=== PATIENT | female | born 1955 | race Caucasian/White ===

== ENCOUNTER → 2021-08-03 09:05 | Outpatient (BNVA) | payer MEDICARE, SELFPAY | PROVIDERS: PCP Internal Medicine; Visit Provider Internal Medicine | DX: M50.30 Other cervical disc degeneration, unspecified cervical region (principal); G89.4 Chronic pain syndrome | CPT/HCPCS: 99202 ==

== ENCOUNTER 2021-08-03 10:19 | Emergency (ER) | payer MEDICARE, SELFPAY ==
--- NOTE | 2021-08-03 | ECG_ITS ---
Test Reason : CP Blood Pressure : / mmHG Vent. Rate : 137 BPM Atrial Rate : 137 BPM P-R Int : 148 ms QRS Dur : 074 ms QT Int : 276 ms P-R-T Axes : 073 034 035 degrees QTc Int : 416 ms Sinus tachycardia Possible Left atrial enlargement Borderline ECG No previous ECGs available Referred By: Generic ED Physician Electronically Signed By:Shailesh Thrasher
--- NOTE | ~2021-08-03 | US_ITS ---
EXAMINATION: US ABDOMEN LIMITED CLINICAL INFORMATION: Upper abdominal pain. Assess for cholelithiasis. COMPARISON: CT abdomen and pelvis 08/03/2021. TECHNIQUE: Real-time imaging of the right upper quadrant abdominal viscera. FINDINGS: GALLBLADDER: There are 3 small polyps projecting into the gallbladder lumen, largest only 3 mm. There is no gallstone or sludge. No gallbladder wall thickening or subserosal edema or pericholecystic fluid. COMMON BILE DUCT: Normal in caliber measuring 0.5 cm in diameter. No ductal calculus. FREE FLUID: None. US/US abdomen limited IMPRESSION: 1. No cholelithiasis, gallbladder wall thickening, or biliary ductal dilatation. 2. 3 small gallbladder polyps, largest only 3 mm.
--- NOTE | ~2021-08-03 | CT_ITS ---
EXAMINATION: CT ABDOMEN AND PELVIS WITH CONTRAST CLINICAL INFORMATION: Upper abdominal pain COMPARISON: None TECHNIQUE: Multidetector volumetric images were obtained from the superior aspect of the liver through the pubic symphysis following administration 85 mL of Omnipaque 350 intravenous contrast. Sagittal and coronal reformatted images were obtained on the technologist's workstation. Oral contrast: Yes This CT examination was performed using dose optimization techniques as appropriate, variously including the following: *Automated exposure control *Adjustment of mA and/or kV according to patient size (this includes techniques or standardized protocols for targeted exams where dose is matched to indication/reason for exam; i.e. extremities or head) *Use of iterative reconstruction technique DLP: 511 mGy-cm FINDINGS: LUNG BASES: The visualized lung bases are unremarkable. LIVER, GALLBLADDER, AND BILIARY TREE: The liver is normal in size, shape, and attenuation. No focal hepatic lesion or biliary ductal dilatation is present. The gallbladder is unremarkable with no evidence of radiopaque gallstones, gallbladder wall thickening, or obvious pericholecystic inflammatory changes. PANCREAS: Unremarkable. SPLEEN: Unremarkable. ADRENAL GLANDS: Unremarkable. KIDNEYS AND URETERS: The kidneys are normal in size, shape, and attenuation. No hydronephrosis, hydroureter, or calculi seen. No perinephric stranding. BLADDER: Unremarkable. GASTROINTESTINAL TRACT: There is mild diverticulosis of the colon. There is no evidence of diverticulitis. There is a small duodenal diverticulum adjacent to the head of the pancreas. The small and large bowel are otherwise unremarkable. The appendix is unremarkable. Stomach is unremarkable. ABDOMINAL WALL: There is a small umbilical hernia containing fat. LYMPH NODES: Normal. VASCULAR: Unremarkable. PELVIC VISCERA: Unremarkable. OSSEOUS STRUCTURES: There are degenerative changes and scoliosis of the spine. There is a 1 cm sclerotic density in the left iliac bone. This is nonspecific but may represent a bone island. CT/CT abdomen pelvis w con IMPRESSION: Mild diverticulosis of the colon. No evidence of diverticulitis. Fleischner guidelines were followed.
[2021-08-03 11:12] VITALS: BP 114/73; PULSE 130; RESP 18; TEMP 36.6; O2SAT 99; BMI 26.4
--- NOTE | 2021-08-03 11:49 | ED.ABDPAIN ---
HPI - Abdominal Pain General Chief Complaint: Abdominal Pain Stated Complaint: Abd pain Time Seen by Provider: 08/03/21 11:39 Source: patient Mode of arrival: ambulatory Limitations: no limitations History of Present Illness HPI narrative: This is 65 years old female presented to the emergency department ambulatory with a chief complaint of abdominal pain, the pain is localized in the upper abdomen, no radiation no vomiting. She states she has been evaluated in our emergency department she was told that she has a UTI MD elicited complaint: abdominal pain Pertinent past history: none Onset (ago): week(s) (4) Pain Consistency: constant Location: diffuse Severity: moderate Quality: cramping Radiation: epigastric Migration to: no migration Exacerbating factors: nothing Relieving factors: nothing Related Data Home Medications Medication Instructions Recorded Confirmed oxycodone-acetaminophen 10 mg-325 1 tab PO QID PRN tab 08/03/21 mg tablet (Percocet) valacyclovir 500 mg tablet 500 mg PO DAILY 08/03/21 Previous Rx's Medication Instructions Recorded omeprazole 10 mg capsule,delayed 10 mg PO DAILY #20 cap 08/03/21 release oxycodone 5 mg capsule 5 mg PO Q8H PRN #12 cap 08/03/21 Allergies Allergy/AdvReac Type Severity Reaction Status Date / Time Sulfa (Sulfonamide Allergy Intermediate Vomiting Verified 08/03/21 11:12 Antibiotics) amoxicillin Allergy Unknown unknown Verified 08/03/21 11:12 Phenylpiperazine Allergy Unknown Unknown Verified 08/03/21 11:12 Antidepressant Tetracyclic Antidepressants Allergy Unknown Unknown Verified 08/03/21 11:12 Review of Systems Review of Systems Yes all other systems are reviewed and are negative Constitutional: Reports no additional constitutional complaints Reports system reviewed and no additional complaints, except as documented Cardiovascular: Reports no additional cardiovascular complaints Gastrointestinal: Denies diarrhea, Denies loose stools, Denies nausea and Denies vomiting Physical Exam Vital Signs: Vital Signs: Last Vital Signs Temp 97.8 F 08/03/21 11:12 Pulse 130 H 08/03/21 11:12 Resp 16 08/03/21 12:18 BP 114/73 08/03/21 11:12 Pulse Ox 99 08/03/21 11:12 BMI result Body Mass Index 26.4 Const: General: cooperative, comfortable and no acute distress HENMT: Head: Yes normal to inspection Face and sinus: Yes normal facial exam Mouth: Normal oral and palatal mucosa present Neck: Neck: Yes normal visual inspection, Yes full ROM and Yes no lymphadenopathy Chest: Chest palpation & inspection: normal inspection of the chest Resp: Effort & Inspection: normal respiratory effort Auscultation: clear to auscultation bilaterally Cardio: Jugular venous distension: no JVD Rate: regular rate Rhythm: regular rhythm GI: Inspection: Yes normal to inspection Palpation (GI): Soft to palpation, not firm, nontender and no guarding Skin: General skin exam: no rashes or lesions noted and elasticity normal Course Reevaluation(s) Reevaluation #1: Re-examination of the patient of 15 30 she is feeling better, CT scan of the abdomen and pelvis was normal, ultrasound showed a gallbladder polyp a no cholecystitis. I think the patient can be discharged home. I do know if the gallbladder polyp is giving the patient pain or not, I will refer her to surgery as outpatient MDM - Abdominal Pain Lab Data Result diagrams: 08/03/21 11:56 08/03/21 11:56 Labs: Lab Results 08/03/21 08/03/21 Range/Units 11:56 11:56 WBC 13.7 H (4.8-10.8) X10*3/uL RBC 3.67 L (4.20-5.50) X10*6/uL Hgb 12.3 (12.0-16.0) g/dl Hct 36.5 L (37.0-47.0) % MCV 99.5 H (80.0-98.0) fL MCH 33.5 H (27.0-33.0) pg MCHC 33.7 (31.0-35.0) g/dl RDW 12.4 (11.0-16.0) % Plt Count 445 H (160-400) X10*3/uL MPV 8.8 L (9.4-12.3) fL Immature Gran % (Auto) 1.0 H (0.0-0.4) % Neut % (Auto) 78.1 H (45-73) % Lymph % (Auto) 15.2 L (20-40) % Steele % (Auto) 5.2 (2-11) % Eos % (Auto) 0.1 (0-4) % Baso % (Auto) 0.4 (0-2) % Lymph # (Auto) 2.1 (1.2-4.9) X10*3/uL Steele # (Auto) 0.7 (0.1-1.2) X10*3/uL Eos # (Auto) 0.0 (0.0-0.4) X10*3/uL Baso # (Auto) 0.1 (0.0-0.2) X10*3/uL Abs Immat Gran (auto) 0.14 H (0.00-0.03) X10*3/uL Absolute Neuts (auto) 10.7 H (2.0-8.3) x10*3/uL Absolute Nucleated RBC 0.000 (0.0-0.012) X10*3/uL Nucleated RBC % (auto) 0.0 (0.0-0.2) /100WBC Sodium 138 (135-145) mmol/L Potassium 4.3 (3.3-5.1) mmol/L Chloride 108 (96-108) mmol/L Carbon Dioxide 20 L (22-29) mmol/L Anion Gap 14 (12-20) BUN 41 H (9-16) mg/dL Creatinine 0.83 (0.5-1.4) mg/dL Estim Creat Clear Calc 66.3 Estimated GFR > 60 Random Glucose 126 H (60-115) mg/dL Calcium 10.1 (8.4-10.2) mg/dL Total Bilirubin 0.4 (0.0-1.0) mg/dL AST 19 (5-31) U/L ALT 22 (0-31) U/L Alkaline Phosphatase 55 (39-117) U/L Total Protein 6.8 (6.5-8.0) g/dL Albumin 4.4 (3.5-5.0) g/dL Lipase 33 (8-78) U/L Imaging Data CT scan - abdomen: Radiologist's impression: is mild diverticulosis of the colon. There is no evidence of diverticulitis. There is a small duodenal diverticulum adjacent to the head of the pancreas. The small and large bowel are otherwise unremarkable. The appendix is unremarkable. Stomach is unremarkable. ABDOMINAL WALL: There is a small umbilical hernia containing fat. LYMPH NODES: Normal. VASCULAR: Unremarkable. PELVIC VISCERA: Unremarkable.? OSSEOUS STRUCTURES: There are degenerative changes and scoliosis of the spine. There is a 1 cm sclerotic density in the left iliac bone. This is nonspecific but may represent a bone island. CT/CT abdomen pelvis w con IMPRESSION: Mild diverticulosis of the colon. No evidence of diverticulitis. ? Fleischner guidelines were followed. Dictated By: Rimma Segal MD Signed By: <Electronically signed by Rimma Segal MD in [place]> 08/03/21 1330 DD/ 1318 US - abdomen: Radiologist's impression: CT abdomen and pelvis 08/03/2021. TECHNIQUE: Real-time imaging of the right upper quadrant abdominal viscera. FINDINGS: GALLBLADDER: There are 3 small polyps projecting into the gallbladder lumen, largest only 3 mm. There is no gallstone or sludge. No gallbladder wall thickening or subserosal edema or pericholecystic fluid. COMMON BILE DUCT: Normal in caliber measuring 0.5 cm in diameter. No ductal calculus. FREE FLUID: None. US/US abdomen limited IMPRESSION: ? 1. No cholelithiasis, gallbladder wall thickening, or biliary ductal dilatation. 2. 3 small gallbladder polyps, largest only 3 mm. ? Dictated By: Nando Reyes MD Signed By: <Electronically signed by Nando Reyes MD in [place]> Discharge Plan Discharge Clinical Impression: Abdominal pain in female, Gall bladder polyp Patient Disposition: Home, Self-Care Instructions: Abdominal Pain (ED) Additional Instructions: clear liquid diet,prilosec as directed return if worse Prescriptions: New oxycodone 5 mg capsule 5 mg PO Q8H PRN (Reason: pain) Qty: 12 RF: 0 omeprazole 10 mg capsule,delayed release(DR/EC) 10 mg PO DAILY Qty: 20 RF: 0 Referrals: Maykel Joseph MD [Physician] - 2 days PMF Past Medical History Medical History Chronic pain syndrome Colon, diverticulosis De Quervain's tenosynovitis Degeneration of cervical intervertebral disc Depression with anxiety Enchondroma of bone Herpes simplex type 2 infection Hyperlipidemia Lumbago Plantar fasciitis Rosacea Tobacco abuse Surgical History History of carpal tunnel release History of nasal surgery Hx of colonoscopy Social History Social History Alcohol intake: never Patient Tobacco Use Status: Former Tobacco user Use of substances other than those prescribed or required for medical reasons: No Advance Directives: No Advance Directives Information Provided: Yes
[2021-08-03 12:07] LABS: MANUAL DIFF FLAG NO
[2021-08-03 12:08] LABS: Basophils Absolute Auto 0.1 X10*3/uL (0.0-0.2); Basophils Percent Auto 0.4 % (0-2); Eosinophils Percent Auto 0.1 % (0-4); Hematocrit 36.5 % (37.0-47.0); Hemoglobin 12.3 g/dl (12.0-16.0); Imm Gran Abs Auto 0.14 X10*3/uL (0.00-0.03); Lymphocytes Absolute Auto 2.1 X10*3/uL (1.2-4.9); Lymphocytes Percent Auto 15.2 % (20-40); Mean Corpuscular HGB Conc 33.7 g/dl (31.0-35.0); Mean Corpuscular Hemoglobin 33.5 pg (27.0-33.0); Mean Corpuscular Volume 99.5 fL (80.0-98.0); Mean Platelet Volume 8.8 fL (9.4-12.3); Monocytes Absolute Auto 0.7 X10*3/uL (0.1-1.2); Monocytes Percent Auto 5.2 % (2-11); Neutrophils Absolute Auto 10.7 x10*3/uL (2.0-8.3); Neutrophils Percent Auto 78.1 % (45-73); Platelet Count 445 X10*3/uL (160-400); Red Blood Count 3.67 X10*6/uL (4.20-5.50); Red Cell Distribution Width 12.4 % (11.0-16.0); White Blood Count 13.7 X10*3/uL (4.8-10.8)
[2021-08-03 12:18] VITALS: RESP 16
[2021-08-03] MEDS: ondansetron HCL 4 MG/2 ML VIAL IVPUSH (12:18)
[2021-08-03] MEDS: 0.9 % Sodium Chloride 1,000 ML 999 ML IVCONT (12:18)
[2021-08-03] MEDS: Morphine Sulfate 4 MG/ML CARTRIDGE IVPUSH (12:18)
[2021-08-03 12:37] LABS: Alanine Aminotransferase 22 U/L (0-31); Albumin Level 4.4 g/dL (3.5-5.0); Alkaline Phosphatase 55 U/L (39-117); Anion Gap 14 (12-20); Aspartate Amino Transferase 19 U/L (5-31); Bilirubin Total 0.4 mg/dL (0.0-1.0); Blood Urea Nitrogen 41 mg/dL (9-16); Calcium 10.1 mg/dL (8.4-10.2); Carbon Dioxide 20 mmol/L (22-29); Chloride 108 mmol/L (96-108); Creatinine Clr Calc Pharmacy 66.3; Estimated Glomerular Filt Rate > 60; Glucose Random 126 mg/dL (60-115); Lipase 33 U/L (8-78); Potassium 4.3 mmol/L (3.3-5.1); Sodium 138 mmol/L (135-145); Total Protein 6.8 g/dL (6.5-8.0)
[2021-08-03] MEDS: iohexoL 350 MG/ML 100 ML INFUS..BTL IV (13:20)
[2021-08-03 13:40] VITALS: BP 110/70; RESP 18
[2021-08-03 15:52] LABS: Appearance Urine CLEAR; Color Urine YELLOW; Glucose Urine UA NEG (NEG); Leukocyte Esterase Urine NEG (NEG); Nitrite Urine NEG (NEG); PH 5.5 (5.0-8.0); Urine Blood NEG (NEG); Urine Ketones 5 MG/DL (NEG); Urine Protein NEG (NEG-TRACE)
[2021-08-03 16:00] VITALS: BP 108/67; PULSE 102; RESP 18; O2SAT 94
[2021-08-03 16:05] VITALS: PULSE 98
--- NOTE | 2021-08-03 16:05 | PC.NURSE ---
VITALS REPORTED TO DR PATEL. DARIN FOR OR HOME. PT AGREEABLE TO THIS PLAN. STATES NO QUESTIONS.
== END 2021-08-03 16:07 | disposition home or self-care (01) ==
PROVIDERS: Emergency Provider Emergency Medicine
DX: K82.4 Cholesterolosis of gallbladder (principal); R10.9 Unspecified abdominal pain; F17.200 Nicotine dependence, unspecified, uncomplicated
CPT/HCPCS: 36415; 74177; 76705; 80053; 81003; 83690; 85025; 93005; 96361; 96374; 96375; 99284; 99285; J2270; J2405; Q9967

== ENCOUNTER → 2021-08-17 10:31 | Outpatient (BNVA) | payer MEDICARE, SELFPAY | PROVIDERS: Visit Provider Internal Medicine | DX: G89.4 Chronic pain syndrome (principal) | CPT/HCPCS: 99212 ==

== ENCOUNTER → 2021-09-11 10:27 | Outpatient (BNVA) | payer MEDICARE, SELFPAY | PROVIDERS: Visit Provider Internal Medicine | DX: Z51.81 Encounter for therapeutic drug level monitoring (principal); F11.20 Opioid dependence, uncomplicated; G89.4 Chronic pain syndrome | CPT/HCPCS: 99212 ==

== ENCOUNTER → 2021-10-12 10:33 | Outpatient (BNVA) | payer MEDICARE, SELFPAY | PROVIDERS: Visit Provider Internal Medicine | DX: Z51.81 Encounter for therapeutic drug level monitoring (principal); F11.20 Opioid dependence, uncomplicated; G89.4 Chronic pain syndrome | CPT/HCPCS: 99212 ==

== ENCOUNTER → 2021-11-09 10:40 | Outpatient (BNVA) | payer MEDICARE, SELFPAY | PROVIDERS: Visit Provider Internal Medicine | DX: G89.4 Chronic pain syndrome (principal); Z79.891 Long term (current) use of opiate analgesic | CPT/HCPCS: 99212 ==

== ENCOUNTER → 2021-12-07 10:46 | Outpatient (BNVA) | payer MEDICARE, SELFPAY | PROVIDERS: Visit Provider Internal Medicine | DX: Z51.81 Encounter for therapeutic drug level monitoring (principal); F11.20 Opioid dependence, uncomplicated | CPT/HCPCS: 99212 ==

== ENCOUNTER → 2022-01-04 10:23 | Outpatient (BNVA) | payer MEDICARE, SELFPAY | PROVIDERS: Visit Provider Internal Medicine | DX: Z51.81 Encounter for therapeutic drug level monitoring (principal); F11.20 Opioid dependence, uncomplicated | CPT/HCPCS: 99211 ==

== ENCOUNTER → 2022-02-08 09:55 | Outpatient (BNVA) | payer MEDICARE, SELFPAY | PROVIDERS: Visit Provider Internal Medicine | DX: Z51.81 Encounter for therapeutic drug level monitoring (principal); F11.20 Opioid dependence, uncomplicated; M50.30 Other cervical disc degeneration, unspecified cervical region; G89.4 Chronic pain syndrome | CPT/HCPCS: 99212 ==

== ENCOUNTER → 2022-03-15 09:47 | Outpatient (BNVA) | payer MEDICARE, SELFPAY | PROVIDERS: PCP Obstetrics & Gynecology; Visit Provider Internal Medicine | DX: Z51.81 Encounter for therapeutic drug level monitoring (principal); F11.20 Opioid dependence, uncomplicated | CPT/HCPCS: 99211 ==

== ENCOUNTER 2022-04-12 09:42 | Outpatient (REF) | payer MEDICARE, SELFPAY ==
[2022-04-12 11:20] LABS: MANUAL DIFF FLAG NO
[2022-04-12 12:05] LABS: Basophils Absolute Auto 0.1 X10*3/uL (0.0-0.2); Basophils Percent Auto 0.7 % (0-2); Eosinophils Absolute Auto 0.2 X10*3/uL (0.0-0.4); Eosinophils Percent Auto 2.2 % (0-4); Hematocrit 44.1 % (37.0-47.0); Hemoglobin 14.9 g/dl (12.0-16.0); Imm Gran Abs Auto 0.03 X10*3/uL (0.00-0.03); Imm Gran Pct Auto 0.4 % (0.0-0.4); Lymphocytes Percent Auto 29.6 % (20-40); Mean Corpuscular HGB Conc 33.8 g/dl (31.0-35.0); Mean Corpuscular Hemoglobin 32.7 pg (27.0-33.0); Mean Corpuscular Volume 96.7 fL (80.0-98.0); Monocytes Absolute Auto 0.6 X10*3/uL (0.1-1.2); Monocytes Percent Auto 9.3 % (2-11); Neutrophils Absolute Auto 3.9 x10*3/uL (2.0-8.3); Neutrophils Percent Auto 57.8 % (45-73); Platelet Count 379 X10*3/uL (160-400); Red Blood Count 4.56 X10*6/uL (4.20-5.50); Red Cell Distribution Width 12.3 % (11.0-16.0); White Blood Count 6.7 X10*3/uL (4.8-10.8)
[2022-04-12 12:18] LABS: Estimated Average Glucose 108 mg/dL; Hemoglobin A1c % 5.4 %
[2022-04-12 12:53] LABS: Alanine Aminotransferase 25 U/L (0-31); Albumin Level 4.6 g/dL (3.5-5.0); Alkaline Phosphatase 72 U/L (39-117); Anion Gap 16 (12-20); Aspartate Amino Transferase 23 U/L (5-31); Bilirubin Direct 0.2 mg/dL (0.0-0.5); Bilirubin Total 0.4 mg/dL (0.0-1.0); Blood Urea Nitrogen 17 mg/dL (9-16); Calcium 9.3 mg/dL (8.4-10.2); Carbon Dioxide 24 mmol/L (22-29); Chloride 103 mmol/L (96-108); Estimated Glomerular Filt Rate > 60; Glucose Random 102 mg/dL (60-115); Potassium 5.1 mmol/L (3.3-5.1); Sodium 138 mmol/L (135-145); Total Protein 7.1 g/dL (6.5-8.0)
== END 2022-04-12 09:43 | disposition home or self-care (01) ==
LOC: HO.LAB 09:42
PROVIDERS: Absent Provider Surgery; PCP Obstetrics & Gynecology; Visit Provider Internal Medicine
DX: R10.13 Epigastric pain (principal); R10.11 Right upper quadrant pain; K82.4 Cholesterolosis of gallbladder; E78.5 Hyperlipidemia, unspecified; Z72.0 Tobacco use; Z79.899 Other long term (current) drug therapy; Z79.891 Long term (current) use of opiate analgesic
CPT/HCPCS: 36415; 80048; 80076; 83036; 85025; 99202; 99211

== ENCOUNTER → 2022-05-14 10:50 | Outpatient (BNVA) | payer MEDICARE, SELFPAY | PROVIDERS: PCP Obstetrics & Gynecology; Visit Provider Internal Medicine | DX: G89.4 Chronic pain syndrome (principal); Z79.891 Long term (current) use of opiate analgesic | CPT/HCPCS: 99212 ==

== ENCOUNTER → 2022-06-11 09:58 | Outpatient (BNVA) | payer MEDICARE, SELFPAY | PROVIDERS: PCP Obstetrics & Gynecology; Visit Provider Internal Medicine | DX: Z51.81 Encounter for therapeutic drug level monitoring (principal); Z79.899 Other long term (current) drug therapy | CPT/HCPCS: 99211 ==

== ENCOUNTER → 2022-07-12 09:43 | Outpatient (BNVA) | payer MEDICARE, SELFPAY | PROVIDERS: PCP Obstetrics & Gynecology; Visit Provider Anesthesiology | DX: Z51.81 Encounter for therapeutic drug level monitoring (principal); F11.20 Opioid dependence, uncomplicated | CPT/HCPCS: 99211 ==

== ENCOUNTER 2022-07-27 08:53 | Outpatient (REF) | payer MEDICARE, SELFPAY ==
--- NOTE | ~2022-07-27 | US_ITS ---
EXAMINATION: US ABDOMEN LIMITED CLINICAL INFORMATION: Right upper quadrant pain. COMPARISON: Ultrasound abdomen limited and CT abdomen and pelvis 08/03/2021. TECHNIQUE: Real-time imaging of the right upper quadrant abdominal viscera. FINDINGS: PANCREAS: Normal. LIVER: Normal. The liver is normal in size. The liver contour is normal. Parenchymal echogenicity is normal. No focal hepatic lesion. There is no intrahepatic biliary duct dilatation seen. GALLBLADDER: Gallbladder is normal in size. There are 3 echogenic densities adjacent to the gallbladder wall that do not move or shadow suggestive of gallbladder wall polyps. These measure 3 x 6 x 4 mm, 4 x 5 x 3 mm and 3 x 2 x 4 mm. No definite gallstones. COMMON BILE DUCT: Normal in caliber measuring 0.5 cm in diameter. RIGHT KIDNEY: Normal. No hydronephrosis. No renal calculi or focal parenchymal lesions. The kidney measures 10.7 cm in maximum dimension. FREE FLUID: None. US/US abdomen limited IMPRESSION: Small gallbladder wall polyps similar to July 2021 exam. Otherwise unremarkable exam.
== END 2022-07-27 08:54 | disposition home or self-care (01) ==
LOC: HO.US 08:53
PROVIDERS: Visit Provider Surgery
DX: R10.11 Right upper quadrant pain (principal); R10.13 Epigastric pain
CPT/HCPCS: 76705

== ENCOUNTER → 2022-08-09 08:16 | Outpatient (BNVA) | payer MEDICARE, SELFPAY | PROVIDERS: PCP Obstetrics & Gynecology; Visit Provider Internal Medicine | DX: G89.4 Chronic pain syndrome (principal); M70.62 Trochanteric bursitis, left hip; Z79.891 Long term (current) use of opiate analgesic | CPT/HCPCS: 99212 ==

== ENCOUNTER → 2022-08-11 11:08 | Outpatient (BNVA) | payer MEDICARE, SELFPAY | PROVIDERS: PCP Obstetrics & Gynecology; Visit Provider Surgery | DX: G89.4 Chronic pain syndrome (principal); K82.4 Cholesterolosis of gallbladder; F41.8 Other specified anxiety disorders; Z79.891 Long term (current) use of opiate analgesic | CPT/HCPCS: 99212 ==

== ENCOUNTER → 2022-09-10 10:42 | Outpatient (BNVA) | payer MEDICARE, SELFPAY | PROVIDERS: PCP Obstetrics & Gynecology; Visit Provider Internal Medicine | DX: G89.4 Chronic pain syndrome (principal); M70.62 Trochanteric bursitis, left hip; M47.816 Spondylosis without myelopathy or radiculopathy, lumbar region; Z79.891 Long term (current) use of opiate analgesic | CPT/HCPCS: 99212 ==

== ENCOUNTER → 2022-10-08 08:55 | Outpatient (BNVA) | payer MEDICARE, SELFPAY | PROVIDERS: PCP Obstetrics & Gynecology; Visit Provider Internal Medicine | DX: Z13.89 Encounter for screening for other disorder (principal) ==

== ENCOUNTER 2022-10-20 12:42 | Day surgery (SDC) | payer MEDICARE, SELFPAY ==
[2022-10-13 15:27] VITALS: BMI 24.2
--- NOTE | ~2022-10-20 | FL_ITS ---
EXAMINATION: XR FLUOROSCOPY WITH IMAGES CLINICAL INFORMATION: Lumbar and hip pain. Pain management procedures. COMPARISON: CT pelvis 08/03/2021 TECHNIQUE: Fluoroscopy Supervised By: Dr. Gumaro Newberry. Fluoroscopy Time: 0.3 minutes. Cumulative Dose: 2.45 mGy. DAP: 0.572 Gycm2. Images: 4. FINDINGS: There are spinal needles overlying the bilateral outer L3, L4, and L5 neural foramen. There is contrast seen in the respective nerve sheaths. Some early transforaminal epidural extension is suggested. No visible vascular communication. There are multilevel degenerative changes lumbar spine with variable disc narrowing and lumbar vertebral body spurring. There is also a spinal needle seen with tip at the left hip greater trochanter. There is contrast overlying the trochanter/bursal. No visible vascular communication. FL/FL guidance in OR IMPRESSION: Fluoroscopy for pain management procedures.
[2022-10-20 13:12] VITALS: BP 130/83; PULSE 88; RESP 16; TEMP 36.5; O2SAT 97
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
--- NOTE | 2022-10-20 16:07 | P.BOP_ITS ---
Brief Operative Note Date of Service: 10/20/22 Pre-op diagnosis: Lumbar spondylosis, Left greater trochanteric syndrome/bursitis Post-op diagnosis: same Procedure: Therapeutic bilateral L3, L4 medial branch blocks, L5 dorsal ramus block; Left greater trochanteric bursa steroid injection Implants: None Surgeon: Gumaro Newberry MD Anesthesia: MAC Was an Safety Representative used for this Procedure?: No Estimated blood loss (mL): 1 Pathology: none sent Condition: stable Disposition: PACU
--- NOTE | 2022-10-20 16:07 | MHC.SHP ---
Pre-Procedural Eval Section A Date of Service: 10/20/22 The patient is an INPATIENT: No Changes since office visit: Yes Patient answered all questions The History & Physical has been completed within 30 days and I have reviewed it.: No Section B Chief Complaint: Trochanteric bursitis, L hip,lumbar spondylosis Relevant Family History (Specify if Yes): No Relevant Social History: None Present Medications: see Short Stay Collaborative assessment Medical History: No relevant PMH History of Previous Operations: No relevant previous surgery Allergies: Allergies Allergy/AdvReac Type Severity Reaction Status Date / Time Phenylpiperazine Allergy Severe skin Verified 10/20/22 13:06 Antidepressant sores Tetracyclic Antidepressants Allergy Severe skin Verified 10/20/22 13:06 sores amoxicillin Allergy Intermediate Nausea and Verified 10/20/22 13:06 Vomiting Sulfa (Sulfonamide Allergy Intermediate Nausea and Verified 10/20/22 13:06 Antibiotics) Vomiting Review of Systems Sugical H&P ROS: Negative: Constitution, Cardiovascular and Respiratory Exam Surgical H&P Exam: Normal: HEENT, Normal: Heart and Normal: Lungs Plan Diagnosis/Plan: Unchanged I have reviewed the history and physical and performed a pertinent physical examination on my patient. No changes have occurred unless specified. Time Spent With Patient Time: Total time managing care of this patient today ____ minutes.
--- NOTE | 2022-10-20 16:08 | W.PM.OPN ---
Operative Note Operative Note Date of Service: 10/20/22 Narrative: Lumbar Medial Branch Block, Bilateral L3, L4 medial branches and L5 Dorsal Ramus (2 levels, 3 nerves) After obtaining written consent, pre-procedure blood pressure and pulse were recorded and are in the nursing record for review. The patient was placed in a prone position and sedated by the anesthesiologist. The respective lumbosacral area was prepped with chloraprep and draped in sterile fashion. The skin over the target medial branch nerves was anesthetized with 0.5% lidocaine. A 22 gauge 3.5 inch needle was inserted into the target medial branch nerve under fluoroscopic guidance. No paresthesias were elicited with needle placement and aspiration was negative for blood and CSF. Next, 0.2cc of omnipaque 180 was injected to verify positioning. Next 6.6mg DepoMedrol mixed with 0.5 ml 0.5% ropivicaine was injected (0.5cc total per level). The identical procedure was performed at the remaining levels. The skin was cleansed and a sterile bandage was applied. Greater Trochanteric Bursa Injection, Left The skin was prepped with Chloroprep, and draped in a sterile fashion. With the use of fluroscopy the greater trochanter was identified. With a 25-gauge 1.5 hypodermic needle 1% lidocaine was injected subcutaneously over the entry site. A 22-gauge 3.5 spinal needle was then advanced toward the trochanteric bursa. Once in position, and after negative aspiration, 0.5mL of Omnipaque was injected outlining the bursa followed by injection of 40mg Depo Medrol mixed with 0.5% ropivcaine (3mL total). There was no evidence of paresthesias throughout needle placement. The stylet was replaced and then the needle was withdrawn. The patient tolerated the procedures well and no complications were encountered. Following the procedures the patient's vital signs were stable. The patient was discharged home in good condition with post-procedural instructions. Time Out: Immediately prior to the procedure, the following was verbally confirmed that there is a signed consent form and that the correct patient, planned procedure, site and side are consistent with documentation and that necessary equipment and/or blood products are available prior to the start of the case. Complications: none EBL: <2 cc
[2022-10-20 16:12] VITALS: BP 115/83; PULSE 73; RESP 16; TEMP 36.4; O2SAT 97
[2022-10-20 16:28] VITALS: BP 137/71; PULSE 77; RESP 18; TEMP 36.5; O2SAT 97
== END 2022-10-20 16:50 | disposition home or self-care (01) ==
PROVIDERS: PCP Student in an Organized Health Care Education/Training Program; Visit Provider Internal Medicine
PROC: (CPT 64493; principal; 2022-10-20 14:40)
DX: M47.816 Spondylosis without myelopathy or radiculopathy, lumbar region (principal); G89.4 Chronic pain syndrome; M70.62 Trochanteric bursitis, left hip; M25.552 Pain in left hip; E78.5 Hyperlipidemia, unspecified; F41.8 Other specified anxiety disorders; Z79.899 Other long term (current) drug therapy; Z79.891 Long term (current) use of opiate analgesic; Z88.2 Allergy status to sulfonamides; Z88.1 Allergy status to other antibiotic agents; Z88.8 Allergy status to other drugs, medicaments and biological substances; Z87.891 Personal history of nicotine dependence
CPT/HCPCS: 64493; 64494; 20610; J1040; J2250; J2405; J2795; J3010

== ENCOUNTER → 2022-11-05 08:56 | Outpatient (BNVA) | payer MEDICARE, SELFPAY | PROVIDERS: PCP Student in an Organized Health Care Education/Training Program; Visit Provider Internal Medicine | DX: Z51.81 Encounter for therapeutic drug level monitoring (principal); M70.62 Trochanteric bursitis, left hip; M47.816 Spondylosis without myelopathy or radiculopathy, lumbar region; Z79.891 Long term (current) use of opiate analgesic | CPT/HCPCS: 99212 ==

== ENCOUNTER → 2022-12-10 09:15 | Outpatient (BNVA) | payer MEDICARE, SELFPAY | PROVIDERS: PCP Student in an Organized Health Care Education/Training Program; Visit Provider Nurse Practitioner Family | DX: M70.62 Trochanteric bursitis, left hip (principal); G89.4 Chronic pain syndrome; M50.30 Other cervical disc degeneration, unspecified cervical region; M47.816 Spondylosis without myelopathy or radiculopathy, lumbar region; Z79.891 Long term (current) use of opiate analgesic | CPT/HCPCS: 99212 ==

== ENCOUNTER → 2023-01-07 08:54 | Outpatient (BNVA) | payer MEDICARE, SELFPAY | PROVIDERS: PCP Student in an Organized Health Care Education/Training Program; Visit Provider Nurse Practitioner Family | DX: Z51.81 Encounter for therapeutic drug level monitoring (principal); F11.20 Opioid dependence, uncomplicated; M70.62 Trochanteric bursitis, left hip; M50.30 Other cervical disc degeneration, unspecified cervical region; M47.816 Spondylosis without myelopathy or radiculopathy, lumbar region; Z79.891 Long term (current) use of opiate analgesic; G89.4 Chronic pain syndrome | CPT/HCPCS: 99212 ==

== ENCOUNTER → 2023-02-04 08:52 | Outpatient (BNVA) | payer MEDICARE, SELFPAY | PROVIDERS: PCP Student in an Organized Health Care Education/Training Program; Visit Provider Internal Medicine | DX: Z51.81 Encounter for therapeutic drug level monitoring (principal); M70.62 Trochanteric bursitis, left hip; M47.816 Spondylosis without myelopathy or radiculopathy, lumbar region; Z79.891 Long term (current) use of opiate analgesic | CPT/HCPCS: 99212 ==

== ENCOUNTER 2023-03-04 09:17 | Outpatient (AMB) | payer MEDICARE, SELFPAY ==
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
[2023-03-04 09:41] VITALS: BP 128/76; PULSE 86; RESP 14; O2SAT 96; BMI 24.9
== END 2023-03-04 09:49 | disposition home or self-care (01) ==
PROVIDERS: PCP Student in an Organized Health Care Education/Training Program; Visit Provider Internal Medicine
DX: M50.30 Other cervical disc degeneration, unspecified cervical region (principal); M47.816 Spondylosis without myelopathy or radiculopathy, lumbar region; Z79.891 Long term (current) use of opiate analgesic
CPT/HCPCS: 99213; 99214

== ENCOUNTER → 2023-03-04 09:17 | Outpatient (BNVA) | payer MEDICARE, SELFPAY | PROVIDERS: PCP Student in an Organized Health Care Education/Training Program; Visit Provider Internal Medicine | DX: Z51.81 Encounter for therapeutic drug level monitoring (principal); M47.816 Spondylosis without myelopathy or radiculopathy, lumbar region; M50.30 Other cervical disc degeneration, unspecified cervical region; Z79.891 Long term (current) use of opiate analgesic | CPT/HCPCS: 99212 ==

== ENCOUNTER → 2023-04-01 08:21 | Outpatient (BNVA) | payer MEDICARE, SELFPAY | PROVIDERS: PCP Student in an Organized Health Care Education/Training Program; Visit Provider Internal Medicine ==

== ENCOUNTER 2023-05-06 07:56 | Outpatient (AMB) | payer MEDICARE, SELFPAY ==
[2023-05-06 08:00] VITALS: BP 142/94; PULSE 101; RESP 14; O2SAT 96; BMI 25.0
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
== END 2023-05-06 08:31 | disposition home or self-care (01) ==
PROVIDERS: PCP Student in an Organized Health Care Education/Training Program; Visit Provider Internal Medicine
DX: M47.816 Spondylosis without myelopathy or radiculopathy, lumbar region (principal); M50.30 Other cervical disc degeneration, unspecified cervical region; Z79.891 Long term (current) use of opiate analgesic
CPT/HCPCS: 99213

== ENCOUNTER → 2023-05-06 07:56 | Outpatient (BNVA) | payer MEDICARE, SELFPAY | PROVIDERS: PCP Student in an Organized Health Care Education/Training Program; Visit Provider Internal Medicine | DX: M47.816 Spondylosis without myelopathy or radiculopathy, lumbar region (principal); M50.30 Other cervical disc degeneration, unspecified cervical region; Z79.891 Long term (current) use of opiate analgesic | CPT/HCPCS: 99212 ==

== ENCOUNTER 2023-06-13 08:02 | Outpatient (AMB) | payer MEDICARE, SELFPAY ==
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
[2023-06-13 08:06] VITALS: PULSE 97; RESP 14; O2SAT 96; BMI 24.9
== END 2023-06-13 08:36 | disposition home or self-care (01) ==
PROVIDERS: PCP Student in an Organized Health Care Education/Training Program; Visit Provider Internal Medicine
DX: Z79.891 Long term (current) use of opiate analgesic (principal); G89.4 Chronic pain syndrome
CPT/HCPCS: 99213

== ENCOUNTER → 2023-06-13 08:02 | Outpatient (BNVA) | payer MEDICARE, SELFPAY | PROVIDERS: PCP Student in an Organized Health Care Education/Training Program; Visit Provider Internal Medicine | DX: Z51.81 Encounter for therapeutic drug level monitoring (principal); G89.4 Chronic pain syndrome; Z79.891 Long term (current) use of opiate analgesic | CPT/HCPCS: 99212 ==

== ENCOUNTER 2023-07-11 08:15 | Outpatient (AMB) | payer MEDICARE, SELFPAY ==
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
[2023-07-11 08:19] VITALS: BP 137/82; PULSE 103; RESP 12; O2SAT 92; BMI 24.7
== END 2023-07-11 08:53 | disposition home or self-care (01) ==
PROVIDERS: PCP Student in an Organized Health Care Education/Training Program; Visit Provider Internal Medicine
DX: M50.30 Other cervical disc degeneration, unspecified cervical region (principal); M47.816 Spondylosis without myelopathy or radiculopathy, lumbar region; Z79.891 Long term (current) use of opiate analgesic
CPT/HCPCS: 99214

== ENCOUNTER → 2023-07-11 08:15 | Outpatient (BNVA) | payer MEDICARE, SELFPAY | PROVIDERS: PCP Student in an Organized Health Care Education/Training Program; Visit Provider Internal Medicine | DX: Z51.81 Encounter for therapeutic drug level monitoring (principal); M50.30 Other cervical disc degeneration, unspecified cervical region; M47.816 Spondylosis without myelopathy or radiculopathy, lumbar region; Z79.891 Long term (current) use of opiate analgesic | CPT/HCPCS: 99212 ==

== ENCOUNTER 2023-08-08 08:02 | Outpatient (AMB) | payer MEDICARE, SELFPAY ==
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
[2023-08-08 08:16] VITALS: BP 133/75; PULSE 90; RESP 12; O2SAT 93; BMI 25.0
== END 2023-08-08 08:50 | disposition home or self-care (01) ==
PROVIDERS: PCP Student in an Organized Health Care Education/Training Program; Visit Provider Internal Medicine
DX: G89.4 Chronic pain syndrome (principal); Z79.891 Long term (current) use of opiate analgesic
CPT/HCPCS: 99213

== ENCOUNTER → 2023-08-08 08:02 | Outpatient (BNVA) | payer MEDICARE, SELFPAY | PROVIDERS: PCP Student in an Organized Health Care Education/Training Program; Visit Provider Internal Medicine | DX: Z51.81 Encounter for therapeutic drug level monitoring (principal); G89.4 Chronic pain syndrome; Z79.891 Long term (current) use of opiate analgesic | CPT/HCPCS: 99212 ==

== ENCOUNTER 2023-09-05 07:55 | Outpatient (AMB) | payer MEDICARE, SELFPAY ==
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
[2023-09-05 08:03] VITALS: BP 133/79; PULSE 87; RESP 12; O2SAT 96; BMI 25.3
== END 2023-09-05 09:18 | disposition home or self-care (01) ==
PROVIDERS: PCP Student in an Organized Health Care Education/Training Program; Visit Provider Nurse Practitioner Family
DX: Z79.891 Long term (current) use of opiate analgesic (principal); G89.4 Chronic pain syndrome; M50.30 Other cervical disc degeneration, unspecified cervical region; M47.816 Spondylosis without myelopathy or radiculopathy, lumbar region
CPT/HCPCS: 99214

== ENCOUNTER → 2023-09-05 07:55 | Outpatient (BNVA) | payer MEDICARE, SELFPAY | PROVIDERS: PCP Student in an Organized Health Care Education/Training Program; Visit Provider Internal Medicine | DX: Z51.81 Encounter for therapeutic drug level monitoring (principal); M50.30 Other cervical disc degeneration, unspecified cervical region; M47.816 Spondylosis without myelopathy or radiculopathy, lumbar region; G89.4 Chronic pain syndrome; Z79.891 Long term (current) use of opiate analgesic | CPT/HCPCS: 99212 ==

== ENCOUNTER 2023-10-07 08:19 | Outpatient (AMB) | payer MEDICARE, SELFPAY ==
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
[2023-10-07 08:23] VITALS: BP 140/82; PULSE 95; RESP 12; O2SAT 94; BMI 25.5
== END 2023-10-07 08:47 | disposition home or self-care (01) ==
PROVIDERS: PCP Student in an Organized Health Care Education/Training Program; Visit Provider Internal Medicine
DX: G89.4 Chronic pain syndrome (principal); Z79.891 Long term (current) use of opiate analgesic
CPT/HCPCS: 99213

== ENCOUNTER → 2023-10-07 08:19 | Outpatient (BNVA) | payer MEDICARE, SELFPAY | PROVIDERS: PCP Student in an Organized Health Care Education/Training Program; Visit Provider Internal Medicine | DX: Z51.81 Encounter for therapeutic drug level monitoring (principal) | CPT/HCPCS: 99212 ==

== ENCOUNTER 2023-11-04 08:50 | Outpatient (AMB) | payer MEDICARE, SELFPAY ==
[2023-11-04 08:57] VITALS: BP 149/66; PULSE 86; RESP 12; O2SAT 95; BMI 25.5
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
== END 2023-11-04 09:24 | disposition home or self-care (01) ==
PROVIDERS: PCP Student in an Organized Health Care Education/Training Program; Visit Provider Internal Medicine
DX: G89.4 Chronic pain syndrome (principal); Z79.891 Long term (current) use of opiate analgesic
CPT/HCPCS: 99213

== ENCOUNTER → 2023-11-04 08:50 | Outpatient (BNVA) | payer MEDICARE, SELFPAY | PROVIDERS: PCP Student in an Organized Health Care Education/Training Program; Visit Provider Internal Medicine | DX: Z51.81 Encounter for therapeutic drug level monitoring (principal); G89.4 Chronic pain syndrome; Z79.891 Long term (current) use of opiate analgesic | CPT/HCPCS: 99212 ==

== ENCOUNTER 2023-12-02 08:20 | Outpatient (AMB) | payer MEDICARE, SELFPAY ==
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
[2023-12-02 08:28] VITALS: BP 139/65; PULSE 106; RESP 12; O2SAT 95; BMI 25.5
== END 2023-12-02 08:57 | disposition home or self-care (01) ==
PROVIDERS: PCP Student in an Organized Health Care Education/Training Program; Visit Provider Internal Medicine
DX: G89.4 Chronic pain syndrome (principal); Z79.891 Long term (current) use of opiate analgesic
CPT/HCPCS: 99213

== ENCOUNTER → 2023-12-02 08:20 | Outpatient (BNVA) | payer MEDICARE, SELFPAY | PROVIDERS: PCP Student in an Organized Health Care Education/Training Program; Visit Provider Internal Medicine | DX: G89.4 Chronic pain syndrome (principal); M79.7 Fibromyalgia; Z79.891 Long term (current) use of opiate analgesic | CPT/HCPCS: 99212 ==

== ENCOUNTER 2023-12-30 08:13 | Outpatient (AMB) | payer MEDICARE, SELFPAY ==
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
[2023-12-30 08:19] VITALS: BP 130/66; PULSE 98; RESP 14; O2SAT 97; BMI 26.8
== END 2023-12-30 08:59 | disposition home or self-care (01) ==
PROVIDERS: PCP Student in an Organized Health Care Education/Training Program; Visit Provider Internal Medicine
DX: G89.4 Chronic pain syndrome (principal); R10.13 Epigastric pain; M47.816 Spondylosis without myelopathy or radiculopathy, lumbar region; Z79.891 Long term (current) use of opiate analgesic
CPT/HCPCS: 99213

== ENCOUNTER → 2023-12-30 08:13 | Outpatient (BNVA) | payer MEDICARE, SELFPAY | PROVIDERS: PCP Student in an Organized Health Care Education/Training Program; Visit Provider Internal Medicine | DX: G89.4 Chronic pain syndrome (principal); M47.816 Spondylosis without myelopathy or radiculopathy, lumbar region; R10.13 Epigastric pain; Z79.891 Long term (current) use of opiate analgesic | CPT/HCPCS: 99212 ==

== ENCOUNTER 2024-02-03 08:08 | Outpatient (AMB) | payer MEDICARE, SELFPAY ==
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
[2024-02-03 08:14] VITALS: BP 152/80; PULSE 83; RESP 14; O2SAT 95; BMI 26.1
== END 2024-02-03 08:36 | disposition home or self-care (01) ==
PROVIDERS: PCP Student in an Organized Health Care Education/Training Program; Visit Provider Internal Medicine
DX: G89.4 Chronic pain syndrome (principal); Z79.891 Long term (current) use of opiate analgesic
CPT/HCPCS: 99213

== ENCOUNTER → 2024-02-03 08:08 | Outpatient (BNVA) | payer MEDICARE, SELFPAY | PROVIDERS: PCP Student in an Organized Health Care Education/Training Program; Visit Provider Internal Medicine | DX: Z51.81 Encounter for therapeutic drug level monitoring (principal); G89.4 Chronic pain syndrome; Z79.891 Long term (current) use of opiate analgesic | CPT/HCPCS: 99212 ==

== ENCOUNTER 2024-03-02 08:23 | Outpatient (AMB) | payer MEDICARE, SELFPAY ==
[2024-03-02 08:25] VITALS: BP 143/69; PULSE 99; RESP 14; O2SAT 97; BMI 26.1
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
== END 2024-03-02 08:53 | disposition home or self-care (01) ==
PROVIDERS: PCP Student in an Organized Health Care Education/Training Program; Visit Provider Internal Medicine
DX: G89.4 Chronic pain syndrome (principal); Z79.891 Long term (current) use of opiate analgesic
CPT/HCPCS: 99213

== ENCOUNTER → 2024-03-02 08:23 | Outpatient (BNVA) | payer MEDICARE, SELFPAY | PROVIDERS: PCP Student in an Organized Health Care Education/Training Program; Visit Provider Internal Medicine | DX: G89.4 Chronic pain syndrome (principal); Z79.891 Long term (current) use of opiate analgesic | CPT/HCPCS: 99212 ==

== ENCOUNTER 2024-03-30 08:30 | Outpatient (AMB) | payer MEDICARE, SELFPAY ==
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
[2024-03-30 08:37] VITALS: BP 139/79; PULSE 96; RESP 14; O2SAT 96
== END 2024-03-30 08:54 | disposition home or self-care (01) ==
PROVIDERS: PCP Student in an Organized Health Care Education/Training Program; Visit Provider Internal Medicine
DX: G89.4 Chronic pain syndrome (principal); M47.816 Spondylosis without myelopathy or radiculopathy, lumbar region; Z79.891 Long term (current) use of opiate analgesic
CPT/HCPCS: 99213

== ENCOUNTER → 2024-03-30 08:30 | Outpatient (BNVA) | payer MEDICARE, SELFPAY | PROVIDERS: PCP Student in an Organized Health Care Education/Training Program; Visit Provider Internal Medicine | DX: M47.816 Spondylosis without myelopathy or radiculopathy, lumbar region (principal); G89.4 Chronic pain syndrome; Z79.891 Long term (current) use of opiate analgesic | CPT/HCPCS: 99212 ==

== ENCOUNTER 2024-04-27 08:39 | Outpatient (AMB) | payer MEDICARE, SELFPAY ==
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
[2024-04-27 08:49] VITALS: BP 145/89; PULSE 97; O2SAT 98; BMI 26.0
== END 2024-04-27 08:55 | disposition home or self-care (01) ==
PROVIDERS: PCP Student in an Organized Health Care Education/Training Program; Visit Provider Nurse Practitioner Family
DX: Z79.891 Long term (current) use of opiate analgesic (principal); M47.816 Spondylosis without myelopathy or radiculopathy, lumbar region; G89.4 Chronic pain syndrome; M25.511 Pain in right shoulder; M50.30 Other cervical disc degeneration, unspecified cervical region
CPT/HCPCS: 99214; G2211

== ENCOUNTER → 2024-04-27 08:39 | Outpatient (BNVA) | payer MEDICARE, SELFPAY | PROVIDERS: PCP Student in an Organized Health Care Education/Training Program; Visit Provider Nurse Practitioner Family | DX: M47.816 Spondylosis without myelopathy or radiculopathy, lumbar region (principal); M25.511 Pain in right shoulder; G89.4 Chronic pain syndrome; M50.30 Other cervical disc degeneration, unspecified cervical region; Z79.891 Long term (current) use of opiate analgesic | CPT/HCPCS: 99212 ==

== ENCOUNTER 2024-05-25 08:21 | Outpatient (AMB) | payer MEDICARE, SELFPAY ==
[2024-05-25 08:32] VITALS: BP 130/74; PULSE 82; O2SAT 98; BMI 25.8
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
== END 2024-05-25 08:44 | disposition home or self-care (01) ==
PROVIDERS: PCP Student in an Organized Health Care Education/Training Program; Visit Provider Registered Nurse Emergency
DX: Z79.891 Long term (current) use of opiate analgesic (principal); M47.816 Spondylosis without myelopathy or radiculopathy, lumbar region; G89.4 Chronic pain syndrome; M25.511 Pain in right shoulder; M50.30 Other cervical disc degeneration, unspecified cervical region
CPT/HCPCS: 99214; G2211

== ENCOUNTER → 2024-05-25 08:21 | Outpatient (BNVA) | payer MEDICARE, SELFPAY | PROVIDERS: PCP Student in an Organized Health Care Education/Training Program; Visit Provider Registered Nurse Emergency | DX: Z51.81 Encounter for therapeutic drug level monitoring (principal); M47.816 Spondylosis without myelopathy or radiculopathy, lumbar region; M25.511 Pain in right shoulder; M50.30 Other cervical disc degeneration, unspecified cervical region; G89.4 Chronic pain syndrome; Z79.891 Long term (current) use of opiate analgesic | CPT/HCPCS: 99212 ==

== ENCOUNTER 2024-06-20 09:13 | Outpatient (AMB) | payer MEDICARE, SELFPAY ==
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
[2024-06-20 09:36] VITALS: BP 127/74; PULSE 101; RESP 15; O2SAT 94; BMI 25.8
== END 2024-06-20 10:00 | disposition home or self-care (01) ==
PROVIDERS: Visit Provider Internal Medicine
DX: Z79.891 Long term (current) use of opiate analgesic (principal); G89.4 Chronic pain syndrome
CPT/HCPCS: 99213

== ENCOUNTER → 2024-06-20 09:13 | Outpatient (BNVA) | payer MEDICARE, SELFPAY | PROVIDERS: Visit Provider Internal Medicine | DX: Z51.81 Encounter for therapeutic drug level monitoring (principal); Z79.891 Long term (current) use of opiate analgesic; G89.4 Chronic pain syndrome | CPT/HCPCS: 99212 ==

== ENCOUNTER 2024-07-20 09:01 | Outpatient (AMB) | payer MEDICARE, SELFPAY ==
[2024-07-20 09:12] VITALS: BP 132/78; PULSE 81; RESP 16; O2SAT 95; BMI 25.8
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
== END 2024-07-20 09:23 | disposition home or self-care (01) ==
PROVIDERS: Visit Provider Internal Medicine
DX: Z79.891 Long term (current) use of opiate analgesic (principal)
CPT/HCPCS: 99213

== ENCOUNTER → 2024-07-20 09:01 | Outpatient (BNVA) | payer MEDICARE, SELFPAY | PROVIDERS: Visit Provider Internal Medicine | DX: Z79.891 Long term (current) use of opiate analgesic (principal) | CPT/HCPCS: 99212 ==

== ENCOUNTER 2024-08-20 08:07 | Outpatient (AMB) | payer MEDICARE, SELFPAY ==
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
[2024-08-20 08:30] VITALS: BP 152/78; PULSE 83; O2SAT 97; BMI 26.1
== END 2024-08-20 08:43 | disposition home or self-care (01) ==
PROVIDERS: Visit Provider Nurse Practitioner Family
DX: Z79.891 Long term (current) use of opiate analgesic (principal); M47.816 Spondylosis without myelopathy or radiculopathy, lumbar region; G89.4 Chronic pain syndrome; M50.30 Other cervical disc degeneration, unspecified cervical region
CPT/HCPCS: 99214; G2211

== ENCOUNTER → 2024-08-20 08:07 | Outpatient (BNVA) | payer MEDICARE, SELFPAY | PROVIDERS: Visit Provider Nurse Practitioner Family | DX: Z51.81 Encounter for therapeutic drug level monitoring (principal); M47.816 Spondylosis without myelopathy or radiculopathy, lumbar region; M50.30 Other cervical disc degeneration, unspecified cervical region; G89.4 Chronic pain syndrome; Z79.891 Long term (current) use of opiate analgesic | CPT/HCPCS: 99212 ==

== ENCOUNTER → 2024-09-21 09:36 | Outpatient (BNVA) | payer MEDICARE, SELFPAY | PROVIDERS: Visit Provider Nurse Practitioner Family | DX: Z51.81 Encounter for therapeutic drug level monitoring (principal); M47.816 Spondylosis without myelopathy or radiculopathy, lumbar region; M50.30 Other cervical disc degeneration, unspecified cervical region; G89.4 Chronic pain syndrome; Z79.891 Long term (current) use of opiate analgesic | CPT/HCPCS: 99212 ==

== ENCOUNTER 2024-10-26 08:07 | Outpatient (AMB) | payer MEDICARE, SELFPAY ==
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
--- OUTSIDE RECORDS SUMMARY | 2024-10-26 08:15 | XMS_ITS | Encounter Summary ---
Author Organization [facility] Address [address] [place] [address] Care Team Providers Care Field Services Analyst Name Role Phone Pcp, No Primary Care Provider Unavailabl e Encounter Details Date Type Department Care Team (Latest Contact Info) Description 10/19/2024 Travel Social History Tobacco Use Types Packs/Day Years Used Date Smoking Tobacco: Never Passive Smoke Exposure: Never Smokeless Tobacco: Never Sex and Gender Information Value Date Recorded Sex Assigned at Female 05/01/2023 3:18 PM EDT Gender Identity Female 05/01/2023 3:18 PM EDT Sexual Orientation Choose not to disclose 2022 3:18 PM EDT documented as of this encounter Plan of Treatment Not on file documented as of this encounter Visit Diagnoses Not on filedocumented in this encounter Care Teams Field Services Analyst Relationship Specialty Start Date End Date Pcp, No PCP - General General Medicine 09/27/24 documented as of this encounter
--- OUTSIDE RECORDS SUMMARY | 2024-10-26 08:15 | XMS_ITS | Clinical Summary ---
Author Organization [facility] Address [address] [place] [address] Care Team Providers Care Fashion Design Professor Name Role Phone Jan Palomino DO Primary Care Provider [phone] Allergies Active Allergy Reactions Criticality Noted Date Comments Amoxicillin Nausea Only Low 05/24/2023 Other 05/18/2023 Per pt, all antidepressants cause pt to develop sores Penicillins Shortness Of Breath High 05/24/2023 Tolerated cephalosporin 05/24/23 Sulfa Antibiotics Anaphylaxis High 05/18/2023 Medications Medication Sig Dispensed Refills Start Date End Date Status valACYclovir (VALTREX) 500 MG tablet Take 1 tablet (500 mg total) by mouth as needed. 0 Active oxyCODONE-acetaminop hen (PERCOCET) 5-325 MG per tablet Take 1 tablet by mouth 4 (four) times a day. 0 Active dilTIAZem (CARDIZEM CD) 180 MG 24 hr capsule Take 1 capsule (180 mg total) by mouth daily. 0 Active acetaminophen (TYLENOL) 325 MG tablet Take 3 tablets (975 mg total) by mouth every 6 (six) hours as needed for pain. 30 tablet 0 05/24/2023 Active oxyCODONE (ROXICODONE) 5 MG immediate release tablet Take 1 tablet (5 mg total) by mouth every 4 (four) hours as needed. 5 tablet 0 05/24/2023 Active polyethylene glycol (MIRALAX) 17 g packet Take 17 g by mouth daily. 14 each 0 05/24/2023 Active lidocaine (XYLOCAINE) 2 % jelly Apply topically as needed. 30 mL 2 05/24/2023 Active ciprofloxacin (CIPRO) 250 MG tablet Take 1 tablet (250 mg total) by mouth 2 (two) times a day. 10 tablet 0 06/02/2023 Active phenazopyridine (PYRIDIUM) 200 MG tablet Take 1 tablet (200 mg total) by mouth 3 (three) times a day as needed for pain. 10 tablet 0 06/02/2023 Active Active Problems Problem Noted Date Diagnosed Date Uterovaginal prolapse, unspecified 03/30/2023 Overview: Added automatically from request for surgery [id number] Vaginal atrophy 03/30/2023 Overview: Added automatically from request for surgery [id number] Social History Tobacco Use Types Packs/Day Years Used Date Smoking Tobacco: Former Cigarettes Smokeless Tobacco: Never Tobacco Cessation:Counseling Given: Not Answered Alcohol Use Standard Drinks/Week Comments Not Currently 0 (1 standard drink = 0.6 oz pur e alcohol) Sex and Gender Information Value Date Recorded Sex Assigned at Female 05/24/2023 5:09 AM EDT Gender Identity Not on file Sexual Orientation Not on file Job Start Date Occupation Industry Not on file Not on file Not on file Last Filed Vital Signs Vital Sign Reading Time Taken Comments Blood Pressure 160/84 09/29/2023 8:51 AM EST Pulse 87 09/29/2023 8:51 AM EST Temperature 36.8 ??C (98.2 ??F) 06/30/2023 11:14 AM E DT Respiratory Rate 12 05/24/2023 2:15 PM EDT Oxygen Saturation 95% 05/24/2023 2:58 PM EDT Inhaled Oxygen Concentration - - Weight 73.5 kg (162 lb) 09/29/2023 8:51 AM EST Height 167.6 cm (5' 6 ) 05/18/2023 1:59 PM EDT Body Mass Index 26.15 05/18/2023 1:59 PM EDT Plan of Treatment Health Maintenance Due Date Last Done Comments Hepatitis C Screening 1954 Depression Screening 1966 Preventative Health Evaluation 1972 Colon Cancer Screening (Colonoscopy) 11/12/1999 Breast Cancer Screening (Mammogram) 2004 Fall Risk Assessment 11/12/2019 Osteoporosis Screening (DEXA Scan) 11/12/2019 DTap / Tdap / Td (2 - Td or Tdap) 10/25/2022 10/25/2012 COVID-19 Vaccine ( season) 2024 01/06/2022, 11/25/2020, 11/04/2020 Influenza Vaccine (#1) 2024 , 05/13/2020, 05/02/2019, Additional history exists RSV Adult > 60+ Yrs or (1 - 1-dose 75+ series) 2029 Shingrix-Zoster Vaccine Completed 12/23/2020, 05/01 Pneumococcal Vaccine Completed 07/12/2023, 05/13/20 20 Hepatitis B Vaccines Aged Out No long er eligible based on patient's age to complete this topic RSV Ped < 20 months Aged Out No longe r eligible based on patient's age to complete this topic Medical Devices Implanted Type Area Head Of English Device Identifier Shelf Expiration Date Model / Serial / Lot System Gynecare Tvt Exact 3mm Troc Retro Pubic Urnry [facility] [id number] - [id number] Implanted:Qty: 1 on 05/24/2023 by Beti Greenwood MD at [facility] and [facility] N/A: Vagina [facility] [employer] 12/27/2023 TVTRL / / [id number] Care Teams Fashion Design Professor Relationship Specialty Start Date End Date Jan Palomino DO [address] [facility] [place] [address] PCP - General Family Medicine 05/18/23
--- OUTSIDE RECORDS SUMMARY | 2024-10-26 08:15 | XMS_ITS | Encounter Summary ---
Author Organization [facility] Address [address] [place] [address] Care Team Providers Care Kindergarten Prep Teacher Name Role Phone Pcp, No Primary Care Provider Unavailabl e Encounter Details Date Type Department Care Team (Latest Contact Info) Description 09/27/2024 Travel Social History Tobacco Use Types Packs/Day [...] on filedocumented in this encounter Care Teams Kindergarten Prep Teacher Relationship Specialty Start Date End Date Pcp, No PCP - General General Medicine 09/27/24 documented as of this encounter
--- OUTSIDE RECORDS SUMMARY | 2024-10-26 08:15 | XMS_ITS | Clinical Summary ---
Author Organization [facility] Address [address] [place] [address] Care Team Providers Care Engraving Supervisor Name Role Phone Pcp, No Primary Care Provider Unavailabl e Allergies Active Allergy Reactions Criticality Noted Date Comments Ciprofloxacin Unknown/Patient and Family Unable to Define Medium 06/07/2023 Egg Solids, Whole Rash/Dermatitis Low 11/23/2005 Rash/Dermatitis Gabapentin Hives Medium 04/14/2018 Hives/Urticaria Methocarbamol Other (See Comments) Low 11/23/2005 Runny Nose/Rhinitis Penicillins Nausea And Vomiting,Nausea Only,Swelling,Shortne ss Of Breath High 11/23/2005 Tolerated cephalosporin 05/24/23 Numbness, tingling or swelling of the lips, tongue or mouth Sertraline Rash/Dermatitis Low 03/17/2017 Rash/Dermatitis Sulfa Antibiotics Anaphylaxis High 05/01/2023 Sulindac Unknown/Patient and Family Unable to Define Medium 06/09/2011 Medications Medication Sig Dispensed Refills Start Date End Date Status valACYclovir (VALTREX) 500 MG tablet Take 500 mg by mouth daily. 04/19/2023 Active oxyCODONE-acetamin ophen (PERCOCET) 5-325 mg per tablet TAKE 1 TABLET BY MOUTH UP TO 5 TIMES DAILY NEEDED FOR SEVERE PAIN 04/18/2023 Active diltiazem (CARDIZEM CD) 180 MG 24 hr capsule Take 1 tablet by mouth daily. 06/11/2024 Active phenazopyridine (PYRIDIUM) 200 MG tabletIndications: Acute cystitis without hematuria Take 1 tablet (200 mg total) by mouth 3 (three) times a day as needed for bladder spasms. 6 tablet 09/27/2024 Active saccharomyces boulardii (FLORASTOR) 250 MG capsuleIndications :Bacterial urinary tract infection Take 1 capsule (250 mg total) by mouth 2 (two) times a day. 60 capsule 10/11/2024 Active cephalexin (KEFLEX) 500 MG capsuleIndications :Urinary tract infection symptoms Take 1 capsule (500 mg total) by mouth 3 (three) times a day. 21 capsule 10/19/2024 10/26/2024 Active nitrofurantoin monohydrate (MACROBID) 100 MG capsuleIndications :Acute cystitis without hematuria Take 1 capsule (100 mg total) by mouth 2 (two) times a day with meals. Dispense generic equivalent of MACROBID 10 capsule 09/27/2024 10/02/2024 amoxicillin-clavul anate (AUGMENTIN) 875-125 MG per tabletIndications: Bacterial urinary tract infection Take 1 tablet by mouth 2 (two) times a day. 14 tablet 10/11/2024 10/18/2024 amoxicillin-clavul anate (AUGMENTIN) 875-125 MG per tabletIndications: Bacterial urinary tract infection Take 1 tablet by mouth 2 (two) times a day. 14 tablet 10/11/2024 10/18/2024 Active Problems Problem Noted Date Diagnosed Date Lumbar radiculitis 10/19/2024 Dysuria-frequency syndrome 02/12/2024 Anxiety 11/17/2023 Uterovaginal prolapse, unspecified 03/30/2023 Overview (10/19/2024): Added automatically from request for surgery [id number] Vaginal atrophy 03/30/2023 Overview (10/19/2024): Added automatically from request for surgery [id number] Mitral valve prolapse 02/25/2022 Overview (10/19/2024): Last Assessment & Plan: Patient reports that she has history of mitral valve prolapse however her most recent echocardiogram did not show any structural abnormalities. Cardiac function is normal. SVT (supraventricular tachycardia) 02/23/2022 Overview (10/19/2024): Last Assessment & Plan: Patient has history of SVT with occasional ongoing palpitations requiring vagal maneuvers to cease the palpitations. She was unable to tolerate verapamil or metoprolol in the past. The frequency of her palpitations have not changed. The intensity of her palpitations have not changed. Nonetheless we will trial diltiazem 180 mg daily in efforts to better manage her palpitations as well as improve her blood pressure control. Patient will let me know if she has any adverse symptoms. Hyperlipidemia 09/18/2020 Overview (10/19/2024): Last Assessment & Plan: Patient's ASCVD risk is 8.7%. Her last LDL cholesterol was 134. She would have an increased benefit from being on statin therapy. She will continue to follow with her primary care provider. She will continue to work on diet and exercise. Depression 03/11/2017 Plantar fasciitis 07/14/2011 Overview (10/19/2024): Dr. Jimenez- steroid injection, stretching Diverticulitis of colon without hemorrhage 04/07 DDD (degenerative disc disease), cervical 2005 Overview (10/19/2024): excision/fusion c5/6- Dr. Contreras Herpes simplex type II infection 11/17/1995 Overview (10/19/2024): Confirmed by culture 05/22/0711/09 - valacyclovir 500mg qd for suppression Encounters Date Type Department Care Team Description 10/19/2024 8:15 AM EST Office Visit [facility] [address] [phone] Yonatan Jasmine MD Anderson, Kelsey E, SAMI-C Urinary tract infection symptoms 10/19/2024 Travel 10/11/2024 2:35 PM EST Office Visit [facility] [address] [phone] Uriah Holland MD Wiggins, Miriam K, PA-C Bacterial urinary tract infection (Primary Dx); Increased urinary frequency 10/11/2024 Refill [facility] [address] [phone] Yaa Carbajal PA-C Bacterial urinary tract infection 10/11/2024 Travel 09/27/2024 9:15 AM EST Office Visit [facility] [address] [phone] Uriah Holland MD Lapierre, Kathryn, APRN Frequency of urination (Primary Dx); Acute cystitis without hematuria 09/27/2024 Travel from Last 3 Months Social History Tobacco Use Types Packs/Day Years Used Date Smoking Tobacco: Never Passive Smoke Exposure: Never Smokeless Tobacco: Never Tobacco Cessation:Counseling Given: Not Answered Sex and Gender Information Value Date Recorded Sex Assigned at Female 05/01/2023 3:18 PM EDT Gender Identity Female 05/01/2023 3:18 PM EDT Sexual Orientation Choose not to disclose 2022 3:18 PM EDT Last Filed Vital Signs Vital Sign Reading Time Taken Comments Blood Pressure 126/81 10/19/2024 8:43 AM EST Pulse 73 10/19/2024 8:43 AM EST Temperature 36.6 ??C (97.9 ??F) 10/19/2024 8:43 AM ES T Respiratory Rate 14 10/19/2024 8:43 AM EST Oxygen Saturation 96% 10/19/2024 8:43 AM EST Inhaled Oxygen Concentration - - Weight 68 kg (150 lb) 10/19/2024 8:43 AM EST Height 167.6 cm (5' 6 ) 10/19/2024 8:43 AM EST Body Mass Index 24.21 10/19/2024 8:43 AM EST Plan of Treatment Health Maintenance Due Date Last Done Comments Hepatitis C Virus Screening 1955 DTaP/Tdap/Td Vaccines (1 - Tdap) 1973 Pneumococcal Vaccines 50+ (1 of 2 - PCV) 1973 Mammogram 1994 Colonoscopy 11/12/1999 Zoster (Shingles) Vaccine (1 of 2) 2004 DXA Bone Density (Females,Ages 65 and older) 11/12/2019 Influenza Vaccine 03/29/2024 04/14/2023, , 04/29/2021, Additional history exists COVID-19 Vaccine ( season) 2024 04/14/2023, 01/06/2022, 11/25/2020, Additional history exists RSV Vaccine 60 years and older and Patients (1 - 1-dose 75+ series) 2029 Hepatitis B Vaccines Aged Out No long er eligible based on patient's age to complete this topic Procedures Procedure Name Priority Date/Time Associated Diagnosis Comments URINE CULTURE Routine 10/19/2024 8:55 AM EST Urinary tract infection symptoms POCT URINALYSIS DIPSTICK, AUTOMATED Routine 10/19/2024 8:53 AM EST Urinary tract infection symptoms POCT URINALYSIS DIPSTICK, AUTOMATED Routine 10/11/2024 3:03 PM EST Increased urinary frequency URINE CULTURE Routine 10/11/2024 3:01 PM EST Bacterial urinary tract infection URINE CULTURE Routine 09/27/2024 9:46 AM EST Frequency of urination POCT URINALYSIS DIPSTICK, AUTOMATED Routine 09/27/2024 9:45 AM EST Frequency of urination from Last 3 Months Results * Urine Culture (10/19/2024 8:55 AM EST) Only the most recent of3 resultswithin the time period is included. Culture SEE NOTE [employer] Comment: ??CULTURE, URINE, ROUTINE ?Micro Number: ?[id number] ??Test Status: ? Final ??Specimen Source: ?? Urine ??Specimen Quality: ??Adequate ??Result: ?No Growth Microbiology 10/19/2024 8:55 AM EST 10/20/2024 11:52 PM EST Sandy Lorenzana PA-C LAB AMB MICRO ORD ERABLES Performing Organization Address City/State/[facility] Co de Phone Number [employer] [address] [place] [phone] * (ABNORMAL) POCT Urinalysis Dipstick, Automated (10/19/2024 8:53 AM EST) Only the most recent of3 resultswithin the time period is included. Source, UA Clean Catch Color, UA Yellow Yellow & Clear, Yellow Clarity, UA Clear Clear Glucose, UA Negative Negative Bilirubin, UA Negative Negative Ketones, UA Negative Negative Spec Grav, UA 1.015 1.005, 1.010, 1.015, 1.020, 1.025 Blood, UA Negative Negative pH, UA 6.0 5.0, 5.5, 6.0, 6.5, 7.0, 7.5, 8.0 Protein, UA Negative Negative Urobilinogen, UA 0.2 0.2, 1.0 Nitrite, UA Negative Negative Leukocyte Esterase, UA Small (+)(A) Negative Lot Number [id number] Inspector Automatic Typewriter Pass Pass Urine 10/19/2024 8:53 AM EST Sandy Lorenzana PA-C POINT OF CARE ATTILA T ORDERABLES from Last 3 Months Care Teams Engraving Supervisor Relationship Specialty Start Date End Date Pcp, No PCP - General General Medicine 09/27/24
--- OUTSIDE RECORDS SUMMARY | 2024-10-26 08:15 | XMS_ITS | Clinical Summary ---
Author Organization [facility] Address [address] [place] [address] Phone Care Team Providers Care Rare/Endangered Species Specialist Name Role Phone Unavailable Primary Care Provider Unavailabl e Allergies Active Allergy Reactions Criticality Noted Date Comments Amoxicillin Nausea Only 05/08/2024 Numbness, tingling or swelling of the lips, tongue or mouth Ciprofloxacin 06/07/2023 Egg Rash 11/23/2005 Rash/Dermatitis Gabapentin Hives 04/14/2018 Hives/Urticaria Methocarbamol Runny nose 11/23/2005 Runny Nose/Rhinitis Other 05/08/2024 Per pt, all antidepressants cause pt to develop sores Penicillins Nausea And Vomiting,Nausea Only,Shortness of breath High 11/23/2005 Tolerated cephalosporin 05/24/23 Sertraline Rash 03/17/2017 Rash/Dermatitis Sulfa (Sulfonamide Antibiotics) Anaphylaxis High 05/08/2024 Sulfacetamide Sodium Numbness 11/23/2005 Numbness, tingling or swelling of the lips, tongue or mouth Sulindac 06/09/2011 Medications acetaminophen (TYLENOL) 325 mg tablet Take 3 tablets (975 mg total) by mouth every 6 hours as needed. 3 Active ciprofloxacin (CIPRO) 250 mg tablet Take 1 tablet (250 mg total) by mouth 2 (two) times a day. 3 Active ibuprofen (ADVIL,MOTRIN) 600 mg tablet 3 Active lidocaine-hyalur hn-awmy-fphd (Regenecare LOZANO) 2 % gel Apply topically as needed. 3 Active oxyCODONE (ROXICODONE) 5 mg immediate release tablet Take 1 tablet (5 mg total) by mouth every 4 (four) hours as needed. 3 Active oxyCODONE-acetam inophen (PERCOCET) 5-325 mg per tablet Take 1 tablet by mouth 4 (four) times a day. Max Daily Amount: 4 tablets Active phenazopyridine (PYRIDIUM) 200 mg tablet Take 1 tablet (200 mg total) by mouth 3 times daily as needed. 3 Active polyethylene glycol (MIRALAX) 17 gram packet Take 17 g by mouth daily. 3 Active valACYclovir (VALTREX) 500 mg tablet Take 1 tablet (500 mg total) by mouth 1 (one) time each day. 3 Active estradioL (ESTRACE) 0.01 % (0.1 mg/gram) vaginal cream Apply a pea-sized amount of cream with your finger into the vagina daily at bedtime for 2 weeks, then two times a week at night. 3 Active LACTOBACILLUS ACIDOPHILUS ORAL Take by mouth daily. Active mirtazapine (REMERON) 7.5 mg tablet Take 2 Tablets by mouth at bedtime as needed for Other (sleep). 4 Active oxyCODONE-acetam inophen (PERCOCET) 10-325 mg per tablet Take 1 tablet by mouth 4 times daily as needed for Pain for up to 28 days. 1 Active dilTIAZem CD (CARDIZEM CD) 180 mg 24 hr capsule TAKE 1 CAPSULE BY MOUTH EVERY DAY 90 capsule 1 5 Active Active Problems Problem Noted Date Diagnosed Date Anxiety 11/17/2023 Uterovaginal prolapse, unspecified 03/30/2023 Overview (05/08/2024): Added automatically from request for surgery [id number] Vaginal atrophy 03/30/2023 Overview (05/08/2024): Added automatically from request for surgery [id number] Mitral valve prolapse 02/25/2022 Overview (05/29/2024): Last Assessment & Plan: Patient reports that she has history of mitral valve prolapse however her most recent echocardiogram did not show any structural abnormalities. Cardiac function is normal. SVT (supraventricular tachycardia) 02/23/2022 Overview (05/29/2024): Last Assessment & Plan: Patient has history [...] has any adverse symptoms. Hyperlipidemia 09/18/2020 Overview (05/29/2024): Last Assessment & Plan: Patient's ASCVD risk is 8.7%. Her last LDL cholesterol was 134. She would have an increased benefit from being on statin therapy. She will continue to follow with her primary care provider. She will continue to work on diet and exercise. Colon, diverticulosis 04/18/2017 Depression 03/11/2017 Plantar fasciitis 07/14/2011 Overview (05/29/2024): Dr. Jimenez- steroid injection, stretching De Quervain's tenosynovitis 12/13/2008 Chronic pain syndrome 02/22/2007 Overview (05/29/2024): 02/06- Mother feels that she abuses Percocet, takes them with alcohol - she's in trouble For procedures, requires high dose of sedation, and cannot use propofol because of egg allergy Diverticulitis of colon without hemorrhage 04/07 Degeneration of cervical intervertebral disc 02/2006 Overview (05/29/2024): excision/fusion c5/6- Dr. Contreras Depression with anxiety 02/02/2006 Overview (05/29/2024): Dr. Batista - q3mt - stopped in 2011 - Samuel Cornelius MD took over prescriptions Lumbago 02/02/2006 Overview (05/29/2024): Dr. Contreras, Dr. Saunders, Dr. Jackson Neurontin, Percocet - on controlled substances contract 12/10 - pending bilateral transforaminal epidural steroid injections, left L4 and right L3 04/11 - Percocet increased to QID 10/13 - Gabapentin to TID Rosacea 02/02/2006 Enchondroma of femur 08/19/2003 Overview (05/29/2024): Dr. Maykel Ramírez - [facility] 2003 MRI and bone scan Herpes simplex type II infection 11/17/1995 Overview (05/29/2024): Confirmed by culture 05/22/0711/09 - valacyclovir 500mg qd for suppression Immunizations Name Administration Dates Next Due COVID-19 (Moderna/Spikevax) 12yo and older 04/14/2023 Influenza Quadravalent, MDCK , 0.5ml, preservative free (Flucelvax) 6mo and older 05/02/2019 Influenza trivalent, 0.5mL ( Fluzone High-dose) 65yo and older 04/29/2021,05/13/2020 Influenza trivalent, with pr eservative (Fluzone; Afluria) 6mo and older 06/19/2018,04/19/2014,06/26/2013,05/24,06/09/2011 Influenza, Unspecified 04/14/2023,05/10/2022 Moderna Covid-19 Bivalent, O riginal + Ba.1 (Non-US Tradename Spikevax Bivalent) 05/07/2022 Pneumococcal conjugate 20 va lent (Prevnar 20, PCV 20) 2mo and older 07/12/2023 Pneumococcal polysaccharide 23 valent (Pneumovax 23) 2yo and older 05/13/2020 Td Tetanus diptheria (Tdvax) 7yo and older 07/12/2023,12/27/2002 Tdap Tetanus diptheria acell ular pertussis (Boostrix; Adacel) 7yo and older 10/25/2012 Zoster Live 05/02/2015 Zoster recombinant (Shingrix ) 19yo and older 12/23/2020,05/01/2015 Surgical History Surgery Date Site/Laterality Comments TUBAL LIGATION PROCEDURE:TUBAL LIGATION SHOULDER SURGERY Bilateral PROCEDURE:SHOULDER SURGERY;COMMENT:Rotator cuff repair HAND SURGERY Left PROCEDURE:HAND SURGERY;COMMENT:Carpal tunnel release COLONOSCOPY PROCEDURE:COLONOSCOPY UPPER GASTROINTESTINAL ENDOSCOPY PROCEDURE:UPPER GASTROINTESTINAL ENDOSCOPY RHINOPLASTY PROCEDURE:RHINOPLASTY;COMME NT:x2 LAPAROSCOPIC HYSTERECTOMY 05/24/2023 N/A PROCEDURE:LAPAROSCOPIC HYSTERECTOMY;COMMENT:Proced ure: LAPAROSCOPIC ASSISTED VAGINAL HYSTERECTOMY, BILATERAL SALPINGECTOMY; Surgeon: Beti Greenwood MD; Location: [facility]PERATING [facility]; Service: Gynecology; Laterality: N/A; VAGINAL PROLAPSE REPAIR 05/24/2023 N/A PROCEDURE:VAGINAL PROLAPSE REPAIR;COMMENT:Procedure: VAGINAL COLPOPEXY (INTRAPERITONEAL APPROACH); Surgeon: Beti Greenwood MD; Location: [facility]IN OPERATING ROOM; Service: Gynecology; Laterality: N/A; COLPORRHAPHY 05/24/2023 N/A PROCEDURE:COLPORRHAPHY;COMM ENT:Procedure: POSTERIOR REPAIR; Surgeon: Beti Greenwood MD; Location: [facility]PERATING [facility]; Service: Gynecology; Laterality: N/A; CYSTOSCOPY 05/24/2023 N/A PROCEDURE:CYSTOSCOPY;COMMEN T:Procedure: CYSTOSCOPY; Surgeon: Beti Greenwood MD; Location: [facility]IN [facility]PERATING RO[facility]; Service: Gynecology; Laterality: N/A; OTHER SURGICAL HISTORY 05/24/2023 N/A PROCEDURE:TVT / TOT UTERINE SUSPENSION;COMMENT:Procedur e: PLACEMENT OF MESH MID-URETHRAL SLING; Surgeon: Beti Greenwood MD; Location: [facility]IN [facility]PERATING RO[facility]; Service: Gynecology; Laterality: N/A; OTHER SURGICAL HISTORY 04/22/05 PROCEDURE: ND LAMOPLASTY CERVICAL DCMPRN CORD 2/> SEG RCNSTJ; COMMENT: Dr. Contreras OTHER SURGICAL HISTORY PROCEDURE: ND LIG/TRNSXJ FLP TUBE ABDL/VAG APPR UNI/BI TONSILLECTOMY ADENOIDECTOMY, BILATERAL MYRINGOTOMY AND TUBES PROCEDURE: ND TONSILLECTOMY & ADENOIDECTOMY <AGE 11 COLONOSCOPY 07/16/11 Meeta PROCEDURE: HISTORICAL COLONOSCOPY; COMMENT: tics; repeat in five yrs CARPAL TUNNEL RELEASE 2/10/16 Left PROCEDURE: HISTORICAL CARPAL TUNNEL REL; COMMENT: Dr. Negrete NOSE SURGERY PROCEDURE: ND UNLISTED PROCEDURE NOSE; COMMENT: rhinoplasty Medical History Medical History Date Comments Diverticulosis DX:Diverticulosi s Hypertension DX:Hypertension Urinary tract infection DX:Urina ry tract infection Anxiety DX:Anxiety Arthritis DX:Arthritis;COM MENT:Reported by pt Fibromyalgia DX:Fibromyalgia; COMMENT:Reported by pt Heart disease, unspecified DX:He art disease, unspecified; COMMENT: mitrial valve prolapse Generalized osteoarthrosis, unspecified site DX:Generalized osteoarthrosi s, unspecified site; COMMENT: arthritis and fibromyalgia Depression with anxiety 02/02/2006 DX:Depre ssion with anxiety Tobacco abuse 12/13/2008 DX:Tobacco abuse ; COMMENT: Quit Aug, 2011. Left wrist pain 06/18/2015 DX:Left wrist pa in History of other specified c onditions presenting hazards to health DX:History of other speci fied conditions presenting hazards to health; COMMENT: basal cell on face Family History Medical History Relation Name Comments Coronary artery disease Brother 1 No Known Problems Brother 2 No Known Problems Brother 3 No Known Problems Daughter Arthritis Father Hypertension Father Other: macular degeneration Father Parkinson's Disease Father No Known Problems Maternal Grandfather Asthma Maternal Grandmother Asthma Mother Depression Mother depression Diabetes Mother Glaucoma Mother Hypertension Mother No Known Problems Other No Known Problems Paternal Grandfather No Known Problems Paternal Grandmother No Known Problems Sister 1 No Known Problems Sister 2 No Known Problems Sister 3 No Known Problems Son Breast cancer Neg Hx Relation Name Status Comments Brother 1 Brother 2 Alive Brother 3 Alive Daughter Alive Father Alive Maternal Grandfather Maternal Grandmother Mother Other Paternal Grandfather Paternal Grandmother Sister 1 Alive Sister 2 Alive Sister 3 Son Alive Social History Tobacco Use Types Packs/Day Years Used Date Smoking Tobacco: Former Cigarettes 0 10/27/2005 - 09/29/2019 Smokeless Tobacco: Never Alcohol Use Standard Drinks/Week Comments No 0 (1 standard drink = 0.6 oz pur e alcohol) Comments Unknown Sex and Gender Information Value Date Recorded Sex Assigned at Not on file Legal Sex Female 2:44 PM EST Gender Identity Not on file Sexual Orientation Not on file Obstetrics History Last Filed Vital Signs Vital Sign Reading Time Taken Comments Blood Pressure 140/90 02/28/2024 9:47 AM EDT Pulse 94 02/28/2024 9:47 AM EDT Temperature - - Respiratory Rate - - Oxygen Saturation - - Inhaled Oxygen Concentration - - Weight 72.6 kg (160 lb) 06/01/2024 9:41 AM EDT Height 167.6 cm (5' 6 ) 06/01/2024 9:41 AM EDT Body Mass Index 25.82 06/01/2024 9:41 AM EDT Plan of Treatment Upcoming Encounters Date Type Department Care Team (Late st Contact Info) Description 10/26/2024 2:30 PM EST Office Visit Internal Medicine - [place] [address] [place] [address] Chyna Reina MD [address] [place] [address] 10/30/2024 10:20 AM EST Office Visit [facility] - [address] [place] [address] Chapito Castle MD [address] [place] [address] [address] [place] [address] 11/09/2024 9:45 AM EDT Office Visit Urogynecology - [place] [address] [place] [id number] Beti Greenwood MD [address] [place] [address] Health Maintenance Due Date Last Done Comments Breast Cancer Screening 02/27/2021 02/27/2019, 03/30 Medicare Annual Wellness Visit 08/07/2022 Osteoporosis Screening (Bone Density Screening) 08/07/2022 Social Influencers of Health Screening 08/07/2022 COVID-19 Vaccine ( season) 2024 04/14/2023, 05/07/2022, 01/06/2022, Additional history exists Depression Screening 07/12/2024 07/12/2023 Falls Risk Assessment 07/12/2024 07/12/2023 Cholesterol Screening (Lipid Panel) 09/09/2026 09/09/2021 Colorectal Cancer Screening: Colonoscopy 05/26/2027 05/26/2022 RSV Immunization Patients 60+ Years Old (1 - 1-dose 75+ series) 2029 DTaP,Tdap,and Td Vaccines (4 - Td or Tdap) 07/12/2033 07/12/2023, 10/25/2012, 12/27/2002 Hepatitis C Screening Completed 08/02/2016 Zoster Vaccines Completed 12/23/2020, 11/2014, 05/01/2015 Pneumococcal Vaccine: 50+ Years Completed 07/12/2023, 05/13/2020 Influenza Vaccine Completed 04/16/2024, , 05/10/2022, Additional history exists HIB Vaccines Aged Out No longer eligi ble based on patient's age to complete this topic HPV Vaccines Aged Out No longer eligi ble based on patient's age to complete this topic Hepatitis A Vaccines Aged Out No long er eligible based on patient's age to complete this topic Hepatitis B Vaccines Aged Out No long er eligible based on patient's age to complete this topic IPV Vaccines Aged Out No longer eligi ble based on patient's age to complete this topic MMR Vaccines Aged Out No longer eligi ble based on patient's age to complete this topic Meningococcal ACWY Vaccine Aged Out N o longer eligible based on patient's age to complete this topic Meningococcal B Vacine Aged Out No lo nger eligible based on patient's age to complete this topic RSV Immunization Patients Under 20 months Aged Out No longer eligible based on patient's age to complete this topic Varicella Vaccines Aged Out No longer eligible based on patient's age to complete this topic Medical Devices Implanted Type Area Clinical Engineering Manager Device Identifier Shelf Expiration Date Model / Serial / Lot System Gynecare Tvt Exact 3mm Troc Retro Pubic Urnry Incont [facility] [id number] Implanted:Qty: 1 on 05/24/2023 by Beti Greenwood MD N/A: Vagina [facility] [employer] 12/27/2023 TVTRL / / [id number] Procedures Procedure Name Priority Date/Time Associated Diagnosis Comments DEPRESSION SCREENING Routine 07/12/2023 FALLS RISK ASSESSMENT Routine 07/12/2023 COLONOSCOPY Routine 05/26/2022 LIPID PANEL Routine 09/09/2021 SCR MAMMO BI INCL CAD Routine 02/27/2019 8:15 AM EDT Encounter for screening mammogram for malignant neoplasm of breast HEPATITIS C SCREENING Routine 08/02/2016 from Last 3 Months or Most Recently Relevant to Health Maintenance Results * Falls Risk Assessment (07/12/2023) Pathologist [facility] Falls Risk Assessment abstracted [facility] Provider HEALTH MAINTENANCE Final Result * Depression Screening (07/12/2023) Depression Screening abstracted [facility] Provider HEALTH MAINTENANCE Final Result * Colonoscopy (05/26/2022) Pathologist [facility] Colonoscopy no interpretation , abstracted Anatomical Region Laterality Modality Other [facility] Provider HEALTH [facility] Final Result * (ABNORMAL) Lipid panel (09/09/2021) Pathologist [facility] LDL/HDL Ratio 3 0 - 4 Triglycerides 131 0 - 150 mg/dL Cholesterol 231(A) 0 - 200 mg/dL HDL 71 >=40 mg/dL LDL Cholesterol 134(A) 0 - 100 mg/dL Blood Venous blood specimen / Unknown [facility] Provider LAB BLOOD ORDERABLES Rae l Result * SCR MAMMO BI INCL CAD (02/27/2019 8:15 AM EDT) Anatomical Region Laterality Modality Radiographic Gema ging 01/01/2019 8:23 AM EDT Narrative 02/27/2019 10:32 AM EDT This is a summary report. The complete report is available in the patient's medical record. If you cannot access the medical record, please contact the sending organization for a detailed fax or copy. Full field digital screening mammography, reviewed with CAD and compared to previous. The breast tissue is heterogeneously dense, limiting sensitivity. No suspicious mass, architectural distortion or suspicious calcifications are identified. IMPRESSION: : Dense breast tissue, limiting the sensitivity of mammography. No mammographic evidence of malignancy. BIRADS 1-Negative; N. 5 year breast cancer risk assessment 1.2 % Lifetime breast cancer risk assessment 4.7 % Breast cancer risk category Low (<15%) Procedure Note Sarai Arias - 08/17/2022 This is a summary report. The complete report is available in thepatient's medical record. If you cannot access the medical record, pleasecontact the sending organization for a detailed fax or copy. Full field digital screening mammography, reviewed with CAD and comparedto previous. The breast tissue is heterogeneously dense, limitingsensitivity. No suspicious mass, architectural distortion or suspiciouscalcifications are identified. IMPRESSION: : Dense breast tissue, limiting the sensitivity of mammography. Nomammographic evidence of malignancy. BIRADS 1-Negative; N. 5 year breast cancer risk assessment 1.2 % Lifetime breast cancer risk assessment 4.7 % Breast cancer risk category Low (<15%) Scot Owen MD IMG XR PROCEDURES Final Result * Hepatitis C Screening (08/02/2016) Hepatitis C Screening abstracted Historical Provider HEALTH MAINTENANCE Final Result from Last 3 Months or Most Recently Relevant to Health Maintenance Insurance MEDICARE [facility]
--- OUTSIDE RECORDS SUMMARY | 2024-10-26 08:15 | XMS_ITS | Encounter Summary ---
Author Organization [facility] Address [address] [place] [address] Care Team Providers Care Spoon Maker Name Role Phone Pcp, No Primary Care Provider Unavailabl e Reason for Visit * Reason Comments Dysuria Lingering burning wi th urination, was treated with a course of Augmentin 8 days ago when her symptoms first started but notes incomplete resolution of symptoms. Has an appointment with urology next month Encounter Details Date Type Department Care Team (Late st Contact Info) Description 10/19/2024 8:15 AM EST Office Visit [facility] [address] [address] Yonatan Jasmine MD [address] [place] [address] Sandy Lorenzana PA-C [address] [place] [address] Urinary tract infection symptoms Social History Tobacco Use Types Packs/Day Years Used Date Smoking Tobacco: Never Passive Smoke Exposure: Never Smokeless Tobacco: Never Tobacco Cessation:Counseling Given: Not Answered Sex and Gender Information Value Date Recorded Sex Assigned at Female 05/01/2023 3:18 PM EDT Gender Identity Female 05/01/2023 3:18 PM EDT Sexual Orientation Choose not to disclose 2022 3:18 PM EDT documented as of this encounter Last Filed Vital Signs Vital Sign Reading [...] Mass Index 24.21 10/19/2024 8:43 AM EST documented in this encounter Progress Notes * Sandy Lorenzana PA-C - 10/19/2024 8:46 AM EST Assessment and Plan Neha was seen today for dysuria. Diagnoses and all orders for this visit: Urinary tract infection symptoms - POCT Urinalysis Dipstick, Automated - Urine Culture - cephalexin (KEFLEX) 500 MG capsule; Take 1 capsule (500 mg total) by mouth 3 (three) times a day. Medical Decision Making Patient presenting with lingering burning with urination after completing course of Augmentin for aUTI 2 days ago. POC urine and culture from 10/11/2024 was reviewed, and E. coli growth was susceptible to Augmentin. Possible that UTI never completely resolved or that this is a new infection. POC urine showed + leukocytes but no nitrites or blood. Urine culture will be sent out for further evaluation. Will start patient on Keflex since she has said this has worked for her in the past when UTIs have been persistent. Patient with allergies to sulfa antibiotics as well as Cipro. Also considered that this could be general residual bladder or urethral inflammation due to the infection. Patient iswell appearing with normal VS, normal abdominal exam, and no CVA tenderness. exam deferred. Patient instructed to increase fluids, and use Tylenol or Motrin along with phenazopyridine as needed for discomfort, as well as to avoid sexual intercourse until symptoms improve. Patient has urology appointment next month. I also considered interstitial cystitis, acute abdomen, kidney stones, acute pyelonephritis, but these are unlikely based on pt's history, physical exam, and data. Educated patient on signs that may indicate further medical attention like fever, chills, worsening abdominal pain, back pain, or bloodin the urine. Communication barriers and lifestyle preferences were addressed with the patient. The care plan including medications and self-management goals were reviewed to the best of the patient's ability. Allquestions and concerns were answered. Patient verbalized understanding of the plan of care. Subjective History of present illness Neha Montilla is a 68 y.o. female who presents with lingering burning with urination. Patient wasseen in urgent care on 10/11/2024 for UTI symptoms, and was started on Augmentin and Florastor. Patient finished Augmentin 2 days ago. Got better but never completely went away. POC urine showed + leukocytes and nitrites. Urine culture showed greater than 100,000 E. Coli, susceptible to Augmentin. Does note that she does have some bladder pressure at baseline. Patient does have a urology appointment next month. Denies fever, chills, flank pain, nausea, vomiting, diarrhea, abdominal pain, blood in urine. Denies abnormal vaginal discharge or risk for STI's. No LMP recorded. - hysterectomy Review of Systems All negative unless otherwise documented Past Medical History: Diagnosis Date Diverticulitis of colon History reviewed. No pertinent surgical history. Social History Tobacco Use Smoking status: Never Passive exposure: Never Smokeless tobacco: Never Vaping Use Vaping status: Unknown History reviewed. No pertinent family history. Objective Vitals: 10/19/24 0843 BP: 126/81 Pulse: 73 Resp: 14 Temp: 97.9 ??F (36.6 ??C) SpO2: 96% Weight: 68 kg (150 lb) Height: 1.676 m (5' 6 ) Contitutional: General: well developed, well nourished, no acute distress. Skin: Warm and dry, No rash on visible skin Heart: Regular rate and rhythm Lungs: Normal work of breathing. Clear to auscultation. Abdomen: Soft, nontender, nondistended. No guarding or rebound tenderness. No suprapubic tendernessto palpation. Back: No CVA tenderness. : Deferred Sandy Lorenzana PA-C 10/19/24 9:04 AM documented in this encounter Plan of Treatment Not on file documented as of this encounter Procedures Procedure Name Priority Date/Time Associated Diagnosis Comments URINE CULTURE Routine 10/19/2024 8:55 AM EST Urinary tract infection symptoms POCT URINALYSIS DIPSTICK, AUTOMATED Routine 10/19/2024 8:53 AM EST Urinary tract infection symptoms documented in this encounter Results * Urine Culture (10/19/2024 8:55 AM EST) Culture SEE NOTE [employer] Comment: ??CULTURE, URINE, ROUTINE ?Micro Number: ?[id number] ??Test Status: ? Final ??Specimen Source: ?? Urine ??Specimen Quality: ??Adequate ??Result: ?No Growth Microbiology 10/19/2024 8:55 AM EST 10/20/2024 11:52 PM EST Sandy Lorenzana PA-C LAB AMB MICRO ORD ERABLES Performing Organization Address City/State/[facility] Co de Phone Number [employer] [address] [place] [phone] * (ABNORMAL) POCT Urinalysis Dipstick, Automated (10/19/2024 8:53 AM EST) Source, UA Clean Catch Color, UA Yellow [...] Esterase, UA Small (+)(A) Negative Lot Number [id number] [employer] Pass Pass Urine 10/19/2024 8:53 AM EST Sandy Lorenzana PA-C POINT OF CARE ATTILA T ORDERABLES documented in this encounter Visit Diagnoses Diagnosis Urinary tract infection symptoms documented in this encounter Care Teams Spoon Maker Relationship Specialty Start Date End Date Pcp, No PCP - General General Medicine 09/27/24 documented as of this encounter
--- OUTSIDE RECORDS SUMMARY | 2024-10-26 08:15 | XMS_ITS | Data Portability ---
Author Organization [facility], [address] Address [address] [place] [address] Assessment No assessment recorded. Plan of Treatment Reminders Order Date Submit Date Provider Last Modified By Organization Details Last Modified Time Details Appointments None recorded. Lab urinalysis, dipstick 2023 024 [facility], [address] [place], [address], 4 11:46:37 culture, urine 2023 024 PLATO [facility], [address] [place] [address], [place], [address], 4 18:06:08 Referral None recorded. Procedures None recorded. Surgeries None recorded. Imaging None recorded. Medication Orders Pyridium 100 mg tablet 2023 024 [facility]/Pharmacy #[id number], [address] [place], [address], 4 11:46:37 nitrofurant oin monohydrate /macrocryst als 100 mg capsule 2023 024 [id number], [address] [place], [address], 4 18:35:37 Patient TargetsNo targets recorded. Patient InstructionsNo instructions recorded. Reason for Referral None Reported. Results Created Date Observation Date Name Description Value Unit Range Abnormal Flag Note LastModifiedBy Organization Detail LastModifiedTime 02/12/20 24 02/12/2024 urina lysis , dipst ick Unknown Analyte Normal = light yellow Not Available [facility] [address] [place] [address], [address], 02/12/2024 10:50:52 02/12/20 24 02/12/2024 urina lysis , dipst ick Unknown Analyte Dark Yellow Not Available [facility] [address] [place] [address], [phone], 02/12/2024 10:50:52 02/12/20 24 02/12/2024 urina lysis , dipst ick Unknown Analyte Normal = clear Not Available [facility] [address] [place] [address], [phone], 02/12/2024 10:50:52 02/12/20 24 02/12/2024 urina lysis , dipst ick Unknown Analyte Cloudy Not Available [facility] [address] [place] [address], [address], 02/12/2024 10:50:52 02/12/20 24 02/12/2024 urina lysis , dipst ick Unknown Analyte Normal = negati ve Not Available [facility] [address] [place] [address], [phone], 02/12/2024 10:50:52 02/12/20 24 02/12/2024 urina lysis , dipst ick Unknown Analyte 100 mg/dL Not Available [facility] [address] [place] [address], [address], 02/12/2024 10:50:52 02/12/20 24 02/12/2024 urina lysis , dipst ick Unknown Analyte Normal = Negati ve Not Available [facility] [address] [place] [address], [phone], 02/12/2024 10:50:52 02/12/20 24 02/12/2024 urina lysis , dipst ick Unknown Analyte Negati ve Not Available [facility] [address] [place] [address], [address], 02/12/2024 10:50:52 02/12/20 24 02/12/2024 urina lysis , dipst ick Unknown Analyte Normal = Negati ve Not Available [facility] [address] [place] [address], [address], 02/12/2024 10:50:52 02/12/20 24 02/12/2024 urina lysis , dipst ick Unknown Analyte 15 mg/dL Not Available [facility] [address] [place] [address], [address], 02/12/2024 10:50:52 02/12/20 24 02/12/2024 urina lysis , dipst ick Unknown Analyte Normal = 1.010, 1.015, 1.020 Not Available [facility] [address] [place] [address], [address], 02/12/2024 10:50:52 02/12/20 24 02/12/2024 urina lysis , dipst ick Unknown Analyte 1.010 Not Available [facility] [address] [place] [address], [address], 02/12/2024 10:50:52 02/12/20 24 02/12/2024 urina lysis , dipst ick Unknown Analyte Normal = Negati ve Not Available [facility] [address] [place] [address], [address], 02/12/2024 10:50:52 02/12/20 24 02/12/2024 urina lysis , dipst ick Unknown Analyte Trace- intact Not Available [facility] [address] [place] [address], [phone], 02/12/2024 10:50:52 02/12/20 24 02/12/2024 urina lysis , dipst ick Unknown Analyte Normal = 6.5, 7.0, 7.5, 8.0 Not Available [facility] [address] [place] [address], [address], 02/12/2024 10:50:52 02/12/20 24 02/12/2024 urina lysis , dipst ick Unknown Analyte 5.0 Not Available [address], [address], 02/12/2024 10:50:52 02/12/20 24 02/12/2024 urina lysis , dipst ick Unknown Analyte Normal = Negati ve Not Available [address], [address], 02/12/2024 10:50:52 02/12/20 24 02/12/2024 urina lysis , dipst ick Unknown Analyte Trace Not Available [address], [address], 02/12/2024 10:50:52 02/12/20 24 02/12/2024 urina lysis , dipst ick Unknown Analyte Normal = 0.2, 1.0 Not Available [facility] [address] [place] [address], [phone], 02/12/2024 10:50:52 02/12/20 24 02/12/2024 urina lysis , dipst ick Unknown Analyte 1.0 E.U./d L Not Available [address], [address], 02/12/2024 10:50:52 02/12/20 24 02/12/2024 urina lysis , dipst ick Unknown Analyte Normal = Negati ve Not Available [facility] [address] [place], [address], 02/12/2024 10:50:52 02/12/20 24 02/12/2024 urina lysis , dipst ick Unknown Analyte Positi ve Not Available [facility] [address] [place] [address], [address], 02/12/2024 10:50:52 02/12/20 24 02/12/2024 urina lysis , dipst ick Unknown Analyte Normal = Negati ve Not Available [facility] [address] [place] [address], [phone], 02/12/2024 10:50:52 02/12/20 24 02/12/2024 urina lysis , dipst ick Unknown Analyte Large Not Available [facility] [address] [place] [address], [phone], 02/12/2024 10:50:52 02/13/20 24 02/15/2024 URINE CULTU RE, ANDREINA NE urine culture, routine FINAL REPORT abnormal Not Available [facility] ([facility]) [address] [facility] [place], [place], [address], 02/15/2024 14:08:26 02/13/20 24 02/15/2024 URINE CULTU RE, FRANCYI NE result 1 COMMEN T abnormal Beta hemol ytic Strep tococ cus, group B Great er than 100,0 00 colon y formi ng units per mL Penic illin and ampic illin are drugs of choic e for treat ment of beta- hemol ytic strep tococ emilia infec tions . Susce ptibi lity testi ng of penic illin s and other beta- lacta m agent s appro edwin by the FDA for treat ment of beta- hemol ytic strep tococ emilia infec tions need not be perfo rmed routi mary becau se nonsu scept ible isola tirso are extre lauren rare in any beta- hemol ytic strep tococ cus and have not been repor rodrigue for Strep tococ cus pyoge jae (grou p A). (CLSI ) Not Available [facility] ([facility]) [address] [facility] [place], [place], [address], 02/15/2024 14:08:26 Result Notes None recorded. Problems Name Problem SNOMED Code Status Onset Date Resolution Date Notes Provider Name and Address Organization Details Recorded Time Dysuria-fr equency syndrome 4905682 Active 024 Joan Hopper, ISAC [address] [place], [address] , [place] - [facility] 02/12/2024 11:44:23 Problem Notes None recorded. Medical Equipment None Reported. Allergies Allergen ID Allergen Name Allergen Category Reaction Reaction Severity Criticality Documentation Date Start Date Code Code System Note Provider Name and Address Organization Details Recorded Time 904803 Substance with sulfonami de structure and antibacte rial mechanism of action (substanc e) medicatio n Not available Not available Not available 02/12/2024 51437 8003 SNOMED Sheeba bills [place] - [facility] 4 10:48:43 327147 Bactrim medicatio n Not available Not available Not available 02/12/2024 17659 9 RxNorm Sheeba bills [place] - [facility] 4 10:48:50 Medications Name Sig Start Date Stop Date Status Note LastModified by Organization Details LastModified Time prednisone 10 mg tablet PLEASE SEE ATTACHED FOR DETAILED DIRECTION S active Not Available Not Available No t Available Pain Relief (acetaminop hen) 325 mg tablet TAKE 3 TABLETS (975 MG TOTAL) BY MOUTH EVERY 6 (SIX) HOURS NEEDED FOR PAIN. active Not Available Not Available No t Available diltiazem CD 180 mg capsule,ext ended release 24 hr TAKE 1 CAPSULE BY MOUTH EVERY DAY active Not Available Not Available No t Available citalopram 10 mg tablet TAKE 1 TABLET BY MOUTH EVERY DAY IN THE MORNING active Not Available Not Available No t Available phenazopyri dine 200 mg tablet TAKE 1 TABLET BY MOUTH 3 TIMES DAILY NEEDED FOR PAIN FOR UP TO 3 DAYS. 02/11 completed Not Available Not Available Not Available ciprofloxac in 250 mg tablet TAKE 1 TABLET BY MOUTH 2 TIMES DAILY FOR 2 DAYS. 02/11 completed Not Available Not Available Not Available valacyclovi r 500 mg tablet TAKE 1 TABLET BY MOUTH EVERY DAY active Not Available Not Available No t Available ketorolac 10 mg tablet TAKE 1 TABLET BY MOUTH EVERY 6 HOURS NEEDED FOR PAIN FOR UP TO 5 DAYS. 02/11 completed Not Available Not Available Not Available oxycodone-a cetaminophe n 5 mg-325 mg tablet TAKE 1 TABLET BY MOUTH UP TO 5 TIMES PER DAY NEEDED FOR SEVERE PAIN FOR 30 DAYS active Not Available Not Available No t Available phenazopyri dine 100 mg tablet TAKE 1 TABLET 3 TIMES A DAY BY ORAL ROUTE NEEDED FOR 3 DAYS, FOR DYSURIA. active Not Available Not Available No t Available docusate sodium 100 mg capsule TAKE 1 CAPSULE BY MOUTH DAILY NEEDED FOR CONSTIPAT ION. active Not Available Not Available No t Available ibuprofen 600 mg tablet TAKE 1 TABLET BY MOUTH EVERY 6 HOURS NEEDED FOR PAIN active Not Available Not Available No t Available estradiol 0.01% (0.1 mg/gram) vaginal cream PLEASE SEE ATTACHED FOR DETAILED DIRECTION S active Not Available Not Available No t Available oxybutynin chloride 5 mg tablet TAKE 1 TABLET BY MOUTH AT BEDTIME NEEDED URINARY URGENCY 02/11 completed Not Available Not Available Not Available oxycodone 5 mg tablet TAKE 1 TABLET BY MOUTH EVERY 6 HOURS NEEDED FOR PAIN active Not Available Not Available No t Available mirtazapine 7.5 mg tablet TAKE 2 TABLETS BY MOUTH AT BEDTIME NEEDED FOR OTHER (SLEEP). 02/11 completed Not Available Not Available Not Available nitrofurant oin monohydrate /macrocryst als 100 mg capsule Take 1 capsule every 12 hours by oral route for 5 days, for uti. 2023 active Not Available Not Available Not Avai lable Purelax 17 gram oral powder packet DISSOLVE 1 PACKET (17 GRAMS) INTO WATER AND DRINK BY MOUTH EVERY DAY active Not Available Not Available No t Available Vitals Date Recorded Respiratory rate Body height Body mass index (BMI) Body weight Body temperature Heart rate Oxygen saturation Oxygen saturation in Arterial blood by Pulse oximetry Systolic blood pressure Diastolic blood pressure Provider Name and Address Organization Details Last Updated DateTime 4 18 /min 167.64 cm 25.8 kg/m2 93248.7 8 g 97.9 [degF] 93 /min 97 % 97 % 147 mm[Hg] 84 mm[Hg] Sheeba GALLARDO - [facility] 10:51:36 Social History Question Answer Notes LastModified by Organizat ion Details LastModified Time Tobacco Smoking Status Former Smoker [facility] 02/12/2024 10:50:09 What Is Your Level Of Alcohol Consumption? None Information not available 02/12/2024 When Did You Quit Smoking? 1-5yearssin celastcigar ette Information not available 02/12/2024 Have You Had A Flu Shot This Season? No Information not available 02/12/2024 If No, Would You Like A Flu Shot Today? No Information not available 02/12/2024 Have You Had Direct Contact, Or Contact During Intimacy, With Monkeypox Rash, Scabs, Or Body Fluids From A Person With Monkeypox? No Information not available 02/12/2024 What Was The Date Of Your Most Recent Tobacco Screening? 02/12/2024 Information not available 02/12/2024 Do You Use Any Illicit Or Recreational Drugs? No Information not available 02/12/2024 Have You Recently Traveled Abroad? No Information not available 02/12/2024 Do You Or Have You Ever Used Any Other Forms Of Tobacco Or Nicotine? No Information not available 02/12/2024 Sex: Unknown Functional Status None recorded. Mental Status None recorded. Family History Relationship Description Onset Age of this Age Resolved Age Notes LastModified by Organization Details LastModified Time Father No current problems or disability Not available 02/11 10:49:42 Mother No current problems or disability Not available 02/11 10:49:42 Medical History No medical history recorded. Gynecological HistoryNo gynecological history recorded. Obstetrics History GPAL:G 0 P 0 0 0 0 Past Encounters Encounter ID Performer Location Encounter Start Date Encounter Closed Date Diagnosis/Indication Diagnosis SNOMED-CT Code Diagnosis ICD10 Code Diagnosis Note [id number] [address] [address] 02/23/2020 08:37:39 02/23/2020 09:36:03 [id number] [place] Hopper [place] [id number] [address] 02/12/2024 10:37:17 02/12/2024 11:52:13 Dysuria-frequency syndrome 2498876 R30.0 The following are recommenda tions to help with your symptoms and recovery:1 . Drink Plenty of fluids - Stay hydrated2. Finish full antibiotic course3. I recommend starting a Probiotic - I recommend Florastor4 . If you take Azo - this will help the burning and urgency feeling - just be aware it will turn your urine bright yellow. I would not hesitate to be seen again if you develop:1. Severe Back Pain2. Abdominal Pain3. Nausea and Vomiting4. Vaginal Discharge or Bleeding5. Fever > 101.0 You symptoms should improve within 72 hours for a typically UTI. If a urine culture was sent out to the lab for you we should get the results back within 4 days. This will be able to prove that your symptoms are caused by a UTI and it will also verify that the correct antibiotic was prescribed . Thank you for using [facility] - please don't hesistate to call our office if you have any questions or concerns. Health Concerns Section Related Observation LastModified by Organization Detai ls LastModified Time None Recorded Concern Status LastModified by Organization Details LastModified Time None Recorded Advance Directives Directive None Recorded Payers Encounter Date Sequence Insurance Name Policy Number Policy Salazar Covered Member ID Salazar Member ID Guarantor Name 02/23/2020 1 [place] [employer] Neha Montilla [id number] 1 Neha Montilla 02/12/2024 1 [place] [employer] Neah Montilla [id number] 1 Neha Montilla Notes Date Note Type Note Provider Name and Address Organization Details Recorded Time 4 text/html UTI female UCReported bypatient.source of patient informationInformation obtained from patient; Patient arrived at Urgent Care ambulatory UTI Symptoms:no blood in the urine; no vaginal discharge; no pain in the flank; no fever/chills; no incontinence; no recurrent UTI;urgency;pain during urination;burning sensation during urination;abdominal pain Severity:moderate Duration:started ; 2 days Modifying Factors:nothing gives relief patient comes in for possible bladder infectionhas hx of UTI, pain when urinating and a little abdominal pain Joan Hopper NP [address] [place], [address], [place] - [facility] 02/14/2024 18:37:58 OBGyn Episode No OBEpisode recorded.
--- OUTSIDE RECORDS SUMMARY | 2024-10-26 08:15 | XMS_ITS | Encounter Summary ---
Author Organization [facility] Address [address] [place] [id number] Care Team Providers Care Manager Entry Name Role Phone Pcp, No Primary Care Provider Unavailabl e Reason for Visit * Reason Comments Urinary Tract Infection Onset yesterday. C/o pain, odor Encounter Details Date Type Department Care Team ([facility] st Contact Info) Description 10/11/2024 2:35 PM EST Office Visit [facility] [address] [phone] Uriah Holland MD [address] [place] [address] Danielito Carbajal PA-C [address] [place] [address] Bacterial urinary tract infection (Primary Dx); Increased urinary frequency Social History Tobacco Use Types Packs/Day Years [...] Sign Reading Time Taken Comments Blood Pressure 158/95 10/11/2024 2:49 PM EST Pulse 89 10/11/2024 2:49 PM EST Temperature 36.8 ??C (98.2 ??F) 10/11/2024 2:49 PM ES T Respiratory Rate 18 10/11/2024 2:49 PM EST Oxygen Saturation 96% 10/11/2024 2:49 PM EST Inhaled Oxygen Concentration - - Weight 68 kg (150 lb) 10/11/2024 2:49 PM EST Height 167.6 cm (5' 6 ) 10/11/2024 2:49 PM EST Body Mass Index 24.21 10/11/2024 2:49 PM EST documented in this encounter Progress Notes * Danielito Carbajal PA-C - 10/11/2024 3:09 PM EST Images from the original note were not included. [facility] [address] [facility] [place] [address] [facility] [address] [facility] [phone] Encounter Date: 10/11/24 Assessment and Plan Neha was seen today for urinary tract infection. Diagnoses and all orders for this visit: Bacterial urinary tract infection - Urine Culture - amoxicillin-clavulanate (AUGMENTIN) 875-125 MG per tablet; Take 1 tablet by mouth 2 (two) times aday. - saccharomyces boulardii (FLORASTOR) 250 MG capsule; Take 1 capsule (250 mg total) by mouth 2 (two) times a day. Increased urinary frequency - POCT Urinalysis Dipstick, Automated 1. Bacterial urinary tract infection - Urine Culture - amoxicillin-clavulanate (AUGMENTIN) 875-125 MG per tablet; Take 1 tablet by mouth 2 (two) times aday. Dispense: 14 tablet; Refill: 0 - saccharomyces boulardii (FLORASTOR) 250 MG capsule; Take 1 capsule (250 mg total) by mouth 2 (two) times a day. Dispense: 60 capsule; Refill: 0 2. Increased urinary frequency - POCT Urinalysis Dipstick, Automated Increase fluids, rest as needed, no intercourse until symptoms improve. Patient is low risk for complications, vital signs and exam are reassuring. The following diagnoses are unlikely based on today's evaluation: sepsis, acute abdomen, kidney stone, acute pyelonephritis Advised hydration, Tylenol or Motrin as needed for discomfort. Results for orders placed or performed in visit on 10/11/24 POCT Urinalysis Dipstick, Automated Collection Time: 10/11/24 3:03 PM Result Value Ref Range Source, UA Clean Catch Color, UA Yellow Yellow & Clear, Yellow Clarity, UA Cloudy (A) Clear Glucose, UA Negative Negative Bilirubin, UA Negative Negative Ketones, UA Negative Negative Spec Grav, UA 1.010 1.005, 1.010, 1.015, 1.020, 1.025 Blood, UA Negative Negative pH, UA 6.0 5.0, 5.5, 6.0, 6.5, 7.0, 7.5, 8.0 Protein, UA Negative Negative Urobilinogen, UA 0.2 0.2, 1.0 Nitrite, UA Positive (A) Negative Leukocyte Esterase, UA Moderate (++) (A) Negative Urine Output, UA 5 cc Lot Number 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 female who presents with dysuria. Patient states that she was seen in center on 09/27/2024 and diagnosed with a UTI. She was prescribed Macrobid and it did seem that her symptoms were improving initially, but over the past several days her symptoms have returned. She notes foul odor and painful urination as well as increased frequency. Review of urine culture results notes findings of group B strep. Onset: a few days ago Progression: gradually worsening Severity: moderate Fever: no Flank pain: Denies Hematuria: Denies Vaginal discharge: denies Risk of STD: denies No LMP recorded. Review of Systems Const: No fever or chills GI: No nausea/vomiting, No abdominal pain : Positive for dysuria and foul odor. Denies any known history of kidney stones. History reviewed. No pertinent past medical history. History reviewed. No pertinent surgical history. Social History Tobacco Use Smoking status: Never Passive exposure: Never Smokeless tobacco: Never History reviewed. No pertinent family history. diltiazem (CARDIZEM CD) 180 MG 24 hr capsule Take 1 tablet by mouth daily. valACYclovir (VALTREX) 500 MG tablet Take 500 mg by mouth daily. oxyCODONE-acetaminophen (PERCOCET) 5-325 mg per tablet TAKE 1 TABLET BY MOUTH UP TO 5 TIMES DAILY NEEDED FOR SEVERE PAIN phenazopyridine (PYRIDIUM) 200 MG tablet Take 1 tablet (200 mg total) by mouth 3 (three) times a day as needed for bladder spasms. Allergies Allergen Reactions Sulfa Antibiotics Anaphylaxis Objective Vitals: 10/11/24 1449 BP: (!) 158/95 Pulse: 89 Resp: 18 Temp: 98.2 ??F (36.8 ??C) SpO2: 96% Weight: 68 kg (150 lb) Height: 1.676 m (5' 6 ) Contitutional: General: well developed, well nourished, no acute distress. Heart: regular rate and rhythm Lungs: clear, normal work of breathing Abdomen: Soft, nontender, nondistended. No HSM, no masses no guarding no rebound, no epigastric tenderness, no suprapubic tenderness, NEG McBurney's, NEG Chaudhary's Sign. Back: does not have CVA tenderness : deferred Skin: warm dry, no rash on visible skin Danielito Carbajal PA-C 10/11/24 3:09 PM documented in this encounter Miscellaneous Notes * Addendum Note - Danielito Carbajal PA-C - 10/11/2024 4:18 PM ESTAddended by: DANIELITO CARBAJAL on: 10/11/2024 04:18 PM Modules accepted: Orders documented in this encounter Plan of Treatment Not on file documented as of this encounter Procedures Procedure Name Priority Date/Time Associated Diagnosis Comments POCT URINALYSIS DIPSTICK, AUTOMATED Routine 10/11/2024 3:03 PM EST Increased urinary frequency URINE CULTURE Routine 10/11/2024 3:01 PM EST Bacterial urinary tract infection documented in this encounter Results * (ABNORMAL) POCT Urinalysis Dipstick, Automated (10/11/2024 3:03 PM EST) Source, UA Clean Catch Color, UA Yellow Yellow & Clear, Yellow Clarity, UA Cloudy(A) Clear Glucose, UA Negative Negative Bilirubin, UA Negative Negative Ketones, UA Negative Negative Spec Grav, UA 1.010 1.005, 1.010, 1.015, 1.020, 1.025 Blood, UA Negative Negative pH, UA 6.0 5.0, 5.5, 6.0, 6.5, 7.0, 7.5, 8.0 Protein, UA Negative Negative Urobilinogen, UA 0.2 0.2, 1.0 Nitrite, UA Positive(A) Negative Leukocyte Esterase, UA Moderate (++)(A) Negative Urine Output, UA 5 cc Lot Number 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 Final ??Specimen Source: ?? Urine ??Specimen Quality: ??Adequate ??Result: ?Greater than 100,000 CFU/mL of Escherichia coli ??COMMENT: ? Additional non-predominating organism(s) isolated. ? These organisms, commonly found on external and ? internal genitalia, are considered colonizers. No ? further testing performed. ?E.coli ?INT ?? CONNER ?? AMOX/CLAVULANATE ? S ? <=2 ?? AMP/SULBACTAM ?S ? <=2 ?? CEFAZOLIN ?NR ?<=4 2 ?? CEFEPIME ? S ? <=0.12 ?? CEFTAZIDIME ?S ? <=1 ?? CEFTRIAXONE ?S ? <=0.25 ?? CIPROFLOXACIN ?S ? <=0.06 ?? GENTAMICIN ? S ? <=1 ?? IMIPENEM ? S ? <=0.25 ?? LEVOFLOXACIN ? S ? <=0.12 ?? MEROPENEM ?S ? <=0.25 ?? NITROFURANTOIN ? S ? <=16 ?? PIP/TAZOBACTAM ? S ? <=4 ?? TRIMETHOPRIM/SULFA ? S ? <=20 S = Susceptible ??I = Intermediate ??R = Resistant ??NS = Not susceptible SDD = Susceptible Dose Dependent ??* = Not Tested ??NR = Not Reported NN = See Therapy Comments THERAPY COMMENTS ?Note 1: ?For infections other than uncomplicated UTI ?caused by E. coli, K. pneumoniae or P. mirabilis: ?Cefazolin is resistant if CONNER > or = 8 mcg/mL. ?(Distinguishing susceptible versus intermediate ?for isolates with CONNER < or = 4 mcg/mL requires ?additional testing.) ?Note 2: ?For uncomplicated UTI caused by E. coli, ?K. pneumoniae or P. mirabilis: Cefazolin is ?susceptible if CONNER <32 mcg/mL and predicts ?susceptible to the oral agents cefaclor, cefdinir, ?cefpodoxime, cefprozil, cefuroxime, cephalexin ?and loracarbef. Microbiology 10/11/2024 3:01 PM EST 10/12/2024 1:32 PM EST Danielito Carbajal PA-C [facility] [employer] [address] [place] [phone] documented in this encounter Visit Diagnoses Diagnosis Bacterial urinary tract infection- Primary Increased urinary frequency Urinary frequency documented in this encounter Care Teams Manager Entry Relationship Specialty Start Date End Date Pcp, No PCP - General General Medicine 09/27/24 documented as of this encounter
--- OUTSIDE RECORDS SUMMARY | 2024-10-26 08:15 | XMS_ITS | Encounter Summary ---
Author Organization [facility] Address [address] [place] [address] Care Team Providers Care Chemical Radiation Technician Name Role Phone Pcp, No Primary Care Provider Unavailabl e Reason for Visit * Reason Comments Urinary Tract Infection Since tuesday Encounter Details Date Type Department Care Team ([facility] st Contact Info) Description 09/27/2024 9:15 AM EST Office Visit [facility] [address] [phone] Uriah Holland MD [address] [place] [address] Kathryn Quiñones, HIGH CLIMBER [address] [place] [phone] Frequency of urination (Primary Dx); Acute cystitis without hematuria Social History Tobacco Use Types Packs/Day Years [...] Sign Reading Time Taken Comments Blood Pressure 169/98 09/27/2024 9:41 AM EST Pulse 100 09/27/2024 9:41 AM EST Temperature 36.7 ??C (98.1 ??F) 09/27/2024 9:41 AM ES T Respiratory Rate 18 09/27/2024 9:41 AM EST Oxygen Saturation 95% 09/27/2024 9:41 AM EST Inhaled Oxygen Concentration - - Weight 68 kg (150 lb) 09/27/2024 9:41 AM EST Height 167.6 cm (5' 6 ) 09/27/2024 9:41 AM EST Body Mass Index 24.21 09/27/2024 9:41 AM EST documented in this encounter Progress Notes * Kathryn Acevesierre, HIGH CLIMBER - 09/27/2024 9:51 AM EST Assessment & Plan Neha was seen today for urinary tract infection. Diagnoses and all orders for this visit: Frequency of urination - POCT Urinalysis Dipstick, Automated - URINE CULTURE Acute cystitis without hematuria - nitrofurantoin monohydrate (MACROBID) 100 MG capsule; Take 1 capsule (100 mg total) by mouth 2 (two) times a day with meals. Dispense generic equivalent of MACROBID - phenazopyridine (PYRIDIUM) 200 MG tablet; Take 1 tablet (200 mg total) by mouth 3 (three) times aday as needed for bladder spasms. Medical Decision Making: The diagnosis is acute cystitis with out hematuria based on history, physical exam, and lab/diagnostic testing. The following higher risk features were NOT present on today's evaluation: Fever Abdominal pain Flank pain Gross hematuria Dehydration Severe nausea and vomiting Recent urological procedure Evidence of kidney stone I considered pyelonephritis, kidney stone, appendicitis, torsion, and other bacterial infections, but the pt's presentations does not support these diagnoses. UA dipstick positive for infection. The pt/family was advised that some diseases present atypically and the pt was given explicit discharge i nstructions. Prescribed Macrobid at this time. Will send urine for culture and adjust antibiotic therapy if needed. Encouraged patient to increase fluids. Encouraged patient to avoid caffeine and alcohol, as these can irritate the bladder. Follow up with PCP. Reviewed with the patient/family any signs and symptoms that would warrant immediate medical attention. Patient/family was advised to go directly to the emergency department for reevaluation if any new or worsening symptoms develop, including fevers, chills, flank pain, pelvic pain, vaginal pain, vaginal discharge, bleeding, abdominal pain, nausea, or vomiting. Patient/family understand and agree with the plan. Communication barriers and lifestyle preferences were addressed with the Patient and/or family. Thecare plan including medications and self-management goals were reviewed to the best of the Patient and/or family's ability. All questions and concerns were answered. Patient and/or family verbalized understanding of the plan of care. Subjective Neha Montilla is a 68 y.o. female. HPI Chief Complaint: Dysuria, urgency and frequency Duration: 6 days Context: Acute Severity: Moderate Other Pertinent History: Therapy attempted: hydration, Pyridium History of UTIs? Yes No recent urological procedure. No history of kidney stones. Review of Systems Constitutional: Negative for chills and fever. Respiratory: Negative for shortness of breath. Cardiovascular: Negative for chest pain. Gastrointestinal: Negative for abdominal pain, nausea and vomiting. Genitourinary: Positive for dysuria, frequency and urgency. Negative for flank pain, hematuria and vaginal discharge. Musculoskeletal: Negative for back pain. History reviewed. No pertinent past medical history. History reviewed. No pertinent surgical history. Social History Tobacco Use Smoking status: Never Passive exposure: Never Smokeless tobacco: Never History reviewed. No pertinent family history. Objective Vitals: 09/27/24 0941 BP: (!) 169/98 Pulse: 100 Resp: 18 Temp: 98.1 ??F (36.7 ??C) SpO2: 95% Weight: 68 kg (150 lb) Height: 1.676 m (5' 6 ) Physical Exam Vitals reviewed. Constitutional: Appearance: She is not toxic-appearing. HENT: Right Ear: Hearing and external ear normal. Left Ear: Hearing and external ear normal. Mouth/Throat: Comments: Grossly normal inspection. Normal voice, handling secretions normally. Eyes: General: No scleral icterus. Conjunctiva/sclera: Conjunctivae normal. Pulmonary: Effort: Pulmonary effort is normal. No respiratory distress. Abdominal: Palpations: Abdomen is soft. Tenderness: There is no abdominal tenderness. There is no right CVA tenderness, left CVA tenderness. Musculoskeletal: Cervical back: Neck supple. Comments: No extremity tenderness. Lymphadenopathy: Comments: No significant lymphadenopathy. Skin: Findings: No ecchymosis, petechiae or rash. Rash is not purpuric. Comments: Normal for age and race. Grossly normal temperature and turgor. Neurological: Mental Status: She is alert. Gait: Gait normal. Psychiatric: Speech: Speech normal. Behavior: Behavior normal. Results for orders placed or performed in visit on 09/27/24 POCT Urinalysis Dipstick, Automated Collection Time: 09/27/24 9:45 AM Result Value Ref Range Source, UA Clean Catch Color, UA [place] (A) Yellow & Clear, Yellow Clarity, UA Slightly Cloudy (A) Clear Glucose, UA Negative Negative Bilirubin, UA Negative Negative Ketones, UA Negative Negative Spec Grav, UA 1.015 1.005, 1.010, 1.015, 1.020, 1.025 Blood, UA Negative Negative pH, UA 6.0 5.0, 5.5, 6.0, 6.5, 7.0, 7.5, 8.0 Protein, UA Negative Negative Urobilinogen, UA 0.2 0.2, 1.0 Nitrite, UA Positive (A) Negative Leukocyte Esterase, UA Large (+++) (A) Negative Urine Output, UA 2 cc Lot Number [id number] Drop Man Pass Pass Kathryn Quiñones APRN 09/27/24 9:52 AM documented in this encounter Plan of Treatment Not on file documented as of this encounter Procedures Procedure Name Priority Date/Time Associated Diagnosis Comments URINE CULTURE Routine 09/27/2024 9:46 AM EST Frequency of urination POCT URINALYSIS DIPSTICK, AUTOMATED Routine 09/27/2024 9:45 AM EST Frequency of urination documented in this encounter Results * (ABNORMAL) URINE CULTURE (09/27/2024 9:46 AM EST) Culture SEE NOTE(A) [employer] Comment: ??CULTURE, URINE, ROUTINE ?Micro Number: ?[id number] ??Test Status: ? Final ??Specimen Source: ?? Urine, clean catch ??Specimen Quality: ??Adequate ??Result: ?Greater than 100,000 CFU/mL of ? Group B Streptococcus isolated ? Beta-hemolytic streptococci are predictably ? susceptible to Penicillin and other beta-lactams. ? Susceptibility testing not routinely performed. ? Please contact the laboratory within 3 days if ? susceptibility testing is desired. ??Comment: ? Erythromycin and clindamycin are not recommended ? for treatment of urinary tract infections, ? but clindamycin may be useful for treatment of ? rectovaginal colonization or infection. Microbiology Urine specimen obtained by clean catch procedure / Unknown 09/27/2024 9:46 AM EST 09/28/2024 11:03 PM EST Kathryn Quiñones APRN [facility] Performing Organization Address City/State/[facility] Co de Phone Number [employer] [facility] [address] [place] [phone] * (ABNORMAL) POCT Urinalysis Dipstick, Automated (09/27/2024 9:45 AM EST) Source, UA Clean Catch Color, UA [place](A) Yellow & Clear, Yellow Clarity, UA Slightly Cloudy(A) Clear Glucose, UA Negative Negative Bilirubin, UA Negative Negative Ketones, UA Negative Negative Spec Grav, UA 1.015 1.005, 1.010, 1.015, 1.020, 1.025 Blood, UA Negative Negative pH, UA 6.0 5.0, 5.5, 6.0, 6.5, 7.0, 7.5, 8.0 Protein, UA Negative Negative Urobilinogen, UA 0.2 0.2, 1.0 Nitrite, UA Positive(A) Negative Leukocyte Esterase, UA Large (+++)(A) Negative Urine Output, UA 2 cc Lot Number [id number] Drop Man Pass Pass Urine 09/27/2024 9:45 AM EST Kathryn Quiñones APRN POINT OF CARE TEST ORDERABLES documented in this encounter Visit Diagnoses Diagnosis Frequency of urination- Primary Urinary frequency Acute cystitis without hematuria documented in this encounter Care Teams Chemical Radiation Technician Relationship Specialty Start Date End Date Pcp, No PCP - General General Medicine 09/27/24 documented as of this encounter
--- OUTSIDE RECORDS SUMMARY | 2024-10-26 08:15 | XMS_ITS | Encounter Summary ---
Author Organization [facility] Address [address] [place] [id number] Care Team Providers Care Naval Aircrewman Operator Name Role Phone Pcp, No Primary Care Provider Unavailabl e Encounter Details Date Type Department Care Team (Latest Contact Info) Description 10/11/2024 Travel Social History Tobacco Use Types Packs/Day [...] on filedocumented in this encounter Care Teams Naval Aircrewman Operator Relationship Specialty Start Date End Date Pcp, No PCP - General General Medicine 09/27/24 documented as of this encounter
--- OUTSIDE RECORDS SUMMARY | 2024-10-26 08:15 | XMS_ITS ---
Author Name [facility] Organization Unknown History of Medication Use Medication Directions Dispensed Refills Start Date End Date Stat cephalexin (KEFLEX) 500 MG capsule Take 1 capsule (500 mg total) by mouth 3 (three) times a day. 10/19/2024 active amoxicillin-clavulanat e (AUGMENTIN) 875-125 MG per tablet Take 1 tablet by mouth 2 (two) times a day. 10/11/2024 active saccharomyces boulardii (FLORASTOR) 250 MG capsule Take 1 capsule (250 mg total) by mouth 2 (two) times a day. 10/11/2024 active diltiazem (CARDIZEM CD) 180 MG 24 hr capsule Take 1 tablet by mouth daily. 06/11/2024 active phenazopyridine (PYRIDIUM) 200 MG tablet Take 1 tablet (200 mg total) by mouth 3 (three) times a day as needed for bladder spasms. 09/27/2024 active valACYclovir (VALTREX) 500 MG tablet Take 500 mg by mouth daily. 04/19/2023 active oxyCODONE-acetaminophe n (PERCOCET) 5-325 MG per tablet Take 1 tablet by mouth 4 (four) times a day. active acetaminophen (TYLENOL) 325 MG tablet Take 3 tablets (975 mg total) by mouth every 6 (six) hours as needed for pain. 05/24/2023 active nitrofurantoin monohydrate (MACROBID) 100 MG capsule Take 1 capsule (100 mg total) by mouth 2 (two) times a day with meals. 05/01/2023 05/16/2023 active dilTIAZem (CARDIZEM CD) 180 MG 24 hr capsule Take 1 capsule (180 mg total) by mouth daily. active oxyCODONE (ROXICODONE) 5 MG immediate release tablet Take 1 tablet (5 mg total) by mouth every 4 (four) hours as needed. 05/24/2023 active oxyCODONE-acetaminophe n (PERCOCET) 5-325 mg per tablet TAKE 1 TABLET BY MOUTH UP TO 5 TIMES DAILY NEEDED FOR SEVERE PAIN 04/18/2023 active Problems Problem Status Onset Date Problem Type Date of Resolution Source Diverticulitis of colon without hemorrhage active 2006-04-07 ProblemAct [facility] Uterovaginal prolapse, unspecified active 2023-03-30 ProblemAct [facility] DDD (degenerative disc disease), cervical active 2006-02-02 ProblemAct [facility] Urinary tract infection symptoms active EncounterDiagnosisAct [facility] Herpes simplex type II infection active 1995-11-17 ProblemAct [facility] Vaginal atrophy active 2023-03-30 ProblemAct [facility] Mitral valve prolapse active 2022-02-25 ProblemAct [facility] Dysuria-frequency syndrome active 2024-02-12 ProblemAct [facility] Anxiety active 2023-11-17 ProblemAct [facility] Hyperlipidemia active 2020-09-18 ProblemAct [facility] Depression active 2017-03-11 ProblemAct [facility] Lumbar radiculitis active 2024-10-19 ProblemAct [facility] Plantar fasciitis active 2011-07-14 ProblemAct [facility] SVT (supraventricular tachycardia) active 2022-02-23 ProblemAct [facility] Urinary urgency active EncounterDiagnosisAct CTTHNEMG Granulation tissue of vaginal cuff active EncounterDiagnosisAct CTT HNEMG
--- OUTSIDE RECORDS SUMMARY | 2024-10-26 08:15 | XMS_ITS | Encounter Summary ---
Author Organization [facility] Address [address] [place] [id number] Care Team Providers Care Imaging Tech Name Role Phone Pcp, No Primary Care Provider Unavailabl e Reason for Visit * Reason Comments Med Change Request Encounter Details Date Type Department Care Team (Late st Contact Info) Description 10/11/2024 Refill [facility] [address] [phone] Yaa Carbajal PA-C [address] [place] [address] Bacterial urinary tract infection Social History Tobacco Use Types Packs/Day Years [...] documented as of this encounter Visit Diagnoses Diagnosis Bacterial urinary tract infection documented in this encounter Care Teams Imaging Tech Relationship Specialty Start Date End Date Pcp, No PCP - General General Medicine 09/27/24 documented as of this encounter
[2024-10-26 08:22] VITALS: BP 165/76; PULSE 90; O2SAT 97; BMI 25.9
== END 2024-10-26 08:48 | disposition home or self-care (01) ==
PROVIDERS: Visit Provider Nurse Practitioner Family
DX: G89.4 Chronic pain syndrome (principal); M47.816 Spondylosis without myelopathy or radiculopathy, lumbar region; M50.30 Other cervical disc degeneration, unspecified cervical region; Z79.891 Long term (current) use of opiate analgesic
CPT/HCPCS: 99214; G2211

== ENCOUNTER → 2024-10-26 08:07 | Outpatient (BNVA) | payer MEDICARE, SELFPAY | PROVIDERS: Visit Provider Nurse Practitioner Family | DX: M47.816 Spondylosis without myelopathy or radiculopathy, lumbar region (principal); M50.30 Other cervical disc degeneration, unspecified cervical region; G89.4 Chronic pain syndrome; Z79.891 Long term (current) use of opiate analgesic | CPT/HCPCS: 99212 ==

== ENCOUNTER 2024-11-30 08:15 | Outpatient (AMB) | payer MEDICARE, SELFPAY ==
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
[2024-11-30 08:23] VITALS: BP 135/82; PULSE 85; RESP 16; O2SAT 95; BMI 25.8
--- OUTSIDE RECORDS SUMMARY | 2024-11-30 08:26 | XMS_ITS | Encounter Summary ---
[facility] Organization [facility] Address [address] [place] [address] Care Team Providers Care Small Products I Assembler Name Role Phone Scot Owen MD Primary Care Provider Unavailable Lukas Bradford MD Primary Care Provider Jan Juárez DO Primary Care Provider UnavailLane Banerjee MD Unavailable Unavailable Beti Greenwood MD Unavailable Juani Rhodes NP Unavailable [phone] Letitia Khalil MD Primary Care Provider Un available [facility], Pcp Primary Care Provider Unavailabl e Encounter Details Date Type Department Care Team Description 12/04/2018 [facility] Medical Records [address] [place] [address] Abstract, Provider Social History Tobacco Use Types Packs/Day Years Used Date Smoking Tobacco: Some Days Cigarettes Started: 10/27/2005; Last attempted to quit: 03/05/2012 Smokeless Tobacco: Never Comments:started at age 49, 2-3 packs/week Alcohol Use Standard Drinks/Week Comments No 0 (1 standard drink = 0.6 oz pur e alcohol) Alcohol Habits Answer Date Recorded How often do you have a drin k containing alcohol? Never 07/12/2023 How many drinks containing a lcohol do you have on a typical day when you are drinking? Patient does not drink 07/12/2023 How often do you have six or more drinks on one occasion? Never 07/12/2023 Social Isolation Answer Date Recorded In a typical week, how many times do you talk on the phone with family, friends, or neighbors? More than three times a week 07/12/2023 How often do you get togethe r with friends or relatives? More than three times a week 07/12/2023 How often do you attend chur or adventist services? Never 07/12/2023 Do you belong to any clubs o r organizations such as buddhist groups, unions, fraternal or athletic groups, or school groups? Yes 07/12/2023 How often do you attend meet ings of the clubs or organizations you belong to? Never 07/12/2023 Are you now , , , , never or living with a partner? 07/12/2023 Physical Activity Answer Date Recorded On average, how many days pe r week do you engage in moderate to strenuous exercise (like walking fast, running, jogging, dancing, swimming, biking, or other activities that cause a light or heavy sweat)? 4 days 07/12/2023 On average, how many minutes do you engage in exercise at this level? 20 min 07/12/2023 Stress Answer Date Recorded Do you feel stress - tense, restless, nervous, or anxious, or unable to sleep at night because your mind is troubled all the time - these days? To some extent 07/12/2023 Financial Resource Strain Answer Date R ecorded How hard is it for you to pa y for the very basics like food, housing, medical care, and heating? Not hard at all 07/12/2023 Intimate Partner Violence Answer Date R ecorded Within the last year, have y ou been afraid of your partner or ex-partner? No 07/12/2023 Within the last year, have y ou been humiliated or emotionally abused in other ways by your partner or ex-partner? No Within the last year, have y ou been kicked, hit, slapped, or otherwise physically hurt by your partner or ex-partner? No 07/12/2023 Within the last year, have y ou been raped or forced to have any kind of sexual activity by your partner or ex-partner? No 07/12/2023 Food Insecurity Answer Date Recorded Within the past 12 months, y ou worried that your food would run out before you got money to buy more. Never true 07/12/2023 Within the past 12 months, t he food you bought just didn't last and you didn't have money to get more. Never true 07/12/2023 Transportation Needs Answer Date Record ed In the past 12 months, has l ack of transportation kept you from medical appointments or from getting medications? No 06/29 In the past 12 months, has l ack of transportation kept you from meetings, work, or getting things needed for daily living? No 07/12/2023 Housing Stability Answer Date Recorded In the last 12 months, was t here a time when you were not able to pay the mortgage or rent on time? No 07/12/2023 In the last 12 months, how many places have you lived? 1 07/12/2023 In the last 12 months, was t here a time when you did not have a steady place to sleep or slept in a snf (including now)? No 07/12/2023 Sex Assigned at Date Recorded Not on file Job Start Date Occupation Industry Not on file Not on file Not on file documented as of this encounter Plan of Treatment Not on file documented as of this encounter Visit Diagnoses Not on filedocumented in this encounter Care Teams Small Products I Assembler Relationship Specialty Start Date End Date Scot Owen MD PCP - General Internal Medicine 01/23/1606/30/21 Lukas Bradford MD PCP - General Internal Medicine 07/01/21 08/10/21 Jan Palomino DO PCP - General Internal Medicine 08/11/21 11/16/23 Letitia Khalil MD [address] [place] [address] [place] [address] PCP - General Internal Medicine 11/17/23 06/21/24 [facility], Pcp [address] [place] [address] [place] [address] PCP - General Internal Medicine 06/22/24 Lane Valdes MD Specialist Cardiovascular Disease 01/14/22 Beti Greenwood MD [address] [place] [address] [place] [address] UROGYNECOLOGY 07/07/23 Juani Rhodes, ISAC [address] [facility] [place] [address] Cardiology 07/07/23 documented as of this encounter
--- OUTSIDE RECORDS SUMMARY | 2024-11-30 08:26 | XMS_ITS | Encounter Summary ---
[facility] Organization [facility] Address [address] [place] [address] Care Team Providers Care Merchandise Pickup/Receiving Associate Name Role Phone Jan Palomino DO Primary Care Provider UnavailLane Banerjee MD Unavailable Unavailable Beti Greenwood MD Unavailable Juani Rhodes NP Unavailable [phone] Letitia Khalil MD Primary Care Provider Un available [facility], Pcp Primary Care Provider Unavailabl e Encounter Details Date Type Department Care Team Description 05/27/2023 Telephone [address] [phone] Beti Greenwood MD [address] [place] [address] [place] [address] Social History Tobacco Use Types Packs/Day Years Used Date Smoking Tobacco: Former Cigarettes 0 10/27/2005 - 09/29/2019 Smokeless Tobacco: Never Comments:started at age 49, [...] How often do you attend chur or orthodox services? Never 07/12/2023 Do you belong to any clubs o r organizations such as roman catholic groups, unions, fraternal or athletic groups, or [...] place to sleep or slept in a half-way (including now)? No 07/12/2023 Sex Assigned at Date Recorded Not on file Job Start Date Occupation Industry Not on file Not on file Not on file COVID-19 Exposure Response Date Recorded In the last 10 days, have yo u been in contact with someone who was confirmed or suspected to have Coronavirus/COVID-19? No / Unsure 05/17/2023 12:51 PM EDT documented as of this encounter Plan of Treatment Not on file documented as of this encounter Visit Diagnoses Not on filedocumented in this encounter Care Teams Merchandise Pickup/Receiving Associate Relationship Specialty Start Date End Date Jna Palomino DO PCP - General Internal Medicine 08/11/21 11/16/23 Letitia Khalil MD [address] [place], [place] [address] [place] [address] PCP - General Internal Medicine 11/17/23 06/21/24 [facility], Pcp [address] [place] [address] [place] [address] PCP - General Internal Medicine 06/22/24 Lane Valdes MD Specialist Cardiovascular Disease 01/14/22 Beti Greenwood MD [address] [place], [place] [address], [place] [address] UROGYNECOLOGY 07/07/23 Juani Rhodes, ISAC [address] [facility] [place] [address] Cardiology 07/07/23 documented as of this encounter
--- OUTSIDE RECORDS SUMMARY | 2024-11-30 08:26 | XMS_ITS | Encounter Summary ---
Author Organization [facility] Address [address] [place] [address] Care Team Providers Care Receiving Tank Operator Name Role Phone Jan Palomino DO Primary Care Provider UnavailLane Banerjee MD Unavailable Unavailable Beti Greenwood MD Unavailable Juani Rhodes NP Unavailable [phone] Letitia Khalil MD Primary Care Provider Un available [facility], Pcp Primary Care Provider Unavailabl e Encounter Details Date Type Department Care Team Description 05/06/2023 Valve Maker Report Medical Records [address] [place] [address] Gumaro Vazquez MD Social History Tobacco Use Types Packs/Day Years [...] 07/12/2023 How often do you attend chur ch or advent services? Never 07/12/2023 Do you belong to any clubs o r organizations such as yarsanism groups, unions, fraternal or athletic groups, or [...] place to sleep or slept in a nursing home (including now)? No 07/12/2023 Sex Assigned at Date Recorded Not on file Job Start Date Occupation Industry Not on file Not on file Not on file COVID-19 Exposure Response Date Recorded In the last 10 days, have yo u been in contact with someone who was confirmed or suspected to have Coronavirus/COVID-19? No / Unsure 05/04/2023 10:40 AM EDT documented as of this encounter Plan of Treatment Not on file documented as of this encounter Visit Diagnoses Not on filedocumented in this encounter Care Teams Receiving Tank Operator Relationship Specialty Start Date End Date Jan Palomino DO PCP - General Internal Medicine 08/11/21 11/16/23 Letitia Khalil MD [address] [facility] [address] PCP - General Internal Medicine 11/17/23 06/21/24 [facility], Pcp [address] [place] [address] [place] [address] PCP - General Internal Medicine 06/22/24 Lane Valdes MD Specialist Cardiovascular Disease 01/14/22 Beti Greenwood MD [address] [facility] [place] [address] UROGYNECOLOGY 07/07/23 Juani Rhodes NP [address] [facility] [place] [address] Cardiology 07/07/23 documented as of this encounter
--- OUTSIDE RECORDS SUMMARY | 2024-11-30 08:26 | XMS_ITS | Encounter Summary ---
[facility] Organization [facility] Address [address] [place] [address] Care Team Providers Care Epic Willow Analyst Name Role Phone Samuel Cornelius Primary Care Provider Kristina Gilbert MD Primary Care Provider UnavailScot Hansen MD Primary Care Provider Unavailable Lukas Bradford MD Primary Care Provider Jan Juárez DO Primary Care Provider Unavaila Lane Villalobos MD Unavailable Unavailable Beti Greenwood MD Unavailable Juani Rhodes NP Unavailable [phone] Letitia Khalil MD Primary Care Provider Un available Replaced By [facility], Pcp Primary Care Provider Unavailabl e Encounter Details Date Type Department Care Team Description 06/17/2015 Hemodialysis Technician Report Medical Records [address] [place] [address] Leanne Engel MD Social History Tobacco Use Types Packs/Day Years Used Date Smoking Tobacco: Some Days Cigarettes Last attempted to quit: 03/05/2012 Smokeless Tobacco: Never Alcohol Use Standard Drinks/Week [...] often do you attend chur ch or shinto services? Never 07/12/2023 Do you belong to any clubs o r organizations such as congregational groups, unions, fraternal or athletic groups, or [...] place to sleep or slept in a usp (including now)? No 07/12/2023 Sex Assigned at Date Recorded Not on file Job Start Date Occupation Industry Not on file Not on file Not on file documented as of this encounter Plan of Treatment Not on file documented as of this encounter Visit Diagnoses Not on filedocumented in this encounter Care Teams Epic Willow Analyst Relationship Specialty Start Date End Date Samuel Cornelius PCP - General 08/29/05 12/24/15 Kristina Chatman MD PCP - General Internal Medicine 12/25/15 01/22/16 Scot Owen MD PCP - General Internal Medicine 01/23/1606/30/21 Lukas Bradfodr MD PCP - General Internal Medicine 07/01/21 08/10/21 Jan Palomino DO PCP - General Internal Medicine 08/11/21 11/16/23 Letitia Khalil MD [address] [place], [place] [address] [address] PCP - General Internal Medicine 11/17/23 06/21/24 Replaced By [facility], Pcp [address] [place], [place] [address] [address] PCP - General Internal Medicine 06/22/24 Lane Valdes MD Specialist Cardiovascular Disease 01/14/22 Beti Greenwood MD [address] [facility] [place] [address] UROGYNECOLOGY 07/07/23 Juani Rhodes NP [address] [facility] [place]rogyne[place] [address] Cardiology 07/07/23 documented as of this encounter
--- OUTSIDE RECORDS SUMMARY | 2024-11-30 08:26 | XMS_ITS | Encounter Summary ---
Author Organization [facility] Address [address] [place] [address] Care Team Providers Care Java User Interface Developer Name Role Phone Jan Palomino DO Primary Care Provider UnavailLane Banerjee MD Unavailable Unavailable Beti Greenwood MD Unavailable Juani Rhodes NP Unavailable [phone] Letitia Khalil MD Primary Care Provider Un available [facility], Pcp Primary Care Provider Unavailabl e Reason for Visit * Reason Onset Date Comments Pre-op Needed 03/29/2023 Encounter Details Date Type Department Care Team Description 03/29/2023 Pt. Non Urgent Medic al Question Adult Medicine - [address] [address] Jan Palomino DO Social History Tobacco Use Types Packs/Day Years [...] How often do you attend chur or alevism services? Never 07/12/2023 Do you belong to any clubs o r organizations such as temple groups, unions, fraternal or athletic groups, or [...] place to sleep or slept in a long-term (including now)? No 07/12/2023 Sex Assigned at Date Recorded Not on file Job Start Date Occupation Industry Not on file Not on file Not on file COVID-19 Exposure Response Date Recorded In the last 10 days, have yo u been in contact with someone who was confirmed or suspected to have Coronavirus/COVID-19? No / Unsure 03/21/2023 9:49 AM EDT documented as of this encounter Miscellaneous Notes * Telephone Encounter - Anna Kemp M.A. - 03/30/2023 9:33 AM EDTFrom: Neha Aguilarours To: Jyoti Palomino Sent: 03/29/2023 6:25 PM EDT Subject: Check up Dr Greenwood wants me to get a check up. I'm scheduled for surgery on and she wants me to see Dr Palomino for a check up within 30 days of the surgery. documented in this encounter Plan of Treatment Not on file documented as of this encounter Visit Diagnoses Not on filedocumented in this encounter Care Teams Java User Interface Developer Relationship Specialty Start Date End Date Jan Palomino DO PCP - General Internal Medicine 08/11/21 11/16/23 Letitia Khalil MD [address] [facility] [place] [address] PCP - General Internal Medicine 11/17/23 06/21/24 [facility], Pcp [address] [facility] [place] [address] PCP - General Internal Medicine 06/22/24 Lane Valdes MD Specialist Cardiovascular Disease 01/14/22 Beti Greenwood MD [address] [facility] [place] [address] UROGYNECOLOGY 07/07/23 Juani Rhodes, ISAC [address] [facility] [place] [address] Cardiology 07/07/23 documented as of this encounter
--- OUTSIDE RECORDS SUMMARY | 2024-11-30 08:26 | XMS_ITS | Encounter Summary ---
Author Organization [facility] Address [address] [place] [address] Care Team Providers Care Fire Protection Specialist Name Role Phone Jan Palomino DO Primary Care Provider UnavailLane Banerjee MD Unavailable Unavailable Beti Greenwood MD Unavailable Juani Rhodes NP Unavailable [phone] Letitia Khalil MD Primary Care Provider Un available [facility], Pcp Primary Care Provider Unavailabl e Encounter Details Date Type Department Care Team Description 06/13/2023 Fluid Designer Report Medical Records [address] [place] [address] Gumaro Vazquez MD Social History Tobacco Use [...] often do you attend chur ch or lutheran services? Never 07/12/2023 Do you belong to any clubs o r organizations such as moravian groups, unions, fraternal or athletic groups, or [...] place to sleep or slept in a group home (including now)? No 07/12/2023 Sex Assigned at Date Recorded Not on file Job Start Date Occupation Industry Not on file Not on file Not on file COVID-19 Exposure Response Date Recorded In the last 10 days, have yo u been in contact with someone who was confirmed or suspected to have Coronavirus/COVID-19? No / Unsure 06/07/2023 8:54 AM EDT documented as of this encounter Plan of Treatment Not on file documented as of this encounter Visit Diagnoses Not on filedocumented in this encounter Care Teams Fire Protection Specialist Relationship Specialty Start Date End Date Jan Palomino DO PCP - General Internal Medicine 08/11/21 11/16/23 Letitia Khalil MD [address] [place] [address] [place] [address] PCP - General Internal Medicine 11/17/23 06/21/24 [facility], Pcp [address] [place] [address] [place] [address] PCP - General Internal Medicine 06/22/24 Lane Valdes MD Specialist Cardiovascular Disease 01/14/22 Beti Greenwood MD [address] [facility] [place] [address] UROGYNECOLOGY 07/07/23 Juani Rhodes NP [address] [facility] [place] [address] Cardiology 07/07/23 documented as of this encounter
--- OUTSIDE RECORDS SUMMARY | 2024-11-30 08:26 | XMS_ITS | Encounter Summary ---
Author Organization [facility] Address [address] [place] [address] Care Team Providers Care Life Skills Teacher Name Role Phone Jan Palomino DO Primary Care Provider UnavailLane Banerjee MD Unavailable Unavailable Beti Greenwood MD Unavailable Juani Rhodes NP Unavailable [phone] Letitia Khalil MD Primary Care Provider Un available [facility], Pcp Primary Care Provider Unavailabl e Encounter Details Date Type Department Care Team Description 11/05/2022 Flash Developer Report Medical Records [address] [place] [address] Gumaro Vazquez MD Social History Tobacco Use [...] often do you attend chur ch or jehovah's witness services? Never 07/12/2023 Do you belong to any clubs o r organizations such as rastafarian groups, unions, fraternal or athletic groups, or [...] on filedocumented in this encounter Care Teams Life Skills Teacher Relationship Specialty Start Date End Date Jan Palomino, PCP - General Internal Medicine 08/11/21 11/16/23 Letitia Khalil MD [address] [place] [address] [place] [address] PCP - General Internal Medicine 11/17/23 06/21/24 [facility], Pcp [address] [place] [address] PCP - General Internal Medicine 06/22/24 Lane Valdes MD Specialist Cardiovascular Disease 01/14/22 Beti Greenwood MD [address] [facility] [place] [address] UROGYNECOLOGY 07/07/23 Juani Rhodes NP [address] [facility] [place] [address] Cardiology 07/07/23 documented as of this encounter
--- OUTSIDE RECORDS SUMMARY | 2024-11-30 08:26 | XMS_ITS | Encounter Summary ---
Author Organization [facility] Address [address] [place] [address] Care Team Providers Care Urban Design Consultant Name Role Phone Scot Owen MD Primary Care Provider Unavailable Lukas Bradford MD Primary Care Provider Jan Juárez DO Primary Care Provider UnavailLane Banerjee MD Unavailable Unavailable Beti Greenwood MD Unavailable Juani Rhodes NP Unavailable [phone] Letitia Khalil MD Primary Care Provider Un available [facility], Pcp Primary Care Provider Unavailabl e Encounter Details Date Type Department Care Team Description 09/10/2020 [facility] Medical Records [address] [place] [address] Abstract, Provider Social History Tobacco Use Types Packs/Day Years Used Date Smoking Tobacco: Light Smoker Cigarettes Started: 006; Last attempted to quit: 03/05/2012 Smokeless Tobacco: [...] How often do you attend chur or uatsdin services? Never 07/12/2023 Do you belong to any clubs o r organizations such as mormonism groups, unions, fraternal or athletic groups, or [...] place to sleep or slept in a fdc (including now)? No 07/12/2023 Sex Assigned at Date Recorded Not on file Job Start Date Occupation Industry Not on file Not on file Not on file documented as of this encounter Plan of Treatment Not on file documented as of this encounter Visit Diagnoses Not on filedocumented in this encounter Care Teams Urban Design Consultant Relationship Specialty Start Date End Date Scot Owen MD PCP - General Internal Medicine 01/23/1606/30/21 Lukas Bradford MD PCP - General Internal Medicine 07/01/21 08/10/21 Jan Palomino DO PCP - General Internal Medicine 08/11/21 11/16/23 Letitia Khalil MD [address] [place] [address] [facility] [address] PCP - General Internal Medicine 11/17/23 06/21/24 [facility], Pcp [address] [place] [address] [place] [address] PCP - General Internal Medicine 06/22/24 Lane Valdes MD Specialist Cardiovascular Disease 01/14/22 Beti Greenwood MD [address] [place] [address] [place] [address] UROGYNECOLOGY 07/07/23 Juani Rhodes, ISAC 444 [facility] [place] [address] Cardiology 07/07/23 documented as of this encounter
--- OUTSIDE RECORDS SUMMARY | 2024-11-30 08:26 | XMS_ITS | Encounter Summary ---
Author Organization [facility] Address [address] [place] [address] Care Team Providers Care Acid Splicer Name Role Phone Pcp, No Primary Care Provider Unavailabl e Reason for Visit * Reason Comments Med Change Request Encounter Details Date Type Department Care Team (Late st Contact Info) Description 10/11/2024 Refill [facility] [address] [phone] Yaa Carbajal PA-C [address] [place] [address] Bacterial urinary tract infection Social History Tobacco [...] infection documented in this encounter Care Teams Acid Splicer Relationship Specialty Start Date End Date Pcp, No PCP - General General Medicine 09/27/24 documented as of this encounter
--- OUTSIDE RECORDS SUMMARY | 2024-11-30 08:26 | XMS_ITS | Encounter Summary ---
Author Organization [facility] Address [address] [place] [address] Care Team Providers Care Track Vehicle Repairer Name Role Phone Jna Palomino DO Primary Care Provider UnavailLane Banerjee MD Unavailable Unavailable Beti Greenwood MD Unavailable Juani Rhodes NP Unavailable [phone] Letitia Khalil MD Primary Care Provider Un available [facility], Pcp Primary Care Provider Unavailabl e Reason for Visit * Reason Onset Date Comments urination problems 06/20/2023 Encounter Details Date Type Department Care Team Description 06/20/2023 [address] [phone] Beti Greenwood MD [address] [place] [address] [place] [address] urination problems Social History Tobacco Use Types Packs/Day Years [...] week 07/12/2023 How often do you attend [facility] or episcopalian services? Never 07/12/2023 Do you belong to any clubs o r organizations such as evangelical groups, unions, fraGloNav or athletic groups, or school groups? Yes [...] place to sleep or slept in a mcfp (including now)? No 07/12/2023 Sex Assigned at [...] encounter Miscellaneous Notes * Telephone Encounter - Beti Greenwood MD - 06/20/2023 12:20 PM EDT Spoke with Neha. She reports that she developed sudden onset of pain with urination and blood inher urine, with pelvic pressure. She started taking leftover ciprofloxacin 500 mg (1/2 tablet twicea day) yesterday. She has none left. She called my CT office and was advised to leave a urine sample for culture which she submitted this morning. She notes improvement in her symptoms since startingthe antibiotics. I advised that her urine culture may return negative as a result of being on the antibiotics already at the time of sample, but given her symptoms and improvement on antibiotics, I will have her complete 2 more days of Cipro. Advised if she has persistence of symptoms she should come in so I can evaluate her in my office. She will provide us with an update by . She reports resolution of her diarrhea that occurred previously. All questions answered. She was appreciative of the call. Beti Greenwood MD 06/20/2023 * Telephone Encounter - Sophie Kendall - 06/20/2023 11:46 AM EDT Patient is calling states she is in a lot of pain. Urinating blood. Has been like this all weekend,fears she may have some sort of infection. Would like a nurse or provider call back as soon as possible. documented in this encounter Plan of Treatment Not on file documented as of this encounter Visit Diagnoses Diagnosis Acute cystitis with hematuria- Primary Acute cystitis documented in this encounter Care Teams Track Vehicle Repairer Relationship Specialty Start Date End Date Jan Palomino DO PCP - General Internal Medicine 08/11/21 11/16/23 Letitia Khalil MD 4 [facility] [place] [address] PCP - General Internal Medicine 11/17/23 06/21/24 [facility], Pcp [address] [place], [place] [address] [address] PCP - General Internal Medicine 06/22/24 Lane Valdes MD Specialist Cardiovascular Disease 01/14/22 Beti Greenwood MD 444 [facility] [place] [address] UROGYNECOLOGY 07/07/23 Juani Rhodes NP [address] [facility] [place] [address] Cardiology 07/07/23 documented as of this encounter
--- OUTSIDE RECORDS SUMMARY | 2024-11-30 08:26 | XMS_ITS | Encounter Summary ---
Author Organization [facility] Address [address] [place] [address] Care Team Providers Care Nursery Supervisor Name Role Phone Scot Owen MD Primary Care Provider Unavailable Lukas Bradford MD Primary Care Provider Jan Juárez DO Primary Care Provider UnavailLane Banerjee MD Unavailable Unavailable Beti Greenwood MD Unavailable Juani Rhodes NP Unavailable [phone] Letitia Khalil MD Primary Care Provider Un available [facility], Pcp Primary Care Provider Unavailabl e Encounter Details Date Type Department Care Team Description 05/02/2019 [facility] Medical Records [address] [place] [address] Abstract, Provider Social History Tobacco Use Types [...] How often do you attend chur or hindu services? Never 07/12/2023 Do you belong to any clubs o r organizations such as tenriism groups, unions, fraternal or athletic groups, or [...] on filedocumented in this encounter Care Teams Nursery Supervisor Relationship Specialty Start Date End Date Scot Owen MD PCP - General Internal Medicine 01/23/1606/30/21 Lukas Brafdord MD PCP - General Internal Medicine 07/01/21 08/10/21 Jan Palomino DO PCP - General Internal Medicine 08/11/21 11/16/23 Letitia Khalil MD [address] [place] [address] [place] [address] PCP - General Internal Medicine 11/17/23 06/21/24 [facility], Pcp [address] [place] [address] [facility] [place] [address] PCP - General Internal Medicine 06/22/24 Lane Valdes MD Specialist Cardiovascular Disease 01/14/22 Beti Greenwood MD [address] [place] [address] U[facility]olog[facility]izons [place] [address] UROGYNECOLOGY 07/07/23 Juani Rhodes, ISAC 444 [facility] [place] [address] Cardiology 07/07/23 documented as of this encounter
--- OUTSIDE RECORDS SUMMARY | 2024-11-30 08:26 | XMS_ITS | Encounter Summary ---
Author Organization [facility] Address [address] [place] [address] Care Team Providers Care Non Food Receiving Clerk Name Role Phone Jan Palomino DO Primary Care Provider Lane Macario MD Unavailable Unavailable Beti Greenwood MD Unavailable Juani Rhodes NP Unavailable [phone] Letitia Khalil MD Primary Care Provider Un available [facility], Pcp Primary Care Provider Unavailabl e Encounter Details Date Type Department Care Team Description 05/24/2023 Hospital Medical Records [address] [place] [address] Beti Greenwood MD 4 [facility] [place] [address] Social History Tobacco Use Types Packs/Day Years [...] often do you attend chur ch or jew services? Never 07/12/2023 Do you belong to any clubs o r organizations such as scientology groups, unions, fraternal or athletic groups, or [...] place to sleep or slept in a penitentiary (including now)? No 07/12/2023 Sex Assigned at [...] on filedocumented in this encounter Care Teams Non Food Receiving Clerk Relationship Specialty Start Date End Date Jan Palomino DO PCP - General Internal Medicine 08/11/21 11/16/23 Letitia Khalil MD [address] [place] [address] [facility] [place] [address] PCP - General Internal Medicine 11/17/23 06/21/24 [facility], Pcp [address] [place], [place] [address] [place] [address] PCP - General Internal Medicine 06/22/24 Lane Valdes MD Specialist Cardiovascular Disease 01/14/22 Beti Greenwood MD [address] [place] [address] [place] [address] UROGYNECOLOGY 07/07/23 Juani Rhodes, ISAC 444 [facility] [place] [address] Cardiology 07/07/23 documented as of this encounter
--- OUTSIDE RECORDS SUMMARY | 2024-11-30 08:26 | XMS_ITS | Encounter Summary ---
Author Organization [facility] Address [address] [place] [address] Care Team Providers Care Barrel Turner Name Role Phone Jan Palomino DO Primary Care Provider UnavailLane Banerjee MD Unavailable Unavailable Beti Greenwood MD Unavailable Juani Rhodes NP Unavailable [phone] Letitia Khalil MD Primary Care Provider Un available [facility], Pcp Primary Care Provider Unavailabl e Encounter Details Date Type Department Care Team Description 11/29/2022 Pt. Non Urgent Medic al Question Adult Medicine - [address] [address] Jan Palomino DO Social History Tobacco Use [...] How often do you attend chur or orthodoxy services? Never 07/12/2023 Do you belong to [...] place to sleep or slept in a chcf (including now)? No 07/12/2023 Sex Assigned at Date Recorded Not on file Job Start Date Occupation Industry Not on file Not on file Not on file documented as of this encounter Plan of Treatment Not on file documented as of this encounter Visit Diagnoses Not on filedocumented in this encounter Care Teams Barrel Turner Relationship Specialty Start Date End Date Jan Palomino, PCP - General Internal Medicine 08/11/21 11/16/23 Letitia Khalil MD [address] [place] [address] [place] [address] PCP - General Internal Medicine 11/17/23 06/21/24 [facility], [address] [place] [address] PCP - General Internal Medicine 06/22/24 Lane Valdes MD Specialist Cardiovascular Disease 01/14/22 Beti Greenwood MD [address] [place] [address] [place] [address] UROGYNECOLOGY 07/07/23 Juani Rhodes NP 444 [facility] [place] [address] Cardiology 07/07/23 documented as of this encounter
--- OUTSIDE RECORDS SUMMARY | 2024-11-30 08:26 | XMS_ITS | Encounter Summary ---
Author Organization 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 Never 07/12/2023 Do you belong to any clubs o r organizations such as gnosticism groups, unions, fraternal or athletic groups, or [...] place to sleep or slept in a jail (including now)? No 07/12/2023 Sex Assigned at Date Recorded Not on file Job Start Date Occupation Industry Not on file Not on file Not on file documented as of this encounter Plan of Treatment Not on file documented as of this encounter Visit Diagnoses Not on filedocumented in this encounter Care Teams Miller Head Wet Process Relationship Specialty Start Date End Date Jan Palomino, PCP - General Internal Medicine 08/11/21 11/16/23 Letitia Khalil MD 4 [facility] [place] [address] PCP - General Internal Medicine 11/17/23 06/21/24 [facility], Pcp [address] [place] [address] PCP - General Internal Medicine 06/22/24 Lane Valdes MD Specialist Cardiovascular Disease 01/14/22 Beti Greenwood MD [address] [facility] [place] [address] UROGYNECOLOGY 07/07/23 Juani Rhodes NP [address] [facility] [place] [address] Cardiology 07/07/23 documented as of this encounter
--- OUTSIDE RECORDS SUMMARY | 2024-11-30 08:26 | XMS_ITS | Encounter Summary ---
Author Organization [facility] Address [address] [place] [address] Care Team Providers Care Cath Lab Technologist Name Role Phone Jan Palomino DO Primary Care Provider UnavailLane Banerjee MD Unavailable Unavailable Beti Greenwood MD Unavailable Juani Rhodes NP Unavailable [phone] Letitia Khalil MD Primary Care Provider Un available [facility], [facility], Pcp Primary Care Provider Unavailabl e Encounter Details Date Type Department Care Team Description 07/11/2023 Compensation Agent Report Medical Records [address] [place] [address] Gumaro Vazquez MD Social History Tobacco Use [...] often do you attend chur ch or taoist services? Never 07/12/2023 Do you belong to any clubs o r organizations such as taoism groups, unions, fraternal or athletic groups, or [...] suspected to have Coronavirus/COVID-19? No / Unsure 07/12/2023 9:10 AM EST documented as of this encounter Plan of Treatment Not on file documented as of this encounter Visit Diagnoses Not on filedocumented in this encounter Care Teams Cath Lab Technologist Relationship Specialty Start Date End Date Jan Palomino DO PCP - General Internal Medicine 08/11/21 11/16/23 Letitia Khalil MD 4 [facility] [place] [address] PCP - General Internal Medicine 11/17/23 06/21/24 [facility], [facility], Pcp [address] [place] [address] [place] [address] PCP - General Internal Medicine 06/22/24 Lane Valdes MD Specialist Cardiovascular Disease 01/14/22 Beti Greenwood MD 4 [facility] [place] [address] UROGYNECOLOGY 07/07/23 Juani Rhodes NP 444 [facility] [place] [address] Cardiology 07/07/23 documented as of this encounter
--- OUTSIDE RECORDS SUMMARY | 2024-11-30 08:27 | XMS_ITS | Encounter Summary ---
[facility] Address [address] [place] [address] Care Team Providers Care Manager Park Name Role Phone Scot Owen MD Primary Care Provider Unavailable Lukas Bradford MD Primary Care Provider Jan Juárez DO Primary Care Provider UnavailLane Banerjee MD Unavailable Unavailable Beti Greenwood MD Unavailable Juani Rhodes NP Unavailable [phone] Letitia Khalil MD Primary Care Provider Un available [facility], Pcp Primary Care Provider Unavailabl e Encounter Details Date Type Department Care Team Description 11/09/2019 [facility] Medical Records [address] [place] [address] Abstract, Provider Social History Tobacco Use Types [...] How often do you attend chur or sikhism services? Never 07/12/2023 Do you belong to any clubs o r organizations such as restorationism groups, unions, fraternal or athletic groups, or [...] on filedocumented in this encounter Care Teams Manager Park Relationship Specialty Start Date End Date Scot Owen MD PCP - General Internal Medicine 01/23/1606/30/21 Lukas Bradford MD PCP - General Internal Medicine 07/01/21 08/10/21 Jan Palomino DO PCP - General Internal Medicine 08/11/21 11/16/23 Letitia Khalil MD [address] [place] [address] [place] [address] PCP - General Internal Medicine 11/17/23 06/21/24 [facility], Pcp [address] [place] [address] [facility] [place] [address] PCP - General Internal Medicine 06/22/24 Lane Valdes MD Specialist Cardiovascular Disease 01/14/22 Beti Greenwood MD [address] [place] [address] [facility] [place] [address] UROGYNECOLOGY 07/07/23 Juani Rhodes, ISAC 444 [facility] [place] [address] Cardiology 07/07/23 documented as of this encounter
--- OUTSIDE RECORDS SUMMARY | 2024-11-30 08:27 | XMS_ITS | Encounter Summary ---
Author Organization [facility] Address [address] [place] [address] Care Team Providers Care Bowling Ball Weigher And Packer Name Role Phone Scot Owen MD Primary Care Provider Unavailable Lukas Bradford MD Primary Care Provider Jan Juárez DO Primary Care Provider UnavailLane Banerjee MD Unavailable Unavailable Beti Greenwood MD Unavailable Juani Rhodes NP Unavailable Letitia Khalil MD Primary Care Provider Un available [facility], Pcp Primary Care Provider Unavailabl e Encounter Details Date Type Department Care Team Description 09/19/2020 Telephone Adult Medicine - [address] [address] Scot Owen MD Social History Tobacco Use Types Packs/Day [...] often do you attend chur ch or synagogue services? Never 07/12/2023 Do you belong to any clubs o r organizations such as latter-day groups, unions, fraternal or athletic groups, or [...] Exposure Response Date Recorded In the last month, have you been in contact with someone who was confirmed or suspected to have Coronavirus / COVID-19? No / Unsure 09/18/2020 9:21 AM EST documented as of this encounter Miscellaneous Notes * Telephone Encounter - Becki Marroquin M.A. - 09/24/2020 3:29 PM EST Left voicemail asking to return call regarding message below. * Telephone Encounter - Kimberley John M.A. - 09/19/2020 4:11 PM EST Called and left message for pt to return call * Telephone Encounter - Kimberley John M.A. - 09/19/2020 4:11 PM EST ----- Message from Scot Owen MD sent at 09/18/2020 4:38 PM EST ----- Please call patient to inform the results Her cholesterol is elevated. Needs appointment to discuss medication options. documented in this encounter Plan of Treatment Not on file documented as of this encounter Visit Diagnoses Not on filedocumented in this encounter Care Teams Bowling Ball Weigher And Packer Relationship Specialty Start Date End Date Scot Owen MD PCP - General Internal Medicine 01/23/1606/30/21 Lukas Bradford MD PCP - General Internal Medicine 07/01/21 08/10/21 Jan Palomino DO PCP - General Internal Medicine 08/11/21 11/16/23 Letitia Khalil MD [address] [place] [address] [place] [address] PCP - General Internal Medicine 11/17/23 06/21/[address] [place] [address] PCP - General Internal Medicine 06/22/24 Lane Valdes MD Specialist Cardiovascular Disease 01/14/22 Beti Greenwood MD [address] [place] [address] [place] [address] UROGYNECOLOGY 07/07/23 Juani Rhodes NP [address] [place] [address] [place] [address] Cardiology 07/07/23 documented as of this encounter
--- OUTSIDE RECORDS SUMMARY | 2024-11-30 08:27 | XMS_ITS | Encounter Summary ---
Author Organization [facility] Address [address] [place] [address] Care Team Providers Care Dental Practitioner Name Role Phone Scot Owen MD Primary Care Provider Unavailable Lukas Bradford MD Primary Care Provider Jan Juárez DO Primary Care Provider UnavailLane Banerjee MD Unavailable Unavailable Beti Greenwood MD Unavailable Juani Rhodes NP Unavailable [phone] Letitia Khalil MD Primary Care Provider Un available [facility], Pcp Primary Care Provider Unavailabl e Encounter Details Date Type Department Care Team Description 06/16/2020 Pt. Non Urgent Medic al Question Adult Medicine - [address] [address] Scot Owen MD Social History Tobacco Use [...] How often do you attend chur or druze services? Never 07/12/2023 Do you belong to any clubs o r organizations such as islam groups, unions, fraternal or athletic groups, or [...] place to sleep or slept in a longterm (including now)? No 07/12/2023 Sex Assigned at Date Recorded Not on file Job Start Date Occupation Industry Not on file Not on file Not on file documented as of this encounter Progress Notes * Anna Kemp M.A. - 06/16/2020 10:59 AM EDTFrom: Neha Aguilarours To: Scot Owen MD Sent: 06/16/2020 10:32 AM EDT Subject: prescription I sent my refill request and it went to a dr i don't know. It didn't go to dr Ellison. documented in this encounter Plan of Treatment Not on file documented as of this encounter Visit Diagnoses Not on filedocumented in this encounter Care Teams Dental Practitioner Relationship Specialty Start Date End Date Scot Owen MD PCP - General Internal Medicine 01/23/1606/30/21 Lukas Bradford MD PCP - General Internal Medicine 07/01/21 08/10/21 Jan Palomino DO PCP - General Internal Medicine 08/11/21 11/16/23 Letitia Khalil MD [address] [place], [place] [address] [place] [address] PCP - General Internal Medicine 11/17/23 06/21/24 [facility], Pcp [address] [place] [address] [place] [address] PCP - General Internal Medicine 06/22/24 Lane Valdes MD Specialist Cardiovascular Disease 01/14/22 Beti Greenwood MD [address] [place] [address] [place] [address] UROGYNECOLOGY 07/07/23 Juani Rhodes NP [address] [place] [address] [facility] [place] [address] Cardiology 07/07/23 documented as of this encounter
--- OUTSIDE RECORDS SUMMARY | 2024-11-30 08:27 | XMS_ITS | Encounter Summary ---
Author Organization [facility] Address [address] [place] [address] Care Team Providers Care Photographic Machine Operator Name Role Phone Samuel Cornelius Primary Care Provider Kristina Gilbert MD Primary Care Provider UnavailScot Hansen MD Primary Care Provider Unavailable Lukas Bradford MD Primary Care Provider Jan Juárez DO Primary Care Provider Unavaila Lane Villalobos MD Unavailable Unavailable Beti Greenwood MD Unavailable Juani Rhodes NP Unavailable [phone] Letitia Khalil MD Primary Care Provider Un available [facility], Pcp Primary Care Provider Unavailabl e Encounter Details Date Type Department Care Team Description 08/18/2015 [facility] Medical Records [address] [place] [id number] Abstract, Provider Social History Tobacco Use Types [...] often do you attend chur ch or scientology services? Never 07/12/2023 Do you belong to any clubs o r organizations such as restoration groups, unions, fraternal or athletic groups, or [...] place to sleep or slept in a skilled nursing (including now)? No 07/12/2023 Sex Assigned at Date Recorded Not on file Job Start Date Occupation Industry Not on file Not on file Not on file documented as of this encounter Plan of Treatment Not on file documented as of this encounter Procedures Procedure Name Priority Date/Time Associated Diagnosis Comments OUTSIDE EMG Routine 08/18/2015 documented in this encounter Results * OUTSIDE EMG (08/18/2015) Provider Abstract PERFORMABLES documented in this encounter Visit Diagnoses Not on filedocumented in this encounter Care Teams Photographic Machine Operator Relationship Specialty Start Date End Date Samuel Cornelius PCP - General 08/29/05 12/24/15 Kristina Chatman MD PCP - General Internal Medicine 12/25/15 01/22/16 Scot Owen MD PCP - General Internal Medicine 01/23/1606/30/21 Lukas Bradford MD PCP - General Internal Medicine 07/01/21 08/10/21 Jan Palomino DO PCP - General Internal Medicine 08/11/21 11/16/23 Letitia Khalil MD [address] [facility] [place] [address] PCP - General Internal Medicine 11/17/23 06/21/24 [facility], Pcp [address] [facility] [place] [address] PCP - General Internal Medicine 06/22/24 Lane Valdes MD Specialist Cardiovascular Disease 01/14/22 Beti Greenwood MD [address] [facility] [place] [address] UROGYNECOLOGY 07/07/23 Juani Rhodes, ISAC [address] [facility] [place] [address] Cardiology 07/07/23 documented as of this encounter
--- OUTSIDE RECORDS SUMMARY | 2024-11-30 08:27 | XMS_ITS | Encounter Summary ---
Author Organization [facility] Address [address] [place] [address] Care Team Providers Care Lorry Weigher Name Role Phone Samuel Cornelius Primary Care Provider Kristina Gilbert MD Primary Care Provider UnavailScot Hansen MD Primary Care Provider Unavailable Lukas Bradford MD Primary Care Provider Jan Juárez DO Primary Care Provider Unavaila Lane Villalobos MD Unavailable Unavailable Beti Greenwood MD Unavailable Juani Rhodes NP Unavailable [phone] Letitia Khalil MD Primary Care Provider Un available [facility], Pcp Primary Care Provider Unavailabl e Encounter Details Date Type Department Care Team Description 04/03/2010 Controlled Substance Contract with [facility] Medical Records [address] [place] [id number] Abstract, Provider Social History Tobacco Use Types Packs/Day Years Used Date Smoking Tobacco: Every Day Cigarettes 0.5 3 Comments:pt started up smoki ng 2 mos ago Alcohol Use Standard Drinks/Week Comments No 0 [...] often do you attend chur ch or scientologist services? Never 07/12/2023 Do you belong to any clubs o r organizations such as evangelical groups, unions, fraternal or athletic groups, or [...] place to sleep or slept in a long term (including now)? No 07/12/2023 Sex Assigned at Date Recorded Not on file Job Start Date Occupation Industry Not on file Not on file Not on file documented as of this encounter Plan of Treatment Not on file documented as of this encounter Visit Diagnoses Not on filedocumented in this encounter Care Teams Lorry Weigher Relationship Specialty Start Date End Date Samuel Cornelius PCP - General 08/29/05 12/24/15 Kristina Chatman MD PCP - General Internal Medicine 12/25/15 01/22/16 Scot Owen MD PCP - General Internal Medicine 01/23/1606/30/21 Lukas Bradford MD PCP - General Internal Medicine 07/01/21 08/10/21 Jan Palomino DO PCP - General Internal Medicine 08/11/21 11/16/23 Letitia Khalil MD [address] [place] [address] [place] [address] PCP - General Internal Medicine 11/17/23 06/21/24 [facility], Pcp [address] [place] [address] [place] [address] PCP - General Internal Medicine 06/22/24 Lane Valdes MD Specialist Cardiovascular Disease 01/14/22 Beti Greenwood MD [address] [facility] [place] [address] UROGYNECOLOGY 07/07/23 Juani Rhodes NP [address] [facility] [place] [address] Cardiology 07/07/23 documented as of this encounter
--- OUTSIDE RECORDS SUMMARY | 2024-11-30 08:27 | XMS_ITS | Encounter Summary ---
Author Organization [facility] Address [address] [place] [address] Care Team Providers Care Explosives Operator Name Role Phone Samuel Cornelius Primary Care Provider UnaKristina Herrera MD Primary Care Provider UnavailScot Hansen MD Primary Care Provider Unavailable Lukas Bradford MD Primary Care Provider Jan Juárez DO Primary Care Provider Unavaila Lane Villalobos MD Unavailable Unavailable Beti Greenwood MD Unavailable Juani Rhodes NP Unavailable [phone] Letitia Khalil MD Primary Care Provider Un available [facility], Pcp Primary Care Provider Unavailabl e Encounter Details Date Type Department Care Team Description 03/13/2014 Pt. Non Urgent Medical Question Adult Medicine - [address] [address] Samuel Cornelius Social History Tobacco Use Types Packs/Day Years [...] often do you attend chur ch or sikh services? Never 07/12/2023 Do you belong to [...] place to sleep or slept in a prison (including now)? No 07/12/2023 Sex Assigned at Date Recorded Not on file Job Start Date Occupation Industry Not on file Not on file Not on file documented as of this encounter Progress Notes * Selene Boyle L.P.N. - 03/14/2014 8:39 AM EDTFrom: Neha Wright To: Samuel Cornelius MD Sent: 03/13/2014 10:50 PM EDT Subject: percoset I spoke with dr Jackson and told me he would send you a letter to increase my dose of percoset to 4 a day. He told me to speak to you since you are the one i have the contract with. I have tried everything to control the pain and nothing is working. I have increased my nerotin, heat, ice and nothinghelps. I use the 4th pill to help me sleep. I haven't been able to sleep well since stopping my regular dose. Sincerely,. Neha Worthy documented in this encounter Plan of Treatment Not on file documented as of this encounter Visit Diagnoses Not on filedocumented in this encounter Care Teams Explosives Operator Relationship Specialty Start Date End Date Samuel Cornelius PCP - General 08/29/05 12/24/15 Kristina Chatman MD PCP - General Internal Medicine 12/25/15 01/22/16 Scot Owen MD PCP - General Internal Medicine 01/23/1606/30/21 Lukas Bradford MD PCP - General Internal Medicine 07/01/21 08/10/21 Jan Palomino DO PCP - General Internal Medicine 08/11/21 11/16/23 Letitia Khalil MD [address] [facility] [place] [address] PCP - General Internal Medicine 11/17/23 06/21/24 [facility], Pcp [address] [place] [address] [place] [address] PCP - General Internal Medicine 06/22/24 Lane Valdes MD Specialist Cardiovascular Disease 01/14/22 Beti Greenwood MD [address] [place] [address] [place] [address] UROGYNECOLOGY 07/07/23 Juani Rhodes NP [address] [facility] [place] [address] Cardiology 07/07/23 documented as of this encounter
--- OUTSIDE RECORDS SUMMARY | 2024-11-30 08:27 | XMS_ITS | Encounter Summary ---
Author Organization [facility] Address [address] [place] [address] Care Team Providers Care Berry Planter Name Role Phone Scot Owen MD Primary Care Provider Unavailable Lukas Bradford MD Primary Care Provider Jan Juárez DO Primary Care Provider UnavailLane Banerjee MD Unavailable Unavailable Beti Greenwood MD Unavailable Juani Rhodes NP Unavailable [phone] Letitia Khalil MD Primary Care Provider Un available [facility], Pcp Primary Care Provider Unavailabl e Encounter Details Date Type Department Care Team Description 03/27/2020 [facility] Medical Records [address] [place] [address] Abstract, Provider Social History Tobacco Use Types [...] How often do you attend chur or yazidism services? Never 07/12/2023 Do you belong to any clubs o r organizations such as synagogue groups, unions, fraternal or athletic groups, or [...] place to sleep or slept in a assisted (including now)? No 07/12/2023 Sex Assigned at Date Recorded Not on file Job Start Date Occupation Industry Not on file Not on file Not on file documented as of this encounter Plan of Treatment Not on file documented as of this encounter Visit Diagnoses Not on filedocumented in this encounter Care Teams Berry Planter Relationship Specialty Start Date End Date Scot Owen MD PCP - General Internal Medicine 01/23/1606/30/21 Lukas Bradford MD PCP - General Internal Medicine 07/01/21 08/10/21 Jan Palomino DO PCP - General Internal Medicine 08/11/21 11/16/23 Letitia Khalil MD [address] [place] [address] [facility]rogynecologTri[place] [address] PCP - General Internal Medicine 11/17/23 06/21/24 [facility], Pcp [address] [place] [address] UrogynecologLex[facility] [place] [address] PCP - General Internal Medicine 06/22/24 Lane Valdes MD Specialist Cardiovascular Disease 01/14/22 Beti Greenwood MD [address] [place] [address] UrogynecologLex[facility] [place] [address] UROGYNECOLOGY 07/07/23 Juani Rhodes, ISAC [address] [facility] [place] [address] Cardiology 07/07/23 documented as of this encounter
--- OUTSIDE RECORDS SUMMARY | 2024-11-30 08:27 | XMS_ITS | Encounter Summary ---
Author Organization [facility] Address [address] [place] [address] Care Team Providers Care Manufacturing Team Leader Name Role Phone Beti Greenwood MD Unavailable Juani Rhodes NP Unavailable [phone] Letitia Khalil MD Primary Care Provider Un available [facility], Pcp Primary Care Provider Unavailabl e Encounter Details Date Type Department Care Team Description 12/02/2023 Fishing Rod Assembler Report Medical Records [address] [place] [address] Gumaro Vazquez MD Social History Tobacco Use [...] often do you attend chur ch or denominational services? Never 07/12/2023 Do you belong to any clubs o r organizations such as religious groups, unions, fraternal or athletic groups, or [...] on filedocumented in this encounter Care Teams Manufacturing Team Leader Relationship Specialty Start Date End Date Letitia Khalil MD [address] [facility] [place] [address] PCP - General Internal Medicine 11/17/23 06/21/24 [facility], Pcp [address] [facility] [place] [address] PCP - General Internal Medicine 06/22/24 Beti Greenwood MD [address] [place] [address] UROGYNECOLOGY 07/07/23 Juani Rhodes NP [address] [facility] [place] [address] Cardiology 07/07/23 documented as of this encounter
--- OUTSIDE RECORDS SUMMARY | 2024-11-30 08:27 | XMS_ITS | Encounter Summary ---
Author Organization [facility] Address [address] [place] [address] Care Team Providers Care Assistant Federal Public Defender Name Role Phone Scot Owen MD Primary Care Provider Unavailable Lukas Bradford MD Primary Care Provider Jan Juárez DO Primary Care Provider UnavailLane Banerjee MD Unavailable Unavailable Beti Greenwood MD Unavailable Juani Rhodes NP Unavailable Letitia Khalil MD Primary Care Provider Un available [facility], Pcp Primary Care Provider Unavailabl e Encounter Details Date Type Department Care Team Description 02/25/2020 Pt. Non Urgent Medic al Question Adult Medicine - [address] [address] Scot Owen MD Social History Tobacco Use [...] How often do you attend chur or cheondoism services? Never 07/12/2023 Do you belong to any clubs o r organizations such as scientologist groups, unions, fraternal or athletic groups, or [...] place to sleep or slept in a [place] health care facility (including now)? No 07/12/2023 Sex Assigned at Date Recorded Not on file Job Start Date Occupation Industry Not on file Not on file Not on file documented as of this encounter Progress Notes * Ruby Kaur M.A. - 02/25/2020 12:11 PM EDTFrom: Neha Wright To: Scot Owen MD Sent: 02/25/2020 12:05 PM EDT Subject: prescription Is my prescription ready for pick - up ? documented in this encounter Plan of Treatment Not on file documented as of this encounter Visit Diagnoses Not on filedocumented in this encounter Care Teams Assistant Federal [employer] Relationship Specialty Start Date End Date Scot Owen MD PCP - General Internal Medicine 01/23/1606/30/21 Lukas Bradford MD PCP - General Internal Medicine 07/01/21 08/10/21 Jan Palomino DO PCP - General Internal Medicine 08/11/21 11/16/23 Letitia Khalil MD [address] [facility] [place] [address] PCP - General Internal Medicine 11/17/23 06/21/24 [facility], Pcp [address] [facility] UrogynecologLexington [place] [address] PCP - General Internal Medicine 06/22/24 Lane Valdes MD Specialist Cardiovascular Disease 01/14/22 Beti Greenwood MD [address] [facility]Washington [facility] [place] [address] UROGYNECOLOGY 07/07/23 Juani Rhodes, ISAC [address] [facility] UrogynecologLexington [place] [address] Cardiology 07/07/23 documented as of this encounter
--- OUTSIDE RECORDS SUMMARY | 2024-11-30 08:27 | XMS_ITS | Encounter Summary ---
Author Organization [facility] Address [address] [place] [address] Care Team Providers Care Designer Name Role Phone Scot Owen MD Primary Care Provider Unavailable Lukas Bradford MD Primary Care Provider Jan Juárez DO Primary Care Provider UnavailLane Banerjee MD Unavailable Unavailable Beti Greenwood MD Unavailable Juani Rhodes NP Unavailable [phone] Letitia Khalil MD Primary Care Provider Un available [facility], Pcp Primary Care Provider Unavailabl e Encounter Details Date Type Department Care Team Description 04/24/2020 [facility] Medical Records [address] [place] [address] Abstract, Provider Social History Tobacco Use Types [...] How often do you attend chur or shinto services? Never 07/12/2023 Do you belong to any clubs o r organizations such as pentecostal groups, unions, fraternal or athletic groups, or [...] place to sleep or slept in a senior care (including now)? No 07/12/2023 Sex Assigned at Date Recorded Not on file Job Start Date Occupation Industry Not on file Not on file Not on file documented as of this encounter Plan of Treatment Not on file documented as of this encounter Visit Diagnoses Not on filedocumented in this encounter Care Teams Designer Relationship Specialty Start Date End Date Scot Owen MD PCP - General Internal Medicine 01/23/1606/30/21 Lukas Bradford MD PCP - General Internal Medicine 07/01/21 08/10/21 Jan Palomino DO PCP - General Internal Medicine 08/11/21 11/16/23 Letitia Khalil MD [address] [place] [address] [facility]olog[facility] [place] [address] PCP - General Internal Medicine 11/17/23 06/21/24 [facility], Pcp [address] [place] [address] UrogynecologMuhlenberg [facility] [place] [address] PCP - General Internal Medicine 06/22/24 Lane Valdes MD Specialist Cardiovascular Disease 01/14/22 Beti Greenwood MD [address] [place] [address] UrogynecologMuhlenberg [facility] [place] [address] UROGYNECOLOGY 07/07/23 Juani Rhodes, ISAC [address] [facility] [place] [address] Cardiology 07/07/23 documented as of this encounter
--- OUTSIDE RECORDS SUMMARY | 2024-11-30 08:27 | XMS_ITS | Encounter Summary ---
Author Organization [facility] Address [address] [place] [address] Care Team Providers Care Subeditor Name Role Phone Scot Owen MD Primary Care Provider Unavailable Lukas Bradford MD Primary Care Provider Jan Juárez DO Primary Care Provider UnavailLane Banerjee MD Unavailable Unavailable Beti Greenwood MD Unavailable Juani Rhodes NP Unavailable [phone] Letitia Khalil MD Primary Care Provider Un available [facility], Pcp Primary Care Provider Unavailabl e Encounter Details Date Type Department Care Team Description 04/21/2020 Pt. Non Urgent Medic al Question Adult Medicine - [address] [address] Scot Owen MD Social History Tobacco Use [...] How often do you attend chur or voodoo services? Never 07/12/2023 Do you belong to any clubs o r organizations such as gnosticist groups, unions, fraternal or athletic groups, or [...] Progress Notes * Anna Kemp M.A. - 04/21/2020 9:40 AM EDTFrom: Neha Wright To: Scot Owen MD Sent: 04/21/2020 7:35 AM EDT Subject: prescription Do I go to [place] to parts picker my prescription? documented in this encounter Plan of Treatment Not on file documented as of this encounter Visit Diagnoses Not on filedocumented in this encounter Care Teams Subeditor Relationship Specialty Start Date End Date Scot Owen MD PCP - General Internal Medicine 01/23/1606/30/21 Lukas Bradford MD PCP - General Internal Medicine 07/01/21 08/10/21 Jan Palomino DO PCP - General Internal Medicine 08/11/21 11/16/23 Letitia Khalil MD [address] [facility] [place] [address] PCP - General Internal Medicine 11/17/23 06/21/24 [facility], Pcp [address] [facility] [place] [address] PCP - General Internal Medicine 06/22/24 Lane Valdes MD Specialist Cardiovascular Disease 01/14/22 Beti Greenwood MD [address] [facility]ro[facility] [place] [address] UROGYNECOLOGY 07/07/23 Juani Rhodes, ISAC [address] [facility]ologB[facility] [place] [address] Cardiology 07/07/23 documented as of this encounter
--- OUTSIDE RECORDS SUMMARY | 2024-11-30 08:27 | XMS_ITS | Encounter Summary ---
Author Organization [facility] Address [address] [place] [address] Care Team Providers Care Research Instructor Name Role Phone Scot Owen MD Primary Care Provider Unavailable Lukas Bradford MD Primary Care Provider Jan Juárez DO Primary Care Provider UnavailLane Banerjee MD Unavailable Unavailable Beti Greenwood MD Unavailable Juani Rhodes NP Unavailable [phone] Letitia Khalil MD Primary Care Provider Un available [facility], Pcp Primary Care Provider Unavailabl e Encounter Details Date Type Department Care Team Description 07/12/2019 Orders Only Medical Records [address] [place] [address] Scot Owen MD Social History Tobacco Use [...] often do you attend chur ch or baptist services? Never 07/12/2023 Do you belong to any clubs o r organizations such as buddhism groups, unions, fraternal or athletic groups, or [...] place to sleep or slept in a halfway (including now)? No 07/12/2023 Sex Assigned at Date Recorded Not on file Job Start Date Occupation Industry Not on file Not on file Not on file documented as of this encounter Plan of Treatment Not on file documented as of this encounter Procedures Procedure Name Priority Date/Time Associated Diagnosis Comments OUTSIDE ECHO Routine 07/10/2019 documented in this encounter Results * OUTSIDE ECHO (07/10/2019) Scot Owen MD CARDIOLOGY documented in this encounter Visit Diagnoses Not on filedocumented in this encounter Care Teams Research Instructor Relationship Specialty Start Date End Date Scot Owen MD PCP - General Internal Medicine 01/23/1606/30/21 Lukas Bradford MD PCP - General Internal Medicine 07/01/21 08/10/21 Jan Palomino DO PCP - General Internal Medicine 08/11/21 11/16/23 Letitia Khalil MD [address] [place] [address] [place] [address] PCP - General Internal Medicine 11/17/23 06/21/24 [facility], [address] [place] [address] PCP - General Internal Medicine 06/22/24 Lane Valdes MD Specialist Cardiovascular Disease 01/14/22 Beti Greenwood MD [address] [facility] [place] [address] UROGYNECOLOGY 07/07/23 Juani Rhodes NP [address] [facility] [place] [address] Cardiology 07/07/23 documented as of this encounter
--- OUTSIDE RECORDS SUMMARY | 2024-11-30 08:27 | XMS_ITS | Encounter Summary ---
Author Organization [facility] Address [address] [place] [address] Care Team Providers Care Health Care Sanitary Technician Name Role Phone Jan Palomino DO Primary Care Provider UnavailBeti Garcia MD Unavailable Juani Rhodes NP Unavailable [phone] Letitia Khalil MD Primary Care Provider Un available [facility], Pcp Primary Care Provider Unavailabl e Encounter Details Date Type Department Care Team Description 07/13/2023 Telephone Adult Medicine - [address] [address] Jan Palomino DO Social History Tobacco Use [...] often do you attend chur ch or samaritan services? Never 07/12/2023 Do you belong to any clubs o r organizations such as sikh groups, unions, fraternal or athletic groups, or [...] encounter Miscellaneous Notes * Telephone Encounter - Kimberley John M.A. - 07/13/2023 2:45 PM EST Pt was informed of this message * Telephone Encounter - Kimberley John M.A. - 07/13/2023 2:45 PM EST ----- Message from Jan Palomino DO sent at 07/13/2023 1:40 PM EST ----- Please review documented in this encounter Plan of Treatment Not on file documented as of this encounter Visit Diagnoses Not on filedocumented in this encounter Care Teams Health Care Sanitary Technician Relationship Specialty Start Date End Date Jan Palomino DO PCP - General Internal Medicine 08/11/21 11/16/23 Letitia Khalil MD [facility] [place] [address] PCP - General Internal Medicine 11/17/23 06/21/24 [facility], Pcp 444 [facility] [place] [address] PCP - General Internal Medicine 06/22/24 Beti Greenwood MD 444 [facility] [place] [address] UROGYNECOLOGY 07/07/23 Juani Rhodes, ISAC 444 [facility]gynecologA[facility] [place] [address] Cardiology 07/07/23 documented as of this encounter
--- OUTSIDE RECORDS SUMMARY | 2024-11-30 08:27 | XMS_ITS | Encounter Summary ---
Author Organization [facility] [employer] [facility] Address [address] [place] [address] Care Team Providers Care Grapple Crew Leader Name Role Phone Scot Owen MD Primary Care Provider Unavailable Lukas Bradford MD Primary Care Provider Jan Juárez DO Primary Care Provider UnavailLane Banerjee MD Unavailable Unavailable Beti Greenwood MD Unavailable Juani Rhodes NP Unavailable [phone] Letitia Khalil MD Primary Care Provider Un available [facility], Pcp Primary Care Provider Unavailabl e Encounter Details Date Type Department Care Team Description 08/11/2020 Refill Adult Medicine - [place] [address] [place] [address] Magno Willoughby MD [address] [place] [address] Social History Tobacco Use Types Packs/Day Years [...] How often do you attend chur or scientologist services? Never 07/12/2023 Do you belong to any clubs o r organizations such as orthodoxy groups, unions, fraternal or athletic groups, or [...] on filedocumented in this encounter Care Teams Grapple Crew Leader Relationship Specialty Start Date End Date Scot Owen MD PCP - General Internal Medicine 01/23/1606/30/21 Lukas Bradford MD PCP - General Internal Medicine 07/01/21 08/10/21 Jan Palomino DO PCP - General Internal Medicine 08/11/21 11/16/23 Letitia Khalil MD [address] [place], [place] [address] [address] PCP - General Internal Medicine 11/17/23 06/21/24 [facility], Pcp [address] [place] [address] [place] [address] PCP - General Internal Medicine 06/22/24 Lane Valdes MD Specialist Cardiovascular Disease 01/14/22 Beti Greenwood MD [address] [place], [place] [address] [address] UROGYNECOLOGY 07/07/23 Juani Rhodes, PHARMACY TECHNICIAN PER DIEM 444 [facility] [place] [address] Cardiology 07/07/23 documented as of this encounter
--- OUTSIDE RECORDS SUMMARY | 2024-11-30 08:27 | XMS_ITS | Encounter Summary ---
Author Organization [facility] Address [address] [place] [address] Care Team Providers Care Feed Crusher Name Role Phone Samuel Cornelius Primary Care Provider UnaKristina Herrera MD Primary Care Provider UnavailScot Hansen MD Primary Care Provider Unavailable Lukas Bradford MD Primary Care Provider Jan Juárez DO Primary Care Provider Unavaila Lane Villalobos MD Unavailable Unavailable Beti Greenwood MD Unavailable Juani Rhodes NP Unavailable [phone] Letitia Khalil MD Primary Care Provider Un available [facility], Pcp Primary Care Provider Unavailabl e Encounter Details Date Type Department Care Team Description 04/05/2014 Pt. Non Urgent Medical Question Adult Medicine - [address] [address] Samuel Cornelius Social History Tobacco Use Types [...] often do you attend chur ch or christianity services? Never 07/12/2023 Do you belong to [...] Progress Notes * Selene Boyle L.P.N. - 04/05/2014 3:33 PM EDTFrom: Neha Wright To: Samuel Cornelius MD Sent: 04/05/2014 3:31 PM EDT Subject: Back pain Dr Cornelius, Dr Jackson is prescribing me 4 percosets a day. He has a prescription ready for me [place]. Does my contract go through him. He said I should be taking 4 pills a day. I was taking 4and i had my pain under control. I used the 4 th pill at bedtime to sleep. I haven't been able to sleep with the current prescription. I know i'm under contract and have to notify you of any changes.He said he told you i should be taking 4 pills a day, As the injections aren't helping me. Thank you Neha Wright documented in this encounter Plan of Treatment Not on file documented as of this encounter Visit Diagnoses Not on filedocumented in this encounter Care Teams Feed Crusher Relationship Specialty Start Date End Date Samuel Cornelius PCP - General 08/29/05 12/24/15 Kristina Chatman MD PCP - General Internal Medicine 12/25/15 01/22/16 Scot Owen MD PCP - General Internal Medicine 01/23/1606/30/21 Lukas Bradford MD PCP - General Internal Medicine 07/01/21 08/10/21 Jan Palomino DO PCP - General Internal Medicine 08/11/21 11/16/23 Letitia Khalil MD [address] [place] [address] [place] [address] PCP - General Internal Medicine 11/17/23 06/21/24 [facility], [address] [place] [address] PCP - General Internal Medicine 06/22/24 Lane Valdes MD Specialist Cardiovascular Disease 01/14/22 Beti Greenwood MD 4 [facility] [place] [address] UROGYNECOLOGY 07/07/23 Juani Rhodes NP 4 [facility] [place] [address] Cardiology 07/07/23 documented as of this encounter
--- OUTSIDE RECORDS SUMMARY | 2024-11-30 08:27 | XMS_ITS | Encounter Summary ---
Author Organization [facility] Address [address] [place] [address] Care Team Providers Care Spring Crater Name Role Phone Jan Palomino DO Primary Care Provider UnavailBeti Garcia MD Unavailable Juani Rhodes NP Unavailable [phone] Letitia Khalil MD Primary Care Provider Un available [facility], Pcp Primary Care Provider Unavailabl e Encounter Details Date Type Department Care Team Description 10/07/2023 Cement Contractor Report Medical Records [address] [place] [id number] [place] [address] Social History Tobacco Use Types Packs/Day Years [...] often do you attend chur ch or orthodoxy services? Never 07/12/2023 Do you [...] on filedocumented in this encounter Care Teams Spring Crater Relationship Specialty Start Date End Date Jan Palomino, PCP - General Internal Medicine 08/11/21 11/16/23 Letitia Khalil MD [address] [place] [address] [place] [address] PCP - General Internal Medicine 11/17/23 06/21/24 [facility], Pcp [address] [place] [address] PCP - General Internal Medicine 06/22/24 Beti Greenwood MD [address] [place], [place] [address] [address] UROGYNECOLOGY 07/07/23 Juani Rhodes NP 444 [facility] [place] [address] Cardiology 07/07/23 documented as of this encounter
--- OUTSIDE RECORDS SUMMARY | 2024-11-30 08:27 | XMS_ITS | Encounter Summary ---
Author Organization [facility] [employer] [facility] Address [address] [place] [address] Care Team Providers Care Milanese Knitting Machine Operator Name Role Phone Scot Owen MD Primary Care Provider Unavailable Lukas Bradford MD Primary Care Provider Jan Juárez DO Primary Care Provider UnavailLane Banerjee MD Unavailable Unavailable Beti Greenwood MD Unavailable Juani Rhodes NP Unavailable [phone] Letitia Khalil MD Primary Care Provider Un available [facility], Pcp Primary Care Provider Unavailabl e Encounter Details Date Type Department Care Team Description 11/04/2019 Refill Adult Medicine - [address] [address] Scot Owen MD Social History Tobacco Use [...] often do you attend chur ch or church services? Never 07/12/2023 Do you belong to any clubs o r organizations such as bahai groups, unions, fraternal or athletic groups, or [...] place to sleep or slept in a mcc (including now)? No 07/12/2023 Sex Assigned at Date Recorded Not on file Job Start Date Occupation Industry Not on file Not on file Not on file documented as of this encounter Miscellaneous Notes * Telephone Encounter - Anna Kemp M.A. - 11/05/2019 11:09 AM EDT ppu * Telephone Encounter - Anna Kemp M.A. - 11/05/2019 9:21 AM EDT Last appt-07/30/19 Next appt-11/05/19 [facility] to covering Controlled substance contract and last issue date of medication reviewed. Patient is due for medication. Lab Results Component Value Date URBENZO NONE DETECTED 10/26/2018 UROPIATES POSITIVE 10/26/2018 URBARBITUATE NONE DETECTED 10/26/2018 PAINAMPHETAM NONE DETECTED 10/26/2018 PAINCOCAINE NONE DETECTED 10/26/2018 PAINCANNABIN NONE DETECTED 10/26/2018 documented in this encounter Plan of Treatment Not on file documented as of this encounter Visit Diagnoses Not on filedocumented in this encounter Care Teams Milanese Knitting Machine Operator Relationship Specialty Start Date End Date Scot Owen MD PCP - General Internal Medicine 01/23/1606/30/21 Lukas Bradford MD PCP - General Internal Medicine 07/01/21 08/10/21 Jan Palomino DO PCP - General Internal Medicine 08/11/21 11/16/23 Letitia Khalil MD [address] [place] [address] [place] [address] PCP - General Internal Medicine 11/17/23 06/21/24 [facility] [address] [place] [address] PCP - General Internal Medicine 06/22/24 Lane Valdes MD Specialist Cardiovascular Disease 01/14/22 Beti Greenwood MD 4 [facility] [place] [address] UROGYNECOLOGY 07/07/23 Juani Rhodes NP 4 [facility] [place] [address] Cardiology 07/07/23 documented as of this encounter
--- OUTSIDE RECORDS SUMMARY | 2024-11-30 08:27 | XMS_ITS | Encounter Summary ---
Author Organization [facility] Address [address] [place] [address] Care Team Providers Care Rate Clerk Passenger Name Role Phone Samuel Cornelius Primary Care Provider Kristina Gilbert MD Primary Care Provider UnavailScot Hansen MD Primary Care Provider Unavailable Lukas Bradford MD Primary Care Provider Jan Juárez DO Primary Care Provider Unavaila Lane Villalobos MD Unavailable Unavailable Beti Greenwood MD Unavailable Juani Rhodes NP Unavailable [phone] Letitia Khalil MD Primary Care Provider Un available [facility], Pcp Primary Care Provider Unavailabl e Encounter Details Date Type Department Care Team Description 05/07/2015 Transfer Records Medical Records [address] [place] [address] Abstract, Provider Social History Tobacco Use Types [...] often do you attend chur ch or episcopal services? Never 07/12/2023 Do you belong to any clubs o r organizations such as hinduism groups, unions, fraternal or athletic groups, or [...] on filedocumented in this encounter Care Teams Rate Clerk Passenger Relationship Specialty Start Date End Date Samuel Cornelius PCP - General 08/29/05 12/24/15 Kristina Chatman MD PCP - General Internal Medicine 12/25/15 01/22/16 Scot Owen MD PCP - General Internal Medicine 01/23/1606/30/21 Lukas Bradford MD PCP - General Internal Medicine 07/01/21 08/10/21 Jan Palomino DO PCP - General Internal Medicine 08/11/21 11/16/23 Letitia Khalil MD [address] [place] [address] [place] [address] PCP - General Internal Medicine 11/17/23 06/21/24 [facility], Pcp [address] [place] [address] T[place] [address] PCP - General Internal Medicine 06/22/24 Lane Valdes MD Specialist Cardiovascular Disease 01/14/22 Beti Greenwood MD 444 [facility] [place] [address] UROGYNECOLOGY 07/07/23 Juani Rhodes NP 444 [facility] [place] [address] Cardiology 07/07/23 documented as of this encounter
--- OUTSIDE RECORDS SUMMARY | 2024-11-30 08:27 | XMS_ITS | Encounter Summary ---
Author [facility] Address [address] [place] [address] Care Team Providers Care Instructor Weaving Name Role Phone Scot Owen MD Primary Care Provider Unavailable Lukas Bradford MD Primary Care Provider Jan Juárez DO Primary Care Provider UnavailLane Banerjee MD Unavailable Unavailable Beti Greenwood MD Unavailable Juani Rhodes NP Unavailable [phone] Letitia Khalil MD Primary Care Provider Un available [facility], Pcp Primary Care Provider Unavailabl e Encounter Details Date Type Department Care Team Description 10/11/2019 [facility] Medical Records [address] [place] [address] Abstract, Provider Social History Tobacco Use Types [...] How often do you attend chur or protestant services? Never 07/12/2023 Do you belong to any clubs o r organizations such as spiritism groups, unions, fraternal or athletic groups, or [...] on filedocumented in this encounter Care Teams Instructor Weaving Relationship Specialty Start Date End Date Scot Owen MD PCP - General Internal Medicine 01/23/1606/30/21 Lukas Bradford MD PCP - General Internal Medicine 07/01/21 08/10/21 Jan Palomino DO PCP - General Internal Medicine 08/11/21 11/16/23 Letitia Khalil MD [address] [place] [address] [place] [address] PCP - General Internal Medicine 11/17/23 06/21/24 [facility], Pcp [address] [place] [address] UrogynecologRobley Rex [place] [address] PCP - General Internal Medicine 06/22/24 Lane Valdes MD Specialist Cardiovascular Disease 01/14/22 Beti Greenwood MD [address] [place] [address] UrogynecologRobley Rex [place] [address] UROGYNECOLOGY 07/07/23 Juani Rhodes, ISAC 444 [facility] [place] [address] Cardiology 07/07/23 documented as of this encounter
--- OUTSIDE RECORDS SUMMARY | 2024-11-30 08:27 | XMS_ITS | Encounter Summary ---
Author Organization [facility] Address [address] [place] [address] Care Team Providers Care Testing Coordinator Name Role Phone Jan Palomino DO Primary Care Provider Unavaila Beti Soto MD Unavailable Juani Rhodes NP Unavailable [phone] Letitia Khalil MD Primary Care Provider Un available [facility], Pcp Primary Care Provider Unavailabl e Reason for Visit * Reason Comments E-prescribe Rx Request Encounter Details Date Type Department Care Team Description 10/11/2023 Refill Adult Medicine [address] [address] Jan Palomino DO E-prescribe Rx Request Social History Tobacco Use Types Packs/Day Years [...] How often do you attend chur or restorationism services? Never 07/12/2023 Do you belong to any clubs o r organizations such as jain groups, unions, fraternal or athletic groups, or [...] place to sleep or slept in a alf (including now)? No 07/12/2023 Sex Assigned at Date Recorded Not on file Job Start Date Occupation Industry Not on file Not on file Not on file documented as of this encounter Plan of Treatment Not on file documented as of this encounter Visit Diagnoses Diagnosis Anxiety Anxiety state, unspecified documented in this encounter Care Teams Testing Coordinator Relationship Specialty Start Date End Date Jan Palomino, PCP - General Internal Medicine 08/11/21 11/16/23 Letitia Khalil MD [address] [place] [address] PCP - General Internal Medicine 11/17/23 06/21/24 [facility], Pcp [address] [place] [address] PCP - General Internal Medicine 06/22/24 Beti Greenwood MD [address] [place] [place] [address] UROGYNECOLOGY 07/07/23 Juani Rhodes NP 444 [place] [address] Cardiology 07/07/23 documented as of this encounter
--- OUTSIDE RECORDS SUMMARY | 2024-11-30 08:27 | XMS_ITS | Encounter Summary ---
Author Organization [facility] Address [address] [place] [address] Care Team Providers Care Rotor Plate Washer Name Role Phone Scot Owen MD Primary Care Provider Unavailable Lukas Bradford MD Primary Care Provider aJn Juárez DO Primary Care Provider UnavailLane Banerjee MD Unavailable Unavailable Beti Greenwood MD Unavailable Juani Rhodes NP Unavailable [phone] Letitia Khalil MD Primary Care Provider Un available [facility], Pcp Primary Care Provider Unavailabl e Encounter Details Date Type Department Care Team Description 01/31/2020 [facility] Records [address] [place] [address] Abstract, Provider Social History Tobacco Use Types [...] How often do you attend chur or latter-day services? Never 07/12/2023 Do you belong to any clubs o r organizations such as baptist groups, unions, fraternal or athletic groups, or [...] on filedocumented in this encounter Care Teams Rotor Plate Washer Relationship Specialty Start Date End Date Scot Owen MD PCP - General Internal Medicine 01/23/1606/30/21 Lukas Bradford MD PCP - General Internal Medicine 07/01/21 08/10/21 Jan Palomino DO PCP - General Internal Medicine 08/11/21 11/16/23 Letitia Khalil MD [address] [place] [address] [place] [address] PCP - General Internal Medicine 11/17/23 06/21/24 [facility], Pcp [address] [place] [address] Urogynecolog[place] [address] PCP - General Internal Medicine 06/22/24 Lane Valdes MD Specialist Cardiovascular Disease 01/14/22 Beti Greenwood MD [address] [place] [address] Urogynecolog[place] [address] UROGYNECOLOGY 07/07/23 Juani Rhodes, ISAC 444 [facility] [place] [address] Cardiology 07/07/23 documented as of this encounter
--- OUTSIDE RECORDS SUMMARY | 2024-11-30 08:27 | XMS_ITS | Encounter Summary ---
Author Organization [facility] Address [address] [place] [address] Care Team Providers Care Nursing Program Manager Name Role Phone Jan Palomino DO Primary Care Provider Unavaila Beti Soto MD Unavailable Juani Rhodes NP Unavailable [phone] Letitia Khalil MD Primary Care Provider Un available [facility], Pcp Primary Care Provider Unavailabl e Encounter Details Date Type Department Care Team Description 09/05/2023 Bingo Floater Report Medical Records [address] [place] [address] Dilcia Meadows NP Social History Tobacco Use [...] often do you attend chur ch or yarsani services? Never 07/12/2023 Do you belong to [...] place to sleep or slept in a care home (including now)? No 07/12/2023 Sex Assigned at Date Recorded Not on file Job Start Date Occupation Industry Not on file Not on file Not on file documented as of this encounter Plan of Treatment Not on file documented as of this encounter Visit Diagnoses Not on filedocumented in this encounter Care Teams Nursing Program Manager Relationship Specialty Start Date End Date Jan Palomino, PCP - General Internal Medicine 08/11/21 11/16/23 Letitia Khalil MD [address] [place] [address] [place] [address] PCP - General Internal Medicine 11/17/23 06/21/24 [facility], Pcp [address] [place] [address] PCP - General Internal Medicine 06/22/24 Beti Greenwood MD [address] [place], [place] [address], [place] [address] UROGYNECOLOGY 07/07/23 Juani Rhodes NP 444 [facility] [place] [address] Cardiology 07/07/23 documented as of this encounter
--- OUTSIDE RECORDS SUMMARY | 2024-11-30 08:27 | XMS_ITS | Encounter Summary ---
Author Organization [facility] [employer] [facility] Address [address] [place] [address] Care Team Providers Care Machine Wiper Name Role Phone Scot Owen MD Primary Care Provider Unavailable Lukas Bradford MD Primary Care Provider Jan Juárez DO Primary Care Provider UnavailLane Banerjee MD Unavailable Unavailable Beti Greenwood MD Unavailable Juani Rhodes NP Unavailable Letitia Khalil MD Primary Care Provider Un available [facility], Pcp Primary Care Provider Unavailabl e Encounter Details Date Type Department Care Team Description 10/06/2019 Refill Adult Medicine - [address] [address] Scot Owen MD Social History Tobacco Use [...] any clubs o r organizations such as christian groups, unions, fraternal or athletic groups, or [...] Telephone Encounter - Anna Kemp M.A. - 10/08/2019 1:45 PM EST ppu * Telephone Encounter - Anna Kemp M.A. - 10/08/2019 10:06 AM EST Last appt- 07/30/19 Next appt-11/05/19 [employer] to covering Controlled substance contract and last issue date of medication reviewed. Patient is due for medication. Lab Results Component Value Date URBENZO NONE DETECTED 10/26/2018 UROPIATES POSITIVE 10/26/2018 URBARBITUATE NONE DETECTED 10/26/2018 PAINAMPHETAM NONE DETECTED 10/26/2018 URAMPHETAMIN NEGATIVE 10/20/2017 PAINCOCAINE NONE DETECTED 10/26/2018 URCOCAINE NEGATIVE 10/20/2017 PAINCANNABIN NONE DETECTED 10/26/2018 URMARIJUANA NEGATIVE 10/20/2017 documented in this encounter Plan of Treatment Not on file documented as of this encounter Visit Diagnoses Not on filedocumented in this encounter Care Teams Machine Wiper Relationship Specialty Start Date End Date Scot Owen MD PCP - General Internal Medicine 01/23/1606/30/21 Lukas Bradford MD PCP - General Internal Medicine 07/01/21 08/10/21 Jan Palomino DO PCP - General Internal Medicine 08/11/21 11/16/23 Letitia Khalil MD [address] [place] [address] [place] [address] PCP - General Internal Medicine 11/17/23 06/21/24 [facility] Pcp [address] [place] [address] [place] [address] PCP - General Internal Medicine 06/22/24 Lane Valdes MD Specialist Cardiovascular Disease 01/14/22 Beti Greenwood MD [address] [place] [address] [place] [address] UROGYNECOLOGY 07/07/23 Juani Rhodes NP 4 [facility] [place] [address] Cardiology 07/07/23 documented as of this encounter
--- OUTSIDE RECORDS SUMMARY | 2024-11-30 08:27 | XMS_ITS | Encounter Summary ---
Author Organization [facility] Address [address] [place] [address] Care Team Providers Care Hand Bunch Maker Name Role Phone Scot Owen MD Primary Care Provider Unavailable Lukas Bradford MD Primary Care Provider Jan Juárez DO Primary Care Provider UnavailLane Banerjee MD Unavailable Unavailable Beti Greenwood MD Unavailable Juani Rhoeds NP Unavailable [phone] Letitia Khalil MD Primary Care Provider Un available [facility], Pcp Primary Care Provider Unavailabl e Encounter Details Date Type Department Care Team Description 09/09/2019 Refill Adult Medicine - [address] [address] Scot Owen MD Social History Tobacco Use [...] Telephone Encounter - Anna Kemp M.A. - 09/10/2019 12:02 PM EST PPU * Telephone Encounter - Anna Kemp M.A. - 09/10/2019 10:49 AM EST Last appt- 07/30/19 Next appt- 11/05/19 [facility] to covering Controlled substance contract and [...] on filedocumented in this encounter Care Teams Hand Bunch Maker Relationship Specialty Start Date End Date Scot Owen MD PCP - General Internal Medicine 01/23/1606/30/21 Lukas Bradford MD PCP - General Internal Medicine 07/01/21 08/10/21 Jan Paloimno DO PCP - General Internal Medicine 08/11/21 11/16/23 Letitia Khalil MD [address] [facility] [place] [address] PCP - General Internal Medicine 11/17/23 06/21/24 [facility], Pcp [address] [place] [address] [place] [address] PCP - General Internal Medicine 06/22/24 Lane Valdes MD Specialist Cardiovascular Disease 01/14/22 Beti Greenwood MD [address] [facility] [place] [address] UROGYNECOLOGY 07/07/23 Juani Rhodes NP [address] [facility] [place] [address] Cardiology 07/07/23 documented as of this encounter
--- OUTSIDE RECORDS SUMMARY | 2024-11-30 08:27 | XMS_ITS | Encounter Summary ---
Author Organization [facility] Address [address] [place] [address] Care Team Providers Care Station Attendant Name Role Phone Samuel Cornelius Primary Care Provider Kristina Gilbert MD Primary Care Provider UnavailScot Hansen MD Primary Care Provider Unavailable Lukas Bradford MD Primary Care Provider Jan Juárez DO Primary Care Provider Unavaila Lane Villalobos MD Unavailable Unavailable Beti Greenwood MD Unavailable Juani Rhodes NP Unavailable [phone] Letitia Khalil MD Primary Care Provider Un available [facility], Pcp Primary Care Provider Unavailabl e Encounter Details Date Type Department Care Team Description 10/10/2014 SLIP COVER SEWER/[facility] Report Medical Records [address] [place] [address] Abstract, Provider Social History Tobacco Use Types [...] often do you attend chur ch or spiritism services? Never 07/12/2023 Do you belong to any clubs o r organizations such as restorationist groups, unions, fraternal or athletic groups, or [...] on filedocumented in this encounter Care Teams Station Attendant Relationship Specialty Start Date End Date Samuel Cornelius PCP - General 08/29/05 12/24/15 Kristina Chatman MD PCP - General Internal Medicine 12/25/15 01/22/16 Scot Owen MD PCP - General Internal Medicine 01/23/1606/30/21 Lukas Bradford MD PCP - General Internal Medicine 07/01/21 08/10/21 Jan Palomino DO PCP - General Internal Medicine 08/11/21 11/16/23 Letitia Khalil MD [address] [place], [place] [address] [address] PCP - General Internal Medicine 11/17/23 06/21/24 [facility], Pcp [address] [place] [address] [place] [address] PCP - General Internal Medicine 06/22/24 Lane Valdes MD Specialist Cardiovascular Disease 01/14/22 Beti Greenwood MD [address] [facility] Uro[place] [address] UROGYNECOLOGY 07/07/23 Juani Rhodes NP [address] [facility] [place] [address] Cardiology 07/07/23 documented as of this encounter
--- OUTSIDE RECORDS SUMMARY | 2024-11-30 08:27 | XMS_ITS | Encounter Summary ---
Author Organization [facility] Address [address] [place] [address] Care Team Providers Care Booth Manager Name Role Phone LeobardokennethSamuel Primary Care Provider UnaKristina Herrera MD Primary Care Provider UnavailScot Hansen MD Primary Care Provider Unavailable Lukas Bradford MD Primary Care Provider Jan Juárez DO Primary Care Provider Unavaila Lane Villalobos MD Unavailable Unavailable Beti Greenwood MD Unavailable Juani Rhodes NP Unavailable [phone] Letitia Khalil MD Primary Care Provider Un available [facility], [facility], Pcp Primary Care Provider Unavailabl e Encounter Details Date Type Department Care Team Description 07/10/2015 Tablet Making Machine Operator Helper Report Medical Records [address] [place] [address] Sridhar Negrete Social History Tobacco Use Types Packs/Day Years [...] any clubs o r organizations such as jainism groups, unions, fraternal or athletic groups, or [...] on filedocumented in this encounter Care Teams Booth Manager Relationship Specialty Start Date End Date Samuel Cornelius PCP - General 08/29/05 12/24/15 Kristina Chatman MD PCP - General Internal Medicine 12/25/15 01/22/16 Scot Owen MD PCP - General Internal Medicine 01/23/1606/30/21 Lukas Bradford MD PCP - General Internal Medicine 07/01/21 08/10/21 Jan Palomino DO PCP - General Internal Medicine 08/11/21 11/16/23 Letitia Khalil MD [address] [place] [address] [place] [address] PCP - General Internal Medicine 11/17/23 06/21/24 [facility], [facility], Pcp [address] [place] [address] [place] [address] PCP - General Internal Medicine 06/22/24 Lane Valdes MD Specialist Cardiovascular Disease 01/14/22 Beti Greenwood MD [address] [facility] [place] [address] UROGYNECOLOGY 07/07/23 Juani Rhodes NP [address] [facility] [place] [address] Cardiology 07/07/23 documented as of this encounter
--- OUTSIDE RECORDS SUMMARY | 2024-11-30 08:27 | XMS_ITS | Encounter Summary ---
Author Organization [facility] Address [address] [place] [address] Care Team Providers Care Sap Pi Developer Name Role Phone Scot Owen MD Primary Care Provider Unavailable Lukas Bradford MD Primary Care Provider Jan Juárez DO Primary Care Provider UnavailLane Banerjee MD Unavailable Unavailable Beti Greenwood MD Unavailable Juani Rhodes NP Unavailable [phone] Letitia Khalil MD Primary Care Provider Un available [facility], Pcp Primary Care Provider Unavailabl e Encounter Details Date Type Department Care Team Description 05/11/2019 [facility] Medical Records [address] [place] [address] Abstract, Provider Social History Tobacco Use Types [...] How often do you attend chur or mandaeism services? Never 07/12/2023 Do you belong to [...] on filedocumented in this encounter Care Teams Sap Pi Developer Relationship Specialty Start Date End Date Scot Owen MD PCP - General Internal Medicine 01/23/1606/30/21 Lukas Bradford MD PCP - General Internal Medicine 07/01/21 08/10/21 Jan Palomino DO PCP - General Internal Medicine 08/11/21 11/16/23 Letitia Khalil MD [address] [place] [address] [place] [address] PCP - General Internal Medicine 11/17/23 06/21/24 [facility], Pcp [address] [place] [address] [facility]Car[facility] [place] [address] PCP - General Internal Medicine 06/22/24 Lane Valdes MD Specialist Cardiovascular Disease 01/14/22 Beti Greenwood MD [address] [place] [address] [facility] [place] [address] UROGYNECOLOGY 07/07/23 Juani Rhodes, ISAC [address] [facility] [place] [address] Cardiology 07/07/23 documented as of this encounter
--- OUTSIDE RECORDS SUMMARY | 2024-11-30 08:27 | XMS_ITS | Encounter Summary ---
Author Organization [email or web address] Address [address] [place] [address] Care Team Providers Care Nickel Operator Name Role Phone Scot Owen MD Primary Care Provider Unavailable Lukas Bradford MD Primary Care Provider Jan Juárez DO Primary Care Provider UnavailLane Banerjee MD Unavailable Unavailable Beti Greenwood MD Unavailable Juani Rhodes NP Unavailable [phone] Letitia Khalil MD Primary Care Provider Un available [facility], Pcp Primary Care Provider Unavailabl e Encounter Details Date Type Department Care Team Description 07/10/2019 Old Medical Records Medical Records [address] [place] [address] Abstract, Provider Social History Tobacco Use Types [...] How often do you attend chur or episcopal services? Never 07/12/2023 Do you belong to any clubs o r organizations such as mormon groups, unions, fraternal or athletic groups, or [...] on filedocumented in this encounter Care Teams Nickel Operator Relationship Specialty Start Date End Date Scot Owen MD PCP - General Internal Medicine 01/23/1606/30/21 Lukas Bradford MD PCP - General Internal Medicine 07/01/21 08/10/21 Jan Palomino DO PCP - General Internal Medicine 08/11/21 11/16/23 Letitia Khalil MD [address] [place] [address] [place] [address] PCP - General Internal Medicine 11/17/23 06/21/24 [facility], Pcp [address] [place] [address] [facility]ologLex[facility] [place] [address] PCP - General Internal Medicine 06/22/24 Lane Valdes MD Specialist Cardiovascular Disease 01/14/22 Beti Greenwood MD [address] [place] [address] U[facility]gynecologLex[facility] [place] [address] UROGYNECOLOGY 07/07/23 Juani Rhodes, ISAC [address] [facility] [place] [address] Cardiology 07/07/23 documented as of this encounter
--- OUTSIDE RECORDS SUMMARY | 2024-11-30 08:27 | XMS_ITS | Encounter Summary ---
Author Organization [facility] Address [address] [place] [address] Care Team Providers Care Cloth Finishing Range Operator Name Role Phone Samuel Cornelius Primary Care Provider Kristina Gilbert MD Primary Care Provider UnavailScot Hansen MD Primary Care Provider Unavailable Lukas Bradford MD Primary Care Provider Jan Juárez DO Primary Care Provider Unavaila Lane Villalobos MD Unavailable Unavailable Beti Greenwood MD Unavailable Juani Rhodes NP Unavailable [phone] Letitia Khalil MD Primary Care Provider Un available [facility], Pcp Primary Care Provider Unavailabl e Reason for Visit * Reason Onset Date Comments Medication 04/05/2014 Encounter Details Date Type Department Care Team Description 04/05/2014 Telephone Adult Medicine - [address] [address] Samuel Cornelius Medication Social History Tobacco Use Types Packs/Day Years [...] any clubs o r organizations such as anabaptist groups, unions, fraternal or athletic groups, or [...] place to sleep or slept in a custodial (including now)? No 07/12/2023 Sex Assigned at Date Recorded Not on file Job Start Date Occupation Industry Not on file Not on file Not on file documented as of this encounter Miscellaneous Notes * Telephone Encounter - Karen Yost - 04/05/2014 3:37 PM EDT Pt calling stating Dr.azimov [place] [facility]. Prescribed oxycodone 10-325 mg to pt. Pt is concerned because she is on a contract with Dr. Cornelius. Please advise. documented in this encounter Plan of Treatment Not on file documented as of this encounter Visit Diagnoses Not on filedocumented in this encounter Care Teams Cloth Finishing Range Operator Relationship Specialty Start Date End Date Samuel Cornelius PCP - General 08/29/05 12/24/15 Kristina Chatman MD PCP - General Internal Medicine 12/25/15 01/22/16 Scot Owen MD PCP - General Internal Medicine 01/23/1606/30/21 Lukas Bradford MD PCP - General Internal Medicine 07/01/21 08/10/21 Jan Palomino DO PCP - General Internal Medicine 08/11/21 11/16/23 Letitia Khalil MD [address] [facility] [place] [address] PCP - General Internal Medicine 11/17/23 06/21/24 [facility], [address] [place] [address] PCP - General Internal Medicine 06/22/24 Lane Valdes MD Specialist Cardiovascular Disease 01/14/22 Beti Greenwood MD [address] [facility] [place] [address] UROGYNECOLOGY 07/07/23 Juani Rhodes NP [address] [facility] [place] [address] Cardiology 07/07/23 documented as of this encounter
--- OUTSIDE RECORDS SUMMARY | 2024-11-30 08:27 | XMS_ITS | Encounter Summary ---
Author Organization [facility] Address [address] [place] [address] Care Team Providers Care Plastic Extruding Machine Operator Name Role Phone AshliAlexel Abebe Primary Care Provider UnaKristina Herrera MD Primary Care Provider UnavailScot Hansen MD Primary Care Provider Unavailable Lukas Bradford MD Primary Care Provider Jan Juárez DO Primary Care Provider Unavaila Lane Villalobos MD Unavailable Unavailable Beti Greenwood MD Unavailable Juani Rhodes NP Unavailable [phone] Letitia Khalil MD Primary Care Provider Un available [facility], Pcp Primary Care Provider Unavailabl e Encounter Details Date Type Department Care Team Description 04/05/2014 Pt. Non Urgent Medic al Question Physiatry - [address] [address] Niels Jackson DO Lumbago Social History Tobacco Use Types Packs/Day Years [...] How often do you attend chur or taoist services? Never 07/12/2023 Do you [...] place to sleep or slept in a detention (including now)? No 07/12/2023 Sex Assigned at Date Recorded Not on file Job Start Date Occupation Industry Not on file Not on file Not on file documented as of this encounter Plan of Treatment Not on file documented as of this encounter Visit Diagnoses Diagnosis Lumbago documented in this encounter Care Teams Plastic Extruding Machine Operator Relationship Specialty Start Date End Date Samuel Cornelius PCP - General 08/29/05 12/24/15 Kristina Chatman MD PCP - General Internal Medicine 12/25/15 01/22/16 Scot Owen MD PCP - General Internal Medicine 01/23/1606/30/21 Lukas Bradford MD PCP - General Internal Medicine 07/01/21 08/10/21 Jan Palomino DO PCP - General Internal Medicine 08/11/21 11/16/23 Letitia Khalil MD [address] [place] [address] [place] [address] PCP - General Internal Medicine 11/17/23 06/21/24 [facility], [address] [place] [address] PCP - General Internal Medicine 06/22/24 Lane Valdes MD Specialist Cardiovascular Disease 01/14/22 Beti Greenwood MD [address] [facility] [address] UROGYNECOLOGY 07/07/23 Juani Rhodes NP [address] [facility] UrogynecologOhio[place] [address] Cardiology 07/07/23 documented as of this encounter
--- OUTSIDE RECORDS SUMMARY | 2024-11-30 08:27 | XMS_ITS | Encounter Summary ---
Author Organization [facility] Address [address] [place] [address] Care Team Providers Care Associate Financial Representative Name Role Phone Scot Owen MD Primary Care Provider Unavailable Lukas Bradford MD Primary Care Provider Jan Juárez DO Primary Care Provider UnavailLane Banerjee MD Unavailable Unavailable Beti Greenwood MD Unavailable Juani Rhodes NP Unavailable [phone] Letitia Khalil MD Primary Care Provider Un available [facility], Pcp Primary Care Provider Unavailabl e Encounter Details Date Type Department Care Team Description 06/22/2019 [facility] Medical Records [address] [place] [address] Abstract, Provider Social History Tobacco Use Types [...] How often do you attend chur or episcopalian services? Never 07/12/2023 Do you belong to any clubs o r organizations such as anglican groups, unions, fraternal or athletic groups, or [...] on filedocumented in this encounter Care Teams Associate Financial Representative Relationship Specialty Start Date End Date Scot Owen MD PCP - General Internal Medicine 01/23/1606/30/21 Lukas Bradford MD PCP - General Internal Medicine 07/01/21 08/10/21 Jan Palomino DO PCP - General Internal Medicine 08/11/21 11/16/23 Letitia Khalil MD [address] [place] [address] [facility]rogynecologUniversity [facility] [place] [address] PCP - General Internal Medicine 11/17/23 06/21/24 [facility], Pcp [address] [place] [address] UrogynecologWilliamson [place] [address] PCP - General Internal Medicine 06/22/24 Lane Valdes MD Specialist Cardiovascular Disease 01/14/22 Beti Greenwood MD [address] [place] [address] UrogynecologWilliamson [place] [address] UROGYNECOLOGY 07/07/23 Juani Rhodes, ISAC [address] [facility] [place] [address] Cardiology 07/07/23 documented as of this encounter
--- OUTSIDE RECORDS SUMMARY | 2024-11-30 08:28 | XMS_ITS | Encounter Summary ---
Author Organization [facility] Address [address] [place] [address] Care Team Providers Care Animal Ride Attendant Name Role Phone Lukas Bradford MD Primary Care Provider Jan Juárez DO Primary Care Provider UnavailLane Banerjee MD Unavailable Unavailable Beti Greenwood MD Unavailable Juani Rhodes NP Unavailable [phone] Letitia Khalil MD Primary Care Provider Un available [facility], Pcp Primary Care Provider Unavailabl e Encounter Details Date Type Department Care Team Description 07/14/2021 Pt. Non Urgent Medic al Question Adult Medicine - [address] [address] Scot Owen MD Social History Tobacco Use [...] How often do you attend chur or synagogue services? Never 07/12/2023 Do you [...] encounter Miscellaneous Notes * Telephone Encounter - Katia Arroyo L.P.N. - 07/14/2021 9:52 AM EST From: Neha Wright To: Clovis Owen Sent: 07/14/2021 7:24 AM EST Subject: prescription Do i keep submitting my refill requests to [facility]? I have cancelled my appointment with Dr. Bradford ..She told me many dr's left and she won't accept my narcotics program. So what do i do for my refills? documented in this encounter Plan of Treatment Not on file documented as of this encounter Visit Diagnoses Not on filedocumented in this encounter Care Teams Animal Ride Attendant Relationship Specialty Start Date End Date Lukas Bradford MD PCP - General Internal Medicine 07/01/21 08/10/21 Jan Palomino DO PCP - General Internal Medicine 08/11/21 11/16/23 Letitia Khalil MD [address] [facility] [place] [address] PCP - General Internal Medicine 11/17/23 06/21/24 [facility], Pcp [address] [facility] [place]Barre [place] [address] PCP - General Internal Medicine 06/22/24 Lane Valdes MD Specialist Cardiovascular Disease 01/14/22 Beti Greenwood MD [address] [facility] [place] [address] UROGYNECOLOGY 07/07/23 Juani Rhodes, ISAC [address] [facility] UrogynenylogJames B. [place]gin [place] [address] Cardiology 07/07/23 documented as of this encounter
--- OUTSIDE RECORDS SUMMARY | 2024-11-30 08:28 | XMS_ITS | Encounter Summary ---
Author Organization [facility] [place] [address] Care Team Providers Care Community Fundraiser Name Role Phone Chyna Reina MD Primary Care Provider [phone] Reason for Visit * Reason Onset Date Comments Pre-operative Clearance 11/22/2024 Encounter Details Date Type Department Care Team (Late st Contact Info) Description 11/22/2024 Telephone [facility] Cardiology [address] [place] [address] Chapito Castle MD [address] [place] [address],[address] [address] Pre-operative Clearance Social History Tobacco Use Types Packs/Day Years Used Date Smoking Tobacco: Former Cigarettes 0 10/27/2005 - 09/29/2019 Smokeless Tobacco: Never Alcohol Use Standard Drinks/Week Comments Yes 0 (1 standard drink = 0.6 oz pur e alcohol) occassionally Comments No Sex and Gender Information Value Date Recorded Sex Assigned at Female 11/21/2024 9:49 AM EDT Legal Sex Female 2:44 PM EST Gender Identity Female 11/21/2024 9:49 AM EDT Sexual Orientation Straight 11/21/2024 9: 49 AM EDT documented as of this encounter Progress Notes * Chapito Castle MD - 11/22/2024 6:22 PM EDT To whom it may concern: I am enclosing recent outpatient cardiac evaluation on Neha Wright. I understand the patient is being considered for gynecologic surgery in November 2024. She is not reporting active angina and there is no clinical evidence of congestive heart failure. I feel that she would be at low risk for cardiac complications of her planned surgery. I trust this information is useful to you. Please contact me with any particular questions or concerns. Sincerely, Chapito Castle MD, FACC * Thomas Rafael - 11/22/2024 2:58 PM EDT Medical Records Request Caller: Grace Calling from: [address] [place] [address] Requesting provider's first & last name: Dr Beti Greenwood Direct Phone Number or Ext: [phone] What records are being requested: Office notes How far back: 10/30/24 What is it for: Surgery Needed by: as soon as possible Fax Number: [phone] Grace calling for Dr Lee office and seeing if we can have clearance from the patiens last office notes for her Vaginal wall repair and prolapse repair happening on December 17 instead of March 24. If we can addendum the notes from 10/30/24 to say the patient is cleared or not for surgery and sent to them they would appreciate it. documented in this encounter Plan of Treatment Upcoming Encounters Date Type Department Care Team (Latest Contact Info) Description 12/06/2024 1:30 PM EDT Consult Internal Medicine - [place] [address] [place] [address] Chyna Reina MD [address] [place] [address] 12/07/2024 9:15 AM EDT Consult Urogynecology - [address] [place] [address] Beti Greenwood MD [address] [place] [address] 12/17/2024 7:30 AM EDT Hospital Encounter [facility] [place] [address] [place] [phone] Beti Greenwood MD [address] [place] [address] 12/17/2024 7:30 AM EDT - 12/17/2024 12:[address] [facility] [place] [address] [place] [address] Beti Greenwood MD [address] [place] [address] DAVINCI COLPOPEXY [[id number] (CPT??)] 01/02/2025 11:45 AM EDT Office Visit Urogynecology - [place] [address] [place] [address] Kimberley Azul NP [address] [place] [address] 02/01/2025 11:45 AM EDT Office Visit Urogynecology - [place] [address] [place] [address] Beti Greenwood MD [address] [place] [address] 03/04/2025 9:40 AM EDT Consult [facility] [address] [place] [phone] Juani Rhodes NP [address] [place] [address] Dr [address] [place] [address] 05/13/2025 8:00 AM EDT Office Visit Internal Medicine - [place] [address] [place] [address] Chyna Reina MD [address] [place] [address] Scheduled Procedures Name Priority Associated Diagnoses Date/Ti me COLPOPEXY ROBOT Female cystocele Rectocele Vaginal vault prolapse, posthysterectomy 12/17/2024 7:30 AM EDT CYSTOSCOPY Female cystocele Rectocele Vaginal vault prolapse, posthysterectomy 12/17/2024 7:30 AM EDT COLPORRHAPHY ANTERIOR POSTERIOR Female cystocele Rectocele Vaginal vault prolapse, posthysterectomy 12/17/2024 7:30 AM EDT documented as of this encounter Visit Diagnoses Not on filedocumented in this encounter Additional Health Concerns Assessment Noted Time PHQ-9 Depression Total Score: 0 11/09/19 8:29 AM EDT A fall risk assessment has been complete d for the patient 11/08/2024 8:27 AM EDT documented as of this encounter Care Teams Community Fundraiser Relationship Specialty Start Date End Date Chyna Reina MD [address] [place] [address] PCP - General Family Medicine 10/26/24 documented as of this encounter
--- OUTSIDE RECORDS SUMMARY | 2024-11-30 08:28 | XMS_ITS | Encounter Summary ---
Author Organization [facility] Address [address] [place] [address] Care Team Providers Care Media Associate Name Role Phone Kristina Chatman MD Primary Care Provider UnavailScot Hansen MD Primary Care Provider Unavailable Lukas Bradford MD Primary Care Provider Jan Juárez DO Primary Care Provider Unavaila Lane Villalobos MD Unavailable Unavailable Beti Greenwood MD Unavailable Juani Rhodes NP Unavailable [phone] Letitia Khalil MD Primary Care Provider Un available [facility], Pcp Primary Care Provider [facility] e Encounter Details Date Type Department Care Team Description 01/19/2016 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 No 07/12/2023 Sex Assigned at Date Recorded Not on file Job Start Date Occupation Industry Not on file Not on file Not on file documented as of this encounter Plan of Treatment Not on file documented as of this encounter Visit Diagnoses Not on filedocumented in this encounter Care Teams Media Associate Relationship Specialty Start Date End Date Kristina Chatman MD PCP - General Internal Medicine 12/25/15 01/22/16 Scot Owen MD PCP - General Internal Medicine 01/23/1606/30/21 Lukas Bradford MD PCP - General Internal Medicine 07/01/21 08/10/21 Jan Palomino DO PCP - General Internal Medicine 08/11/21 11/16/23 Letitia Khalil MD [address] [place] [address] [facility] [place] [address] PCP - General Internal Medicine 11/17/23 06/21/24 [facility], Pcp [address] [place] [address] [place] [address] PCP - General Internal Medicine 06/22/24 Lane Valdes MD Specialist Cardiovascular Disease 01/14/22 Beti Greenwood MD [address] [place] [address] [place] [address] UROGYNECOLOGY 07/07/23 Juani Rhodes, ISAC [address] [facility] [place] [address] Cardiology 07/07/23 documented as of this encounter
--- OUTSIDE RECORDS SUMMARY | 2024-11-30 08:28 | XMS_ITS | Encounter Summary ---
Author Organization [facility] Address [address] [place] [address] Care Team Providers Care Shuttler Name Role Phone Lukas Bradford MD Primary Care Provider Jan Juárez DO Primary Care Provider Lane Macario MD Unavailable Unavailable Beti Greenwood MD Unavailable Juani Rhodes NP Unavailable [phone] Letitia Khalil MD Primary Care Provider Un available [facility], Pcp Primary Care Provider Unavailabl e Encounter Details Date Type Department Care Team Description 07/06/2021 Pt. Non Urgent Medic al Question Adult [address] [address] Lukas Bradford MD Social History Tobacco Use Types Packs/Day [...] encounter Miscellaneous Notes * Telephone Encounter - Kristina Bello - 07/06/2021 9:13 AM ESTFrom: Neha Wright To: Jayy Bradford Sent: 07/06/2021 9:09 AM EST Subject: appointment I need a morning appointment for october [address] in the afternoon traffic. documented in this encounter Plan of Treatment Not on file documented as of this encounter Visit Diagnoses Not on filedocumented in this encounter Care Teams Shuttler Relationship Specialty Start Date End Date Lukas Bradford MD PCP - General Internal Medicine 07/01/21 08/10/21 Jan Palomino DO PCP - General Internal Medicine 08/11/21 11/16/23 Letitia Khalil MD [address] [place] [address] [place] [address] PCP - General Internal Medicine 11/17/23 06/21/24 [facility], [address] [place] [address] PCP - General Internal Medicine 06/22/24 Lane Valdes MD Specialist Cardiovascular Disease 01/14/22 Beti Greenwood MD [address] [facility] [address] UROGYNECOLOGY 07/07/23 Juani Rhodes NP [address] [facility] [place] [address] Cardiology 07/07/23 documented as of this encounter
--- OUTSIDE RECORDS SUMMARY | 2024-11-30 08:28 | XMS_ITS | Data Portability ---
Author Organization [facility] Address [address] [place] [address] Assessment No assessment recorded. Plan of Treatment Reminders Order Date Submit Date Provider Last Modified By Organization Details Last Modified Time Details Appointments None recorded. Lab urinalysis, dipstick 2023 024 [facility], [address] [place], [address], 4 11:46:37 culture, urine 2023 024 [facility], [address] [place] [address], [place], [address], 4 18:06:08 Referral None recorded. Procedures None recorded. Surgeries None recorded. Imaging None recorded. Medication Orders Pyridium 100 mg tablet 2023 024 [facility]/Pharmacy #[id number], [address] [place], [address], 4 11:46:37 nitrofurant oin monohydrate /macrocryst als 100 mg capsule 2023 024 [id number], [address] [place], [address], 4 18:35:37 Patient TargetsNo targets recorded. Patient InstructionsNo instructions recorded. Reason for Referral None Reported. Results Created Date Observation Date Name Description Value Unit Range Abnormal Flag Note LastModifiedBy Organization Detail LastModifiedTime 02/12/20 24 02/12/2024 urina lysis , dipst ick Unknown Analyte Normal = light yellow Not Available [facility] [address] [place] [address], [address], 02/12/2024 10:50:52 02/12/20 24 02/12/2024 urina lysis , dipst ick Unknown Analyte Dark Yellow Not Available [facility] [address] [place] [address], [address], 02/12/2024 10:50:52 02/12/20 24 02/12/2024 urina lysis , dipst ick Unknown Analyte Normal = clear Not Available [facility] [address] [place] [address], [address], 02/12/2024 10:50:52 02/12/20 24 02/12/2024 urina lysis , dipst ick Unknown Analyte Cloudy Not Available [facility] [address] [place] [address], [address], 02/12/2024 10:50:52 02/12/20 24 02/12/2024 urina lysis , dipst ick Unknown Analyte Normal = negati ve Not Available [facility] [address] [place] [address], [address], 02/12/2024 10:50:52 02/12/20 24 02/12/2024 urina lysis , dipst ick Unknown Analyte 100 mg/dL Not Available [facility] [address] [place] [address], [address], 02/12/2024 10:50:52 02/12/20 24 02/12/2024 urina lysis , dipst ick Unknown Analyte Normal = Negati ve Not Available [facility] [address] [place] [address], [address], 02/12/2024 10:50:52 02/12/20 24 02/12/2024 urina lysis , dipst ick Unknown Analyte Negati ve Not Available [facility] [address] [place] [address], [address], 02/12/2024 10:50:52 02/12/20 24 02/12/2024 urina lysis , dipst ick Unknown Analyte Normal = Negati ve Not Available [facility] [address] [place] [address], [address], 02/12/2024 10:50:52 02/12/20 24 02/12/2024 urina lysis , dipst ick Unknown Analyte 15 mg/dL Not Available [facility] [address] [place] [address], [address], 02/12/2024 10:50:52 02/12/20 24 02/12/2024 urina lysis , dipst ick Unknown Analyte Normal = 1.010, 1.015, 1.020 Not Available [facility] [address] [place] [address], [address], 02/12/2024 10:50:52 02/12/20 24 02/12/2024 urina lysis , dipst ick Unknown Analyte 1.010 Not Available [facility] [address] [place] [address], [address], 02/12/2024 10:50:52 02/12/20 24 02/12/2024 urina lysis , dipst ick Unknown Analyte Normal = Negati ve Not Available [facility] [address] [place] [address], [address], 02/12/2024 10:50:52 02/12/20 24 02/12/2024 urina lysis , dipst ick Unknown Analyte Trace- intact Not Available [facility] [address] [place] [address], [address], 02/12/2024 10:50:52 02/12/20 24 02/12/2024 urina lysis , dipst ick Unknown Analyte Normal = 6.5, 7.0, 7.5, 8.0 Not Available [facility] [address] [place] [address], [address], 02/12/2024 10:50:52 02/12/20 24 02/12/2024 urina lysis , dipst ick Unknown Analyte 5.0 Not Available [address], [address], 02/12/2024 10:50:52 02/12/20 24 02/12/2024 urina lysis , dipst ick Unknown Analyte Normal = Negati ve Not Available [address], [address], 02/12/2024 10:50:52 02/12/20 24 02/12/2024 urina lysis , dipst ick Unknown Analyte Trace Not Available [address], [address], 02/12/2024 10:50:52 02/12/20 24 02/12/2024 urina lysis , dipst ick Unknown Analyte Normal = 0.2, 1.0 Not Available [facility] [address] [place] [address], [address], 02/12/2024 10:50:52 02/12/20 24 02/12/2024 urina lysis , dipst ick Unknown Analyte 1.0 E.U./d L Not Available [address], [address], 02/12/2024 10:50:52 02/12/20 24 02/12/2024 urina lysis , dipst ick Unknown Analyte Normal = Negati ve Not Available [facility] [address] [place], [address], 02/12/2024 10:50:52 02/12/20 24 02/12/2024 urina lysis , dipst ick Unknown Analyte Positi ve Not Available [facility] [address] [place] [address], [address], 02/12/2024 10:50:52 02/12/20 24 02/12/2024 urina lysis , dipst ick Unknown Analyte Normal = Negati ve Not Available [facility] [address] [place] [address], [address], 02/12/2024 10:50:52 02/12/20 24 02/12/2024 urina lysis , dipst ick Unknown Analyte Large Not Available [facility] [address] [place] [address], [address], 02/12/2024 10:50:52 02/13/20 24 02/15/2024 URINE CULTU RE, ANDREINA NE urine culture, routine FINAL REPORT abnormal Not Available [facility] ([facility]) [address] [facility], [place], [address], 02/15/2024 14:08:26 02/13/20 24 02/15/2024 URINE CULTU [...] p A). (CLSI ) Not Available [facility] ([facility]) [address] [facility], [place], [address], 02/15/2024 14:08:26 Result Notes None recorded. Problems Name Problem SNOMED Code Status Onset Date Resolution Date Notes Provider Name and Address Organization Details Recorded Time Dysuria-fr equency syndrome 4757791 Active 024 Joan Hopper, ISAC [address] [place], [address] , [place] - [facility] 02/12/2024 11:44:23 Problem Notes None recorded. Medical Equipment None Reported. Allergies Allergen ID Allergen Name Allergen Category Reaction Reaction Severity Criticality Documentation Date Start Date Code Code System Note Provider Name and Address Organization Details Recorded Time 627052 Substance with sulfonami de structure and antibacte rial mechanism of action (substanc e) medicatio n Not available Not available Not available 02/12/2024 80049 8003 SNOMED Sheeba bills [place] - [facility] 4 10:48:43 511160 Bactrim medicatio n Not available Not available Not available 02/12/2024 17716 9 RxNorm Sheeba bills [place] - [facility] [...] 4 18 /min 167.64 cm 25.8 kg/m2 88709.7 8 g 97.9 [degF] 93 /min 97 [...] SNOMED-CT Code Diagnosis ICD10 Code Diagnosis Note [id number] [address] [address] 02/23/2020 08:37:39 02/23/2020 09:36:03 [id number] [place] [address] [address] 02/12/2024 10:37:17 02/12/2024 11:52:13 Dysuria-frequency syndrome 0345122 R30.0 The following are recommenda tions to [...] was prescribed . Thank you for using [facility] - please don't hesistate to call our [...] Member ID Guarantor Name 02/23/2020 1 MEDICARE B-PR: [employer] Neha Montilla [id number] 1 Neha Montilla 02/12/2024 1 [place]IC[place]: NATIONAL [employer]MENT [employer] Neha Montilla [id number] 1 Neha Montilla Notes Date Note Type [...] Joan Hopper NP [address] [place], [address], [place] - [facility] 02/14/2024 18:37:58 OBGyn Episode No OBEpisode recorded.
--- OUTSIDE RECORDS SUMMARY | 2024-11-30 08:28 | XMS_ITS | Encounter Summary ---
Author Organization [facility] Address [address] [place] [address] Care Team Providers Care Injection Molding Machine Setter Name Role Phone Scot Owen MD Primary Care Provider Unavailable Lukas Bradford MD Primary Care Provider Jan Juárez DO Primary Care Provider UnavailLane Banerjee MD Unavailable Unavailable Beti Greenwood MD Unavailable Juani Rhodes NP Unavailable [phone] Letitia Khalil MD Primary Care Provider Un available [facility], Pcp Primary Care Provider Unavailabl e Encounter Details Date Type Department Care Team Description 05/21/2021 [facility] Medical Records [address] [place] [address] Abstract, Provider Social History Tobacco Use Types [...] often do you attend chur ch or anabaptist services? Never 07/12/2023 Do you belong to [...] on filedocumented in this encounter Care Teams Injection Molding Machine Setter Relationship Specialty Start Date End Date Scot Owen MD PCP - General Internal Medicine 01/23/1606/30/21 Lukas Bradford MD PCP - General Internal Medicine 07/01/21 08/10/21 Jan Palomino DO PCP - General Internal Medicine 08/11/21 11/16/23 Letitia Khalil MD [address] [place] [address] [facility] [address] PCP - General Internal Medicine 11/17/23 06/21/24 [facility], Pcp [address] [place] [address] [facility] [place] [address] PCP - General Internal Medicine 06/22/24 Lane Valdes MD Specialist Cardiovascular Disease 01/14/22 Beti Greenwood MD [address] [place], [place] [address] [place] [address] UROGYNECOLOGY 07/07/23 Juani Rhodes, TUNNEL WORKER [address] [facility] [place] [address] Cardiology 07/07/23 documented as of this encounter
--- OUTSIDE RECORDS SUMMARY | 2024-11-30 08:28 | XMS_ITS | Encounter Summary ---
Author Organization [facility] Address [address] [place] [address] Care Team Providers Care Certified Composites Technician Name Role Phone Beti Greenwood MD Unavailable Juani Rhodes NP Unavailable [phone] Letitia Khalil MD Primary Care Provider Un available [facility], Pcp Primary Care Provider Unavailabl e Encounter Details Date Type Department Care Team Description 06/04/2024 Pt. Non Urgent Medic al Question Adult Medicine - [address] [address] Letitia Khalil MD Social History Tobacco Use Types Packs/Day [...] often do you attend chur ch or restorationist services? Never 07/12/2023 Do you belong to any clubs o r organizations such as sikhism groups, unions, fraternal or athletic groups, or [...] Telephone Encounter - Katia Arroyo L.P.N. - 06/05/2024 7:55 AM EDT From: Neha Wright To: Halima Slaughter Sent: 06/04/2024 6:32 PM EDT Subject: Primary care I just received a letter telling me i need to get another primary care physician Could you please pick on for me and let me know.. Thank you Neha Wright documented in this encounter Plan of Treatment Not on file documented as of this encounter Visit Diagnoses Not on filedocumented in this encounter Care Teams Certified Composites Technician Relationship Specialty Start Date End Date Letitia Khalil MD [address] [facility] [place] [address] PCP - General Internal Medicine 11/17/23 06/21/24 [facility], Pcp [address] [place] [address] [place] [address] PCP - General Internal Medicine 06/22/24 Beti Greenwood MD [address] [place] [address] [place] [address] UROGYNECOLOGY 07/07/23 Juani Rhodes, ISAC [address] [facility] [place] [address] Cardiology 07/07/23 documented as of this encounter
--- OUTSIDE RECORDS SUMMARY | 2024-11-30 08:28 | XMS_ITS | Encounter Summary ---
Author Organization [email or web address] Address [address] [place] [address] Care Team Providers Care Line O Scribe Operator Name Role Phone Lukas Bradford MD Primary Care Provider Jan Juárez DO Primary Care Provider UnavailLane Banerjee MD Unavailable Unavailable Beti Greenwood MD Unavailable Juani Rhodes NP Unavailable [phone] Letitia Khalil MD Primary Care Provider Un available [facility], Pcp Primary Care Provider Unavailabl e Encounter Details Date Type Department Care Team Description 07/14/2021 Pt. Non Urgent Medic al Question Adult Medicine - [address] [address] Scot Owen MD Social History Tobacco Use [...] How often do you attend chur or advent services? Never 07/12/2023 Do you belong to any clubs o r organizations such as yazidism groups, unions, fraternal or athletic groups, or [...] on filedocumented in this encounter Care Teams Line O Scribe Operator Relationship Specialty Start Date End Date Lukas Bradford MD PCP - General Internal Medicine 07/01/21 08/10/21 Jan Palomino DO PCP - General Internal Medicine 08/11/21 11/16/23 Letitia Khalil MD [address] [place] [address] [place] [address] PCP - General Internal Medicine 11/17/23 06/21/24 [facility] [place] [address] [place] [address] PCP - General Internal Medicine 06/22/24 Lane Valdes MD Specialist Cardiovascular Disease 01/14/22 Beti Greenwood MD [address] [facility] [place] [address] UROGYNECOLOGY 07/07/23 Juani Rhodes NP [address] [facility] [place] [address] Cardiology 07/07/23 documented as of this encounter
--- OUTSIDE RECORDS SUMMARY | 2024-11-30 08:28 | XMS_ITS | Encounter Summary ---
[facility] Address [address] [place] [address] Care Team Providers Care Public Service Officer Name Role Phone Scot Owen MD Primary Care Provider Unavailable Lukas Bradford MD Primary Care Provider Jan Juárez DO Primary Care Provider UnavailLane Banerjee MD Unavailable Unavailable Beti Greenwood MD Unavailable Juani Rhodes NP Unavailable [phone] Letitia Khalil MD Primary Care Provider Un available [facility], Pcp Primary Care Provider Unavailabl e Encounter Details Date Type Department Care Team Description 02/16/2016 Pt. Non Urgent Medic al Question Physiatry [address] [address] Niels Jackson DO Social History Tobacco Use Types Packs/Day [...] How often do you attend chur or latter day services? Never 07/12/2023 Do you belong to any clubs o r organizations such as samaritan groups, unions, fraternal or athletic groups, or [...] as of this encounter Progress Notes * Gege Hill M.A. - 02/16/2016 3:04 PM EDTFrom: Neha Wright To: Niels Jackson DO Sent: 02/16/2016 3:02 PM EDT Subject: Contract Dr. Jackson, My prescription for percoset is due on this tue. I don't know who is taking over my contract? I know you are going to talk to dr. hampton. I just need to know before tue. Thank you, Tran documented in this encounter Plan of Treatment Not on file documented as of this encounter Visit Diagnoses Not on filedocumented in this encounter Care Teams Public Service Officer Relationship Specialty Start Date End Date Scot Owen MD PCP - General Internal Medicine 01/23/1606/30/21 Lukas Bradford MD PCP - General Internal Medicine 07/01/21 08/10/21 Jan Palomino DO PCP - General Internal Medicine 08/11/21 11/16/23 Letitia Khalil MD [address] [facility] [place] [address] PCP - General Internal Medicine 11/17/23 06/21/24 [facility], Pcp [address] [place] [address] [facility] [address] PCP - General Internal Medicine 06/22/24 Lane Valdes MD Specialist Cardiovascular Disease 01/14/22 Beti Greenwood MD [address] [place] [address] [facility] [place] [address] UROGYNECOLOGY 07/07/23 Juani Rhodes NP [address] [place] [address] [facility] [place] [address] Cardiology 07/07/23 documented as of this encounter
--- OUTSIDE RECORDS SUMMARY | 2024-11-30 08:28 | XMS_ITS | Encounter Summary ---
[facility] Address [address] [place] [address] Care Team Providers Care Firm Administrator Name Role Phone Scot Owen MD Primary Care Provider Unavailable Lukas Bradford MD Primary Care Provider Jan Juárez DO Primary Care Provider UnavailLane Banerjee MD Unavailable Unavailable Beti Greenwood MD Unavailable Juani Rhodes NP Unavailable [phone] Letitia Khalil MD Primary Care Provider Un available [facility], Pcp Primary Care Provider Unavailabl e Encounter Details Date Type Department Care Team Description 02/19/2016 Pt. Non Urgent Medic al Question Physiatry [address] [address] Niels Jackson DO Social History Tobacco Use [...] How often do you attend chur or church services? Never 07/12/2023 Do you [...] Progress Notes * Gege Hill M.A. - 02/20/2016 7:58 AM EDTFrom: Neha Wright To: Niels Jackson DO Sent: 02/19/2016 8:52 PM EDT Subject: refill request Dr. Jackson, [place] [facility] No one got back to me. I'm due tomorrow. Thank You, Neha Gonzales documented in this encounter Plan of Treatment Not on file documented as of this encounter Visit Diagnoses Not on filedocumented in this encounter Care Teams Firm Administrator Relationship Specialty Start Date End Date Scot Owen MD PCP - General Internal Medicine 01/23/1606/30/21 Lukas Bradford MD PCP - General Internal Medicine 07/01/21 08/10/21 Jan Palomino DO PCP - General Internal Medicine 08/11/21 11/16/23 Letitia Khalil MD [address] [place] [address] [place] [address] PCP - General Internal Medicine 11/17/23 06/21/24 [facility], Pcp [address] [facility] [address] PCP - General Internal Medicine 06/22/24 Lane Valdes MD Specialist Cardiovascular Disease 01/14/22 Beti Greenwood MD [address] [facility] [place] [address] UROGYNECOLOGY 07/07/23 Juani Rhodes, ISAC [address] [facility] [place] [address] Cardiology 07/07/23 documented as of this encounter
--- OUTSIDE RECORDS SUMMARY | 2024-11-30 08:28 | XMS_ITS | Clinical Summary ---
Author Organization [facility] Address [address] [place] [address] Care Team Providers Care Medication Assistant Name Role Phone Pcp, No Primary Care [...] 500 mg by mouth daily. 04/19/2023 Active oxyCODONE-acetaminop hen (PERCOCET) 5-325 mg per tablet TAKE 1 TABLET BY MOUTH UP TO 5 TIMES DAILY NEEDED FOR SEVERE PAIN 04/18/2023 Active diltiazem (CARDIZEM CD) 180 MG 24 hr capsule Take 1 tablet by mouth daily. 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 6 tablet 09/27/2024 Active saccharomyces boulardii (FLORASTOR) 250 MG capsuleIndications:B acterial urinary tract infection Take 1 capsule (250 mg total) by mouth 2 (two) times a day. 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 Anxiety 11/17/2023 Uterovaginal prolapse, unspecified 03/30/2023 Overview (10/19/2024): Added automatically from request for surgery [id number] Vaginal atrophy 03/30/2023 Overview (10/19/2024): Added automatically from request for surgery [id number] Mitral valve prolapse 02/25/2022 Overview (10/19/2024): Last [...] Description 10/19/2024 8:15 AM EST Office Visit [facility] [address] [phone] Yonatan Jasmine MD Anderson, Kelsey E, SILC Urinary tract infection symptoms 10/19/2024 Travel 10/11/2024 2:35 PM EST Office Visit [address] [phone] Uriah Holland MD Wiggins, Miriam K, PA-C Bacterial urinary tract infection (Primary Dx); Increased urinary frequency 10/11/[address] [phone] Yaa Carbajal PA-C Bacterial urinary tract infection 10/11/2024 Travel 09/27/2024 9:15 AM EST Office Visit [address] [phone] Uriah Holland MD Lapierre, Kathryn, APRN Frequency [...] of3 resultswithin the time period is included. Pathologist [facility] [place] Culture SEE NOTE Znode Comment: ??CULTURE, URINE, ROUTINE ?Micro Number: ?[id number] ??Test Status: ? Final ??Specimen Source: ?? Urine ??Specimen Quality: ??Adequate ??Result: ?No Growth Microbiology 10/19/2024 8:55 AM EST 10/20/2024 11:52 PM EST Sandy Lorenzana PA-C LAB AMB MICRO ORD ERABLES [facility] [address] [place] [phone] * (ABNORMAL) POCT Urinalysis Dipstick, Automated (10/19/2024 [...] Esterase, UA Small (+)(A) Negative Lot Number [id number] Prop Maker Pass Pass Urine 10/19/2024 8:53 AM EST Sandy Lorenzana PA-C POINT OF CARE ATTILA T ORDERABLES from Last 3 Months Care Teams Medication Assistant Relationship Specialty Start Date End Date Pcp, No PCP - General General Medicine 09/27/24
--- OUTSIDE RECORDS SUMMARY | 2024-11-30 08:28 | XMS_ITS | Clinical Summary ---
Author Organization [facility] Address [address] [facility] [place] [address] Phone Care Team Providers Care Spray Gun Striper Name Role Phone Chyna Reina MD Primary Care Provider [phone] Allergies Active Allergy Reactions Criticality Noted Date Comments Gabapentin Hives 04/14/2018 Hives/Urticaria Metaxalone Nausea And Vomiting 05/26/2022 Methocarbamol Runny nose 11/23/2005 Runny Nose/Rhinitis Other 05/08/2024 Per pt, all antidepressants cause pt to develop sores Penicillins Nausea And Vomiting,Nausea Only,Shortness of breath High 11/23/2005 Tolerated cephalosporin 05/24/23 Sertraline Rash 03/17/2017 Rash/Dermatitis Sulfa (Sulfonamide Antibiotics) Anaphylaxis High 05/08/2024 Sulfacetamide Sodium Numbness 11/23/2005 Numbness, tingling or swelling of the lips, tongue or mouth Sulindac 06/09/2011 Medications oxyCODONE-aceta minophen (PERCOCET) 5-325 mg per tablet Take 1 tablet by mouth 4 (four) times a day. Active valACYclovir (VALTREX) 500 mg tablet Take 1 tablet (500 mg total) by mouth 1 (one) time each day. 04/18/2023 Active dilTIAZem CD (CARDIZEM CD) 180 mg 24 hr capsule TAKE 1 CAPSULE BY MOUTH EVERY DAY 90 capsule 1 09/10/2024 Active Active Problems Problem Noted Date Diagnosed Date Medicare annual wellness visit, subsequent 11/08 Assessment & Plan (11/08/2024 8:58 AM EDT): -Per chart review, last colonoscopy in 2021 - Advised to undergo annual mammograms - Recommended bone density scan due to menopausal status (increased risk for osteoporosis) - Provided with forms to consider advanced directives - Vitamin B12 test to be ordered to rule out deficiencies - Thyroid hormone test, folate levels, and lipid panel to be ordered in 6 months (patient should fast) - Mammogram and bone density scan to be scheduled Macrocytosis 11/08/2024 Assessment & Plan (11/08/2024 9:00 AM EDT): Lab Results Component Value Date WBC 5.8 11/06/2024 HGB 14.6 11/06/2024 HCT 44.1 11/06/2024 MCV 101.6 (H) 11/06/2024 PLT 383 11/06/2024 Will check B12, folate and TSH Encounter to establish care 10/26/2024 Assessment & Plan (10/26/2024 3:36 PM EST): Patient is a 68 y.o. female who presents for annual physical. Vital signs and physical exam wnl Will schedule wellness visit Dysuria 10/26/2024 Assessment & Plan (10/26/2024 3:37 PM EST): - Reports symptoms of burning with urination, pressure, and lower back pain - Symptoms persist despite previous treatments with Macrobid and cephalexin - Urine culture from last visit on 10/19/2024 was negative (no bacterial growth) - Conduct urine test today to investigate cause of symptoms - Advise monitoring for worsening signs of fever, nausea, or vomiting -Follow with uro-health occupations instructor Anxiety 11/17/2023 Uterovaginal prolapse, unspecified 03/30/2023 Overview (05/08/2024): Added automatically from request for surgery [id number] Vaginal atrophy 03/30/2023 Overview (05/08/2024): Added automatically from request for surgery [id number] Mitral valve prolapse 02/25/2022 Overview (05/29/2024): Last Assessment & Plan: Patient reports that she has history of mitral valve prolapse however her most recent echocardiogram did not show any structural abnormalities. Cardiac function is normal. Assessment & Plan (10/30/2024 11:14 AM EST): Orders: ECG 12 lead SVT (supraventricular tachycardia) 02/23/2022 Overview (05/29/2024): Last [...] know if she has any adverse symptoms. Assessment & Plan (11/08/2024 9:02 AM EDT): Continue with diltiazem Follows with cardiology Assessment & Plan (10/30/2024 11:14 AM EST): Orders: ECG 12 lead Assessment & Plan (10/26/2024 3:39 PM EST): Follows with cardiology, she is currently on diltiazem although she was not able to tell me today why she is on the medication. Hyperlipidemia 09/18/2020 Overview (05/29/2024): Last Assessment & Plan: Patient's ASCVD risk is 8.7%. Her last LDL cholesterol was 134. She would have an increased benefit from being on statin therapy. She will continue to follow with her primary care provider. She will continue to work on diet and exercise. Assessment & Plan (11/08/2024 8:59 AM EDT): The 10-year ASCVD risk score (Antony GASPAR, et al., 2019) is: 8.7% Values used to calculate the score: Age: 68 years Sex: Female Is Non- : No Diabetic: No Tobacco smoker: No Systolic Blood Pressure: 128 mmHg Is BP treated: No HDL Cholesterol: 72 mg/dL Total Cholesterol: 255 mg/dL Discussed benefits of statin, she would like to hold off for now and work on lifestyle changes. Repeat in 6 months, if still elevated, she is open to start medication. Assessment & Plan (10/30/2024 11:14 AM EST): Orders: ECG 12 lead Colon, diverticulosis 04/18/2017 Depression 03/11/2017 Plantar fasciitis 07/14/2011 Overview (05/29/2024): Dr. Jimenez- steroid injection, stretching De Quervain's tenosynovitis 12/13/2008 Chronic pain syndrome 02/22/2007 Overview (05/29/2024): 02/06- Mother feels that she abuses Percocet, takes them with alcohol - she's in trouble For procedures, requires high dose of sedation, and cannot use propofol because of egg allergy Assessment & Plan (10/26/2024 3:40 PM EST): She is currently following with pain management at [facility] Diverticulitis of colon without hemorrhage 04/07 Degeneration of cervical intervertebral disc 02/2006 Overview (05/29/2024): excision/fusion c5/6- Dr. Contreras Depression with anxiety 02/02/2006 Overview (05/29/2024): Dr. Batista - q3mths - stopped in 2011 - Samuel Cornelius [...] 08/19/2003 Overview (05/29/2024): Dr. Maykel Ramírez - [facility] 2004 MRI and bone scan Herpes simplex type II infection 11/17/1995 Overview (05/29/2024): Confirmed by culture 05/22/0711/09 - valacyclovir 500mg qd for suppression Encounters Date Type Department Care Team Description 11/22/2024 Telephone [facility] [address] [facility] [address] [place] [address] Ewa Claire MD Pre-operative Clearance 11/21/2024 9:54 AM EDT - 11/21/2024 11:59 PM EDT Hospital Encounter [facility] Xray - [place] [address] [place] [address] Post-menopause Discharge Disposition: Home or Self Care 11/21/2024 9:45 AM EDT - 11/21/2024 11:59 PM EDT Hospital Encounter [facility] Mammography [facility] [address] [place] [address] Breast cancer screening by mammogram Discharge Disposition: Home or Self Care 11/21/2024 Telephone Urogynecology [address] [place], [place] [phone] Guera Quick MA scheduled surgery 11/21/2024 Telephone Urogynecology [address] [place], [place] [phone] Guera Quick MA schedule surgery 11/19/2024 Telephone Urogynecology - [address] [place] [phone] Beti Greenwood MD surgery 11/09/2024 9:45 AM EDT Office Visit Urogynecology [address] [place] [phone] Beti Greenwood MD Female cystocele (Primary Dx); Rectocele; Vaginal vault prolapse, posthysterectomy 11/08/2024 9:00 AM EDT Office Visit Internal Medicine - [place] [address] [place] [address] Chyna Reina MD Medicare annual wellness visit, subsequent (Primary Dx); Breast cancer screening by mammogram; Post-menopause; Hyperlipidemia, unspecified hyperlipidemia type; Macrocytosis; SVT (supraventricular tachycardia) (CMS/HCC) 10/30/2024 10:20 AM EST Office Visit [facility] [address] [facility] [address] [place] [address] Ewa Claire MD SVT (supraventricular tachycardia) (CMS/HCC) (Primary Dx); Mitral valve prolapse; Pure hypercholesterolemia 10/26/2024 2:30 PM EST Office Visit Internal Medicine - [place] [address] [place] [address] Chyna Reina MD Encounter to establish care (Primary Dx); BMI 25.0-25.9,adult; Encounter for screening for diabetes mellitus; Hyperlipidemia, unspecified hyperlipidemia type; Dysuria; SVT (supraventricular tachycardia) (CMS/HCC); Chronic pain syndrome from Last 3 Months Immunizations Name Administration Dates Next Due COVID-19 (Moderna/Spikevax) 12yo and older 04/14/2023 Influenza Quadravalent, 0.5m l (Fluad) 65yo and older 04/14/2023 Influenza Quadravalent, 0.5m l (Fluzone High-dose) 65yo and older 04/16/2024,05/05/2022,05/07/2021 Influenza Quadravalent, MDCK , 0.5ml, preservative free [...] BILATERAL SALPINGECTOMY; Surgeon: Beti Greenwood MD; Location: [facility]; Service: Gynecology; Laterality: N/A; VAGINAL PROLAPSE REPAIR 05/24/2023 N/A PROCEDURE:VAGINAL PROLAPSE REPAIR;COMMENT:Procedure: VAGINAL COLPOPEXY (INTRAPERITONEAL APPROACH); Surgeon: Beti Greenwood MD; Location: [facility]; Service: Gynecology; Laterality: N/A; COLPORRHAPHY 05/24/2023 N/A PROCEDURE:COLPORRHAPHY;COMM ENT:Procedure: POSTERIOR REPAIR; Surgeon: Beti Greenwood MD; Location: [facility]; Service: Gynecology; Laterality: N/A; CYSTOSCOPY 05/24/2023 N/A PROCEDURE:CYSTOSCOPY;COMMEN T:Procedure: CYSTOSCOPY; Surgeon: Beti Greenwood MD; Location: [facility]; Service: Gynecology; Laterality: N/A; OTHER SURGICAL HISTORY 05/24/2023 N/A PROCEDURE:TVT / TOT UTERINE SUSPENSION;COMMENT:Procedur e: PLACEMENT OF MESH MID-URETHRAL SLING; Surgeon: Beti Greenwood MD; Location: [facility]; Service: Gynecology; Laterality: N/A; OTHER SURGICAL HISTORY 04/22/05 PROCEDURE: DE LAMOPLASTY CERVICAL DCMPRN CORD 2/> SEG RCNSTJ; COMMENT: Dr. Contreras OTHER SURGICAL HISTORY PROCEDURE: DE LIG/TRNSXJ FLP TUBE ABDL/VAG APPR UNI/BI TONSILLECTOMY ADENOIDECTOMY, BILATERAL MYRINGOTOMY AND TUBES PROCEDURE: DE TONSILLECTOMY & ADENOIDECTOMY <AGE 11 COLONOSCOPY 07/16/11 [facility] PROCEDURE: HISTORICAL COLONOSCOPY; COMMENT: tics; repeat in five yrs CARPAL TUNNEL RELEASE 10/08/15 Left PROCEDURE: HISTORICAL CARPAL TUNNEL REL; COMMENT: Dr. Negrete NOSE SURGERY PROCEDURE: DE UNLISTED PROCEDURE NOSE; COMMENT: rhinoplasty Medical History [...] Orientation Straight 11/21/2024 9: 49 AM EDT Obstetrics History Para Term AB IAB SAB Ectopic Multiple Livin g Live Births 2 2 2 2 Date Outcome GA Total Labor Labor/2nd/3rd Weight Sex Type Anes PTL [place] A1 A5 Name Clin Term Term Last Filed Vital Signs Vital Sign Reading Time Taken Comments Blood Pressure 127/74 11/09/2024 9:48 AM EDT Pulse 80 11/09/2024 9:48 AM EDT Temperature 36.7 ??C (98.1 ??F) 11/09/2024 9:48 AM ED T Respiratory Rate - - Oxygen Saturation 96% 11/08/2024 8:22 AM EDT Inhaled Oxygen Concentration - - Weight 73 kg (161 lb) 11/21/2024 10:13 AM EDT Height 167.6 cm (5' 6 ) 11/21/2024 10:13 AM EDT Body Mass Index 25.99 11/21/2024 10:13 AM EDT Plan of Treatment Upcoming Encounters Date Type Department Care Team (Latest Contact Info) Description 12/06/2024 1:30 PM EDT Consult Internal Medicine - [place] [address] [place] [phone] Chyna Reina MD [address] [place] [address] 12/07/2024 9:15 AM EDT Consult Urogynecology - [address]/ [place] [address] Beti Greenwood MD [address] [place] [address] 12/17/2024 7:30 AM EDT Hospital Encounter [facility] Main OR [address] [place] [phone] Beti Greenwood MD [address] [place] [address] 12/17/2024 7:30 AM EDT - 12/17/2024 12:[address] [facility] [place] [address] [place] [phone] Beti Greenwood MD [address] [place] [id number] DAVINCI COLPOPEXY [[id number] (CPT??)] 01/02/2025 11:45 AM EDT Office Visit Urogynecology - [address] [place] [address] Kimberley Azul NP [address] [address] 02/01/2025 11:45 AM EDT Office Visit Urogynecology - [address] [place] [address] Beti Greenwood MD [address] [place] [address] 03/04/2025 9:40 AM EDT Consult [facility] [address] [place] [address] Juani Rhodes NP [address] [place] [address] 05/13/2025 8:00 AM EDT Office Visit Internal Medicine - [place] [address] [place] [address] Chyna Reina MD [address] [place] [address] Scheduled Procedures Name Priority Associated Diagnoses Date/Ti me COLPOPEXY ROBOT Female cystocele Rectocele Vaginal vault prolapse, posthysterectomy 12/17/2024 7:30 AM EDT CYSTOSCOPY Female cystocele Rectocele Vaginal vault prolapse, posthysterectomy 12/17/2024 7:30 AM EDT COLPORRHAPHY ANTERIOR POSTERIOR Female cystocele Rectocele Vaginal vault prolapse, posthysterectomy 12/17/2024 7:30 AM EDT Health Maintenance Due Date Last Done Comments Social Influencers of Health Screening 08/07/2022 Depression Screening 11/08/2025 11/08/2024, 07/12/20 23 Falls Risk Assessment 11/08/2025 11/08/2024, 023 Medicare Annual Wellness Visit 11/08/2025 11/08/2024 Breast Cancer Screening 11/21/2026 11/22/19, 02/27/2019, 03/30/2017 Colorectal Cancer Screening: Colonoscopy 05/26/2027 05/26/2022 Cholesterol Screening (Lipid Panel) 11/06/2029 11/06/2024, 09/09/2021 RSV Immunization Adult Patients (1 - 1-dose 75+ series) 2029 DTaP,Tdap,and Td Vaccines (4 - Td or Tdap) 07/12/2033 07/12/2023, 10/25/2012, 12/27/2002 Osteoporosis Screening (Bone Density Screening) 11/21/2034 11/21/2024 Hepatitis C Screening Completed 08/02/2016 Zoster Vaccines Completed 03/11/2021, 11/28, 05/02/2015, Additional history exists Pneumococcal Vaccine: 50+ Years Completed 07/12/2023, 05/13/2020 Influenza Vaccine Completed 04/16/2024, , 04/14/2023, Additional history exists COVID-19 Vaccine Completed 05/16/2024, , 05/07/2022, Additional history exists HIB Vaccines Aged Out [...] this topic Medical Devices Implanted Type Area Systems Analyst Engineer Device Identifier Shelf Expiration Date Model / Serial / Lot System Gynecare Tvt Exact 3mm Troc Retro Pubic Urnry Incont [facility] [id number] Implanted:Qty: 1 on 05/24/2023 by Beti Greenwood MD N/A: Vagina [facility] [employer] 12/27/2023 TVTRL / / [id number] Procedures Procedure Name Priority Date/Time Associated Diagnosis Comments BD BONE DENSITY DXA AXIAL SKELETON Routine 11/21/2024 10:44 AM EDT Post-menopause MG MAMMO DIGITAL SCREENING W LARRY BILAT Routine 11/21/2024 10:23 AM EDT Breast cancer screening by mammogram COMPLETE BLOOD COUNT Routine 11/06/2024 8:55 AM EDT Dysuria Referral of patient without examination or treatment Body mass index 25.0-25.9, adult Screening for diabetes mellitus Hyperlipemia COMPREHENSIVE METABOLIC PANEL Routine 11/06/2024 8:55 AM EDT Dysuria Referral of patient without examination or treatment Body mass index 25.0-25.9, adult Screening for diabetes mellitus Hyperlipemia HEMOGLOBIN A1C Routine 11/06/2024 8:55 AM EDT Dysuria Referral of patient without examination or treatment Body mass index 25.0-25.9, adult Screening for diabetes mellitus Hyperlipemia LIPID PANEL WITH REFLEX TO DIRECT LDL Routine 11/06/2024 8:55 AM EDT Dysuria Referral of patient without examination or treatment Body mass index 25.0-25.9, adult Screening for diabetes mellitus Hyperlipemia ECG 12-LEAD Routine 10/30/2024 10:19 AM EST SVT (supraventricular tachycardia) (CMS/HCC) Mitral valve prolapse Pure hypercholesterolemia DEPRESSION SCREENING Routine 07/12/2023 FALLS RISK ASSESSMENT Routine 07/12/2023 COLONOSCOPY Routine 05/26/2022 HEPATITIS C SCREENING Routine 08/02/2016 from Last 3 Months or Most Recently Relevant to Health Maintenance Results * BD Bone Density DXA Axial Skeleton (11/21/2024 10:44 AM EDT) Anatomical Region Laterality Modality Wrist, Hip, L-spine Bone Densito metry 11/24/2024 7:24 PM EDT Impressions 11/25/2024 5:53 PM EDT 1. ?? Osteoporosis. 2. ?? FRAX: 10 year probability for major osteoporotic fracture 19.0% and hip fracture 8.2%. * ??Recommend obtaining bilateral hips on follow up DXA scan since there are significant degenerative changes in lumbar spine. The World Health Organization defines a T-score at or above -1.0 standard deviations as normal, between -1.0 and -2.5 standard deviations as osteopenic, and at or below -2.5 standard deviations as osteoporotic. Report reviewed and signed by : Dr. Nicanor Lerner on 11/25/2024 5:53 PM. Workstation Name - [id number] -------- FINAL REPORT -------- Dictated By: Nicanor Lerner Dictated Date: 11/24/2024 19:24 ET Assigned Physician: Nicanor Lerner Reviewed and Electronically Signed By: Nicanor Lerner Signed Date: 11/25/2024 17:53 ET Workstation ID: [id number] Transcribed By: Self Edit Transcribed Date: 11/25/2024 16:26 ET Narrative 11/25/2024 5:53 PM EDT CLINICAL INDICATION / HISTORY: 69 years Female OTHER Post-menopause TECHNIQUE: Routine DXA scans of the lumbar spine and Left hip are acquired. CAMERA: [employer] ?? COMPARISON: None FINDINGS: Lumbar Spine L1-L4 bone mineral density is 1.245 gm/cm2, which corresponds with a T-score of 0.4 and a Z-score of 1.8. Artifactually elevated BMD of lumbar spine due to degenerative changes. Left Hip Neck bone mineral density is 0.617 gm/cm2, which corresponds to a T- score of -3.0 and a Z-score of -1.5. Left Hip Total bone mineral density is 0.636 gm/cm2, which corresponds to a T- score of -2.9 and a Z-score of -1.7. COMPARISON: None. Procedure Note Nicanor Lerner MD - 11/25/2024 CLINICAL INDICATION / HISTORY: 69 years Female OTHER Post-menopause TECHNIQUE: Routine DXA scans of the lumbar spine and Left hip areacquired. CAMERA: GE COMPARISON: None FINDINGS: Lumbar Spine L1-L4 bone mineral density is 1.245 gm/cm2, which correspondswith a T-score of 0.4 and a Z-score of 1.8. Artifactually elevated BMD oflumbar spine due to degenerative changes. Left Hip Neck bone mineral density is 0.617 gm/cm2, which corresponds to aT- score of -3.0 and a Z-score of -1.5. Left Hip Total bone mineral density is 0.636 gm/cm2, which corresponds toa T- score of -2.9 and a Z-score of -1.7. COMPARISON: None. IMPRESSION: 1. Osteoporosis. 2. FRAX: 10 year probability for major osteoporotic fracture 19.0% andhip fracture 8.2%. * Recommend obtaining bilateral hips on follow up DXA scan since thereare significant degenerative changes in lumbar spine. The World Health Organization defines a T-score at or above -1.0 standarddeviations as normal, between -1.0 and -2.5 standard deviations asosteopenic, and at or below -2.5 standard deviations as osteoporotic. Report reviewed and signed by : Dr. Nicanor Lerner on 11/25/2024 5:53 PM.Workstation Name - [id number] -------- FINAL REPORT -------- Dictated By: Nicanor Lerner Dictated Date: 11/24/2024 19:24 ET Assigned Physician: Nicanor Lerner Reviewed and Electronically Signed By: Nicanor Lerner Signed Date: 11/25/2024 17:53 ET Workstation ID: [id number] Transcribed By: Self Edit Transcribed Date: 11/25/2024 16:26 ET Chyna Reina MD IMG DXA PROCEDURES Final Result * MG Mammo Digital Screening w Larry bilat (11/21/2024 10:23 AM EDT) Anatomical Region Laterality Modality Breast Bilateral Mammography 11/27/2024 1:18 PM EDT Impressions 11/27/2024 1:23 PM EDT No mammographic evidence of malignancy. BI-RADS CATEGORY: 1 - NEGATIVE RECOMMENDATION: Screening bilateral mammogram is recommended in 1 year. The patient will receive a lay summary regarding their personal breast density per current federal guidelines. Exam Location: [facility], [address] [place] [address], [id number], . Report reviewed and signed by : Dr. Jessica Saldivar on 11/27/2024 1:23 PM. Workstation Name - [id number] -------- FINAL REPORT -------- Dictated By: Jessica Saldivar Dictated Date: 11/27/2024 13:18 ET Assigned Physician: Jessica Saldivar Reviewed and Electronically Signed By: Jessica Saldivar Signed Date: 11/27/2024 13:23 ET Workstation ID: [id number] Transcribed By: Self Edit Transcribed Date: 11/27/2024 13:18 ET Narrative 11/27/2024 1:23 PM EDT EXAM: MG MAMMO DIGITAL SCREENING W LARRY BILAT EXAM DATE: 11/21/2024 10:03 AM HISTORY: Screening COMPARISON: Multiple priors dating to 03/30/2017 ?? TECHNIQUE: Bilateral digital mammography using tomosynthesis technique was performed in the standard CC and MLO projections. Computer-aided detection was utilized in the interpretation of this examination. TISSUE DENSITY: B - There are scattered areas of fibroglandular density. FINDINGS: No suspicious masses, grouped microcalcifications, or areas of architectural distortion are seen. Procedure Note Jessica Saldivar MD - 11/27/2024 EXAM: MG MAMMO DIGITAL SCREENING W LARRY BILAT EXAM DATE: 11/21/2024 10:03 AM HISTORY: Screening COMPARISON: Multiple priors dating to 03/30/2017 TECHNIQUE: Bilateral digital mammography using tomosynthesis technique was performedin the standard CC and MLO projections. Computer-aided detection was utilized in the interpretation of thisexamination. TISSUE DENSITY: B - There are scattered areas of fibroglandular density. FINDINGS: No suspicious masses, grouped microcalcifications, or areas ofarchitectural distortion are seen. IMPRESSION: No mammographic evidence of malignancy. BI-RADS CATEGORY: 1 - NEGATIVE RECOMMENDATION: Screening bilateral mammogram is recommended in 1 year. The patient will receive a lay summary regarding their personal breastdensity per current federal guidelines. Exam Location: [facility], [address] [place] [address], [facility], . Report reviewed and signed by : Dr. Jessica Saldivar on 11/27/2024 1:23 PM.Workstation Name - [id number] -------- FINAL REPORT -------- Dictated By: Jessica Saldivar Dictated Date: 11/27/2024 13:18 ET Assigned Physician: Jessica Saldivar Reviewed and Electronically Signed By: Jessica Saldivar Signed Date: 11/27/2024 13:23 ET Workstation ID: [id number] Transcribed By: Self Edit Transcribed Date: 11/27/2024 13:18 ET us Chyna Reina MD IMG BI PROCEDURES Final R esult * (ABNORMAL) Lipid panel with reflex to direct LDL (11/06/2024 8:55 AM EDT) Cholesterol 255(H) 0 - 200 mg/dL LAB CHEMISTRY METHOD 11/06/2024 12:15 PM EDT [facility] Triglycerides 157(H) 0 - 150 mg/dL LAB CHEMISTRY METHOD 11/06/2024 12:15 PM EDT [facility] HDL 72 >=40 mg/dL LAB CHEMISTRY METHOD 11/06/2024 12:15 PM EDT [facility] LDL Calculated 152(H) 0 - 100 mg/dL LAB CHEMISTRY METHOD 11/06/2024 12:15 PM EDT [facility] VLDL Cholesterol Mert 31.4 mg/dL LAB CHEMISTRY METHOD 11/06/2024 12:15 PM EDT [facility] Non HDL Chol. (LDL+VLDL) 183(H) <145 mg/dL LAB CHEMISTRY METHOD 11/06/2024 12:15 PM EDT [facility] Chol/HDL Ratio 3.5 0.0 - 4.4 LAB CHEMISTRY METHOD 11/06/2024 12:15 PM EDT [facility] Blood Venous blood specimen / Unknown Venipuncture / Unknown 11/06/2024 8:55 AM EDT 11/06/2024 8:55 AM EDT us Chyna Reina MD LAB BLOOD ORDERABLES Are l Result [facility] [address] [place] [address], [place] [phone] * (ABNORMAL) Complete blood count (11/06/2024 8:55 AM EDT) [facility] WBC 5.8 4.8 - 10.8 K/mcL LAB HEMETOLOGY [facility] RBC 4.30 3.80 - 4.80 M/mcL LAB HEMETOLOGY METHOD 11/06[facility]2024 12[facility] Hemoglobin 14.6 11.5 - 16.0 g/dL LAB HEMETOLOGY METHOD 11/06[facility]2024 12[facility] Hematocrit 44.1 35.0 - 47.0 % LAB HEMETOLOGY METHOD 11/06/2024 12:[facility] MCV 101.6(H) 79.0 - 98.0 FL LAB HEMETOLOGY METHOD 11/06/2024 12:22 PM [facility] MCH 33.6(H) 27.0 - 32.0 pcg LAB HEMETOLOGY METHOD 11/06/2024 12:22 PM [facility] MCHC 33.1 32.0 - 37.0 g/dL LAB HEMETOLOGY METHOD 11/06/2024 12:22 PM [facility] RDW 12.6 11.0 - 15.0 % LAB HEMETOLOGY METHOD 11/06/2024 12:22 PM [facility] Platelets 383 130 - 400 K/mcL LAB HEMETOLOGY METHOD 11/06/2024 12:22 PM [facility] MPV 9.3 7.0 - 11.0 [place] LAB [facility]OLOG[facility] NRBC 0.0 <1.0 % LAB HEMETOLOGY METHOD 11/06/2024 12:[facility] NRBC Absolute 0.00 <0.10 K/mcL LAB HEMETOLOGY METHOD 11/06/2024 12:22 PM EDT [facility] Blood Venous blood specimen / Unknown Venipuncture / Unknown 11/06/2024 8:55 AM EDT 11/06/2024 8:55 AM EDT Chyna Reina MD LAB BLOOD ORDERABLES Rae l Result Performing Organization Address [facility]/ZIP Co de Phone Number [facility] [address] [place] [address], [place] [phone] * Hemoglobin A1c (11/06/2024 8:55 AM EDT) Pathologist [facility] Hemoglobin A1C 5.5 <6.5 % LAB CHEMISTRY METHOD 11/06/2024 2:29 PM EDT [facility] Mean Bld Glu Estim. 111 mg/dL LAB CHEMISTRY METHOD 11/06/2024 2:29 PM EDT [facility] Blood Venous blood specimen / Unknown Venipuncture / Unknown 11/06/2024 8:55 AM EDT 11/06/2024 8:55 AM EDT Chyna Reina MD LAB BLOOD ORDERABLES Rae l Result Performing Organization Address [facility] Co de Phone Number [facility] [address] [place] [address], [place] [phone] * (ABNORMAL) Comprehensive metabolic panel (11/06/2024 8:55 AM EDT) Pathologist [facility] Sodium 138 133 - 145 mmol/L LAB CHEMISTRY METHOD 11/06/2024 12:51 PM EDT [facility] Potassium 4.3 3.5 - 5.5 mmol/L LAB CHEMISTRY METHOD 11/06/2024 12:51 PM EDT [facility] Chloride 107 96 - 110 mmol/L LAB CHEMISTRY METHOD 11/06/2024 12:51 PM EDT [facility] CO2 24 21 - 32 mmol/L LAB CHEMISTRY METHOD 11/06/2024 12:51 PM [facility] Anion Gap 7 3 - 11 LAB CHEMISTRY METHOD 11/06/2024 12:51 PM [facility] Glucose 101(H) 70 - 100 mg/dL LAB CHEMISTRY METHOD 11/06/2024 12:51 PM [facility] BUN 13 5 - 25 mg/dL LAB CHEMISTRY METHOD 11/06/2024 12:51 PM [facility] Creatinine 0.61 0.50 - 1.10 mg/dL LAB CHEMISTRY METHOD 11/06/2024 12:51 PM [facility] eGFR 97 >=60 mL/min/1. 73m2 LAB CHEMISTRY METHOD 11/06/2024 12:51 PM [facility] Comment:Calculation based on the??Chronic Kidney Disease Epidemiology Collaboration (CKD-EPI) equation refit??without adjustment for race. BUN/Creatinine Ratio 21.3 LAB CHEMISTRY METHOD 11/06/2024 12:51 PM [facility] Calcium 9.6 8.5 - 10.5 mg/dL LAB CHEMISTRY METHOD 11/06/2024 12:51 PM [facility] AST (SGOT) 18 10 - 42 unit/L LAB CHEMISTRY METHOD 11/06/2024 12:51 PM [facility] ALT (SGPT) 24 10 - 60 unit/L LAB CHEMISTRY METHOD 11/06/2024 12:51 PM [facility] Alkaline Phosphatase 84 42 - 121 unit/L LAB CHEMISTRY METHOD 11/06/2024 12:51 PM [facility] Total Protein 7.1 6.0 - 8.0 g/dL LAB CHEMISTRY METHOD 11/06/2024 12:51 PM [facility] Albumin 4.2 3.2 - 5.0 g/dL LAB CHEMISTRY METHOD 11/06/2024 12:51 PM EDT [facility] Total Bilirubin 0.6 0.0 - 1.4 mg/dL LAB CHEMISTRY METHOD 11/06/2024 12:51 PM EDT [facility] Blood Venous blood specimen / Unknown Venipuncture / Unknown 11/06/2024 8:55 AM EDT 11/06/2024 8:55 AM EDT Chyna Reina MD LAB BLOOD ORDERABLES Rae l Result [facility] [address] [place] [address], [place] [phone] * ECG 12 lead (10/30/2024 10:19 AM EST) Ventricular Rate ECG 78 BPM GEMUSE Atrial Rate 78 BPM GEMUSE P-R Interval 182 ms GEMUSE QRS Duration 68 ms GEMUSE Q-T Interval 372 ms GEMUSE QTc 424 ms GEMUSE P Wave Margie 72 degrees GEMUSE R Margie 30 degrees GEMUSE T Margie 36 degrees GEMUSE ECG Interpretation Normal sinus rhythm Normal ECG When compared with ECG of 20-JUL-2021 15:39, No significant change was found Confirmed by EWA CLAIRE ([id number]) on 10/30/2024 11:15:14 AM GEMUSE 10/30/2024 10:1 9 AM EST 10/30/2024 11:15 AM EST Ewa Claire MD ECG ORDERABLES Final Result GEMUSE * Falls Risk Assessment (07/12/2023) Pathologist [facility] Falls Risk Assessment abstracted Historical Provider HEALTH MAINTENANCE Final Result * Depression Screening (07/12/2023) Depression Screening abstracted Historical Provider HEALTH MAINTENANCE Final Result * Colonoscopy (05/26/2022) Colonoscopy no interpretation , abstracted Anatomical Region Laterality Modality Other Historical Provider HEALTH MAINTENANCE Final Result * Hepatitis C Screening (08/02/2016) Pathologist [facility] Hepatitis C Screening abstracted Historical Provider HEALTH MAINTENANCE Final Result from Last 3 Months or Most Recently Relevant to Health Maintenance Insurance MEDICARE [facility] Care Teams Spray Gun Striper Relationship Specialty Start Date End Date Chyna eRina MD [address] [place] [address] PCP - General Family Medicine 10/26/24
--- OUTSIDE RECORDS SUMMARY | 2024-11-30 08:28 | XMS_ITS | Encounter Summary ---
Author Organization [facility] Address [address] [place] [address] Care Team Providers Care State Auditor Name Role Phone Samuel Cornelius Primary Care Provider Kristina Gilbert MD Primary Care Provider UnavailScot Hansen MD Primary Care Provider Unavailable Lukas Bradford MD Primary Care Provider Jan Juárez DO Primary Care Provider Unavaila Lane Villalobos MD Unavailable Unavailable Beti Greenwood MD Unavailable Juani Rhodes NP Unavailable [phone] Letitia Khalil MD Primary Care Provider Un available [facility], Pcp Primary Care Provider Unavailabl e Encounter Details Date Type Department Care Team Description 09/18/2005 [facility] Medical Records [address] [place] [address] Abstract, Provider Social History Tobacco Use Types [...] How often do you attend chur or yazidi services? Never 07/12/2023 Do you belong to [...] on filedocumented in this encounter Care Teams State Auditor Relationship Specialty Start Date End Date Samuel Cornelius PCP - General 08/29/05 12/24/15 Kristina Chatman MD PCP - General Internal Medicine 12/25/15 01/22/16 Scot Owen MD PCP - General Internal Medicine 01/23/1606/30/21 Lukas Bradford MD PCP - General Internal Medicine 07/01/21 08/10/21 Jan Palomino DO PCP - General Internal Medicine 08/11/21 11/16/23 Letitia Khalil MD [address] [place] [address] [facility] [address] PCP - General Internal Medicine 11/17/23 06/21/24 [facility], [address] [place] [address] PCP - General Internal Medicine 06/22/24 Lane Valdes MD Specialist Cardiovascular Disease 01/14/22 Beti Greenwood MD [address] [facility] [place] [address] UROGYNECOLOGY 07/07/23 Juani Rhodes NP [address] [facility] [place] [address] Cardiology 07/07/23 documented as of this encounter
--- OUTSIDE RECORDS SUMMARY | 2024-11-30 08:29 | XMS_ITS | Encounter Summary ---
Author Organization [facility] Address [address] [place] [address] Care Team Providers Care Street Railway Line Installer Name Role Phone Scot Owen MD Primary Care Provider Unavailable Lukas Bradford MD Primary Care Provider Jan Juárez DO Primary Care Provider UnavailLane Banerjee MD Unavailable Unavailable Beti Greenwood MD Unavailable Juani Rhodes NP Unavailable [phone] Letitia Khalil MD Primary Care Provider Un available [facility], Pcp Primary Care Provider Unavailabl e Encounter Details Date Type Department Care Team Description 03/16/2017 [facility] Medical Records [address] [place] [address] Abstract, Provider Social History Tobacco Use Types [...] often do you attend chur ch or nondenominational services? Never 07/12/2023 Do you belong to any clubs o r organizations such as episcopalian groups, unions, fraternal or athletic groups, or [...] place to sleep or slept in a retirement (including now)? No 07/12/2023 Sex Assigned at Date Recorded Not on file Job Start Date Occupation Industry Not on file Not on file Not on file documented as of this encounter Plan of Treatment Not on file documented as of this encounter Visit Diagnoses Not on filedocumented in this encounter Care Teams Street Railway Line Installer Relationship Specialty Start Date End Date Scot Owen MD PCP - General Internal Medicine 01/23/1606/30/21 Lukas Bradford MD PCP - General Internal Medicine 07/01/21 08/10/21 Jan Palomino DO PCP - General Internal Medicine 08/11/21 11/16/23 Letitia Khalil MD [address] [place] [address] [place] [address] PCP - General Internal Medicine 11/17/23 06/21/24 [facility] Pcp [address] [place] [address] [place] [address] PCP - General Internal Medicine 06/22/24 Lane Valdes MD Specialist Cardiovascular Disease 01/14/22 Beti Greenwood MD [address] [place] [address] [place] [address] UROGYNECOLOGY 07/07/23 Juani Rhodes NP [address] [facility] [place] [address] Cardiology 07/07/23 documented as of this encounter
--- OUTSIDE RECORDS SUMMARY | 2024-11-30 08:29 | XMS_ITS | Encounter Summary ---
Author Organization [facility] Address [address] [place] [address] Care Team Providers Care Airplane Cleaner Name Role Phone KennyelikennethAlexel Abebe Primary Care Provider Kristina Gilbert MD Primary Care Provider UnavailScot Hansen MD Primary Care Provider Unavailable Lukas Bradford MD Primary Care Provider Jan Juárez DO Primary Care Provider Unavaila Lane Villalobos MD Unavailable Unavailable Beti Greenwood MD Unavailable Juani Rhodes NP Unavailable [phone] Letitia Khalil MD Primary Care Provider Un available [facility], Pcp Primary Care Provider Unavailabl e Reason for Visit * Reason Onset Date Comments Special Procedure 09/29/2012 Encounter Details Date Type Department Care Team Description 09/29/[address] [address] Makayla Giraldo PA-C Special Procedure Social History Tobacco Use Types Packs/Day Years Used Date Smoking Tobacco: Former Cigarettes 0.5 7 Q uit: 03/05/2012 Smokeless Tobacco: Never Alcohol Use Standard [...] week 07/12/2023 How often do you attend [facility] or taoist services? Never 07/12/2023 Do you belong to any clubs o r organizations such as methodist groups, unions, [employer] or athletic groups, or school groups? Yes [...] place to sleep or slept in a residential (including now)? No 07/12/2023 Sex Assigned at Date Recorded Not on file Job Start Date Occupation Industry Not on file Not on file Not on file documented as of this encounter Miscellaneous Notes * Telephone Encounter - Gege Hill M.A. - 09/29/2012 10:34 AM EST Patient would like to have a Bilateral L4 [facility] at [facility] Last one in 06/09 (Appointment Booked for 10/06/2012) documented in this encounter Plan of Treatment Not on file documented as of this encounter Visit Diagnoses Not on filedocumented in this encounter Care Teams Airplane Cleaner Relationship Specialty Start Date End Date Samuel Cornelius PCP - General 08/29/05 12/24/15 Kristina Chatman MD PCP - General Internal Medicine 12/25/15 01/22/16 Scot Owen MD PCP - General Internal Medicine 01/23/1606/30/21 Lukas Bradford MD PCP - General Internal Medicine 07/01/21 08/10/21 Jan Palomino DO PCP - General Internal Medicine 08/11/21 11/16/23 Letitia Khalil MD [address] [facility] [place] [address] PCP - General Internal Medicine 11/17/23 06/21/24 [facility], [address] [place] [address] PCP - General Internal Medicine 06/22/24 Lane Valdes MD Specialist Cardiovascular Disease 01/14/22 Beti Greenwood MD [address] [facility] [place] [address] UROGYNECOLOGY 07/07/23 Juani Rhodes NP [address] [facility] [place] [address] Cardiology 07/07/23 documented as of this encounter
--- OUTSIDE RECORDS SUMMARY | 2024-11-30 08:29 | XMS_ITS | Encounter Summary ---
Author Organization [facility] Address [address] [place] [address] Care Team Providers Care Jai Alai Player Name Role Phone Scot Owen MD Primary Care Provider Unavailable Lukas Bradford MD Primary Care Provider Jan Juárez DO Primary Care Provider UnavailLane Banerjee MD Unavailable Unavailable Beti Greenwood MD Unavailable Juani Rhodes NP Unavailable [phone] Letitia Khalil MD Primary Care Provider Un available [facility] [address] [facility], Pcp Primary Care Provider Unavailabl e Encounter Details Date Type Department Care Team Description 08/18/2017 [facility] Medical Records [address] [place] [address] Abstract, Provider Social History Tobacco Use Types [...] often do you attend chur ch or congregation services? Never 07/12/2023 Do you belong to [...] on filedocumented in this encounter Care Teams Jai Alai Player Relationship Specialty Start Date End Date Scot Owen MD PCP - General Internal Medicine 01/23/1606/30/21 Lukas Bradford MD PCP - General Internal Medicine 07/01/21 08/10/21 Jan Paolmino DO PCP - General Internal Medicine 08/11/21 11/16/23 Letitia Khalil MD [address] [place] [address] [place] [address] PCP - General Internal Medicine 11/17/23 06/21/24 [facility] Pcp [address] [place] [address] [place] [address] PCP - General Internal Medicine 06/22/24 Lane Valdes MD Specialist Cardiovascular Disease 01/14/22 Beti Greenwood MD [address] [place] [address] [place] [address] UROGYNECOLOGY 07/07/23 Juani Rhodes NP [address] [facility] [place] [address] Cardiology 07/07/23 documented as of this encounter
--- OUTSIDE RECORDS SUMMARY | 2024-11-30 08:29 | XMS_ITS | Encounter Summary ---
Author Organization [facility] Address [address] [place] [address] Care Team Providers Care Speech Language Pathology Assistant Name Role Phone Jan Palomino DO Primary Care Provider UnavailLane Banerjee MD Unavailable Unavailable Beti Greenwood MD Unavailable Juani Rhodes NP Unavailable [phone] Letitia Khalil MD Primary Care Provider Un available [facility], Pcp Primary Care Provider Unavailabl e Encounter Details Date Type Department Care Team Description 01/27/2022 [facility] Medical Records [address] [place] [id number] Abstract, Provider Social History Tobacco Use Types [...] often do you attend chur ch or latter day services? Never 07/12/2023 Do [...] suspected to have Coronavirus/COVID-19? No / Unsure 01/13/2022 2:56 PM EDT documented as of this encounter Plan of Treatment Not on file documented as of this encounter Visit Diagnoses Not on filedocumented in this encounter Care Teams Speech Language Pathology Assistant Relationship Specialty Start Date End Date Jan Palomino DO PCP - General Internal Medicine 08/11/21 11/16/23 Letitia Khalil MD [address] [place] [address] [place] [address] PCP - General Internal Medicine 11/17/23 06/21/24 [facility], Pcp [address] [place] [address] [place] [address] PCP - General Internal Medicine 06/22/24 Lane Valdes MD Specialist Cardiovascular Disease 01/14/22 Beti Greenwood MD [address] [facility] [place] [address] UROGYNECOLOGY 07/07/23 Juani Rhodes NP [address] [facility] [place] [address] Cardiology 07/07/23 documented as of this encounter
--- OUTSIDE RECORDS SUMMARY | 2024-11-30 08:29 | XMS_ITS | Encounter Summary ---
Author Organization [facility] Address [address] [place] [address] Care Team Providers Care Golf Club Head Former Name Role Phone Scot Owen MD Primary Care Provider Unavailable Lukas Bradford MD Primary Care Provider Jan Juárez DO Primary Care Provider UnavailLane Banerjee MD Unavailable Unavailable Beti Greenwood MD Unavailable Juani Rhodes NP Unavailable [phone] Letitia Khalil MD Primary Care Provider Un available [facility], Pcp Primary Care Provider Unavailabl e Encounter Details Date Type Department Care Team Description 01/19/2017 [facility] Medical Records [address] [place] [address] Abstract, Provider Social History Tobacco Use Types [...] often do you attend chur ch or quaker services? Never 07/12/2023 Do you belong to any clubs o r organizations such as religion groups, unions, fraternal or athletic groups, or [...] on filedocumented in this encounter Care Teams Golf Club Head Former Relationship Specialty Start Date End Date Scot Owen MD PCP - General Internal Medicine 01/23/1606/30/21 Lukas Bradford MD PCP - General Internal Medicine 07/01/21 08/10/21 Jan Palomino DO PCP - General Internal Medicine 08/11/21 11/16/23 Letitia Khalil MD [address] [place] [address] [place] [address] PCP - General Internal Medicine 11/17/23 06/21/24 [facility] Pcp [address] [place] [address] [place] [address] PCP - General Internal Medicine 06/22/24 Lane Valdes MD Specialist Cardiovascular Disease 01/14/22 Beti Greenwood MD [address] [place] [address] [place] [address] UROGYNECOLOGY 07/07/23 Juani Rhodes NP [address] [facility] [place] [address] Cardiology 07/07/23 documented as of this encounter
--- OUTSIDE RECORDS SUMMARY | 2024-11-30 08:29 | XMS_ITS | Encounter Summary ---
Author Organization [facility] Address [address] [place] [address] Care Team Providers Care Surveillance Observer Name Role Phone Scot Owen MD Primary Care Provider Unavailable Lukas Bradford MD Primary Care Provider Jan Juárez DO Primary Care Provider UnavailLane Banerjee MD Unavailable Unavailable Beti Greenwood MD Unavailable Juani Rhodes NP Unavailable [phone] Letitia Khalil MD Primary Care Provider Un available [facility], Pcp Primary Care Provider Unavailabl e Encounter Details Date Type Department Care Team Description 02/26/2021 [facility] Medical Records [address] [place] [address] Abstract, Provider Social History Tobacco Use Types [...] often do you attend chur ch or yazdanism services? Never 07/12/2023 Do you belong to [...] on filedocumented in this encounter Care Teams Surveillance Observer Relationship Specialty Start Date End Date Scot Owen MD PCP - General Internal Medicine 01/23/1606/30/21 Lukas Bradford MD PCP - General Internal Medicine 07/01/21 08/10/21 Jan Palomino DO PCP - General Internal Medicine 08/11/21 11/16/23 Letitia Khalil MD [address] [place] [address] [facility] [place] [address] PCP - General Internal Medicine 11/17/23 06/21/24 [facility], Pcp [address] [place] [address] [facility] [place] [address] PCP - General Internal Medicine 06/22/24 Lane Valdes MD Specialist Cardiovascular Disease 01/14/22 Beti Greenwood MD [address] [place], [place] [address] [place] [address] UROGYNECOLOGY 07/07/23 Juani Rhodes, BEAM RACKER [address] [facility] [place] [address] Cardiology 07/07/23 documented as of this encounter
--- OUTSIDE RECORDS SUMMARY | 2024-11-30 08:29 | XMS_ITS | Encounter Summary ---
Author Organization [facility] Address [address] [place] [address] Care Team Providers Care Grab Jack Man Name Role Phone Samuel Cornelius Primary Care Provider Kristina Gilbert MD Primary Care Provider UnavailScot Hansen MD Primary Care Provider Unavailable Lukas Bradford MD Primary Care Provider Jan Juárez DO Primary Care Provider Unavaila Lane Villalobos MD Unavailable Unavailable Beti Greenwood MD Unavailable Juani Rhodes NP Unavailable [phone] Letitia Khalil MD Primary Care Provider Un available [facility], Pcp Primary Care Provider Unavailabl e Reason for Visit * Reason Comments E-prescribe Rx Request Encounter Details Date Type Department Care Team Description 11/06/2012 Refill Adult Medicine [address] [address] Samuel Cornelius E-prescribe Rx Request Social History Tobacco Use [...] How often do you attend chur or jehovah's witness services? Never 07/12/2023 Do [...] encounter Miscellaneous Notes * Telephone Encounter - Selene Boyle L.P.N. - 11/07/2012 9:26 AM EDT Hard rx faxed to pharmacy Message left for patient to return my call. Needs to be informed of Kanchan note below * Telephone Encounter - Ronen Antonio PA-C - 11/07/2012 8:34 AM EDT I have refilled the medication however, she will have to touch base with her PCP and potentially beput on a [facility] contract before I can refill the medication again. Thank you. * Telephone Encounter - Jessica Morales M.A. - 11/06/2012 4:48 PM EDT Last filled 09/01/12 #45 no csc please advise * Telephone Encounter - Yi Humphrey - 11/06/2012 4:45 PM EDT WHEN WAS THE PATIENT'S LAST APPOINTMENT IN ADULT MEDICINE? 10/25/2012 WHEN WAS THE LAST TIME THE PATIENT SAW THEIR PCP? Same as above Does patient have an upcoming appointment? no (THE MEDICATION REQUESTED IS ON THE MED LIST ABOVE) All of the medications requested were on the CURRENT MEDS list Did you check the Pharmacy information above?: YES Patient wants: 45 Patient would like script to be: E-PRESCRIBED/FAXED TO PHARMACY Is this a mail order prescription request ? NO Indicate how soon the patient needs the script: BY THE END OF THE DAY Patients current insurance carrier is: Payor: [facility]/HMO FFS Plan: [id number] BLUE NE $20 Product Type:HMO [id number] documented in this encounter Plan of Treatment Not on file documented as of this encounter Visit Diagnoses Not on filedocumented in this encounter Care Teams Grab Jack Man Relationship Specialty Start Date End Date Samuel Cornelius PCP - General 08/29/05 12/24/15 Kristina Chatman MD PCP - General Internal Medicine 12/25/15 01/22/16 Scot Owen MD PCP - General Internal Medicine 01/23/1606/30/21 Lukas Bradford MD PCP - General Internal Medicine 07/01/21 08/10/21 Jan Palomino DO PCP - General Internal Medicine 08/11/21 11/16/23 Letitia Khalil MD [address] [facility] [place] [address] PCP - General Internal Medicine 11/17/23 06/21/24 [facility], Pcp [address] [place] [address] [place] [address] PCP - General Internal Medicine 06/22/24 Lane Valdes MD Specialist Cardiovascular Disease 01/14/22 Beti Greenwood MD [address] [facility] [place] [address] UROGYNECOLOGY 07/07/23 Juani Rhodes, ISAC [address] [facility] [place] [address] Cardiology 07/07/23 documented as of this encounter
--- OUTSIDE RECORDS SUMMARY | 2024-11-30 08:29 | XMS_ITS | Encounter Summary ---
[facility] Organization [facility] Address [address] [place] [address] Care Team Providers Care Transformer Maker Name Role Phone Jan Palomino DO Primary Care Provider UnavailLane Banerjee MD Unavailable Unavailable Beti Greenwood MD Unavailable Juani Rhodes NP Unavailable [phone] Letitia Khalil MD Primary Care Provider Un available [facility], Pcp Primary Care Provider Unavailabl e Encounter Details Date Type Department Care Team Description 03/09/2022 Pt. Non Urgent Medic al Question Adult Medicine - [place] [address] [place] [address] Yelena Garcia MD [address] [place] [address] Social History Tobacco Use Types Packs/Day Years [...] often do you attend chur ch or mandaeism services? Never 07/12/2023 Do you [...] place to sleep or slept in a fpc (including now)? No 07/12/2023 Sex Assigned at Date Recorded Not on file Job Start Date Occupation Industry Not on file Not on file Not on file COVID-19 Exposure Response Date Recorded In the last 10 days, have yo u been in contact with someone who was confirmed or suspected to have Coronavirus/COVID-19? No / Unsure 03/12/2022 7:38 AM EDT documented as of this encounter Plan of Treatment Not on file documented as of this encounter Visit Diagnoses Not on filedocumented in this encounter Care Teams Transformer Maker Relationship Specialty Start Date End Date Jan Palomino DO PCP - General Internal Medicine 08/11/21 11/16/23 Letitia Khalil MD 4 [facility] [place] [address] PCP - General Internal Medicine 11/17/23 06/21/24 [facility], Pcp [address] [place], [place] [address] [place] [address] PCP - General Internal Medicine 06/22/24 Lane Valdes MD Specialist Cardiovascular Disease 01/14/22 Beti Greenwood MD [address] [place] [address] [place] [address] UROGYNECOLOGY 07/07/23 Juani Rhodes, ISAC 444 [facility] [place] [address] Cardiology 07/07/23 documented as of this encounter
--- OUTSIDE RECORDS SUMMARY | 2024-11-30 08:29 | XMS_ITS | Encounter Summary ---
Author Organization [facility] Address [address] [place] [address] Care Team Providers Care Maintenance Shop Technician Name Role Phone Scot Owen MD Primary Care Provider Unavailable Lukas Bradford MD Primary Care Provider Jan Juárez DO Primary Care Provider UnavailLane Banerjee MD Unavailable Unavailable Beti Greenwood MD Unavailable Juani Rhodes NP Unavailable [phone] Letitia Khalil MD Primary Care Provider Un available [facility], Pcp Primary Care Provider Unavailabl e Encounter Details Date Type Department Care Team Description 11/02/2020 Refill Adult Medicine - [place] [address] [place] [address] Magno Willoughby MD [address] [place] [address] Social History Tobacco Use Types Packs/Day Years [...] Telephone Encounter - Katia Arroyo L.P.N. - 11/12/2020 4:49 PM EDT Patient pickle solution maker * Telephone Encounter - Sushma Crespo - 11/03/2020 12:15 PM EST Pt calling back and is looking to pick this up bsr sees this has been signed please place in pt pickle solution maker and call pt when complete pt call number is [phone] * Telephone Encounter - Katia Arroyo L.P.N. - 11/03/2020 8:31 AM EST Last seen 09/25 Next - NONE [employer] to covering. Controlled substance contract and last issue date of medication reviewed. Patient is due for medication. Lab Results Component Value Date URBENZO NONE DETECTED 11/05/2019 UROPIATES POSITIVE 11/05/2019 URBARBITUATE NONE DETECTED 11/05/2019 PAINAMPHETAM NONE DETECTED 11/05/2019 PAINCOCAINE NONE DETECTED 11/05/2019 PAINCANNABIN NONE DETECTED 11/05/2019 Medication request pended for your review. documented in this encounter Plan of Treatment Not on file documented as of this encounter Visit Diagnoses Not on filedocumented in this encounter Care Teams Maintenance Shop Technician Relationship Specialty Start Date End Date Scot Owen MD PCP - General Internal Medicine 01/23/1606/30/21 Lukas Bradford MD PCP - General Internal Medicine 07/01/21 08/10/21 Jan Palomino DO PCP - General Internal Medicine 08/11/21 11/16/23 Letitia Khalil MD [address] [place] [address] [place] [address] PCP - General Internal Medicine 11/17/23 06/21/24 [facility], Pcp [address] [place] [address] [place] [address] PCP - General Internal Medicine 06/22/24 Lane Valdes MD Specialist Cardiovascular Disease 01/14/22 Beti Greenwood MD [address] [place] [address] [place] [address] UROGYNECOLOGY 07/07/23 Juani Rhodes NP 444 [facility] [place] [address] Cardiology 07/07/23 documented as of this encounter
--- OUTSIDE RECORDS SUMMARY | 2024-11-30 08:29 | XMS_ITS | Encounter Summary ---
Author Organization [facility] Address [address] [place] [address] Care Team Providers Care Diver Tender Name Role Phone Samuel Cornelius Primary Care Provider Kristina Gilbert MD Primary Care Provider UnavailScot Hansen MD Primary Care Provider Unavailable Lukas Bradford MD Primary Care Provider Jan Juárez DO Primary Care Provider Unavaila Lane Villalobos MD Unavailable Unavailable Beti Greenwood MD Unavailable Juani Rhodes NP Unavailable [phone] Letitia Khalil MD Primary Care Provider Un available [facility], Pcp Primary Care Provider Unavailabl e Encounter Details Date Type Department Care Team Description 11/22/2012 Controlled Substance Plan Medical Records [address] [place] [address] Abstract, Provider Social History Tobacco Use Types [...] often do you attend chur ch or druze services? Never 07/12/2023 Do you belong to any clubs o r organizations such as mu-ism groups, unions, fraternal or athletic groups, or [...] on filedocumented in this encounter Care Teams Diver Tender Relationship Specialty Start Date End Date Samuel Cornelius PCP - General 08/29/05 12/24/15 Kristina Chatman MD PCP - General Internal Medicine 12/25/15 01/22/16 Scot Owen MD PCP - General Internal Medicine 01/23/1606/30/21 Lukas Bradford MD PCP - General Internal Medicine 07/01/21 08/10/21 Jan Palomino DO PCP - General Internal Medicine 08/11/21 11/16/23 Letitia Khalil MD [address] [place] [address] [place] [address] PCP - General Internal Medicine 11/17/23 06/21/24 [facility], Pcp [address] [place] [address] [place] [address] PCP - General Internal Medicine 06/22/24 Lane Valdes MD Specialist Cardiovascular Disease 01/14/22 Beti Greenwood MD 444 [facility] [place] [address] UROGYNECOLOGY 07/07/23 Juani Rhodes NP 444 [facility] [place] [address] Cardiology 07/07/23 documented as of this encounter
--- OUTSIDE RECORDS SUMMARY | 2024-11-30 08:29 | XMS_ITS | Encounter Summary ---
Author Organization [facility] Address [address] [place] [address] Care Team Providers Care Women'S Ministry Director Name Role Phone Jan Palomino DO Primary Care Provider UnavailLane Banerjee MD Unavailable Unavailable Beti Greenwood MD Unavailable Juani Rhodes NP Unavailable [phone] Letitia Khalil MD Primary Care Provider Un available [facility], Pcp Primary Care Provider Unavailabl e Encounter Details Date Type Department Care Team Description 03/09/2022 Pt. Non Urgent Medic al Question Adult Medicine - [place] [address] [place] [address] Yelena Garcia MD [address] [place] [address] Social History Tobacco Use Types Packs/Day Years [...] often do you attend chur ch or hindu services? Never 07/12/2023 Do you [...] on filedocumented in this encounter Care Teams Women'S Ministry Director Relationship Specialty Start Date End Date Jan Palomino DO PCP - General Internal Medicine 08/11/21 11/16/23 Letitia Khalil MD 4 [facility] [place] [address] PCP - General Internal Medicine 11/17/23 06/21/24 [facility], Pcp [address] [place], [place] [address] [place] [address] PCP - General Internal Medicine 06/22/24 Lane Valdes MD Specialist Cardiovascular Disease 01/14/22 Beti Greenwood MD [address] [place] [address] [place] [address] UROGYNECOLOGY 07/07/23 Juani Rhodes, ISAC 444 [facility] [place] [address] Cardiology 07/07/23 documented as of this encounter
--- OUTSIDE RECORDS SUMMARY | 2024-11-30 08:29 | XMS_ITS | Encounter Summary ---
Author Organization [facility] Address [address] [place] [address] Care Team Providers Care Journeyman Wireman Name Role Phone Lukas Bradford MD Primary Care Provider Jan Juárez DO Primary Care Provider UnavailLane Banerjee MD Unavailable Unavailable Beti Greenwood MD Unavailable Juani Rhodes NP Unavailable [phone] Letitia Khalil MD Primary Care Provider Un available [facility], Pcp Primary Care Provider Unavailabl e Encounter Details Date Type Department Care Team Description 07/14/2021 Pt. Non Urgent Medic al Question Adult Medicine - [address] [address] Scot Owen MD Social History Tobacco Use [...] any clubs o r organizations such as voodoo groups, unions, fraternal or athletic groups, or [...] Neha Wright To: Clovis Owen Sent: 07/14/2021 6:46 AM EST Subject: prescription Dr Bradford told me she will not take anyone on a narcotics program and basically said good luck. What do i do now? I have no doctor and where do i go to get my prescription for my pain meds. I just can't be dropped without any meds Please tell me what to do. I have seen many back doctors and been toldno surgery will help me and pain meds are the only thing that will help me. PLease tell me what doctor will pick pack worker my contract? documented in this encounter Plan of Treatment Not on file documented as of this encounter Visit Diagnoses Not on filedocumented in this encounter Care Teams Journeyman Wireman Relationship Specialty Start Date End Date Lukas Bradford MD PCP - General Internal Medicine 07/01/21 08/10/21 Jan Palomino DO PCP - General Internal Medicine 08/11/21 11/16/23 Letitia Khalil MD 444 [facility] [place] [address] PCP - General Internal Medicine 11/17/23 06/21/24 [facility], Pcp 4 [facility] [place] [address] PCP - General Internal Medicine 06/22/24 Lane Valdes MD Specialist Cardiovascular Disease 01/14/22 Beti Greenwood MD 444 [facility] [place] [address] UROGYNECOLOGY 07/07/23 Juani Rhodes NP [address] [facility] [place] [address] Cardiology 07/07/23 documented as of this encounter
--- OUTSIDE RECORDS SUMMARY | 2024-11-30 08:29 | XMS_ITS | Encounter Summary ---
Author Organization [facility] Address [address] [place] [address] Care Team Providers Care Mechanic'S Assistant Name Role Phone Jan Palomino DO Primary Care Provider UnavailLane Banerjee MD Unavailable Unavailable Beti Greenwood MD Unavailable Juani Rhodes NP Unavailable [phone] Letitia Khalil MD Primary Care Provider Un available [facility], Pcp Primary Care Provider Unavailabl e Encounter Details Date Type Department Care Team Description 04/22/2022 Pt. Non Urgent Medic al Question Adult Medicine - [address] [address] Jan Palomino DO Social History Tobacco Use [...] How often do you attend chur or rastafari services? Never 07/12/2023 Do you belong to any clubs o r organizations such as amish groups, unions, fraternal or athletic groups, or [...] suspected to have Coronavirus/COVID-19? No / Unsure 04/13/2022 4:31 PM EDT documented as of this encounter Miscellaneous Notes * Telephone Encounter - Anna Kemp M.A. - 04/22/2022 11:54 AM EDTFrom: Neha Wright To: Jyoti Palomino Sent: 04/22/2022 11:43 AM EDT Subject: referral I called urology and they said they never received a referral from you. I don't know what to do, it's been a longtime and my bladder still has pain. documented in this encounter Plan of Treatment Not on file documented as of this encounter Visit Diagnoses Not on filedocumented in this encounter Care Teams Mechanic'S Assistant Relationship Specialty Start Date End Date Jan Palomino DO PCP - General Internal Medicine 08/11/21 11/16/23 Letitia Khalil MD [address] [facility] [place] [address] PCP - General Internal Medicine 11/17/23 06/21/24 [facility], Pcp [address] [facility] [place] [address] PCP - General Internal Medicine 06/22/24 Lane Valdes MD Specialist Cardiovascular Disease 01/14/22 Beti Greenwood MD 444 [facility] [place] [address] UROGYNECOLOGY 07/07/23 Juani Rhodes NP 444 [facility] [place] [address] Cardiology 07/07/23 documented as of this encounter
--- OUTSIDE RECORDS SUMMARY | 2024-11-30 08:29 | XMS_ITS | Encounter Summary ---
Author Organization [facility] Address [address] [place] [address] Care Team Providers Care Senior Infrastructure Architect Name Role Phone Jan Palomino DO Primary Care Provider UnavailLane Banerjee MD Unavailable Unavailable Beti Greenwood MD Unavailable Juani Rhodes NP Unavailable [phone] Letitia Khalil MD Primary Care Provider Un available [facility], Pcp Primary Care Provider Unavailabl e Encounter Details Date Type Department Care Team Description 01/18/2022 Pt. Non Urgent Medic al Question Adult Medicine - [address] [address] Jan Palomino DO Social History Tobacco Use [...] any clubs o r organizations such as advent groups, unions, fraternal or athletic groups, or [...] Telephone Encounter - Katia Arroyo L.P.N. - 01/19/2022 8:24 AM EDT From: Neha Wright To: Jyoti Palomino Sent: 01/18/2022 4:58 PM EDT Subject: Letter received I received a letter from you stating i missed many appointments and that i could be let go .. Wouldyou please send me a list of the appointments which you say i missed. I missed one appointment thatwas made 4 months ago and no one called to remind me of the appointment.. Thank you, Neha Wright documented in this encounter Plan of Treatment Not on file documented as of this encounter Visit Diagnoses Not on filedocumented in this encounter Care Teams Senior Infrastructure Architect Relationship Specialty Start Date End Date Jan Palomino DO PCP - General Internal Medicine 08/11/21 11/16/23 Letitia Khalil MD 444 [facility] [place] [address] PCP - General Internal Medicine 11/17/23 06/21/24 [facility], Pcp 4 [facility] [place] [address] PCP - General Internal Medicine 06/22/24 Lane Valdes MD Specialist Cardiovascular Disease 01/14/22 Beti Greenwood MD 4 [facility] [place] [address] UROGYNECOLOGY 07/07/23 Juani Rhodes, ISAC 4 [facility] [place] [address] Cardiology 07/07/23 documented as of this encounter
--- OUTSIDE RECORDS SUMMARY | 2024-11-30 08:29 | XMS_ITS | Encounter Summary ---
Author Organization [facility] Address [address] [place] [address] Care Team Providers Care Diesel Mechanic Apprentice Name Role Phone Scot Owen MD Primary Care Provider Unavailable Lukas Bradford MD Primary Care Provider Jan Juárez DO Primary Care Provider UnavailLane Banerjee MD Unavailable Unavailable Beti Greenwood MD Unavailable Juani Rhodes NP Unavailable [phone] Letitia Khalil MD Primary Care Provider Un available [facility], Pcp Primary Care Provider Unavailabl e Encounter Details Date Type Department Care Team Description 06/11/2016 [facility] Medical Records [address] [place] [address] Abstract, Provider Social History Tobacco Use Types [...] often do you attend chur ch or muslim services? Never 07/12/2023 Do you belong to [...] on filedocumented in this encounter Care Teams Diesel Mechanic Apprentice Relationship Specialty Start Date End Date Scot Owen MD PCP - General Internal Medicine 01/23/1606/30/21 Lukas Bradford MD PCP - General Internal Medicine 07/01/21 08/10/21 Jan Palomino DO PCP - General Internal Medicine 08/11/21 11/16/23 Letitia Khalil MD [address] [place] [address] [place] [address] PCP - General Internal Medicine 11/17/23 06/21/24 [facility] Pcp [address] [place] [address] [place] [address] PCP - General Internal Medicine 06/22/24 Lane Valdes MD Specialist Cardiovascular Disease 01/14/22 Beti Greenwood MD [address] [place] [address] [place] [address] UROGYNECOLOGY 07/07/23 Juani Rhodes NP 444 [facility] [place] [address] Cardiology 07/07/23 documented as of this encounter
--- OUTSIDE RECORDS SUMMARY | 2024-11-30 08:29 | XMS_ITS | Encounter Summary ---
Author Organization [facility] Address [address] [place] [address] Care Team Providers Care Platform Power Technician Name Role Phone AshliAlexel Abebe Primary Care Provider Latonia Hsu Primary Care Provider UnaKristina Osorio MD Primary Care Provider Unavaila Scot Pratt MD Primary Care Provider Unavailable Lukas Bradford MD Primary Care Provider Jan Juárez DO Primary Care Provider Unavaila Lane Villalobos MD Unavailable Unavailable Beti Greenwood MD Unavailable Juani Rhodes NP Unavailable [phone] Letitia Khalil MD Primary Care Provider Un available [facility], Pcp Primary Care Provider Unavailabl e Encounter Details Date Type Department Care Team Description 04/12/2002 Orders Only Adult Medicine - [address] [address] Matthew Vickers MD Social History Tobacco Use Types Packs/Day Years Used Date Smoking Tobacco: Never Assessed Alcohol Habits Answer Date Recorded How often [...] How often do you attend chur or anabaptism services? Never 07/12/2023 Do you belong to [...] on filedocumented in this encounter Care Teams Platform Power Technician Relationship Specialty Start Date End Date Samuel Cornelius PCP - General 08/29/05 12/24/15 Latonia Haynes PCP - General 11/16/99 08/28/05 Kristina Chatman MD PCP - General Internal Medicine 12/25/15 01/22/16 Scot Owen MD PCP - General Internal Medicine 01/23/1606/30/21 Lukas Bradford MD PCP - General Internal Medicine 07/01/21 08/10/21 Jan Palomino DO PCP - General Internal Medicine 08/11/21 11/16/23 Letitia Khalil MD [address] [place] [address] [facility] [place] [address] PCP - General Internal Medicine 11/17/23 06/21/24 [facility], [address] [place] [address] PCP - General Internal Medicine 06/22/24 Lane Valdes MD Specialist Cardiovascular Disease 5/19/22 11/13/ 23 Beti Greenwood MD 444 [facility]cology [facility] [place] [address] UROGYNECOLOGY 07/07/23 Juani Rhodes NP 444 [facility] [place] [address] Cardiology 07/07/23 documented as of this encounter
--- OUTSIDE RECORDS SUMMARY | 2024-11-30 08:29 | XMS_ITS | Encounter Summary ---
[facility] Address [address] [place] [address] Care Team Providers Care Cracker Off Name Role Phone Scot Owen MD Primary Care Provider Unavailable Lukas Bradford MD Primary Care Provider Jan Juárez DO Primary Care Provider UnavailLane Banerjee MD Unavailable Unavailable Beti Greenwood MD Unavailable Juani Rhodes NP Unavailable [phone] Letitia Khalil MD Primary Care Provider Un available [facility] Pcp Primary Care Provider Unavailabl e Encounter Details Date Type Department Care Team Description 03/03/2018 [facility] Medical Records [address] [place] [address] Abstract, Provider Social History Tobacco Use Types Packs/Day Years Used Date Smoking Tobacco: Some Days Cigarettes Started: 10/27/2005; Last attempted to quit: 03/05/2012 Smokeless Tobacco: Never Comments:3 packs/week Alcohol Use Standard Drinks/Week Comments No [...] any clubs o r organizations such as rastafari groups, unions, fraternal or athletic groups, or [...] on filedocumented in this encounter Care Teams Cracker Off Relationship Specialty Start Date End Date Scot Owen MD PCP - General Internal Medicine 01/23/1606/30/21 Lukas Bradford MD PCP - General Internal Medicine 07/01/21 08/10/21 aJn Palomino DO PCP - General Internal Medicine 08/11/21 11/16/23 Letitia Khalil MD [address] [place] [address] [facility] [address] PCP - General Internal Medicine 11/17/23 06/21/24 [facility] Pcp [address] [place] [address] [facility]ologJane [facility] [place] [address] PCP - General Internal Medicine 06/22/24 Lane Valdes MD Specialist Cardiovascular Disease 01/14/22 Beti Greenwood MD 4 [facility] [place] [address] UROGYNECOLOGY 07/07/23 Juani Rhodes, SET PAINTER 444 [facility] [place] [address] Cardiology 07/07/23 documented as of this encounter
--- OUTSIDE RECORDS SUMMARY | 2024-11-30 08:29 | XMS_ITS | Clinical Summary ---
Author Organization [facility] Address [address] [place] [address] Care Team Providers Care Investor Relations Specialist Name Role Phone Jan Palomino DO Primary Care Provider [phone] Allergies Active Allergy Reactions Criticality Noted Date [...] Overview: Added automatically from request for surgery [id number] Vaginal atrophy 03/30/2023 Overview: Added automatically from request for surgery [id number] Social History Tobacco Use Types Packs/Day Years [...] this topic Medical Devices Implanted Type Area Photography Instructor Device Identifier Shelf Expiration Date Model / Serial / Lot System [employer] Tvt Exact 3mm Troc Retro Pubic Urnry [facility] [employer] [id number] - [id number] Implanted:Qty: 1 on 05/24/2023 by Beti Greenwood MD [facility] N/A: Vagina [facility] [employer] 12/27/2023 TVTRL / / [id number] Care Teams Investor Relations Specialist Relationship Specialty Start Date End Date Jan Palomino DO 230 [facility] [place] [address] PCP - General Family Medicine 05/18/23
--- OUTSIDE RECORDS SUMMARY | 2024-11-30 08:29 | XMS_ITS | Encounter Summary ---
Author Organization Christina [employer] [facility] Address [address] [place] [address] Care Team Providers Care Refrigeration Tech Name Role Phone Scot Owen MD Primary Care Provider Unavailable Lukas Bradford MD Primary Care Provider Jan Juárez DO Primary Care Provider Unavaila Lane Villalobos MD Unavailable Unavailable Beti Greenwood MD Unavailable Juani Rhodes NP Unavailable [phone] Letitia Khalil MD Primary Care Provider Un available [facility], Pcp Primary Care Provider Unavailabl e Reason for Visit * Reason Onset Date Comments Urine Drug Screen 01/14/2021 Encounter Details Date Type Department Care Team Description 01/14/2021 Telephone Adult [facility] - [address] [id number] Scot Owen MD Urine Drug Screen Social History Tobacco Use Types Packs/Day Years [...] How often do you attend chur or congregational services? Never 07/12/2023 Do you belong to [...] place to sleep or slept in a correction (including now)? No 07/12/2023 Sex Assigned at Date Recorded Not on file Job Start Date Occupation Industry Not on file Not on file Not on file COVID-19 Exposure Response Date Recorded In the last month, have you been in contact with someone who was confirmed or suspected to have Coronavirus / COVID-19? No / Unsure 01/15/2021 10:02 AM EDT documented as of this encounter Miscellaneous Notes * Telephone Encounter - Scot Owen MD - 01/16/2021 9:16 AM EDT Noted and is appropriate. * Telephone Encounter - Katia FowlerPBeckiN. - 01/16/2021 9:15 AM EDT FYI UDS COMPLETED * Telephone Encounter - Katia FowlerPBeckiN. - 01/14/2021 3:31 PM EDT Pt was notified to complete a random urine drug screen in our [facility] by 01/15. The patient was also instructed that failure to complete this urine drug screen, as requested,would jeopardize their Controlled Substance Contract with [facility]. The patient expressed understanding of the instructions and confirmed that they will arrive by that date. documented in this encounter Plan of Treatment Not on file documented as of this encounter Visit Diagnoses Not on filedocumented in this encounter Care Teams Refrigeration Tech Relationship Specialty Start Date End Date Scot Owen MD PCP - General Internal Medicine 01/23/1606/30/21 Lukas Bradford MD PCP - General Internal Medicine 07/01/21 08/10/21 Jan Palomino DO PCP - General Internal Medicine 08/11/21 11/16/23 Letitia Khalil MD [address] [place] [address] [place] [address] PCP - General Internal Medicine 11/17/23 06/21/24 Formerly [facility], [address] [place] [address] PCP - General Internal Medicine 06/22/24 Lane Valdes MD Specialist Cardiovascular Disease 01/14/22 Beti Greenwood MD 4 [facility] [place] [address] UROGYNECOLOGY 07/07/23 Juani Rhodes NP 444 [facility] [place] [address] Cardiology 07/07/23 documented as of this encounter
--- OUTSIDE RECORDS SUMMARY | 2024-11-30 08:29 | XMS_ITS | Encounter Summary ---
Author Organization [facility] Address [address] [place] [address] Care Team Providers Care Block Cuber Name Role Phone Scot Owen MD Primary Care Provider Unavailable Lukas Bradford MD Primary Care Provider Jan Juárez DO Primary Care Provider UnavailLane Banerjee MD Unavailable Unavailable Beti Greenwood MD Unavailable Juani Rhodes NP Unavailable Letitia Khalil MD Primary Care Provider Un available [facility], Pcp Primary Care Provider Unavailabl e Encounter Details Date Type Department Care Team Description 03/29/2017 P[facility] Controlled Substance Contract Medical Records [address] [place] [address] Abstract, Provider Social History Tobacco Use Types [...] How often do you attend chur or hinduism services? Never 07/12/2023 Do you belong to any clubs o r organizations such as yazidi groups, unions, fraternal or athletic groups, or [...] on filedocumented in this encounter Care Teams Block Cuber Relationship Specialty Start Date End Date Scot Owen MD PCP - General Internal Medicine 01/23/1606/30/21 Lukas Bradford MD PCP - General Internal Medicine 07/01/21 08/10/21 Jan Palomino DO PCP - General Internal Medicine 08/11/21 11/16/23 Letitia Khalil MD [address] [place] [address] [facility] [address] PCP - General Internal Medicine 11/17/23 06/21/24 [facility], Pcp [address] [place] [address] [facility] [place] [address] PCP - General Internal Medicine 06/22/24 Lane Valdes MD Specialist Cardiovascular Disease 01/14/22 Beti Greenwood MD [address] [place] [address] [facility] [place] [address] UROGYNECOLOGY 07/07/23 Juani Rhodes NP 444 [facility] [place] [address] Cardiology 07/07/23 documented as of this encounter
--- OUTSIDE RECORDS SUMMARY | 2024-11-30 08:29 | XMS_ITS | Encounter Summary ---
Author Organization [facility] Address [address] [place] [address] Care Team Providers Care Remote Broadcast Technician Name Role Phone Jan Palomino DO Primary Care Provider UnavailLane Banerjee MD Unavailable Unavailable Beti Greenwood MD Unavailable Juani Rhodes NP Unavailable [phone] Letitia Khalil MD Primary Care Provider Un available [facility], Pcp Primary Care Provider Unavailabl e Encounter Details Date Type Department Care Team Description 03/09/2022 Pt. Non Urgent Medic al Question Adult Medicine - [address] [address] Jan Palomino DO Social History Tobacco Use [...] How often do you attend chur or mormonism services? Never 07/12/2023 Do you belong to [...] on filedocumented in this encounter Care Teams Remote Broadcast Technician Relationship Specialty Start Date End Date Jan Palomino DO PCP - General Internal Medicine 08/11/21 11/16/23 Letitia Khalil MD 4 [facility] [place] [address] PCP - General Internal Medicine 11/17/23 06/21/24 [facility], Pcp [address] [place] [address] [facility] [place] [address] PCP - General Internal Medicine 06/22/24 Lane Valdes MD Specialist Cardiovascular Disease 01/14/22 Beti Greenwood MD 4 [facility] [place] [address] UROGYNECOLOGY 07/07/23 Juani Rhodes, ISAC [address] [facility] [place] [address] Cardiology 07/07/23 documented as of this encounter
--- OUTSIDE RECORDS SUMMARY | 2024-11-30 08:29 | XMS_ITS | Encounter Summary ---
[facility] Address [address] [place] [address] Care Team Providers Care Commercial Loan Coordinator Name Role Phone Scot Owen MD Primary Care Provider Unavailable Lukas Bradford MD Primary Care Provider Jan Juárez DO Primary Care Provider Unavaila Lane Villalobos MD Unavailable Unavailable Beti Greenwood MD Unavailable Juani Rhodes NP Unavailable [phone] Letitia Khalil MD Primary Care Provider Un available [facility], Pcp Primary Care Provider Unavailabl e Reason for Referral * EXTERNAL (Urgent) - Authorized/Booked Specialty Diagnoses / Procedures Referred By Yordan henderson Referred To Contact Plastic Surgery / Plastic surgery Procedures REFERRAL TO PLASTIC SURGERY Scot Owen MD [address] [place] [address] External Plastic Surg Referral ID Status Reason Start Date Expiration Date V isits Requested Visits Authorized SEE NOTE Authorized/B ooked 03/15/2016 06/16/2016 1 1 Reason for Visit * Reason Onset Date Comments REFERRAL 03/15/2016 Encounter Details Date Type Department Care Team Description 03/15/2016 Telephone Adult Medicine - [address] [place] [address] Scot Owen MD REFERRAL Social History Tobacco Use Types Packs/Day Years [...] week 07/12/2023 How often do you attend [facility] or scientology services? Never 07/12/2023 Do you [...] encounter Miscellaneous Notes * Telephone Encounter - Magalis Smiley M.A. - 03/15/2016 12:49 PM EDT Referral pended * Telephone Encounter - Robyn Davidson - 03/15/2016 9:45 AM EDT What insurance does the patient have today? BCBS Effective 05/29/09: BCBS will not retro referral requests over 90 days. If request is for this please instruct patient to call the 800# on their insurance card to appeal. Do not submit a request. Referrals cannot be processed if the insurance is not accurate. If the insurance listed above in red is NO BILLING INFORMATION FOUND FOR THIS ENCOUTNER The patients correct insurance must be obtained and registered in [facility] or their referral can not be processed. Is this a retro request? YES. If yes for what date of service do you need the retro referral? 02.04.16 Who is calling to request this referral? Sumi If the caller is not the patient, what is their name? N/A Ask the patient WHO referred them to this specialty: Patient saw Dr. Cornelius at [facility] for the problem and was told if symptoms did not resolve or worsen they would refer them to this specialty FIRST and LAST NAME of SPECIALIST PATIENT is seeing: Dr. Sidney Park NPI# [id number] What specialty is this? Plastic Surgery DIAGNOSIS Patient is being seen for (Not a body part or a procedure): Difficulty breathing on each side. 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 Have you seen this SPECIALIST for this PROBLEM/DX before?NO If YES, when:- Have you checked REVIEW or the APPT DESK to see if this referral has already been done or has visits left? YES Is this visit:Initial Visit Address of Specialist: [address] [place] [address] Phone # of Specialist:[phone] Fax #: (if applicable):[phone] Does patient have an appointment scheduled?: YES Date of appointment- (including a retro-request): 02.04.16 Is this appointment related to: Surgery documented in this encounter Plan of Treatment Not on file documented as of this encounter Visit Diagnoses Not on filedocumented in this encounter Care Teams Commercial Loan Coordinator Relationship Specialty Start Date End Date Scot Owen MD PCP - General Internal Medicine 01/23/1606/30/21 Lukas Bradford MD PCP - General Internal Medicine 07/01/21 08/10/21 Jan Palomino DO PCP - General Internal Medicine 08/11/21 11/16/23 Letitia Khalil MD [address] [facility] [place] [address] PCP - General Internal Medicine 11/17/23 06/21/24 [facility], Pcp 4 [facility] [place] [address] PCP - General Internal Medicine 06/22/24 Lane Valdes MD Specialist Cardiovascular Disease 01/14/22 Beti Greenwood MD [address] [facility] [place] [address] UROGYNECOLOGY 07/07/23 Juani Rhodes NP [address] [facility] [place] [address] Cardiology 07/07/23 documented as of this encounter
--- OUTSIDE RECORDS SUMMARY | 2024-11-30 08:29 | XMS_ITS | Encounter Summary ---
Author Organization [facility] Address [address] [place] [address] Care Team Providers Care Sales Program Manager Name Role Phone Samuel Cornelius Primary Care Provider Kristina Gilbert MD Primary Care Provider UnavailScot Hansen MD Primary Care Provider Unavailable Lukas Bradford MD Primary Care Provider Jan Juárez DO Primary Care Provider Unavaila Lane Villalobos MD Unavailable Unavailable Beti Greenwood MD Unavailable Juani Rhodes NP Unavailable [phone] Letitia Khalil MD Primary Care Provider Un available [facility], Pcp Primary Care Provider Unavailabl e Reason for Visit * Reason Onset Date Comments refill request 07/24/2012 Encounter Details Date Type Department Care Team Description 07/24/2012 Refill Adult Medicine - [address] [address] Samuel Cornelius refill request Social History Tobacco Use Types Packs/Day Years [...] week 07/12/2023 How often do you attend [facility] or tenriism services? Never 07/12/2023 Do you belong to any clubs o r organizations such as amish groups, unions, fra[employer]igm [employer] or athletic groups, or school groups? Yes [...] encounter Miscellaneous Notes * Telephone Encounter - Edi FowlerPBeckiNBecki - 07/25/2012 3:56 PM EST Tried to call pt Rang awhile No answer * Telephone Encounter - Jeri Ventura PA-C - 07/25/2012 12:20 PM EST UA and culture ordered. Patient can come to lab for specimen and if it comes back positive for UTI then I will call something in * Telephone Encounter - Edi FowlerPBeckiNBecki - 07/25/2012 12:13 PM EST Called pt and advised needs follow up and pt states does not have a ride or the copay to come in Offered tomorrow and pt states will call back ? Do you want to put in order for c&s ? * Telephone Encounter - Jeri Ventura PA-C - 07/25/2012 10:45 AM EST Patient needs to be seen for urine dip and culture * Telephone Encounter - Jessica Morales M.A. - 07/25/2012 10:30 AM EST Please traige * Telephone Encounter - Edi Kaplan L.P.N. - 07/25/2012 10:30 AM EST Pt states had seen you 07/12 for uti States finished all med But symptoms did not totally clear up Day or two after finishing med Pt states symptoms started back again Pressure,frequency,lethargic,noblood,no temp, voiding small amts, urine cloudy No lower back discomfort Asking for refill cipro * Telephone Encounter - Selene Boyle L.P.N. - 07/25/2012 10:13 AM EST Please triage * Telephone Encounter - Miley Spaulding - 07/25/2012 9:29 AM EST Pt still having uti sx's states started to go away but when last script ended came back * Telephone Encounter - Jessica Morales M.A. - 07/25/2012 8:49 AM EST Please advise pt was given abx 07/12/12 # 10 for a UTI. ? Refill or does pt need ov? * Telephone Encounter - Yi Humphrey - 07/24/2012 3:17 PM EST WHEN WAS THE PATIENT'S LAST APPOINTMENT IN ADULT MEDICINE? 07/12/2012 WHEN WAS THE LAST TIME THE PATIENT SAW THEIR PCP? Same as above Does patient have an upcoming appointment? Yes 10/06/2012 (THE MEDICATION REQUESTED IS ON THE MED LIST ABOVE) All of the medications requested were on the CURRENT MEDS list Did you check the Pharmacy information above?: YES Patient wants: Is this a mail order prescription request ? NO Indicate how soon the patient needs the script: BY THE END OF THE DAY Patient would like script to be: E-PRESCRIBED/FAXED TO PHARMACY If the patients Provider is not in tell the patient that the covering provider will get the request. Patients current insurance carrier is: Payor: [facility]/HMO FFS Plan: [id number] YANELY [place] $20 Product Type:HMO [id number] documented in this encounter Plan of Treatment Not on file documented as of this encounter Visit Diagnoses Diagnosis Dysuria- Primary documented in this encounter Care Teams Sales Program Manager Relationship Specialty Start Date End Date Samuel Cornelius PCP - General 08/29/05 12/24/15 Kristina Chatman MD PCP - General Internal Medicine 12/25/15 01/22/16 Scot Owen MD PCP - General Internal Medicine 01/23/1606/30/21 Lukas Bradford MD PCP - General Internal Medicine 07/01/21 08/10/21 Jan Palomino DO PCP - General Internal Medicine 08/11/21 11/16/23 Letitia Khalil MD [address] [place] [address] [place] [address] PCP - General Internal Medicine 11/17/23 06/21/24 [facility], [address] [place] [address] PCP - General Internal Medicine 06/22/24 Lane Valdes MD Specialist Cardiovascular Disease 01/14/22 Beti Greenwood MD 4 [facility] [place] [address] UROGYNECOLOGY 07/07/23 Juani Rhodes, IASC 4 [facility] [place] [address] Cardiology 07/07/23 documented as of this encounter
--- OUTSIDE RECORDS SUMMARY | 2024-11-30 08:29 | XMS_ITS | Encounter Summary ---
Author Organization [employer] [facility] Address [address] [place] [address] Care Team Providers Care Credit Negotiator Name Role Phone Lukas Bradford MD Primary Care Provider Jan Juárez DO Primary Care Provider UnavailLane Banerjee MD Unavailable Unavailable Beti Greenwood MD Unavailable Juani Rhodes NP Unavailable [phone] Letitia Khalil MD Primary Care Provider Un available [facility], Pcp Primary Care Provider Unavailabl e Encounter Details Date Type Department Care Team Description 07/13/2021 Pt. Non Urgent Medic al Question Adult Medicine - [address] [address] Scot Owen MD Social History Tobacco Use [...] How often do you attend chur or christianity services? Never 07/12/2023 Do you [...] on filedocumented in this encounter Care Teams Credit Negotiator Relationship Specialty Start Date End Date Lukas Bradford MD PCP - General Internal Medicine 07/01/21 08/10/21 Jan Palomino DO PCP - General Internal Medicine 08/11/21 11/16/23 Letitia Khalil MD [address] [place] [address] [place] [address] PCP - General Internal Medicine 11/17/23 06/21/24 [facility]cp [address] [place] [address] [place] [address] PCP - General Internal Medicine 06/22/24 Lane Valdes MD Specialist Cardiovascular Disease 01/14/22 Beti Greenwood MD 4 [facility] [place] [address] UROGYNECOLOGY 07/07/23 Juani Rhodes NP [address] [facility] [place] [address] Cardiology 07/07/23 documented as of this encounter
--- OUTSIDE RECORDS SUMMARY | 2024-11-30 08:29 | XMS_ITS | Encounter Summary ---
Author Organization Christina [facility] Address [address] [place] [address] Care Team Providers Care Lead Miner Blasting Name Role Phone Scot Owen MD Primary Care Provider Unavailable Lukas Bradford MD Primary Care Provider Jan Juárez DO Primary Care Provider Unavaila Lane Villalobos MD Unavailable Unavailable Beti Greenwood MD Unavailable Juani Rhodes NP Unavailable [phone] Letitia Khalil MD Primary Care Provider Un available [facility], Pcp Primary Care Provider Unavailabl e Reason for Visit * Reason Comments E-prescribe Rx Request Encounter Details Date Type Department Care Team Description 04/14/2016 Refill Physiatry - [address] [address] Niels Jackson DO E-prescribe Rx Request Social History Tobacco [...] often do you attend chur ch or judaism services? Never 07/12/2023 Do you belong to [...] encounter Miscellaneous Notes * Telephone Encounter - Kandace Guerrero - 04/14/2016 10:25 AM EDT Script went to pharmacy. * Telephone Encounter - Kandace Guerrero - 04/14/2016 8:38 AM EDT Rx refill SAMUEL 10/06/15 LR 10/29/15 F/u 05/24/16 Contracted documented in this encounter Plan of Treatment Not on file documented as of this encounter Visit Diagnoses Not on filedocumented in this encounter Care Teams Lead Miner Blasting Relationship Specialty Start Date End Date Scot Owen MD PCP - General Internal Medicine 01/23/1606/30/21 Lukas Bradford MD PCP - General Internal Medicine 07/01/21 08/10/21 Jan Palomino DO PCP - General Internal Medicine 08/11/21 11/16/23 Letitia Khalil MD 444 [facility] [place] [address] PCP - General Internal Medicine 11/17/23 06/21/24 [facility], Pcp [address] [facility] [place] [address] PCP - General Internal Medicine 06/22/24 Lane Valdes MD Specialist Cardiovascular Disease 01/14/22 Beti Greenwood MD 4 [facility] [place] [address] UROGYNECOLOGY 07/07/23 Juani Rhodes NP [address] [facility] [place] [address] Cardiology 07/07/23 documented as of this encounter
--- OUTSIDE RECORDS SUMMARY | 2024-11-30 08:29 | XMS_ITS | Encounter Summary ---
[facility] Address [address] [place] [address] Care Team Providers Care Director Of Institutional Giving Name Role Phone Lukas Bradford MD Primary Care Provider Jan Juárez DO Primary Care Provider UnavailLane Banerjee MD Unavailable Unavailable Beti Greenwood MD Unavailable Juani Rhodes NP Unavailable [phone] Letitia Khalil MD Primary Care Provider Un available [facility], Pcp Primary Care Provider Unavailabl e Encounter Details Date Type Department Care Team Description 07/20/2021 [facility] Medical Records [address] [place] [id number] [place] [address] Social History Tobacco Use Types Packs/Day Years [...] any clubs o r organizations such as congregation groups, unions, fraternal or athletic groups, or [...] have Coronavirus / COVID-19? No / Unsure 07/20/2021 1:46 PM EST documented as of this encounter Plan of Treatment Not on file documented as of this encounter Procedures Procedure Name Priority Date/Time Associated Diagnosis Comments OUTSIDE EKG Routine 07/20/2021 OUTSIDE LAB Routine 07/20/2021 documented in this encounter Results * OUTSIDE LAB (07/20/2021) Provider Abstract LAB * OUTSIDE EKG (07/20/2021) Provider Abstract CARDIOLOGY documented in this encounter Visit Diagnoses Not on filedocumented in this encounter Care Teams Director Of Institutional Giving Relationship Specialty Start Date End Date Lukas Bradford MD PCP - General Internal Medicine 07/01/21 08/10/21 Jan Palomino DO PCP - General Internal Medicine 08/11/21 11/16/23 Letitia Khalil MD 4 [facility] [place] [address] PCP - General Internal Medicine 11/17/23 06/21/24 [facility], Pcp [address] [facility] [place] [address] PCP - General Internal Medicine 06/22/24 Lane Valdes MD Specialist Cardiovascular Disease 01/14/22 Beti Greenwood MD [address] [facility] [place] [address] UROGYNECOLOGY 07/07/23 Juani Rhodes, EMAIL MARKETING MANAGER 444 [facility] [place] [address] Cardiology 07/07/23 documented as of this encounter
--- OUTSIDE RECORDS SUMMARY | 2024-11-30 08:29 | XMS_ITS | Encounter Summary ---
Author Organization [facility] Address [address] [place] [address] Care Team Providers Care Field Marketing Team Leader Name Role Phone Jan Palomino DO Primary Care Provider UnavailLane Banerjee MD Unavailable Unavailable Beti Greenwood MD Unavailable Juani Rhodes NP Unavailable [phone] Letitia Khalil MD Primary Care Provider Un available [facility], Pcp Primary Care Provider Unavailabl e Encounter Details Date Type Department Care Team Description 03/09/2022 Pt. Non Urgent Medic al Question Adult Medicine - [address] [address] Jan Palomino DO Social History Tobacco Use [...] How often do you attend chur or pentecostalism services? Never 07/12/2023 Do you belong to any clubs o r organizations such as muslim groups, unions, fraternal or athletic groups, or [...] Telephone Encounter - Anna Kemp M.A. - 03/09/2022 3:38 PM EDTFrom: Neha Wright To: Jyoti Palomino Sent: 03/09/2022 3:20 PM EDT Subject: test results What were my test results for the urine culture? documented in this encounter Plan of Treatment Not on file documented as of this encounter Visit Diagnoses Not on filedocumented in this encounter Care Teams Field Marketing Team Leader Relationship Specialty Start Date End Date Jan Palomino DO PCP - General Internal Medicine 08/11/21 11/16/23 Letitia Khalil MD [address] [facility] [place] [address] PCP - General Internal Medicine 11/17/23 06/21/24 [facility], Pcp [address] [facility] [place] [address] PCP - General Internal Medicine 06/22/24 Lane Valdes MD Specialist Cardiovascular Disease 01/14/22 Beti Greenwood MD [address] [facility] [place] [address] UROGYNECOLOGY 07/07/23 Juani Rhodes NP [address] [facility] [place] [address] Cardiology 07/07/23 documented as of this encounter
--- OUTSIDE RECORDS SUMMARY | 2024-11-30 08:29 | XMS_ITS | Encounter Summary ---
Author Organization [facility] Address [address] [place] [address] Care Team Providers Care Animal Researcher Name Role Phone Lukas Bradford MD Primary Care Provider Jan Juárez DO Primary Care Provider Unavaila Lane Villalobos MD Unavailable Unavailable Beti Greenwood MD Unavailable Juani Rhodes NP Unavailable [phone] Letitia Khalil MD Primary Care Provider Un available [facility], Pcp Primary Care Provider Unavailabl e Reason for Referral * EXTERNAL (Routine) - Authorized/Booked Specialty Diagnoses / Procedures Referred By Yordan henderson Referred To Contact PAIN MANAGEMENT / Pain Management Procedures REFERRAL TO PAIN MANAGEMENT Scot Owen MD [address] [place] [address] External Pain Man Referral ID Status Reason Start Date Expiration Date V isits Requested Visits Authorized [id number] Authorized/B ooked 07/14/2021 10/21/2021 1 1 Encounter Details Date Type Department Care Team Description 07/14/2021 Pt. Non Urgent Medic al Question Adult Medicine - [place] [address] [place] [address] Evette Wade NP Social History Tobacco Use Types Packs/Day [...] week 07/12/2023 How often do you attend [facility] or mandaeism services? Never 07/12/2023 Do you [...] filedocumented in this encounter Care Teams Animal Researcher Relationship Specialty Start Date End Date Lukas Bradford MD PCP - General Internal Medicine 07/01/21 08/10/21 Jan Palomino DO PCP - General Internal Medicine 08/11/21 11/16/23 Letitia Khalil MD [address] [place] [address] [place] [address] PCP - General Internal Medicine 11/17/23 06/21/24 [facility], Pcp [address] [place] [address] [place] [address] PCP - General Internal Medicine 06/22/24 Lane Valdes MD Specialist Cardiovascular Disease 01/14/22 Beti Greenwood MD [address] [place] [address] UROGYNECOLOGY 07/07/23 Juani Rhodes NP 444 [facility] [place] [address] Cardiology 07/07/23 documented as of this encounter
--- OUTSIDE RECORDS SUMMARY | 2024-11-30 08:29 | XMS_ITS | Encounter Summary ---
[facility] Organization [facility] Address [address] [place] [address] Care Team Providers Care Drafter Electrical Name Role Phone Scot Owen MD Primary Care Provider Unavailable Lukas Bradford MD Primary Care Provider Jan Juárez DO Primary Care Provider UnavailLane Banerjee MD Unavailable Unavailable Beti Greenwood MD Unavailable Juani Rhodes NP Unavailable [phone] Letitia Khalil MD Primary Care Provider Un available [facility], Pcp Primary Care Provider Unavailabl e Encounter Details Date Type Department Care Team Description 12/03/2020 [facility] Medical Records [address] [place] [address] Abstract, Provider Social History Tobacco Use Types [...] How often do you attend chur or faith services? Never 07/12/2023 Do you belong to [...] have Coronavirus / COVID-19? No / Unsure 12/04/2020 9:06 AM EDT documented as of this encounter Plan of Treatment Not on file documented as of this encounter Visit Diagnoses Not on filedocumented in this encounter Care Teams Drafter Electrical Relationship Specialty Start Date End Date Scot Owen MD PCP - General Internal Medicine 01/23/1606/30/21 Lukas Bradford MD PCP - General Internal Medicine 07/01/21 08/10/21 Jan Palomino DO PCP - General Internal Medicine 08/11/21 11/16/23 Letitia Khalil MD [address] [place] [address] [facility] [place] [address] PCP - General Internal Medicine 11/17/23 06/21/24 [facility], Pcp [address] [place] [address] [place] [address] PCP - General Internal Medicine 06/22/24 Lane Valdes MD Specialist Cardiovascular Disease 01/14/22 Beti Greenwood MD 444 [facility] [place] [address] UROGYNECOLOGY 07/07/23 Juani Rhodes NP [address] [facility] [place] [address] Cardiology 07/07/23 documented as of this encounter
--- OUTSIDE RECORDS SUMMARY | 2024-11-30 08:29 | XMS_ITS | Encounter Summary ---
Author Organization [facility] Address [address] [place] [address] Care Team Providers Care Client Relations Specialist Name Role Phone Scot Owen MD Primary Care Provider Unavailable Lukas Bradford MD Primary Care Provider Jan Juárez DO Primary Care Provider UnavailLane Banerjee MD Unavailable Unavailable Beti Greenwood MD Unavailable Juani Rhodes NP Unavailable [phone] Letitia Khalil MD Primary Care Provider Un available [facility], Pcp Primary Care Provider Unavailabl e Encounter Details Date Type Department Care Team Description 02/01/2018 [facility] Medical Records [address] [place] [address] Abstract, Provider Social History Tobacco Use Types [...] any clubs o r organizations such as faith groups, unions, fraternal or athletic groups, or [...] place to sleep or slept in a fci (including now)? No 07/12/2023 Sex Assigned at Date Recorded Not on file Job Start Date Occupation Industry Not on file Not on file Not on file documented as of this encounter Plan of Treatment Not on file documented as of this encounter Visit Diagnoses Not on filedocumented in this encounter Care Teams Client Relations Specialist Relationship Specialty Start Date End Date Scot Owen MD PCP - General Internal Medicine 01/23/1606/30/21 Lukas Bradford MD PCP - General Internal Medicine 07/01/21 08/10/21 Jan Palomino DO PCP - General Internal Medicine 08/11/21 11/16/23 Letitia Khalil MD [address] [place] [address] [place] [address] PCP - General Internal Medicine 11/17/23 06/21/24 [facility], Pcp [address] [place] [address] UrogynecologCardinal Hill [place] [address] PCP - General Internal Medicine 06/22/24 Lane Valdes MD Specialist Cardiovascular Disease 01/14/22 Beti Greenwood MD 4 [facility] [place] [address] UROGYNECOLOGY 07/07/23 Juani Rhodes, PLANT TOUR GUIDE 444 [facility] [place] [address] Cardiology 07/07/23 documented as of this encounter
--- OUTSIDE RECORDS SUMMARY | 2024-11-30 08:29 | XMS_ITS | Encounter Summary ---
Author Organization [facility] Address [address] [place] [address] Care Team Providers Care Construction Producer Name Role Phone Jan Palomino DO Primary Care Provider UnavailLane Banerjee MD Unavailable Unavailable Beti Greenwood MD Unavailable Juani Rhodes NP Unavailable [phone] Letitia Khalil MD Primary Care Provider Un available [facility], Pcp Primary Care Provider Unavailabl e Encounter Details Date Type Department Care Team Description 03/16/2022 Pt. Non Urgent Medic al Question Adult Medicine - [place] [address] [place] [address] Yelena Garcia MD [address] [place] [address] Social History Tobacco Use Types Packs/Day Years [...] often do you attend chur ch or faith services? Never 07/12/2023 Do you [...] suspected to have Coronavirus/COVID-19? No / Unsure 03/17/2022 9:46 AM EDT documented as of this encounter Plan of Treatment Not on file documented as of this encounter Visit Diagnoses Not on filedocumented in this encounter Care Teams Construction Producer Relationship Specialty Start Date End Date Jan Palomino DO PCP - General Internal Medicine 08/11/21 11/16/23 Letitia Khalil MD 4 [facility] [place] [address] PCP - General Internal Medicine 11/17/23 06/21/24 [facility], Pcp [address] [place], [place] [address] [place] [address] PCP - General Internal Medicine 06/22/24 Lane Valdes MD Specialist Cardiovascular Disease 01/14/22 Beti Greenwood MD 4 [facility] [place] [address] UROGYNECOLOGY 07/07/23 Juani Rhodes, ISAC 444 [facility] [place] [address] Cardiology 07/07/23 documented as of this encounter
--- OUTSIDE RECORDS SUMMARY | 2024-11-30 08:29 | XMS_ITS | Encounter Summary ---
Author Organization [facility] Address [address] [place] [address] Care Team Providers Care Turkey Cleaner Name Role Phone Scot Owen MD Primary Care Provider Unavailable Lukas Bradford MD Primary Care Provider Jan Juárez DO Primary Care Provider UnavailLane Banerjee MD Unavailable Unavailable Beti Greenwood MD Unavailable Juani Rhodes NP Unavailable [phone] Letitia Khalil MD Primary Care Provider Un available [facility], Pcp Primary Care Provider Unavailabl e Encounter Details Date Type Department Care Team Description 10/11/2020 Pt. Non Urgent Medic al Question Adult Medicine - [address] [address] cSot Owen MD Social History Tobacco Use Types [...] How often do you attend chur or restorationist services? Never 07/12/2023 Do you belong to any clubs o r organizations such as jew groups, unions, fraternal or athletic groups, or [...] Telephone Encounter - Katia Arroyo L.P.N. - 10/13/2020 8:45 AM EST From: Neha Wright To: Scot Owen MD Sent: 10/11/2020 4:00 PM EST Subject: medical record I never received my letter of comorbidity . Now someone out there has my personal information. I knew when they called me and asked my for my address and they were laughing it was going to the wrong address. I received the last one no problem . Why this time did they have to call and asked for my address? There is no privacy there , I want to know who called me. documented in this encounter Plan of Treatment Not on file documented as of this encounter Visit Diagnoses Not on filedocumented in this encounter Care Teams Turkey Cleaner Relationship Specialty Start Date End Date Scot Owen MD PCP - General Internal Medicine 01/23/1606/30/21 Lukas Bradford MD PCP - General Internal Medicine 07/01/21 08/10/21 Jan Palomino DO PCP - General Internal Medicine 08/11/21 11/16/23 Letitia Khalil MD [address] [place] [address] [place] [address] PCP - General Internal Medicine 11/17/23 06/21/24 [facility], [place] [address] [place] [address] [facility] [place] [address] PCP - General Internal Medicine 06/22/24 Lane Valdes MD Specialist Cardiovascular Disease 01/14/22 Beti Greenwood MD 4 [facility] [place] [address] UROGYNECOLOGY 07/07/23 Juani Rhodes NP 4 [facility] [place] [address] Cardiology 07/07/23 documented as of this encounter
--- OUTSIDE RECORDS SUMMARY | 2024-11-30 08:29 | XMS_ITS | Encounter Summary ---
Author Organization [facility] Address [address] [place] [address] Care Team Providers Care Hazard Mitigation Officer Name Role Phone Scot Owen MD Primary Care Provider Unavailable Lukas Bradford MD Primary Care Provider Jan Juárez DO Primary Care Provider UnavailLane Banerjee MD Unavailable Unavailable Beti Greenwood MD Unavailable Juani Rhodes NP Unavailable [phone] Letitia Khalil MD Primary Care Provider Un available [facility], Pcp Primary Care Provider Unavailabl e Encounter Details Date Type Department Care Team Description 04/09/2021 [facility] Medical Records [address] [place] [address] Abstract, Provider Social History Tobacco Use Types [...] often do you attend chur ch or religion services? Never 07/12/2023 Do you belong to [...] have Coronavirus / COVID-19? No / Unsure 04/07/2021 8:41 AM EDT documented as of this encounter Plan of Treatment Not on file documented as of this encounter Visit Diagnoses Not on filedocumented in this encounter Care Teams Hazard Mitigation Officer Relationship Specialty Start Date End Date Scot Owen MD PCP - General Internal Medicine 01/23/1606/30/21 Lukas Bradford MD PCP - General Internal Medicine 07/01/21 08/10/21 Jan Palomino DO PCP - General Internal Medicine 08/11/21 11/16/23 Letitia Khalil MD 444 [place] [address] PCP - General Internal Medicine 11/17/23 06/21/24 Ron[facility], Shelia [address] [place] [address] [facility] [place] [address] PCP - General Internal Medicine 06/22/24 Lane Valdes MD Specialist Cardiovascular Disease 01/14/22 Beti Greenwood MD 444 [facility] [place] [address] UROGYNECOLOGY 07/07/23 Juani Rhodes NP 444 [facility] [place] [address] Cardiology 07/07/23 documented as of this encounter
--- OUTSIDE RECORDS SUMMARY | 2024-11-30 08:30 | XMS_ITS | Encounter Summary ---
Author Organization [facility] Address [address] [place] [address] Care Team Providers Care Art Therapist Name Role Phone Jan Palomino DO Primary Care Provider UnavailLane Banerjee MD Unavailable Unavailable Beti Greenwood MD Unavailable Juani Rhodes NP Unavailable [phone] Letitia Khalli MD Primary Care Provider Un available [facility], Pcp Primary Care Provider Unavailabl e Encounter Details Date Type Department Care Team Description 01/07/2022 Pt. Non Urgent Medic al Question Adult Medicine - [address] [address] Jan Palomino DO Social History Tobacco Use [...] How often do you attend chur or samaritan services? Never 07/12/2023 Do you [...] on filedocumented in this encounter Care Teams Art Therapist Relationship Specialty Start Date End Date Jan Palomino, PCP - General Internal Medicine 08/11/21 11/16/23 Letitia Khalil MD [address] [place] [address] [place] [address] PCP - General Internal Medicine 11/17/23 06/21/24 [facility], [address] [place] [address] PCP - General Internal Medicine 06/22/24 Lane Valdes MD Specialist Cardiovascular Disease 01/14/22 Beti Greenwood MD [address] [place] [address] [place] [address] UROGYNECOLOGY 07/07/23 Juani Rhodes NP 444 [facility] [place] [address] Cardiology 07/07/23 documented as of this encounter
--- OUTSIDE RECORDS SUMMARY | 2024-11-30 08:30 | XMS_ITS | Encounter Summary ---
Author Organization [facility] Address [address] [place] [address] Care Team Providers Care Padded Products Inspector Trimmer Name Role Phone Samuel Cornelius Primary Care Provider UnaKristina Herrera MD Primary Care Provider UnavailScot Hansen MD Primary Care Provider Unavailable Lukas Bradford MD Primary Care Provider Jan Juárez DO Primary Care Provider Unavaila Lane Villalobos MD Unavailable Unavailable Beti Greenwood MD Unavailable Juani Rhodes NP Unavailable [phone] Letitia Khalil MD Primary Care Provider Un available [facility], Pcp Primary Care Provider Unavailabl e Encounter Details Date Type Department Care Team Description 10/26/2013 Pt. Non Urgent Medical Question Adult Medicine - [address] [address] Samuel Cornelius Social History Tobacco Use Types [...] r organizations such as buddhist groups, unions, [employer]Paradigm [employer] or athletic groups, or school groups? Yes [...] Progress Notes * Selene Boyle L.P.N. - 10/28/2013 8:41 AM ESTFrom: BARRON ALFARO To: Samuel Cornelius MD Sent: TueOct 26, 2013 8:53 PM Subject: Leg pain My pain is in my leg not my hip. The mri i had done was of my leg just above my knee. You took a xray of my hip. It's not my hip that hurts. I'm not happy with the test i'm having you are missing thearea's that i'm hurting in. It's not my hip that hurts. It's my upper leg. The pain is radiating upmy leg. I'm getting so tired of not being listen to. Barorn Wright documented in this encounter Plan of Treatment Not on file documented as of this encounter Visit Diagnoses Not on filedocumented in this encounter Care Teams Padded Products Inspector Trimmer Relationship Specialty Start Date End Date Samuel Cornelius PCP - General 08/29/05 12/24/15 Kristina Chatman MD PCP - General Internal Medicine 12/25/15 01/22/16 Scot Owen MD PCP - General Internal Medicine 01/23/1606/30/21 Lukas Bradford MD PCP - General Internal Medicine 07/01/21 08/10/21 Jan Palomino DO PCP - General Internal Medicine 08/11/21 11/16/23 Letitia Khalil MD [address] [place] [address] [place] [address] PCP - General Internal Medicine 11/17/23 06/21/24 [facility], Pcp [address] [place] [address] [place] [address] PCP - General Internal Medicine 06/22/24 Lane Valdes MD Specialist Cardiovascular Disease 01/14/22 Beti Greenwood MD [address] [place] [address] [place] [address] UROGYNECOLOGY 07/07/23 Juani Rhodes NP 4 [facility] [place] [address] Cardiology 07/07/23 documented as of this encounter
--- OUTSIDE RECORDS SUMMARY | 2024-11-30 08:30 | XMS_ITS | Encounter Summary ---
Author Organization [facility] Address [address] [place] [address] Care Team Providers Care Acting Teacher Name Role Phone Scot Owen MD Primary Care Provider Unavailable Lukas Bradford MD Primary Care Provider Jan Juárez DO Primary Care Provider UnavailLane Banerjee MD Unavailable Unavailable Beti Greenwood MD Unavailable Juani Rhodes NP Unavailable [phone] Letitia Khalil MD Primary Care Provider Un available [facility], Pcp Primary Care Provider Unavailabl e Encounter Details Date Type Department Care Team Description 06/30/2016 [facility] Medical Records [address] [place] [address] Abstract, Provider Social History Tobacco Use Types [...] often do you attend chur ch or mormonism services? Never 07/12/2023 Do you [...] on filedocumented in this encounter Care Teams Acting Teacher Relationship Specialty Start Date End Date Scot Owen MD PCP - General Internal Medicine 01/23/1606/30/21 Lukas Bradford MD PCP - General Internal Medicine 07/01/21 08/10/21 Jan Palomino DO PCP - General Internal Medicine 08/11/21 11/16/23 Letitia Khalil MD [address] [place] [address] [place] [address] PCP - General Internal Medicine 11/17/23 06/21/24 Count Includes [facility] Pcp [address] [place] [address] [place] [address] PCP - General Internal Medicine 06/22/24 Lane Valdes MD Specialist Cardiovascular Disease 01/14/22 Beti Greenwood MD [address] [place] [address] [place] [address] UROGYNECOLOGY 07/07/23 Juani Rhodes NP 444 [facility] [place] [address] Cardiology 07/07/23 documented as of this encounter
--- OUTSIDE RECORDS SUMMARY | 2024-11-30 08:30 | XMS_ITS | Encounter Summary ---
Author Organization [facility] Address [address] [place] [address] Care Team Providers Care Asphalt Dauber Name Role Phone Beti Greenwood MD Unavailable Juani Rhodes NP Unavailable [phone] Letitia Khalil MD Primary Care Provider Un available [facility], Pcp Primary Care Provider Unavailabl e Encounter Details Date Type Department Care Team Description 04/27/2024 Asphalt Engineer Report Medical Records [address] [place] [address] Dilcia Meadows NP Social History Tobacco Use [...] How often do you attend [facility] or yazidi services? Never 07/12/2023 Do you belong to any clubs o r organizations such as hoahaoism groups, unions, fraternal or athletic groups, or [...] on filedocumented in this encounter Care Teams Asphalt Dauber Relationship Specialty Start Date End Date Letitia Khalil MD 444 [facility] [place] [facility] [place] [address] PCP - General Internal Medicine 11/17/23 06/21/24 [facility], Pcp 444 [place] [address] PCP - General Internal Medicine 06/22/24 Beti Greenwood MD 444 [place] [address] UROGYNECOLOGY 07/07/23 Juani Rhodes NP 444 [facility] [place] [address] Cardiology 07/07/23 documented as of this encounter
--- OUTSIDE RECORDS SUMMARY | 2024-11-30 08:30 | XMS_ITS | Encounter Summary ---
[facility] Address [address] [place] [address] Care Team Providers Care Automotive Service Advisor Name Role Phone Scot Owen MD Primary Care Provider Unavailable Lukas Bradford MD Primary Care Provider Jan Juárez DO Primary Care Provider UnavailLane Banerjee MD Unavailable Unavailable Beti Greenwood MD Unavailable Juani Rhodes NP Unavailable [phone] Letitia Khalil MD Primary Care Provider Un available [facility], Pcp Primary Care Provider Unavailabl e Encounter Details Date Type Department Care Team Description 06/21/2018 [facility] Medical Records [address] [place] [address] Abstract, Provider Social History Tobacco Use Types Packs/Day Years Used Date Smoking Tobacco: Some Days Cigarettes Started: 10/27/2005; Last attempted to quit: 03/05/2012 Smokeless Tobacco: Never Comments:2-3 packs/week Alcohol Use Standard Drinks/Week Comments No [...] How often do you attend chur or islam services? Never 07/12/2023 Do you belong to any clubs o r organizations such as episcopal groups, unions, fraternal or athletic groups, or [...] on filedocumented in this encounter Care Teams Automotive Service Advisor Relationship Specialty Start Date End Date Scot Owen MD PCP - General Internal Medicine 01/23/1606/30/21 Lukas Bradford MD PCP - General Internal Medicine 07/01/21 08/10/21 Jan Palomino DO PCP - General Internal Medicine 08/11/21 11/16/23 Letitia Khalil MD [address] [place] [address] [facility] [place] [address] PCP - General Internal Medicine 11/17/23 06/21/24 [facility], [address] Urogynecolog[place] [address] PCP - General Internal Medicine 06/22/24 Lane Valdes MD Specialist Cardiovascular Disease 01/14/22 Beti Greenwood MD [address] [place], [place] [address]Davis [facility] [place] [address] UROGYNECOLOGY 07/07/23 Juain Rhodes, DIP GUIDER STOVES 444 [facility] [place] [address] Cardiology 07/07/23 documented as of this encounter
--- OUTSIDE RECORDS SUMMARY | 2024-11-30 08:30 | XMS_ITS | Encounter Summary ---
Author Organization [facility] Address [address] [place] [address] Care Team Providers Care Electric Screw Driver Operator Name Role Phone Samuel Cornelius Primary Care Provider Kristina Gilbert MD Primary Care Provider UnavailScot Hansen MD Primary Care Provider Unavailable Lukas [place] MD Primary Care Provider Jan Juárez DO Primary Care Provider Unavaila Lane Villalobos MD Unavailable Unavailable Beti [place] MD Unavailable Juani Rhodes NP Unavailable [phone] Letitia Khalil MD Primary Care Provider Un available [facility], Pcp Primary Care Provider Unavailabl e Encounter Details Date Type Department Care Team Description 10/12/2013 Pt. Non Urgent Medical Question Adult Medicine - [address] [address] Samuel Cornelius Social History Tobacco Use Types [...] How often do you attend chur or denominational services? Never 07/12/2023 Do you belong to any clubs o r organizations such as methodist groups, unions, fraternal or athletic groups, or [...] Progress Notes * Selene Boyle L.P.N. - 10/12/2013 10:44 AM ESTFrom: BARRON ALFARO To: Samuel Cornelius MD Sent: TueOct 12, 2013 7:19 AM Subject: Medication Dr Cornelius, I would like to return to taking my 4 pills a day. I had a routine going and it was working. I haven't slept well the last 2 nights, as my back has been bothering me. I would take thatpill before i went to bed and it helped me sleep. I was doing so well with taking the 4 pills a day. Thank you Barron Wright documented in this encounter Plan of Treatment Not on file documented as of this encounter Visit Diagnoses Diagnosis Lumbago documented in this encounter Care Teams Electric Screw Driver Operator Relationship Specialty Start Date End Date Samuel Cornelius PCP - General 08/29/05 12/24/15 Kristina Chatman MD PCP - General Internal Medicine 12/25/15 01/22/16 Scot Owen MD PCP - General Internal Medicine 01/23/1606/30/21 Lukas Bradford MD PCP - General Internal Medicine 07/01/21 08/10/21 Jan Palomino DO PCP - General Internal Medicine 08/11/21 11/16/23 Letitia Khalil MD [address] [place] [address] [place] [address] PCP - General Internal Medicine 11/17/23 06/21/24 [facility], Pcp [address] [place] [address] [place] [address] PCP - General Internal Medicine 06/22/24 Lane Valdes MD Specialist Cardiovascular Disease 01/14/22 Beti [place] MD [address] [place] [address] [place] [address] UROGYNECOLOGY 07/07/23 Juani Rhodes NP [address] [place] [address] [place] [address] Cardiology 07/07/23 documented as of this encounter
--- OUTSIDE RECORDS SUMMARY | 2024-11-30 08:30 | XMS_ITS | Encounter Summary ---
Author Organization [facility] Address [address] [place] [address] Care Team Providers Care Comptroller Name Role Phone Scot Owen MD Primary Care Provider Unavailable Luaks [place] MD Primary Care Provider Jan Juárez DO Primary Care Provider UnavailLane Banerjee MD Unavailable Unavailable Beti [place] MD Unavailable Juani Rhodes NP Unavailable [phone] Letitia Khalil MD Primary Care Provider Un available [facility], Pcp Primary Care Provider Unavailabl e Encounter Details Date Type Department Care Team Description 05/27/2016 Pt. Referral Request [address] [address] Md Nataliya Social History Tobacco Use Types Packs/Day Years [...] often do you attend chur ch or voodoo services? Never 07/12/2023 Do you [...] on filedocumented in this encounter Care Teams Comptroller Relationship Specialty Start Date End Date Scot Owen MD PCP - General Internal Medicine 01/23/1606/30/21 Lukas Bradford MD PCP - General Internal Medicine 07/01/21 08/10/21 Jan Palomino DO PCP - General Internal Medicine 08/11/21 11/16/23 Letitia Khalil MD [address] [place] [address] [place] [address] PCP - General Internal Medicine 11/17/23 06/21/24 [facility], Pcp [address] [place] [address] [facility] [place] [address] PCP - General Internal Medicine 06/22/24 Lane Valdes MD Specialist Cardiovascular Disease 01/14/22 Beti [place] MD 4 [facility] [facility] [place] [address] UROGYNECOLOGY 07/07/23 Juani Rhodes, OILER BANDER [address] [facility] [place] [address] Cardiology 07/07/23 documented as of this encounter
--- OUTSIDE RECORDS SUMMARY | 2024-11-30 08:30 | XMS_ITS | Encounter Summary ---
Author Organization [facility] Address [address] [place] [address] Care Team Providers Care Kiln Loader Name Role Phone Samuel Cornelius Primary Care [...] Details Date Type Department Care Team Description 02/28/2013 Controlled Substance Plan Medical Records [address] [place] [address] Abstract, Provider Social History Tobacco Use Types [...] often do you attend chur ch or caodaism services? Never 07/12/2023 Do you belong to any clubs o r organizations such as protestant groups, unions, fraternal or athletic groups, or [...] on filedocumented in this encounter Care Teams Kiln Loader Relationship Specialty Start Date End Date Samuel Cornelius PCP - General 08/29/05 12/24/15 Kristina Chatman MD PCP - General Internal Medicine 12/25/15 01/22/16 Scot Owen MD PCP - General Internal Medicine 01/23/1606/30/21 Lukas Bradford MD PCP - General Internal Medicine 07/01/21 08/10/21 Jan Palomino DO PCP - General Internal Medicine 08/11/21 11/16/23 Letitia Khalil MD [address] [place] [address] [place] [address] PCP - General Internal Medicine 11/17/23 06/21/24 [facility], Pcp [address] [place] [address] [place] [address] PCP - General Internal Medicine 06/22/24 Lane Valdes MD Specialist Cardiovascular Disease 01/14/22 Beti [place] MD [address] [facility] [place] [address] UROGYNECOLOGY 07/07/23 Juani Rhodes NP [address] [facility] [place] [address] Cardiology 07/07/23 documented as of this encounter
--- OUTSIDE RECORDS SUMMARY | 2024-11-30 08:30 | XMS_ITS | Encounter Summary ---
Author Organization [facility] Address [address] [place] [address] Care Team Providers Care Non Garment Sewing Machine Operator Name Role Phone Jan Palomino DO Primary Care Provider UnavailLane Banerjee MD Unavailable Unavailable Beti [place] MD Unavailable Juani Rhodes NP Unavailable [phone] Letitia Khalil MD Primary Care Provider Un available [facility], Pcp Primary Care Provider Unavailabl e Encounter Details Date Type Department Care Team Description 09/14/2021 Telephone Adult [facility] - [address] [address] Jan Palomino, Social History Tobacco Use Types Packs/Day Years [...] have Coronavirus / COVID-19? No / Unsure 09/09/2021 1:22 PM EST documented as of this encounter Miscellaneous Notes * Telephone Encounter - Kimberley John M.A. - 09/15/2021 1:13 PM EST Called pt and left message with to call back * Telephone Encounter - Kimberley John M.A. - 09/14/2021 3:53 PM EST ----- Message from Jan Palomino DO sent at 09/11/2021 12:25 PM EST ----- According to ASCVD risk calculator patient is recommended for moderate to high intensity statin, risk of CVS in next 10 years is 6.3 to 9.9%. Patient was sent to pharmacy.Please call if there is any muscle pain after taking the medicine documented in this encounter Plan of Treatment Not on file documented as of this encounter Visit Diagnoses Not on filedocumented in this encounter Care Teams Non Garment Sewing Machine Operator Relationship Specialty Start Date End Date Jan Palomino DO PCP - General Internal Medicine 08/11/21 11/16/23 Letitia Khalil MD [address] [facility] [place] [address] PCP - General Internal Medicine 11/17/23 06/21/24 [facility], [address] [facility] [address] PCP - General Internal Medicine 06/22/24 Lane Valdes MD Specialist Cardiovascular Disease 01/14/22 Beti [place] MD [address] [facility] [place] [address] UROGYNECOLOGY 07/07/23 Juani Rhodes, ISAC [address] [facility] [place] [address] Cardiology 07/07/23 documented as of this encounter
--- OUTSIDE RECORDS SUMMARY | 2024-11-30 08:30 | XMS_ITS | Encounter Summary ---
Author Organization [facility] Address [address] [place] [address] Care Team Providers Care Arborist Climber Name Role Phone Scot Owen MD Primary Care Provider Unavailable Lukas Bradford MD Primary Care Provider Jan Juárez DO Primary Care Provider UnavailLane Banerjee MD Unavailable Unavailable Beti [place] MD Unavailable Juani Rhodes NP Unavailable [phone] Letitia Khalil MD Primary Care Provider Un available [facility], Pcp Primary Care Provider Unavailabl e Encounter Details Date Type Department Care Team Description 04/26/2018 [facility] Medical Records [address] [place] [address] Abstract, Provider Social History Tobacco Use Types [...] any clubs o r organizations such as lutheran groups, unions, fraternal or athletic groups, or [...] on filedocumented in this encounter Care Teams Arborist Climber Relationship Specialty Start Date End Date Scot Owen MD PCP - General Internal Medicine 01/23/1606/30/21 Lukas Bradford MD PCP - General Internal Medicine 07/01/21 08/10/21 Jan Palomino DO PCP - General Internal Medicine 08/11/21 11/16/23 Letitia Khalil MD [address] [place] [address] [place] [address] PCP - General Internal Medicine 11/17/23 06/21/24 [facility], Pcp [address] [place] [address] [facility] [place] [address] PCP - General Internal Medicine 06/22/24 Lane Valdes MD Specialist Cardiovascular Disease 01/14/22 Beti [place] MD 4 [facility] [place] [address] UROGYNECOLOGY 07/07/23 Juani Rhodes, BAG MACHINE OPERATOR HELPER [address] [facility] [place] [address] Cardiology 07/07/23 documented as of this encounter
--- OUTSIDE RECORDS SUMMARY | 2024-11-30 08:30 | XMS_ITS | Encounter Summary ---
Author Organization [facility] Address [address] [place] [address] Care Team Providers Care Glaze Handler Name Role Phone Jan Palomino DO Primary Care Provider UnavailLane Banerjee MD Unavailable Unavailable Beti [place] MD Unavailable Juani Rhodes NP Unavailable [phone] Letitia Khalil MD Primary Care Provider Un available [facility], Pcp Primary Care Provider Unavailabl e Encounter Details Date Type Department Care Team Description 01/07/2022 Pt. Non Urgent Medic al Question Adult Medicine - [address] [address] Jan Palomino DO Social History Tobacco Use [...] any clubs o r organizations such as judaism groups, unions, fraternal or athletic groups, or [...] encounter Miscellaneous Notes * Telephone Encounter - Kaitlin Truong M.A. - 01/07/2022 1:40 PM EDTFrom: Neha Wright To: Jyoti Palomino Sent: 01/07/2022 1:29 PM EDT Subject: appointment I need to schedule an appointment could someone please call me to do this? I have tried to call andwaited for over a half an hour. Thank you Neha Wright documented in this encounter Plan of Treatment Not on file documented as of this encounter Visit Diagnoses Not on filedocumented in this encounter Care Teams Glaze Handler Relationship Specialty Start Date End Date Jan Palomino DO PCP - General Internal Medicine 08/11/21 11/16/23 Letitia Khalil MD [address] [place] [address] [place] [address] PCP - General Internal Medicine 11/17/23 06/21/24 [facility], Pcp [address] [place] [address] [place] [address] PCP - General Internal Medicine 06/22/24 Lane Valdes MD Specialist Cardiovascular Disease 01/14/22 Beti [place] MD [address] [facility] [place] [address] UROGYNECOLOGY 07/07/23 Juani Rhodes NP [address] [facility] [place] [address] Cardiology 07/07/23 documented as of this encounter
== END 2024-11-30 08:45 | disposition home or self-care (01) ==
LOC: HO.PMC 08:16
PROVIDERS: Visit Provider Nurse Practitioner Family
DX: Z79.891 Long term (current) use of opiate analgesic (principal); M47.816 Spondylosis without myelopathy or radiculopathy, lumbar region; G89.4 Chronic pain syndrome; M50.30 Other cervical disc degeneration, unspecified cervical region
CPT/HCPCS: 99214; G2211

== ENCOUNTER → 2024-11-30 08:15 | Outpatient (BNVA) | payer MEDICARE, SELFPAY | PROVIDERS: Visit Provider Nurse Practitioner Family | DX: Z51.81 Encounter for therapeutic drug level monitoring (principal); M47.816 Spondylosis without myelopathy or radiculopathy, lumbar region; M50.30 Other cervical disc degeneration, unspecified cervical region; G89.4 Chronic pain syndrome; Z79.891 Long term (current) use of opiate analgesic | CPT/HCPCS: 99212 ==

== ENCOUNTER 2024-12-31 09:44 | Outpatient (AMB) | payer MEDICARE, SELFPAY ==
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
[2024-12-31 10:00] VITALS: BP 122/86; PULSE 100; O2SAT 100; BMI 25.5
--- OUTSIDE RECORDS SUMMARY | 2024-12-31 10:41 | XMS_ITS | Encounter Summary ---
Author Organization [facility] Address [address] [place] [address] Care Team Providers Care Sludge Filtration Attendant Name Role Phone Jan Palomino DO Primary Care Provider UnavailLane Banerjee MD Unavailable Unavailable Beti [place] MD Unavailable Juani Rhodes NP Unavailable [phone] Letitia Khalil MD Primary Care Provider Un available [facility], Pcp Primary Care Provider Unavailabl e Encounter Details Date Type Department Care Team Description 05/31/2022 Orders Only Medical Records [address] [place] [address] Mauricio Stewart MD [address] [place] [address] [address] [place] [address] Social History Tobacco Use Types Packs/Day Years [...] any clubs o r organizations such as jehovah's witness groups, unions, fraternal or athletic groups, or [...] suspected to have Coronavirus/COVID-19? No / Unsure 05/19/2022 11:07 AM EDT documented as of this encounter Plan of Treatment Not on file documented as of this encounter Procedures Procedure Name Priority Date/Time Associated Diagnosis Comments OUTSIDE PATHOLOGY Routine 05/26/2022 documented in this encounter Results * OUTSIDE PATHOLOGY (05/26/2022) Mauricio Stewart MD OUTSIDE LAB documented in this encounter Visit Diagnoses Not on filedocumented in this encounter Care Teams Sludge Filtration Attendant Relationship Specialty Start Date End Date Jan Palomino DO PCP - General Internal Medicine 08/11/21 11/16/23 Letitia Khalil MD [address] [place] [address] [place] [address] PCP - General Internal Medicine 11/17/23 06/21/24 [facility], Pcp [address] [place] [address] [facility] [place] [address] PCP - General Internal Medicine 06/22/24 Lane Valdes MD Specialist Cardiovascular Disease 01/14/22 Beti [place] MD [address] [facility] [place] [address] UROGYNECOLOGY 07/07/23 Juani Rhodes NP [address] [facility] [place] [address] Cardiology 07/07/23 documented as of this encounter
--- OUTSIDE RECORDS SUMMARY | 2024-12-31 10:41 | XMS_ITS | Encounter Summary ---
Author Organization [facility] Address [address] [place] [address] Care Team Providers Care Computational Mathematician Name Role Phone Jan Palomino DO Primary Care Provider Lane Macario MD Unavailable Unavailable Beti [place] MD Unavailable Juani Rhodes NP Unavailable [phone] Letitia Khalil MD Primary Care Provider Un available [facility], Pcp Primary Care Provider Unavailabl e Encounter Details Date Type Department Care Team Description 05/24/2023 Hospital Medical Records [address] [place] [address] Beti [place] MD [address] [facility] [place] [address] Social History Tobacco Use Types Packs/Day Years [...] on filedocumented in this encounter Care Teams Computational Mathematician Relationship Specialty Start Date End Date Jan Palomino DO PCP - General Internal Medicine 08/11/21 11/16/23 Letitia Khalil MD [address] [place] [address] [facility] [place] [address] PCP - General Internal Medicine 11/17/23 06/21/24 [facility], Pcp [address] [place] [place] [address] [place] [address] PCP - General Internal Medicine 06/22/24 Lane Valdes MD Specialist Cardiovascular Disease 01/14/22 Beti [place] MD [address] [place] [address] [place] [address] UROGYNECOLOGY 07/07/23 Juani Rhodes, ISAC [address] [facility] [place] [address] Cardiology 07/07/23 documented as of this encounter
--- OUTSIDE RECORDS SUMMARY | 2024-12-31 10:41 | XMS_ITS | Encounter Summary ---
Author Organization [facility] Address [address] [place] [address] Care Team Providers Care Optical Lab Technician Name Role Phone Jan Palomino DO Primary Care Provider UnavailLane Banerjee MD Unavailable Unavailable Beti [place] MD Unavailable Juani Rhodes NP Unavailable [phone] Letitia Khalil MD Primary Care Provider Un available [facility], Pcp Primary Care Provider Unavailabl e Encounter Details Date Type Department Care Team Description 05/26/2022 Hospital Medical Records [address] [place] [address] Mauricio Stewart MD [address] [place] [address] [place] [address] Social History Tobacco Use Types Packs/Day Years [...] on filedocumented in this encounter Care Teams Optical Lab Technician Relationship Specialty Start Date End Date Jan Palomino DO PCP - General Internal Medicine 08/11/21 11/16/23 Letitia Khalil MD 4 [facility] [place] [address] PCP - General Internal Medicine 11/17/23 06/21/24 [facility], Pcp [address] [place] [address] [place] [address] PCP - General Internal Medicine 06/22/24 Lane Valdes MD Specialist Cardiovascular Disease 01/14/22 Beti [place] MD [facility] [place] [address] UROGYNECOLOGY 07/07/23 Juani Rhodes, ISAC [address] [facility] [place] [address] Cardiology 07/07/23 documented as of this encounter
--- OUTSIDE RECORDS SUMMARY | 2024-12-31 10:41 | XMS_ITS | Encounter Summary ---
Author Organization [facility] Address [address] [place] [address] Care Team Providers Care Registered Nurse Obstetrics Name Role Phone Jan Plaomino DO Primary Care Provider UnavailLane Banerjee MD Unavailable Unavailable Beti Greenwood MD Unavailable Juani Rhodes NP Unavailable [phone] Letitia Khalil MD Primary Care Provider Un available [facility], Pcp Primary Care Provider Unavailabl e Encounter Details Date Type Department Care Team Description 05/09/2023 Telephone Adult Medicine - [address] [address] Jan Palomino, Social History Tobacco Use Types [...] often do you attend chur ch or rastafarian services? Never 07/12/2023 Do you belong to [...] Telephone Encounter - Kimberley John M.A. - 05/09/2023 1:58 PM EDT Pt was advised to continue to follow up with orthopedics documented in this encounter Plan of Treatment Not on file documented as of this encounter Visit Diagnoses Not on filedocumented in this encounter Care Teams Registered Nurse Obstetrics Relationship Specialty Start Date End Date Jan Palomino DO PCP - General Internal Medicine 08/11/21 11/16/23 Letitia Khalil MD [address] [place] [address] TYESHA [place] [address] PCP - General Internal Medicine 11/17/23 06/21/24 [facility], Pcp [address] [place], [place] [address] [place] [address] PCP - General Internal Medicine 06/22/24 Lane Valdes MD Specialist Cardiovascular Disease 01/14/22 Beti Greenwood MD [address] [facility] [place] [address] UROGYNECOLOGY 07/07/23 Juani Rhodes NP [address] [facility] [place]rogynecology [place] [address] Cardiology 07/07/23 documented as of this encounter
--- OUTSIDE RECORDS SUMMARY | 2024-12-31 10:41 | XMS_ITS | Encounter Summary ---
Author Organization [facility] Address [address] [place] [address] Care Team Providers Care Emery Wheel Worker Name Role Phone Jan Palomino DO Primary Care Provider UnavailLane Banerjee MD Unavailable Unavailable Beti Greenwood MD Unavailable Juani Rhodes NP Unavailable [phone] Letitia Khalil MD Primary Care Provider Un available [facility], Pcp Primary Care Provider Unavailabl e Encounter Details Date Type Department Care Team Description 12/10/2022 Disability Case Manager Report Medical Records [address] [place] [address] Dilcia Meadows NP Social History Tobacco Use [...] often do you attend chur ch or pentecostalism services? Never 07/12/2023 Do you [...] on filedocumented in this encounter Care Teams Emery Wheel Worker Relationship Specialty Start Date End Date Jan Palomino, PCP - General Internal Medicine 08/11/21 11/16/23 Letitia Khalil MD [facility] [place] [address] PCP - General Internal Medicine 11/17/23 06/21/24 [facility], Pcp [address] [place] [address] PCP - General Internal Medicine 06/22/24 Lane Valdes MD Specialist Cardiovascular Disease 01/14/22 Beti Greenwood MD [address] [facility] [place] [address] UROGYNECOLOGY 07/07/23 Juani Rhodes NP [address] [facility] [place] [address] Cardiology 07/07/23 documented as of this encounter
--- OUTSIDE RECORDS SUMMARY | 2024-12-31 10:41 | XMS_ITS | Encounter Summary ---
Author Organization [email or web address] [facility] Address [address] [place] [address] Care Team Providers Care Waste Management Recycling Technician Name Role Phone Jan Palomino DO Primary Care Provider UnavailLane Banerjee MD Unavailable Unavailable Beti Greenwood MD Unavailable Juani Rhodes NP Unavailable [phone] Letitia Khalil MD Primary Care Provider Un available [facility], Pcp Primary Care Provider Unavailabl e Reason for Visit * Reason Onset Date Comments Medication 05/21/2022 Encounter Details Date Type Department Care Team Description 05/21/2022 Refill Gastroenterology - [place] [address] [facility] [address] [place] [id number] Mauricio Stewart MD [address] [facility] [address] [place] [address] Medication Social History Tobacco Use Types Packs/Day [...] any clubs o r organizations such as latter day groups, unions, fraternal or athletic groups, or [...] on filedocumented in this encounter Care Teams Waste Management Recycling Technician Relationship Specialty Start Date End Date Jan Palomino DO PCP - General Internal Medicine 08/11/21 11/16/23 Letitia Khalil MD [address] [place] [address] [place] [address] PCP - General Internal Medicine 11/17/23 06/21/24 [facility], Pcp [address] [place] [address] [place] [address] PCP - General Internal Medicine 06/22/24 Lane Valdes MD Specialist Cardiovascular Disease 01/14/22 Beti Greenwood MD [address] [place] [address] [place] [address] UROGYNECOLOGY 07/07/23 Juani Rhodes, ISAC [address] [facility] [place] [address] Cardiology 07/07/23 documented as of this encounter
--- OUTSIDE RECORDS SUMMARY | 2024-12-31 10:41 | XMS_ITS | Encounter Summary ---
Author Organization [facility] Address [address] [place] [address] Care Team Providers Care Director Of Diagnostic Imaging Name Role Phone Jan Palomino DO Primary Care Provider UnavailLane Banerjee MD Unavailable Unavailable Beti Greenwood MD Unavailable Juani Rhodes NP Unavailable [phone] Letitia Khalil MD Primary Care Provider Un available [facility], Pcp Primary Care Provider Unavailabl e Encounter Details Date Type Department Care Team Description 11/05/2022 Water Taxi Boat Mate Report Medical Records [address] [place] [address] Gumaro Vazquez MD Social History Tobacco Use [...] in this encounter Care Teams Director Of Diagnostic Imaging Relationship Specialty Start Date End Date Jan Palomino, PCP - General Internal Medicine 08/11/21 11/16/23 Letitia Khalil MD [address] [place] [address] [place] [address] PCP - General Internal Medicine 11/17/23 06/21/24 [facility], Pcp [address] [place] [address] PCP - General Internal Medicine 06/22/24 Lane Valdes MD Specialist Cardiovascular Disease 01/14/22 Beti Greenwood MD 4 [facility] [place] [address] UROGYNECOLOGY 07/07/23 Juani Rhodes NP 444 [facility] [place] [address] Cardiology 07/07/23 documented as of this encounter
--- OUTSIDE RECORDS SUMMARY | 2024-12-31 10:41 | XMS_ITS | Encounter Summary ---
Author Organization [facility] Address [address] [place] [address] Care Team Providers Care Painter Interior Finish Name Role Phone Jan Palomino DO Primary Care Provider UnavailLane Banerjee MD Unavailable Unavailable Beti Greenwood MD Unavailable Juani Rhodes NP Unavailable Letitia Khalil MD Primary Care Provider Un available [facility], Pcp Primary Care Provider Unavailabl e Encounter Details Date Type Department Care Team Description 07/11/2023 Radial Drill Press Operator Report Medical Records [address] [place] [address] Gumaro Vazquez MD Social History Tobacco Use [...] place to sleep or slept in a intermediate (including now)? No 07/12/2023 Sex Assigned at [...] on filedocumented in this encounter Care Teams Painter Interior Finish Relationship Specialty Start Date End Date Jan Palomino DO PCP - General Internal Medicine 08/11/21 11/16/23 Letitia Khalil MD 4 [facility] [place] [address] PCP - General Internal Medicine 11/17/23 06/21/24 [facility], Pcp [address] [place] [address] [place] [address] PCP - General Internal Medicine 06/22/24 Lane Valdes MD Specialist Cardiovascular Disease 01/14/22 Beti Greenwood MD 4 [facility] [place] [address] UROGYNECOLOGY 07/07/23 Juani Rhodes NP 444 [facility] [place] [address] Cardiology 07/07/23 documented as of this encounter
--- OUTSIDE RECORDS SUMMARY | 2024-12-31 10:41 | XMS_ITS | Encounter Summary ---
Author Organization [facility] Address [address] [place] [address] Care Team Providers Care Yarder Boss Name Role Phone Jan Palomino DO Primary Care Provider UnavailLane Banerjee MD Unavailable Unavailable Beti Greenwood MD Unavailable Juani Rhodes NP Unavailable [phone] Letitia Khalil MD Primary Care Provider Un available [facility], Pcp Primary Care Provider Unavailabl e Encounter Details Date Type Department Care Team Description 05/27/2023 Telephone Urogy[address] [phone] Beti Greenwood MD [address] [place] [address] [place] [address] Social History Tobacco Use Types Packs/Day Years [...] How often do you attend chur or zoroastrianism services? Never 07/12/2023 Do you belong to any clubs o r organizations such as baptism groups, unions, fraternal or athletic groups, or [...] on filedocumented in this encounter Care Teams Yarder Boss Relationship Specialty Start Date End Date Jan Palomino DO PCP - General Internal Medicine 08/11/21 11/16/23 Letitia Khalil MD [address] [place], [place] [address] [address] PCP - General Internal Medicine 11/17/23 06/21/24 [facility], Pcp [address] [place] [address] [place] [address] PCP - General Internal Medicine 06/22/24 Lane Valdes MD Specialist Cardiovascular Disease 01/14/22 Beti Greenwood MD [address] [place], [place] [address], [place] [address] UROGYNECOLOGY 07/07/23 Juani Rhodes, ISAC 444 [facility] [place] [address] Cardiology 07/07/23 documented as of this encounter
--- OUTSIDE RECORDS SUMMARY | 2024-12-31 10:41 | XMS_ITS | Encounter Summary ---
Author Organization [facility] Address [address] [place] [address] Care Team Providers Care Crane Rigger Name Role Phone Jan Palomino DO Primary Care Provider UnavailLane Banerjee MD Unavailable Unavailable Beti Greenwood MD Unavailable Juani Rhodes NP Unavailable [phone] Letitia Khalil MD Primary Care Provider Un available [facility], Pcp Primary Care Provider Unavailabl e Encounter Details Date Type Department Care Team Description 12/27/2022 Pt. Non Urgent Medic al Question Adult Medicine - [address] [address] Jan Palomino DO Social History Tobacco Use [...] How often do you attend chur or catholic services? Never 07/12/2023 Do you belong to [...] Telephone Encounter - Anna Kemp M.A. - 12/27/2022 11:29 AM EDTFrom: Neha Wright To: Jyoti Palomino Sent: 12/27/2022 11:16 AM EDT Subject: radha Wright This is to let you know my 's confirmation number for his referral to urology [id number] His cell phone is [phone] documented in this encounter Plan of Treatment Not on file documented as of this encounter Visit Diagnoses Not on filedocumented in this encounter Care Teams Crane Rigger Relationship Specialty Start Date End Date Jan Palomino DO PCP - General Internal Medicine 08/11/21 11/16/23 Letitia Khalil MD [address] [place] [address] [facility] [place] [address] PCP - General Internal Medicine 11/17/23 06/21/24 [facility], Pcp [address] [place] [address] [facility] [place] [address] PCP - General Internal Medicine 06/22/24 Lane Valdes MD Specialist Cardiovascular Disease 01/14/22 Beti Greenwood MD [address] [facility] [place] [address] UROGYNECOLOGY 07/07/23 Juani Rhodes NP 444 [facility] [place] [address] Cardiology 07/07/23 documented as of this encounter
--- OUTSIDE RECORDS SUMMARY | 2024-12-31 10:41 | XMS_ITS | Encounter Summary ---
Author Organization [facility] Address [address] [place] [address] Care Team Providers Care Ship Engines Operating Engineer Name Role Phone Scot Owen MD Primary Care Provider Unavailable Lukas Bradford MD Primary Care Provider Jan Juárez DO Primary Care Provider UnavailLane Banerjee MD Unavailable Unavailable Beti Greenwood MD Unavailable Juani Rhodes NP Unavailable [phone] Letitia Khalil MD Primary Care Provider Un available [facility], Pcp Primary Care Provider Unavailabl e Encounter Details Date Type Department Care Team Description 05/02/2019 [facility] Medical Records [address] [place] [address] Abstract, Provider Social History Tobacco Use Types [...] How often do you attend chur or roman catholic services? Never 07/12/2023 Do you belong to any clubs o r organizations such as caodaism groups, unions, fraternal or athletic groups, or [...] on filedocumented in this encounter Care Teams Ship Engines Operating Engineer Relationship Specialty Start Date End Date Scot Owen MD PCP - General Internal Medicine 01/23/1606/30/21 Lukas Bradford MD PCP - General Internal Medicine 07/01/21 08/10/21 Jan Palomino DO PCP - General Internal Medicine 08/11/21 11/16/23 Letitia Khalil MD [address] [place] [address] [facility] [place] [address] PCP - General Internal Medicine 11/17/23 06/21/24 [facility], Pcp [address] [place] [address] [facility]gy[facility]ologTr[facility] [place] [address] PCP - General Internal Medicine 06/22/24 Lane Valdes MD Specialist Cardiovascular Disease 01/14/22 Beti Greenwood MD [address] [place] [address] UrogynecologTrigg [place] [address] UROGYNECOLOGY 07/07/23 Juani Rhodes, ISAC 444 [facility] [place] [address] Cardiology 07/07/23 documented as of this encounter
--- OUTSIDE RECORDS SUMMARY | 2024-12-31 10:41 | XMS_ITS | Encounter Summary ---
Author Organization [facility] Address [address] [place] [address] Care Team Providers Care Drum Tester Name Role Phone Pcp, No Primary Care Provider Unavailabl e Reason for Visit * Reason Comments Med Change Request Encounter Details Date Type Department Care Team (Late st Contact Info) Description 10/11/2024 Refill [facility] [address] [phone] Yaa Carbajal PA-C [address] [place] [address] Bacterial urinary tract infection Social History Tobacco Use Types Packs/Day Years Used Date Smoking Tobacco: Never Passive Smoke Exposure: Never Smokeless Tobacco: Never Comments Unknown Sex and Gender Information Value Date Recorded Sex Assigned at Female 05/01/2023 3:18 PM EDT Legal Sex Female 1:02 PM EST Gender Identity Female 05/01/2023 3:18 PM EDT Sexual Orientation Choose not to disclose 2022 3:18 PM EDT documented as of this encounter Plan of Treatment Not on file documented as of this encounter Visit Diagnoses Diagnosis Bacterial urinary tract infection documented in this encounter Care Teams Drum Tester Relationship Specialty Start Date End Date Pcp, No PCP - General General Medicine 09/27/24 documented as of this encounter
--- OUTSIDE RECORDS SUMMARY | 2024-12-31 10:41 | XMS_ITS | Encounter Summary ---
Author Organization [facility] Address [address] [place] [address] Care Team Providers Care Mixing Machine Tender Cork Gasket Name Role Phone Jan Palomino DO Primary Care Provider UnavailLane Banerjee MD Unavailable Unavailable Beti Greenwood MD Unavailable Juani Rhodes NP Unavailable [phone] Letitia Khalil MD Primary Care Provider Un available [facility], Pcp Primary Care Provider Unavailabl e Reason for Visit * Reason Onset Date Comments Pre-op Needed 03/29/2023 Encounter Details Date Type Department Care Team Description 03/29/2023 Pt. Non Urgent Medic al Question Adult Medicine - [address] [address] Jan Palomino DO Social History Tobacco Use [...] How often do you attend chur or buddhist services? Never 07/12/2023 Do you belong to [...] on filedocumented in this encounter Care Teams Mixing Machine Tender Cork Gasket Relationship Specialty Start Date End Date Jan Palomino DO PCP - General Internal Medicine 08/11/21 11/16/23 Letitia Khalil MD 444 [facility] [place] [address] PCP - General Internal Medicine 11/17/23 06/21/24 [facility], Pcp [address] [facility]Nov[facility] [place] [address] PCP - General Internal Medicine 06/22/24 Lane Valdes MD Specialist Cardiovascular Disease 01/14/22 Beti Greenwood MD [address] [facility] [place] [address] UROGYNECOLOGY 07/07/23 Juani Rhodes, ISAC 444 [facility] [place] [address] Cardiology 07/07/23 documented as of this encounter
--- OUTSIDE RECORDS SUMMARY | 2024-12-31 10:41 | XMS_ITS | Encounter Summary ---
Author Organization [facility] Address [address] [place] [address] Care Team Providers Care Environmental Maintenance Worker Name Role Phone Scot Owen MD Primary Care Provider Unavailable Lukas Bradford MD Primary Care Provider Jan Juárez DO Primary Care Provider UnavailLane Banerjee MD Unavailable Unavailable Beti Greenwood MD Unavailable Juani Rhodes NP Unavailable [phone] Letitia Khalil MD Primary Care Provider Un available [facility], Pcp Primary Care Provider Unavailabl e Encounter Details Date Type Department Care Team Description 09/10/2020 [facility] Medical Records [address] [place] [address] Abstract, Provider Social History Tobacco Use Types [...] How often do you attend chur or nondenominational services? Never 07/12/2023 Do you [...] on filedocumented in this encounter Care Teams Environmental Maintenance Worker Relationship Specialty Start Date End Date Scot Owen MD PCP - General Internal Medicine 01/23/1606/30/21 Lukas Bradford MD PCP - General Internal Medicine 07/01/21 08/10/21 Jan Palomino DO PCP - General Internal Medicine 08/11/21 11/16/23 Letitia Khalil MD [address] [place] [address] [facility] [place] [address] PCP - General Internal Medicine 11/17/23 06/21/24 [facility], Pcp [address] [place] [address] [place] [address] PCP - General Internal Medicine 06/22/24 Lane Valdes MD Specialist Cardiovascular Disease 01/14/22 Beti Greenwood MD [address] [place] [address] [place] [address] UROGYNECOLOGY 07/07/23 Juani Rhodes, ISAC 444 [facility] [place] [address] Cardiology 07/07/23 documented as of this encounter
--- OUTSIDE RECORDS SUMMARY | 2024-12-31 10:41 | XMS_ITS | Encounter Summary ---
Author Organization [facility] Address [address] [place] [address] Care Team Providers Care Can Striper Name Role Phone Jan Palomino DO Primary Care Provider UnavailLane Banerjee MD Unavailable Unavailable Beti Greenwood MD Unavailable Juani Rhodes NP Unavailable [phone] Letitia Khalil MD Primary Care Provider Un available [facility], Pcp Primary Care Provider Unavailabl e Encounter Details Date Type Department Care Team Description 04/21/2023 [facility] Medical Records [address] [place] [address] Abstract, Provider Social History Tobacco Use Types [...] often do you attend chur ch or gnosticism services? Never 07/12/2023 Do you belong to [...] suspected to have Coronavirus/COVID-19? No / Unsure 04/05/2023 8:37 AM EDT documented as of this encounter Plan of Treatment Not on file documented as of this encounter Procedures Procedure Name Priority Date/Time Associated Diagnosis Comments OUTSIDE LAB Routine 04/21/2023 documented in this encounter Results * OUTSIDE LAB (04/21/2023) Provider Abstract LAB documented in this encounter Visit Diagnoses Not on filedocumented in this encounter Care Teams Can Striper Relationship Specialty Start Date End Date Jan Palomino DO PCP - General Internal Medicine 08/11/21 11/16/23 Letitia Khalil MD 444 [facility] [place] [address] PCP - General Internal Medicine 11/17/23 06/21/24 [facility] Pcp [address] [place] [address] [place] [address] PCP - General Internal Medicine 06/22/24 Lane Valdes MD Specialist Cardiovascular Disease 01/14/22 Beti Greenwood MD 4 [facility] [place] [address] UROGYNECOLOGY 07/07/23 Juani Rhodes, VETERINARIAN EPIDEMIOLOGIST 444 [facility] [place] [address] Cardiology 07/07/23 documented as of this encounter
--- OUTSIDE RECORDS SUMMARY | 2024-12-31 10:41 | XMS_ITS | Encounter Summary ---
Author Organization [facility] Address [address] [place] [address] Care Team Providers Care Casing Crew Name Role Phone Scot Owen MD Primary Care Provider Unavailable Lukas Bradford MD Primary Care Provider Jan Juárez DO Primary Care Provider UnavailLane Banerjee MD Unavailable Unavailable Beti Greenwood MD Unavailable Juani Rhodes NP Unavailable Letitia Khalil MD Primary Care Provider Un available [facility], Pcp Primary Care Provider Unavailabl e Encounter Details Date Type Department Care Team Description 05/11/2019 [facility] Medical Records [address] [place] [address] Abstract, Provider Social History Tobacco Use Types [...] any clubs o r organizations such as adventist groups, unions, fraternal or athletic groups, or [...] on filedocumented in this encounter Care Teams Casing Crew Relationship Specialty Start Date End Date Scot Owen MD PCP - General Internal Medicine 01/23/1606/30/21 Lukas Bradford MD PCP - General Internal Medicine 07/01/21 08/10/21 Jan Palomino DO PCP - General Internal Medicine 08/11/21 11/16/23 Letitia Khalil MD [address] [place] [address] [place] [address] PCP - General Internal Medicine 11/17/23 06/21/24 [facility], Pcp [address] [place] [address] [facility]rogy[facility]ologC[facility] [place] [address] PCP - General Internal Medicine 06/22/24 Lane Valdes MD Specialist Cardiovascular Disease 01/14/22 Beti Greenwood MD [address] [place] [address] [facility]ologC[facility] [place] [address] UROGYNECOLOGY 07/07/23 Juani Rhodes, ISAC 444 [facility] [place] [address] Cardiology 07/07/23 documented as of this encounter
--- OUTSIDE RECORDS SUMMARY | 2024-12-31 10:41 | XMS_ITS | Encounter Summary ---
Author Organization [facility] Address [address] [place] [address] Care Team Providers Care Leasing Sales Consultant Name Role Phone Jan Palomino DO Primary Care Provider UnavailLane Banerjee MD Unavailable Unavailable Beti Greenwood MD Unavailable Juani Rhodes NP Unavailable [phone] Letitia Khalil MD Primary Care Provider Un available [facility], Pcp Primary Care Provider Unavailabl e Encounter Details Date Type Department Care Team Description 01/07/2023 Portfolio Administrator Report Medical Records [address] [place] [id number] Dilcia Meadows NP Social History Tobacco Use [...] often do you attend chur ch or zoroastrian services? Never 07/12/2023 Do you belong to [...] on filedocumented in this encounter Care Teams Leasing Sales Consultant Relationship Specialty Start Date End Date Jan Palomino, PCP - General Internal Medicine 08/11/21 11/16/23 Letitia Khalil MD 4 [facility] [place] [address] PCP - General Internal Medicine 11/17/23 06/21/24 [facility], Pcp [address] [place] [address] PCP - General Internal Medicine 06/22/24 Lane Valdes MD Specialist Cardiovascular Disease 01/14/22 Beti Greenwood MD [address] [facility] [place] [address] UROGYNECOLOGY 07/07/23 Juani Rhodes NP [address] [facility] [place] [address] Cardiology 07/07/23 documented as of this encounter
--- OUTSIDE RECORDS SUMMARY | 2024-12-31 10:41 | XMS_ITS | Encounter Summary ---
Author Organization [facility] Address [address] [place] [address] Care Team Providers Care Gynecologist Name Role Phone Jan Palomino DO Primary Care Provider UnavailLane Banerjee MD Unavailable Unavailable Beti Greenwood MD Unavailable Juani Rhodes NP Unavailable [phone] Letitia Khalil MD Primary Care Provider Un available Replaced By [facility], Pcp Primary Care Provider Unavailabl e Encounter Details Date Type Department Care Team Description 05/06/2023 Chair Inspector Report Medical Records [address] [place] [address] Gumaro Vazquez MD Social History Tobacco Use [...] on filedocumented in this encounter Care Teams Gynecologist Relationship Specialty Start Date End Date Jan Palomino DO PCP - General Internal Medicine 08/11/21 11/16/23 Letitia Khalil MD 4 [facility] [place] [address] PCP - General Internal Medicine 11/17/23 06/21/24 Replaced By [facility], Pcp [address] [place] [address] [place] [address] PCP - General Internal Medicine 06/22/24 Lane Valdes MD Specialist Cardiovascular Disease 01/14/22 Beti Greenwood MD 4 [facility] [place] [address] UROGYNECOLOGY 07/07/23 Juani Rhodes NP 444 [facility] [place] [address] Cardiology 07/07/23 documented as of this encounter
--- OUTSIDE RECORDS SUMMARY | 2024-12-31 10:41 | XMS_ITS | Encounter Summary ---
Author Organization [facility] Address [address] [place] [address] Care Team Providers Care Roll Inspector Name Role Phone Jan Palomino DO Primary Care Provider Lane Macario MD Unavailable Unavailable Beti Greenwood MD Unavailable Juani Rhodes NP Unavailable [phone] Letitia Khalil MD Primary Care Provider Un available [facility], Pcp Primary Care Provider Unavailabl e Encounter Details Date Type Department Care Team Description 05/03/2023 Pt. Non Urgent Medical Question Urogynecology [address] [address] Beti Greenwood MD [address] [place] [address] [place] [address] Social History Tobacco Use Types Packs/Day Years [...] How often do you attend chur or adventism services? Never 07/12/2023 Do you belong to [...] on filedocumented in this encounter Care Teams Roll Inspector Relationship Specialty Start Date End Date Jan Palomino DO PCP - General Internal Medicine 08/11/21 11/16/23 Leittia Khalil MD [address] [place], [place] [address] [address] PCP - General Internal Medicine 11/17/23 06/21/24 [facility], Pcp [address] [place] [address] UroneSouthwestern [place] [address] PCP - General Internal Medicine 06/22/24 Lane Valdes MD Specialist Cardiovascular Disease 01/14/22 Beti Greenwood MD [address] [place] [address] [place] [address] UROGYNECOLOGY 07/07/23 Juani Rhodes, SUPPORT DBA [address] [facility] UrogynecologRobley Rex [place] [address] Cardiology 07/07/23 documented as of this encounter
--- OUTSIDE RECORDS SUMMARY | 2024-12-31 10:42 | XMS_ITS | Encounter Summary ---
Author Organization [facility] Address [address] [place] [address] Care Team Providers Care Parts Professional Name Role Phone Scot Owen MD Primary Care Provider Unavailable Lukas Bradford MD Primary Care Provider Jan Juárez DO Primary Care Provider UnavailLane Banerjee MD Unavailable Unavailable Beti Greenwood MD Unavailable Juani Rhodes NP Unavailable [phone] Letitia Khalil MD Primary Care Provider Un available [facility], Pcp Primary Care Provider Unavailabl e Encounter Details Date Type Department Care Team Description 06/16/2020 Pt. Non Urgent Medic al Question Adult Medicine - [address] [address] Scot Owen MD Social History Tobacco Use [...] any clubs o r organizations such as druze groups, unions, fraternal or athletic groups, or [...] on filedocumented in this encounter Care Teams Parts Professional Relationship Specialty Start Date End Date Scot Owen MD PCP - General Internal Medicine 01/23/1606/30/21 Lukas Bradford MD PCP - General Internal Medicine 07/01/21 08/10/21 Jan Palomino DO PCP - General Internal Medicine 08/11/21 11/16/23 Letitia Khalil MD [address] [place], [place] [address]gynecologCleveland [place] [address] PCP - General Internal Medicine 11/17/23 06/21/24 [facility], Pcp [address] [place] [address] UrogyFormerly [facility] [place] [address] PCP - General Internal Medicine 06/22/24 Lane Valdes MD Specialist Cardiovascular Disease 01/14/22 Beti Greenwood MD [address] [place] [address] [place] [address] UROGYNECOLOGY 07/07/23 Juani Rhodes NP [address] [place] [address] [place] [address] Cardiology 07/07/23 documented as of this encounter
--- OUTSIDE RECORDS SUMMARY | 2024-12-31 10:42 | XMS_ITS | Encounter Summary ---
Author Organization [facility] Address [address] [place] [address] Care Team Providers Care Director Script Name Role Phone Scot Owen MD Primary Care Provider Unavailable Lukas Bradford MD Primary Care Provider Jan Juárez DO Primary Care Provider UnavailLane Banerjee MD Unavailable Unavailable Beti Greenwood MD Unavailable Juani Rhodes NP Unavailable Letitia Khalil MD Primary Care Provider Un available [facility], Pcp Primary Care Provider Unavailabl e Encounter Details Date Type Department Care Team Description 12/31/2019 Pt. Non Urgent Medic al Question Adult Medicine - [address] [address] Scot Owen MD Social History Tobacco Use [...] any clubs o r organizations such as hindu groups, unions, fraternal or athletic groups, or [...] filedocumented in this encounter Care Teams Director Script Relationship Specialty Start Date End Date Scot Owen MD PCP - General Internal Medicine 01/23/1606/30/21 Lukas Bradford MD PCP - General Internal Medicine 07/01/21 08/10/21 Jan Palomino DO PCP - General Internal Medicine 08/11/21 11/16/23 Letitia Khalil MD [address] [place] [address] UrogynecologLouisville [place] [address] PCP - General Internal Medicine 11/17/23 06/21/24 [facility], Pcp [address] [place], [place] [address] [place] [address] PCP - General Internal Medicine 06/22/24 Lane Valdes MD Specialist Cardiovascular Disease 01/14/22 Beti Greenwood MD [address] [place], [place] [address] [place] [address] UROGYNECOLOGY 07/07/23 Juani Rhodes, ISAC [address] [facility] [place] [address] Cardiology 07/07/23 documented as of this encounter
--- OUTSIDE RECORDS SUMMARY | 2024-12-31 10:42 | XMS_ITS | Encounter Summary ---
Author Organization [facility] Address [address] [place] [address] Care Team Providers Care Stationary Engineer Apprentice Name Role Phone AshliAlexel Abebe Primary Care Provider UnaKristina Herrera MD Primary Care Provider UnavailScot Hansen MD Primary Care Provider Unavailable Lukas Bradford MD Primary Care Provider Jan Juárez DO Primary Care Provider Unavaila Lane Villalobos MD Unavailable Unavailable Beti Greenwood MD Unavailable Juani Rhodes NP Unavailable [phone] Letitia Khalil MD Primary Care Provider Un available [facility], Pcp Primary Care Provider Unavailabl e Encounter Details Date Type Department Care Team Description 11/03/2014 Pt. Non Urgent Medic al Question Physiatry - [address] [address] Niels Jackson DO Social History Tobacco Use [...] How often do you attend chur or lutheran services? Never 07/12/2023 Do you belong to any clubs o r organizations such as buddhism groups, unions, fraApakau or athletic groups, or school groups? Yes [...] on filedocumented in this encounter Care Teams Stationary Engineer Apprentice Relationship Specialty Start Date End Date Samuel Cornelius PCP - General 08/29/05 12/24/15 Kristina Chatman MD PCP - General Internal Medicine 12/25/15 01/22/16 Scot Owen MD PCP - General Internal Medicine 01/23/1606/30/21 Lukas Bradford MD PCP - General Internal Medicine 07/01/21 08/10/21 Jan Palomino DO PCP - General Internal Medicine 08/11/21 11/16/23 Letitia Khalil MD [address] [place] [address] [place] [address] PCP - General Internal Medicine 11/17/23 06/21/24 [facility], [address] [place] [address] PCP - General Internal Medicine 06/22/24 Lane Valdes MD Specialist Cardiovascular Disease 01/14/22 Beti Greenwood MD 444 [facility] [place] [address] UROGYNECOLOGY 07/07/23 Juani Rhodes NP [address] [facility] [place] [address] Cardiology 07/07/23 documented as of this encounter
--- OUTSIDE RECORDS SUMMARY | 2024-12-31 10:42 | XMS_ITS | Encounter Summary ---
Author Organization [facility] Address [address] [place] [address] Care Team Providers Care Aircraft Instrument Engineer Name Role Phone Jan Palomino DO Primary Care Provider UnavailBeti Garcia MD Unavailable Juani Rhodes NP Unavailable [phone] Letitia Khalil MD Primary Care Provider Un available [facility], Pcp Primary Care Provider Unavailabl e Encounter Details Date Type Department Care Team Description 08/08/2023 Qa Test Analyst Report Medical Records [address] [place] [address] Gumaro Vazquez MD Social History Tobacco Use [...] often do you attend chur ch or anabaptism services? Never 07/12/2023 Do you [...] on filedocumented in this encounter Care Teams Aircraft Instrument Engineer Relationship Specialty Start Date End Date Jan Palomino, PCP - General Internal Medicine 08/11/21 11/16/23 Letitia Khalil MD [address] [facility] [place] [address] PCP - General Internal Medicine 11/17/23 06/21/24 [facility], Pcp [address] [facility] Urogynecolog[place] [address] PCP - General Internal Medicine 06/22/24 Beti Greenwood MD 444 [facility] HospitalgynecologGateway Rehabilitation [place] [address] UROGYNECOLOGY 07/07/23 Juani Rhodes NP [address] [facility] UrogynecologGateway Rehabilitation [place] [address] Cardiology 07/07/23 documented as of this encounter
--- OUTSIDE RECORDS SUMMARY | 2024-12-31 10:42 | XMS_ITS | Encounter Summary ---
Author Organization [facility] Address [address] [place] [address] Care Team Providers Care Restaurant Hourly Team Member Name Role Phone LeobardokennethSamuel Primary Care Provider UnaKristina Herrera MD Primary Care Provider UnavailScot Hansen MD Primary Care Provider Unavailable Lukas Bradford MD Primary Care Provider Jan Juárez DO Primary Care Provider Unavaila Lane Villalobos MD Unavailable Unavailable Beti Greenwood MD Unavailable Juani Rhodes NP Unavailable [phone] Letitia Khalil MD Primary Care Provider Un available [facility], Pcp Primary Care Provider Unavailabl e Encounter Details Date Type Department Care Team Description 07/10/2015 Hand Bender Report Medical Records [address] [place] [address] Sridhar Negrete Social History Tobacco Use Types [...] any clubs o r organizations such as alevism groups, unions, fraternal or athletic groups, or [...] on filedocumented in this encounter Care Teams Restaurant Hourly Team Member Relationship Specialty Start Date End Date Samuel Cornelius PCP - General 08/29/05 12/24/15 Kristina Chatman MD PCP - General Internal Medicine 12/25/15 01/22/16 Scot Owen MD PCP - General Internal Medicine 01/23/1606/30/21 Lukas Bradford MD PCP - General Internal Medicine 07/01/21 08/10/21 Jan Palomino DO PCP - General Internal Medicine 08/11/21 11/16/23 Letitia Khalil MD [address] [place] [address] [place] [address] PCP - General Internal Medicine 11/17/23 06/21/24 [facility], Pcp [address] [place] [address] [place] [address] PCP - General Internal Medicine 06/22/24 Lane Valdes MD Specialist Cardiovascular Disease 01/14/22 Beti Greenwood MD 444 [facility] [place] [address] UROGYNECOLOGY 07/07/23 Juani Rhodes NP 444 [facility] Urogynecology [facility] [place] [address] Cardiology 07/07/23 documented as of this encounter
--- OUTSIDE RECORDS SUMMARY | 2024-12-31 10:42 | XMS_ITS | Encounter Summary ---
Author Organization [facility] Address [address] [place] [address] Care Team Providers Care Painter And Decorator Name Role Phone Scot Owen MD Primary Care Provider Unavailable Lukas Bradford MD Primary Care Provider Jan Juárez DO Primary Care Provider UnavailLane Banerjee MD Unavailable Unavailable Beti Greenwood MD Unavailable Juani Rhodes NP Unavailable [phone] Letitia Khalil MD Primary Care Provider Un available [facility], Pcp Primary Care Provider Unavailabl e Encounter Details Date Type Department Care Team Description 08/09/2020 Pt. Non Urgent Medic al Question Adult Medicine - [address] [address] Scot Owen MD Social History Tobacco Use [...] How often do you attend chur or gnosticist services? Never 07/12/2023 Do you belong to [...] as of this encounter Progress Notes * Katia Arroyo L.P.N. - 08/11/2020 9:26 AM ESTFrom: Neha Wright To: Scot Owen MD Sent: 08/09/2020 7:23 AM EST Subject: prescription I have to fruit or nut picker a prescription on tuesday. Do i go to [place] or do i have to go to [place]? documented in this encounter Plan of Treatment Not on file documented as of this encounter Visit Diagnoses Not on filedocumented in this encounter Care Teams Painter And Decorator Relationship Specialty Start Date End Date Scot Owen MD PCP - General Internal Medicine 01/23/1606/30/21 Lukas Bradford MD PCP - General Internal Medicine 07/01/21 08/10/21 Jan Palomino DO PCP - General Internal Medicine 08/11/21 11/16/23 Letitia Khalil MD [address] [facility] [place] [address] PCP - General Internal Medicine 11/17/23 06/21/24 [facility], Pcp [address] [place] [address] [place] [address] PCP - General Internal Medicine 06/22/24 Lane Valdes MD Specialist Cardiovascular Disease 01/14/22 Beti Greenwood MD [address] [place] [address] [place] [address] UROGYNECOLOGY 07/07/23 Juani Rhodes NP 4 [facility] [place] [address] Cardiology 07/07/23 documented as of this encounter
--- OUTSIDE RECORDS SUMMARY | 2024-12-31 10:42 | XMS_ITS | Encounter Summary ---
Author Organization [facility] Address [address] [place] [address] Care Team Providers Care Critical Care Technician Name Role Phone Scot Owen MD Primary Care Provider Unavailable Lukas Bradford MD Primary Care Provider Jan Juárez DO Primary Care Provider UnavailLane Banerjee MD Unavailable Unavailable Beti Greenwood MD Unavailable Juani Rhodes NP Unavailable [phone] Letitia Khalil MD Primary Care Provider Un available [facility], Pcp Primary Care Provider Unavailabl e Encounter Details Date Type Department Care Team Description 01/28/2020 Pt. Non Urgent Medic al Question Adult Medicine [address] [address] Scot Owen MD Social History Tobacco Use [...] often do you attend chur ch or temple services? Never 07/12/2023 Do you belong to any clubs o r organizations such as anabaptism groups, unions, fraternal or athletic groups, or [...] Progress Notes * Ruby Kaur M.A. - 01/28/2020 10:11 AM EDTFrom: Neha Wright To: Scot Owen MD Sent: 01/28/2020 9:01 AM EDT Subject: medication I have tried to call and can't get through. My prescription is due today and i'm coming in to pick it up. I sent a message asking Dr. Ellison for a prescription for ativan and i called the number but can't get through. Could she please write me a prescription and put it with the one i am pickingup today ? Thank you. Neha Wright. documented in this encounter Plan of Treatment Not on file documented as of this encounter Visit Diagnoses Not on filedocumented in this encounter Care Teams Critical Care Technician Relationship Specialty Start Date End Date Scot Owen MD PCP - General Internal Medicine 01/23/1606/30/21 Lukas Bradford MD PCP - General Internal Medicine 07/01/21 08/10/21 Jan Palomino DO PCP - General Internal Medicine 08/11/21 11/16/23 Letitia Khalil MD [address] [place] [address] [place] [address] PCP - General Internal Medicine 11/17/23 06/21/24 [facility], [address] [place] [address] PCP - General Internal Medicine 06/22/24 Lane Valdes MD Specialist Cardiovascular Disease 01/14/22 Beti Greenwood MD [address] [place] [address] [place] [address] UROGYNECOLOGY 07/07/23 Juani Rhodes, SIAC [address] [place] [address] [place] [address] Cardiology 07/07/23 documented as of this encounter
--- OUTSIDE RECORDS SUMMARY | 2024-12-31 10:42 | XMS_ITS | Encounter Summary ---
Author Organization [facility] Address [address] [place] [address] Care Team Providers Care Board Certified Behavioral Analyst Name Role Phone Samuel Cornelius Primary Care Provider UnaKristina Herrera MD Primary Care Provider UnavailScot Hansen MD Primary Care Provider Unavailable Lukas Bradford MD Primary Care Provider Jan Juárez DO Primary Care Provider Unavaila Lane Villalobos MD Unavailable Unavailable Beti Greenwood MD Unavailable Juani Rhodes NP Unavailable [phone] Letitia Khalil MD Primary Care Provider Un available [facility], Pcp Primary Care Provider Unavailabl e Encounter Details Date Type Department Care Team Description 03/13/2014 Pt. Non Urgent Medical Question Adult Medicine - [address] [address] Samuel Cornelius Social History Tobacco Use Types [...] often do you attend chur ch or adventism services? Never 07/12/2023 Do you [...] of this encounter Progress Notes * Selene Byole L.P.N. - 03/14/2014 8:39 AM EDTFrom: Neha [...] on filedocumented in this encounter Care Teams Board Certified Behavioral Analyst Relationship Specialty Start Date End Date Samuel Cornelius PCP - General 08/29/05 12/24/15 Kristina Chatman MD PCP - General Internal Medicine 12/25/15 01/22/16 Scot Owen MD PCP - General Internal Medicine 01/23/1606/30/21 Lukas Bradford MD PCP - General Internal Medicine 07/01/21 08/10/21 Jan Palomino DO PCP - General Internal Medicine 08/11/21 11/16/23 Letitia Khalil MD 4 [facility] [place] [address] PCP - General Internal Medicine 11/17/23 06/21/24 [facility], Pcp [address] [place] [address] [place] [address] PCP - General Internal Medicine 06/22/24 Lane Valdes MD Specialist Cardiovascular Disease 01/14/22 Beti Greenwood MD [address] [place] [address] [place] [address] UROGYNECOLOGY 07/07/23 Juani Rhodes NP 4 [facility] [place] [address] Cardiology 07/07/23 documented as of this encounter
--- OUTSIDE RECORDS SUMMARY | 2024-12-31 10:42 | XMS_ITS | Encounter Summary ---
Author Organization [facility] Address [address] [place] [address] Care Team Providers Care Title Clerk Automobile Name Role Phone Scot Owen MD Primary Care Provider Unavailable Lukas Bradford MD Primary Care Provider Jan Juárez DO Primary Care Provider UnavailLane Banerjee MD Unavailable Unavailable Beti Green[place] MD Unavailable Juani Rhodes NP Unavailable [phone] Letitia Khalil MD Primary Care Provider Un available [facility], Pcp Primary Care Provider Unavailabl e Encounter Details Date Type Department Care Team Description 12/10/2019 [facility] Medical Records [address] [place] [address] Abstract, Provider Social History Tobacco Use Types [...] How often do you attend chur or mormon services? Never 07/12/2023 Do you belong to [...] on filedocumented in this encounter Care Teams Title Clerk Automobile Relationship Specialty Start Date End Date Scot Owen MD PCP - General Internal Medicine 01/23/1606/30/21 Lukas Bradford MD PCP - General Internal Medicine 07/01/21 08/10/21 Jan Palomino DO PCP - General Internal Medicine 08/11/21 11/16/23 Lettiia Khalil MD [address] [place] [address] [facility]gynecologMetro[place] [address] PCP - General Internal Medicine 11/17/23 06/21/24 [facility], Pcp [address] [place] [address] [facility] [facility] [place] [address] PCP - General Internal Medicine 06/22/24 Lane Valdes MD Specialist Cardiovascular Disease 01/14/22 Beti Greenwood MD [address] [place] [address] UrogynecologAR[facility] [place] [address] UROGYNECOLOGY 07/07/23 Juani Rhodes, ISAC [address] [facility] [place] [address] Cardiology 07/07/23 documented as of this encounter
--- OUTSIDE RECORDS SUMMARY | 2024-12-31 10:42 | XMS_ITS | Encounter Summary ---
[facility] Organization [facility] Address [address] [place] [address] Care Team Providers Care Public Aid Eligibility Assistant Name Role Phone Scot Owen MD Primary Care Provider Unavailable Lukas Bradford MD Primary Care Provider Jan Juárez DO Primary Care Provider UnavailLane Banerjee MD Unavailable Unavailable Beti Greenwood MD Unavailable Juani Rhodes NP Unavailable [phone] Letitia Khalil MD Primary Care Provider Un available [facility], [facility], Pcp Primary Care Provider Unavailabl e Encounter Details Date Type Department Care Team Description 05/21/2020 [facility] Medical Records [address] [place] [address] Abstract, Provider Social History Tobacco Use Types [...] have Coronavirus / COVID-19? No / Unsure 05/13/2020 9:42 AM EDT documented as of this encounter Plan of Treatment Not on file documented as of this encounter Visit Diagnoses Not on filedocumented in this encounter Care Teams Public Aid Eligibility Assistant Relationship Specialty Start Date End Date Scot Owen MD PCP - General Internal Medicine 01/23/1606/30/21 Lukas Bradford MD PCP - General Internal Medicine 07/01/21 08/10/21 Jan Palomino DO PCP - General Internal Medicine 08/11/21 11/16/23 Letitia Khalil MD [address] [place] [address] [place] [address] PCP - General Internal Medicine 11/17/23 06/21/24 [facility], [facility], Pcp [address] [place] [address] [place] [address] PCP - General Internal Medicine 06/22/24 Lane Valdes MD Specialist Cardiovascular Disease 01/14/22 Beti Greenwood MD [address] [facility] [place] [address] UROGYNECOLOGY 07/07/23 Juani Rhodes NP [address] [facility] [place] [address] Cardiology 07/07/23 documented as of this encounter
--- OUTSIDE RECORDS SUMMARY | 2024-12-31 10:42 | XMS_ITS | Encounter Summary ---
Author Organization [facility] Address [address] [place] [address] Care Team Providers Care Computer Information Systems Instructor Name Role Phone Scot Owen MD Primary Care Provider Unavailable Lukas Bradford MD Primary Care Provider Jan Juárez DO Primary Care Provider UnavailLane Banerjee MD Unavailable Unavailable Beti Greenwood MD Unavailable Juani Rhodes NP Unavailable [phone] Letitia Khalil MD Primary Care Provider Un available [facility], Pcp Primary Care Provider Unavailabl e Encounter Details Date Type Department Care Team Description 07/20/2019 [facility] Medical Records [address] [place] [address] Abstract, Provider Social History Tobacco Use Types [...] How often do you attend chur or jewish services? Never 07/12/2023 Do you belong to any clubs o r organizations such as quaker groups, unions, fraternal or athletic groups, or [...] on filedocumented in this encounter Care Teams Computer Information Systems Instructor Relationship Specialty Start Date End Date Scot Owen MD PCP - General Internal Medicine 01/23/1606/30/21 Lukas Bradford MD PCP - General Internal Medicine 07/01/21 08/10/21 Jan Palomino DO PCP - General Internal Medicine 08/11/21 11/16/23 Letitia Khalil MD [address] [place] [address] [place] [address] PCP - General Internal Medicine 11/17/23 06/21/24 [facility], Pcp [address] [place] [address] UrogynecologCardinal Hill [place] [address] PCP - General Internal Medicine 06/22/24 Lane Valdes MD Specialist Cardiovascular Disease 01/14/22 Beti Greenwood MD [address] [place] [address] UrogynecologCardinal Hill [place] [address] UROGYNECOLOGY 07/07/23 Juani Rhodes, ISAC [address] [facility] [place] [address] Cardiology 07/07/23 documented as of this encounter
--- OUTSIDE RECORDS SUMMARY | 2024-12-31 10:42 | XMS_ITS | Encounter Summary ---
Author Organization [facility] Address [address] [place] [address] Care Team Providers Care Typing Secretary Name Role Phone Beti Greenwood MD Unavailable Juani Rhodes NP Unavailable [phone] Letitia Khalil MD Primary Care Provider Un available [facility], Pcp Primary Care Provider Unavailabl e Encounter Details Date Type Department Care Team Description 12/02/2023 Payroll Director Report Medical Records [address] [place] [address] Gumaro Vazquez MD Social History Tobacco Use [...] often do you attend chur ch or evangelical services? Never 07/12/2023 Do you belong to [...] on filedocumented in this encounter Care Teams Typing Secretary Relationship Specialty Start Date End Date Letitia Khalil MD [address] [facility] [place] [address] PCP - General Internal Medicine 11/17/23 06/21/24 [facility], Pcp [address] [facility] [place] [address] PCP - General Internal Medicine 06/22/24 Beti Greenwood MD 444 [place] [address] UROGYNECOLOGY 07/07/23 Juani Rhodes NP [address] [facility] [place] [address] Cardiology 07/07/23 documented as of this encounter
--- OUTSIDE RECORDS SUMMARY | 2024-12-31 10:42 | XMS_ITS | Encounter Summary ---
Author Organization [facility] [employer] [facility] Address [address] [place] [address] Care Team Providers Care Computing Tutor Name Role Phone Scot Owen MD Primary Care Provider Unavailable Lukas Bradford MD Primary Care Provider Jan Juárez DO Primary Care Provider UnavailLane Banerjee MD Unavailable Unavailable Beti Greenwood MD Unavailable Juani Rhodes NP Unavailable [phone] Letitia Khalil MD Primary Care Provider Un available [facility], Pcp Primary Care Provider Unavailabl e Encounter Details Date Type Department Care Team Description 09/09/2019 Refill Adult Medicine - [address] [address] Scot Owen MD Social History Tobacco Use [...] on filedocumented in this encounter Care Teams Computing Tutor Relationship Specialty Start Date End Date Scot Owen MD PCP - General Internal Medicine 01/23/1606/30/21 Lukas Bradford MD PCP - General Internal Medicine 07/01/21 08/10/21 Jan Palomino DO PCP - General Internal Medicine 08/11/21 11/16/23 Letitia Khalil MD 444 [facility] [place] [address] PCP - General Internal Medicine 11/17/23 06/21/24 [facility], Pcp [address] [place] [address] [place] [address] PCP - General Internal Medicine 06/22/24 Lane Valdes MD Specialist Cardiovascular Disease 01/14/22 Beti Greenwood MD 4 [facility] [place] [address] UROGYNECOLOGY 07/07/23 Juani Rhodes NP 4 [facility] [place] [address] Cardiology 07/07/23 documented as of this encounter
--- OUTSIDE RECORDS SUMMARY | 2024-12-31 10:42 | XMS_ITS | Encounter Summary ---
Author Organization [facility] Address [address] [place] [address] Care Team Providers Care Floriculturist Name Role Phone Scot Owen MD Primary Care Provider Unavailable Lukas Bradford MD Primary Care Provider Jan Juárez DO Primary Care Provider UnavailLane Banerjee MD Unavailable Unavailable Beti Greenwood MD Unavailable Juani Rhodes NP Unavailable [phone] Letitia Khalil MD Primary Care Provider Un available [facility], Pcp Primary Care Provider Unavailabl e Encounter Details Date Type Department Care Team Description 01/31/2020 [facility] Medical Records 4 [place] [address] Abstract, Provider Social History Tobacco Use Types [...] any clubs o r organizations such as nondenominational groups, unions, fraternal or athletic groups, or [...] on filedocumented in this encounter Care Teams Floriculturist Relationship Specialty Start Date End Date Scot Owen MD PCP - General Internal Medicine 01/23/1606/30/21 Lukas Bradford MD PCP - General Internal Medicine 07/01/21 08/10/21 Jan Palomino DO PCP - General Internal Medicine 08/11/21 11/16/23 Letitia Khalil MD [address] [place] [address] [place] [address] PCP - General Internal Medicine 11/17/23 06/21/24 [facility], Pcp [address] [place] [address] UrogynecologCasey [place] [address] PCP - General Internal Medicine 06/22/24 Lane Valdes MD Specialist Cardiovascular Disease 01/14/22 Beti Greenwood MD [address] [place] [address] UrogynecologCasey [place] [address] UROGYNECOLOGY 07/07/23 Juani Rhodes, ISAC [address] [facility] [place] [address] Cardiology 07/07/23 documented as of this encounter
--- OUTSIDE RECORDS SUMMARY | 2024-12-31 10:42 | XMS_ITS | Encounter Summary ---
Author Organization [facility] Address [address] [place] [address] Care Team Providers Care Grove Worker Name Role Phone Scot Owen MD Primary Care Provider Unavailable Lukas Bradford MD Primary Care Provider Jan Juárez DO Primary Care Provider UnavailLane Banerjee MD Unavailable Unavailable Beti Greenwood MD Unavailable Juani Rhodes NP Unavailable [phone] Letitia Khalil MD Primary Care Provider Un available [facility], Pcp Primary Care Provider Unavailabl e Encounter Details Date Type Department Care Team Description 11/09/2019 [facility] Medical Records [address] [place] [address] Abstract, Provider Social History Tobacco Use Types [...] on filedocumented in this encounter Care Teams Grove Worker Relationship Specialty Start Date End Date Scot Owen MD PCP - General Internal Medicine 01/23/1606/30/21 Lukas Bradford MD PCP - General Internal Medicine 07/01/21 08/10/21 Jan Palomino DO PCP - General Internal Medicine 08/11/21 11/16/23 Letitia Khalil MD [address] [place] [address] [place] [address] PCP - General Internal Medicine 11/17/23 06/21/24 [facility], Pcp [address] [place] [address] UrogynecologGeorgetown [place] [address] PCP - General Internal Medicine 06/22/24 Lane Valdes MD Specialist Cardiovascular Disease 01/14/22 Beti Greenwood MD [address] [place] [address] UrogynecologGeorgetown [place] [address] UROGYNECOLOGY 07/07/23 Juani Rhodes, ISAC 444 [facility] [place] [address] Cardiology 07/07/23 documented as of this encounter
--- OUTSIDE RECORDS SUMMARY | 2024-12-31 10:42 | XMS_ITS | Encounter Summary ---
Author Organization [facility] Address [address] [place] [address] Care Team Providers Care Ibm Websphere Commerce Consultant Name Role Phone AshliAlexel Abebe Primary Care Provider Kristina Gilbert MD Primary Care Provider UnavailScot Hansen MD Primary Care Provider Unavailable Lukas Bradford MD Primary Care Provider aJn Juárez DO Primary Care Provider Unavaila Lane Villalobos MD Unavailable Unavailable Beti Greenwood MD Unavailable Juani Rhodes NP Unavailable [phone] Letitia Khalil MD Primary Care Provider Un available [facility], Pcp Primary Care Provider Unavailabl e Encounter Details Date Type Department Care Team Description 06/18/2015 Pt. Referral Request [facility] Nataliya [address] [place] [address] Md Nataliya Social History Tobacco Use Types [...] any clubs o r organizations such as zoroastrian groups, unions, fraternal or athletic groups, or [...] on filedocumented in this encounter Care Teams Ibm Websphere Commerce Consultant Relationship Specialty Start Date End Date Samuel Cornelius PCP - General 08/29/05 12/24/15 Kristina Chatman MD PCP - General Internal Medicine 12/25/15 01/22/16 Scot Owen MD PCP - General Internal Medicine 01/23/1606/30/21 Lukas Bradford MD PCP - General Internal Medicine 07/01/21 08/10/21 Jan Palomino DO PCP - General Internal Medicine 08/11/21 11/16/23 Letitia Khalil MD [address] [place] [address] [place] [address] PCP - General Internal Medicine 11/17/23 06/21/24 [facility], [address] [place] [address] PCP - General Internal Medicine 06/22/24 Lane Valdes MD Specialist Cardiovascular Disease 01/14/22 Beti Greenwood MD 444 [facility] Urogynecology [facility] [place] [address] UROGYNECOLOGY 07/07/23 Juani Rhodes NP [address] [facility] [place] [address] Cardiology 07/07/23 documented as of this encounter
--- OUTSIDE RECORDS SUMMARY | 2024-12-31 10:42 | XMS_ITS | Encounter Summary ---
Author Organization [facility] Address [address] [place] [address] Care Team Providers Care Laboratory Tester Name Role Phone Samuel Cornelius Primary Care Provider Kristina Gilbert MD Primary Care Provider UnavailScot Hansen MD Primary Care Provider Unavailable Lukas Bradford MD Primary Care Provider Jan Juárez DO Primary Care Provider Unavaila Lane Villalobos MD Unavailable Unavailable Beti Greenwood MD Unavailable Juani Rhodes NP Unavailable [phone] Letitia Khalil MD Primary Care Provider Un available [facility], Pcp Primary Care Provider Unavailabl e Encounter Details Date Type Department Care Team Description 08/18/2015 [facility] Medical Records [address] [place] [id number] Abstract, Provider Social History Tobacco Use Types [...] often do you attend chur ch or mosque services? Never 07/12/2023 Do you belong to [...] on filedocumented in this encounter Care Teams Laboratory Tester Relationship Specialty Start Date End Date Samuel Cornelius PCP - General 08/29/05 12/24/15 Kristina Chatman MD PCP - General Internal Medicine 12/25/15 01/22/16 Scot Owen MD PCP - General Internal Medicine 01/23/1606/30/21 Lukas Bradford MD PCP - General Internal Medicine 07/01/21 08/10/21 Jan Palomino DO PCP - General Internal Medicine 08/11/21 11/16/23 Letitia Khalil MD [address] [facility] [place] [address] PCP - General Internal Medicine 11/17/23 06/21/24 [facility], Pcp [address] [facility] [place] [address] PCP - General Internal Medicine 06/22/24 Lane Valdes MD Specialist Cardiovascular Disease 01/14/22 Beti Greenwood MD [address] [facility] [place] [address] UROGYNECOLOGY 07/07/23 Juani Rhodes, ISAC [address] [facility] [place] [address] Cardiology 07/07/23 documented as of this encounter
--- OUTSIDE RECORDS SUMMARY | 2024-12-31 10:42 | XMS_ITS | Encounter Summary ---
Author Organization [facility] Address [address] [place] [address] Care Team Providers Care Transliterator Name Role Phone Scot Owen MD Primary Care Provider Unavailable Lukas Bradford MD Primary Care Provider Jan Juárez DO Primary Care Provider UnavailLane Banerjee MD Unavailable Unavailable Beti Greenwood MD Unavailable Juani Rhodes NP Unavailable [phone] Letitia Khalil MD Primary Care Provider Un available [facility], Pcp Primary Care Provider Unavailabl e Encounter Details Date Type Department Care Team Description 10/11/2019 [facility] Medical Records [address] [place] [address] Abstract, Provider Social History Tobacco Use Types [...] How often do you attend chur or temple services? Never 07/12/2023 Do you [...] on filedocumented in this encounter Care Teams Transliterator Relationship Specialty Start Date End Date Scot Owen MD PCP - General Internal Medicine 01/23/1606/30/21 Lukas Bradford MD PCP - General Internal Medicine 07/01/21 08/10/21 Jan Palomino DO PCP - General Internal Medicine 08/11/21 11/16/23 Letitia Khalil MD [address] [place] [address] [facility]ro[place] [address] PCP - General Internal Medicine 11/17/23 06/21/24 [facility], Pcp [address] [place] [address] UrogynecologSaint [place] [address] PCP - General Internal Medicine 06/22/24 Lane Valdes MD Specialist Cardiovascular Disease 01/14/22 Beti Greenwood MD [address] [place] [address] UrogynecologSaint [place] [address] UROGYNECOLOGY 07/07/23 Juani Rhodes, ISAC 444 [facility] [place] [address] Cardiology 07/07/23 documented as of this encounter
--- OUTSIDE RECORDS SUMMARY | 2024-12-31 10:42 | XMS_ITS | Encounter Summary ---
Author Organization [facility] Address [address] [place] [address] Care Team Providers Care Teacher Early Childhood Development Name Role Phone Jan Palomino DO Primary Care Provider UnavailBeti Garcia MD Unavailable Juani Rhodes NP Unavailable [phone] Letitia Khalil MD Primary Care Provider Un available [facility], Pcp Primary Care Provider Unavailabl e Encounter Details Date Type Department Care Team Description 10/07/2023 Errand Runner Report Medical Records [address] [place] [id number] [place] [address] Social History Tobacco Use Types Packs/Day Years [...] on filedocumented in this encounter Care Teams Teacher Early Childhood Development Relationship Specialty Start Date End Date Jan Palomino, PCP - General Internal Medicine 08/11/21 11/16/23 Letitia Khalil MD [address] [place] [address] [place] [address] PCP - General Internal Medicine 11/17/23 06/21/24 [facility], Pcp [address] [place] [address] PCP - General Internal Medicine 06/22/24 Beti Greenwood MD [address] [place], [place] [address] [address] UROGYNECOLOGY 07/07/23 Juani Rhodes NP 444 [facility] [address] Cardiology 07/07/23 documented as of this encounter
--- OUTSIDE RECORDS SUMMARY | 2024-12-31 10:42 | XMS_ITS | Encounter Summary ---
Author Organization [employer] [facility] Address [address] [place] [address] Care Team Providers Care Neurology Technologist Name Role Phone Scot Owen MD Primary Care Provider Unavailable Lukas Bradford MD Primary Care Provider Jan Juárez DO Primary Care Provider UnavailLane Banerjee MD Unavailable Unavailable Beti Greenwood MD Unavailable Juani Rhodes NP Unavailable [phone] Letitia Khalil MD Primary Care Provider Un available [facility], Pcp Primary Care Provider Unavailabl e Encounter Details Date Type Department Care Team Description 08/11/2020 Refill Adult Medicine - [place] [address] [place] [address] Magno Willoughby MD [address] [place] [address] Social History Tobacco Use Types Packs/Day Years [...] How often do you attend chur or taoism services? Never 07/12/2023 Do you belong to [...] on filedocumented in this encounter Care Teams Neurology Technologist Relationship Specialty Start Date End Date Scot Owen MD PCP - General Internal Medicine 01/23/1606/30/21 Lukas Bradford MD PCP - General Internal Medicine 07/01/21 08/10/21 Jan Palomino DO PCP - General Internal Medicine 08/11/21 11/16/23 Letitia Khalil MD [address] [place], [place] [address] [address] PCP - General Internal Medicine 11/17/23 06/21/24 [facility], Pcp [address] [place] [address] [place] [address] PCP - General Internal Medicine 06/22/24 Lane Valdes MD Specialist Cardiovascular Disease 01/14/22 Beti Greenwood MD [address] [place], [place] [address] [address] UROGYNECOLOGY 07/07/23 Juani Rhodes, HIDES SOAKER 444 [facility] [place] [address] Cardiology 07/07/23 documented as of this encounter
--- OUTSIDE RECORDS SUMMARY | 2024-12-31 10:42 | XMS_ITS | Encounter Summary ---
Author Organization [facility] Address [address] [place] [address] Care Team Providers Care Service Bar Cashier Name Role Phone Jan Palomino DO Primary Care Provider UnavailBeti Garcia MD Unavailable Juani Rhodes NP Unavailable [phone] Letitia Khalil MD Primary Care Provider Un available [facility], Pcp Primary Care Provider Unavailabl e Encounter Details Date Type Department Care Team Description 07/13/2023 Telephone Adult Medicine - [address] [address] Jan Palomino DO Social History Tobacco Use [...] often do you attend chur ch or hoahaoism services? Never 07/12/2023 Do you belong to [...] on filedocumented in this encounter Care Teams Service Bar Cashier Relationship Specialty Start Date End Date Jan Palomino DO PCP - General Internal Medicine 08/11/21 11/16/23 Letitia Khalil MD [address] [facility] [place] [address] PCP - General Internal Medicine 11/17/23 06/21/24 [facility], Pcp [address] [facility] [place] [address] PCP - General Internal Medicine 06/22/24 Beti Greenwood MD [address] [facility]rogyHighsmith[place] [address] UROGYNECOLOGY 07/07/23 Juani Rhodes, ISAC [address] [facility]ologSt[facility] [place] [address] Cardiology 07/07/23 documented as of this encounter
--- OUTSIDE RECORDS SUMMARY | 2024-12-31 10:42 | XMS_ITS | Encounter Summary ---
Author Organization [facility] Address [address] [place] [address] Care Team Providers Care Recreation Center Director Name Role Phone Scot Owen MD Primary Care Provider Unavailable Lukas Bradford MD Primary Care Provider Jan Juárez DO Primary Care Provider UnavailLane Banerjee MD Unavailable Unavailable Beti Greenwood MD Unavailable Juani Rhodes NP Unavailable [phone] Letitia Khalil MD Primary Care Provider Un available [facility], Pcp Primary Care Provider Unavailabl e Encounter Details Date Type Department Care Team Description 02/16/2016 Pt. Non Urgent Medical Question Adult Medicine - [address] [address] Samuel Cornelius Social History Tobacco Use Types [...] often do you attend chur ch or anglican services? Never 07/12/2023 Do you belong to any clubs o r organizations such as confucianism groups, unions, fraternal or athletic groups, or [...] Progress Notes * Selene Boyle L.P.N. - 02/16/2016 3:06 PM EDTFrom: Neha Wright To: Samuel Cornelius MD Sent: 02/16/2016 2:58 PM EDT Subject: Personal matter Dr. Cornelius, A few yrs back, my mother came to see you. You had discussed a personal issue with her about me.. I signed a privacy document. Now that issue is in my files. Your whole conversation with her. I'm having a hard time getting someone to take over my contract for narcotics. You went against policy talking to her. I had to send that paper work to my disability office. You had no right discussing m y personal life with her. I don't know what to do? Neha Worthy documented in this encounter Plan of Treatment Not on file documented as of this encounter Visit Diagnoses Not on filedocumented in this encounter Care Teams Recreation Center Director Relationship Specialty Start Date End Date Scot Owen MD PCP - General Internal Medicine 01/23/1606/30/21 Lukas Bradford MD PCP - General Internal Medicine 07/01/21 08/10/21 Jan Palomino DO PCP - General Internal Medicine 08/11/21 11/16/23 Letitia Khalil MD [address] [place] [address] [place] [address] PCP - General Internal Medicine 11/17/23 06/21/24 [facility], [address] [place] [address] PCP - General Internal Medicine 06/22/24 Lane Valdes MD Specialist Cardiovascular Disease 01/14/22 Beti Greenwood MD [facility] [place] [address] UROGYNECOLOGY 07/07/23 Juani Rhodes, ISAC [facility] [place] [address] Cardiology 07/07/23 documented as of this encounter
--- OUTSIDE RECORDS SUMMARY | 2024-12-31 10:42 | XMS_ITS | Encounter Summary ---
Author Organization [facility] Address [address] [place] [address] Care Team Providers Care Brim Shaper Name Role Phone Scot Owen MD Primary Care Provider Unavailable Lukas Bradford MD Primary Care Provider Jan Juárez DO Primary Care Provider UnavailLane Banerjee MD Unavailable Unavailable Beti Greenwood MD Unavailable Juani Rhodes NP Unavailable [phone] Letitia Khalil MD Primary Care Provider Un available [facility], Pcp Primary Care Provider Unavailabl e Encounter Details Date Type Department Care Team Description 04/24/2020 [facility] Medical Records [address] [place] [address] Abstract, Provider Social History Tobacco Use Types [...] How often do you attend chur or hoahaoism services? Never 07/12/2023 Do you [...] on filedocumented in this encounter Care Teams Brim Shaper Relationship Specialty Start Date End Date Scot Owen MD PCP - General Internal Medicine 01/23/1606/30/21 Lukas Bradford MD PCP - General Internal Medicine 07/01/21 08/10/21 Jan Palomino DO PCP - General Internal Medicine 08/11/21 11/16/23 Letitia Khalil MD [address] [place] [address] [facility] [place] [address] PCP - General Internal Medicine 11/17/23 06/21/24 [facility], Pcp [address] [place] [address] [facility]olog[facility] [place] [address] PCP - General Internal Medicine 06/22/24 Lane Valdes MD Specialist Cardiovascular Disease 01/14/22 Beti Greenwood MD [address] [place] [address] UrogynecologCaverna [place] [address] UROGYNECOLOGY 07/07/23 Juani Rhodes, ISAC [address] [facility] [place] [address] Cardiology 07/07/23 documented as of this encounter
--- OUTSIDE RECORDS SUMMARY | 2024-12-31 10:42 | XMS_ITS | Encounter Summary ---
Author Organization [facility] Address [address] [place] [address] Care Team Providers Care Literary Agent Name Role Phone Samuel Faust Primary Care Provider UnaKristina Herrera MD Primary Care Provider UnavailScot Hansen MD Primary Care Provider Unavailable Lukas Bradford MD Primary Care Provider Jan Juárez DO Primary Care Provider Unavaila Lane Villalobos MD Unavailable Unavailable Beti Greenwood MD Unavailable Juani Rhodes NP Unavailable [phone] Letitia Khalil MD Primary Care Provider Un available On [facility], Pcp Primary Care Provider Unavailabl e Encounter Details Date Type Department Care Team Description 04/05/2014 Pt. Non Urgent Medical Question Adult Medicine - [address] [address] Samuel Faust Social History Tobacco Use Types Packs/Day Years [...] Notes * Selene Boyle L.P.N. - 04/05/2014 3:50 PM EDTFrom: Barron Garcia To: Samuel Faust MD Sent: 04/05/2014 3:49 PM EDT Subject: back pain To: Barron Garcia From The Care Team Of: Dr. Tiffanie Lima Received: 04/05/2014 2:57 PM EDT Barron, I am not sure what to do. I have told Dr. Faust in the past that 4 pills a day he would be reasonable management. I am going to write a new prescription for you for 4 times a day. With a prescription you have now, if you take 4 pills a day, your current medication will last through April 19. Prescription I wrote for you to be filled on April 19 with directions 4 pills a day as needed. You c an black pickler any time. If Dr. Faust is not going to prescribe it, I will do it. That's all I isabel for you. Niels Lima ----- Message ----- From: BARRON GARCIA Sent: 04/05/2014 12:56 PM EDT To: Niels Lima, DO Subject: Back pain I was sending you an e-mail and something happened. I don't know if you received it or not? I'm still having a hard time sleeping. I wake up in pain. I was managing the pain on [address] faust told me to try taking 3. I would take the 4th pill at night and it helped me sleep. I have alot of pressure on my back. The percoset helps the pain but the pressure is still there. Dr faust told that it was up to dr lima to decide on whether i needed the 4th pill back. Please, i can't take the back and forth. This happened once before when i was going to [facility] pain management. Ihad an injection in my back and the hit my spine and the fluid started draining. My dr then told [place] did it so i have to go back to them They told me i had to go to my primary care dr. They kept going back and forth. Meanwhile i was in a lot of pain. I ended up going for an mri. 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 He also asked me if i had fibromyalgia. 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 I have constant ringing in my left ear.The pain is also in my left hip also. Could you please talk to dr dave and tell him to put me back on4 percosets?This would help me greatly. Thank you for all you have done to help me. Barron Garcia documented in this encounter Plan of Treatment Not on file documented as of this encounter Visit Diagnoses Not on filedocumented in this encounter Care Teams Literary Agent Relationship Specialty Start Date End Date Samuel Faust PCP - General 08/29/05 12/24/15 Kristina Chatman MD PCP - General Internal Medicine 12/25/15 01/22/16 Scot Owen MD PCP - General Internal Medicine 01/23/1606/30/21 Lukas Bradford MD PCP - General Internal Medicine 07/01/21 08/10/21 Jan Palomino DO PCP - General Internal Medicine 08/11/21 11/16/23 Letitia Khalil MD [address] [place] [address] [place] [address] PCP - General Internal Medicine 11/17/23 06/21/24 [facility], Pcp [address] [place] [address] [place] [address] PCP - General Internal Medicine 06/22/24 Lane Valdes MD Specialist Cardiovascular Disease 01/14/22 Beti Greenwood MD 4 [facility] [place] [address] UROGYNECOLOGY 07/07/23 Juani Rhodes, ISAC [address] [facility] [place] [address] Cardiology 07/07/23 documented as of this encounter
--- OUTSIDE RECORDS SUMMARY | 2024-12-31 10:42 | XMS_ITS | Encounter Summary ---
Author Organization [facility] Address [address] [place] [address] Care Team Providers Care Vamp Liner Name Role Phone Jan Palomino DO Primary Care Provider Unavaila Beti Soto MD Unavailable Juani Rhodes NP Unavailable [phone] Letitia Khalil MD Primary Care Provider Un available [facility], Pcp Primary Care Provider Unavailabl e Encounter Details Date Type Department Care Team Description 09/05/2023 Channel Manager Report Medical Records [address] [place] [address] Dilcia Meadows NP Social History Tobacco Use [...] often do you attend chur ch or gnosticist services? Never 07/12/2023 Do you [...] on filedocumented in this encounter Care Teams Vamp Liner Relationship Specialty Start Date End Date Jan Palomino, PCP - General Internal Medicine 08/11/21 11/16/23 Letitia Khalil MD [address] [place] [address] [place] [address] PCP - General Internal Medicine 11/17/23 06/21/24 [facility], Pcp [address] [place] [address] PCP - General Internal Medicine 06/22/24 Beti Greenwood MD [address] [place], [place] [address] [address] UROGYNECOLOGY 07/07/23 Juani Rhodes NP [address] [facility] [place] [address] Cardiology 07/07/23 documented as of this encounter
--- OUTSIDE RECORDS SUMMARY | 2024-12-31 10:42 | XMS_ITS | Encounter Summary ---
Author Organization [facility] Address [address] [place] [address] Care Team Providers Care Heliarc Welder Name Role Phone Samuel Cornelius Primary Care Provider Kristina Gilbert MD Primary Care Provider UnavailScot Hansen MD Primary Care Provider Unavailable Lukas Bradford MD Primary Care Provider Jan Juárez DO Primary Care Provider Unavaila Lane Villalobos MD Unavailable Unavailable Beti Greenwood MD Unavailable Juani Rhodes NP Unavailable [phone] Letitia Khalil MD Primary Care Provider Un available [facility], Pcp Primary Care Provider Unavailabl e Encounter Details Date Type Department Care Team Description 06/17/2015 Manager Pool Report Medical Records [address] [place] [address] Leanne Engel MD Social History Tobacco Use [...] on filedocumented in this encounter Care Teams Heliarc Welder Relationship Specialty Start Date End Date Samuel Cornelius PCP - General 08/29/05 12/24/15 Kristina Chatman MD PCP - General Internal Medicine 12/25/15 01/22/16 Scot Owen MD PCP - General Internal Medicine 01/23/1606/30/21 Lukas Bradford MD PCP - General Internal Medicine 07/01/21 08/10/21 Jan Palomino DO PCP - General Internal Medicine 08/11/21 11/16/23 Letitia Khalil MD [address] [place], [place] [address] [place] [address] PCP - General Internal Medicine 11/17/23 06/21/24 [facility], Pcp [address] [place], [place] [address] [address] PCP - General Internal Medicine 06/22/24 Lane Valdes MD Specialist Cardiovascular Disease 01/14/22 Beti Greenwood MD [address] [facility]cology [facility] [place] [address] UROGYNECOLOGY 07/07/23 Juani Rhodes NP [address] [facility] Urogynecology [facility] [place] [place] [place] [address] Cardiology 07/07/23 documented as of this encounter
--- OUTSIDE RECORDS SUMMARY | 2024-12-31 10:42 | XMS_ITS | Encounter Summary ---
[facility] Organization [facility] Address [address] [place] [address] Care Team Providers Care Concierge Name Role Phone Scot Owen MD Primary Care Provider Unavailable Lukas Bradford MD Primary Care Provider Jan Juárez DO Primary Care Provider UnavailLane Banerjee MD Unavailable Unavailable Beti Greenwood MD Unavailable Juani Rhodes NP Unavailable [phone] Letitia Khalil MD Primary Care Provider Un available [facility], Pcp Primary Care Provider Unavailabl e Encounter Details Date Type Department Care Team Description 05/11/2019 [facility] Medical Records [address] [place] [address] Abstract, Provider Social History Tobacco Use Types [...] How often do you attend chur or baptist services? Never 07/12/2023 Do you belong to any clubs o r organizations such as jewish groups, unions, fraternal or athletic groups, or [...] on filedocumented in this encounter Care Teams Concierge Relationship Specialty Start Date End Date Scot Owen MD PCP - General Internal Medicine 01/23/1606/30/21 Lukas Bradford MD PCP - General Internal Medicine 07/01/21 08/10/21 Jan Palomino DO PCP - General Internal Medicine 08/11/21 11/16/23 Letitia Khalil MD [address] [place] [address] [facility] [place] [address] PCP - General Internal Medicine 11/17/23 06/21/24 [facility], Pcp [address] [place] [address] [facility] [place] [address] PCP - General Internal Medicine 06/22/24 Lane Valdes MD Specialist Cardiovascular Disease 01/14/22 Beti Greenwood MD [address] [place] [address] [facility] [place] [address] UROGYNECOLOGY 07/07/23 Juani Rhodes, ISAC [address] [facility] [place] [address] Cardiology 07/07/23 documented as of this encounter
--- OUTSIDE RECORDS SUMMARY | 2024-12-31 10:43 | XMS_ITS | Encounter Summary ---
Author Organization [facility] Address [address] [place] [address] Care Team Providers Care Health Care Legal Assistant Name Role Phone Scot Owen MD Primary Care Provider Unavailable Lukas Bradford MD Primary Care Provider Jan Juárez DO Primary Care Provider UnavailLane Banerjee MD Unavailable Unavailable Beti Greenwood MD Unavailable Juani Rhodes NP Unavailable [phone] Letitia Khalil MD Primary Care Provider Un available [facility], Pcp Primary Care Provider Unavailabl e Encounter Details Date Type Department Care Team Description 11/02/2020 Refill Adult Medicine - [place] [address] [place] [address] Magno Willoughby MD [address] [place] [address] Social History Tobacco Use Types Packs/Day Years [...] How often do you attend chur or presybeterian services? Never 07/12/2023 Do you belong to [...] L.P.N. - 11/12/2020 4:49 PM EDT Patient scrap picker * Telephone Encounter - Sushma Crespo - 11/03/2020 12:15 PM EST Pt calling back and is looking to pick this up bsr sees this has been signed please place in pt scrap picker and call pt when complete pt call number is [phone] * Telephone Encounter - Katia Arroyo L.P.N. [...] in this encounter Care Teams Health Care Legal Assistant Relationship Specialty Start Date End Date Scot Owen MD PCP - General Internal Medicine 01/23/1606/30/21 Lukas Bradford MD PCP - General Internal Medicine 07/01/21 08/10/21 Jan Palomino DO PCP - General Internal Medicine 08/11/21 11/16/23 Letitia Khalil MD [address] [place] [address] [place] [address] PCP - General Internal Medicine 11/17/23 06/21/24 [facility], Pcp [address] [place] [address] [place] [address] PCP - General Internal Medicine 06/22/24 Lane Valdes MD Specialist Cardiovascular Disease 01/14/22 Beti Greenwood MD [address] [place] [address] [place] [address] UROGYNECOLOGY 07/07/23 Juani Rhodes NP [address] [facility] [place] [address] Cardiology 07/07/23 documented as of this encounter
--- OUTSIDE RECORDS SUMMARY | 2024-12-31 10:43 | XMS_ITS | Encounter Summary ---
Author Organization [facility] Address [address] [place] [address] Care Team Providers Care Grape Pruner Name Role Phone Scot Owen MD Primary Care Provider Unavailable Lukas Bradford MD Primary Care Provider Jan Juárez DO Primary Care Provider UnavailLane Banerjee MD Unavailable Unavailable Beti Greenwood MD Unavailable Juani Rhodes NP Unavailable [phone] Letitia Khalil MD Primary Care Provider Un available [facility], Pcp Primary Care Provider Unavailabl e Encounter Details Date Type Department Care Team Description 06/15/2017 [facility] Medical Records [address] [place] [address] Abstract, Provider Social History Tobacco Use Types [...] often do you attend chur ch or sikhism services? Never 07/12/2023 Do you [...] on filedocumented in this encounter Care Teams Grape Pruner Relationship Specialty Start Date End Date Scot Owen MD PCP - General Internal Medicine 01/23/1606/30/21 Lukas Bradford MD PCP - General Internal Medicine 07/01/21 08/10/21 Jan Palomino DO PCP - General Internal Medicine 08/11/21 11/16/23 Letitia Khalil MD [address] [place] [address] [place] [address] PCP - General Internal Medicine 11/17/23 06/21/24 [facility] Pcp [address] [place] [address] [place] [address] PCP - General Internal Medicine 06/22/24 Lane Valdes MD Specialist Cardiovascular Disease 01/14/22 Beti Greenwood MD [address] [place] [address] [place] [address] UROGYNECOLOGY 07/07/23 Juani Rhodes NP 444 [facility] [place] [address] Cardiology 07/07/23 documented as of this encounter
--- OUTSIDE RECORDS SUMMARY | 2024-12-31 10:43 | XMS_ITS | Encounter Summary ---
[facility] Address [address] [place] [address] Care Team Providers Care Palliative Nurse Name Role Phone Scot Owen MD Primary Care Provider Unavailable Lukas Bradford MD Primary Care Provider Jan Juárez DO Primary Care Provider UnavailLane Banerjee MD Unavailable Unavailable Beti Greenwood MD Unavailable Juani Rhodes NP Unavailable [phone] Letitia Khalil MD Primary Care Provider Un available [facility], Pcp Primary Care Provider Unavailabl e Encounter Details Date Type Department Care Team Description 11/08/2017 [facility] Medical Records [address] [place] [address] Abstract, Provider Social History Tobacco Use Types [...] on filedocumented in this encounter Care Teams Palliative Nurse Relationship Specialty Start Date End Date Scot Owen MD PCP - General Internal Medicine 01/23/1606/30/21 Lukas Bradford MD PCP - General Internal Medicine 07/01/21 08/10/21 Jan Palomino DO PCP - General Internal Medicine 08/11/21 11/16/23 Letitia Khalil MD [address] [place] [address] [place] [address] PCP - General Internal Medicine 11/17/23 06/21/24 [facility], Pcp [address] [place] [address] [facility]ologN[facility] [place] [address] PCP - General Internal Medicine 06/22/24 Lane Valdes MD Specialist Cardiovascular Disease 01/14/22 Beti Greenwood MD 4 [facility] [place] [address] UROGYNECOLOGY 07/07/23 Juani Rhodes, INSPECTOR MISSILE [address] [facility] [place] [address] Cardiology 07/07/23 documented as of this encounter
--- OUTSIDE RECORDS SUMMARY | 2024-12-31 10:43 | XMS_ITS | Encounter Summary ---
[facility] Address [address] [place] [address] Care Team Providers Care Rubber Down Name Role Phone Scot Owen MD Primary Care Provider Unavailable Lukas Bradford MD Primary Care Provider Jan Juárez DO Primary Care Provider UnavailLane Banerjee MD Unavailable Unavailable Beti Greenwood MD Unavailable Juani Rhodes NP Unavailable [phone] Letitia Khalil MD Primary Care Provider Un available [facility], Pcp Primary Care Provider Unavailabl e Encounter Details Date Type Department Care Team Description 03/03/2018 [facility] Medical Records [address] [place] [address] Abstract, Provider Social History Tobacco Use Types [...] any clubs o r organizations such as taoist groups, unions, fraternal or athletic groups, or [...] on filedocumented in this encounter Care Teams Rubber Down Relationship Specialty Start Date End Date Scot Owen MD PCP - General Internal Medicine 01/23/1606/30/21 Lukas Bradford MD PCP - General Internal Medicine 07/01/21 08/10/21 Jan Palomino DO PCP - General Internal Medicine 08/11/21 11/16/23 Letitia Khalil MD [address] [place] [address] [place] [address] PCP - General Internal Medicine 11/17/23 06/21/24 [facility], Pcp [address] [place] [address] [facility]ologP[facility] [place] [address] PCP - General Internal Medicine 06/22/24 Lane Valdes MD Specialist Cardiovascular Disease 01/14/22 Beti Greenwood MD [facility] [place] [address] UROGYNECOLOGY 07/07/23 Juani Rhodes, FERRYBOAT OPERATOR [address] [facility] [place] [address] Cardiology 07/07/23 documented as of this encounter
--- OUTSIDE RECORDS SUMMARY | 2024-12-31 10:43 | XMS_ITS | Clinical Summary ---
Author Organization [facility] [employer] Address [address] [facility] [place] [address] Phone Care Team Providers Care Loan Operations Specialist Name Role Phone Chyna Reina MD Primary Care Provider [phone] Allergies Active Allergy Reactions Criticality Noted Date Comments Gabapentin Hives Medium 04/14/2018 Hives/Urticaria Metaxalone Nausea And Vomiting Medium 05/26/2022 Methocarbamol Runny nose Low 11/23/2005 Runny Nose/Rhinitis Other 05/08/2024 Per pt, all antidepressants cause pt to develop sores Penicillins Nausea And Vomiting,Nausea Only Low 11/23/2005 Tolerated cephalosporin 05/24/23 Sertraline Rash Low 03/17/2017 Rash/Dermatitis Sulfa (Sulfonamide Antibiotics) Anaphylaxis High 05/08/2024 States nose clogged, difficulty swallowing Sulfacetamide Sodium Numbness 11/23/2005 Numbness, tingling or swelling of the lips, tongue or mouth Sulindac 06/09/2011 Medications oxyCODONE-acetami nophen (PERCOCET) 5-325 mg per tablet Take 1 tablet by mouth 4 (four) times a day. Active valACYclovir (VALTREX) 500 mg tablet Take 1 tablet (500 mg total) by mouth 1 (one) time each day. 04/18/20 23 Active dilTIAZem CD (CARDIZEM CD) 180 mg 24 hr capsule TAKE 1 CAPSULE BY MOUTH EVERY DAY 90 capsule 1 09/10/19 25 Active polyethylene glycol (MIRALAX) 17 gram packet Take 17 g by mouth 1 (one) time each day. 510 g 12/18/19 25 Active docusate sodium (COLACE) 100 mg capsule Take 1 capsule (100 mg total) by mouth 2 (two) times a day. 60 each 12/18/19 25 Active simethicone (MYLICON) 80 mg chewable tablet Chew 1 tablet (80 mg total) every 6 (six) hours if needed (gas pain / bloating). 10 tablet 12/18/19 Active oxyCODONE (ROXICODONE) 5 mg immediate release tabletIndications :acute post op pain Take 1 tablet (5 mg total) by mouth every 6 (six) hours if needed for severe pain. For acute postoperative pain Max Daily Amount: 20 mg 6 each 12/19/19 Active acetaminophen (TYLENOL) 500 mg tablet Take 2 tablets (1,000 mg total) by mouth every 8 (eight) hours for 7 days. 42 tablet 12/18/19 25 ibuprofen (ADVIL,MOTRIN) 800 mg tablet Take 1 tablet (800 mg total) by mouth every 8 (eight) hours if needed for mild pain for up to 10 days. 30 tablet 12/18/19 ondansetron ODT (ZOFRAN-ODT) 4 mg disintegrating tabletIndications :Post-operative nausea and vomiting Dissolve 1 tablet (4 mg total) on top of the tongue every 8 (eight) hours if needed for vomiting or nausea for up to 7 days. 10 each 12/18/19 25 025 oxyCODONE (ROXICODONE) 5 mg immediate release tabletIndications :acute post op pain Take 1 tablet (5 mg total) by mouth every 6 (six) hours if needed for severe pain. For acute postoperative pain Max Daily Amount: 20 mg 6 each 12/18/19 25 025 Discontin ued(Reord er) methenamine hippurate (HIPREX) 1 gram tablet Take 1 tablet (1 g total) by mouth 2 (two) times a day for 7 days. while you have the indwelling Briceño catheter in place to prevent infection. 14 each 12/19/19 25 025 Active Problems Problem Noted Date Diagnosed Date Preoperative examination 12/06/2024 Assessment & Plan (12/06/2024 1:32 PM EDT): Patient is a 69 y.o. female with pmhx SVT, anxiety/depression who presents for preoperative clearance for colpopexy with cystoscopy and anterior/posterior colporrhaphy with Dr. Greenwood on 12/17/24. Vital signs and physical exam wnl, she does note being more anxious than normal today hence why blood pressure is higher than normal for her. She follows with cardiology and has received cardiac clearance. METS>4 Will order CBC and BMP as requested by surgeon's office. She is medically optimized for upcoming procedure pending CBC and BMP wnl. Medicare annual wellness visit, subsequent 11/08 Assessment [...] of fever, nausea, or vomiting -Follow with uro-rn obgyn Anxiety 11/17/2023 Vaginal atrophy 03/30/2023 Overview (05/08/2024): Added automatically from request for surgery [id number] Mitral valve prolapse 02/25/2022 Overview (05/29/2024): Last Assessment & Plan: Patient reports that she has history of mitral valve prolapse however her most recent echocardiogram did not show any structural abnormalities. Cardiac function is normal. Assessment & Plan (10/30/2024 11:14 AM EST): Orders: ECG 12 lead SVT (supraventricular tachycardia) ([facility] V24) 02/23/2022 Overview (05/29/2024): Last Assessment & Plan: [...] is currently following with pain management at [facility] Diverticulitis of colon without hemorrhage 04/07 Degeneration of cervical intervertebral disc 02/2006 Overview (05/29/2024): excision/fusion c5/6- Dr. Contreras Depression with anxiety 02/02/2006 Overview (05/29/2024): Dr. Batista - formerly [facility] - stopped in 2011 - Samuel Cornelius [...] 08/19/2003 Overview (05/29/2024): Dr. Maykel Ramírez - [facility] 2003 MRI and bone scan Herpes simplex type II infection 11/17/1995 Overview (05/29/2024): Confirmed by culture 05/22/0711/09 - valacyclovir 500mg qd for suppression Resolved Problems Problem Noted Date Diagnosed Date Resolved Date Uterovaginal prolapse, unspecified 03/30/2023 12/17/2024 Overview (05/08/2024): Added automatically from request for surgery [id number] Encounters Date Type Department Care Team Description 12/20/2024 9:00 AM EDT Clinical Support Urogynecology - [address] [place] [address] Ange Doe, JANELLE Postoperative urinary retention (Primary Dx) 12/18/2024 Telephone Urogynecology [address] [place] [phone] Michelle Payne RN Post-op 12/17/2024 7:34 AM EDT Anesthesia Event [facility] Main OR [address] [place] [address] Anthony Roberson MD 12/17/2024 7:30 AM EDT - 12/17/2024 12:00 PM EDT Surgery [facility] Main OR [address] [place] [phone] Beti Greenwood MD DAVINCI COLPOPEXY [[id number] (CPT??)] 12/17/2024 5:39 AM EDT - 12/17/2024 3:56 PM EDT Hospital Encounter [facility] Main OR [address] [place] [phone] Beti Greenwood MD Post-op pain (Primary Dx); Post-operative nausea and vomiting Discharge Disposition: Home or Self Care 12/14/[address] [place] [address] Chyna Reina MD Medical Records 12/07/2024 9:15 AM EDT Consult Urogynecology - [address] [place] [phone] Beti Greenwood MD Female cystocele (Primary Dx); Vaginal vault prolapse, posthysterectomy; Rectocele 12/06/2024 1:30 PM EDT Consult Internal Medicine - [place] [address] [place] [phone] Chyna Reina MD Preoperative examination (Primary Dx) 11/22/[address] [place] [address] Ewa Claire MD Pre-operative Clearance 11/21/2024 9:54 AM EDT - 11/21/2024 11:59 PM EDT Hospital Encounter [facility] Xray - [place] [address] [place] [address] Post-menopause Discharge Disposition: Home or Self Care 11/21/2024 9:45 AM EDT - 11/21/2024 11:59 PM EDT Hospital Encounter [facility] Mammography - [place] [address] [place] [phone] Breast cancer screening by mammogram Discharge Disposition: Home or Self Care 11/21/2024 Telephone Urogynecology - [place] [address] [place], [place] [phone] Guera Quick [place] scheduled surgery 11/21/2024 Telephone Urogynecology - [place] [address] [place], [place] [phone] Guera Quick [place] schedule surgery 11/19/2024 Telephone Urogynecology - [address] [place] [address] Beti Greenwood MD surgery 11/09/2024 9:45 AM EDT Office Visit Urogynecology - [address] [place] [address] Beti Greenwood MD Female cystocele (Primary Dx); Rectocele; Vaginal vault prolapse, posthysterectomy 11/08/2024 9:00 AM EDT Office Visit Internal Medicine - [place] [address] [place] [address] Chyna Reina MD Medicare annual wellness visit, subsequent (Primary Dx); Breast cancer screening by mammogram; Post-menopause; Hyperlipidemia, unspecified hyperlipidemia type; Macrocytosis; SVT (supraventricular tachycardia) (CMS/[facility]ERLY [facility] V24) 10/30/2024 10:20 AM EST Office Visit [facility] Cardiology [address] [place] [address] Ewa Claire MD SVT (supraventricular tachycardia) (CMS/HCC V24) (Primary Dx); Mitral valve prolapse; Pure hypercholesterolemia 10/26/2024 2:30 PM EST Office Visit Internal Medicine - [place] [address] [place] [address] Chyna Reina MD Encounter to establish care (Primary Dx); BMI 25.0-25.9,adult; Encounter for screening for diabetes mellitus; Hyperlipidemia, unspecified hyperlipidemia type; Dysuria; SVT (supraventricular tachycardia) (CMS/HCC V24); Chronic pain syndrome from Last 3 Months Immunizations Name Administration Dates Next Due COVID-19 (Moderna/Spikevax) 12yo and older 04/14/2023 Influenza Quadravalent, 0.5m l (Fluad) 65yo and older 04/14/2023 Influenza Quadravalent, 0.5m l (Fluzone High-dose) 65yo and older 04/16/2024,05/05/2022,05/07/2021 Influenza Quadravalent, MDCK , 0.5ml, preservative free (Flucelvax) 6mo and older 05/02/2019,06/19/2018 Influenza Quadrivalent, 0.5m l, preservative free (Fluarix; FluLaval; Fluzone) ages 6mo and older (Afluria) 3yo and older 06/08/2017 Influenza trivalent, 0.5mL ( Fluzone High-dose) 65yo and older 04/16/2024,04/29/2021,05/13/2020 Influenza trivalent, with pr eservative (Fluzone; Afluria) 6mo and older 06/19/2018,04/19/2014,06/26/2013,05/24,06/09/2011 Influenza, Unspecified 04/14/2023,05/10/2022 Moderna (age 6mo & older) Bi valent, COVID-19, 0.5 mL or 0.25 mL dosage 04/14/2023,05/07/2022 Moderna Covid-19 Bivalent, O riginal + Ba.1 (Non-US Tradename Spikevax Bivalent) 05/07/2022 Pneumococcal conjugate 20 va lent (Prevnar 20, PCV 20) 2mo and older 07/12/2023,07/12/2023 Pneumococcal polysaccharide 23 valent (Pneumovax 23) 2yo and older 05/13/2020 Td Tetanus diptheria (Tdvax) 7yo and older 07/12/2023,12/27/2002 Td, Unspecified 12/27/2002 Tdap Tetanus diptheria acell ular pertussis (Boostrix; Adacel) 7yo and older 10/25/2012 Zoster Live 05/02/2015 Zoster recombinant (Shingrix ) 19yo and older 03/11/2021,12/23/2020,05/01/2015 Surgical History Surgery Date Site/Laterality Comments TUBAL LIGATION PROCEDURE:TUBAL LIGATION SHOULDER SURGERY Bilateral PROCEDURE:SHOULDER SURGERY;COMMENT:Rotator cuff repair HAND SURGERY Left PROCEDURE:HAND SURGERY;COMMENT:Carpal tunnel release COLONOSCOPY PROCEDURE:COLONOSCOPY UPPER GASTROINTESTINAL ENDOSCOPY PROCEDURE:UPPER GASTROINTESTINAL ENDOSCOPY RHINOPLASTY PROCEDURE:RHINOPLASTY;COMME NT:x2 LAPAROSCOPIC HYSTERECTOMY 05/24/2023 N/A PROCEDURE:LAPAROSCOPIC HYSTERECTOMY;COMMENT:Proced ure: LAPAROSCOPIC ASSISTED VAGINAL HYSTERECTOMY, BILATERAL SALPINGECTOMY; Surgeon: Beti Greenwood MD; Location: [facility] MAIN OPERATING ROOM; Service: Gynecology; Laterality: N/A; VAGINAL PROLAPSE REPAIR 05/24/2023 N/A PROCEDURE:VAGINAL PROLAPSE REPAIR;COMMENT:Procedure: VAGINAL COLPOPEXY (INTRAPERITONEAL APPROACH); Surgeon: Beti Greenwood MD; Location: [facility] MAIN OPERATING ROOM; Service: Gynecology; Laterality: N/A; COLPORRHAPHY 05/24/2023 N/A PROCEDURE:COLPORRHAPHY;COMM ENT:Procedure: POSTERIOR REPAIR; Surgeon: Beti Greenwood MD; Location: [facility] MAIN OPERATING ROOM; Service: Gynecology; Laterality: N/A; CYSTOSCOPY 05/24/2023 N/A PROCEDURE:CYSTOSCOPY;COMMEN T:Procedure: CYSTOSCOPY; Surgeon: Beti Greenwood MD; Location: [facility] MAIN OPERATING ROOM; Service: Gynecology; Laterality: N/A; OTHER SURGICAL HISTORY 05/24/2023 N/A PROCEDURE:TVT / TOT UTERINE SUSPENSION;COMMENT:Procedur e: PLACEMENT OF MESH MID-URETHRAL SLING; Surgeon: Beti Greenwood MD; Location: [facility] MAIN OPERATING ROOM; Service: Gynecology; Laterality: N/A; OTHER SURGICAL HISTORY 04/22/05 PROCEDURE: KS LAMOPLASTY CERVICAL DCMPRN CORD 2/> SEG RCNSTJ; COMMENT: Dr. Contreras OTHER SURGICAL HISTORY PROCEDURE: KS LIG/TRNSXJ FLP TUBE ABDL/VAG APPR UNI/BI TONSILLECTOMY ADENOIDECTOMY, BILATERAL MYRINGOTOMY AND TUBES PROCEDURE: KS TONSILLECTOMY & ADENOIDECTOMY <AGE 11 COLONOSCOPY 07/16/11 Matthewy PROCEDURE: HISTORICAL COLONOSCOPY; COMMENT: tics; repeat in five yrs CARPAL TUNNEL RELEASE 10/08/15 Left PROCEDURE: HISTORICAL CARPAL TUNNEL REL; COMMENT: Dr. Negrete NOSE SURGERY PROCEDURE: KS UNLISTED PROCEDURE NOSE; COMMENT: rhinoplasty Medical History [...] = 0.6 oz pur e alcohol) occassionally Interpersonal Safety Answer Date Record ed Physical Abuse 12/17/2024 Verbal Abuse 12/17/2024 Comments No Sex and Gender Information Value [...] Sign Reading Time Taken Comments Blood Pressure 128/68 12/17/2024 11:51 AM EDT Pulse 74 12/17/2024 11:51 AM EDT Temperature 36.9 ??C (98.5 ??F) 12/17/2024 11:51 AM E DT Respiratory Rate 18 12/17/2024 11:51 AM EDT Oxygen Saturation 95% 12/17/2024 11:51 AM EDT Inhaled Oxygen Concentration - - Weight 72.6 kg (160 lb) 12/17/2024 6:14 AM EDT Height 167.6 cm (5' 6 ) 12/17/2024 6:14 AM EDT Body Mass Index 25.82 12/17/2024 6:14 AM EDT Plan of Treatment Upcoming Encounters Date Type Department Care Team (Late st Contact Info) Description 01/02/2025 11:45 AM EDT Office Visit Urogynecology - [place] [address] [place] [phone] Kimberley Azul NP [address] [facility] [address] [place] [address] 02/01/2025 11:45 AM EDT Office Visit Urogynecology - [place] [address] [place] [address] Beti Greenwood MD [address] [place] [address] 03/04/2025 9:40 AM EDT Consult [facility] - [facility] [address] [place] [address] Juani Rhodes NP [address] [place] [address] [address] [place] [address] 05/13/2025 8:00 AM EDT Office Visit Internal Medicine - [place] [address] [place] [address] Chyna Reina MD [address] [place] [address] Health Maintenance Due Date Last Done Comments Social Influencers of Health Screening 08/07/2022 COVID-19 Vaccine ( season) 2024 05/16/2024, 04/14/2023, 04/14/2023, Additional history exists Depression Screening 11/08/2025 11/08/2024, 07/12/20 Medicare Annual Wellness Visit 11/08/2025 11/08/2024 Falls Risk Assessment 12/17/2025 12/17/2024 , 11/08/2024, 07/12/2023 Breast Cancer Screening 11/21/2026 11/22/19, 02/27/2019, 03/30/2017 Colorectal Cancer Screening: Colonoscopy 05/26/2027 05/26/2022 Cholesterol Screening (Lipid Panel) 11/06/2029 11/06/2024, 09/09/2021 RSV Immunization Adult Patients (1 - 1-dose 75+ series) 2029 DTaP,Tdap,and Td Vaccines (5 - Td or Tdap) 07/12/2033 07/12/2023, 10/25/2012, 12/27/2002, Additional history exists Osteoporosis Screening (Bone Density Screening) 11/21/2034 11/21/2024 Hepatitis C Screening Completed 08/02/2016 Zoster Vaccines Completed 03/11/2021, 04/02/2021, 05/02/2015, Additional history exists Pneumococcal Vaccine: 50+ Years Completed 07/12/2023, 07/12/2023, 05/13/2020 Influenza Vaccine Completed 04/16/2024, , 04/14/2023, Additional history exists HIB Vaccines Aged Out [...] age to complete this topic Meningococcal B Vaccine Aged Out No l onger eligible based on patient's age to complete this topic RSV Immunization Patients Under 20 months Aged Out No longer eligible based on patient's age to complete this topic Varicella Vaccines Aged Out No longer eligible based on patient's age to complete this topic Medical Devices Implanted Type Area Lens Grinding Machine Operator Device Identifier Shelf Expiration Date Model / Serial / Lot Mesh Y [employer] - Sn/A - [id number] Implanted:Qty: 1 on 12/17/2024 by Beti Greenwood MD at [facility] Surgical Mesh Sling Implants N/A: Urinary Bladder [employer] 02/16/2027 [id number] / N/A / [id number] System Gynecare Tvt Exact 3mm Troc Retro Pubic Urnry [facility] [id number] Implanted:Qty: 1 on 05/24/2023 by Beti Greenwood MD N/A: Vagina [facility] [employer] 12/27/2023 [id number] / / [id number] Procedures Procedure Name Priority Date/Time Associated Diagnosis Comments TH AN ENDOTRACHEAL(NO CHARGE) Routine 12/17/2024 7:56 AM EDT KS ANTERIOR COLPORRHAPHY REPR CYSTOCELE W/WO REPR URETHROCELE INCL CYSTO 12/17/2024 7:33 AM EDT Female cystocele Rectocele Vaginal vault prolapse, posthysterectomy Special Needs DaVinci,Skin to skin time 4 hours KS CYSTOURETHROSCOPY 12/17/2024 7:33 AM EDT Female cystocele Rectocele Vaginal vault prolapse, posthysterectomy Special Needs DaVinci,Skin to skin time 4 hours KS LAPAROSCOPY SURGICAL COLPOPEXY 12/17/2024 7:33 AM EDT Female cystocele Rectocele Vaginal vault prolapse, posthysterectomy Special Needs DaVinci,Skin to skin time 4 hours TYPE AND SCREEN STAT 12/17/2024 6:07 AM EDT CBC WITH AUTO DIFFERENTIAL Routine 12/06/2024 1:40 PM EDT Preoperative examination CBC AND DIFFERENTIAL Routine 12/06/2024 1:40 PM EDT Preoperative examination BASIC METABOLIC PANEL Routine 12/06/2024 1:40 PM EDT Preoperative examination BD BONE DENSITY DXA AXIAL SKELETON Routine [...] 10/30/2024 10:19 AM EST SVT (supraventricular tachycardia) (CMS/HCC V24) Mitral valve prolapse Pure hypercholesterolemia HM DEPRESSION SCREENING Routine 07/12/2023 HM FALLS RISK ASSESSMENT Routine 07/12/2023 COLONOSCOPY Routine 05/26/2022 HEPATITIS C SCREENING Routine 08/02/2016 from Last 3 Months or Most Recently Relevant to Health Maintenance Results * TH AN ENDOTRACHEAL(NO CHARGE) (12/17/2024 7:56 AM EDT) Anthony Slater MD - 12/17/2024 7:56 AM EDT Anthony Roberson MD ? 12/17/2024 ??7:57 AM General Information and Staff Patient location during procedure: OR Anesthesiologist: Anthony Roberson MD Performed: anesthesiologist Performed by: Anthony Roberson MD Authorized by: Anthony Roberson MD ?? Consent for Airway (if performed for an anesthetic, see related documentation for consents) Patient identity confirmed: hospital-assigned identification number Consent: No emergent situation. Verbal consent not obtained. Intubation Urgency: emergent Final Airway Details Successful airway: ETT Successful intubation technique: direct laryngoscopy Facilitating devices/methods: intubating stylet Endotracheal tube insertion site: oral Blade: Jerson Blade size: #3 ETT size (mm): 7.0 Placement verified by: capnometry Measured from: lips ETT to lips (cm): 21 Number of attempts at approach: 1 Number of other approaches attempted: 1Final airway type: endotracheal airway Indications and Patient Condition Indications for airway management: airway protection Spontaneous ventilation: present Sedation level: Yes Preoxygenated: yes Soft Tissue Damage: No Dentition Unchanged: Yes Patient position: neutral MILS maintained throughout Mask difficulty assessment: 1 - vent by mask us Anthony Roberson MD ANESTHESIA ORDERABLES Final Re sult * Type and screen (12/17/2024 6:07 AM EDT) ABO Group O 12/17/2024 7:11 AM EDT [facility] Rh Type Positive 12/17/2024 7:11 AM EDT [facility] Antibody Screen Negative 12/17/2024 7:11 AM EDT [facility] Blood Venous blood specimen / Unknown Venipuncture / Unknown 12/17/2024 6:07 AM EDT 12/17/2024 6:14 AM EDT us Beti Greenwood MD LAB BLOOD BANK TEST ORDERABLES Final Result [facility] [address] [place] [address], [place] [phone] * (ABNORMAL) CBC auto differential (12/06/2024 1:40 PM EDT) WBC 8.6 4.0 - 10.5 K/mcL LAB HEMETOLOGY METHOD 12/06/2024 8:17 PM EDT [facility] RBC 4.45 4.20 - 5.40 M/mcL LAB HEMETOLOGY METHOD 12/06/2024 8:17 PM EDT [facility] Hemoglobin 15.1 12.5 - 16.0 g/dL LAB HEMETOLOGY METHOD 12/06/2024 8:17 PM EDT [facility] Hematocrit 44.5 37.0 - 47.0 % LAB HEMETOLOGY METHOD 12/06/2024 8:17 PM EDT [facility] MCV 99.9 78.0 - 100.0 FL LAB HEMETOLOGY METHOD 12/06/2024 8:17 PM EDT [facility] MCH 34.0(H) 25.0 - 33.0 pcg LAB HEMETOLOGY METHOD 12/06/2024 8:17 PM EDT [facility] MCHC 34.0 32.0 - 36.0 g/dL LAB HEMETOLOGY METHOD 12/06/2024 8:17 PM EDT [facility] RDW 12.9 12.1 - 16.2 % LAB HEMETOLOGY METHOD 12/06/2024 8:17 PM EDT [facility] Platelets 401 150 - 450 K/mcL LAB HEMETOLOGY METHOD 12/06/2024 8:17 PM EDT [facility] MPV 7.2(L) 7.4 - 11.4 FL LAB HEMETOLOGY METHOD 12/06/2024 8:17 PM EDT [facility] Neutrophils Relative 61.3 44.0 - 74.0 % LAB HEMETOLOGY METHOD 12/06/2024 8:17 PM EDT [facility] Lymphocytes Relative 27.8 20.0 - 48.0 % LAB HEMETOLOGY METHOD 12/06/2024 8:17 PM EDT [facility] Monocytes Relative 8.7 2.0 - 12.0 % LAB HEMETOLOGY METHOD 12/06/2024 8:17 PM EDT [facility] Eosinophils Relative 1.7 0.0 - 6.0 % LAB HEMETOLOGY METHOD 12/06/2024 8:17 PM EDT [facility] Basophils Relative 0.5 0.0 - 2.0 % LAB HEMETOLOGY METHOD 12/06/2024 8:17 PM EDT [facility] Neutrophils Absolute 5.30 1.80 - 7.80 K/mcL LAB HEMETOLOGY METHOD 12/06/2024 8:17 PM EDT [facility] Lymphocytes Absolute 2.40 1.00 - 3.20 K/mcL LAB HEMETOLOGY METHOD 12/06/2024 8:17 PM EDT [facility] Monocytes Absolute 0.80 0.00 - 0.80 K/mcL LAB HEMETOLOGY METHOD 12/06/2024 8:17 PM EDT [facility] Eosinophils Absolute 0.10 0.00 - 0.50 K/mcL LAB HEMETOLOGY METHOD 12/06/2024 8:17 PM EDT [facility] Basophils Absolute 0.00 0.00 - 0.20 K/mcL LAB HEMETOLOGY METHOD 12/06/2024 8:17 PM EDT [facility] Blood Venous blood specimen / Unknown Venipuncture / Unknown 12/06/2024 1:40 PM EDT 12/06/2024 1:41 PM EDT us Chyna Reina MD LAB BLOOD ORDERABLES Rae l Result [facility] [address] [place] [address], [place] [phone] * Basic metabolic panel (12/06/2024 1:40 PM EDT) Sodium 141 135 - 145 mmol/L LAB CHEMISTRY METHOD 12/06/2024 8:10 PM EDT [facility] Potassium 4.2 3.5 - 5.1 mmol/L LAB CHEMISTRY METHOD 12/06/2024 8:10 PM EDT [facility] Chloride 103 98 - 107 mmol/L LAB CHEMISTRY METHOD 12/06/2024 8:10 PM EDT [facility] CO2 24 24 - 32 mmol/L LAB CHEMISTRY METHOD 12/06/2024 8:10 PM EDT [facility] Anion Gap 14 5 - 14 LAB CHEMISTRY METHOD 12/06/2024 8:10 PM EDT [facility] Glucose 105 70 - 199 mg/dL LAB CHEMISTRY METHOD 12/06/2024 8:10 PM EDT [facility] BUN 14 7 - 17 mg/dL LAB CHEMISTRY METHOD 12/06/2024 8:10 PM EDT [facility] Creatinine 0.70 0.50 - 1.00 mg/dL LAB CHEMISTRY METHOD 12/06/2024 8:10 PM EDT [facility] eGFR 93 >=60 mL/min/1. 73m2 LAB CHEMISTRY METHOD 12/06/2024 8:10 PM EDT [facility] Comment:Calculation based on the??Chronic Kidney Disease Epidemiology Collaboration (CKD-EPI) equation refit??without adjustment for race. BUN/Creatinine Ratio 20.0 12.0 - 20.0 LAB CHEMISTRY METHOD 12/06/2024 8:10 PM EDT [facility] Calcium 10.0 8.4 - 10.2 mg/dL LAB CHEMISTRY METHOD 12/06/2024 8:10 PM EDT [facility] Blood Venous blood specimen / Unknown Venipuncture / Unknown 12/06/2024 1:40 PM EDT 12/06/2024 1:40 PM EDT us Chyna Reina MD LAB BLOOD ORDERABLES Rae watson Result [facility] [address] [place] [address], [place] [phone] * BD Bone Density DXA Axial Skeleton [...] on 11/25/2024 5:53 PM. Workstation Name - [id number] -------- FINAL REPORT -------- Dictated By: Nicanor Lerner Dictated Date: 11/24/2024 19:24 ET Assigned Physician: Nicanor Lerner Reviewed and Electronically Signed By: Nicanor Lerner Signed Date: 11/25/2024 17:53 ET Workstation ID: [id number] Transcribed By: Self Edit Transcribed Date: 11/25/2024 16:26 ET Narrative 11/25/2024 5:53 PM EDT CLINICAL INDICATION / HISTORY: 69 years Female OTHER Post-menopause TECHNIQUE: Routine DXA scans of the lumbar spine and Left hip are acquired. CAMERA: GE ?? COMPARISON: None FINDINGS: Lumbar Spine L1-L4 [...] lumbar spine and Left hip areacquired. CAMERA: [employer] COMPARISON: None FINDINGS: Lumbar Spine L1-L4 bone [...] Lerner on 11/25/2024 5:53 PM.Workstation Name - [id number] -------- FINAL REPORT -------- Dictated By: Nicanor Lerner Dictated Date: 11/24/2024 19:24 ET Assigned Physician: Nicanor Lerner Reviewed and Electronically Signed By: Nicanor Lerner Signed Date: 11/25/2024 17:53 ET Workstation ID: [id number] Transcribed By: Self Edit Transcribed Date: 11/25/2024 [...] density per current federal guidelines. Exam Location: [facility], [address] [place] [address], [facility], . Report reviewed and signed by : Dr. Jessica Saldivar on 11/27/2024 1:23 PM. Workstation Name - [id number] -------- FINAL REPORT -------- Dictated By: Jessica Saldivar Dictated Date: 11/27/2024 13:18 ET Assigned Physician: Jessica Saldivar Reviewed and Electronically Signed By: Jessica Saldivar Signed Date: 11/27/2024 13:23 ET Workstation ID: [id number] Transcribed By: Self Edit Transcribed Date: 11/27/2024 [...] breastdensity per current federal guidelines. Exam Location: [address], [facility], . Report reviewed and signed by : Dr. Jessica Saldivar on 11/27/2024 1:23 PM.Workstation Name - [id number] -------- FINAL REPORT -------- Dictated By: Jessica Saldivar Dictated Date: 11/27/2024 13:18 ET Assigned Physician: Jessica Saldivar Reviewed and Electronically Signed By: Jessica Saldivar Signed Date: 11/27/2024 13:23 ET Workstation ID: [id number] Transcribed By: Self Edit Transcribed Date: 11/27/2024 13:18 ET us Chyna Reina MD IMG BI PROCEDURES Final R esult * (ABNORMAL) Lipid panel with reflex to direct LDL (11/06/2024 8:55 AM EDT) Cholesterol 255(H) 0 - 200 mg/dL LAB CHEMISTRY METHOD 11/06/2024 12:15 PM EDT [facility] Triglycerides 157(H) 0 - 150 mg/dL LAB CHEMISTRY METHOD 11/06/2024 12:15 PM EDT [facility] HDL 72 >=40 mg/dL LAB CHEMISTRY METHOD 11/06/2024 12:15 PM EDT [facility] LDL Calculated 152(H) 0 - 100 mg/dL LAB CHEMISTRY METHOD 11/06/2024 12:15 PM EDT [facility] VLDL Cholesterol Mert 31.4 mg/dL LAB CHEMISTRY METHOD 11/06/2024 12:15 PM EDT [facility] Non HDL Chol. (LDL+VLDL) 183(H) <145 mg/dL LAB CHEMISTRY METHOD 11/06/2024 12:15 PM EDT [facility] Chol/HDL Ratio 3.5 0.0 - 4.4 LAB CHEMISTRY METHOD 11/06/2024 12:15 PM EDT [facility] Blood Venous blood specimen / Unknown Venipuncture / Unknown 11/06/2024 8:55 AM EDT 11/06/2024 8:55 AM EDT Chyna Reina MD LAB BLOOD ORDERABLES Rae watson Result [facility] [address] [place] [address], * (ABNORMAL) Complete blood count (11/06/2024 8:55 AM EDT) WBC 5.8 4.8 - 10.8 K/[facility] LAB HEMETOLOGY METHOD 11/06/2024 12:22 PM EDT [facility] RBC 4.30 3.80 - 4.80 M/[facility] LAB HEMETOLOGY METHOD 11/06/2024 12:22 PM EDT [facility] Hemoglobin 14.6 11.5 - 16.0 g/dL LAB HEMETOLOGY METHOD 11/06/2024 12:22 PM [facility] Hematocrit 44.1 35.0 - 47.0 % LAB HEMETOLOGY METHOD 11/06/2024 12:22 PM [facility] MCV 101.6(H) 79.0 - 98.0 FL LAB HEMETOLOGY METHOD 11/06/2024 12:22 PM [facility] MCH 33.6(H) 27.0 - 32.0 pcg LAB HEMETOLOGY METHOD 11/06/2024 12:22 PM [facility] MCHC 33.1 32.0 - 37.0 g/dL LAB HEMETOLOGY METHOD 11/06/2024 12:22 PM [facility] RDW 12.6 11.0 - 15.0 % LAB HEMETOLOGY METHOD 11/06/2024 12:22 PM [facility] Platelets 383 130 - 400 K/mcL LAB HEMETOLOGY METHOD 11/06/2024 12:22 PM [facility] MPV 9.3 7.0 - 11.0 FL LAB HEMETOLOGY METHOD 11/06/2024 12:22 PM [facility] NRBC 0.0 <1.0 % LAB HEMETOLOGY METHOD 11/06/2024 12:22 PM [facility] NRBC Absolute 0.00 <0.10 K/mcL LAB HEMETOLOGY METHOD 11/06/2024 12:22 PM [facility] Blood Venous blood specimen / Unknown Venipuncture / Unknown 11/06/2024 8:55 AM EDT 11/06/2024 8:55 AM EDT us Chyna Opal Nuno MD LAB BLOOD ORDERABLES Rae l Result [facility] [address] [place] [address], [place] [phone] * Hemoglobin A1c (11/06/2024 8:55 AM EDT) Pathologist [facility] Hemoglobin A1C 5.5 <6.5 % LAB CHEMISTRY METHOD 11/06/2024 2:29 PM EDT [facility] Mean Bld Glu Estim. 111 mg/dL LAB CHEMISTRY METHOD 11/06/2024 2:29 PM EDT [facility] Blood Venous blood specimen / Unknown Venipuncture / Unknown 11/06/2024 8:55 AM EDT 11/06/2024 8:55 AM EDT Chyna Reina MD LAB BLOOD ORDERABLES Rae l Result Performing Organization Address City/[facility]/ZIP Co de Phone Number [facility] [address] [place] [address], [place] [phone] * (ABNORMAL) Comprehensive metabolic panel (11/06/2024 8:55 AM EDT) [facility] Sodium 138 133 - 145 mmol/L LAB CHEMISTRY METHOD 11/06/2024 12:51 PM EDT [facility] Potassium 4.3 3.5 - 5.5 mmol/L LAB CHEMISTRY METHOD 11/06/2024 12:51 PM EDT [facility] Chloride 107 96 - 110 mmol/L LAB CHEMISTRY METHOD 11/06/2024 12:51 PM EDT [facility] CO2 24 21 - 32 mmol/L LAB CHEMISTRY METHOD 11/06/2024 12:51 PM EDT [facility] Anion Gap 7 3 - 11 LAB CHEMISTRY METHOD 11/06/2024 12:51 PM EDT [facility] Glucose 101(H) 70 - 100 mg/dL LAB CHEMISTRY METHOD 11/06/2024 12:51 PM [facility] BUN 13 5 - 25 mg/dL LAB CHEMISTRY METHOD 11/06/2024 12:51 PM [facility] Creatinine 0.61 0.50 - 1.10 mg/dL LAB CHEMISTRY METHOD 11/06/2024 12:51 PM [facility] eGFR 97 >=60 mL/min/1. 73m2 LAB CHEMISTRY METHOD 11/06/2024 12:51 PM [facility] Comment:Calculation based on the??Chronic Kidney Disease Epidemiology Collaboration (CKD-EPI) equation refit??without adjustment for race. BUN/Creatinine Ratio 21.3 LAB CHEMISTRY METHOD 11/06/2024 12:51 PM [facility] Calcium 9.6 8.5 - 10.5 mg/dL LAB CHEMISTRY METHOD 11/06/2024 12:51 PM [facility] AST (SGOT) 18 10 - 42 unit/L LAB CHEMISTRY METHOD 11/06/2024 12:51 PM [facility] ALT (SGPT) 24 10 - 60 unit/L LAB CHEMISTRY METHOD 11/06/2024 12:51 PM [facility] Alkaline Phosphatase 84 42 - 121 unit/L LAB CHEMISTRY METHOD 11/06/2024 12:51 PM [facility] Total Protein 7.1 6.0 - 8.0 g/dL LAB CHEMISTRY METHOD 11/06/2024 12:51 PM [facility] Albumin 4.2 3.2 - 5.0 g/dL LAB CHEMISTRY METHOD 11/06/2024 12:51 PM [facility] Total Bilirubin 0.6 0.0 - 1.4 mg/dL LAB CHEMISTRY METHOD 11/06/2024 12:51 PM [facility] Blood Venous blood specimen / Unknown Venipuncture / Unknown 11/06/2024 8:55 AM EDT 11/06/2024 8:55 AM EDT Chyna Reina MD LAB BLOOD ORDERABLES Rae l Result [facility] [address] [place] [address], [place] [phone] * ECG 12 lead (10/30/2024 10:19 AM EST) Pathologist [facility] Ventricular Rate ECG 78 BPM GEMUSE Atrial Rate 78 BPM GEMUSE P-R Interval 182 ms GEMUSE QRS Duration 68 ms GEMUSE Q-T Interval 372 ms GEMUSE QTc 424 ms GEMUSE P Wave [place] 72 degrees GEMUSE R [place] 30 degrees GEMUSE T [place] 36 degrees GEMUSE ECG Interpretation Normal sinus rhythm Normal ECG When compared with ECG of 20-JUL-2021 15:39, No significant change was found Confirmed by EWA CLAIRE ([id number]) on 10/30/2024 11:15:14 AM GEMUSE 10/30/2024 10:1 9 AM EST 10/30/2024 11:15 AM EST Ewa Claire MD ECG ORDERABLES Final Result GEMUSE * Falls Risk Assessment (07/12/2023) [facility] Falls Risk Assessment abstracted Historical Provider HEALTH MAINTENANCE Final Result * Depression Screening (07/12/2023) Pathologist [facility] Depression Screening abstracted Historical Provider HEALTH MAINTENANCE Final Result * Colonoscopy (05/26/2022) [facility] Colonoscopy no interpretation , abstracted Anatomical Region Laterality Modality Other Historical Provider HEALTH MAINTENANCE Final Result * Hepatitis C Screening (08/02/2016) Pathologist [facility] Hepatitis C Screening abstracted Historical Provider HEALTH MAINTENANCE Final Result from Last 3 Months or Most Recently Relevant to Health Maintenance Insurance MEDICARE [facility] Advance Directives * Full Code - Default (Latest Code Status on File) Date Activated Date Inactivated Comments 12/17/2024 6:03 AM 12/17/2024 5:57 PM This is orde r is used when code status has not been discussed with the patient, or code status is otherwise unknown/unconfirmed To update the patient's code status, place a code status order. Do not modify or discontinue any currently active code status orders. Care Teams Loan Operations Specialist Relationship Specialty Start Date End Date Chyna Reina MD [address] [place] [address] PCP - General Family Medicine 10/26/24
--- OUTSIDE RECORDS SUMMARY | 2024-12-31 10:43 | XMS_ITS | Encounter Summary ---
Author Organization [facility] Address [address] [place] [address] Care Team Providers Care Foam Gun Operator Name Role Phone Lukas Bradford MD Primary Care Provider Jan Juárez DO Primary Care Provider Lane Macario MD Unavailable Unavailable Beti Greenwood MD Unavailable Juani Rhodes NP Unavailable [phone] Letitia Khalil MD Primary Care Provider Un available [facility], Pcp Primary Care Provider Unavailabl e Encounter Details Date Type Department Care Team Description 07/14/2021 Pt. Non Urgent Medic al Question Adult Medicine - [address] [address] Lisette Morales PA-C Social History Tobacco Use Types Packs/Day Years [...] any clubs o r organizations such as yazdanism groups, unions, fraternal or athletic groups, or [...] on filedocumented in this encounter Care Teams Foam Gun Operator Relationship Specialty Start Date End Date Lukas Bradford MD PCP - General Internal Medicine 07/01/21 08/10/21 Jan Palomino DO PCP - General Internal Medicine 08/11/21 11/16/23 Letitia Khalil MD [address] [facility] [place] [facility] [place] [address] PCP - General Internal Medicine 11/17/23 06/21/24 [facility] Pcp [address] [place] [address] [place] [address] PCP - General Internal Medicine 06/22/24 Lane Valdes MD Specialist Cardiovascular Disease 01/14/22 Beti Greenwood MD [address] [facility] [place] [address] UROGYNECOLOGY 07/07/23 Juani Rhodes NP [address] [place] [address] [place] [address] Cardiology 07/07/23 documented as of this encounter
--- OUTSIDE RECORDS SUMMARY | 2024-12-31 10:43 | XMS_ITS | Encounter Summary ---
[facility] Address [address] [place] [address] Care Team Providers Care Acct Exec Name Role Phone Scot Owen MD Primary Care Provider Unavailable Lukas Bradford MD Primary Care Provider Jan Juárez DO Primary Care Provider Unavaila Lane Villalobos MD Unavailable Unavailable Beti Greenwood MD Unavailable Juani Rhodes NP Unavailable [phone] Letitia Khalil MD Primary Care Provider Un available [facility], Pcp Primary Care Provider Unavailabl e Reason for Referral * EXTERNAL (Urgent) - Authorized/Booked Specialty Diagnoses / Procedures Referred By Yordan henderson Referred To Contact Plastic Surgery / Plastic surgery Procedures REFERRAL TO PLASTIC SURGERY Scot Owen MD [address] [place] [address] External Plastic Surg Referral ID Status Reason Start Date Expiration Date V isits Requested Visits Authorized SEE NOTE Authorized/B ooked 03/15/2016 06/16/2016 1 1 Reason for Visit * Reason Onset Date Comments REFERRAL 03/15/2016 Encounter Details Date Type Department Care Team Description 03/15/2016 Telephone Adult Medicine - [place] [address] [place] [address] Scot Owen MD REFERRAL Social History Tobacco [...] week 07/12/2023 How often do you attend [facility] or moravian services? Never 07/12/2023 Do you belong to [...] insurance must be obtained and registered in [facility] or their referral can not be processed. Is this a retro request? YES. If yes for what date of service do you need the retro referral? 02.04.16 Who is calling to request this referral? Sumi If the caller is not the patient, what is their name? N/A Ask the patient WHO referred them to this specialty: Patient saw Dr. Cornelius at [facility] for the problem and was told if symptoms did not resolve or worsen they would refer them to this specialty FIRST and LAST NAME of SPECIALIST PATIENT is seeing: Dr. Sidney Park NPI# [id number] What specialty is this? Plastic Surgery DIAGNOSIS [...] Is this visit:Initial Visit Address of Specialist: [address] [place] [address] Phone # of Specialist:[phone] Fax #: (if applicable):[phone] Does patient have an appointment scheduled?: YES Date of appointment- (including a retro-request): 02.04.16 Is this appointment related to: Surgery documented in this encounter Plan of Treatment Not on file documented as of this encounter Visit Diagnoses Not on filedocumented in this encounter Care Teams Acct Exec Relationship Specialty Start Date End Date Scot Owen MD PCP - General Internal Medicine 01/23/1606/30/21 Lukas Bradford MD PCP - General Internal Medicine 07/01/21 08/10/21 Jan Palomino DO PCP - General Internal Medicine 08/11/21 11/16/23 Letitia Khalil MD [address] [facility] [place] [address] PCP - General Internal Medicine 11/17/23 06/21/24 [facility], Pcp [address] [facility] [place] [address] PCP - General Internal Medicine 06/22/24 Lane Valdes MD Specialist Cardiovascular Disease 01/14/22 Beti Greenwood MD [address] [facility] [place] [address] UROGYNECOLOGY 07/07/23 Juani Rhodes NP [address] [facility] [place] [address] Cardiology 07/07/23 documented as of this encounter
--- OUTSIDE RECORDS SUMMARY | 2024-12-31 10:43 | XMS_ITS | Encounter Summary ---
Author Organization [employer] [facility] Address [address] [place] [address] Care Team Providers Care Electrical Maintenance Supervisor Name Role Phone Lukas Bradford MD Primary Care Provider Jan Juárez DO Primary Care Provider UnavailLane Banerjee MD Unavailable Unavailable Beti Greenwood MD Unavailable Juani Rhodes NP Unavailable [phone] Letitia Khalil MD Primary Care Provider Un available [facility], Pcp Primary Care Provider Unavailabl e Encounter Details Date Type Department Care Team Description 07/14/2021 Pt. Non Urgent Medic al Question Adult Medicine - [address] [address] Scot Owen MD Social History Tobacco Use [...] How often do you attend chur or sabianism services? Never 07/12/2023 Do you belong to [...] me. PLease tell me what doctor will picking machine operator helper my contract? documented in this encounter Plan of Treatment Not on file documented as of this encounter Visit Diagnoses Not on filedocumented in this encounter Care Teams Electrical Maintenance Supervisor Relationship Specialty Start Date End Date Lukas Bradford MD PCP - General Internal Medicine 07/01/21 08/10/21 Jan Palomino DO PCP - General Internal Medicine 08/11/21 11/16/23 Letitia Khalil MD [address] [facility] [place] [address] PCP - General Internal Medicine 11/17/23 06/21/24 [facility], Pcp 4 [facility] [address] PCP - General Internal Medicine 06/22/24 Lane Valdes MD Specialist Cardiovascular Disease 01/14/22 Beti Greenwood MD [address] [facility] [place] [address] UROGYNECOLOGY 07/07/23 Juani Rhodes NP [address] [facility] [place] [address] Cardiology 07/07/23 documented as of this encounter
--- OUTSIDE RECORDS SUMMARY | 2024-12-31 10:43 | XMS_ITS | Encounter Summary ---
Author Organization [facility] Address [address] [place] [address] Care Team Providers Care Hogshead Head Matcher Name Role Phone Kristina Chatman MD Primary Care Provider UnavailScot Hansen MD Primary Care Provider Unavailable Lukas Bradford MD Primary Care Provider Jan Juárez DO Primary Care Provider Unavaila Lane Villalobos MD Unavailable Unavailable Beti Greenwood MD Unavailable Juani Rhodes NP Unavailable Letitia Khalil MD Primary Care Provider Un available [facility], Pcp Primary Care Provider Unavailabl e Encounter Details Date Type Department Care Team Description 12/25/2015 Pt. Non Urgent Medical Question Adult Medicine - [address] [address] Samuel Cornelius Social History Tobacco Use Types [...] Progress Notes * Selene Boyle L.P.N. - 12/25/2015 11:12 AM EDTFrom: Neha Wright To: Samuel Cornelius MD Sent: 12/25/2015 11:11 AM EDT Subject: New I would like Dr. Chatman for my primary Dr. Dr. Cornelius suggested her for me. Thank you, Neha Wright documented in this encounter Plan of Treatment Not on file documented as of this encounter Visit Diagnoses Not on filedocumented in this encounter Care Teams Hogshead Head Matcher Relationship Specialty Start Date End Date Kristina Chatman MD PCP - General Internal Medicine 12/25/15 01/22/16 Scot Owen MD PCP - General Internal Medicine 01/23/1606/30/21 Lukas Bradford MD PCP - General Internal Medicine 07/01/21 08/10/21 Ahmed, Khadiga, DO PCP - General Internal Medicine 08/11/21 11/16/23 Letitia Khalil MD [address] [facility] [place] [address] PCP - General Internal Medicine 11/17/23 06/21/24 [facility], Pcp [address] [place] [address] [place] [address] PCP - General Internal Medicine 06/22/24 Lane Valdes MD Specialist Cardiovascular Disease 01/14/22 Beti Greenwood MD 4 [facility] [place] [address] UROGYNECOLOGY 07/07/23 Juani Rhodes, ISAC [address] [facility] [place] [address] Cardiology 07/07/23 documented as of this encounter
--- OUTSIDE RECORDS SUMMARY | 2024-12-31 10:43 | XMS_ITS | Encounter Summary ---
Author Organization [facility] Address [address] [place] [address] Care Team Providers Care Auctioneer Tobacco Name Role Phone Kristina Chatman MD Primary Care Provider UnavailScot Hansen MD Primary Care Provider Unavailable Lukas Bradford MD Primary Care Provider Jan Juárez DO Primary Care Provider Unavaila Lane Villalobos MD Unavailable Unavailable Beti Greenwood MD Unavailable Juani Rhodes NP Unavailable [phone] Letitia Khalil MD Primary Care Provider Un available [facility], Pcp Primary Care [facility] e Encounter Details Date Type Department Care Team Description 01/19/2016 Crime Scene Analyst Report Medical Records [address] [place] [id number] Ghada Toussaint Social History Tobacco Use Types [...] on filedocumented in this encounter Care Teams Auctioneer Tobacco Relationship Specialty Start Date End Date Krsitina Chatman MD PCP - General Internal Medicine 12/25/15 01/22/16 Scot Owen MD PCP - General Internal Medicine 01/23/1606/30/21 Lukas Bradford MD PCP - General Internal Medicine 07/01/21 08/10/21 Jan Palomino DO PCP - General Internal Medicine 08/11/21 11/16/23 Letitia Khalil MD [address] [place] [address] [place] [address] PCP - General Internal Medicine 11/17/23 06/21/24 [facility], Pcp [address] [place] [address] [place] [address] PCP - General Internal Medicine 06/22/24 Lane Valdes MD Specialist Cardiovascular Disease 01/14/22 Beti Greenwood MD [address] [place] [address] [place] [address] UROGYNECOLOGY 07/07/23 Juani Rhodes, ISAC [address] [facility] [place] [address] Cardiology 07/07/23 documented as of this encounter
--- OUTSIDE RECORDS SUMMARY | 2024-12-31 10:43 | XMS_ITS | Encounter Summary ---
[facility] Organization [facility] Address [address] [place] [address] Care Team Providers Care Music Supervisor Name Role Phone Scot Owen MD Primary Care Provider Unavailable Lukas Bradford MD Primary Care Provider Jan Juárez DO Primary Care Provider UnavailLane Banerjee MD Unavailable Unavailable Beti Greenwood MD Unavailable Juani Rhodes NP Unavailable [phone] Letitia Khalil MD Primary Care Provider Un available [facility], Pcp Primary Care Provider Unavailabl e Encounter Details Date Type Department Care Team Description 10/11/2020 Pt. Non Urgent Medic al Question Adult Medicine - [address] [address] Scot Owen MD Social History Tobacco Use [...] How often do you attend chur or anglican services? Never 07/12/2023 Do you [...] on filedocumented in this encounter Care Teams Music Supervisor Relationship Specialty Start Date End Date Scot Owen MD PCP - General Internal Medicine 01/23/1606/30/21 Lukas Bradford MD PCP - General Internal Medicine 07/01/21 08/10/21 Jan Palomino DO PCP - General Internal Medicine 08/11/21 11/16/23 Letitia Khalil MD [address] [place] [address] [place] [address] PCP - General Internal Medicine 11/17/23 06/21/24 [facility], [place] [address] [place] [address] [place] [address] PCP - General Internal Medicine 06/22/24 Lane Valdes MD Specialist Cardiovascular Disease 01/14/22 Beti Greenwood MD 4 [facility] [place] [address] UROGYNECOLOGY 07/07/23 Juani Rhodes NP 4 [facility] [place] [address] Cardiology 07/07/23 documented as of this encounter
--- OUTSIDE RECORDS SUMMARY | 2024-12-31 10:43 | XMS_ITS | Encounter Summary ---
Author Organization [facility] Address [address] [place] [address] Care Team Providers Care Etymology Professor Name Role Phone Lukas Bradford MD Primary Care Provider Jan Juárez DO Primary Care Provider Lane Macario MD Unavailable Unavailable Beti Greenwood MD Unavailable Juani Rhodes NP Unavailable Letitia Khalil MD Primary Care Provider Un available [facility], Pcp Primary Care Provider Unavailabl e Encounter Details Date Type Department Care Team Description 07/07/2021 Telephone Adult Medicine - [address] [address] Lukas Bradford MD Social History Tobacco Use [...] How often do you attend chur or anabaptist services? Never 07/12/2023 Do you belong to any clubs o r organizations such as catholic groups, unions, fraternal or athletic groups, [...] Notes * Telephone Encounter - Kimberley John - 07/07/2021 2:40 PM EST Called pt and left message regarding overdue testing for bone density documented in this encounter Plan of Treatment Not on file documented as of this encounter Visit Diagnoses Not on filedocumented in this encounter Care Teams Etymology Professor Relationship Specialty Start Date End Date Lukas Bradford MD PCP - General Internal Medicine 07/01/21 08/10/21 Jan Palomino DO PCP - General Internal Medicine 08/11/21 11/16/23 Letitia Khalil MD [address] [place] [address] [place] [address] PCP - General Internal Medicine 11/17/23 06/21/24 [facility], Pcp [address] [place], [place] [address] [place] [address] PCP - General Internal Medicine 06/22/24 Lane Valdes MD Specialist Cardiovascular Disease 01/14/22 Beti Greenwood MD [address] [place] [address] [facility] [place] [address] UROGYNECOLOGY 07/07/23 Juani Rhodes, BEATER OPERATOR [address] [facility] [place] [address] Cardiology 07/07/23 documented as of this encounter
--- OUTSIDE RECORDS SUMMARY | 2024-12-31 10:43 | XMS_ITS | Encounter Summary ---
Author Organization [facility] Address [address] [place] [address] Care Team Providers Care Core Carrier Name Role Phone Lukas Bradford MD Primary Care Provider Jan Juárez DO Primary Care Provider UnavailLane Banerjee MD Unavailable Unavailable Beti Greenwood MD Unavailable Juani Rhodes NP Unavailable [phone] Letitia Khalil MD Primary Care Provider Un available [facility], Pcp Primary Care Provider Unavailabl e Encounter Details Date Type Department Care Team Description 07/06/2021 Pt. Non Urgent Medic al Question Adult Medicine - [address] [address] Scot Owen MD Social History Tobacco Use [...] How often do you attend chur or pentecostal services? Never 07/12/2023 Do you belong to any clubs o r organizations such as worship groups, unions, fraternal or athletic groups, or [...] Notes * Telephone Encounter - Anna Kemp - 07/06/2021 1:35 PM ESTFrom: Neha Aguilarours To: Clovis Owen Sent: 07/06/2021 9:04 AM EST Subject: new doctor I am not switching to [place] [facility] .. I need to stay in [place].. I have been in [place] for [address] can't drive all the way [facility]. If it is until october and you can guarantee me it's only till october then i will only have to go once to [place]. I will pick up worker my prescription refill in [place] until then? I can't drive al l the way to [employer] to pick up worker a prescription. documented in this encounter Plan of Treatment Not on file documented as of this encounter Visit Diagnoses Not on filedocumented in this encounter Care Teams Core Carrier Relationship Specialty Start Date End Date Lukas Bradford MD PCP - General Internal Medicine 07/01/21 08/10/21 Jan Palomino DO PCP - General Internal Medicine 08/11/21 11/16/23 Letitia Khalil MD [address] [facility] [place] [address] PCP - General Internal Medicine 11/17/23 06/21/24 [facility], Pcp [address] [facility] [place] [address] PCP - General Internal Medicine 06/22/24 Lane Valdes MD Specialist Cardiovascular Disease 01/14/22 Beti Greenwood MD [address] [facility] [place] [address] UROGYNECOLOGY 07/07/23 Juani Rhodes, ISAC [address] [facility] [place] [address] Cardiology 07/07/23 documented as of this encounter
--- OUTSIDE RECORDS SUMMARY | 2024-12-31 10:43 | XMS_ITS | Encounter Summary ---
Author Organization [facility] Address [address] [place] [address] Care Team Providers Care Industrial Court Magistrate Name Role Phone Lukas Bradford MD Primary Care Provider Jan Juárez DO Primary Care Provider UnavailLane Banerjee MD Unavailable Unavailable Beti Greenwood MD Unavailable Juani Rhodes NP Unavailable [phone] Letitia Khalil MD Primary Care Provider Un available [facility], Pcp Primary Care Provider Unavailabl e Encounter Details Date Type Department Care Team Description 07/13/2021 Pt. Non Urgent Medic al Question Adult Medicine - [address] [address] Scot Owen MD Social History Tobacco Use [...] on filedocumented in this encounter Care Teams Industrial Court Magistrate Relationship Specialty Start Date End Date Lukas Bradford MD PCP - General Internal Medicine 07/01/21 08/10/21 Jan Palomino DO PCP - General Internal Medicine 08/11/21 11/16/23 Letitia Khalil MD [address] [place] [address] [place] [address] PCP - General Internal Medicine 11/17/23 06/21/24 [facility] Pcp [address] [place] [address] [place] [address] PCP - General Internal Medicine 06/22/24 Lane Valdes MD Specialist Cardiovascular Disease 01/14/22 Beti Greenwood MD [facility] [place] [address] UROGYNECOLOGY 07/07/23 Juani Rhodes NP [address] [facility] [place] [address] Cardiology 07/07/23 documented as of this encounter
--- OUTSIDE RECORDS SUMMARY | 2024-12-31 10:43 | XMS_ITS | Clinical Summary ---
Author Organization [facility] Address [address] [place] [address] Care Team Providers Care Lead Investigator Name Role Phone Pcp, No Primary Care [...] Family Unable to Define Medium 06/09/2011 Medications valACYclovir (VALTREX) 500 MG tablet Take 500 mg by mouth daily. 04/19/2023 Active oxyCODONE-aceta minophen (PERCOCET) 5-325 mg per tablet TAKE 1 TABLET BY MOUTH UP TO 5 TIMES DAILY NEEDED FOR SEVERE PAIN 04/18/2023 Active diltiazem (CARDIZEM CD) 180 MG 24 hr capsule Take 1 tablet by mouth daily. 06/11/2024 Active phenazopyridine (PYRIDIUM) 200 MG tabletIndicatio ns:Acute cystitis without hematuria Take 1 tablet (200 mg total) by mouth 3 (three) times a day as needed for bladder spasms. 6 tablet 09/27/2024 Active saccharomyces boulardii (FLORASTOR) 250 MG capsuleIndicati ons:Bacterial urinary tract infection Take 1 capsule (250 mg total) by mouth 2 (two) times a day. 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 Anxiety 11/17/2023 Uterovaginal prolapse, unspecified 03/30/2023 Overview (10/19/2024): Added automatically from request for surgery [id number] Vaginal atrophy 03/30/2023 Overview (10/19/2024): Added automatically from request for surgery [id number] Mitral valve prolapse 02/25/2022 Overview (10/19/2024): Last [...] Description 10/19/2024 8:15 AM EST Office Visit [facility] [address] [phone] Yonatan Jasmine MD Anderson, Kelsey E, PA-C Urinary tract infection symptoms 10/19/2024 Travel 10/11/2024 2:35 PM EST Office Visit [facility] [address] [phone] Uriah Holland MD Wiggins, Miriam K, PA-C Bacterial urinary tract infection (Primary Dx); Increased urinary frequency 10/11/2024 Refill [facility] [address] [phone] Yaa Carbajal PA-C Bacterial urinary tract infection 10/11/2024 Travel from Last 3 Months Social History Tobacco Use Types Packs/Day Years Used Date Smoking Tobacco: Never Passive Smoke Exposure: Never Smokeless Tobacco: Never Tobacco Cessation:Counseling Given: Not Answered Comments Unknown Sex and Gender Information Value [...] 3:01 PM EST Bacterial urinary tract infection from Last 3 Months Results * Urine Culture (10/19/2024 8:55 AM EST) Only the most recent of2 resultswithin the time period is included. Culture SEE NOTE [facility] Comment: ??CULTURE, URINE, ROUTINE ?Micro Number: ?[id number] ??Test Status: ? Final ??Specimen Source: ?? Urine ??Specimen Quality: ??Adequate ??Result: ?No Growth Microbiology 10/19/2024 8:55 AM EST 10/20/2024 11:52 PM EST Sandy Lorenzana PA-C LAB AMB MICRO ORDERABLES Final Result [facility] [address] [place] [id number] * (ABNORMAL) POCT Urinalysis Dipstick, Automated (10/19/2024 8:53 AM EST) Only the most recent of2 resultswithin the time period is included. Source, [...] Esterase, UA Small (+)(A) Negative Lot Number [id number] Siding Installer Pass Pass Urine 10/19/2024 8:53 AM EST Sandy Lorenzana PA-C POINT OF CARE TEST ORDERA BLES Final Result from Last 3 Months Insurance MEDICARE PART A & B BLUE [employer] [facility] - PPO Care Teams Lead Investigator Relationship Specialty Start Date End Date Pcp, No PCP - General General Medicine 09/27/24
--- OUTSIDE RECORDS SUMMARY | 2024-12-31 10:43 | XMS_ITS | Encounter Summary ---
Author Organization [facility] Address [address] [place] [address] Care Team Providers Care Ict Teacher Name Role Phone Scot Owen MD Primary Care Provider Unavailable Lukas Bradford MD Primary Care Provider Jan Juárez DO Primary Care Provider UnavailLane Banerjee MD Unavailable Unavailable Beti Greenwood MD Unavailable Juani Rhodes NP Unavailable [phone] Letitia Khalil MD Primary Care Provider Un available [facility], Pcp Primary Care Provider Unavailabl e Encounter Details Date Type Department Care Team Description 01/03/2021 Pt. Non Urgent Medic al Question Adult Medicine - [address] [address] Scot Owen MD Social History Tobacco Use [...] have Coronavirus / COVID-19? No / Unsure 12/25/2020 8:21 AM EDT documented as of this encounter Miscellaneous Notes * Telephone Encounter - Katia Arroyo L.P.N. - 01/05/2021 8:16 AM EDT From: Neha Wright To: Clovis Owen Sent: 01/03/2021 7:58 AM EDT Subject: test results for my echo cardiogram I can't find the test results for my echo cardiogram. Could you please let me know the test results. Thank you, Neha Wright P.S. I see where it says echo but there are no tests results i can read. documented in this encounter Plan of Treatment Not on file documented as of this encounter Visit Diagnoses Not on filedocumented in this encounter Care Teams Ict Teacher Relationship Specialty Start Date End Date Scot Owen MD PCP - General Internal Medicine 01/23/1606/30/21 Lukas Bradford MD PCP - General Internal Medicine 07/01/21 08/10/21 Jan Palomino DO PCP - General Internal Medicine 08/11/21 11/16/23 Letitia Khalil MD [address] [place] [address] [place] [address] PCP - General Internal Medicine 11/17/23 06/21/24 [facility], [address] [place] [address] PCP - General Internal Medicine 06/22/24 Lane Valdes MD Specialist Cardiovascular Disease 01/14/22 Beti Greenwood MD [address] [facility] [place] [address] UROGYNECOLOGY 07/07/23 Juani Rhodes, ISAC [address] [facility] [place] [address] Cardiology 07/07/23 documented as of this encounter
--- OUTSIDE RECORDS SUMMARY | 2024-12-31 10:43 | XMS_ITS | Encounter Summary ---
Author Organization [facility] Address [address] [place] [address] Care Team Providers Care Wet Mix Operator Name Role Phone Jan Palomino DO Primary Care Provider UnavailLane Banerjee MD Unavailable Unavailable Beti Greenwood MD Unavailable Juani Rhodes NP Unavailable [phone] Letitia Khalil MD Primary Care Provider Un available [facility], Pcp Primary Care Provider Unavailabl e Encounter Details Date Type Department Care Team Description 04/21/2022 Pt. Non Urgent Medic al Question Adult Medicine - [address] [address] Jan Palomino DO Social History Tobacco Use [...] How often do you attend chur or restoration services? Never 07/12/2023 Do you belong to any clubs o r organizations such as mandaeism groups, unions, fraternal or athletic groups, or [...] Telephone Encounter - Anna Kemp M.A. - 04/21/2022 1:17 PM EDTFrom: Neha Aguilarours To: Jyoti Palomino Sent: 04/21/2022 1:12 PM EDT Subject: stomach pain I have been having bad stomach pain for about 2 weeks, I went in to [facility] emergency room..They did a cat scan and told me they aren't a doctor office and i have to follow up with my primarycare dr. He gave me a referral to a GI dr at [facility] and i called. They said the earliest appt was aug 26 I still haven't heard from the urology They keep telling me not to come into the emergency roomand to call my primary care I told them my primary care tells me to go to the emergency room.. I don't know what to do, documented in this encounter Plan of Treatment Not on file documented as of this encounter Visit Diagnoses Not on filedocumented in this encounter Care Teams Wet Mix Operator Relationship Specialty Start Date End Date Jan Palomino DO PCP - General Internal Medicine 08/11/21 11/16/23 Letitia Khalil MD [address] [place] [address] [place] [address] PCP - General Internal Medicine 11/17/23 06/21/24 [facility], [address] [place] [address] PCP - General Internal Medicine 06/22/24 Lane Valdes MD Specialist Cardiovascular Disease 01/14/22 Beti Greenwood MD [address] [facility] [place] [address] UROGYNECOLOGY 07/07/23 Juani Rhodes, ISAC [address] [facility] [place] [address] Cardiology 07/07/23 documented as of this encounter
--- OUTSIDE RECORDS SUMMARY | 2024-12-31 10:43 | XMS_ITS | Encounter Summary ---
Author Organization [facility] Address [address] [place] [address] Care Team Providers Care Hurricane Tracker Name Role Phone Samuel Cornelius Primary Care Provider Kristina Gilbert MD Primary Care Provider UnavailScot Hansen MD Primary Care Provider Unavailable Lukas Bradford MD Primary Care Provider Jan Juárez DO Primary Care Provider Unavaila Lane Villalobos MD Unavailable Unavailable Beti Greenwood MD Unavailable Juani Rhodes NP Unavailable [phone] Letitia Khalil MD Primary Care Provider Un available [facility], Pcp Primary Care Provider Unavailabl e Reason for Visit * Reason Comments E-prescribe Rx Request Encounter Details Date Type Department Care Team Description 11/06/2012 Refill Adult Medicine [address] [address] Samuel Cornelius E-prescribe Rx Request Social History [...] her PCP and potentially beput on a [facility] contract before I can refill the medication [...] DAY Patients current insurance carrier is: Payor: [facility] [employer] [employer]/HMO FFS Plan: [id number] BLUE [place] $20 Product Type:HMO [id number] documented in this encounter Plan of Treatment Not on file documented as of this encounter Visit Diagnoses Not on filedocumented in this encounter Care Teams Hurricane Tracker Relationship Specialty Start Date End Date Samuel Cornelius PCP - General 08/29/05 12/24/15 Kristina Chatman MD PCP - General Internal Medicine 12/25/15 01/22/16 Scot Owen MD PCP - General Internal Medicine 01/23/1606/30/21 Lukas Bradford MD PCP - General Internal Medicine 07/01/21 08/10/21 Jan Palomino DO PCP - General Internal Medicine 08/11/21 11/16/23 Letitia Khalil MD [address] [facility] [place] [address] PCP - General Internal Medicine 11/17/23 06/21/24 [facility], Pcp [address] [place] [address] [facility] [address] PCP - General Internal Medicine 06/22/24 Lane Valdes MD Specialist Cardiovascular Disease 01/14/22 Beti Greenwood MD [address] [facility] [place] [address] UROGYNECOLOGY 07/07/23 Juani Rhdoes, ISAC [address] [facility] [place] [address] Cardiology 07/07/23 documented as of this encounter
--- OUTSIDE RECORDS SUMMARY | 2024-12-31 10:43 | XMS_ITS | Clinical Summary ---
Author Organization [facility] Address [address] [place] [address] Care Team Providers Care Cloud Systems Administrator Name Role Phone Jan Palomino DO Primary Care Provider [phone] Allergies Active Allergy Reactions Criticality Noted Date [...] Overview: Added automatically from request for surgery [id number] Vaginal atrophy 03/30/2023 Overview: Added automatically from request for surgery [id number] Social History Tobacco Use Types Packs/Day Years [...] this topic Medical Devices Implanted Type Area Commercial Credit Specialist Device Identifier Shelf Expiration Date Model / Serial / Lot System Gynecare Tvt Exact 3mm Troc Retro Pubic Urnry Incont [facility] Hospital[facility] [id number] - [id number] Implanted:Qty: 1 on 05/24/2023 by Beti Greenwood MD at [facility] N/A: Vagina [facility] [employer] 12/27/2023 TVTRL / / [id number] Care Teams Cloud Systems Administrator Relationship Specialty Start Date End Date Jan Palomino DO [address] [facility] [place] [address] PCP - General Family Medicine 05/18/23
--- OUTSIDE RECORDS SUMMARY | 2024-12-31 10:43 | XMS_ITS | Encounter Summary ---
Author Organization [facility] Address [address] [place] [address] Care Team Providers Care Feed Miller Name Role Phone Scot Owen MD Primary Care Provider Unavailable Lukas Bradford MD Primary Care Provider Jan Juárez DO Primary Care Provider UnavailLane Banerjee MD Unavailable Unavailable Beti Greenwood MD Unavailable Juani Rhodes NP Unavailable [phone] Letitia Khalil MD Primary Care Provider Un available [facility], Pcp Primary Care Provider Unavailabl e Encounter Details Date Type Department Care Team Description 11/17/2020 [facility] Medical Records [address] [place] [address] Abstract, Provider Social History Tobacco Use Types [...] filedocumented in this encounter Care Teams Feed Miller Relationship Specialty Start Date End Date Scot Owen MD PCP - General Internal Medicine 01/23/1606/30/21 Lukas Bradford MD PCP - General Internal Medicine 07/01/21 08/10/21 Jan Palomino DO PCP - General Internal Medicine 08/11/21 11/16/23 Letitia Khalil MD [address] [place] [address] [facility] [place] [address] PCP - General Internal Medicine 11/17/23 06/21/24 [facility], Pcp [address] [place] [address] [place] [address] PCP - General Internal Medicine 06/22/24 Lane Valdes MD Specialist Cardiovascular Disease 01/14/22 Beti Greenwood MD [address] [place] [address] [place] [address] UROGYNECOLOGY 07/07/23 Juani Rhodes, ISAC [address] [facility] [place] [address] Cardiology 07/07/23 documented as of this encounter
--- OUTSIDE RECORDS SUMMARY | 2024-12-31 10:43 | XMS_ITS | Encounter Summary ---
Author Organization [facility] Address [address] [place] [address] Care Team Providers Care Quill Machine Operator Name Role Phone Scot Owen MD Primary Care Provider Unavailable Lukas Bradford MD Primary Care Provider Jan Juárez DO Primary Care Provider UnavailLane Banerjee MD Unavailable Unavailable Beti Greenwood MD Unavailable Juani Rhodes NP Unavailable [phone] Letitia Khalil MD Primary Care Provider Un available [facility], Pcp Primary Care Provider Unavailabl e Encounter Details Date Type Department Care Team Description 02/19/2016 Pt. Non Urgent Medic al Question Physiatry [address] [address] Niels Jackson DO Social History Tobacco Use [...] I sent my prescription refill to the [facility]. No one got back to me. I'm due tomorrow. Thank You, Neha Gonzales documented in this encounter Plan of Treatment Not on file documented as of this encounter Visit Diagnoses Not on filedocumented in this encounter Care Teams Quill Machine Operator Relationship Specialty Start Date End Date Scot Owen MD PCP - General Internal Medicine 01/23/1606/30/21 Lukas Bradford MD PCP - General Internal Medicine 07/01/21 08/10/21 Jan Palomino DO PCP - General Internal Medicine 08/11/21 11/16/23 Letitia Khalil MD [address] [place] [address] [place] [address] PCP - General Internal Medicine 11/17/23 06/21/24 [facility], Pcp [address] [facility]John [facility] [place] [address] PCP - General Internal Medicine 06/22/24 Lane Valdes MD Specialist Cardiovascular Disease 01/14/22 Beti Greenwood MD [facility] [place] [address] UROGYNECOLOGY 07/07/23 Juani Rhodes, ISAC [address] [facility] [place] [address] Cardiology 07/07/23 documented as of this encounter
--- OUTSIDE RECORDS SUMMARY | 2024-12-31 10:43 | XMS_ITS | Encounter Summary ---
Author Organization [facility] Address [address] [place] [address] Care Team Providers Care Teacher Visually Impaired Name Role Phone Scot Owen MD Primary Care Provider Unavailable Lukas Bradford MD Primary Care Provider Jan Juárez DO Primary Care Provider UnavailLane Banerjee MD Unavailable Unavailable Beti Greenwood MD Unavailable Juani Rhodes NP Unavailable [phone] Letitia Khalil MD Primary Care Provider Un available [facility], Pcp Primary Care Provider Unavailabl e Encounter Details Date Type Department Care Team Description 12/03/2020 [facility] Medical Records [address] [place] [address] Abstract, Provider Social History Tobacco Use Types [...] How often do you attend chur or confucianism services? Never 07/12/2023 Do you belong to [...] filedocumented in this encounter Care Teams Teacher Visually Impaired Relationship Specialty Start Date End Date Scot Owen MD PCP - General Internal Medicine 01/23/1606/30/21 Lukas Bradford MD PCP - General Internal Medicine 07/01/21 08/10/21 Jan Palomino DO PCP - General Internal Medicine 08/11/21 11/16/23 Letitia Khalil MD [address] [place] [address] [facility] [place] [address] PCP - General Internal Medicine 11/17/23 06/21/24 [facility], Pcp [address] [place] [address] [place] [address] PCP - General Internal Medicine 06/22/24 Lane Valdes MD Specialist Cardiovascular Disease 01/14/22 Beti Greenwood MD [address] [facility] [place] [address] UROGYNECOLOGY 07/07/23 Juani Rhodes NP [address] [facility] [place] [address] Cardiology 07/07/23 documented as of this encounter
--- OUTSIDE RECORDS SUMMARY | 2024-12-31 10:43 | XMS_ITS | Encounter Summary ---
Author Organization [facility] Address [address] [place] [address] Care Team Providers Care Corrugator Machine Operator Name Role Phone Samuel Cornelius Primary Care Provider Kristina Gilbert MD Primary Care Provider UnavailScot Hansen MD Primary Care Provider Unavailable Lukas Bradford MD Primary Care Provider Jan Juárez DO Primary Care Provider Unavaila Lane Villalobos MD Unavailable Unavailable Beti Greenwood MD Unavailable Juani Rhodes NP Unavailable [phone] Letitia Khalil MD Primary Care Provider Un available [facility], Pcp Primary Care Provider Unavailabl e Encounter Details Date Type Department Care Team Description 11/22/2012 Controlled Substance Plan Medical Records [address] [place] [address] Abstract, Provider Social History Tobacco Use Types [...] on filedocumented in this encounter Care Teams Corrugator Machine Operator Relationship Specialty Start Date End Date Samuel Cornelius PCP - General 08/29/05 12/24/15 Kristina Chatman MD PCP - General Internal Medicine 12/25/15 01/22/16 Scot Owen MD PCP - General Internal Medicine 01/23/1606/30/21 Lukas Bradford MD PCP - General Internal Medicine 07/01/21 08/10/21 Jan Palomino DO PCP - General Internal Medicine 08/11/21 11/16/23 Letitia Khalil MD [address] [place] [address] TYESHA [place] [address] PCP - General Internal Medicine 11/17/23 06/21/24 [facility], Pcp [address] [place] [address] TYESHA [place] [address] PCP - General Internal Medicine 06/22/24 Lane Valdes MD Specialist Cardiovascular Disease 01/14/22 Beti Greenwood MD 444 [facility] [place] [address] UROGYNECOLOGY 07/07/23 Juani Rhodes NP 444 [facility] [place] [address] Cardiology 07/07/23 documented as of this encounter
--- OUTSIDE RECORDS SUMMARY | 2024-12-31 10:43 | XMS_ITS | Encounter Summary ---
[facility] Organization [facility] Address [address] [place] [address] Care Team Providers Care Pipelaying Fitter Name Role Phone Lukas Bradford MD Primary [...] TO PAIN MANAGEMENT Scot Owen MD [address] [place] [address] External Pain Man Referral ID Status Reason Start Date Expiration Date V isits Requested Visits Authorized [id number] Authorized/B ooked 07/14/2021 10/21/2021 1 1 Encounter Details Date Type Department Care Team Description 07/14/2021 Pt. Non Urgent Medic al Question Adult Medicine - [place] [address] [place] [address] Evette Wade NP Social History Tobacco Use [...] week 07/12/2023 How often do you attend [facility] or yazdanism services? Never 07/12/2023 Do you [...] on filedocumented in this encounter Care Teams Pipelaying Fitter Relationship Specialty Start Date End Date Lukas Bradford MD PCP - General Internal Medicine 07/01/21 08/10/21 Jan Palomino DO PCP - General Internal Medicine 08/11/21 11/16/23 Letitia Khalil MD [address] [place] [address] [place] [address] PCP - General Internal Medicine 11/17/23 06/21/24 [facility] Pcp [address] [place] [address] [place] [address] PCP - General Internal Medicine 06/22/24 Lane Valdes MD Specialist Cardiovascular Disease 01/14/22 Beti Greenwood MD [address] [place] [address] UROGYNECOLOGY 07/07/23 Juani Rhodes NP 444 [facility] [place] [address] Cardiology 07/07/23 documented as of this encounter
--- OUTSIDE RECORDS SUMMARY | 2024-12-31 10:43 | XMS_ITS | Encounter Summary ---
[facility] Organization [facility] Address [address] [place] [address] Care Team Providers Care Aircraft Instrument Mechanic Name Role Phone Scot Owen MD Primary Care Provider Unavailable Lukas Bradford MD Primary Care Provider Jan Juárez DO Primary Care Provider UnavailLane Banerjee MD Unavailable Unavailable Beti Greenwood MD Unavailable Juani Rhodes NP Unavailable [phone] Letitia Khalil MD Primary Care Provider Un available [facility], Pcp Primary Care Provider Unavailabl e Encounter Details Date Type Department Care Team Description 05/11/2017 [facility] Medical Records [address] [place] [address] Abstract, Provider Social History Tobacco Use Types [...] often do you attend chur ch or presybeterian services? Never 07/12/2023 Do you [...] in this encounter Care Teams Aircraft Instrument Mechanic Relationship Specialty Start Date End Date Scot Owen MD PCP - General Internal Medicine 01/23/1606/30/21 Lukas Bradford MD PCP - General Internal Medicine 07/01/21 08/10/21 Jan Palomino DO PCP - General Internal Medicine 08/11/21 11/16/23 Letitia Khalil MD [address] [place] [address] [place] [address] PCP - General Internal Medicine 11/17/23 06/21/24 [facility] Pcp [address] [place] [address] [place] [address] PCP - General Internal Medicine 06/22/24 Lane Valdes MD Specialist Cardiovascular Disease 01/14/22 Beti Greenwood MD [address] [place] [address] [place] [address] UROGYNECOLOGY 07/07/23 Juani Rhodes NP 444 [facility] [place] [address] Cardiology 07/07/23 documented as of this encounter
--- OUTSIDE RECORDS SUMMARY | 2024-12-31 10:44 | XMS_ITS | Encounter Summary ---
Author Organization [facility] Address [address] [place] [address] Care Team Providers Care Clinical Informatics Specialist Name Role Phone Scot Owen MD Primary Care Provider Unavailable Lukas Bradford MD Primary Care Provider Jan Juárez DO Primary Care Provider UnavailLane Banerjee MD Unavailable Unavailable Beti Greenwood MD Unavailable uJani Rhodes NP Unavailable [phone] Letitia Khalil MD Primary Care Provider Un available [facility], Pcp Primary Care Provider Unavailabl e Encounter Details Date Type Department Care Team Description 11/23/2016 Pt. Non Urgent Medic al Question Physiatry [address] [address] Niels Jackson DO Social History Tobacco Use [...] Progress Notes * Gege Hill M.A. - 11/24/2016 7:38 AM EDTFrom: Neha Aguilarours To: Niels Jackson DO Sent: 11/23/2016 5:19 PM EDT Subject: contract appointment When am i due for my medication appointment? documented in this encounter Plan of Treatment Not on file documented as of this encounter Visit Diagnoses Not on filedocumented in this encounter Care Teams Clinical Informatics Specialist Relationship Specialty Start Date End Date Scot Owen MD PCP - General Internal Medicine 01/23/1606/30/21 Lukas Bradford MD PCP - General Internal Medicine 07/01/21 08/10/21 Jan Palomino DO PCP - General Internal Medicine 08/11/21 11/16/23 Letitia Khalil MD [address] [place] [address] [place] [address] PCP - General Internal Medicine 11/17/23 06/21/24 [facility], Pcp [address] [place] [address] [place] [address] PCP - General Internal Medicine 06/22/24 Lane Valdes MD Specialist Cardiovascular Disease 01/14/22 Beti Greenwood MD 444 [facility] [place] [address] UROGYNECOLOGY 07/07/23 Juani Rhodes NP 444 [facility] [place] [address] Cardiology 07/07/23 documented as of this encounter
--- OUTSIDE RECORDS SUMMARY | 2024-12-31 10:44 | XMS_ITS | Encounter Summary ---
[facility] Address [address] [place] [address] Care Team Providers Care Quality Improvement Manager Name Role Phone Scot Owen MD Primary Care Provider Unavailable Lukas Bradford MD Primary Care Provider Jan Juárez DO Primary Care Provider UnavailLane Banerjee MD Unavailable Unavailable Beti Greenwood MD Unavailable Juani Rhodes NP Unavailable [phone] Letitia Khalil MD Primary Care Provider Un available [facility], Pcp Primary Care Provider Unavailabl e Encounter Details Date Type Department Care Team Description 01/18/2017 Refill Adult Medicine - [address] [address] Scot Owen MD Social History Tobacco Use [...] often do you attend chur ch or jewish services? Never 07/12/2023 Do you belong to any clubs o r organizations such as sabianism groups, unions, fraternal or athletic groups, or [...] Telephone Encounter - Selene Boyle L.P.N. - 01/19/2017 11:31 AM EDT Script written and is in patient pick-up. The patients' [facility] report was reviewed by Scot Faye MD today. * Telephone Encounter - Selene Boyle L.P.N. - 01/19/2017 9:35 AM EDT masspat to pcp Controlled substance contract and last issue date of medication reviewed. Patient is due for medication. Lab Results Component Value Date URINEOXYCOD POSITIVE 12/09/2016 URBENZO NEGATIVE 12/09/2016 URAMPHETAMIN NEGATIVE 12/09/2016 URMARIJUANA NEGATIVE 12/09/2016 UROPIATES NEGATIVE 12/09/2016 URBARBITUATE NEGATIVE 12/09/2016 URCOCAINE NEGATIVE 12/09/2016 HYDROCODONE Negative 12/09/2016 * Telephone Encounter - Selene Boyle L.P.N. - 01/19/2017 9:34 AM EDTFrom: Neha Wright To: Scot Owen MD Sent: 01/18/2017 5:57 PM EDT Subject: Medication Renewal Request Original authorizing provider: MD Neha Ackerman would like a refill of the following medications: oxycodone-acetaminophen (PERCOCET) 10-325 MG per tablet [Scot Owen MD] Preferred pharmacy: [id number] [address] Comment: documented in this encounter Plan of Treatment Not on file documented as of this encounter Visit Diagnoses Not on filedocumented in this encounter Care Teams Quality Improvement Manager Relationship Specialty Start Date End Date Scot Owen MD PCP - General Internal Medicine 01/23/1606/30/21 Lukas Bradford MD PCP - General Internal Medicine 07/01/21 08/10/21 Jan Palomino DO PCP - General Internal Medicine 08/11/21 11/16/23 Letitia Khalil MD [address] [place] [address] [place] [address] PCP - General Internal Medicine 11/17/23 06/21/24 [facility], Pcp [address] [place] [address] [place] [address] PCP - General Internal Medicine 06/22/24 Lane Valdes MD Specialist Cardiovascular Disease 01/14/22 Beti Greenwood MD [address] [place], [place] [address], [place] [address] UROGYNECOLOGY 07/07/23 Juani Rhodes, ISAC [address] [place] [address] Cardiology 07/07/23 documented as of this encounter
--- OUTSIDE RECORDS SUMMARY | 2024-12-31 10:44 | XMS_ITS | Encounter Summary ---
Author Organization [facility] Address [address] [place] [address] Care Team Providers Care Engine Service Repairer Name Role Phone Jan Palomino DO Primary Care Provider UnavailLane Banerjee MD Unavailable Unavailable Beti Greenwood MD Unavailable Juani Rhodes NP Unavailable [phone] Letitia Khalil MD Primary Care Provider Un available [facility], Pcp Primary Care Provider Unavailabl e Encounter Details Date Type Department Care Team Description 03/09/2022 Pt. Non Urgent Medic al Question Adult Medicine - [address] [address] Jan Palomino DO Social History Tobacco Use [...] How often do you attend chur or caodaism services? Never 07/12/2023 Do you [...] on filedocumented in this encounter Care Teams Engine Service Repairer Relationship Specialty Start Date End Date Jan Palomino DO PCP - General Internal Medicine 08/11/21 11/16/23 Letitia Khalil MD 444 [facility] [place] [address] PCP - General Internal Medicine 11/17/23 06/21/24 [facility], Pcp [address] [facility] [place] [address] PCP - General Internal Medicine 06/22/24 Lane Valdes MD Specialist Cardiovascular Disease 01/14/22 Beti Greenwood MD 444 [facility] [place] [address] UROGYNECOLOGY 07/07/23 Juani Rhodes NP 444 [facility] [place] [address] Cardiology 07/07/23 documented as of this encounter
--- OUTSIDE RECORDS SUMMARY | 2024-12-31 10:44 | XMS_ITS | Encounter Summary ---
Author [facility] Address [address] [place] [address] Care Team Providers Care Electric Tripper Machine Operator Name Role Phone Scot Owen MD Primary Care Provider Unavailable Lukas Bradford MD Primary Care Provider Jan Juárez DO Primary Care Provider UnavailLane Banerjee MD Unavailable Unavailable Beti Greenwood MD Unavailable Juani Rhodes NP Unavailable [phone] eLtitia Khalil MD Primary Care Provider Un available [facility], Pcp Primary Care Provider Unavailabl e Encounter Details Date Type Department Care Team Description 05/27/2016 Pt. Referral Request [address] [address] Md Nataliya Social History Tobacco Use Types [...] often do you attend chur ch or cheondoism services? Never 07/12/2023 Do you [...] on filedocumented in this encounter Care Teams Electric Tripper Machine Operator Relationship Specialty Start Date End Date Scot Owen MD PCP - General Internal Medicine 01/23/1606/30/21 Lukas Bradford MD PCP - General Internal Medicine 07/01/21 08/10/21 Jan Palomino DO PCP - General Internal Medicine 08/11/21 11/16/23 Letitia Khalil MD [address] [place] [address] [facility] [place] [place] [address] PCP - General Internal Medicine 11/17/23 06/21/24 [facility], Pcp [address] [place] [address] [facility] [place] [address] PCP - General Internal Medicine 06/22/24 Lane Valdes MD Specialist Cardiovascular Disease 01/14/22 Beti Greenwood MD 4 [facility] [place] [address] UROGYNECOLOGY 07/07/23 Juani Rhodes, OUTSIDE SALES ACCOUNT EXECUTIVE 444 [facility] [place] [address] Cardiology 07/07/23 documented as of this encounter
--- OUTSIDE RECORDS SUMMARY | 2024-12-31 10:44 | XMS_ITS | Encounter Summary ---
Author Organization [facility] Address [address] [place] [address] Care Team Providers Care Broach Setter Name Role Phone Scot Owen MD Primary Care Provider Unavailable Lukas Bradford MD Primary Care Provider Jan Juárez DO Primary Care Provider UnavailLane Banerjee MD Unavailable Unavailable Beti Greenwood MD Unavailable Juani Rhodes NP Unavailable [phone] Letitia Khalil MD Primary Care Provider Un available [facility], Pcp Primary Care Provider Unavailabl e Encounter Details Date Type Department Care Team Description 03/16/2017 [facility] Medical Records [address] [place] [address] Abstract, Provider Social History Tobacco Use Types [...] often do you attend chur ch or taoism services? Never 07/12/2023 Do you [...] on filedocumented in this encounter Care Teams Broach Setter Relationship Specialty Start Date End Date Scot Owen MD PCP - General Internal Medicine 01/23/1606/30/21 Lukas Bradford MD PCP - General Internal Medicine 07/01/21 08/10/21 Jan Palomino DO PCP - General Internal Medicine 08/11/21 11/16/23 Letitia Khalil MD [address] [place] [address] [place] [address] PCP - General Internal Medicine 11/17/23 06/21/24 [facility] Pcp [address] [place] [address] [place] [address] PCP - General Internal Medicine 06/22/24 Lane Valdes MD Specialist Cardiovascular Disease 01/14/22 Beti Greenwood MD [address] [place] [address] [place] [address] UROGYNECOLOGY 07/07/23 Juani Rhodes NP 444 [facility] [place] [address] Cardiology 07/07/23 documented as of this encounter
--- OUTSIDE RECORDS SUMMARY | 2024-12-31 10:44 | XMS_ITS | Encounter Summary ---
Author Organization [facility] Address [address] [place] [address] Care Team Providers Care Kettle Worker Name Role Phone Jan Palomino DO Primary Care Provider UnavailLane Banerjee MD Unavailable Unavailable Beti Greenwood MD Unavailable Juani Rhodes NP Unavailable [phone] Letitia Khalil MD Primary Care Provider Un available [facility], Pcp Primary Care Provider Unavailabl e Encounter Details Date Type Department Care Team Description 03/09/2022 Pt. Non Urgent Medic al Question Adult Medicine - [address] [address] Jan Palomino DO Social History Tobacco Use [...] How often do you attend chur or religion services? Never 07/12/2023 Do you [...] on filedocumented in this encounter Care Teams Kettle Worker Relationship Specialty Start Date End Date Jan Palomino DO PCP - General Internal Medicine 08/11/21 11/16/23 Letitia Khalil MD 4 [facility] [place] [address] PCP - General Internal Medicine 11/17/23 06/21/24 [facility], Pcp [address] [place] [address] [facility] [place] [address] PCP - General Internal Medicine 06/22/24 Lane Valdes MD Specialist Cardiovascular Disease 01/14/22 Beti Greenwood MD 4 [facility] [address] UROGYNECOLOGY 07/07/23 Juani Rhodes, ISAC 444 [facility] [place] [address] Cardiology 07/07/23 documented as of this encounter
--- OUTSIDE RECORDS SUMMARY | 2024-12-31 10:44 | XMS_ITS | Encounter Summary ---
Author Organization [facility] Address [address] [place] [address] Care Team Providers Care Weapons Designer Name Role Phone Jan Palomino DO Primary Care Provider UnavailLane Banerjee MD Unavailable Unavailable Beti Greenwood MD Unavailable Juani Rhodes NP Unavailable [phone] Letitia Khalil MD Primary Care Provider Un available [facility], Pcp Primary Care Provider Unavailabl e Encounter Details Date Type Department Care Team Description 01/07/2022 Pt. Non Urgent Medic al Question Adult Medicine - [address] [address] Jan Palomino DO Social History Tobacco Use [...] on filedocumented in this encounter Care Teams Weapons Designer Relationship Specialty Start Date End Date Jan Palomino DO PCP - General Internal Medicine 08/11/21 11/16/23 Letitia Khalil MD [address] [place] [address] [place] [address] PCP - General Internal Medicine 11/17/23 06/21/24 [facility], Pcp [address] [place] [address] [place] [address] PCP - General Internal Medicine 06/22/24 Lane Valdes MD Specialist Cardiovascular Disease 01/14/22 Beti Greenwood MD 444 [facility] [place] [address] UROGYNECOLOGY 07/07/23 Juani Rhodes NP 444 [facility] [place] [address] Cardiology 07/07/23 documented as of this encounter
--- OUTSIDE RECORDS SUMMARY | 2024-12-31 10:44 | XMS_ITS | Encounter Summary ---
Author Organization [facility] Address [address] [place] [address] Care Team Providers Care Drone Operator Name Role Phone Scot Owen MD Primary Care Provider Unavailable Lukas Bradford MD Primary Care Provider Jan Juárez DO Primary Care Provider UnavailLane Banerjee MD Unavailable Unavailable Beti Greenwood MD Unavailable Juani Rhodes NP Unavailable [phone] Letitia Khalil MD Primary Care Provider Un available [facility], Pcp Primary Care Provider Unavailabl e Encounter Details Date Type Department Care Team Description 09/29/2016 [facility] Medical Records [address] [place] [address] Abstract, Provider Social History Tobacco Use Types [...] on filedocumented in this encounter Care Teams Drone Operator Relationship Specialty Start Date End Date Scot Owen MD PCP - General Internal Medicine 01/23/1606/30/21 Lukas Bradford MD PCP - General Internal Medicine 07/01/21 08/10/21 Jan Palomino DO PCP - General Internal Medicine 08/11/21 11/16/23 Letitia Khalil MD [address] [place] [address] [place] [address] PCP - General Internal Medicine 11/17/23 06/21/24 [facility] Pcp [address] [place] [address] [place] [address] PCP - General Internal Medicine 06/22/24 Lane Valdes MD Specialist Cardiovascular Disease 01/14/22 Beti Greenwood MD [address] [place] [address] [place] [address] UROGYNECOLOGY 07/07/23 Juani Rhodes NP 444 [facility] [place] [address] Cardiology 07/07/23 documented as of this encounter
--- OUTSIDE RECORDS SUMMARY | 2024-12-31 10:44 | XMS_ITS | Encounter Summary ---
Author Organization [facility] Address [address] [place] [address] Care Team Providers Care Crown Ceramist Name Role Phone Scot Owen MD Primary Care Provider Unavailable Lukas Bradford MD Primary Care Provider Jan Juárez DO Primary Care Provider UnavailLane Banerjee MD Unavailable Unavailable Beti Greenwood MD Unavailable Juani Rhodes NP Unavailable [phone] Letitia Khalil MD Primary Care Provider Un available [facility], Pcp Primary Care Provider Unavailabl e Encounter Details Date Type Department Care Team Description 11/24/2016 [facility] Medical Records [address] [place] [address] Abstract, Provider Social History Tobacco Use Types [...] on filedocumented in this encounter Care Teams Crown Ceramist Relationship Specialty Start Date End Date Scot Owen MD PCP - General Internal Medicine 01/23/1606/30/21 Lukas Bradford MD PCP - General Internal Medicine 07/01/21 08/10/21 Jan Palomino DO PCP - General Internal Medicine 08/11/21 11/16/23 Letitia Khalil MD [address] [place] [address] [place] [address] PCP - General Internal Medicine 11/17/23 06/21/24 [facility] Pcp [address] [place] [address] [place] [address] PCP - General Internal Medicine 06/22/24 Lane Valdes MD Specialist Cardiovascular Disease 01/14/22 Beti Greenwood MD [address] [place] [address] [place] [address] UROGYNECOLOGY 07/07/23 Juani Rhodes NP 444 [facility] [place] [address] Cardiology 07/07/23 documented as of this encounter
--- OUTSIDE RECORDS SUMMARY | 2024-12-31 10:44 | XMS_ITS | Encounter Summary ---
Author Organization [facility] Address [address] [place] [address] Care Team Providers Care Staffing Analyst Name Role Phone Jan Palomino DO Primary Care Provider UnavailLane Banerjee MD Unavailable Unavailable Beti Greenwood MD Unavailable Juani Rhodes NP Unavailable [phone] Letitia Khalil MD Primary Care Provider Un available [facility], Pcp Primary Care Provider Unavailabl e Encounter Details Date Type Department Care Team Description 01/07/2022 Pt. Non Urgent Medic al Question Adult Medicine - [address] [address] Jan Palomino DO Social History Tobacco Use [...] on filedocumented in this encounter Care Teams Staffing Analyst Relationship Specialty Start Date End Date Jan Palomino, PCP - General Internal Medicine 08/11/21 11/16/23 Letitia Khalil MD [address] [place] [address] [place] [address] PCP - General Internal Medicine 11/17/23 06/21/24 [facility], [address] [place] [address] PCP - General Internal Medicine 06/22/24 Lane Valdes MD Specialist Cardiovascular Disease 01/14/22 Beti Greenwood MD [address] [place] [address] [place] [address] UROGYNECOLOGY 07/07/23 Juani Rhodes NP [address] [facility] [place] [address] Cardiology 07/07/23 documented as of this encounter
--- OUTSIDE RECORDS SUMMARY | 2024-12-31 10:44 | XMS_ITS | Encounter Summary ---
Author Organization [facility] Address [address] [place] [address] Care Team Providers Care Stock Plan Administrator Name Role Phone Beti Greenwood MD Unavailable Juani Rhodes NP Unavailable [phone] Letitia Khalil MD Primary Care Provider Un available Community, Pcp Primary Care Provider Unavailabl e Encounter Details Date Type Department Care Team Description 03/30/2024 Computer Systems Information Director Report Medical Records [address] [place] [address] Gumaro Vazquez MD Social History Tobacco Use [...] on filedocumented in this encounter Care Teams Stock Plan Administrator Relationship Specialty Start Date End Date Letitia Khalil MD [address] [facility] [place] [address] PCP - General Internal Medicine 11/17/23 06/21/24 [facility] [facility], Pcp [address] [facility] [place] [address] PCP - General Internal Medicine 06/22/24 Beti Greenwood MD [address] [place] [address] UROGYNECOLOGY 07/07/23 Juani Rhodes NP [address] [facility] [place] [address] Cardiology 07/07/23 documented as of this encounter
--- OUTSIDE RECORDS SUMMARY | 2024-12-31 10:44 | XMS_ITS | Encounter Summary ---
[facility] Address [address] [place] [address] Care Team Providers Care Roll Examiner Name Role Phone Scot Owen MD Primary Care Provider Unavailable Lukas Bradford MD Primary Care Provider Jan Juárez DO Primary Care Provider UnavailLane Banerjee MD Unavailable Unavailable Beti Greenwood MD Unavailable Juani Rhodes NP Unavailable [phone] Letitia Khalil MD Primary Care Provider Un available [facility], Pcp Primary Care Provider Unavailabl e Encounter Details Date Type Department Care Team Description 03/29/2017 PNO Controlled Substance Contract Medical Records [address] [place] [address] Abstract, Provider Social History Tobacco Use Types [...] filedocumented in this encounter Care Teams Roll Examiner Relationship Specialty Start Date End Date Scot Owen MD PCP - General Internal Medicine 01/23/1606/30/21 Lukas Bradford MD PCP - General Internal Medicine 07/01/21 08/10/21 Jan Palomino DO PCP - General Internal Medicine 08/11/21 11/16/23 Letitia Khalil MD [address] [place] [address] [facility] [address] PCP - General Internal Medicine 11/17/23 06/21/24 [facility], Pcp [address] [place] [address] [place] [address] PCP - General Internal Medicine 06/22/24 Lane Valdes MD Specialist Cardiovascular Disease 01/14/22 Beti Greenwood MD [address] [place] [address] [place] [address] UROGYNECOLOGY 07/07/23 Juani Rhodes NP 444 [facility] [place] [address] Cardiology 07/07/23 documented as of this encounter
--- OUTSIDE RECORDS SUMMARY | 2024-12-31 10:45 | XMS_ITS | Encounter Summary ---
Author Organization [facility] Address [address] [place] [address] Care Team Providers Care Automation Tender Name Role Phone Samuel Cornelius Primary Care Provider Kristina Gilbert MD Primary Care Provider UnavailScot Hansen MD Primary Care Provider Unavailable Lukas Bradford MD Primary Care Provider Jan Juárez DO Primary Care Provider Unavaila Lane Villalobos MD Unavailable Unavailable Beti Greenwood MD Unavailable Juani Rhodes NP Unavailable [phone] Letitia Khalil MD Primary Care Provider Un available [facility], Pcp Primary Care Provider Unavailabl e Encounter Details Date Type Department Care Team Description 02/28/2013 Controlled Substance Plan Medical Records [address] [place] [address] Abstract, Provider Social History Tobacco Use Types [...] on filedocumented in this encounter Care Teams Automation Tender Relationship Specialty Start Date End Date Samuel Cornelius PCP - General 08/29/05 12/24/15 Kristina Chatman MD PCP - General Internal Medicine 12/25/15 01/22/16 Scot Owen MD PCP - General Internal Medicine 01/23/1606/30/21 Lukas Bradford MD PCP - General Internal Medicine 07/01/21 08/10/21 Jan Palomino DO PCP - General Internal Medicine 08/11/21 11/16/23 Letitia Khalil MD [address] [place] [address] [place] [address] PCP - General Internal Medicine 11/17/23 06/21/24 [facility], Pcp [address] [place] [address] [place] [address] PCP - General Internal Medicine 06/22/24 Lane Valdes MD Specialist Cardiovascular Disease 01/14/22 Beti Greenwood MD [address] [facility] [place] [address] UROGYNECOLOGY 07/07/23 Ju[address] NP [address] [facility] [place] [address] Cardiology 07/07/23 documented as of this encounter
--- OUTSIDE RECORDS SUMMARY | 2024-12-31 10:45 | XMS_ITS | Encounter Summary ---
Author Organization [facility] Address [address] [place] [address] Care Team Providers Care Director Trial Name Role Phone Scot Owen MD Primary Care Provider Unavailable Lukas Bradford MD Primary Care Provider Jan Juárez DO Primary Care Provider UnavailLane Banerjee MD Unavailable Unavailable Beti Greenwood MD Unavailable Juani Rhodes NP Unavailable [phone] Letitia Khalil MD Primary Care Provider Un available [facility], Pcp Primary Care Provider Unavailabl e Encounter Details Date Type Department Care Team Description 06/21/2018 [facility] Medical Records [address] [place] [address] Abstract, Provider Social History Tobacco Use Types [...] filedocumented in this encounter Care Teams Director Trial Relationship Specialty Start Date End Date Scot Owen MD PCP - General Internal Medicine 01/23/1606/30/21 Lukas Bradford MD PCP - General Internal Medicine 07/01/21 08/10/21 Jan Palomino DO PCP - General Internal Medicine 08/11/21 11/16/23 Letitia Khalil MD [address] [place] [address] [place] [address] PCP - General Internal Medicine 11/17/23 06/21/24 [facility], [address] [facility] [place] [address] PCP - General Internal Medicine 06/22/24 Lane Valdes MD Specialist Cardiovascular Disease 01/14/22 Beti Greenwood MD [address] [place], [place] [address] [place] [address] UROGYNECOLOGY 07/07/23 Juani Rhodes, NATURALIST [address] [facility] [place] [address] Cardiology 07/07/23 documented as of this encounter
== END 2024-12-31 10:06 | disposition home or self-care (01) ==
LOC: HO.PMC 09:45
PROVIDERS: PCP Physician Assistant Medical; Visit Provider Nurse Practitioner Family
DX: Z79.891 Long term (current) use of opiate analgesic (principal); M47.816 Spondylosis without myelopathy or radiculopathy, lumbar region; G89.4 Chronic pain syndrome; M50.30 Other cervical disc degeneration, unspecified cervical region
CPT/HCPCS: 99214; G2211

== ENCOUNTER → 2024-12-31 09:44 | Outpatient (BNVA) | payer MEDICARE, SELFPAY | PROVIDERS: PCP Physician Assistant Medical; Visit Provider Nurse Practitioner Family | DX: Z51.81 Encounter for therapeutic drug level monitoring (principal); M47.816 Spondylosis without myelopathy or radiculopathy, lumbar region; M50.30 Other cervical disc degeneration, unspecified cervical region; G89.4 Chronic pain syndrome; Z79.891 Long term (current) use of opiate analgesic | CPT/HCPCS: 99212 ==

== ENCOUNTER 2025-01-28 08:14 | Outpatient (AMB) | payer MEDICARE, SELFPAY ==
--- OUTSIDE RECORDS SUMMARY | 2025-01-28 08:22 | XMS_ITS | Data Portability ---
Author Organization [facility] [address] Address [address] [place] [address] Assessment No assessment recorded. Plan of Treatment Reminders Order Date Submit Date Provider Last Modified By Organization Details Last Modified Time Details Appointments None recorded. Lab urinalysis, dipstick 2023 024 [facility], [address] [place], [address], 4 11:46:37 culture, urine 2023 024 RUDYARD [facility], [address] [place] [address], [place], [address], 4 18:06:08 Referral None recorded. Procedures None recorded. Surgeries None recorded. Imaging None recorded. Medication Orders Pyridium 100 mg tablet 2023 024 [facility]/Pharmacy #[id number], [address] [place], [address], 4 11:46:37 nitrofurant oin monohydrate /macrocryst als 100 mg capsule 2023 024 [id number], [address] [place], [address], 4 18:35:37 Patient TargetsNo targets recorded. Patient InstructionsNo instructions recorded. Reason for Referral None Reported. Results Created Date Observation Date Name Description Value Unit Range Abnormal Flag Note LastModifiedBy Organization Detail LastModifiedTime 02/12/20 24 02/12/2024 urina lysis , dipst ick Unknown Analyte Normal = light yellow Not Available [facility] [address] [place] [address], [phone], 02/12/2024 10:50:52 02/12/20 24 02/12/2024 urina lysis , dipst ick Unknown Analyte Dark Yellow Not Available [facility] [address] [place] [address], [phone], 02/12/2024 10:50:52 02/12/20 24 02/12/2024 urina lysis , dipst ick Unknown Analyte Normal = clear Not Available [facility] [address] [place] [address], [phone], 02/12/2024 10:50:52 02/12/20 24 02/12/2024 urina lysis , dipst ick Unknown Analyte Cloudy Not Available [facility] [address] [place] [address], [phone], 02/12/2024 10:50:52 02/12/20 24 02/12/2024 urina lysis , dipst ick Unknown Analyte Normal = negati ve Not Available [facility] [address] [place] [address], [phone], 02/12/2024 10:50:52 02/12/20 24 02/12/2024 urina lysis , dipst ick Unknown Analyte 100 mg/dL Not Available [facility] [address] [place] [address], [phone], 02/12/2024 10:50:52 02/12/20 24 02/12/2024 urina lysis , dipst ick Unknown Analyte Normal = Negati ve Not Available [facility] [address] [place] [address], [phone], 02/12/2024 10:50:52 02/12/20 24 02/12/2024 urina lysis , dipst ick Unknown Analyte Negati ve Not Available [facility] ie [facility] [address] [place] [address], [phone], 02/12/2024 10:50:52 02/12/20 24 02/12/2024 urina lysis , dipst ick Unknown Analyte Normal = Negati ve Not Available [facility] ie [facility] [address] [place] [address], [phone], 02/12/2024 10:50:52 02/12/20 24 02/12/2024 urina lysis , dipst ick Unknown Analyte 15 mg/dL Not Available [facility] [address] [place] [address], [address], 02/12/2024 10:50:52 02/12/20 24 02/12/2024 urina lysis , dipst ick Unknown Analyte Normal = 1.010, 1.015, 1.020 Not Available [facility] ie [address] [address] [place] [address], [phone], 02/12/2024 10:50:52 02/12/20 24 02/12/2024 urina lysis , dipst ick Unknown Analyte 1.010 Not Available [facility] [address] [place] [address], [phone], 02/12/2024 10:50:52 02/12/20 24 02/12/2024 urina lysis , dipst ick Unknown Analyte Normal = Negati ve Not Available [facility] ie [facility] [address] [place] [address], [phone], 02/12/2024 10:50:52 02/12/20 24 02/12/2024 urina lysis , dipst ick Unknown Analyte Trace- intact Not Available [facility] ie [facility] [address] [place] [address], [phone], 02/12/2024 10:50:52 02/12/20 24 02/12/2024 urina lysis , dipst ick Unknown Analyte Normal = 6.5, 7.0, 7.5, 8.0 Not Available [facility] [address] [place] [address], [phone], 02/12/2024 10:50:52 02/12/20 24 02/12/2024 urina lysis , dipst ick Unknown Analyte 5.0 Not Available [address], [address], 02/12/2024 10:50:52 02/12/20 24 02/12/2024 urina lysis , dipst ick Unknown Analyte Normal = Negati ve Not Available [address], [address], 02/12/2024 10:50:52 02/12/20 24 02/12/2024 urina lysis , dipst ick Unknown Analyte Trace Not Available [address], [address], 02/12/2024 10:50:52 02/12/20 24 02/12/2024 urina lysis , dipst ick Unknown Analyte Normal = 0.2, 1.0 Not Available [facility] [address] [place] [address], [phone], 02/12/2024 10:50:52 02/12/20 24 02/12/2024 urina lysis , dipst ick Unknown Analyte 1.0 E.U./d L Not Available [address], [address], 02/12/2024 10:50:52 02/12/20 24 02/12/2024 urina lysis , dipst ick Unknown Analyte Normal = Negati ve Not Available [facility] [address] [place], [address], 02/12/2024 10:50:52 02/12/20 24 02/12/2024 urina lysis , dipst ick Unknown Analyte Positi ve Not Available [facility] [address] [place] [address], [phone], 02/12/2024 10:50:52 02/12/20 24 02/12/2024 urina lysis , dipst ick Unknown Analyte Normal = Negati ve Not Available [facility] [address] [place] [address], [phone], 02/12/2024 10:50:52 02/12/20 24 02/12/2024 urina lysis , dipst ick Unknown Analyte Large Not Available [facility] [address] [place] [address], [phone], 02/12/2024 10:50:52 02/13/20 24 02/15/2024 URINE CULTU RE, ANDREINA NE urine culture, routine FINAL REPORT abnormal Not Available [facility] ([facility]) [address] [facility], [place], [address], 02/15/2024 14:08:26 02/13/20 24 02/15/2024 URINE CULTU [...] p A). (CLSI ) Not Available [facility] ([facility]) [address] [facility], [place], [address], 02/15/2024 14:08:26 Result Notes None recorded. Problems Name Problem SNOMED Code Status Onset Date Resolution Date Notes Provider Name and Address Organization Details Recorded Time Dysuria-fr equency syndrome 5632616 Active 024 Joan Hopper, ISAC [address] [place], [address] , [place] - [facility] 02/12/2024 11:44:23 Problem Notes None recorded. Medical Equipment None Reported. Allergies Allergen ID Allergen Name Allergen Category Reaction Reaction Severity Criticality Documentation Date Start Date Code Code System Note Provider Name and Address Organization Details Recorded Time 067444 Substance with sulfonami de structure and antibacte rial mechanism of action (substanc e) medicatio n Not available Not available Not available 02/12/2024 93720 8003 SNOMED Sheeba bills [place] - [facility] 4 10:48:43 922958 Bactrim medicatio n Not available Not available Not available 02/12/2024 66688 9 RxNorm Sheeba bills [place] - [facility] [...] 4 18 /min 167.64 cm 25.8 kg/m2 17965.7 8 g 97.9 [degF] 93 /min 97 % 97 % 147 mm[Hg] 84 mm[Hg] Sheebalisa Liebermanannie [place] - [facility] 10:51:36 Social History Question Answer Notes LastModified by Organizat ion Details LastModified Time Tobacco Smoking Status Former Smoker Sheeba Polo [facility] - [facility] 02/12/2024 10:50:09 When Did You Quit Smoking? 1-5yearssinc elastcigaret te Information not available 02/12/2024 Have You Had [...] Tobacco Screening? 02/12/2024 Information not available 02/12/2024 Have You Recently Traveled Abroad? No Information not available 02/12/2024 Sex: Unknown Functional Status Question Answer Note LastModified by Organizat ion Details LastModified Time Do you use any illicit or recreational drugs? No Information not available 02/12/2024 Do you or have you ever used any other forms of tobacco or nicotine? No Information not available 02/12/2024 What is your level of alcohol consumption? None Information not available 02/12/2024 Mental Status None recorded. Family History Relationship [...] SNOMED-CT Code Diagnosis ICD10 Code Diagnosis Note [id number] [address] [facility] [address] [place] [phone] 02/23/2020 08:37:39 02/23/2020 09:36:03 [id number] Joan HopperISAC [address] [address] 02/12/2024 10:37:17 02/12/2024 11:52:13 Dysuria-frequency syndrome 5394601 R30.0 The following are recommenda tions to [...] was prescribed . Thank you for using [facility] - please don't hesistate to call our office if you have any questions or concerns. Health Concerns Section Related Observation LastModified by Organization Detai ls LastModified Time None Recorded Concern Status LastModified by Organization Details LastModified Time None Recorded Advance Directives Directive None Recorded Payers Insurance Date Sequence Insurance Name Policy Number Policy Salazar Covered Member ID Salazar Member ID Guarantor Name 03/07/2024 2 [place] Neha Montilla 02/12/2024 1 [place] [employer] SERVICES Neha Montilla [id number] Neha Montilla Notes Date Note Type [...] little abdominal pain Joan Hopper NP [address] [place], [address], [place] - [facility] 02/14/2024 18:37:58 OBGyn Episode No OBEpisode recorded.
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
[2025-01-28 08:44] VITALS: BP 137/72; PULSE 91; O2SAT 95; BMI 25.8
== END 2025-01-28 08:50 | disposition home or self-care (01) ==
LOC: HO.PMC 08:15
PROVIDERS: PCP Physician Assistant Medical; Visit Provider Nurse Practitioner Family
DX: Z79.891 Long term (current) use of opiate analgesic (principal); M47.816 Spondylosis without myelopathy or radiculopathy, lumbar region; G89.4 Chronic pain syndrome; M50.30 Other cervical disc degeneration, unspecified cervical region
CPT/HCPCS: 99214; G2211

== ENCOUNTER → 2025-01-28 08:14 | Outpatient (BNVA) | payer MEDICARE, SELFPAY | PROVIDERS: PCP Physician Assistant Medical; Visit Provider Nurse Practitioner Family | DX: M47.816 Spondylosis without myelopathy or radiculopathy, lumbar region (principal); M50.30 Other cervical disc degeneration, unspecified cervical region; G89.4 Chronic pain syndrome; Z51.81 Encounter for therapeutic drug level monitoring; Z79.891 Long term (current) use of opiate analgesic | CPT/HCPCS: 99212 ==

== ENCOUNTER 2025-02-25 08:23 | Outpatient (AMB) | payer MEDICARE, SELFPAY ==
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
--- OUTSIDE RECORDS SUMMARY | 2025-02-25 08:29 | XMS_ITS | Encounter Summary ---
Author Organization [facility] Address [address] [place] [address] Care Team Providers Care Rand Cementer Name Role Phone Scot Owen MD Primary Care Provider Unavailable Lukas Bradford MD Primary Care Provider Jan Juárez DO Primary Care Provider UnavailLane Banerjee MD Unavailable Unavailable Beti Greenwood MD Unavailable Juani Rhodes NP Unavailable [phone] Letitia Khalil MD Primary Care Provider Un available [facility], Pcp Primary Care Provider Unavailabl e Encounter Details Date Type Department Care Team Description 12/04/2018 [facility] Medical Records [address] [place] [address] Abstract, Provider Social History Tobacco Use Types [...] on filedocumented in this encounter Care Teams Rand Cementer Relationship Specialty Start Date End Date Scot Owen MD PCP - General Internal Medicine 01/23/1606/30/21 Lukas Bradford MD PCP - General Internal Medicine 07/01/21 08/10/21 Jan Palomino DO PCP - General Internal Medicine 08/11/21 11/16/23 Letitia Khalil MD [address] [place] [address] [place] [address] PCP - General Internal Medicine 11/17/23 06/21/24 [facility], Pcp [address] [place] [address] [facility] [place] [address] PCP - General Internal Medicine 06/22/24 Lane Valdes MD Specialist Cardiovascular Disease 01/14/22 Beti Greenwood MD [address] [place] [address] [facility] [place] [address] UROGYNECOLOGY 07/07/23 Juani Rhodes, ISAC [address] [facility] [place] [address] Cardiology 07/07/23 documented as of this encounter
[2025-02-25 08:30] VITALS: BP 135/79; PULSE 93; O2SAT 100; BMI 25.8
== END 2025-02-25 08:41 | disposition home or self-care (01) ==
PROVIDERS: PCP Physician Assistant Medical; Visit Provider Nurse Practitioner Family
DX: Z79.891 Long term (current) use of opiate analgesic (principal); M47.816 Spondylosis without myelopathy or radiculopathy, lumbar region; G89.4 Chronic pain syndrome; M50.30 Other cervical disc degeneration, unspecified cervical region
CPT/HCPCS: 99214; G2211

== ENCOUNTER → 2025-02-25 08:23 | Outpatient (BNVA) | payer MEDICARE, SELFPAY | PROVIDERS: PCP Physician Assistant Medical; Visit Provider Nurse Practitioner Family | DX: Z51.81 Encounter for therapeutic drug level monitoring (principal); M47.816 Spondylosis without myelopathy or radiculopathy, lumbar region; M50.30 Other cervical disc degeneration, unspecified cervical region; G89.4 Chronic pain syndrome; Z79.891 Long term (current) use of opiate analgesic | CPT/HCPCS: 99212 ==

== ENCOUNTER 2025-03-25 08:15 | Outpatient (AMB) | payer MEDICARE, SELFPAY ==
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
[2025-03-25 08:23] VITALS: BP 171/83; PULSE 76; O2SAT 98; BMI 25.7
--- OUTSIDE RECORDS SUMMARY | 2025-03-25 08:23 | XMS_ITS | Encounter Summary ---
Author Organization [facility] Address [address] [place] [address] Care Team Providers Care Director Summer Sessions Name Role Phone Scot Owen MD Primary Care Provider Unavailable Lukas Bradford MD Primary Care Provider Jan Juárez DO Primary Care Provider UnavailLane Banerjee MD Unavailable Unavailable Beti Greenwood MD Unavailable Juani Rhodes NP Unavailable [phone] Letitia Khalil MD Primary Care Provider Un available [facility], Pcp Primary Care Provider Unavailabl e Encounter Details Date Type Department Care Team Description 12/04/2018 [facility] Medical Records [address] [place] [address] Abstract, Provider Social History Tobacco Use Types [...] filedocumented in this encounter Care Teams Director Summer Sessions Relationship Specialty Start Date End Date Scot Owen MD PCP - General Internal Medicine 01/23/1606/30/21 Lukas Bradford MD PCP - General Internal Medicine 07/01/21 08/10/21 Jan Palomino DO PCP - General Internal Medicine 08/11/21 11/16/23 Letitia Khalil MD [address] [place] [address] [place] [address] PCP - General Internal Medicine 11/17/23 06/21/24 [facility], Pcp [address] [place] [address] [facility] [place] [address] PCP - General Internal Medicine 06/22/24 Lane Valdes MD Specialist Cardiovascular Disease 01/14/22 Beti Greenwood MD [address] [place] [address] [facility] [place] [address] UROGYNECOLOGY 07/07/23 Juani Rhodes, ISAC [address] [facility] [place] [address] Cardiology 07/07/23 documented as of this encounter
--- OUTSIDE RECORDS SUMMARY | 2025-03-25 08:23 | XMS_ITS | Encounter Summary ---
Author Organization [facility] Address [address] [place] [id number] Care Team Providers Care Pharmacy Order Entry Technician Name Role Phone Pcp, No Primary Care Provider Unavailabl e Reason for Visit * Reason Comments Med Change Request Encounter Details Date Type Department Care Team (Late st Contact Info) Description 10/11/2024 Refill [facility] [address] [phone] Yaa Carbajal PA-C [address] [place] [address] Bacterial urinary tract infection Social History Tobacco [...] infection documented in this encounter Care Teams Pharmacy Order Entry Technician Relationship Specialty Start Date End Date Pcp, No PCP - General General Medicine 09/27/24 documented as of this encounter
--- OUTSIDE RECORDS SUMMARY | 2025-03-25 08:23 | XMS_ITS | Clinical Summary ---
Author Organization [facility] Address [address] [place] [address] Care Team Providers Care Poll Watcher Name Role Phone Jan Palomino DO Primary Care Provider [phone] Allergies Active Allergy Reactions Criticality Noted Date [...] Overview: Added automatically from request for surgery [id number] Vaginal atrophy 03/30/2023 Overview: Added automatically from request for surgery [id number] Social History Tobacco Use Types Packs/Day Years [...] 87 09/29/2023 8:51 AM EST Temperature 36.8 C (98.2 F) 06/30/2023 11:14 AM EDT Respiratory Rate 12 05/24/2023 2:15 PM EDT [...] 2024 01/06/2022, 11/25/2020, 11/04/2020 Influenza Vaccine (#1) 2025 , 05/13/2020, 05/02/2019, Additional history exists RSV [...] this topic Medical Devices Implanted Type Area Rewriter Device Identifier Shelf Expiration Date Model / Serial / Lot System Gynecare Tvt Exact 3mm Troc Retro Pubic Urnry Incont [facility] [id number] - [id number] Implanted:Qty: 1 on 05/24/2023 by Beti [place]wood [place] [facility] N/A: Vagina [facility] [employer] 12/27/2023 TVTRL / / [id number] Care Teams Poll Watcher Relationship Specialty Start Date End Date Jan Palomino DO [address] [place] [address] PCP - General Family Medicine 05/18/23
--- OUTSIDE RECORDS SUMMARY | 2025-03-25 08:23 | XMS_ITS ---
Author Name [facility] Organization Unknown Results Test Name/Text Value Interpretation Date Range Source Lymphocytes # Bld Auto 2.4 K/mcL Normal 12/07/2024 1 - 3.2 [facility] RBC Auto-Rto 12.9 % Normal 12/07/2024 12.1 - 16.2 [facility] Monocytes # Bld Auto 0.8 K/mcL Normal 12/07/2024 0 - 0.8 [facility] MCV RBC Auto 99.9 FL Normal 12/07/2024 78 - 100 [facility] Lymphocytes/leuk NFr Bld Auto 27.8 % Normal 12/07/2024 20 - 48 [facility] M[facility] RBC Qn Auto 34.0 pcg Above high normal 12/07/2024 25 - 33 [facility] MCHC RBC Auto-mCnc 34.0 g/dL Normal 12/07/2024 32 - 36 [facility] Neutrophils/leuk NFr Bld Auto 61.3 % Normal 12/07/2024 44 - 74 [facility] Basophils/leuk NFr Bld Auto 0.5 % Normal 12/07/2024 0 - 2 [facility] RBC # Bld Auto 4.45 M/mcL Normal 12/07/2024 4.2 - 5.4 [facility] Basophils # Bld Auto 0.0 K/mcL Normal 12/07/2024 0 - 0.2 [facility] WBC # Bld Auto 8.6 K/mcL Normal 12/07/2024 4 - 10.5 [facility] Eosinophil # Bld Auto 0.1 K/mcL Normal 12/07/2024 0 - 0.5 [facility] Neutrophils # Bld Auto 5.3 K/mcL Normal 12/07/2024 1.8 - 7.8 [facility] Hct VFr Bld Auto 44.5 % Normal 12/07/2024 37 - 47 [facility] Platelet # Bld Auto 401.0 K/mcL Normal 12/07/2024 150 - 4 50 [facility] PMV Bld Auto 7.2 FL Below low normal 12/07/2024 7.4 - 11. 4 [facility] Hgb Bld-mCnc 15.1 g/dL Normal 12/07/2024 12.5 - 16 [facility] Eosinophil/leuk NFr Bld Auto 1.7 % Normal 12/07/2024 0 - 6 [facility] Monocytes/leuk NFr Bld Auto 8.7 % Normal 12/07/2024 2 - 12 [facility] CO2 SerPl-sCnc 24.0 mmol/L Normal 12/07/2024 24 - 32 [facility] Potassium SerPl-sCnc 4.2 mmol/L Normal 12/07/2024 3.5 - 5 .1 [facility] Chloride SerPl-sCnc 103.0 mmol/L Normal 12/07/2024 98 - 1 07 [facility] BUN/Creat SerPl 20.0 Normal 12/07/2024 12 - 20 [facility] Anion Gap SerPl-sCnc 14.0 Normal 12/07/2024 5 - 14 [facility] Glucose SerPl-mCnc 105.0 mg/dL Normal 12/07/2024 70 - 199 [facility] BUN SerPl-mCnc 14.0 mg/dL Normal 12/07/2024 7 - 17 [facility] Calcium SerPl-mCnc 10.0 mg/dL Normal 12/07/2024 8.4 - 10. 2 [facility] eGFRcr SerPlBld CKD-EPI 2020 93.0 mL/min/1.73m2 Normal 12/07/2024 - [facility] Sodium SerPl-sCnc 141.0 mmol/L Normal 12/07/2024 135 - 14 5 [facility] Creat SerPl-mCnc 0.7 mg/dL Normal 12/07/2024 0.5 - 1 [facility] History of Medication Use Medication Directions Dispensed Refills Start Date End Date [facility] polyethylene glycol (Gavilax) 17 gram/dose oral powder TAKE 17 GRAMS (MIXED IN LIQUID) BY MOUTH ONCE EVERY DAY 01/14/2025 active methenamine hippurate (HIPREX) 1 gram tablet Take 1 tablet (1 g total) by mouth 2 (two) times a day for 7 days. while you have the indwelling Briceño catheter in place to prevent infection. 12/18/2024 active oxyCODONE (ROXICODONE) 5 mg immediate release tablet Take 1 tablet (5 mg total) by mouth every 6 (six) hours if needed for severe pain. For acute postoperative pain Max Daily Amount: 20 mg 12/18/2024 active acetaminophen (TYLENOL) 500 mg tablet Take 2 tablets (1,000 mg total) by mouth every 8 (eight) hours for 7 days. 12/17/2024 active docusate sodium (COLACE) 100 mg capsule Take 1 capsule (100 mg total) by mouth 2 (two) times a day. 12/17/2024 active ibuprofen (ADVIL,MOTRIN) 800 mg tablet Take 1 tablet (800 mg total) by mouth every 8 (eight) hours if needed for mild pain for up to 10 days. 12/17/2024 active ondansetron ODT (ZOFRAN-ODT) 4 mg disintegrating tablet Dissolve 1 tablet (4 mg total) on top of the tongue every 8 (eight) hours if needed for vomiting or nausea for up to 7 days. 12/17/2024 active polyethylene glycol (MIRALAX) 17 gram packet Take 17 g by mouth 1 (one) time each day. 12/17/2024 active simethicone (MYLICON) 80 mg chewable tablet Chew 1 tablet (80 mg total) every 6 (six) hours if needed (gas pain / bloating). 12/17/2024 active cephalexin (KEFLEX) 500 MG capsule Take 1 capsule (500 mg total) by mouth 3 (three) times a day. 10/19/2024 active amoxicillin-clavulana te (AUGMENTIN) 875-125 MG per tablet Take 1 tablet by mouth 2 (two) times a day. 10/11/2024 active saccharomyces boulardii (FLORASTOR) 250 MG capsule Take 1 capsule (250 mg total) by mouth 2 (two) times a day. 10/11/2024 active phenazopyridine (PYRIDIUM) 200 MG tablet Take 1 tablet (200 mg total) by mouth 3 (three) times a day as needed for bladder spasms. 09/27/2024 active dilTIAZem CD (CARDIZEM CD) 180 mg 24 hr capsule TAKE 1 CAPSULE BY MOUTH EVERY DAY 09/10/2024 active dilTIAZem CD (CARDIZEM CD) 180 mg 24 hr capsule TAKE 1 CAPSULE BY MOUTH EVERY DAY 09/10/2024 active diltiazem (CARDIZEM CD) 180 MG 24 hr capsule Take 1 tablet by mouth daily. 06/11/2024 active mirtazapine (REMERON) 7.5 mg tablet Take 2 Tablets by mouth at bedtime as needed for Other (sleep). 09/13/2023 aborted phenazopyridine (PYRIDIUM) 200 mg tablet Take 1 tablet (200 mg total) by mouth 3 times daily as needed. 06/02/2023 aborted ciprofloxacin (CIPRO) 250 mg tablet Take 1 tablet (250 mg total) by mouth 2 (two) times a day. 06/02/2023 active acetaminophen (TYLENOL) 325 mg tablet Take 3 tablets (975 mg total) by mouth every 6 hours as needed. 05/24/2023 aborted ibuprofen (ADVIL,MOTRIN) 600 mg tablet 05/24/2023 aborted lidocaine-hyalur oa-jkqt-btis ([facility] LOZANO) 2 % gel Apply topically as needed. 05/24/2023 aborted oxyCODONE (ROXICODONE) 5 mg immediate release tablet Take 1 tablet (5 mg total) by mouth every 4 (four) hours as needed. 05/24/2023 aborted polyethylene glycol (MIRALAX) 17 gram packet Take 17 g by mouth daily. 05/24/2023 aborted acetaminophen (TYLENOL) 325 MG tablet Take 3 tablets (975 mg total) by mouth every 6 (six) hours as needed for pain. 05/24/2023 active oxyCODONE (ROXICODONE) 5 MG immediate release tablet Take 1 tablet (5 mg total) by mouth every 4 (four) hours as needed. 05/24/2023 active nitrofurantoin monohydrate (MACROBID) 100 MG capsule Take 1 capsule (100 mg total) by mouth 2 (two) times a day with meals. 05/01/2023 3 active valACYclovir (VALTREX) 500 MG tablet Take 500 mg by mouth daily. 04/19/2023 active oxyCODONE-acetaminoph en (PERCOCET) 5-325 mg per tablet TAKE 1 TABLET BY MOUTH UP TO 5 TIMES DAILY NEEDED FOR SEVERE PAIN 04/18/2023 active valACYclovir (VALTREX) 500 mg tablet Take 1 tablet (500 mg total) by mouth 1 (one) time each day. 04/18/2023 active valACYclovir (VALTREX) 500 mg tablet Take 1 tablet (500 mg total) by mouth 1 (one) time each day. 04/18/2023 active estradioL (ESTRACE) 0.01 % (0.1 mg/gram) vaginal cream Apply a pea-sized amount of cream with your finger into the vagina daily at bedtime for 2 weeks, then two times a week at night. 03/21/2023 5 aborted oxyCODONE-acetaminoph en (PERCOCET) 10-325 mg per tablet Take 1 tablet by mouth 4 times daily as needed for Pain for up to 28 days. 08/11/2021 5 aborted LACTOBACILLUS ACIDOPHILUS ORAL Take by mouth daily. 5 aborted dilTIAZem (CARDIZEM CD) 180 MG 24 hr capsule Take 1 capsule (180 mg total) by mouth daily. active oxyCODONE-acetaminoph en (PERCOCET) 5-325 mg per tablet Take 1 tablet by mouth 4 (four) times a day. active oxyCODONE-acetaminoph en (PERCOCET) 5-325 mg per tablet Take 1 tablet by mouth 4 (four) times a day. active oxyCODONE-acetaminoph en (PERCOCET) 5-325 MG per tablet Take 1 tablet by mouth 4 (four) times a day. active Allergies Allergen Reaction Severity Comment Documented Date Source Status SULFA (SULFONAMIDE ANTIBIOTICS) ANAPHYLAXIS States nose clogged, difficulty swallowing 05/08/2024 [facility] active CIPROFLOXACIN UNKNOWN/PATIENT AND FAMILY UNABLE TO DEFINE 06/07/2023 [facility] active SULFA ANTIBIOTICS ANAPHYLAXIS 05/01/2023 [facility] active METAXALONE NAUSEA AND VOMITING 05/26/2022 [facility] active GABAPENTIN HIVES Hives/Urticaria 04/14/2018 [facility] active SERTRALINE RASH/DERMATITISRA SH Rash/Dermatitis 03/17/2017 [facility] active SULINDAC UNKNOWN/PATIENT AND FAMILY UNABLE TO DEFINE 06/09/2011 [facility] active SULFACETAMIDE SODIUM NUMBNESS Numbness, tingling or swelling of the lips, tongue or mouth 11/23/2005 [facility] active AMOXICILLIN NAUSEA ONLY Recently tolerated medication ,Numbness, tingling or swelling of the lips, tongue or mouth [facility] EGG RASH Rash/Dermatitis [facility] EGG SOLIDS, WHOLE RASH/DERMATITIS Rash/Dermatitis [facility] METHOCARBAMOL RUNNY NOSEOTHER (SEE COMMENTS) Runny Nose/Rhinitis [facility] OTHER Per pt, all antidepressants cause pt to develop sores [facility] PENICILLINS NAUSEA ONLYSHORTNESS OF BREATHSHORTNESS OF BREATH Tolerated cephalosporin 05/24/23 [facility] Problems Problem Status Onset Date Problem Type Date of Resolution Source Diverticulitis of colon without hemorrhage active 2006-04-07 ProblemAct [facility] Hyperlipidemia active 2020-09-18 ProblemAct [facility] Dysuria active 2024-10-26 ProblemAct [facility] Rosacea active 2006-02-02 ProblemAct [facility] Degeneration of cervical intervertebral disc active 2006-02-02 ProblemAct [facility] Herpes simplex type II infection active 1995-11-17 ProblemAct [facility] Urinary urgency active EncounterDiagnosisAct CTTHNEMG SVT (supraventricular tachycardia) ([facility] V24) active 2022-02-23 ProblemAct [facility] De Quervain's tenosynovitis active 2008-12-13 ProblemAct [facility] Enchondroma of femur active 2003-08-19 ProblemAct [facility] Colon, diverticulosis active 2017-04-18 ProblemAct [facility] Depression with anxiety active 2006-02-02 ProblemAct [facility] Lumbago active 2006-02-02 ProblemAct [facility] Encounter to establish care active 2024-10-26 ProblemAct [facility] Depression active 2017-03-11 ProblemAct [facility] Granulation tissue of vaginal cuff active EncounterDiagnosisAct CTT HNEMG Anxiety active 2023-11-17 ProblemAct [facility] Macrocytosis active 2024-11-08 ProblemAct [facility] Mitral valve prolapse active 2022-02-25 ProblemAct [facility] Vaginal atrophy active 2023-03-[address] [facility] Plantar fasciitis active 2011-07-14 ProblemAct [facility] Chronic pain syndrome active 2007-02-22 ProblemAct [facility] Breast cancer screening by mammogram active EncounterDiagnosisAct CT_[facility]J [facility] Plantar fasciitis active 2011-07-14 ProblemAct [facility] Degeneration of cervical intervertebral disc active 2006-02-02 ProblemAct [facility] Postoperative state active EncounterDiagnosisAc t [facility] Enchondroma of femur active 2003-08-19 ProblemAct [facility] Macrocytosis active 2024-11-08 ProblemAct [facility] Lumbago active 2006-02-02 ProblemAct [facility] Hyperlipidemia active 2020-09-18 ProblemAct [facility] Encounter to establish care active 2024-10-26 ProblemAct [facility] Depression active 2017-03-11 ProblemAct [facility] Colon, diverticulosis active 2017-04-18 ProblemAct [facility] Diverticulitis of colon without hemorrhage active 2006-04-07 ProblemAct [facility] Dysuria active 2024-10-26 ProblemAct [facility] Depression with anxiety active 2006-02-02 ProblemAct [facility] Herpes simplex type II infection active 1995-11-17 ProblemAct [facility] SVT (supraventricular tachycardia) (CMS/HCC V24) active 2022-02-23 ProblemAct [facility] Chronic pain syndrome active 2007-02-22 ProblemAct [facility] Anxiety active 2023-11-17 ProblemAct [facility] Rosacea active 2006-02-02 ProblemAct [facility] Vaginal atrophy active 2023-03-[address] [facility] De Quervain's tenosynovitis active 2008-12-13 ProblemAct [facility] Mitral valve prolapse active 2022-02-25 ProblemAct [facility] Uterovaginal prolapse, unspecified active 2023-03-30 ProblemAct [facility] Dysuria-frequency syndrome active 2024-02-12 ProblemAct [facility] Lumbar radiculitis active 2024-10-19 ProblemAct [facility] Urinary tract infection symptoms active EncounterDiagnosisAct CCT Immunizations Vaccine Date Source Lot Number Status Influenza Quadravalent, 0.5m l (Fluzone High-dose) 65yo and older 04/16/2024 [facility] comple rodrigue Influenza trivalent, 0.5mL ( Fluzone High-dose) 65yo and older 04/16/2024 [facility] [id number] comple rodrigue Pneumococcal conjugate 20 va lent (Prevnar 20, PCV 20) 2mo and older 07/12/2023 [facility] comple rodrigue Td Tetanus diptheria (Tdvax) 7yo and older 07/12/2023 [facility] [id number] completed COVID-19 (Moderna/Spikevax) 12yo and older 04/14/2023 [facility] [id number] completed Influenza Quadravalent, 0.5m l (Fluad) 65yo and older 04/14/2023 [facility] [id number] completed Influenza, Unspecified 04/14/2023 [facility] co mpleted Moderna (age 6mo & older) Bi valent, COVID-19, 0.5 mL or 0.25 mL dosage 04/14/2023 [facility] [id number] completed Influenza, Unspecified 05/10/2022 [facility] co mpleted Moderna (age 6mo & older) Bi valent, COVID-19, 0.5 mL or 0.25 mL dosage 05/07/2022 [facility] [id number] completed Moderna Covid-19 Bivalent, O riginal + Ba.1 (Non-US Tradename Spikevax Bivalent) 05/07/2022 [facility] [id number] completed Influenza Quadravalent, 0.5m l (Fluzone High-dose) 65yo and older 05/05/2022 [facility] [id number] comple rodrigue Influenza Quadravalent, 0.5m l (Fluzone High-dose) 65yo and older 05/07/2021 [facility] [id number] comple rodrigue Influenza trivalent, 0.5mL ( Fluzone High-dose) 65yo and older 04/29/2021 [facility]le rodrigue Zoster recombinant (Shingrix ) 19yo and older 03/11/2021 [id number] Zoster recombinant (Shingrix ) 19yo and older 12/23/2020 [facility] [id number] completed Influenza trivalent, 0.5mL ( Fluzone High-dose) 65yo and older 05/13/2020 [facility] [id number] comple rodrigue Pneumococcal polysaccharide 23 valent (Pneumovax 23) 2yo and older 05/13/[address] [facility] [id number] com pleted Influenza Quadravalent, MDCK , 0.5ml, preservative free (Flucelvax) 6mo and older 05/02/2019 [id number] completed Influenza Quadravalent, MDCK , 0.5ml, preservative free (Flucelvax) 6mo and older 06/19/2018 [id number] completed Influenza trivalent, with pr eservative (Fluzone; Afluria) 6mo and older 06/19/2018 [facility] completed Influenza Quadrivalent, 0.5m l, preservative free (Fluarix; FluLaval; Fluzone) ages 6mo and older (Afluria) 3yo and older 06/08/2017 [facility] [id number] completed Zoster Live 05/02/2015 [facility] [id number] completed Zoster recombinant (Shingrix ) 19yo and older 05/01/2015 [facility] completed Influenza trivalent, with pr eservative (Fluzone; Afluria) 6mo and older 04/19/2014 [facility] [id number] completed Influenza trivalent, with pr eservative (Fluzone; Afluria) 6mo and older 06/26/2013 [facility] [id number] completed Tdap Tetanus diptheria acell ular pertussis (Boostrix; Adacel) 7yo and older 10/25/2012 [facility] [id number] completed Influenza trivalent, with pr eservative (Fluzone; Afluria) 6mo and older 05/24/2012 [facility] completed Influenza trivalent, with pr eservative (Fluzone; Afluria) 6mo and older 06/09/2011 [facility] [id number] completed Td Tetanus diptheria (Tdvax) 7yo and older 12/27/2002 [facility] completed Td, Unspecified 12/27/2002 [facility] completed Encounters Encounter Type Encounter Reason Primary Diagnosis Location Date Ambulatory [facility] 02/01/2025 Ambulatory Other specified postprocedural states Other specified postprocedural states [facility] 01/02/2025 Ambulatory [facility] 12/20/2024 Ambulatory Cystocele, unspecified Cystocele, unspecified [facility] 12/07/2024 Ambulatory Pre-op Exam Encounter for ot her preprocedural examination [facility] 12/06/2024 Ambulatory Asymptomatic menopausal state Asymptomatic menopausal state [facility] 11/21/2024 Ambulatory Encounter for screening mammogram for malignant neoplasm of breast Encounter for screening mammogram for malignant neoplasm of breast [facility] 11/21/2024 Ambulatory [facility] 11/09/2024 Ambulatory Annual Exam Annual Exam [facility] 11/08/2024 Ambulatory new patient Body mass index (BMI) 25.0-25.9, adult [facility] 10/26/2024 Ambulatory Dysuria Dysuria [facility] 10/19/2024 Ambulatory Urinary Tract Infection Urinary Tract Infection [facility] 10/11/2024 Ambulatory Urinary Tract Infection Urinary Tract Infection [facility] 09/27/2024 Ambulatory Uterovaginal prolapse, unspecified Uterovaginal prolapse, unspecified [facility] [place] 05/24/2023 Ambulatory Acute cystitis without hematuria Acute cystitis without hematuria [employer] 05/01/2023 Care Team Organization Name Specialty Phone Email Start Date End Da te [facility] 11/27/2024 [facility] 11/21/2024 [facility] 11/07/2024 [facility] 10/27/2024 [employer] NO PCP Primary Care 09/27/2024 [employer] 09/18/2023 [facility] Isidoro Palomino DO Primary Care 08/10/202303/29 [employer] ISIDORO PALOMINO Primary Care 05/01/2023 11/27/19 [employer] ISIDORO FROYLAN Primary Care 05/01/2023 05/01/20 [facility] [place] 03/30/2023 11/14/2024 [facility] NIRU REYNOSO Primary Care 07/06/2022 04/16/2024 [facility] [place]
--- OUTSIDE RECORDS SUMMARY | 2025-03-25 08:23 | XMS_ITS | Data Portability ---
Author Organization [facility] Garzon s, [address] Address [address] [place] [address] Assessment No assessment recorded. Plan of Treatment Reminders Order Date Submit Date Provider Last Modified By Organization Details Last Modified Time Details Appointments None recorded. Lab urinalysis, dipstick 2023 024 djyakovvier [facility], [address] [place], [address], 11:46:37 culture, urine 2023 024 BELLEFONTAINE [facility] ([facility], [address] [place] [address], [place], [address], 4 18:06:08 Referral None recorded. Procedures None recorded. Surgeries None recorded. Imaging None recorded. Medication Orders Pyridium 100 mg tablet 2023 024 [facility]/Pharmacy #[id number], [address] [place], [address], 4 11:46:37 nitrofurant oin monohydrate /macrocryst als 100 mg capsule 2023 024 [id number] [address] [place], [address], 4 18:35:37 Patient TargetsNo targets recorded. Patient InstructionsNo instructions recorded. Reason for Referral None Reported. Results Created Date Observation Date Name Description Value Unit Range Abnormal Flag Note LastModifiedBy Organization Detail LastModifiedTime 02/12/20 24 02/12/2024 urina lysis , dipst ick Unknown Analyte Normal = light yellow Not Available [facility] [address] [place] [address], [address], 02/12/2024 10:50:52 02/12/20 24 02/12/2024 urina lysis , dipst ick Unknown Analyte Dark Yellow Not Available [facility] [address] [place] [address], [address], 02/12/2024 10:50:52 02/12/20 24 02/12/2024 urina lysis , dipst ick Unknown Analyte Normal = clear Not Available [facility] [address] [place] [address], [address], 02/12/2024 10:50:52 02/12/20 24 02/12/2024 urina lysis , dipst ick Unknown Analyte Cloudy Not Available [facility] [address] [place] [address], [address], 02/12/2024 10:50:52 02/12/20 24 02/12/2024 urina lysis , dipst ick Unknown Analyte Normal = negati ve Not Available [facility] [address] [place] [address], [address], 02/12/2024 10:50:52 02/12/20 24 02/12/2024 urina lysis , dipst ick Unknown Analyte 100 mg/dL Not Available [facility] [address] [place] [address], [address], 02/12/2024 10:50:52 02/12/20 24 02/12/2024 urina lysis , dipst ick Unknown Analyte Normal = Negati ve Not Available [facility] [address] [place] [address], [address], 02/12/2024 10:50:52 02/12/20 24 02/12/2024 urina lysis , dipst ick Unknown Analyte Negati ve Not Available [facility] [address] [place] [address], [address], 02/12/2024 10:50:52 02/12/20 24 02/12/2024 urina lysis , dipst ick Unknown Analyte Normal = Negati ve Not Available [facility] [address] [place] [address], [address], 02/12/2024 10:50:52 02/12/20 24 02/12/2024 urina lysis , dipst ick Unknown Analyte 15 mg/dL Not Available [facility] [address] [place] [address], [address], 02/12/2024 10:50:52 02/12/20 24 02/12/2024 urina lysis , dipst ick Unknown Analyte Normal = 1.010, 1.015, 1.020 Not Available [facility] [address] [place] [address], [address], 02/12/2024 10:50:52 02/12/20 24 02/12/2024 urina lysis , dipst ick Unknown Analyte 1.010 Not Available [facility] [address] [place] [address], [address], 02/12/2024 10:50:52 02/12/20 24 02/12/2024 urina lysis , dipst ick Unknown Analyte Normal = Negati ve Not Available [facility] [address] [place] [address], [address], 02/12/2024 10:50:52 02/12/20 24 02/12/2024 urina lysis , dipst ick Unknown Analyte Trace- intact Not Available [facility] [address] [place] [address], [address], 02/12/2024 10:50:52 02/12/20 24 02/12/2024 urina lysis , dipst ick Unknown Analyte Normal = 6.5, 7.0, 7.5, 8.0 Not Available [facility] [address] [place] [address], [address], 02/12/2024 10:50:52 02/12/20 24 02/12/2024 urina lysis , dipst ick Unknown Analyte 5.0 Not Available [facility] [address] [place] [address], [address], 02/12/2024 10:50:52 02/12/20 24 02/12/2024 urina lysis , dipst ick Unknown Analyte Normal = Negati ve Not Available [facility] [address] [place] [address], [phone], 02/12/2024 10:50:52 02/12/20 24 02/12/2024 urina lysis , dipst ick Unknown Analyte Trace Not Available [facility] [address] [place] [address], [address], 02/12/2024 10:50:52 02/12/20 24 02/12/2024 urina lysis , dipst ick Unknown Analyte Normal = 0.2, 1.0 Not Available [facility] [address] [place] [address], [address], 02/12/2024 10:50:52 02/12/20 24 02/12/2024 urina lysis , dipst ick Unknown Analyte 1.0 E.U./d L Not Available [facility] [address] [place] [address], [address], 02/12/2024 10:50:52 02/12/20 24 02/12/2024 urina lysis , dipst ick Unknown Analyte Normal = Negati ve Not Available [facility] [address] [place], [address], 02/12/2024 10:50:52 02/12/20 24 02/12/2024 urina lysis , dipst ick Unknown Analyte Positi ve Not Available [facility] [address] [place] [address], [address], 02/12/2024 10:50:52 02/12/20 24 02/12/2024 urina lysis , dipst ick Unknown Analyte Normal = Negati ve Not Available [facility] [address] [place] [address], [address], 02/12/2024 10:50:52 02/12/20 24 02/12/2024 urina lysis , dipst ick Unknown Analyte Large Not Available [facility] [address] [place] [address], [address], 02/12/2024 10:50:52 02/13/20 24 02/15/2024 URINE CULTU REANDREINA NE urine culture, routine FINAL REPORT abnormal Not Available [facility] ([facility]) [address] [facility], [place], [address], 02/15/2024 14:08:26 02/13/20 24 02/15/2024 URINE CULTU REANDREINA NE result 1 COMMEN T abnormal Beta [...] ) Not Available [facility] ([facility]) [address] [facility], [place], [address], 02/15/2024 14:08:26 Result Notes None recorded. Problems Name Problem SNOMED Code Status Onset Date Resolution Date Notes Provider Name and Address Organization Details Recorded Time Dysuria-fr equency syndrome 5438316 Active 024 Joan Hopper, ISAC [address] [place], [address] , [place] - [facility] 02/12/2024 11:44:23 Problem Notes None recorded. Medical Equipment None Reported. Allergies Allergen ID Allergen Name Allergen Category Reaction Reaction Severity Criticality Documentation Date Start Date Code Code System Note Provider Name and Address Organization Details Recorded Time 561105 Substance with sulfonami de structure and antibacte rial mechanism of action (substanc e) medicatio n Not available Not available Not available 02/12/2024 63274 8003 SNOMED Sheeba bills, [place] - [facility] 4 10:48:43 184122 Bactrim medicatio n Not available Not available Not available 02/12/2024 08377 9 RxNorm Sheeba bills, [place] - [facility] 4 10:48:50 Medications [...] FOR PAIN FOR UP TO 3 DAYS. 06/16 /2024 completed Not Available Not Available Not Available [...] in Arterial blood by Pulse oximetry Systolic And Diastolic Provider Name and Address Organization Details Last Updated DateTime 4 18 /min 167.64 cm 25.8 kg/m2 35780.7 8 g 97.9 [degF] 93 /min 97 % 97 % 147/84 mm[Hg] Sheebalisa Liebermanannie [place] - [facility] 10:51:36 Social History Question Answer Notes LastModified by Organizat ion Details LastModified Time Tobacco Smoking Status Former Smoker Sheebalisa Polo SAMI bills - [facility] 02/12/2024 [...] SNOMED-CT Code Diagnosis ICD10 Code Diagnosis Note [id number] [address] [facility] [address] [place] [address] 02/23/2020 08:37:39 02/23/2020 09:36:03 [id number] Joan Hopper, SYSTEM INTEGRATION ENGINEER [address] [address] [place] [address] 02/12/2024 10:37:17 02/12/2024 11:52:13 Dysuria-frequency syndrome 2179574 R30.0 The following are recommenda tions to [...] was prescribed . Thank you for using [employer] - please don't hesistate to call our [...] SUPPLEMENT) Neha Montilla 02/12/2024 1 MEDICARE B-[place]: [employer] Neha Montilla [id number] 1 Neha Montilla OBGyn Episode No OBEpisode recorded.
--- OUTSIDE RECORDS SUMMARY | 2025-03-25 08:23 | XMS_ITS | Clinical Summary ---
Author Organization [facility] Address [address] [place] [address] Phone Care Team Providers Care Gift Wrapper Name Role Phone Chyna Reina MD Primary Care Provider [phone] Allergies Active Allergy Reactions Criticality Noted Date [...] lips, tongue or mouth Sulindac 06/09/2011 Medications oxyCODONE-acet aminophen (PERCOCET) 5-325 mg per tablet Take 1 tablet by mouth 4 (four) times a day. Active valACYclovir (VALTREX) 500 mg tablet Take 1 tablet (500 mg total) by mouth 1 (one) time each day. 3 Active dilTIAZem CD (CARDIZEM CD) 180 mg 24 hr capsule TAKE 1 CAPSULE BY MOUTH EVERY DAY 90 capsule 1 5 Active simethicone (MYLICON) 80 mg chewable tablet Chew 1 tablet (80 mg total) every 6 (six) hours if needed (gas pain / bloating). 10 tablet 5 Active oxyCODONE (ROXICODONE) 5 mg immediate release tabletIndicati ons:acute post op pain Take 1 tablet (5 mg total) by mouth every 6 (six) hours if needed for severe pain. For acute postoperative pain Max Daily Amount: 20 mg 6 each 5 Active docusate sodium (COLACE) 100 mg capsule TAKE 1 CAPSULE BY MOUTH TWICE A DAY 60 capsule 5 Active polyethylene glycol (Gavilax) 17 gram/dose oral powder TAKE 17 GRAMS (MIXED IN LIQUID) BY MOUTH ONCE EVERY DAY 510 g 5 Active estradioL (ESTRACE) 0.01 % (0.1 mg/gram) vaginal cream Apply dime size amount to vagina digitally nightly for 2 weeks, then 2 times per week. 127.5 g 3 5 Active Active Problems Problem Noted Date [...] of fever, nausea, or vomiting -Follow with uro-director of product management Anxiety 11/17/2023 Vaginal atrophy 03/30/2023 Overview (05/08/2024): Added automatically from request for surgery [id number] Mitral valve prolapse 02/25/2022 Overview (05/29/2024): Last Assessment & Plan: Patient reports that she has history of mitral valve prolapse however her most recent echocardiogram did not show any structural abnormalities. Cardiac function is normal. Assessment & Plan (10/30/2024 11:14 AM EST): Orders: ECG 12 lead SVT (supraventricular tachycardia) ([facility] V24) 02/23/2022 Overview (05/29/2024): Last Assessment & [...] is currently following with pain management at [facility] Diverticulitis of colon without hemorrhage 04/07 Degeneration of cervical intervertebral disc 02/2006 Overview (05/29/2024): excision/fusion c5/6- Dr. Contreras Depression with anxiety 02/02/2006 Overview (05/29/2024): Dr. Batista - [facility] - stopped in 2011 - Samuel [...] 08/19/2003 Overview (05/29/2024): Dr. Maykel Ramírez - [facility] 2003 MRI and bone scan Herpes simplex type II infection 11/17/1995 Overview (05/29/2024): Confirmed by culture 05/22/0711/09 - valacyclovir 500mg qd for suppression Resolved Problems Problem Noted Date Diagnosed Date Resolved Date Uterovaginal prolapse, unspecified 03/30/2023 12/17/2024 Overview (05/08/2024): Added automatically from request for surgery [id number] Encounters Date Type Department Care Team Description 02/08/2025 Telephone Urogynecology - [place] [address] / [place] [address] Beti Greenwood MD Medication Problem 02/01/2025 11:45 AM EDT Office Visit Urogynecology - [place] [address] / [place] [address] Beti Greenwood MD Postoperative state (Primary Dx) 01/08/2025 Telephone Urogynecology - [place] [address] [place] [address] Beti Greenwood MD UTI 01/02/2025 11:45 AM EDT [facility] [address] [place] [address] Kimberley Azul NP Postoperative state (Primary Dx); Other specified disorders of urinary system from Last 3 Months Immunizations Name Administration [...] SALPINGECTOMY; Surgeon: Beti Greenwood MD; Location: [facility]; Service: Gynecology; Laterality: N/A; VAGINAL PROLAPSE REPAIR 05/24/2023 N/A PROCEDURE:VAGINAL PROLAPSE REPAIR;COMMENT:Procedure: VAGINAL COLPOPEXY (INTRAPERITONEAL APPROACH); Surgeon: Beti Greenwood MD; Location: [facility]; Service: Gynecology; Laterality: N/A; COLPORRHAPHY 05/24/2023 N/A PROCEDURE:COLPORRHAPHY;COMM ENT:Procedure: POSTERIOR REPAIR; Surgeon: Beti Greenwood MD; Location: [facility]; Service: Gynecology; Laterality: N/A; CYSTOSCOPY 05/24/2023 N/A PROCEDURE:CYSTOSCOPY;COMMEN T:Procedure: CYSTOSCOPY; Surgeon: Beti Greenwood MD; Location: [facility]; Service: Gynecology; Laterality: N/A; OTHER SURGICAL HISTORY 05/24/2023 N/A PROCEDURE:TVT / TOT UTERINE SUSPENSION;COMMENT:Procedur e: PLACEMENT OF MESH MID-URETHRAL SLING; Surgeon: Beti Greenwood MD; Location: [facility]; Service: Gynecology; Laterality: N/A; OTHER SURGICAL HISTORY 04/22/05 PROCEDURE: CO LAMOPLASTY CERVICAL DCMPRN CORD 2/> SEG RCNSTJ; COMMENT: Dr. Contreras OTHER SURGICAL HISTORY PROCEDURE: CO LIG/TRNSXJ FLP TUBE ABDL/VAG APPR UNI/BI TONSILLECTOMY ADENOIDECTOMY, BILATERAL MYRINGOTOMY AND TUBES PROCEDURE: CO TONSILLECTOMY & ADENOIDECTOMY <AGE 11 COLONOSCOPY 07/16/11 Meeta PROCEDURE: HISTORICAL COLONOSCOPY; COMMENT: tics; repeat in five yrs CARPAL TUNNEL RELEASE 10/08/15 Left PROCEDURE: HISTORICAL CARPAL TUNNEL REL; COMMENT: Dr. Negrete NOSE SURGERY PROCEDURE: CO UNLISTED PROCEDURE NOSE; COMMENT: rhinoplasty Medical History [...] Sign Reading Time Taken Comments Blood Pressure 127/72 02/01/2025 11:57 AM EDT Pulse 86 02/01/2025 11:57 AM EDT Temperature 36.8 C (98.2 F) 02/01/2025 11:57 AM EDT Respiratory Rate 18 12/17/2024 11:51 AM EDT Oxygen Saturation 95% 12/17/2024 11:51 AM EDT Inhaled Oxygen Concentration - - Weight 72.6 kg (160 lb) 12/17/2024 6:14 AM EDT Height 167.6 cm (5' 6 ) 12/17/2024 6:14 AM EDT Body Mass Index 25.82 12/17/2024 6:14 AM EDT Plan of Treatment Upcoming Encounters Date Type Department Care Team (Late st Contact Info) Description 05/13/2025 8:00 AM EDT Office Visit Internal Medicine - [place] [address] [place] [phone] Chyna Reina MD [address] [place] [address] Health Maintenance Due Date Last Done Comments Social Influencers of Health Screening 08/07/2022 COVID-19 Vaccine ( season) 2024 05/16/2024, 04/14/2023, 04/14/2023, Additional history exists Influenza Vaccine (#1) 2025 , 04/16/2024, 04/14/2023, Additional history exists Medicare Annual Wellness Visit 11/08/2025 11/08/2024 Falls [...] Vaccine: 50+ Years Completed 07/12/2023, 07/12/2023, 05/13/2020 Depression Screening Completed 11/08/2024, 07/12/20 23 HIB Vaccines Aged Out No longer eligi [...] this topic Medical Devices Implanted Type Area Fan Blade Aligner Device Identifier Shelf Expiration Date Model / Serial / Lot Mesh Y Upsylon - Sn/A - [id number] Implanted:Qty: 1 on 12/17/2024 by Beti Greenwood MD at [facility] Surgical Mesh Sling Implants N/A: Urinary Bladder [employer] 02/16/2027 [id number] / N/A / [id number] System Gynecare Tvt Exact 3mm Troc Retro Pubic Urnry Incont [facility] [id number] Implanted:Qty: 1 on 05/24/2023 by Beti Greenwood MD N/A: Vagina [facility] [employer] 12/27/2023 TVTRL / / [id number] Procedures Procedure Name Priority Date/Time Associated Diagnosis Comments CULTURE URINE Routine 01/16/2025 10:03 AM EDT Urinary tract infection without hematuria, site unspecified CULTURE URINE Routine 01/08/2025 3:53 PM EDT Urinary tract infection, site not specified POC URINE AUTO W/O MICRO Routine 01/02/2025 1:04 PM EDT Other specified disorders of urinary system BD BONE DENSITY DXA AXIAL SKELETON Routine 11/21/2024 10:44 AM EDT Post-menopause MG MAMMO DIGITAL SCREENING W LARRY BILAT Routine 11/21/2024 10:23 AM EDT Breast cancer screening by mammogram LIPID PANEL WITH REFLEX TO DIRECT LDL Routine 11/06/2024 8:55 AM EDT Dysuria Referral of patient without examination or treatment Body mass index 25.0-25.9, adult Screening for diabetes mellitus Hyperlipemia DEPRESSION SCREENING Routine 07/12/2023 FALLS RISK ASSESSMENT Routine 07/12/2023 COLONOSCOPY Routine 05/26/2022 HEPATITIS C SCREENING Routine 08/02/2016 from Last 3 Months or Most Recently Relevant to Health Maintenance Results * (ABNORMAL) Culture urine (01/16/2025 10:03 AM EDT) Only the most recent of2 resultswithin the time period is included. Culture, Urine >100,000 CFU/mL Escherichia coli(A) CONNER 01/18/2025 8:49 AM EDT [facility] Urine Urine specimen obtained by clean catch procedure / Unknown Non-blood Collection / Unknown 01/16/2025 10:03 AM EDT 01/16/2025 10:04 AM EDT Narrative Organism Antibiotic Method Susceptibility Escherichia coli Amoxicillin/Clavulanate CONNER <=2 ug/ml: Susceptible Escherichia coli Ampicillin/Sulbactam CONNER 4 ug/ml: Susceptible Escherichia coli Piperacillin/Tazobactam CONNER <=4 ug/ml: Susceptible Escherichia coli Cefazolin (Urine) CONNER <=1 ug/ml: Susceptible Escherichia coli Cefoxitin CONNER <=4 ug/ml: Susceptible Escherichia coli Ceftazidime CONNER <=0.5 ug/ml: Susceptible Escherichia coli Ceftriaxone CONNER <=0.25 ug/ml: Susceptible Escherichia coli Cefepime CONNER <=0.12 ug/ml: Susceptible Escherichia coli Meropenem CONNER <=0.25 ug/ml: Susceptible Escherichia coli Amikacin CONNER 4 ug/ml: Susceptible Escherichia coli Gentamicin CONNER <=1 ug/ml: Susceptible Escherichia coli Ciprofloxacin CONNER <=0.06 ug/ml: Susceptible Escherichia coli Levofloxacin CONNER <=0.12 ug/ml: Susceptible Escherichia coli Nitrofurantoin CONNER <=16 ug/ml: Susceptible Escherichia coli Trimethoprim/Sulfamethoxazole CONNER <=20 ug/ml: Susceptible Beti Greenwood MD LAB MICROBIOLOGY - GENERAL SILVIA GELLER Final Result [facility] [address] [place] [address], * POC Urine Auto W/O Micro (01/02/2025 1:04 PM EDT) Glucose UA POC Negative Negative, Trace mg/dL Bilirubin UA POC Negative Negative, Small Ketones UA POC Negative Negative, Trace Specific [place] UA POC 1.020 Blood UA POC Negative Negative, Large PH UA POC 5.5 Protein UA POC Negative Negative, >=300 mg/dL Urobilinogen UA POC 0.2 E.U./dL mg/dL Nitrite UA POC Negative Negative Leukocytes UA POC Negative Negative Urine Urine specimen obtained by clean catch procedure / Unknown 01/02/2025 1:04 PM EDT Kimberley Azul NP POINT OF CARE TEST ENTER/E DIT ORDERABLES Final Result * BD Bone Density DXA Axial Skeleton (11/21/2024 10:44 AM EDT) Anatomical Region Laterality Modality Wrist, Hip, L-spine Bone Densito metry 11/24/2024 7:24 PM EDT Impressions 11/25/2024 5:53 PM EDT 1. Osteoporosis. 2. FRAX: 10 year probability for major osteoporotic fracture 19.0% and hip fracture 8.2%. * Recommend obtaining bilateral hips [...] on 11/25/2024 5:53 PM. Workstation Name - [id number] -------- FINAL REPORT -------- Dictated By: Nicanor Lerner Dictated Date: 11/24/2024 19:24 ET Assigned Physician: Nicanor Lerner Reviewed and Electronically Signed By: Nicanor Lerner Signed Date: 11/25/2024 17:53 ET Workstation ID: [id number] Transcribed By: Self Edit Transcribed Date: 11/25/2024 16:26 ET Narrative 11/25/2024 5:53 PM EDT CLINICAL INDICATION / HISTORY: 69 years Female OTHER Post-menopause TECHNIQUE: Routine DXA scans of the lumbar spine and Left hip are acquired. CAMERA: GE COMPARISON: None FINDINGS: Lumbar Spine [...] Lerner on 11/25/2024 5:53 PM.Workstation Name - [id number] -------- FINAL REPORT -------- Dictated By: Nicanor Lerner Dictated Date: 11/24/2024 19:24 ET Assigned Physician: Nicanor Lerner Reviewed and Electronically Signed By: Nicanor Lerner Signed Date: 11/25/2024 17:53 ET Workstation ID: [id number] Transcribed By: Self Edit Transcribed Date: 11/25/2024 [...] density per current federal guidelines. Exam Location: [facility], [address] [place] [address], [id number], . Report reviewed and signed by : Dr. Jessica Saldivar on 11/27/2024 1:23 PM. Workstation Name - [id number] -------- FINAL REPORT -------- Dictated By: Jessica Saldivar Dictated Date: 11/27/2024 13:18 ET Assigned Physician: Jessica Saldivar Reviewed and Electronically Signed By: Jessica Saldivar Signed Date: 11/27/2024 13:23 ET Workstation ID: [id number] Transcribed By: Self Edit Transcribed Date: 11/27/2024 [...] breastdensity per current federal guidelines. Exam Location: [facility], [address] [place] [address], [facility], . Report reviewed and signed by : Dr. Jessica Saldivar on 11/27/2024 1:23 PM.Workstation Name - [id number] -------- FINAL REPORT -------- Dictated By: Jessica Saldivar Dictated Date: 11/27/2024 13:18 ET Assigned Physician: Jessica Saldivar Reviewed and Electronically Signed By: Jessica Saldivar Signed Date: 11/27/2024 13:23 ET Workstation ID: [id number] Transcribed By: Self Edit Transcribed Date: 11/27/2024 13:18 ET us Chyna Reina MD IMG BI PROCEDURES Final Result * (ABNORMAL) Lipid panel with reflex to direct LDL (11/06/2024 8:55 AM EDT) Cholesterol 255(H) 0 - 200 mg/dL LAB CHEMISTRY METHOD 11/06/2024 12:15 PM EDT [facility] Triglycerides 157(H) 0 - 150 mg/dL LAB CHEMISTRY METHOD 11/06/2024 12:15 PM EDT [facility] HDL 72 >=40 mg/dL LAB CHEMISTRY METHOD 11/06/2024 12:15 PM EDT [facility] LDL Calculated 152(H) 0 - 100 mg/dL LAB CHEMISTRY METHOD 11/06/2024 12:15 PM EDT [facility] VLDL Cholesterol Mert 31.4 mg/dL LAB CHEMISTRY METHOD 11/06/2024 12:15 PM EDT [facility] Non HDL Chol. (LDL+VLDL) 183(H) <145 mg/dL LAB CHEMISTRY METHOD 11/06/2024 12:15 PM EDT [facility] Chol/HDL Ratio 3.5 0.0 - 4.4 LAB CHEMISTRY METHOD 11/06/2024 12:15 PM EDT [facility] Blood Venous blood specimen / Unknown Venipuncture / Unknown 11/06/2024 8:55 AM EDT 11/06/2024 8:55 AM EDT us Chyna Reina MD LAB BLOOD ORDERABLES Final Resul t [facility] [address] [place] [address], * Falls Risk Assessment (07/12/2023) Falls Risk Assessment abstracted Historical Provider HEALTH MAINTENANCE Final Result * Depression Screening (07/12/2023) Pathologist [facility] Depression Screening abstracted [facility] Provider HEALTH MAINTENANCE Final Result * Colonoscopy (05/26/2022) Pathologist [facility] Colonoscopy no interpretation , abstracted Anatomical Region Laterality Modality Other [facility] Provider HEALTH MAINTENANCE Final Result * Hepatitis C Screening (08/02/2016) Pathologist [facility] Hepatitis C Screening abstracted [facility] Provider HEALTH MAINTENANCE Final Result from Last 3 Months or Most Recently Relevant to Health Maintenance Insurance [facility] Advance Directives * Full Code - Default [...] currently active code status orders. Care Teams Gift Wrapper Relationship Specialty Start Date End Date Chyna Reina MD [address] [place] [address] PCP - General Family Medicine 10/26/24
== END 2025-03-25 08:28 | disposition home or self-care (01) ==
LOC: HO.PMC 08:16
PROVIDERS: PCP Physician Assistant Medical; Visit Provider Nurse Practitioner Family
DX: Z79.891 Long term (current) use of opiate analgesic (principal); M47.816 Spondylosis without myelopathy or radiculopathy, lumbar region; G89.4 Chronic pain syndrome; M50.30 Other cervical disc degeneration, unspecified cervical region
CPT/HCPCS: 99214; G2211

== ENCOUNTER → 2025-03-25 08:15 | Outpatient (BNVA) | payer MEDICARE, SELFPAY | PROVIDERS: PCP Physician Assistant Medical; Visit Provider Nurse Practitioner Family | DX: Z51.81 Encounter for therapeutic drug level monitoring (principal); M47.816 Spondylosis without myelopathy or radiculopathy, lumbar region; M50.30 Other cervical disc degeneration, unspecified cervical region; G89.4 Chronic pain syndrome; Z79.891 Long term (current) use of opiate analgesic | CPT/HCPCS: 99212 ==

== ENCOUNTER 2025-05-24 08:20 | Outpatient (AMB) | payer MEDICARE, SELFPAY ==
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
--- OUTSIDE RECORDS SUMMARY | 2025-05-24 08:33 | XMS_ITS | Encounter Summary ---
Author Organization [facility] Address [address] [place] [address] Care Team Providers Care Radio Officer Name Role Phone Scot Owen MD Primary Care Provider Unavailable Lukas Bradford MD Primary Care Provider Jan Juárez DO Primary Care Provider UnavailLane Banerjee MD Unavailable Unavailable Beti Greenwood MD Unavailable Juani Rhodes NP Unavailable [phone] Letitia Khalil MD Primary Care Provider Un available [facility], Pcp Primary Care Provider Unavailabl e Encounter Details Date Type Department Care Team Description 12/04/2018 [facility] Medical Records [address] [place] [address] Abstract, Provider Social History Tobacco Use Types [...] How often do you attend chur or jain services? Never 07/12/2023 Do you belong to any clubs o r organizations such as sabianist groups, unions, fraternal or athletic groups, or [...] on filedocumented in this encounter Care Teams Radio Officer Relationship Specialty Start Date End Date Scot Owen MD PCP - General Internal Medicine 01/23/1606/30/21 Lukas Bradford MD PCP - General Internal Medicine 07/01/21 08/10/21 Jan Palomino DO PCP - General Internal Medicine 08/11/21 11/16/23 Letitia Khalil MD [address] [place] [address] [facility] [place] [address] PCP - General Internal Medicine 11/17/23 06/21/24 [facility], Pcp [address] [place] [address] [facility] [place] [address] PCP - General Internal Medicine 06/22/24 Lane Valdes MD Specialist Cardiovascular Disease 01/14/22 Beti Greenwood MD [address] [place] [address] [facility] [place] [address] UROGYNECOLOGY 07/07/23 Juani Rhodes, ISAC [address] [facility] [place] [address] Cardiology 07/07/23 documented as of this encounter
--- OUTSIDE RECORDS SUMMARY | 2025-05-24 08:34 | XMS_ITS | Encounter Summary ---
Author Organization [facility] Address [address] [place] [address] Care Team Providers Care Marble Mason Name Role Phone Jan Palomino DO Primary Care Provider UnavailLane Banerjee MD Unavailable Unavailable Beti Greenwood MD Unavailable Juani Rhodes NP Unavailable Letitia Khalil MD Primary Care Provider Un available [facility], Pcp Primary Care Provider Unavailabl e Encounter Details Date Type Department Care Team Description 05/27/2023 Telephone Urogynecology [address] [phone] Beti Greenwood MD [address] [place] [address] [place] [address] Social History Tobacco Use Types Packs/Day Years [...] on filedocumented in this encounter Care Teams Marble Mason Relationship Specialty Start Date End Date Jan Palomino DO PCP - General Internal Medicine 08/11/21 11/16/23 Letitia Khalil MD [address] [place], [place] [address] [place] [address] PCP - General Internal Medicine 11/17/23 06/21/24 [facility], Pcp [address] [place] [address] [place] [address] PCP - General Internal Medicine 06/22/24 Lane Valdes MD Specialist Cardiovascular Disease 01/14/22 Beti Greenwood MD [address] [place], [place] [address], [place] [address] UROGYNECOLOGY 07/07/23 Juani Rhodes, ISAC [address] [facility] [place] [address] Cardiology 07/07/23 documented as of this encounter
--- OUTSIDE RECORDS SUMMARY | 2025-05-24 08:34 | XMS_ITS | Encounter Summary ---
Author Organization [facility] Address [address] [place] [address] Care Team Providers Care Telephone Maintenance Mechanic Name Role Phone Jan Palomino DO Primary Care Provider UnavailLane Banerjee MD Unavailable Unavailable Beti Greenwood MD Unavailable Juani Rhodes NP Unavailable [phone] Letitia Khalil MD Primary Care Provider Un available [facility], [facility], Pcp Primary Care Provider Unavailabl e Encounter Details Date Type Department Care Team Description 07/11/2023 Cracking Machine Operator Report Medical Records [address] [place] [id number] Gumaro Vazquez MD Social History Tobacco Use [...] on filedocumented in this encounter Care Teams Telephone Maintenance Mechanic Relationship Specialty Start Date End Date Jan Palomino DO PCP - General Internal Medicine 08/11/21 11/16/23 Letitia Khalil MD [facility] [place] [address] PCP - General Internal Medicine 11/17/23 06/21/24 [facility], [facility], Pcp [address] [place] [address] [place] [address] PCP - General Internal Medicine 06/22/24 Lane Valdes MD Specialist Cardiovascular Disease 01/14/22 Beti Greenwood MD 4 [facility] [place] [address] UROGYNECOLOGY 07/07/23 Juani Rhodes NP 444 [facility] [place] [address] Cardiology 07/07/23 documented as of this encounter
--- OUTSIDE RECORDS SUMMARY | 2025-05-24 08:34 | XMS_ITS | Encounter Summary ---
Author Organization [facility] Address [address] [place] [address] Care Team Providers Care Food Processor Name Role Phone Jan Palomino DO Primary Care Provider UnavailLane Banerjee MD Unavailable Unavailable Beti Greenwood MD Unavailable Juani Rhodes NP Unavailable [phone] Letitia Khalil MD Primary Care Provider Un available [facility], Pcp Primary Care Provider Unavailabl e Encounter Details Date Type Department Care Team Description 03/04/2023 Occupational Health And Safety Officer Report Medical Records [address] [place] [address] Gumaro Vazquez MD Social History Tobacco Use [...] on filedocumented in this encounter Care Teams Food Processor Relationship Specialty Start Date End Date Jan Palomino, PCP - General Internal Medicine 08/11/21 11/16/23 Letitia Khalil MD [address] [place] [address] [place] [address] PCP - General Internal Medicine 11/17/23 06/21/24 [facility], Pcp [address] [place] [address] PCP - General Internal Medicine 06/22/24 Lane Valdes MD Specialist Cardiovascular Disease 01/14/22 Beti Greenwood MD 4 [facility] [place] [address] UROGYNECOLOGY 07/07/23 Juani Rhodes NP 444 [facility] [place] [address] Cardiology 07/07/23 documented as of this encounter
--- OUTSIDE RECORDS SUMMARY | 2025-05-24 08:34 | XMS_ITS | Encounter Summary ---
Author Organization [facility] Address [address] [place] [address] Care Team Providers Care Machine Pecan Picker Name Role Phone Jan Palomino DO Primary Care Provider UnavailLane Banerjee MD Unavailable Unavailable Beti Greenwood MD Unavailable Juani Rhodes NP Unavailable [phone] Letitia Khalil MD Primary Care Provider Un available [facility], Pcp Primary Care Provider Unavailabl e Encounter Details Date Type Department Care Team Description 04/29/2023 Telephone Adult Medicine - [address] [address] Jan Palomino, Social History Tobacco Use Types [...] often do you attend chur ch or episcopalian services? Never 07/12/2023 Do you [...] suspected to have Coronavirus/COVID-19? No / Unsure 04/28/2023 9:40 AM EDT documented as of this encounter Miscellaneous Notes * Telephone Encounter - Hodan Mccoy M.A. - 04/29/2023 1:52 PM EDT ----- Message from Jan Palomino DO sent at 04/28/2023 1:57 PM EDT ----- Please review documented in this encounter Plan of Treatment Not on file documented as of this encounter Visit Diagnoses Not on filedocumented in this encounter Care Teams Machine Pecan Picker Relationship Specialty Start Date End Date Jan Palomino DO PCP - General Internal Medicine 08/11/21 11/16/23 Letitia Khalil MD [address] [facility] [place] [address] PCP - General Internal Medicine 11/17/23 06/21/24 [facility], Pcp 444 [place] [address] PCP - General Internal Medicine 06/22/24 Lane Valdes MD Specialist Cardiovascular Disease 01/14/22 Beti Greenwood MD [address] [facility] [place] [address] UROGYNECOLOGY 07/07/23 Juani Rhodes NP [address] [facility] [place] [address] Cardiology 07/07/23 documented as of this encounter
--- OUTSIDE RECORDS SUMMARY | 2025-05-24 08:34 | XMS_ITS | Encounter Summary ---
Author Organization [facility] Address [address] [place] [address] Care Team Providers Care Composite Laminator Name Role Phone Scot Owen MD Primary Care Provider Unavailable Lukas Bradford MD Primary Care Provider Jna Juárez DO Primary Care Provider UnavailLane Banerjee MD Unavailable Unavailable Beti Greenwood MD Unavailable Juani Rhodes NP Unavailable [phone] Letitia Khalil MD Primary Care Provider Un available [facility], Pcp Primary Care Provider Unavailabl e Encounter Details Date Type Department Care Team Description 05/02/2019 [facility] Medical Records [address] [place] [address] Abstract, Provider Social History Tobacco Use Types [...] on filedocumented in this encounter Care Teams Composite Laminator Relationship Specialty Start Date End Date Scot Owen MD PCP - General Internal Medicine 01/23/1606/30/21 Lukas Bradford MD PCP - General Internal Medicine 07/01/21 08/10/21 Jan Palomino DO PCP - General Internal Medicine 08/11/21 11/16/23 Letitia Khalil MD [address] [place] [address] [facility] [place] [address] PCP - General Internal Medicine 11/17/23 06/21/24 [facility], Pcp [address] [place] [address] [facility]ologTr[facility] [place] [address] PCP - General Internal Medicine 06/22/24 Lane Valdes MD Specialist Cardiovascular Disease 01/14/22 Beti Greenwood MD [address] [place] [address] [facility]gynecologTrigg [place] [address] UROGYNECOLOGY 07/07/23 Juani Rhodes, ISAC [address] [facility] [place] [address] Cardiology 07/07/23 documented as of this encounter
--- OUTSIDE RECORDS SUMMARY | 2025-05-24 08:35 | XMS_ITS | Encounter Summary ---
Author Organization [facility] Address [address] [place] [address] Care Team Providers Care Hair Weaver Name Role Phone Jan Palomino DO Primary Care Provider UnavailLane Banerjee MD Unavailable Unavailable Beti Greenwood MD Unavailable Juani Rhodes NP Unavailable Letitia Khalil MD Primary Care Provider Un available [facility], Pcp Primary Care Provider Unavailabl e Encounter Details Date Type Department Care Team Description 05/31/2022 Orders Only Medical Records [address] [place] [address] Mauricio Stewart MD [address] [place] [address] [address] [place] [address] Social History Tobacco Use Types Packs/Day Years [...] How often do you attend chur or jainism services? Never 07/12/2023 Do you belong to [...] on filedocumented in this encounter Care Teams Hair Weaver Relationship Specialty Start Date End Date Jan Palomino DO PCP - General Internal Medicine 08/11/21 11/16/23 Letitia Khalil MD [address] [place] [address] [place] [address] PCP - General Internal Medicine 11/17/23 06/21/24 [facility], Pcp [address] [place] [address] [facility] [place] [address] PCP - General Internal Medicine 06/22/24 Lane Valdes MD Specialist Cardiovascular Disease 01/14/22 Beti Greenwood MD 444 [facility] [place] [address] UROGYNECOLOGY 07/07/23 Juani Rhodes NP 444 [facility] [place] [address] Cardiology 07/07/23 documented as of this encounter
--- OUTSIDE RECORDS SUMMARY | 2025-05-24 08:35 | XMS_ITS | Encounter Summary ---
Author Organization [facility] Address [address] [place] [address] Care Team Providers Care Seat Cover Maker Name Role Phone Scot Owen MD Primary Care Provider Unavailable Lukas Bradford MD Primary Care Provider Jan Juárez DO Primary Care Provider UnavailLane Banerjee MD Unavailable Unavailable Beti Greenwood MD Unavailable Juani Rhodes NP Unavailable [phone] Letitia Khalil MD Primary Care Provider Un available [facility], Pcp Primary Care Provider Unavailabl e Encounter Details Date Type Department Care Team Description 10/12/2018 [facility] Medical Records [address] [place] [address] Abstract, Provider Social History Tobacco Use Types [...] any clubs o r organizations such as yarsani groups, unions, fraternal or athletic groups, or [...] on filedocumented in this encounter Care Teams Seat Cover Maker Relationship Specialty Start Date End Date Scot Owen MD PCP - General Internal Medicine 01/23/1606/30/21 Lukas Bradford MD PCP - General Internal Medicine 07/01/21 08/10/21 Jan Palomino DO PCP - General Internal Medicine 08/11/21 11/16/23 Letitia Khalil MD [address] [place] [address] [place] [address] PCP - General Internal Medicine 11/17/23 06/21/24 [facility], Pcp [address] [place] [address] [facility] [place] [address] PCP - General Internal Medicine 06/22/24 Lane Valdes MD Specialist Cardiovascular Disease 01/14/22 Beti Greenwood MD [address] [place] [address] [facility] [place] [address] UROGYNECOLOGY 07/07/23 Juani Rhodes, ISAC 444 [facility] [place] [address] Cardiology 07/07/23 documented as of this encounter
--- OUTSIDE RECORDS SUMMARY | 2025-05-24 08:35 | XMS_ITS | Encounter Summary ---
Author Organization [facility] Address [address] [place] [address] Care Team Providers Care Group Fitness Instructor Name Role Phone Jan Palomino DO Primary Care Provider UnavailLane Banerjee MD Unavailable Unavailable Beti Greenwood MD Unavailable Juani Rhodes NP Unavailable [phone] Letitia Khalil MD Primary Care Provider Un available [facility], Pcp Primary Care Provider Unavailabl e Encounter Details Date Type Department Care Team Description 12/10/2022 Test Fixture Assembler Report Medical Records [address] [place] [address] Dilcia Meadows NP Social History Tobacco Use [...] on filedocumented in this encounter Care Teams Group Fitness Instructor Relationship Specialty Start Date End Date Jan Palomino, PCP - General Internal Medicine 08/11/21 11/16/23 Letitia Khalil MD 4 [facility] [place] [address] PCP - General Internal Medicine 11/17/23 06/21/24 [facility], Pcp [address] [place] [address] PCP - General Internal Medicine 06/22/24 Lane Valdes MD Specialist Cardiovascular Disease 01/14/22 Beti Greenwood MD 444 [facility] [place] [address] UROGYNECOLOGY 07/07/23 Juani Rhodes NP 444 [facility] [place] [address] Cardiology 07/07/23 documented as of this encounter
--- OUTSIDE RECORDS SUMMARY | 2025-05-24 08:35 | XMS_ITS | Encounter Summary ---
Author Organization [facility] Address [address] [place] [address] Care Team Providers Care Entry Level Web Developer Name Role Phone Jan Palomino DO Primary Care Provider UnavailLane Banerjee MD Unavailable Unavailable Beti Greenwood MD Unavailable Juani Rhodes NP Unavailable [phone] Letitia Khalil MD Primary Care Provider Un available [facility], Pcp Primary Care Provider Unavailabl e Encounter Details Date Type Department Care Team Description 03/10/2023 Pt. Non Urgent Medic al Question Adult Medicine - [place] [address] [place] [address] Margie Lala MD [address] [place] [address] Social History Tobacco Use Types Packs/Day Years [...] often do you attend chur ch or holiness services? Never 07/12/2023 Do you belong to [...] suspected to have Coronavirus/COVID-19? No / Unsure 03/10/2023 8:34 AM EDT documented as of this encounter Plan of Treatment Not on file documented as of this encounter Visit Diagnoses Not on filedocumented in this encounter Care Teams Entry Level Web Developer Relationship Specialty Start Date End Date Jan Palomino DO PCP - General Internal Medicine 08/11/21 11/16/23 Letitia Khalil MD 4 [facility] [place] [place] [address] PCP - General Internal Medicine 11/17/23 06/21/24 [facility], Pcp [address] [place], [place] [address] [place] [address] PCP - General Internal Medicine 06/22/24 Lane Valdes MD Specialist Cardiovascular Disease 01/14/22 Beti Greenwood MD [address] [place] [address] [place] [address] UROGYNECOLOGY 07/07/23 Juani Rhodes, ISAC [address] [facility] [place] [address] Cardiology 07/07/23 documented as of this encounter
--- OUTSIDE RECORDS SUMMARY | 2025-05-24 08:36 | XMS_ITS | Encounter Summary ---
Author Organization [facility] Address [address] [place] [address] Care Team Providers Care Electrocardiograph Repairer Name Role Phone Scot Owen MD Primary Care Provider Unavailable Lukas Bradford MD Primary Care Provider Jan Juárez DO Primary Care Provider UnavailLane Banerjee MD Unavailable Unavailable Beti Greenwood MD Unavailable Juani Rhodes NP Unavailable [phone] Letitia Khalil MD Primary Care Provider Un available [facility], Pcp Primary Care Provider Unavailabl e Encounter Details Date Type Department Care Team Description 04/24/2020 [facility] Medical Records [address] [place] [address] Abstract, Provider Social History Tobacco Use Types [...] on filedocumented in this encounter Care Teams Electrocardiograph Repairer Relationship Specialty Start Date End Date Scot Owen MD PCP - General Internal Medicine 01/23/1606/30/21 Lukas Bradford MD PCP - General Internal Medicine 07/01/21 08/10/21 Jan Palomino DO PCP - General Internal Medicine 08/11/21 11/16/23 Letitia Khalil MD [address] [place] [address] [place] [address] PCP - General Internal Medicine 11/17/23 06/21/24 [facility], Pcp [address] [place] [address] [facility] [place] [address] PCP - General Internal Medicine 06/22/24 Lane Valdes MD Specialist Cardiovascular Disease 01/14/22 Beti Greenwood MD [address] [place] [address] [facility] [place] [address] UROGYNECOLOGY 07/07/23 Juani Rhodes, ISAC 444 [facility] [place] [address] Cardiology 07/07/23 documented as of this encounter
--- OUTSIDE RECORDS SUMMARY | 2025-05-24 08:36 | XMS_ITS | Encounter Summary ---
Author Organization [facility] Address [address] [place] [address] Care Team Providers Care Diesel Technician Name Role Phone AshliAlexel Abebe Primary Care Provider UnaKristina Herrera MD Primary Care Provider UnavailScot Hansen MD Primary Care Provider Unavailable Lukas Bradford MD Primary Care Provider Jan Juárez DO Primary Care Provider Unavaila Lane Villalobos MD Unavailable Unavailable Beti Greenwood MD Unavailable Juani Rhodes NP Unavailable [phone] Letitia Khalil MD Primary Care Provider Un available [facility], Pcp Primary Care Provider Unavailabl e Encounter Details Date Type Department Care Team Description 11/03/2014 Pt. Non Urgent Medic al Question Physiatry - [address] [address] Niels Jackson DO Social History Tobacco Use [...] r organizations such as scientology groups, unions, fraquitchen or athletic groups, or school groups? Yes [...] filedocumented in this encounter Care Teams Diesel Technician Relationship Specialty Start Date End Date Samuel Cornelius PCP - General 08/29/05 12/24/15 Kristina Chatman MD PCP - General Internal Medicine 12/25/15 01/22/16 Scot Owen MD PCP - General Internal Medicine 01/23/1606/30/21 Lukas Bradford MD PCP - General Internal Medicine 07/01/21 08/10/21 Jan Palomino DO PCP - General Internal Medicine 08/11/21 11/16/23 Letitia Khalil MD [address] [place] [address] [place] [address] PCP - General Internal Medicine 11/17/23 06/21/24 [facility], [address] [place] [address] PCP - General Internal Medicine 06/22/24 Lane Valdes MD Specialist Cardiovascular Disease 01/14/22 Beti Greenwood MD 444 [facility] [place] [address] UROGYNECOLOGY 07/07/23 Juani Rhodes NP 444 [facility]gynecolog[facility] [place] [address] Cardiology 07/07/23 documented as of this encounter
--- OUTSIDE RECORDS SUMMARY | 2025-05-24 08:36 | XMS_ITS | Encounter Summary ---
Author Organization [facility] Address [address] [place] [address] Care Team Providers Care Service Worker Name Role Phone Pcp, No Primary Care Provider Unavailabl e Reason for Visit * Reason Comments Med Change Request Encounter Details Date Type Department Care Team (Late st Contact Info) Description 10/11/2024 Refill [facility] [address] [phone] Yaa Carbajal PA-C [address] [place] [address] Bacterial urinary tract infection Social History Tobacco [...] infection documented in this encounter Care Teams Service Worker Relationship Specialty Start Date End Date Pcp, No PCP - General General Medicine 09/27/24 documented as of this encounter
--- OUTSIDE RECORDS SUMMARY | 2025-05-24 08:36 | XMS_ITS | Encounter Summary ---
Author Organization [facility] Address [address] [place] [address] Care Team Providers Care Proposal Editor Name Role Phone Scot Owen MD Primary Care Provider Unavailable Lukas Bradford MD Primary Care Provider Jan Juárez DO Primary Care Provider UnavailLane Banerjee MD Unavailable Unavailable Beti Greenwood MD Unavailable Juani Rhodes NP Unavailable [phone] Letitia Khalil MD Primary Care Provider Un available [facility], Pcp Primary Care Provider Unavailabl e Encounter Details Date Type Department Care Team Description 05/21/2020 [facility] Medical Records [address] [place] [address] Abstract, Provider Social History Tobacco Use Types [...] often do you attend chur ch or restorationism services? Never 07/12/2023 Do you belong to any clubs o r organizations such as cheondoism groups, unions, fraternal or athletic groups, or [...] on filedocumented in this encounter Care Teams Proposal Editor Relationship Specialty Start Date End Date Scot Owen MD PCP - General Internal Medicine 01/23/1606/30/21 Lukas Bradford MD PCP - General Internal Medicine 07/01/21 08/10/21 Jan Palomino DO PCP - General Internal Medicine 08/11/21 11/16/23 Letitia Khalil MD [address] [place] [address] [place] [address] PCP - General Internal Medicine 11/17/23 06/21/24 [facility], Pcp [address] [place] [address] [place] [address] PCP - General Internal Medicine 06/22/24 Lane Valdes MD Specialist Cardiovascular Disease 01/14/22 Beti Greenwood MD 444 [facility] [place] [address] UROGYNECOLOGY 07/07/23 Juani Rhodes NP 444 [facility] [place] [address] Cardiology 07/07/23 documented as of this encounter
--- OUTSIDE RECORDS SUMMARY | 2025-05-24 08:36 | XMS_ITS | Encounter Summary ---
Author Organization [facility] Address [address] [place] [address] Care Team Providers Care Hotel Controller Name Role Phone Jan Palomino DO Primary Care Provider UnavailLane Banerjee MD Unavailable Unavailable Beti Greenwood MD Unavailable Juani Rhodes NP Unavailable [phone] Letitia Khalil MD Primary Care Provider Un available [facility], Pcp Primary Care Provider Unavailabl e Encounter Details Date Type Department Care Team Description 11/05/2022 Electrician Helper Powerhouse Report Medical Records [address] [place] [address] Gumaro Vazquez MD Social History Tobacco Use [...] often do you attend chur ch or mu-ism services? Never 07/12/2023 Do you belong to [...] on filedocumented in this encounter Care Teams Hotel Controller Relationship Specialty Start Date End Date Jan Palomino, PCP - General Internal Medicine 08/11/21 11/16/23 Letitia Khalil MD [address] [place] [address] [place] [address] PCP - General Internal Medicine 11/17/23 06/21/24 [facility], Pcp [address] [place] [address] PCP - General Internal Medicine 06/22/24 Lane Valdes MD Specialist Cardiovascular Disease 01/14/22 Beti Greenwood MD 4 [facility] [place] [address] UROGYNECOLOGY 07/07/23 Juani Rhodes NP 444 [facility] [place] [address] Cardiology 07/07/23 documented as of this encounter
--- OUTSIDE RECORDS SUMMARY | 2025-05-24 08:36 | XMS_ITS | Encounter Summary ---
Author Organization [facility] Address [address] [place] [address] Care Team Providers Care Photographic Plate Maker Name Role Phone Scot Owen MD Primary Care Provider Unavailable Lukas Bradford MD Primary Care Provider Jan Juárez DO Primary Care Provider UnavailLane Banerjee MD Unavailable Unavailable Beti Greenwood MD Unavailable Juani Rhodes NP Unavailable [phone] Letitia Khalil MD Primary Care Provider Un available [facility], Pcp Primary Care Provider Unavailabl e Encounter Details Date Type Department Care Team Description 04/21/2020 Pt. Non Urgent Medic al Question Adult Medicine - [address] [address] Scot Owen MD Social History Tobacco Use [...] Progress Notes * Katia Arroyo L.P.N. - 04/21/2020 9:40 AM EDTFrom: Neha Wright To: Scot Owen MD Sent: 04/21/2020 9:38 AM EDT Subject: tack picker Do i go to [facility] tack picker my prescription? documented in this encounter Plan of Treatment Not on file documented as of this encounter Visit Diagnoses Not on filedocumented in this encounter Care Teams Photographic Plate Maker Relationship Specialty Start Date End Date Scot Owen MD PCP - General Internal Medicine 01/23/1606/30/21 Lukas Bradford MD PCP - General Internal Medicine 07/01/21 08/10/21 Jan Palomino DO PCP - General Internal Medicine 08/11/21 11/16/23 Letitia Khalil MD [address] [facility] [place] [address] PCP - General Internal Medicine 11/17/23 06/21/24 [facility], Pcp [address] [facility] [place] [address] PCP - General Internal Medicine 06/22/24 Lane Valdes MD Specialist Cardiovascular Disease 01/14/22 Beti Greenwodo MD 444 [facility] [place] [address] UROGYNECOLOGY 07/07/23 Juani Rhodes NP 444 [facility] [place] [address] Cardiology 07/07/23 documented as of this encounter
--- OUTSIDE RECORDS SUMMARY | 2025-05-24 08:36 | XMS_ITS | Encounter Summary ---
Author Organization [facility] Address [address] [place] [address] Care Team Providers Care Branch Retail Executive Name Role Phone Jan Palomino DO Primary Care Provider UnavailLane Banerjee MD Unavailable Unavailable Beti Greenwood MD Unavailable Juani Rhodes NP Unavailable [phone] Letitia Khalil MD Primary Care Provider Un available [facility], Pcp Primary Care Provider Unavailabl e Encounter Details Date Type Department Care Team Description 12/27/2022 Pt. Non Urgent Medic al Question Adult Medicine - [address] [address] Jan Palomino DO Social History Tobacco Use [...] confirmation number for his referral to urology [id number] His cell phone is [phone] documented in this encounter Plan of Treatment Not on file documented as of this encounter Visit Diagnoses Not on filedocumented in this encounter Care Teams Branch Retail Executive Relationship Specialty Start Date End Date Jan Palomino DO PCP - General Internal Medicine 08/11/21 11/16/23 Letitia Khalil MD [address] [place] [address] [facility] [place] [address] PCP - General Internal Medicine 11/17/23 06/21/24 [facility], Pcp [address] [place] [address] [facility] [place] [address] PCP - General Internal Medicine 06/22/24 Lane Valdes MD Specialist Cardiovascular Disease 01/14/22 Beti Greenwood MD [address] [facility] U[facility]cology [facility] [place] [address] UROGYNECOLOGY 07/07/23 Juani Rhodes NP [address] [facility]necology [facility] [place] [address] Cardiology 07/07/23 documented as of this encounter
--- OUTSIDE RECORDS SUMMARY | 2025-05-24 08:36 | XMS_ITS | Encounter Summary ---
[facility] Organization [facility] Address [address] [place] [address] Care Team Providers Care Desk Pen Set Assembler Name Role Phone Scot Owen MD Primary Care Provider Unavailable Lukas Bradford MD Primary Care Provider Jan Juárez DO Primary Care Provider UnavailLane Banerjee MD Unavailable Unavailable Beti Greenwood MD Unavailable Juani Rhodes NP Unavailable [phone] Letitia Khalil MD Primary Care Provider Un available [facility], Pcp Primary Care Provider Unavailabl e Encounter Details Date Type Department Care Team Description 02/28/2020 [facility] Medical Records [address] [place] [address] Abstract, Provider Social History Tobacco Use Types [...] any clubs o r organizations such as orthodox groups, unions, fraternal or athletic groups, or [...] on filedocumented in this encounter Care Teams Desk Pen Set Assembler Relationship Specialty Start Date End Date Scot Owen MD PCP - General Internal Medicine 01/23/1606/30/21 Lukas Bradford MD PCP - General Internal Medicine 07/01/21 08/10/21 Jan Palomino DO PCP - General Internal Medicine 08/11/21 11/16/23 Letitia Khalil MD [address] [place] [address] [facility] [place] [address] PCP - General Internal Medicine 11/17/23 06/21/24 [facility], Pcp [address] [place] [address] [facility] [place] [address] PCP - General Internal Medicine 06/22/24 Lane Valdes MD Specialist Cardiovascular Disease 01/14/22 Beti Greenwood MD [address] [place] [address] [facility] [place] [address] UROGYNECOLOGY 07/07/23 Juani Rhodes, ISAC [address] [facility] [place] [address] Cardiology 07/07/23 documented as of this encounter
--- OUTSIDE RECORDS SUMMARY | 2025-05-24 08:36 | XMS_ITS | Encounter Summary ---
Author Organization [facility] Address [address] [place] [address] Care Team Providers Care Cash Management Clerk Name Role Phone Samuel Cornelius Primary Care Provider UnaKristina Herrera MD Primary Care Provider UnavailScot Hansen MD Primary Care Provider Unavailable Lukas Bradford MD Primary Care Provider Jan Juárez DO Primary Care Provider Unavaila Lane Villalobos MD Unavailable Unavailable Beti Greenwood MD Unavailable Juani Rhodes NP Unavailable [phone] Letitia Khalil MD Primary Care Provider Un available [facility], Pcp Primary Care Provider Unavailabl e Encounter Details Date Type Department Care Team Description 09/23/2015 Pt. Non Urgent Medical Question Adult Medicine - [address] [address] Samuel Cornelius Social History Tobacco Use Types [...] Progress Notes * Selene Boyle L.P.N. - 09/23/2015 10:24 AM ESTFrom: Neha Wright To: Samuel Cornelius MD Sent: 09/23/2015 10:21 AM EST Subject: surgery I'm having surgery on oct 08 for my carpel tunnel. I told dr Negrete i was on a pain management program, so he told me to contact you for the extra pain meds i will need for this. Thank you, Neha Gonzales documented in this encounter Plan of Treatment Not on file documented as of this encounter Visit Diagnoses Not on filedocumented in this encounter Care Teams Cash Management Clerk Relationship Specialty Start Date End Date Samuel Cornelius PCP - General 08/29/05 12/24/15 Kristina Chatman MD PCP - General Internal Medicine 12/25/15 01/22/16 Scot Owen MD PCP - General Internal Medicine 01/23/1606/30/21 Lukas Bradford MD PCP - General Internal Medicine 07/01/21 08/10/21 Jan Palomino DO PCP - General Internal Medicine 08/11/21 11/16/23 Letitia Khalil MD [address] [place] [address] [place] [address] PCP - General Internal Medicine 11/17/23 06/21/24 [facility], Pcp [address] [place] [address] [place] [address] PCP - General Internal Medicine 06/22/24 Lane Valdes MD Specialist Cardiovascular Disease 01/14/22 Beti Greenwood MD [address] [place] [address] [place] [address] UROGYNECOLOGY 07/07/23 Juani Rhodes, ISAC [address] [facility] [place] [address] Cardiology 07/07/23 documented as of this encounter
--- OUTSIDE RECORDS SUMMARY | 2025-05-24 08:36 | XMS_ITS | Encounter Summary ---
Author Organization [facility] Address [address] [place] [address] Care Team Providers Care Inspector Multifocal Lens Name Role Phone Scot Owen MD Primary Care Provider Unavailable Lukas Bradford MD Primary Care Provider Jan Juárez DO Primary Care Provider UnavailLane Banerjee MD Unavailable Unavailable Beti Greenwood MD Unavailable Juani Rhodes NP Unavailable [phone] Letitia Khalil MD Primary Care Provider Un available [facility], Pcp Primary Care Provider Unavailabl e Encounter Details Date Type Department Care Team Description 08/08/2020 Pt. Non Urgent Medic al Question Adult Medicine - [address] [address] Scot Owen MD Social History Tobacco Use [...] Notes * Katia Arroyo L.P.N. - 08/11/2020 9:30 AM ESTFrom: Neha Wright To: Scot Owen MD Sent: 08/08/2020 6:24 PM EST Subject: prescription I have to picker / packer a prescription are you still open in [place]? I hope i don't have to go to [place]. Please let me know tracee. thank you neha Wright documented in this encounter Plan of Treatment Not on file documented as of this encounter Visit Diagnoses Not on filedocumented in this encounter Care Teams Inspector Multifocal Lens Relationship Specialty Start Date End Date Scot Owen MD PCP - General Internal Medicine 01/23/1606/30/21 Lukas Bradford MD PCP - General Internal Medicine 07/01/21 08/10/21 Ahmed, Khadiga, DO PCP - General Internal Medicine 08/11/21 11/16/23 Letitia Khalil MD [address] [facility] [place] [address] PCP - General Internal Medicine 11/17/23 06/21/24 [facility], Pcp [address] [facility] [place] [address] PCP - General Internal Medicine 06/22/24 Lane Valdes MD Specialist Cardiovascular Disease 01/14/22 Beti Greenwood MD [address] [facility] [place] [address] UROGYNECOLOGY 07/07/23 Juani Rhodes, ISAC [address] [facility] [place] [address] Cardiology 07/07/23 documented as of this encounter
--- OUTSIDE RECORDS SUMMARY | 2025-05-24 08:36 | XMS_ITS | Encounter Summary ---
Author Organization [facility] Address [address] [place] [address] Care Team Providers Care Financial Recruiter Name Role Phone Samuel Cornelius Primary Care Provider Kristina Gilbert MD Primary Care Provider UnavailScot Hansen MD Primary Care Provider Unavailable Lukas Bradford MD Primary Care Provider Jan Juárez DO Primary Care Provider Unavaila Lane Villalobos MD Unavailable Unavailable Beti Greenwood MD Unavailable Juani Rhodes NP Unavailable [phone] Letitia Khalil MD Primary Care Provider Un available [facility], Pcp Primary Care Provider Unavailabl e Encounter Details Date Type Department Care Team Description 10/10/2014 [facility] Medical Records [address] [place] [address] Abstract, Provider Social History Tobacco Use Types [...] often do you attend chur ch or jain services? Never 07/12/2023 Do you [...] on filedocumented in this encounter Care Teams Financial Recruiter Relationship Specialty Start Date End Date Samuel Cornelius PCP - General 08/29/05 12/24/15 Kristina Chatman MD PCP - General Internal Medicine 12/25/15 01/22/16 Scot Owen MD PCP - General Internal Medicine 01/23/1606/30/21 Lukas Bradford MD PCP - General Internal Medicine 07/01/21 08/10/21 Jan Palomino DO PCP - General Internal Medicine 08/11/21 11/16/23 Letitia Khalil MD [address] [place], [place] [address] [address] PCP - General Internal Medicine 11/17/23 06/21/24 [facility], Pcp [address] [place] [address] [place] [address] PCP - General Internal Medicine 06/22/24 Lane Valdes MD Specialist Cardiovascular Disease 01/14/22 Beti Greenwood MD [address] [facility] [place] [address] UROGYNECOLOGY 07/07/23 Juani Rhodes NP [address] [facility] [place]ne[facility] [place] [address] Cardiology 07/07/23 documented as of this encounter
--- OUTSIDE RECORDS SUMMARY | 2025-05-24 08:36 | XMS_ITS | Encounter Summary ---
Author Organization [facility] Address [address] [place] [address] Care Team Providers Care Business Analytics Intern Name Role Phone Scot Owen MD Primary Care Provider Unavailable Lukas Bradford MD Primary Care Provider Jan Juárez DO Primary Care Provider UnavailLane Banerjee MD Unavailable Unavailable Beti Greenwood MD Unavailable Juani Rhodes NP Unavailable [phone] Letitia Khalil MD Primary Care Provider Un available [facility], Pcp Primary Care Provider Unavailabl e Encounter Details Date Type Department Care Team Description 09/19/2020 Telephone Adult Medicine - [address] [address] Scot Owen MD Social History Tobacco Use [...] on filedocumented in this encounter Care Teams Business Analytics Intern Relationship Specialty Start Date End Date Scot Owen MD PCP - General Internal Medicine 01/23/1606/30/21 Lukas Bradford MD PCP - General Internal Medicine 07/01/21 08/10/21 Jan Palomino DO PCP - General Internal Medicine 08/11/21 11/16/23 Letitia Khalil MD [address] [place] [address] [place] [address] PCP - General Internal Medicine 11/17/23 06/21/[address] [place] [address] PCP - General Internal Medicine 06/22/24 Lane Valdes MD Specialist Cardiovascular Disease 01/14/22 Beti Greenwood MD [address] [place] [address] [place] [address] UROGYNECOLOGY 07/07/23 Juani Rhodes NP [address] [place] [address] [place] [address] Cardiology 07/07/23 documented as of this encounter
--- OUTSIDE RECORDS SUMMARY | 2025-05-24 08:36 | XMS_ITS | Encounter Summary ---
Author Organization [facility] Address [address] [place] [address] Care Team Providers Care Valuation Consultant Name Role Phone Jan Palomino DO Primary Care Provider UnavailLane Banerjee MD Unavailable Unavailable Beti Greenwood MD Unavailable Juani Rhodes NP Unavailable [phone] Letitia Khalil MD Primary Care Provider Un available [facility], Pcp Primary Care Provider Unavailabl e Encounter Details Date Type Department Care Team Description 11/29/2022 Pt. Non Urgent Medic al Question Adult Medicine - [address] [address] Jan Palomino DO Social History Tobacco Use [...] encounter Miscellaneous Notes * Telephone Encounter - Ninfa Joyner L.P.N. - 11/29/2022 1:24 PM EDTFrom: Neha Aguilarours To: Jyoti Palomino Sent: 11/29/2022 1:10 PM EDT Subject: Privacy I noticed on my medical chart it says i was abusing percocet and alcohol.. It says my mother went to my doctor and made these claims.. They were false.She didn't have permission to go to my doctor and spread lies.. Where in my chart was it ever proven that i did that. My mother was mentally ill andmy brother's had restraining orders on her..This is slander.. I have spoken to an real estate attorney friend of mine and she advised me to tell you to take it off my records.. Thank you documented in this encounter Plan of Treatment Not on file documented as of this encounter Visit Diagnoses Not on filedocumented in this encounter Care Teams Valuation Consultant Relationship Specialty Start Date End Date Jan Palomino DO PCP - General Internal Medicine 08/11/21 11/16/23 Letitia Khalil MD [address] [facility] [place] [address] PCP - General Internal Medicine 11/17/23 06/21/24 [facility], Pcp [address] [place] [address] PCP - General Internal Medicine 06/22/24 Lane Valdes MD Specialist Cardiovascular Disease 01/14/22 Beti Greenwood MD [address] [facility] [place] [address] UROGYNECOLOGY 07/07/23 Juani Rhodes NP [address] [place] [address] Cardiology 07/07/23 documented as of this encounter
--- OUTSIDE RECORDS SUMMARY | 2025-05-24 08:36 | XMS_ITS | Encounter Summary ---
Author Organization [facility] Address [address] [place] [address] Care Team Providers Care Division Supervisor Name Role Phone Jan Palomino DO Primary Care Provider UnavailLane Banerjee MD Unavailable Unavailable Beti Greenwood MD Unavailable Juani Rhodes NP Unavailable [phone] Letitia Khalil MD Primary Care Provider Un available [facility], Pcp Primary Care Provider Unavailabl e Encounter Details Date Type Department Care Team Description 11/29/2022 Pt. Non Urgent Medic al Question Adult Medicine - [address] [address] Jan Palomino DO Social History Tobacco Use [...] How often do you attend chur or muslim services? Never 07/12/2023 Do you belong to any clubs o r organizations such as christianity groups, unions, fraternal or athletic groups, or [...] on filedocumented in this encounter Care Teams Division Supervisor Relationship Specialty Start Date End Date Jan Palomino, PCP - General Internal Medicine 08/11/21 11/16/23 Letitia Khalil MD [address] [place] [address] [place] [address] PCP - General Internal Medicine 11/17/23 06/21/24 [facility], [address] [place] [address] PCP - General Internal Medicine 06/22/24 Lane Valdes MD Specialist Cardiovascular Disease 01/14/22 Beti Greenwood MD [address] [place] [address] [place] [address] UROGYNECOLOGY 07/07/23 Juani Rhodes NP [address] [facility] [place] [address] Cardiology 07/07/23 documented as of this encounter
--- OUTSIDE RECORDS SUMMARY | 2025-05-24 08:36 | XMS_ITS | Encounter Summary ---
Author Organization [facility] [employer] [facility] Address [address] [place] [address] Care Team Providers Care Cross Roller Name Role Phone Samuel Cornelius Primary Care Provider Kristina Gilbert MD Primary Care Provider UnavailScot Hansen MD Primary Care Provider Unavailable Lukas Bradford MD Primary Care Provider Jan Juárez DO Primary Care Provider Unavaila Lane Villalobos MD Unavailable Unavailable Beti Greenwood MD Unavailable Juani Rhodes NP Unavailable [phone] Letitia Khalil MD Primary Care Provider Un available [facility], Pcp Primary Care Provider Unavailabl e Encounter Details Date Type Department Care Team Description 04/03/2010 Controlled Substance Contract with [facility] Medical Records [address] [place] [id number] Abstract, Provider Social History Tobacco Use Types [...] on filedocumented in this encounter Care Teams Cross Roller Relationship Specialty Start Date End Date Samuel Cornelius PCP - General 08/29/05 12/24/15 Kristina Chatman MD PCP - General Internal Medicine 12/25/15 01/22/16 Scot Owen MD PCP - General Internal Medicine 01/23/1606/30/21 Lukas Bradford MD PCP - General Internal Medicine 07/01/21 08/10/21 Jan Palomino DO PCP - General Internal Medicine 08/11/21 11/16/23 Letitia Khalil MD [address] [place] [address] [place] [address] PCP - General Internal Medicine 11/17/23 06/21/24 [facility], Pcp [address] [place] [address] [place] [address] PCP - General Internal Medicine 06/22/24 Lane Valdes MD Specialist Cardiovascular Disease 01/14/22 Beti Greenwood MD [address] [facility] [place] [address] UROGYNECOLOGY 07/07/23 Juani Rhodes NP [address] [facility] [place] [address] Cardiology 07/07/23 documented as of this encounter
--- OUTSIDE RECORDS SUMMARY | 2025-05-24 08:37 | XMS_ITS | Encounter Summary ---
Author Organization [facility] Address [address] [place] [address] Care Team Providers Care Tier Truck Driver Name Role Phone Scot Owen MD Primary Care Provider Unavailable Lukas Bradford MD Primary Care Provider Jan Juárez DO Primary Care Provider UnavailLane Banerjee MD Unavailable Unavailable Beti Greenwood MD Unavailable Juani Rhodes NP Unavailable [phone] Letitia Khalil MD Primary Care Provider Un available [facility], Pcp Primary Care Provider Unavailabl e Encounter Details Date Type Department Care Team Description 11/09/2019 [facility] Medical Records [address] [place] [address] Abstract, Provider Social History Tobacco Use Types [...] any clubs o r organizations such as presybeterian groups, unions, fraternal or athletic groups, or [...] on filedocumented in this encounter Care Teams Tier Truck Driver Relationship Specialty Start Date End Date Scot Owen MD PCP - General Internal Medicine 01/23/1606/30/21 Lukas Bradford MD PCP - General Internal Medicine 07/01/21 08/10/21 Jan Palomino DO PCP - General Internal Medicine 08/11/21 11/16/23 Letitia Khalil MD [address] [place] [address] [place] [address] PCP - General Internal Medicine 11/17/23 06/21/24 [facility], Pcp [address] [place] [address] [facility] [place] [address] PCP - General Internal Medicine 06/22/24 Lane Valdes MD Specialist Cardiovascular Disease 01/14/22 Beti Greenwood MD [address] [place] [address] [facility]necolog[facility] [place] [address] UROGYNECOLOGY 07/07/23 Juani Rhodes, IASC 444 [facility] [place] [address] Cardiology 07/07/23 documented as of this encounter
--- OUTSIDE RECORDS SUMMARY | 2025-05-24 08:37 | XMS_ITS | Encounter Summary ---
Author Organization [facility] Address [address] [place] [address] Care Team Providers Care Insurance Sales Manager Name Role Phone Samuel Cornelius Primary Care Provider Kristina Gilbert MD Primary Care Provider UnavailScot Hansen MD Primary Care Provider Unavailable Lukas Bradford MD Primary Care Provider Jan Juárez DO Primary Care Provider Unavaila Lane Villalobos MD Unavailable Unavailable Beti Greenwood MD Unavailable Juani Rhodes NP Unavailable [phone] Letitia Khalil MD Primary Care Provider Un available [facility], Pcp Primary Care Provider Unavailabl e Reason for Visit * Reason Onset Date Comments Medication 04/05/2014 Encounter Details Date Type Department Care Team Description 04/05/2014 Telephone Adult Medicine - [address] [address] Samuel Cornelius Medication Social History Tobacco Use [...] any clubs o r organizations such as adventism groups, unions, fraternal or athletic groups, or [...] PM EDT Pt calling stating Dr.azimov [place] [facility]. Prescribed oxycodone 10-325 mg to pt. Pt is concerned because she is on a contract with Dr. Cornelius. Please advise. documented in this encounter Plan of Treatment Not on file documented as of this encounter Visit Diagnoses Not on filedocumented in this encounter Care Teams Insurance Sales Manager Relationship Specialty Start Date End Date Samuel Cornelius PCP - General 08/29/05 12/24/15 Kristina Chatman MD PCP - General Internal Medicine 12/25/15 01/22/16 Scot Owen MD PCP - General Internal Medicine 01/23/1606/30/21 Lukas Bradford MD PCP - General Internal Medicine 07/01/21 08/10/21 Jan Palomino DO PCP - General Internal Medicine 08/11/21 11/16/23 Letitia Khalil MD [address] [facility] [place] [address] PCP - General Internal Medicine 11/17/23 06/21/24 [facility], [address] [place] [address] PCP - General Internal Medicine 06/22/24 Lane Valdes MD Specialist Cardiovascular Disease 01/14/22 Beti Greenwood MD [address] [facility] [place] [address] UROGYNECOLOGY 07/07/23 Juani Rhodes NP [address] [facility] [place] [address] Cardiology 07/07/23 documented as of this encounter
--- OUTSIDE RECORDS SUMMARY | 2025-05-24 08:37 | XMS_ITS | Encounter Summary ---
Author Organization [facility] Address [address] [place] [address] Care Team Providers Care Round Kiln Drawer Name Role Phone Scot Owen MD Primary Care Provider Unavailable Lukas Bradford MD Primary Care Provider Jan Juárez DO Primary Care Provider UnavailLane Banerjee MD Unavailable Unavailable Beti Greenwood MD Unavailable Juani Rhodes NP Unavailable [phone] Letitia Khalil MD Primary Care Provider Un available [facility], Pcp Primary Care Provider Unavailabl e Encounter Details Date Type Department Care Team Description 01/31/2020 [facility] Medical Records [address] [place] [address] Abstract, Provider Social History Tobacco Use Types [...] How often do you attend chur or holiness services? Never 07/12/2023 Do you [...] on filedocumented in this encounter Care Teams Round Kiln Drawer Relationship Specialty Start Date End Date Scot Owen MD PCP - General Internal Medicine 01/23/1606/30/21 Lukas Bradford MD PCP - General Internal Medicine 07/01/21 08/10/21 Jan Palomino DO PCP - General Internal Medicine 08/11/21 11/16/23 Letitia Khalil MD [address] [place] [address] [facility] [place] [address] PCP - General Internal Medicine 11/17/23 06/21/24 [facility], Pcp [address] [place] [address] [facility] [place] [address] PCP - General Internal Medicine 06/22/24 Lane Valdes MD Specialist Cardiovascular Disease 01/14/22 Beti Greenwood MD [address] [place] [address] UrogynecologOur [facility] [place] [address] UROGYNECOLOGY 07/07/23 Juani Rhodes, ISAC [address] [facility] [place] [address] Cardiology 07/07/23 documented as of this encounter
--- OUTSIDE RECORDS SUMMARY | 2025-05-24 08:37 | XMS_ITS | Encounter Summary ---
Author Organization [facility] Address [address] [place] [address] Care Team Providers Care R D Internship Name Role Phone AshliAlexel Abebe Primary Care Provider UnaKristina Herrera MD Primary Care Provider UnavailScot Hansen MD Primary Care Provider Unavailable Lukas Bradford MD Primary Care Provider Jan Juárez DO Primary Care Provider Unavaila Lane Villalobos MD Unavailable Unavailable Beti Greenwood MD Unavailable Juani Rhodes NP Unavailable [phone] Letitia Khalil MD Primary Care Provider Un available [facility], Pcp Primary Care Provider Unavailabl e Encounter Details Date Type Department Care Team Description 04/05/2014 Pt. Non Urgent Medic al Question Physiatry - [address] [address] Niels Jackson DO Lumbago Social History Tobacco [...] Lumbago documented in this encounter Care Teams R D Internship Relationship Specialty Start Date End Date Samuel Cornelius PCP - General 08/29/05 12/24/15 Kristina Chatman MD PCP - General Internal Medicine 12/25/15 01/22/16 Scot Owen MD PCP - General Internal Medicine 01/23/1606/30/21 Lukas Bradford MD PCP - General Internal Medicine 07/01/21 08/10/21 Jan Palomino DO PCP - General Internal Medicine 08/11/21 11/16/23 Letitia Khalil MD [address] [place] [address] T[place]HA [place] [address] PCP - General Internal Medicine 11/17/23 06/21/24 [facility], [address] [place] [address] PCP - General Internal Medicine 06/22/24 Lane Valdes MD Specialist Cardiovascular Disease 01/14/22 Beti Greenwood MD 444 [facility] [place] [address] UROGYNECOLOGY 07/07/23 Juani Rhodes NP 444 [facility] [place] [address] Cardiology 07/07/23 documented as of this encounter
--- OUTSIDE RECORDS SUMMARY | 2025-05-24 08:37 | XMS_ITS | Encounter Summary ---
Author Organization [facility] Address [address] [place] [address] Care Team Providers Care Yard Attendant Name Role Phone Scot Owen MD Primary Care Provider Unavailable Lukas Bradford MD Primary Care Provider Jan Juárez DO Primary Care Provider UnavailLane Banerjee MD Unavailable Unavailable Beti Greenwood MD Unavailable Juani Rhodes NP Unavailable [phone] Letitia Khalil MD Primary Care Provider Un available [facility], Pcp Primary Care Provider Unavailabl e Encounter Details Date Type Department Care Team Description 12/31/2019 Pt. Non Urgent Medic al Question Adult Medicine - [address] [address] Scot Owen MD Social History Tobacco Use [...] on filedocumented in this encounter Care Teams Yard Attendant Relationship Specialty Start Date End Date Scot Owen MD PCP - General Internal Medicine 01/23/1606/30/21 Lukas Bradford MD PCP - General Internal Medicine 07/01/21 08/10/21 Jan Palomino DO PCP - General Internal Medicine 08/11/21 11/16/23 Letitia Khalil MD [address] [place] [address] UrogynecologCaldwell [place] [address] PCP - General Internal Medicine 11/17/23 06/21/24 Ronit, Pcp [address] [place], [place] [address] [place] [address] PCP - General Internal Medicine 06/22/24 Lane Valdes MD Specialist Cardiovascular Disease 01/14/22 Beti Greenwood MD [address] [place], [place] [address] [place] [address] UROGYNECOLOGY 07/07/23 Juani Rhodes, ISAC [address] [facility] [place] [address] Cardiology 07/07/23 documented as of this encounter
--- OUTSIDE RECORDS SUMMARY | 2025-05-24 08:38 | XMS_ITS | Encounter Summary ---
Author Organization [facility] Address [address] [place] [address] Care Team Providers Care Lead Generation Marketing Manager Name Role Phone Samuel Cornelius Primary Care Provider UnaKristina Herrera MD Primary Care Provider UnavailScot Hansen MD Primary Care Provider Unavailable Lukas Bradford MD Primary Care Provider Jan Juárez DO Primary Care Provider Unavaila Lane Villalobos MD Unavailable Unavailable Beti Greenwood MD Unavailable Juani Rhodes NP Unavailable [phone] Letitia Khalil MD Primary Care Provider Un available [facility], Pcp Primary Care Provider Unavailabl e Encounter Details Date Type Department Care Team Description 03/13/2014 Pt. Non Urgent Medical Question Adult Medicine - [address] [address] Samuel Cornelius Social History Tobacco Use Types [...] often do you attend chur ch or uatsdin services? Never 07/12/2023 Do you belong to any clubs o r organizations such as mosque groups, unions, fraternal or athletic groups, or [...] filedocumented in this encounter Care Teams Lead Generation Marketing Manager Relationship Specialty Start Date End Date Samuel Cornelius PCP - General 08/29/05 12/24/15 Kristina Chatman MD PCP - General Internal Medicine 12/25/15 01/22/16 Scot Owen MD PCP - General Internal Medicine 01/23/1606/30/21 Lukas Bradford MD PCP - General Internal Medicine 07/01/21 08/10/21 Jan Palomino DO PCP - General Internal Medicine 08/11/21 11/16/23 Letitia Khalil MD [facility] [place] [address] PCP - General Internal Medicine 11/17/23 06/21/24 [facility], Pcp [address] [place] [address] [place] [address] PCP - General Internal Medicine 06/22/24 Lane Valdes MD Specialist Cardiovascular Disease 01/14/22 Beti Greenwood MD [address] [place] [address] [place] [address] UROGYNECOLOGY 07/07/23 Juani Rhodes NP [address] [facility] [place] [address] Cardiology 07/07/23 documented as of this encounter
--- OUTSIDE RECORDS SUMMARY | 2025-05-24 08:38 | XMS_ITS | Encounter Summary ---
Author Organization [facility] Address [address] [place] [address] Care Team Providers Care Sanitation Worker Cleaning Equipment Name Role Phone Jan Palomino DO Primary Care Provider Unavaila Beti Soto MD Unavailable Juani Rhodes NP Unavailable [phone] Letitia Khalil MD Primary Care Provider Un available [facility], Pcp Primary Care Provider Unavailabl e Encounter Details Date Type Department Care Team Description 09/05/2023 Occupational Health Nurse Manager Report Medical Records [address] [place] [address] Dilcia Meadows NP Social History Tobacco Use [...] often do you attend chur ch or moravian services? Never 07/12/2023 Do you belong to any clubs o r organizations such as uatsdin groups, unions, fraternal or athletic groups, or [...] on filedocumented in this encounter Care Teams Sanitation Worker Cleaning Equipment Relationship Specialty Start Date End Date Jan Palomino, PCP - General Internal Medicine 08/11/21 11/16/23 Letitia Khalil MD [address] [place] [address] [place] [address] PCP - General Internal Medicine 11/17/23 06/21/24 [facility], Pcp [address] [place] [address] PCP - General Internal Medicine 06/22/24 Beti Greenwood MD [address] [place], [place] [address] [address] UROGYNECOLOGY 07/07/23 Juani Rhodes NP [address] [facility] [place] [address] Cardiology 07/07/23 documented as of this encounter
--- OUTSIDE RECORDS SUMMARY | 2025-05-24 08:38 | XMS_ITS | Encounter Summary ---
Author Organization [facility] Address [address] [place] [address] Care Team Providers Care Underwater Hunter Name Role Phone Scot Owen MD Primary Care Provider Unavailable Lukas Bradford MD Primary Care Provider Jan Juárez DO Primary Care Provider UnavailLane Banerjee MD Unavailable Unavailable Beti Greenwood MD Unavailable Juani Rhodes NP Unavailable [phone] Letitia Khalil MD Primary Care Provider Un available [facility], Pcp Primary Care Provider Unavailabl e Encounter Details Date Type Department Care Team Description 02/16/2016 Pt. Non Urgent Medical Question Adult Medicine - [address] [address] Samuel Cornelius Social History Tobacco Use Types [...] often do you attend chur ch or adventist services? Never 07/12/2023 Do you [...] as of this encounter Progress Notes * Dayana Pickering M.A. - 02/16/2016 4:51 PM EDTFrom: Neha Wright To: Samuel Cornelius MD Sent: 02/16/2016 4:49 PM EDT Subject: Contract Dr Cornelius, I am very mad. I have been told by every back surgeon i have seen, that there is nothing that can be done . The only way to help the pain is with medication. After your conversation with my mother no wants to take over my contract. My mother has been taken out of her home many times and committed. against her will. She has been diagnosed as a pyschopath. I feel as if you didn't express the need for my pain management. I wasn't even there to defend myself. The dr's all think i'm an alcoholic and suicidal. Would you please correct this problem for me? Thank You, Neha Wright documented in this encounter Plan of Treatment Not on file documented as of this encounter Visit Diagnoses Not on filedocumented in this encounter Care Teams Underwater Hunter Relationship Specialty Start Date End Date Scot Owen MD PCP - General Internal Medicine 01/23/1606/30/21 Lukas Bradford MD PCP - General Internal Medicine 07/01/21 08/10/21 Jan Palomino DO PCP - General Internal Medicine 08/11/21 11/16/23 Letitia Khalil MD [address] [place] [address] [place] [address] PCP - General Internal Medicine 11/17/23 06/21/24 [facility], Pcp [address] [place] [address] [place] [address] PCP - General Internal Medicine 06/22/24 Lane Valdes MD Specialist Cardiovascular Disease 01/14/22 Beti Greenwood MD [address] [place] [address] UROGYNECOLOGY 07/07/23 Juani Rhodes, ISAC 4 [facility] [place] [address] Cardiology 07/07/23 documented as of this encounter
--- OUTSIDE RECORDS SUMMARY | 2025-05-24 08:38 | XMS_ITS | Encounter Summary ---
Author Organization [facility] Address [address] [place] [address] Care Team Providers Care Dressmaker Or Tailor Name Role Phone Scot Owen MD Primary Care Provider Unavailable Lukas Bradford MD Primary Care Provider Jan Juárez DO Primary Care Provider UnavailLane Banerjee MD Unavailable Unavailable Beti Greenwood MD Unavailable Juani Rhodes NP Unavailable [phone] Letitia Khalil MD Primary Care Provider Un available [facility], Pcp Primary Care Provider Unavailabl e Encounter Details Date Type Department Care Team Description 10/06/2019 Refill Adult Medicine - [address] [address] Scot Owen MD Social History Tobacco Use [...] on filedocumented in this encounter Care Teams Dressmaker Or Tailor Relationship Specialty Start Date End Date Scot Owen MD PCP - General Internal Medicine 01/23/1606/30/21 Lukas Bradford MD PCP - General Internal Medicine 07/01/21 08/10/21 Jan Palomino DO PCP - General Internal Medicine 08/11/21 11/16/23 Letitia Khalil MD [address] [place] [address] [place] [address] PCP - General Internal Medicine 11/17/23 06/21/24 [facility] Pcp [address] [place] [address] [place] [address] PCP - General Internal Medicine 06/22/24 Lane Valdes MD Specialist Cardiovascular Disease 01/14/22 Beti Greenwood MD [address] [place] [address] [place] [address] UROGYNECOLOGY 07/07/23 Juani Rhodes NP 4 [facility] [place] [address] Cardiology 07/07/23 documented as of this encounter
--- OUTSIDE RECORDS SUMMARY | 2025-05-24 08:38 | XMS_ITS | Encounter Summary ---
[facility] Address [address] [place] [address] Care Team Providers Care Mandolin Repairer Name Role Phone Scot Owen MD Primary Care Provider Unavailable Lukas Bradford MD Primary Care Provider Jan Juárez DO Primary Care Provider UnavailLane Banerjee MD Unavailable Unavailable Beti Greenwood MD Unavailable Juani Rhodes NP Unavailable [phone] Letitia Khalil MD Primary Care Provider Un available [facility], Pcp Primary Care Provider Unavailabl e Encounter Details Date Type Department Care Team Description 06/05/2019 [facility] Medical Records [address] [place] [address] Abstract, Provider Social History Tobacco Use Types [...] on filedocumented in this encounter Care Teams Mandolin Repairer Relationship Specialty Start Date End Date Scot Owen MD PCP - General Internal Medicine 01/23/1606/30/21 Lukas Bradford MD PCP - General Internal Medicine 07/01/21 08/10/21 Jan Palomino DO PCP - General Internal Medicine 08/11/21 11/16/23 Letitia Khalil MD [address] [place] [address] [place] [address] PCP - General Internal Medicine 11/17/23 06/21/24 [facility], Pcp [address] [place] [address] UrogynecologHighlands ARH Regional [place] [address] PCP - General Internal Medicine 06/22/24 Lane Valdes MD Specialist Cardiovascular Disease 01/14/22 Beti Greenwood MD [address] [place] [address] UrogynecologHighlands ARH Regional [place] [address] UROGYNECOLOGY 07/07/23 Juani Rhodes, ISAC 444 [facility] [place] [address] Cardiology 07/07/23 documented as of this encounter
--- OUTSIDE RECORDS SUMMARY | 2025-05-24 08:38 | XMS_ITS | Encounter Summary ---
Author Organization [facility] Address [address] [place] [address] Care Team Providers Care Obstetrics Technician Name Role Phone Scot Owen MD Primary Care Provider Unavailable Lukas Bradford MD Primary Care Provider Jan Juárez DO Primary Care Provider UnavailLane Banerjee MD Unavailable Unavailable Beti Greenwood MD Unavailable Juani Rhodes NP Unavailable [phone] Letitia Khalil MD Primary Care Provider Un available [facility], Pcp Primary Care Provider Unavailabl e Encounter Details Date Type Department Care Team Description 06/22/2019 [facility] Medical Records [address] [place] [address] Abstract, Provider Social History Tobacco Use Types [...] on filedocumented in this encounter Care Teams Obstetrics Technician Relationship Specialty Start Date End Date Scot Owen MD PCP - General Internal Medicine 01/23/1606/30/21 Lukas Bradford MD PCP - General Internal Medicine 07/01/21 08/10/21 Jan Palomino DO PCP - General Internal Medicine 08/11/21 11/16/23 Letitia Khalil MD [address] [place] [address] UrogynecologOhio[facility] [place] [address] PCP - General Internal Medicine 11/17/23 06/21/24 [facility], Pcp [address] [place] [address] UrogynecologOur Lady of [place] [address] PCP - General Internal Medicine 06/22/24 Lane Valdes MD Specialist Cardiovascular Disease 01/14/22 Beti Greenwood MD [address] [place] [address] UrogynecologOur Lady of [place] [address] UROGYNECOLOGY 07/07/23 Juani Rhodes, ISAC 444 [facility] [place] [address] Cardiology 07/07/23 documented as of this encounter
--- OUTSIDE RECORDS SUMMARY | 2025-05-24 08:38 | XMS_ITS | Encounter Summary ---
Author Organization [facility] Address [address] [place] [address] Care Team Providers Care House Decorator Name Role Phone Scot Owen MD Primary Care Provider Unavailable Lukas Bradford MD Primary Care Provider Jan Juárez DO Primary Care Provider UnavailLane Banerjee MD Unavailable Unavailable Beti Greenwood MD Unavailable Juani Rhodes NP Unavailable [phone] Letitia Khalil MD Primary Care Provider Un available [facility], Pcp Primary Care Provider Unavailabl e Encounter Details Date Type Department Care Team Description 07/20/2019 [facility] Medical Records [address] [place] [address] Abstract, Provider Social History Tobacco Use Types [...] on filedocumented in this encounter Care Teams House Decorator Relationship Specialty Start Date End Date Scot Owen MD PCP - General Internal Medicine 01/23/1606/30/21 Lukas Bradford MD PCP - General Internal Medicine 07/01/21 08/10/21 Jan Palomino DO PCP - General Internal Medicine 08/11/21 11/16/23 Letitia Khalil MD [address] [place] [address] [place] [address] PCP - General Internal Medicine 11/17/23 06/21/24 [facility], Pcp [address] [place] [address] UrogynecologSaint [place] [address] PCP - General Internal Medicine 06/22/24 Lane Valdes MD Specialist Cardiovascular Disease 01/14/22 Beti Greenwood MD [address] [place] [address] UrogynecologSaint [place] [address] UROGYNECOLOGY 07/07/23 Juani Rhodes, ISAC 444 [facility] [place] [address] Cardiology 07/07/23 documented as of this encounter
--- OUTSIDE RECORDS SUMMARY | 2025-05-24 08:38 | XMS_ITS | Encounter Summary ---
Author Organization [facility] Address [address] [place] [address] Care Team Providers Care Career Technology Teacher Name Role Phone Jan Palomino DO Primary Care Provider UnavailBeti Garcia MD Unavailable Juani Rhodes NP Unavailable [phone] Letitia Khalil MD Primary Care Provider Un available [facility], Pcp Primary Care Provider Unavailabl e Encounter Details Date Type Department Care Team Description 07/13/2023 Telephone Adult Medicine - [address] [address] Jan Palomino DO Social History Tobacco Use [...] often do you attend chur ch or amish services? Never 07/12/2023 Do you belong to [...] on filedocumented in this encounter Care Teams Career Technology Teacher Relationship Specialty Start Date End Date Jan Palomino DO PCP - General Internal Medicine 08/11/21 11/16/23 Letitia Khalil MD [address] [facility] [place] [address] PCP - General Internal Medicine 11/17/23 06/21/24 [facility] Pcp [facility] [place] [address] PCP - General Internal Medicine 06/22/24 Beti Greenwood MD 444 [facility] [place]Nov[place] [address] UROGYNECOLOGY 07/07/23 Juani Rhodes, ISAC 444 [facility] [place] [address] Cardiology 07/07/23 documented as of this encounter
--- OUTSIDE RECORDS SUMMARY | 2025-05-24 08:38 | XMS_ITS | Encounter Summary ---
Author Organization [facility] Address [address] [place] [address] Care Team Providers Care Tailman Name Role Phone Beti Greenwood MD Unavailable Juani Rhodes NP Unavailable Letitia Khalil MD Primary Care Provider Un available [facility], Pcp Primary Care Provider Unavailabl e Encounter Details Date Type Department Care Team Description 12/02/2023 Rn Recovery Report Medical Records [address] [place] [address] Gumaro Vazquez MD Social History Tobacco Use [...] on filedocumented in this encounter Care Teams Tailman Relationship Specialty Start Date End Date Letitia Khalil MD 444 [facility]gynecologFirelands [place] [address] PCP - General Internal Medicine 11/17/23 06/21/24 [facility], Pcp [facility]At[facility] [place] [address] PCP - General Internal Medicine 06/22/24 Beti Greenwood MD 444 [facility] [place] [address] UROGYNECOLOGY 07/07/23 Juani Rhodes NP 444 [facility]gynecologFirelands [place] [address] Cardiology 07/07/23 documented as of this encounter
--- OUTSIDE RECORDS SUMMARY | 2025-05-24 08:38 | XMS_ITS | Encounter Summary ---
Author Organization [facility] Address [address] [place] [address] Care Team Providers Care Pleat Taper Name Role Phone Scot Owen MD Primary Care Provider Unavailable Lukas Bradford MD Primary Care Provider Jan Juárez DO Primary Care Provider UnavailLane Banerjee MD Unavailable Unavailable Beti Greenwood MD Unavailable Juani Rhodes NP Unavailable [phone] Letitia Khalil MD Primary Care Provider Un available [facility], Pcp Primary Care Provider Unavailabl e Encounter Details Date Type Department Care Team Description 02/16/2016 Pt. Non Urgent Medical Question Adult Medicine - [address] [address] Samuel Cornelius Social History Tobacco Use Types [...] on filedocumented in this encounter Care Teams Pleat Taper Relationship Specialty Start Date End Date Scot Owen MD PCP - General Internal Medicine 01/23/1606/30/21 Lukas Bradford MD PCP - General Internal Medicine 07/01/21 08/10/21 Jan Palomino DO PCP - General Internal Medicine 08/11/21 11/16/23 Letitia Khalil MD [address] [place] [address] [place] [address] PCP - General Internal Medicine 11/17/23 06/21/24 [facility], [address] [place] [address] PCP - General Internal Medicine 06/22/24 Lane Valdes MD Specialist Cardiovascular Disease 01/14/22 Beti Greenwood MD 4 [facility] [place] [address] UROGYNECOLOGY 07/07/23 Juani Rhodes, ISAC 4 [facility] [place] [address] Cardiology 07/07/23 documented as of this encounter
--- OUTSIDE RECORDS SUMMARY | 2025-05-24 08:38 | XMS_ITS | Encounter Summary ---
Author Organization [facility] Address [address] [place] [address] Care Team Providers Care Calender Let Off Operator Name Role Phone Scot Owen MD Primary Care Provider Unavailable Lukas Bradford MD Primary Care Provider Jan Juárez DO Primary Care Provider UnavailLane Banerjee MD Unavailable Unavailable Beti Greenwood MD Unavailable Juani Rhodes NP Unavailable [phone] Letitia Khalil MD Primary Care Provider Un available [facility], Pcp Primary Care Provider Unavailabl e Encounter Details Date Type Department Care Team Description 09/09/2019 Refill Adult Medicine - [address] [address] Scot Owen MD Social History Tobacco Use [...] on filedocumented in this encounter Care Teams Calender Let Off Operator Relationship Specialty Start Date End Date Scot Owen MD PCP - General Internal Medicine 01/23/1606/30/21 Lukas Bradford MD PCP - General Internal Medicine 07/01/21 08/10/21 Jan Palomino DO PCP - General Internal Medicine 08/11/21 11/16/23 Letitia Khalil MD [address] [facility] [place] [address] PCP - General Internal Medicine 11/17/23 06/21/24 [facility], Pcp [address] [address] [place] [address] PCP - General Internal Medicine 06/22/24 Lane Valdes MD Specialist Cardiovascular Disease 01/14/22 Beti Greenwood MD [facility] [place] [address] UROGYNECOLOGY 07/07/23 Juani Rhodes NP 4 [place] [address] Cardiology 07/07/23 documented as of this encounter
--- OUTSIDE RECORDS SUMMARY | 2025-05-24 08:38 | XMS_ITS | Encounter Summary ---
Author Organization [facility] Address [address] [place] [address] Care Team Providers Care Motion Picture Set Up Worker Name Role Phone Scot Owen MD Primary Care Provider Unavailable Lukas Bradford MD Primary Care Provider Jan Juárez DO Primary Care Provider UnavailLane Banerjee MD Unavailable Unavailable Beti Greenwood MD Unavailable Juani Rhoeds NP Unavailable Letitia Khalil MD Primary Care Provider Un available [facility], Pcp Primary Care Provider Unavailabl e Encounter Details Date Type Department Care Team Description 05/11/2019 [facility] [address] [place] [address] Abstract, Provider Social History Tobacco Use Types [...] How often do you attend chur or evangelical services? Never 07/12/2023 Do you [...] on filedocumented in this encounter Care Teams Motion Picture Set Up Worker Relationship Specialty Start Date End Date Scot Owen MD PCP - General Internal Medicine 01/23/1606/30/21 Lukas Bradford MD PCP - General Internal Medicine 07/01/21 08/10/21 Jan Palomino DO PCP - General Internal Medicine 08/11/21 11/16/23 Letitia Khalil MD [address] [place] [address] [facility] [place] [address] PCP - General Internal Medicine 11/17/23 06/21/24 [facility], Pcp [address] [place] [address] [facility] [place] [address] PCP - General Internal Medicine 06/22/24 Lane Valdes MD Specialist Cardiovascular Disease 01/14/22 Beti Greenwood MD [address] [place] [address] [facility] [place] [address] UROGYNECOLOGY 07/07/23 Juani Rhodes, ISAC [address] [facility] [place] [address] Cardiology 07/07/23 documented as of this encounter
--- OUTSIDE RECORDS SUMMARY | 2025-05-24 08:39 | XMS_ITS | Encounter Summary ---
Author Organization [facility] Address [address] [place] [address] Care Team Providers Care Furniture Polisher Name Role Phone Lukas Bradford MD Primary Care Provider Jan Juárez DO Primary Care Provider UnavailLane Banerjee MD Unavailable Unavailable Beti Greenwood MD Unavailable Juani Rhodes NP Unavailable [phone] Letitia Khalil MD Primary Care Provider Un available [facility], Pcp Primary Care Provider Unavailabl e Encounter Details Date Type Department Care Team Description 07/14/2021 Pt. Non Urgent Medic al Question Adult Medicine - [address] [address] Scot Owen MD Social History Tobacco Use [...] How often do you attend chur or mu-ism services? Never 07/12/2023 Do you [...] i keep [facility]? I have cancelled my appointment with Dr. Bradford ..She told me many dr's left and she won't accept my narcotics program. So what do i do for my refills? documented in this encounter Plan of Treatment Not on file documented as of this encounter Visit Diagnoses Not on filedocumented in this encounter Care Teams Furniture Polisher Relationship Specialty Start Date End Date Lukas Bradford MD PCP - General Internal Medicine 07/01/21 08/10/21 Jan Palomino DO PCP - General Internal Medicine 08/11/21 11/16/23 Letitia Khalil MD [address] [facility] [place] [address] PCP - General Internal Medicine 11/17/23 06/21/24 [facility], Pcp [address] [facility] [place] [address] PCP - General Internal Medicine 06/22/24 Lane Valdes MD Specialist Cardiovascular Disease 01/14/22 Beti Greenwood MD [address] [facility] [place] [address] UROGYNECOLOGY 07/07/23 Juani Rhodes, ISAC [address] [facility] [address] Cardiology 07/07/23 documented as of this encounter
--- OUTSIDE RECORDS SUMMARY | 2025-05-24 08:39 | XMS_ITS | Clinical Summary ---
Author Organization [facility] Address [address] [place] [address] Care Team Providers Care Soup Person Name Role Phone Beti Greenwood MD Unavailable Juani Rhodes NP Unavailable [phone] [facility], Pcp Primary Care Provider Unavailabl e Allergies Active Allergy Reactions Severity Noted Date Comments Amoxicillin Trihydrate Numbness, tinglin g or swelling of the lips, tongue or mouth 11/23/2005 Ciprofloxacin 06/07/2023 Eggs Rash/Dermatitis 11/23/2005 Gabapentin Hives/Urticaria 04/14/2018 Methocarbamol Runny Nose/Rhinitis 11/23/2005 Sulfacetamide Sodium Numbness, tingling or swelling of the lips, tongue or mouth 11/23/2005 Sulindac 06/09/2011 Zoloft Rash/Dermatitis 03/17/2017 Medications Medication Sig Dispensed Refills Start Date End Date Status oxycodone-acetamino phen (Percocet) 10-325 MG per tablet Take 1 tablet by mouth 4 times daily as needed for Pain for up to 28 days. 112 tablet 0 08/11/2021 Active estradiol (ESTRACE) 0.1 MG/GM vaginal cream Apply a pea-sized amount of cream with your finger into the vagina daily at bedtime for 2 weeks, then two times a week at night. 42.5 g 5 03/21/2023 Active Diclofenac Sodium 1 % Gel Apply 4 g topically 4 times daily for 30 days. 100 g 2 06/01/2024 Active diltiazem (CARDIZEM CD) 180 MG 24 hr capsule TAKE 1 CAPSULE BY MOUTH EVERY DAY 90 Capsule 0 06/11/2024 Active valacyclovir (VALTREX) 500 MG tablet Take 1 Tablet by mouth daily. 90 Tablet 1 06/14/2024 Active Active Problems Problem Noted Date Patient noncompliant with statin medicat ion 11/17/2023 Anxiety 11/17/2023 Preoperative cardiovascular examination 05/17/2023 Last Assessment & Plan: Patient's cardiac problems are optimized on current medical therapy. Patient's activity level represents greater than 4 METS. Patient does not require any further testing at this time. Using the HICKMAN cardiac risk assessment patient is at a 0.2% risk for perioperative myocardial infarction or cardiac arrest. Patient is at acceptable risk for the proposed surgical procedure. Thank you for including us in preoperative planning. Mitral valve prolapse 02/25/2022 Last Assessment & Plan: Patient reports that she has history of mitral valve prolapse however her most recent echocardiogram did not show any structural abnormalities. Cardiac function is normal. SVT (supraventricular tachycardia) 02/23 Last Assessment & Plan: Patient has history [...] she has any adverse symptoms. Hyperlipidemia 09/18/2020 Last Assessment & Plan: Patient's ASCVD risk is 8.7%. Her last LDL cholesterol was 134. She would have an increased benefit from being on statin therapy. She will continue to follow with her primary care provider. She will continue to work on diet and exercise. Colon, diverticulosis 04/18/2017 Depression 03/11/2017 Tobacco abuse 05/02/2015 Plantar fasciitis / calcaneal heel spur on L foot 07/14/2011 Overview: Dr. Jimenez- steroid injection, stretching De Quervain's Tenosynovitis on Left 11/27 Chronic pain syndrome 02/22/2007 Overview: 02/06- Mother feels that she abuses Percocet, takes them with alcohol - she's in trouble For procedures, requires high dose of sedation, and cannot use propofol because of egg allergy Diverticulosis of colon (without mention of hemorrhage) 04/07/2006 Depression with anxiety 02/02/2006 Overview: Dr. Batista - [facility] - stopped in 2011 - Samuel Cornelius MD took over prescriptions Rosacea 02/02/2006 Degeneration of cervical intervertebral disc 02/02/2006 Overview: excision/fusion c5/6- Dr. Contreras Lumbago 02/02/2006 Overview: Dr. Contreras, Dr. Saunders, Dr. Rosarioov Neurontin, Percocet - on controlled substances contract 12/10 - pending bilateral transforaminal epidural steroid injections, left L4 and right L3 04/11 - Percocet increased to QID 10/13 - Gabapentin to TID Enchondroma of L distal femoral metaphys is 08/19/2003 Overview: Dr. 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 Immunizations Name Administration Dates Next Due COVID-19 (Pfizer) 11/25/2020,11/04/2020 COVID-19 (Pfizer) Pt Reported 01/06/2022, 021 Covid-19 Bivalent (Moderna) 05/07/2022 Covid-19 Moderna Omicron (PT Reported)- Spikevax 04/14/2023 Influenza (> 6 Months) 06/19/2018,2013,06/26/2013,05/24,06/09/2011 Influenza Flu (PT Reported) 04/14/2023, Influenza Vaccine-preservati ve Free-quadrivalent 4 Years 05/02/2019 Influenza vaccine high dose age 65 and over 04/29/2021,05/13/2020 PREVNAR 20 07/12/2023 PREVNAR 20 (PATIENT REPORTED) 07/12/2023 Pneumoccoccal(Adult) Polysac charide PPSV23 05/13/2020 Shingrix (Patient reported) 05/01/2015 Shingrix (Recombinant zoster vaccine) 12/23/2020 TD (STATE SUPPLIED FOR ADULT S AND CHILDREN) 07/12/2023 TETANUS/DIPTHERIA (ADULT) 12/27/2002 Tdap 10/25/2012 Zostavax 05/02/2015 Family History Medical History Relation Name Comments CAD Brother 1 No Known Problems Brother 2 No Known Problems Brother 3 No Known Problems Daughter Arthritis Father Hypertension Father Parkinson's Disease Father macular degeneration Father No Known Problems Maternal Grandfather Asthma Maternal Grandmother Asthma Mother Diabetes Mother Glaucoma Mother Hypertension Mother Suicide/Depression Mother depressio n No Known Problems Other No Known Problems Paternal Grandfather No Known Problems Paternal Grandmother No Known Problems Sister 1 No Known Problems Sister 2 No Known Problems Sister 3 No Known Problems Son CA Breast Negative Hx Relation Name Status Comments Brother 1 Brother 2 Alive Brother 3 Alive Daughter Alive Father Alive Maternal Grandfather Maternal Grandmother Mother Other Paternal Grandfather Paternal Grandmother Sister 1 Alive Sister 2 Alive Sister 3 Son Alive Social History Tobacco Use Types Packs/Day Years Used Date Smoking Tobacco: Former Cigarettes 0 10/27/2005 - 09/29/2019 Smokeless Tobacco: Never Tobacco Cessation:Counseling Given: Not Answered Comments:started at age 49, 2-3 packs/week Alcohol [...] Pulse 94 02/28/2024 9:47 AM EDT Temperature 36.9 C (98.4 F) 02/28/2024 9:47 AM EDT Respiratory Rate 13 03/26/2024 8:05 AM EDT Oxygen Saturation 91% 05/17/2023 1:04 PM EDT Inhaled Oxygen Concentration - - Weight 72.6 kg (160 lb) 06/01/2024 9:41 AM EDT Height 167.6 cm (5' 6 ) 06/01/2024 9:41 AM EDT Body Mass Index 25.82 06/01/2024 9:41 AM EDT Plan of Treatment Health Maintenance Due Date Last Done Comments BONE DENSITY SCREENING 11/12/2019 10/01/2010 MAMMOGRAM 02/28/2020 02/27/2019, 08/09/2016, 03/27/2016, Additional history exists DEPRESSION SCREEN 07/12/2024 07/12/2023, , 03/17/2022 FALL RISK ASSESSMENT 07/12/2024 07/12/2023, 04/28/2022, 04/07/2021 BMI CHECK/ADVISE 08/29/2024 08/05/2022, , 04/07/2021, Additional history exists Covid-19 Vaccine (2022-09 4 season) 2025 04/14/2023, 05/07/2022, 01/06/2022, Additional history exists INFLUENZA (#1) 2025 04/14/2023, 04/29, 04/29/2021, Additional history exists CHOLESTEROL SCREENING 09/09/2026 09/09/2021 , 09/09/2021, 09/09/2021, Additional history exists COLON CANCER SCREENING 05/26/2027 , 04/12/2017, 07/16/2011, Additional history exists DTAP/TDAP/TD (3 - Td or Tdap) 07/12/2033 07/12/2023, 10/25/2012 HEPATITIS C SCREENING Completed 08/02/2016 SHINGLES VACCINE Completed 12/23/2020, 11/2014, 05/01/2015 PNEUMOCOCCAL VACCINE Completed 07/12/2023, 07/12/2023, 05/13/2020 Care Teams Soup Person Relationship Specialty Start Date End Date [facility], Pcp [address] [facility] [place] [address] PCP - General Internal Medicine 06/22/24 Beti Greenwood MD [address] [facility] [place] [address] UROGYNECOLOGY 07/07/23 Juani Rhodes NP [address] [facility] [place] [address] Cardiology 07/07/23
--- OUTSIDE RECORDS SUMMARY | 2025-05-24 08:39 | XMS_ITS | Encounter Summary ---
Author Organization [facility] Address [address] [place] [address] Care Team Providers Care Plant Breeder Scientist Name Role Phone Scot Owen MD Primary Care Provider Unavailable Lukas Bradford MD Primary Care Provider Jan Juárez DO Primary Care Provider UnavailLane Banerjee MD Unavailable Unavailable Beti Greenwood MD Unavailable Juani Rhodes NP Unavailable [phone] Letitia Khalil MD Primary Care Provider Un available [facility], Pcp Primary Care Provider Unavailabl e Encounter Details Date Type Department Care Team Description 05/19/2021 Pt. Non Urgent Medic al Question Adult Medicine - [address] [address] Scot Owen MD Social History Tobacco Use [...] often do you attend chur ch or jainism services? Never 07/12/2023 Do you [...] Telephone Encounter - Kaitlin Truong M.A. - 05/19/2021 8:44 AM EDTFrom: Neha Wright To: Clovis Owen Sent: 05/19/2021 6:47 AM EDT Subject: prescription my brother and the wake is this afternoon . I have to draft roller picker my prescription today and was hoping you would please have it ready before 12 oclock. Thank you Neha Wright documented in this encounter Plan of Treatment Not on file documented as of this encounter Visit Diagnoses Not on filedocumented in this encounter Care Teams Plant Breeder Scientist Relationship Specialty Start Date End Date Scot Owen MD PCP - General Internal Medicine 01/23/1606/30/21 Lukas Bradford MD PCP - General Internal Medicine 07/01/21 08/10/21 Jan Palomino DO PCP - General Internal Medicine 08/11/21 11/16/23 Letitia Khalil MD [address] [facility] [place] [address] PCP - General Internal Medicine 11/17/23 06/21/24 [facility], Pcp [address] [facility] [place] [address] PCP - General Internal Medicine 06/22/24 Lane Valdes MD Specialist Cardiovascular Disease 01/14/22 Beti Greenwood MD [address] [facility] [place] [address] UROGYNECOLOGY 07/07/23 Juani Rhodes NP [address] [facility] [place] [address] Cardiology 07/07/23 documented as of this encounter
--- OUTSIDE RECORDS SUMMARY | 2025-05-24 08:39 | XMS_ITS | Encounter Summary ---
Author Organization [facility] Address [address] [place] [address] Care Team Providers Care Front Load Trash Truck Driver Name Role Phone Lukas Bradford MD Primary Care Provider Jan Juárez DO Primary Care Provider UnavailLane Banerjee MD Unavailable Unavailable Beti Greenwood MD Unavailable Juani Rhodes NP Unavailable [phone] Letitia Khalil MD Primary Care Provider Un available [facility], Pcp Primary Care Provider Unavailabl e Encounter Details Date Type Department Care Team Description 07/14/2021 Pt. Non Urgent Medic al Question Adult Medicine - [address] [address] Scot Owen MD Social History Tobacco Use [...] on filedocumented in this encounter Care Teams Front Load Trash Truck Driver Relationship Specialty Start Date End Date Lukas Bradford MD PCP - General Internal Medicine 07/01/21 08/10/21 Jan Palomino DO PCP - General Internal Medicine 08/11/21 11/16/23 Letitia Khalil MD [address] [place] [address] [place] [address] PCP - General Internal Medicine 11/17/23 06/21/24 [facility] Pcp [address] [place] [address] [place] [address] PCP - General Internal Medicine 06/22/24 Lane Valdes MD Specialist Cardiovascular Disease 01/14/22 Beti Greenwood MD [address] [facility] [place] [address] UROGYNECOLOGY 07/07/23 Juani Rhodes NP [address] [facility] [place] [address] Cardiology 07/07/23 documented as of this encounter
--- OUTSIDE RECORDS SUMMARY | 2025-05-24 08:39 | XMS_ITS | Clinical Summary ---
Author Organization [facility] Address [address] [place] [id number] Care Team Providers Care Switch Maker Name Role Phone Pcp, No Primary Care Provider Unavailabl e Allergies Active Allergy Reactions Criticality Noted Date Comments Ciprofloxacin Unknown/Patient and Family Unable to Define Medium 06/07/2023 Egg Solids, Whole Rash/Dermatitis Low 11/23/2005 Rash/Dermatitis Gabapentin Hives Medium 04/14/2018 Hives/Urticaria Metaxalone Nausea And Vomiting Medium 05/26/2022 Methocarbamol Other (See Comments) Low 11/23/2005 Runny Nose/Rhinitis Penicillins Nausea And Vomiting,Nausea Only,Swelling,Short ness Of Breath High 11/23/2005 Tolerated cephalosporin 05/24/23 Numbness, tingling or swelling of the lips, tongue or mouth Sertraline Rash/Dermatitis Low 03/17/2017 Rash/Dermatitis Sulfa Antibiotics Anaphylaxis High 05/01/2023 Sulfamethoxazole-Trime thoprim GI Intolerance/Nausea/ Vomiting Low 04/12/2025 Sulindac Unknown/Patient and Family Unable to Define Medium 06/09/2011 Medications valACYclovir (VALTREX) 500 MG tablet Take 500 mg by mouth daily. 04/19/2023 Active oxyCODONE-aceta minophen (PERCOCET) 5-325 mg per tablet TAKE 1 TABLET BY MOUTH UP TO 5 TIMES DAILY NEEDED FOR SEVERE PAIN 04/18/2023 Active diltiazem (CARDIZEM CD) 180 MG 24 hr capsule Take 1 tablet by mouth daily. 06/11/2024 Active saccharomyces boulardii (FLORASTOR) 250 MG capsuleIndicati ons:Bacterial urinary tract infection Take 1 capsule (250 mg total) by mouth 2 (two) times a day. 60 capsule 10/11/2024 Active oxyCODONE (ROXICODONE) 5 MG immediate release tablet Take 1 tablet by mouth 4 times daily (every 6 hours) as needed. Active GaviLAX 17 GM/SCOOP powder TAKE 17 GRAMS (MIXED IN LIQUID) BY MOUTH ONCE EVERY DAY 01/14/2025 Active simethicone (MYLICON) 80 MG chewable tablet Chew 80 mg 4 times daily (every 6 hours) as needed. 12/17/2024 Active Active Problems Problem Noted Date Diagnosed Date Lumbar radiculitis 10/19/2024 Dysuria-frequency syndrome 02/12/2024 Anxiety 11/17/2023 Uterovaginal prolapse, unspecified 03/30/2023 Overview (10/19/2024): Added automatically from request for surgery [id number] Vaginal atrophy 03/30/2023 Overview (10/19/2024): Added automatically from request for surgery [id number] Mitral valve prolapse 02/25/2022 Overview (10/19/2024): Last [...] Encounters Date Type Department Care Team Description 04/25/2025 8:00 AM EDT Office Visit [facility] [address] [phone] Yonatan Jasmine MD Jaremko, Marcin, MD Laceration of scalp, subsequent encounter (Primary Dx) 04/25/2025 Travel 04/12/2025 10:10 AM EDT Office Visit [facility] [address] [address] Yonatan Jasmine MD Devitt, Anna C, APRN Right ankle injury, initial encounter (Primary Dx); Right foot injury, initial encounter; Sprain of right ankle, unspecified ligament, initial encounter; Right foot sprain, initial encounter 04/12/2025 Travel from Last 3 Months Social History [...] Sign Reading Time Taken Comments Blood Pressure 141/89 04/25/2025 8:06 AM EDT Pulse 91 04/25/2025 8:06 AM EDT Temperature 36.6 C (97.8 F) 04/12/2025 12:44 PM EDT Respiratory Rate 18 04/25/2025 8:06 AM EDT Oxygen Saturation 96% 04/25/2025 8:06 AM EDT Inhaled Oxygen Concentration - - Weight 68 kg (150 lb) 04/25/2025 8:06 AM EDT Height 167.6 cm (5' 6 ) 04/25/2025 8:06 AM EDT Body Mass Index 24.21 04/25/2025 8:06 AM EDT Plan of Treatment Health Maintenance Due Date Last Done Comments Advance Care Planning 1955 Hepatitis C Virus Screening 1955 DTaP/Tdap/Td Vaccines (1 - Tdap) 1973 Pneumococcal Vaccines 50+ (1 of 2 - PCV) 1973 Mammogram 1994 Colonoscopy 11/12/1999 Zoster (Shingles) Vaccine (1 of 2) 2004 RSV Vaccine 60 years and older and Patients (1 - Risk 60-74 years 1-dose series) 2014 DXA Bone Density (Females,Ages 65 and older) 11/12/2019 Influenza Vaccine 03/29/2025 04/16/2024, , 04/14/2023, Additional history exists COVID-19 Vaccine ( season) 2025 04/14/2023, 05/07/2022, 01/06/2022, Additional history exists Hepatitis B Vaccines Aged Out No long er eligible based on patient's age to complete this topic Procedures Procedure Name Priority Date/Time Associated Diagnosis Comments XR FOOT 3+ VIEWS-RIGHT Routine 04/12/2025 3:07 PM EDT Right ankle injury, initial encounter Right foot injury, initial encounter XR ANKLE 3+ VIEWS-RIGHT Routine 04/12/2025 3:07 PM EDT Right ankle injury, initial encounter Right foot injury, initial encounter from Last 3 Months Results * XR Foot 3+ views-Right (04/12/2025 3:07 PM EDT) Anatomical Region Laterality Modality Foot Right Computed Radiogr aphy 04/12/2025 3:15 PM EDT 04/12/2025 3:15 PM EDT Impressions 04/12/2025 3:20 PM EDT No acute osseous abnormality. Electronically signed by: Chet Raymundo MD 04/12/2025 03:20 PM EDT RP Thank you for referring your patient to us, Chet Raymundo MD [phone] (Electronically Signed - 04/12/2025 15:20) Narrative 04/12/2025 3:20 PM EDT EXAMINATION: RIGHT ANKLE AND FOOT RADIOGRAPH CLINICAL INFORMATION: Negative for fracture COMPARISON: None available. TECHNIQUE: 3 views right ankle and foot FINDINGS: Right ankle: No acute fracture or malalignment. Dorsal and plantar calcaneal enthesophytes. Soft tissues are unremarkable. Right foot: No acute fracture or malalignment, especially of the fifth metatarsal as clinically queried. Procedure Note Chet Raymundo MD - 04/12/2025 EXAMINATION: RIGHT ANKLE AND FOOT RADIOGRAPH CLINICAL INFORMATION: Negative for fracture COMPARISON: None available. TECHNIQUE: 3 views right ankle and foot FINDINGS: Right ankle: No acute fracture or malalignment. Dorsal and plantarcalcaneal enthesophytes. Soft tissues are unremarkable. Right foot: No acute fracture or malalignment, especially of the fifthmetatarsal as clinically queried. IMPRESSION: No acute osseous abnormality. Electronically signed by: Chet Raymundo MD 04/12/2025 03:20 PM EDT RPWorkstation: [id number] Thank you for referring your patient to us, Chet Raymundo MD [phone] (Electronically Signed - 04/12/2025 15:20) us Aylin Ulloa STEAM TABLE ASSOCIATE IMG DIAGNOSTIC IMAGING ORDERA BLES Final Result * XR Ankle 3+ views-Right (04/12/2025 3:07 PM EDT) Anatomical Region Laterality Modality Ankle Right Computed Radiogr aphy 04/12/2025 3:00 PM EDT 04/12/2025 3:00 PM EDT Impressions 04/12/2025 3:20 PM EDT No acute osseous abnormality. Electronically signed by: Chet Raymundo MD 04/12/2025 03:20 PM EDT Thank you for referring your patient to us, Chet Raymundo MD [phone] (Electronically Signed - 04/12/2025 15:20) Copy: PATIENT , DEVI MENDOZA MD [facility] [address] [place] [address] [facility] [place] [address] )[phone] Narrative 04/12/2025 3:20 PM EDT EXAMINATION: RIGHT ANKLE AND FOOT RADIOGRAPH CLINICAL INFORMATION: Negative for fracture COMPARISON: None available. TECHNIQUE: 3 views right ankle and foot FINDINGS: Right ankle: No acute fracture or malalignment. Dorsal and plantar calcaneal enthesophytes. Soft tissues are unremarkable. Right foot: No acute fracture or malalignment, especially of the fifth metatarsal as clinically queried. Procedure Note Chet Raymundo MD - 04/12/2025 EXAMINATION: RIGHT ANKLE AND FOOT RADIOGRAPH CLINICAL INFORMATION: Negative for fracture COMPARISON: None available. TECHNIQUE: 3 views right ankle and foot FINDINGS: Right ankle: No acute fracture or malalignment. Dorsal and plantarcalcaneal enthesophytes. Soft tissues are unremarkable. Right foot: No acute fracture or malalignment, especially of the fifthmetatarsal as clinically queried. IMPRESSION: No acute osseous abnormality. Electronically signed by: Chet Raymundo MD 04/12/2025 03:20 PM EDT RPWorkstation: [id number] Thank you for referring your patient to us, Chet Raymundo MD [phone] (Electronically Signed - 04/12/2025 15:20) Copy: PATIENT , DEVI MENDOZA MD [facility] [address] [place] [address] [facility] [place] [address] )[phone] Aylin Ulloa STEAM TABLE ASSOCIATE IMG DIAGNOSTIC IMAGING ORDERA BLES Final Result from Last 3 Months Insurance MEDICARE PART A & B [facility] Care Teams Switch Maker Relationship Specialty Start Date End Date Pcp, No PCP - General General Medicine 09/27/24
--- OUTSIDE RECORDS SUMMARY | 2025-05-24 08:39 | XMS_ITS | Encounter Summary ---
Author Organization [facility] Address [address] [place] [address] Care Team Providers Care File Machine Operator Name Role Phone Scot Owen MD Primary Care Provider Unavailable Lukas Bradford MD Primary Care Provider Jan Juárez DO Primary Care Provider UnavailLane Banerjee MD Unavailable Unavailable Beti Greenwood MD Unavailable Juani Rhodes NP Unavailable [phone] Letitia Khalil MD Primary Care Provider Un available [facility], Pcp Primary Care Provider Unavailabl e Encounter Details Date Type Department Care Team Description 05/21/2021 [facility] Medical Records [address] [place] [address] Abstract, Provider Social History Tobacco Use Types [...] on filedocumented in this encounter Care Teams File Machine Operator Relationship Specialty Start Date End Date Scot Owen MD PCP - General Internal Medicine 01/23/1606/30/21 Lukas Bradford MD PCP - General Internal Medicine 07/01/21 08/10/21 Jan Palomino DO PCP - General Internal Medicine 08/11/21 11/16/23 Letitia Khalil MD [address] [place] [address] [facility] [place] [address] PCP - General Internal Medicine 11/17/23 06/21/24 [facility], Pcp [address] [place] [address] [facility] [place] [address] PCP - General Internal Medicine 06/22/24 Lane Valdes MD Specialist Cardiovascular Disease 01/14/22 Beti Greenwood MD [address] [place], [place] [address] [place] [address] UROGYNECOLOGY 07/07/23 Juani Rhodes, SWIFT TENDER [address] [facility] [place] [address] Cardiology 07/07/23 documented as of this encounter
--- OUTSIDE RECORDS SUMMARY | 2025-05-24 08:39 | XMS_ITS | Encounter Summary ---
[facility] Address [address] [place] [address] Care Team Providers Care Entrance Guard Name Role Phone Kristina Chatman MD Primary Care Provider UnavailScot Hansen MD Primary Care Provider Unavailable Lukas Bradford MD Primary Care Provider Jan Juárez DO Primary Care Provider Unavaila Lane Villalobos MD Unavailable Unavailable Beti Greenwood MD Unavailable Juani Rhodes NP Unavailable [phone] Letitia Khalil MD Primary Care Provider Un available [facility], Pcp Primary Care Provider Unavailformerly [facility] e Encounter Details Date Type Department Care Team Description 01/19/2016 Classified Advertising Manager Report Medical Records [address] [place] [id number] Ghada Toussaint Social History Tobacco Use Types [...] on filedocumented in this encounter Care Teams Entrance Guard Relationship Specialty Start Date End Date Kristina Chatman MD PCP - General Internal Medicine 12/25/15 01/22/16 Scot Owen MD PCP - General Internal Medicine 01/23/1606/30/21 Lukas Bradford MD PCP - General Internal Medicine 07/01/21 08/10/21 Jan Palomino DO PCP - General Internal Medicine 08/11/21 11/16/23 Letitia Khalil MD [address] [place] [address] [place] [address] PCP - General Internal Medicine 11/17/23 06/21/24 [facility], Pcp [address] [place] [address] [place] [address] PCP - General Internal Medicine 06/22/24 Lane Valdes MD Specialist Cardiovascular Disease 01/14/22 Beti Greenwood MD [address] [place] [address] [place] [address] UROGYNECOLOGY 07/07/23 Juani Rhodes, ISAC [address] [facility] [place] [address] Cardiology 07/07/23 documented as of this encounter
--- OUTSIDE RECORDS SUMMARY | 2025-05-24 08:39 | XMS_ITS | Encounter Summary ---
Author Organization [facility] [employer] [facility] Address [address] [place] [address] Care Team Providers Care Sales Merchandise Associate Name Role Phone Lukas Bradford MD Primary Care Provider Jan Juárez DO Primary Care Provider Lane Macario MD Unavailable Unavailable Beti Greenwood MD Unavailable Juani Rhodes NP Unavailable [phone] Letitia Khalil MD Primary Care Provider Un available [facility], Pcp Primary Care Provider Unavailabl e Encounter Details Date Type Department Care Team Description 07/06/2021 Pt. Non Urgent Medic al Question Adult [address] [address] Lukas Bradford MD Social History Tobacco Use [...] on filedocumented in this encounter Care Teams Sales Merchandise Associate Relationship Specialty Start Date End Date Lukas Bradford MD PCP - General Internal Medicine 07/01/21 08/10/21 Jan Palomino DO PCP - General Internal Medicine 08/11/21 11/16/23 Letitia Khalil MD [address] [place] [address] [place] [address] PCP - General Internal Medicine 11/17/23 06/21/24 [facility], [address] [place] [address] PCP - General Internal Medicine 06/22/24 Lane Valdes MD Specialist Cardiovascular Disease 01/14/22 Beti Greenwood MD [address] [facility] [place] [address] UROGYNECOLOGY 07/07/23 Juani Rhodes NP [address] [facility] [place] [address] Cardiology 07/07/23 documented as of this encounter
--- OUTSIDE RECORDS SUMMARY | 2025-05-24 08:39 | XMS_ITS | Clinical Summary ---
Author Organization [facility] [employer] Address [address] [facility] [place] [address] Phone Care Team Providers Care Senior Merchandiser Name Role Phone Chyna Reina MD Primary Care Provider [phone] Allergies Active Allergy Reactions Criticality Noted Date [...] lips, tongue or mouth Sulindac 06/09/2011 Medications valACYclovir (VALTREX) 500 mg tablet Take 1 tablet (500 mg total) by mouth 1 (one) time each day. 04/18/20 Active oxyCODONE (ROXICODONE) 5 mg immediate release tabletIndicat ions:acute post op pain Take 1 tablet (5 mg total) by mouth every 6 (six) hours if needed for severe pain. For acute postoperative pain Max Daily Amount: 20 mg 6 each 12/19/19 25 Active estradioL (ESTRACE) 0.01 % (0.1 mg/gram) vaginal cream Apply dime size amount to vagina digitally nightly for 2 weeks, then 2 times per week. 127.5 g 3 02/09/20 25 Active dilTIAZem CD (CARDIZEM CD) 180 mg 24 hr capsule TAKE 1 CAPSULE BY MOUTH EVERY DAY 90 capsule 3 04/26/20 25 Active docusate sodium (COLACE) 100 mg capsule Take 1 capsule (100 mg total) by mouth 2 (two) times a day if needed for constipation. 05/13/20 25 Active oxyCODONE-lupe taminophen (PERCOCET) 5-325 mg per tablet Take 1 tablet by mouth 4 (four) times a day. 2024 Discontinued(T herapy completed) dilTIAZem CD (CARDIZEM CD) 180 mg 24 hr capsule TAKE 1 CAPSULE BY MOUTH EVERY DAY 90 capsule 1 09/10/19 25 2024 Discontinued simethicone (MYLICON) 80 mg chewable tablet Chew 1 tablet (80 mg total) every 6 (six) hours if needed (gas pain / bloating). 10 tablet 12/18/19 25 2024 Discontinued(T herapy completed) docusate sodium (COLACE) 100 mg capsule TAKE 1 CAPSULE BY MOUTH TWICE A DAY 60 capsule 01/15/20 25 2024 Discontinued(T herapy completed) polyethylene glycol (Gavilax) 17 gram/dose oral powder TAKE 17 GRAMS (MIXED IN LIQUID) BY MOUTH ONCE EVERY DAY 510 g 01/15/20 25 2024 Discontinued(T herapy completed) Active Problems Problem Noted Date Diagnosed Date Sprain of right ankle 05/13/2025 Assessment & Plan (05/13/2025 8:28 AM EDT): - Experienced right ankle sprain approximately 2 months ago, resulting in persistent swelling. She was seen at urgent care for this complaint. - X-ray did not show any fractures - Physical therapy suggested but declined - Advised to monitor swelling and consider physical therapy if symptoms persist Scalp laceration 05/13/2025 Assessment & Plan (05/13/2025 8:28 AM EDT): - Sustained scalp laceration on 04/25/2025, required one staple which has been removed since then. - Wound healing well with no signs of infection Preoperative examination 12/06/2024 Assessment & Plan (12/06/2024 [...] of fever, nausea, or vomiting -Follow with uro-print graphic designer Anxiety 11/17/2023 Vaginal atrophy 03/30/2023 Overview (05/08/2024): Added automatically from request for surgery [id number] Mitral valve prolapse 02/25/2022 Overview (05/29/2024): Last Assessment & Plan: Patient reports that she has history of mitral valve prolapse however her most recent echocardiogram did not show any structural abnormalities. Cardiac function is normal. Assessment & Plan (10/30/2024 11:14 AM EST): Orders: ECG 12 lead SVT (supraventricular tachycardia) ([facility] V24) 02/23/2022 Overview (05/29/2024): Last [...] has any adverse symptoms. Assessment & Plan (05/13/2025 8:26 AM EDT): - Currently taking diltiazem for palpitations associated with SVT - Heart rate is stable - Advised to continue current medication regimen - Follows with cardiology Assessment & Plan (11/08/2024 9:02 AM EDT): [...] because of egg allergy Assessment & Plan (05/13/2025 8:27 AM EDT): - Reports significant pain and difficulty sleeping and functioning -Follows with pain management every month - Currently taking acetaminophen 650 mg as needed and roxicodone Assessment & Plan (10/26/2024 3:40 PM EST): She is currently following with pain management at [facility] Diverticulitis of colon without hemorrhage 04/07 Degeneration of cervical intervertebral disc 02/2006 Overview (05/29/2024): excision/fusion c5/6- Dr. Contreras Depression with anxiety 02/02/2006 Overview (05/29/2024): Dr. Batista - [facility] - stopped in 2011 - Samuel Cornelius [...] 08/19/2003 Overview (05/29/2024): Dr. Maykel Ramírez - [facility] 2003 MRI and bone scan Herpes simplex type II infection 11/17/1995 Overview (05/29/2024): Confirmed by culture 05/22/0711/09 - valacyclovir 500mg qd for suppression Resolved Problems Problem Noted Date Diagnosed Date Resolved Date Uterovaginal prolapse, unspecified 03/30/2023 12/17/2024 Overview (05/08/2024): Added automatically from request for surgery [id number] Encounters Date Type Department Care Team Description 05/13/2025 8:00 AM EDT Office Visit Internal Medicine - [address] [place] [address] Chyna Reina MD SVT (supraventricular tachycardia) ([facility] V24) (Primary Dx); Hyperlipidemia, unspecified hyperlipidemia type; Diabetes mellitus screening; Chronic pain syndrome; Sprain of right ankle, unspecified ligament, sequela; Laceration of scalp, sequela from Last 3 Months Immunizations Name Administration [...] BILATERAL SALPINGECTOMY; Surgeon: Beti Greenwood MD; Location: [facility] MAIN OPERATING ROOM; Service: Gynecology; Laterality: N/A; VAGINAL PROLAPSE REPAIR 05/24/2023 N/A PROCEDURE:VAGINAL PROLAPSE REPAIR;COMMENT:Procedure: VAGINAL COLPOPEXY (INTRAPERITONEAL APPROACH); Surgeon: Beti Greenwood MD; Location: [facility] MAIN [facility]PERATING ROOM; Service: Gynecology; Laterality: N/A; COLPORRHAPHY 05/24/2023 N/A PROCEDURE:COLPORRHAPHY;COMM ENT:Procedure: POSTERIOR REPAIR; Surgeon: Beti Greenwood MD; Location: [facility] MAIN [facility]PERATING ROOM; Service: Gynecology; Laterality: N/A; CYSTOSCOPY 05/24/2023 N/A PROCEDURE:CYSTOSCOPY;COMMEN T:Procedure: CYSTOSCOPY; Surgeon: Beti Greenwood MD; Location: [facility] MAIN OPERATING ROOM; Service: Gynecology; Laterality: N/A; OTHER SURGICAL HISTORY 05/24/2023 N/A PROCEDURE:TVT / TOT UTERINE SUSPENSION;COMMENT:Procedur e: PLACEMENT OF MESH MID-URETHRAL SLING; Surgeon: Beti Greenwood MD; Location: [facility] MAIN OPERATING ROOM; Service: Gynecology; Laterality: N/A; [...] Sign Reading Time Taken Comments Blood Pressure 132/77 05/13/2025 8:01 AM EDT Pulse 76 05/13/2025 8:01 AM EDT Temperature 36.6 C (97.9 F) 05/13/2025 8:01 AM EDT Respiratory Rate 18 12/17/2024 11:51 AM EDT Oxygen Saturation 97% 05/13/2025 8:01 AM EDT Inhaled Oxygen Concentration - - Weight 73 kg (161 lb) 05/13/2025 8:01 AM EDT Height 167.6 cm (5' 6 ) 05/13/2025 8:01 AM EDT Body Mass Index 25.99 05/13/2025 8:01 AM EDT Plan of Treatment Upcoming Encounters Date Type Department Care Team (Late st Contact Info) Description 2025 8:00 AM EDT Office Visit Internal Medicine - [place] [place] [id number] Chyna Reina MD [address] [place] [address] Health Maintenance Due Date Last Done Comments Social Influencers of Health Screening 08/07/2022 COVID-19 Vaccine ( season) 2025 05/16/2024, 04/14/2023, 04/14/2023, Additional history exists Influenza Vaccine (#1) 2025 , 04/16/2024, 04/14/2023, Additional history exists Medicare Annual Wellness Visit 11/08/2025 11/08/2024 Falls Risk Assessment 12/17/2025 12/17/2024 , 11/08/2024, 07/12/2023 Breast Cancer Screening 11/21/2026 11/22/19 25, 02/27/2019, 03/30/2017 Colorectal Cancer Screening: Colonoscopy 05/26/2027 [...] Completed 07/12/2023, 07/12/2023, 05/13/2020 Depression Screening Completed 05/13/2025, 07/12/20 23 HIB Vaccines Aged Out No [...] this topic Medical Devices Implanted Type Area [employer] Floorperson Device Identifier Shelf Expiration Date Model / Serial / Lot Mesh Y [employer] - Sn/A - [id number] Implanted:Qty: 1 on 12/17/2024 by Beti Greenwood MD at [facility] Surgical Mesh Sling Implants N/A: Urinary Bladder [employer] 02/16/2027 [id number] / N/A / [id number] System Gynecare Tvt Exact 3mm Troc Retro Pubic Urnry Incont Fili-Ethi [id number] Implanted:Qty: 1 on 05/24/2023 by Beti Greenwood MD N/A: Vagina [employer] 12/27/2023 TVTRL / / [id number] Procedures Procedure Name Priority Date/Time Associated Diagnosis [...] on 11/25/2024 5:53 PM. Workstation Name - [id number] -------- FINAL REPORT -------- Dictated By: Nicanor Lerner Dictated Date: 11/24/2024 19:24 ET Assigned Physician: Nicanor Lerner Reviewed and Electronically Signed By: Nicanor Lerner Signed Date: 11/25/2024 17:53 ET Workstation ID: [id number] Transcribed By: Self Edit Transcribed Date: 11/25/2024 [...] Lerner on 11/25/2024 5:53 PM.Workstation Name - [id number] -------- FINAL REPORT -------- Dictated By: Nicanor Lerner Dictated Date: 11/24/2024 19:24 ET Assigned Physician: Nicanor Lerner Reviewed and Electronically Signed By: Nicanor Lerner Signed Date: 11/25/2024 17:53 ET Workstation ID: [id number] Transcribed By: Self Edit Transcribed Date: 11/25/2024 [...] density per current federal guidelines. Exam Location: [facility], [address] [place] [address], [facility], . Report reviewed and signed by : Dr. Jessica Saldivar on 11/27/2024 1:23 PM. Workstation Name - [id number] -------- FINAL REPORT -------- Dictated By: Jessica Saldivar Dictated Date: 11/27/2024 13:18 ET Assigned Physician: Jessica Saldivar Reviewed and Electronically Signed By: Jessica Saldivar Signed Date: 11/27/2024 13:23 ET Workstation ID: [id number] Transcribed By: Self Edit Transcribed Date: 11/27/2024 [...] breastdensity per current federal guidelines. Exam Location: [address], [facility], . Report reviewed and signed by : Dr. Jessica Saldivar on 11/27/2024 1:23 PM.Workstation Name - [id number] -------- FINAL REPORT -------- Dictated By: Jessica Saldivar Dictated Date: 11/27/2024 13:18 ET Assigned Physician: Jessica Saldivar Reviewed and Electronically Signed By: Jessica Saldivar Signed Date: 11/27/2024 13:23 ET Workstation ID: [id number] Transcribed By: Self Edit Transcribed Date: 11/27/2024 13:18 ET us Chyna Reina MD IMG BI PROCEDURES Final Result * (ABNORMAL) Lipid panel with reflex to direct LDL (11/06/2024 8:55 AM EDT) Cholesterol 255(H) 0 - 200 mg/dL LAB CHEMISTRY METHOD 11/06/2024 12:15 PM EDT [facility] Triglycerides 157(H) 0 - 150 mg/dL LAB CHEMISTRY METHOD 11/06/2024 12:15 PM EDT [facility] HDL 72 >=40 mg/dL LAB CHEMISTRY METHOD 11/06/2024 12:15 PM EDT [facility] LDL Calculated 152(H) 0 - 100 mg/dL LAB CHEMISTRY METHOD 11/06/2024 12:15 PM EDT [facility] VLDL Cholesterol Mert 31.4 mg/dL LAB CHEMISTRY METHOD 11/06/2024 12:15 PM EDT [facility] Non HDL Chol. (LDL+VLDL) 183(H) <145 mg/dL LAB CHEMISTRY METHOD 11/06/2024 12:15 PM EDT [facility] Chol/HDL Ratio 3.5 0.0 - 4.4 LAB CHEMISTRY METHOD 11/06/2024 12:15 PM EDT [facility] Blood Venous blood specimen / Unknown Venipuncture / Unknown 11/06/2024 8:55 AM EDT 11/06/2024 8:55 AM EDT us Chyna Reina MD LAB BLOOD ORDERABLES Final Resul t [facility] [address] [place] [address], [place] [phone] * Falls Risk Assessment (07/12/2023) Falls Risk [...] Recently Relevant to Health Maintenance Insurance MEDICARE [facility] Advance Directives * Full Code - Default [...] currently active code status orders. Care Teams Senior Merchandiser Relationship Specialty Start Date End Date Chyna Reina MD [address] [address] PCP - General Family Medicine 10/26/24
--- OUTSIDE RECORDS SUMMARY | 2025-05-24 08:39 | XMS_ITS | Encounter Summary ---
Author Organization [facility] Address [address] [place] [address] Care Team Providers Care Marketing Consultant Name Role Phone Beti Greenwood MD Unavailable Juani Rhodes NP Unavailable [phone] Letitia Khalil MD Primary Care Provider Un available [facility], Pcp Primary Care Provider Unavailabl e Encounter Details Date Type Department Care Team Description 06/04/2024 Pt. Non Urgent Medic al Question Adult Medicine - [address] [address] Letitia Khalil MD Social History Tobacco Use [...] on filedocumented in this encounter Care Teams Marketing Consultant Relationship Specialty Start Date End Date Letitia Khalil MD [address] [facility] [place] [address] PCP - General Internal Medicine 11/17/23 06/21/24 [facility], Pcp [address] [place] [address] [place] [address] PCP - General Internal Medicine 06/22/24 Beti Greenwood MD [address] [place] [address] [place] [address] UROGYNECOLOGY 07/07/23 Juani Rhodes, ISAC [address] [facility] [place] [address] Cardiology 07/07/23 documented as of this encounter
--- OUTSIDE RECORDS SUMMARY | 2025-05-24 08:39 | XMS_ITS | Encounter Summary ---
Author Organization [facility] Address [address] [place] [address] Care Team Providers Care Consulting Engineer Name Role Phone Samuel Cornelius Primary Care Provider UnaKristina Herrera MD Primary Care Provider UnavailScot Hansen MD Primary Care Provider Unavailable Lukas Bradford MD Primary Care Provider Jan Juárez DO Primary Care Provider Unavaila Lane Villalobos MD Unavailable Unavailable Beti Greenwood MD Unavailable Juani Rhodes NP Unavailable [phone] Letitia Khalil MD Primary Care Provider Un available [facility], Pcp Primary Care Provider Unavailabl e Reason for Visit * Reason Onset Date Comments Urine Drug Screen 02/10/2011 CSC Pill Count 02/10/2011 Encounter Details Date Type Department Care Team Description 02/10/2011 Telephone Adult [address] [address] Samuel Cornelius Urine Drug Screen; CSC Pill Count Social History Tobacco Use Types Packs/Day Years Used Date Smoking Tobacco: Every Day Cigarettes 0.5 3 Smokeless Tobacco: Never Comments:pt started up smoki ng 2 mos [...] week 07/12/2023 How often do you attend [facility] or confucianist services? Never 07/12/2023 Do you belong to [...] Miscellaneous Notes * Telephone Encounter - Selene FowlerP.N. - 02/19/2011 11:30 AM EDT Component Value Date UROXYCODONE POSITIVE 02/18/11 URBENZO NEGATIVE 02/18/11 URAMPHETAMIN NEGATIVE 02/18/11 URMARIJUANA NEGATIVE 02/18/11 UROPIATES NEGATIVE 02/18/11 URBARBITUATE NEGATIVE 02/18/11 URCOCAINE NEGATIVE 02/18/11 HYDROCODONE NEGATIVE 03/19/10 * Telephone Encounter - Selene FowlerP.NBecki - 02/18/2011 10:02 AM EDT Last RX for percocet 10/325 filled on 02/04/11 Quantity 112 Sig: one po qid Expected remaining tablets: 56 Actual Pill Count number: 55 Provider notified of result: YES Appearance of medication tablet verified by patients pharmacy: Pill count performed by Selene Boyle L.P.N.. Witnessed by: Sheeba anderson RN Electronically signed by: Selene Boyle L.P.N. 02/18/2011 10:01 AM * Telephone Encounter - Selene Boyle L.P.N. - 02/17/2011 11:49 AM EDT I contacted pt pharmacy and they did have an issue with a tech taking narcotics,however,that was last . All narcotics are presently locked up and can be handled by pharmacists only. Pharmacist confirmed that pt received her correct quantity of 112 tabs on 02/04/11. Markings described for tomorrows pill count. * Telephone Encounter - Katie Bach - 02/17/2011 9:56 AM EDT Pt called back states she wants to let you know that she was shorted on her rx last month by her pharmacy - states she did not let us know at the time because she thought no one would believe her [facility] [place] is aware of this problem and it was in the newspaper - fyi * Telephone Encounter - Selene Boyle L.P.N. - 02/17/2011 9:50 AM EDT Pt was notified to complete a random urine drug screen in our [facility] by 02/18/11 10a. The patient was also instructed that failure to complete this urine drug screen, as requested, would jeopardize their Controlled Substance Contract with [facility]. The patient expressed understanding of the instructions and confirmed that they will arrive by that date. Pt was notified to appear with all control substance medications in their original containers for arandom Pill Count. Patient to bring in the following medication/s: percocet 10/325 Pt was advised that they need to appear by 10a on 02/18/11. Instructed that failure to do so will jeopordize their Control Substance Contract with us. Pt expressed understanding and confirmed that they will arrive by that time. * Telephone Encounter - Selene FowlerPBeckiN. - 02/16/2011 12:30 PM EDT No answer after multiple rings * Telephone Encounter - Selene Boyle L.P.N. - 02/10/2011 9:33 AM EDT Attempted to contact pt,no answer after multiple rings, will continue to try and contact pt. Pt needs uds and csc pill count performed within 24 hours of notification documented in this encounter Plan of Treatment Not on file documented as of this encounter Results * ASSAY, DIHYDROCODEINONE (02/18/2011 9:26 AM EDT) HYDROCODONE UR GCMS NOT DETECTED NOTDETECTED [employer] Comment: TEST PERFORMED AT: [employer] [address] [facility] [address] HYDROMORPHONE UR GCMS NOT DETECTED NOTDETECTED [facility] Comment: TEST PERFORMED AT: [employer] [address] [facility] [address] 02/18/2011 9:2 6 AM EDT 02/18/2011 9:27 AM EDT Samuel Cornelius [facility] [employer] * (ABNORMAL) OXYCODONE, URINE (02/18/2011 9:26 AM EDT) URINE OXYCODONE POSITIVE( A) [facility] Comment: Assay cutoff 300 ng/mL Semi-quantitative assay for screening purposes only. Unconfirmed screening result should not be used for non-medical purposes. *ALTERNATE METHOD CONFIRMATION DONE UPON REQUEST ONLY* 02/18/2011 9:26 AM EDT 02/18/2011 9:27 AM EDT Samuel Cornelius [facility] * DRUG OF ABUSE SCREEN (02/18/2011 9:26 AM EDT) AMPHETAMINE, URINE NEGATIVE NEGATIVE [facility] BARBITURATES, URINE NEGATIVE NEGATIVE [facility] BENZODIAZEPINE , URINE NEGATIVE NEGATIVE [facility] COCAINE, URINE NEGATIVE NEGATIVE [facility] OPIATES, URINE NEGATIVE NEGATIVE [facility] MARIJUANA(THC) , URINE NEGATIVE NEGATIVE [facility] 02/18/2011 9:26 AM EDT 02/18/2011 9:27 AM EDT Samuel BANEGAS Performing Organization Address City/[facility] Co de Phone Number [facility] [address] [place] [address] documented in this encounter Visit Diagnoses Diagnosis Encounter for long-term (current) use of other medications- Primary documented in this encounter Care Teams Consulting Engineer Relationship Specialty Start Date End Date Samuel Cornelius PCP - General 08/29/05 12/24/15 Kristina Chatman MD PCP - General Internal Medicine 12/25/15 01/22/16 Scot Owen MD PCP - General Internal Medicine 01/23/1606/30/21 Lukas Bradford MD PCP - General Internal Medicine 07/01/21 08/10/21 Jan Palomino DO PCP - General Internal Medicine 08/11/21 11/16/23 Letitia Khalil MD [address] [facility] [place] [address] PCP - General Internal Medicine 11/17/23 06/21/24 [facility], Pcp [address] [facility] [place] [address] PCP - General Internal Medicine 06/22/24 Lane Valdes MD Specialist Cardiovascular Disease 01/14/22 Beti Greenwood MD [address] [facility] [place] [address] UROGYNECOLOGY 07/07/23 Juani Rhodes, ISAC [address] [facility] [place] [address] Cardiology 07/07/23 documented as of this encounter
--- OUTSIDE RECORDS SUMMARY | 2025-05-24 08:40 | XMS_ITS | Encounter Summary ---
Author Organization [facility] Address [address] [place] [address] Care Team Providers Care Helper Animal Laboratory Name Role Phone Lukas Bradford MD Primary Care Provider Jan Juárez DO Primary Care Provider Lane Macario MD Unavailable Unavailable Beti Greenwood MD Unavailable Juani Rhodes NP Unavailable [phone] Letitia Khalil MD Primary Care Provider Un available [facility], Pcp Primary Care Provider Unavailabl e Encounter Details Date Type Department Care Team Description 07/14/2021 Pt. Non Urgent Medic al Question Adult Medicine - [address] [address] Lisette Morales PA-C Social History Tobacco Use [...] on filedocumented in this encounter Care Teams Helper Animal Laboratory Relationship Specialty Start Date End Date Lukas Bradford MD PCP - General Internal Medicine 07/01/21 08/10/21 Jan Palomino DO PCP - General Internal Medicine 08/11/21 11/16/23 Letitia Khalil MD [address] [facility] [place] [address] PCP - General Internal Medicine 11/17/23 06/21/24 [facility] Pcp [address] [place] [address] [place] [address] PCP - General Internal Medicine 06/22/24 Lane Valdes MD Specialist Cardiovascular Disease 01/14/22 Beti Greenwood MD [address] [facility] [place] [address] UROGYNECOLOGY 07/07/23 Juani Rhodes NP [address] [place] [address] [place] [address] Cardiology 07/07/23 documented as of this encounter
--- OUTSIDE RECORDS SUMMARY | 2025-05-24 08:40 | XMS_ITS | Encounter Summary ---
Author Organization [facility] Address [address] [place] [address] Care Team Providers Care Suspect Artist Supervisor Name Role Phone Scot Owen MD Primary Care Provider Unavailable Lukas Bradford MD Primary Care Provider Jan Juárez DO Primary Care Provider UnavailLane Banerjee MD Unavailable Unavailable Beti Greenwood MD Unavailable Juani Rhodes NP Unavailable [phone] Letitia Khalil MD Primary Care Provider Un available [facility] Primary Care Provider Unavailabl e Encounter Details Date Type Department Care Team Description 04/09/2021 [facility] Medical Records [address] [place] [address] Abstract, Provider Social History Tobacco Use Types [...] on filedocumented in this encounter Care Teams Suspect Artist Supervisor Relationship Specialty Start Date End Date Scot Owen MD PCP - General Internal Medicine 01/23/1606/30/21 Lukas Bradford MD PCP - General Internal Medicine 07/01/21 08/10/21 Jan Palomino DO PCP - General Internal Medicine 08/11/21 11/16/23 Letitia Khalil MD [address] [place] [address] PCP - General Internal Medicine 11/17/23 06/21/24 Ronit, Shelia [address] [place] [address] [facility] [place] [address] PCP - General Internal Medicine 06/22/24 Lane Valdes MD Specialist Cardiovascular Disease 01/14/22 Beti Greenwood MD [address] [facility] [place] [address] UROGYNECOLOGY 07/07/23 Juani Rhodes NP [address] [facility] [place] [address] Cardiology 07/07/23 documented as of this encounter
--- OUTSIDE RECORDS SUMMARY | 2025-05-24 08:40 | XMS_ITS | Encounter Summary ---
Author Organization [facility] Address [address] [place] [address] Care Team Providers Care Capacity Planner Name Role Phone Scot Owen MD Primary Care Provider Unavailable Lukas Bradford MD Primary Care Provider Jan Juárez DO Primary Care Provider Unavaila Lane Villalobos MD Unavailable Unavailable Beti Greenwood MD Unavailable Juani Rhodes NP Unavailable [phone] Letitia Khalil MD Primary Care Provider Un available [facility], Pcp Primary Care Provider Unavailabl e Reason for Visit * Reason Comments E-prescribe Rx Request Encounter Details Date Type Department Care Team Description 04/14/2016 Refill Physiatry - [address] [address] Niels Jackson DO E-prescribe Rx Request Social [...] often do you attend chur ch or pentecostal services? Never 07/12/2023 Do you [...] went to pharmacy. * Telephone Encounter - Kanadce Guerrero - 04/14/2016 8:38 AM EDT Rx refill SAMUEL 10/06/15 LR 10/29/15 F/u 05/24/16 Contracted documented in this encounter Plan of Treatment Not on file documented as of this encounter Visit Diagnoses Not on filedocumented in this encounter Care Teams Capacity Planner Relationship Specialty Start Date End Date Scot Owen MD PCP - General Internal Medicine 01/23/1606/30/21 Lukas Bradford MD PCP - General Internal Medicine 07/01/21 08/10/21 Jan Palomino DO PCP - General Internal Medicine 08/11/21 11/16/23 Letitia Khalil MD [address] [facility] [place] [address] PCP - General Internal Medicine 11/17/23 06/21/24 [facility], Pcp [address] [facility] [place] [address] PCP - General Internal Medicine 06/22/24 Lane Valdes MD Specialist Cardiovascular Disease 01/14/22 Beti Greenwood MD [address] [facility] [place] [address] UROGYNECOLOGY 07/07/23 Juani Rhodes NP [address] [facility] [place] [address] Cardiology 07/07/23 documented as of this encounter
--- OUTSIDE RECORDS SUMMARY | 2025-05-24 08:40 | XMS_ITS | Encounter Summary ---
Author Organization [facility] Address [address] [place] [address] Care Team Providers Care Cable Cutter And Swager Name Role Phone Lukas Bradford MD Primary Care Provider Jan Juárez DO Primary Care Provider UnavailLane Banerjee MD Unavailable Unavailable Beti Greenwood MD Unavailable Juani Rhodes NP Unavailable [phone] Letitia Khalil MD Primary Care Provider Un available [facility], Pcp Primary Care Provider Unavailabl e Encounter Details Date Type Department Care Team Description 07/14/2021 Pt. Non Urgent Medic al Question Adult Medicine - [address] [address] Scot Owen MD Social History Tobacco Use [...] me. PLease tell me what doctor will pharmacy picking tech my contract? documented in this encounter Plan of Treatment Not on file documented as of this encounter Visit Diagnoses Not on filedocumented in this encounter Care Teams Cable Cutter And Swager Relationship Specialty Start Date End Date Lukas Bradford MD PCP - General Internal Medicine 07/01/21 08/10/21 Jan Palomino DO PCP - General Internal Medicine 08/11/21 11/16/23 Letitia Khalil MD [address] [facility] [place] [address] PCP - General Internal Medicine 11/17/23 06/21/24 [facility], Pcp [address] [facility] [place] [address] PCP - General Internal Medicine 06/22/24 Lane Valdes MD Specialist Cardiovascular Disease 01/14/22 Beti Greenwood MD [address] [facility] [place] [address] UROGYNECOLOGY 07/07/23 Juani Rhodes NP [address] [facility] [place] [address] Cardiology 07/07/23 documented as of this encounter
--- OUTSIDE RECORDS SUMMARY | 2025-05-24 08:40 | XMS_ITS | Encounter Summary ---
Author Organization [facility] Address [address] [place] [address] Care Team Providers Care Lip Cutter Name Role Phone Scot Owen MD Primary Care Provider Unavailable Lukas Bradford MD Primary Care Provider Jan Juárez DO Primary Care Provider UnavailLane Banerjee MD Unavailable Unavailable Beti Greenwood MD Unavailable Juani Rhodes NP Unavailable [phone] Letitia Khalil MD Primary Care Provider Un available [facility], Pcp Primary Care Provider Unavailabl e Encounter Details Date Type Department Care Team Description 11/02/2020 Refill Adult Medicine - [place] [address] [place] [address] Magno Willoughby MD [address] [place] [address] Social History Tobacco Use Types Packs/Day Years [...] L.P.N. - 11/12/2020 4:49 PM EDT Patient supervisor opening and picking * Telephone Encounter - Sushma Crespo - 11/03/2020 12:15 PM EST Pt calling back and is looking to pick this up bsr sees this has been signed please place in pt supervisor opening and picking and call pt when complete pt call number is [phone] * Telephone Encounter - Katia Arroyo L.P.N. [...] on filedocumented in this encounter Care Teams Lip Cutter Relationship Specialty Start Date End Date Scot Owen MD PCP - General Internal Medicine 01/23/1606/30/21 Lukas Bradford MD PCP - General Internal Medicine 07/01/21 08/10/21 Jan Palomino DO PCP - General Internal Medicine 08/11/21 11/16/23 Letitia Khalil MD [address] [place] [address] [place] [address] PCP - General Internal Medicine 11/17/23 06/21/24 [facility], Pcp [address] [place] [address] [place] [address] PCP - General Internal Medicine 06/22/24 Lane Valdes MD Specialist Cardiovascular Disease 01/14/22 Beti Greenwood MD [address] [place] [address] [place] [address] UROGYNECOLOGY 07/07/23 Juani Rhodes NP [address] [facility] [place] [address] Cardiology 07/07/23 documented as of this encounter
--- OUTSIDE RECORDS SUMMARY | 2025-05-24 08:40 | XMS_ITS | Encounter Summary ---
Author Organization [facility] Address [address] [place] [address] Care Team Providers Care Clinical Services Assistant Name Role Phone Lukas Bradford MD Primary Care Provider Jan Juárez DO Primary Care Provider Unavaila Lane Villalobos MD Unavailable Unavailable Beti Greenwood MD Unavailable Juani Rhodes NP Unavailable [phone] Letitia Khalil MD Primary Care Provider Un available [facility], Pcp Primary Care Provider Unavailabl e Reason for Referral * EXTERNAL (Routine) - Authorized/Booked Specialty Diagnoses / Procedures Referred By Yordan henderson Referred To Contact PAIN MANAGEMENT / Pain Management Procedures REFERRAL TO PAIN MANAGEMENT Scot Owen MD [address] [place] [address] External Pain Man Referral ID Status Reason Start Date Expiration Date V isits Requested Visits Authorized [id number] Authorized/B ooked 07/14/2021 10/21/2021 1 1 Encounter Details Date Type Department Care Team Description 07/14/2021 Pt. Non Urgent Medic al Question Adult Medicine - [place] [address] [place] [address] Evette Wade NP Social History Tobacco Use [...] week 07/12/2023 How often do you attend [facility] or buddhist services? Never 07/12/2023 Do you [...] filedocumented in this encounter Care Teams Clinical Services Assistant Relationship Specialty Start Date End Date Lukas Bradford MD PCP - General Internal Medicine 07/01/21 08/10/21 Jan Palomino DO PCP - General Internal Medicine 08/11/21 11/16/23 Letitia Khalil MD [address] [place] [address] [place] [id number] PCP - General Internal Medicine 11/17/23 06/21/24 [facility], Pcp [address] [place] [address] [place] [address] PCP - General Internal Medicine 06/22/24 Lane Valdes MD Specialist Cardiovascular Disease 01/14/22 Beti Greenwood MD [address] [place] [address] UROGYNECOLOGY 07/07/23 Juani Rhodes NP [address] [facility] [place] [address] Cardiology 07/07/23 documented as of this encounter
--- OUTSIDE RECORDS SUMMARY | 2025-05-24 08:40 | XMS_ITS | Encounter Summary ---
Author Organization [facility] Address [address] [place] [address] Care Team Providers Care Typewriter Assembly And Parts Inspector Name Role Phone Scot Owen MD Primary Care Provider Unavailable Lukas Bradford MD Primary Care Provider Jan Juárez DO Primary Care Provider Unavaila Lane Villalobos MD Unavailable Unavailable Beti Greenwood MD Unavailable Juani Rhodes NP Unavailable [phone] Letitia Khalil MD Primary Care Provider Un available [facility], Pcp Primary Care Provider Unavailabl e Reason for Visit * Reason Onset Date Comments Urine Drug Screen 01/14/2021 Encounter Details Date Type Department Care Team Description 01/14/2021 Telephone Adult [facility] - [address] [id number] Scot Owen MD Urine Drug Screen Social [...] a random urine drug screen in our [facility] by 01/15. The patient was also instructed that failure to complete this urine drug screen, as requested,would jeopardize their Controlled Substance Contract with [facility]. The patient expressed understanding of the instructions and confirmed that they will arrive by that date. documented in this encounter Plan of Treatment Not on file documented as of this encounter Visit Diagnoses Not on filedocumented in this encounter Care Teams Typewriter Assembly And Parts Inspector Relationship Specialty Start Date End Date Scot Owen MD PCP - General Internal Medicine 01/23/1606/30/21 Lukas Bradford MD PCP - General Internal Medicine 07/01/21 08/10/21 Jan Palomino DO PCP - General Internal Medicine 08/11/21 11/16/23 Letitia Khalil MD [address] [place] [address] [place] [address] PCP - General Internal Medicine 11/17/23 06/21/24 [facility], [address] [place] [address] PCP - General Internal Medicine 06/22/24 Lane Valdes MD Specialist Cardiovascular Disease 01/14/22 Beti Greenwood MD 4 [facility] [place] [address] UROGYNECOLOGY 07/07/23 Juani Rhodes NP [address] [facility] [place] [address] Cardiology 07/07/23 documented as of this encounter
--- OUTSIDE RECORDS SUMMARY | 2025-05-24 08:40 | XMS_ITS | Encounter Summary ---
[facility] Address [address] [place] [address] Care Team Providers Care Insole Bottom Filler Name Role Phone Scot Owen MD Primary Care Provider Unavailable Lukas Bradford MD Primary Care Provider Jan Juárez DO Primary Care Provider UnavailLane Banerjee MD Unavailable Unavailable Beti Greenwood MD Unavailable Juani Rhodes NP Unavailable [phone] Letitia Khalil MD Primary Care Provider Un available [facility], Pcp Primary Care Provider Unavailabl e Encounter Details Date Type Department Care Team Description 12/03/2020 [facility] Medical Records [address] [place] [address] Abstract, Provider Social History Tobacco Use Types [...] How often do you attend chur or rastafarian services? Never 07/12/2023 Do you [...] on filedocumented in this encounter Care Teams Insole Bottom Filler Relationship Specialty Start Date End Date Scot Owen MD PCP - General Internal Medicine 01/23/1606/30/21 Lukas Bradford MD PCP - General Internal Medicine 07/01/21 08/10/21 Jan Palomino DO PCP - General Internal Medicine 08/11/21 11/16/23 Letitia Khalil MD [address] [place] [address] [facility] [place] [address] PCP - General Internal Medicine 11/17/23 06/21/24 [facility], Pcp [address] [place] [address] [place] [address] PCP - General Internal Medicine 06/22/24 Lane Valdes MD Specialist Cardiovascular Disease 01/14/22 Beti Greenwood MD [address] [facility] [place] [address] UROGYNECOLOGY 07/07/23 Juani Rhodes NP [address] [facility] [place] [place] [address] Cardiology 07/07/23 documented as of this encounter
--- OUTSIDE RECORDS SUMMARY | 2025-05-24 08:41 | XMS_ITS | Encounter Summary ---
Author Organization [facility] Address [address] [place] [address] Care Team Providers Care Model Engine Mechanic Name Role Phone Scot Owen MD [...] Urgent Medic al Question Adult Medicine - [address] [address] Scot Owen MD Social History Tobacco Use [...] How often do you attend chur or tenriism services? Never 07/12/2023 Do you [...] on filedocumented in this encounter Care Teams Model Engine Mechanic Relationship Specialty Start Date End Date Scot Owen MD PCP - General Internal Medicine 01/23/1606/30/21 Lukas Bradford MD PCP - General Internal Medicine 07/01/21 08/10/21 Jan Palomino DO PCP - General Internal Medicine 08/11/21 11/16/23 Letitia Khalil MD [address] [place] [address] [place] [address] PCP - General Internal Medicine 11/17/23 06/21/24 Counts Include [address] [facility], [place] [address] [place] [address] [facility] [facility] [address] PCP - General Internal Medicine 06/22/24 Lane Valdes MD Specialist Cardiovascular Disease 01/14/22 Beti Greenwood MD 4 [facility] [place] [address] UROGYNECOLOGY 07/07/23 Juani Rhodes NP 4 [facility] [place] [address] Cardiology 07/07/23 documented as of this encounter
--- OUTSIDE RECORDS SUMMARY | 2025-05-24 08:41 | XMS_ITS | Encounter Summary ---
Author Organization [facility] Address [address] [place] [address] Care Team Providers Care Reimbursement Analyst Name Role Phone AshliAlexel Abebe Primary Care Provider UnaKristina Herrera MD Primary Care Provider UnavailScot Hansen MD Primary Care Provider Unavailable Lukas Bradford MD Primary Care Provider Jan Juárez DO Primary Care Provider Unavaila Lane Villalobos MD Unavailable Unavailable Beti Greenwood MD Unavailable Juani Rhodes NP Unavailable [phone] Letitia Khalil MD Primary Care Provider Un available [facility], Pcp Primary Care Provider Unavailabl e Encounter Details Date Type Department Care Team Description 10/02/2012 Orders Only Physiatry - [address] [address] Makayla Giraldo PA-C Lumbar radiculopathy (Primary Dx); Lumbago Social History Tobacco Use Types Packs/Day [...] week 07/12/2023 How often do you attend [facility] or restorationism services? Never 07/12/2023 Do you [...] as of this encounter Plan of Treatment Scheduled Orders Name Type Priority Associated Diagnoses Orde r Schedule PHYSIATRY PROCEDURE PHYSIATRY Routine Lumbago Lumbar radiculopathy Ordered: 10/02/2012 documented as of this encounter Visit Diagnoses Diagnosis Lumbar radiculopathy- Primary Thoracic or lumbosacral neuritis or radiculitis, unspecified Lumbago documented in this encounter Care Teams Reimbursement Analyst Relationship Specialty Start Date End Date Samuel Cornelius PCP - General 08/29/05 12/24/15 Kristina Chatman MD PCP - General Internal Medicine 12/25/15 01/22/16 Scot Owen MD PCP - General Internal Medicine 01/23/1606/30/21 Lukas Bradford MD PCP - General Internal Medicine 07/01/21 08/10/21 Jan Palomino DO PCP - General Internal Medicine 08/11/21 11/16/23 Letitia Khalil MD [address] [facility] [place] [address] PCP - General Internal Medicine 11/17/23 06/21/24 [facility], Pcp [address] [place] [address] [place] [address] PCP - General Internal Medicine 06/22/24 Lane Valdes MD Specialist Cardiovascular Disease 01/14/22 Beti Greenwood MD [address] [place] [address] [place] [address] UROGYNECOLOGY 07/07/23 Juani Rhodes NP [address] [place] [address] [place] [address] Cardiology 07/07/23 documented as of this encounter
--- OUTSIDE RECORDS SUMMARY | 2025-05-24 08:41 | XMS_ITS | Encounter Summary ---
Author Organization [facility] Address [address] [place] [address] Care Team Providers Care Hose Finisher Name Role Phone Jan Palomino DO Primary Care Provider UnavailLane Banerjee MD Unavailable Unavailable Beti Greenwood MD Unavailable Juani Rhodes NP Unavailable [phone] Letitia Khalil MD Primary Care Provider Un available [facility], Pcp Primary Care Provider Unavailabl e Encounter Details Date Type Department Care Team Description 04/22/2022 Pt. Non Urgent Medic al Question Adult Medicine - [address] [address] Jan Palomino DO Social History Tobacco Use [...] on filedocumented in this encounter Care Teams Hose Finisher Relationship Specialty Start Date End Date Jan Palomino DO PCP - General Internal Medicine 08/11/21 11/16/23 Letitia Khalil MD [address] [facility] [place] [address] PCP - General Internal Medicine 11/17/23 06/21/24 [facility], Pcp [address] [facility] [place] [address] PCP - General Internal Medicine 06/22/24 Lane Valdes MD Specialist Cardiovascular Disease 01/14/22 Beti Greenwood MD [address] [facility] [place] [address] UROGYNECOLOGY 07/07/23 Juani Rhodes NP [address] [facility] [place] [address] Cardiology 07/07/23 documented as of this encounter
--- OUTSIDE RECORDS SUMMARY | 2025-05-24 08:41 | XMS_ITS | Encounter Summary ---
Author Organization [facility] Address [address] [place] [address] Care Team Providers Care Sales Project Manager Name Role Phone Samuel Cornelius Primary Care Provider Kristina Gilbert MD Primary Care Provider UnavailScot Hansen MD Primary Care Provider Unavailable Lukas Bradford MD Primary Care Provider Jan Juárez DO Primary Care Provider Unavaila Lane Villalobos MD Unavailable Unavailable Beti Greenwood MD Unavailable Juani Rhodes NP Unavailable [phone] Letitia Khalil MD Primary Care Provider Un available [facility]cp Primary Care Provider Unavailabl e Reason for Visit * Reason Onset Date Comments Urine Drug Screen 11/08/2012 Encounter Details Date Type Department Care Team Description 11/08/2012 Telephone Adult [address] [address] Samuel Cornelius Urine Drug Screen Social History Tobacco Use [...] Telephone Encounter - Selene Boyle L.P.N. - 11/09/2012 8:40 AM EDT Component Value Date UROXYCODONE POSITIVE 11/08/2012 URBENZO NEGATIVE 11/08/2012 URAMPHETAMIN NEGATIVE 11/08/2012 URMARIJUANA NEGATIVE 11/08/2012 UROPIATES NEGATIVE 11/08/2012 URBARBITUATE NEGATIVE 11/08/2012 URCOCAINE NEGATIVE 11/08/2012 LHYDROCO NOT DETECTED 03/02/2012 LHM NOT DETECTED 03/02/2012 HYDROCODONE NEGATIVE 03/19/2010 * Telephone Encounter - Jessica Morales M.A. - 11/08/2012 3:34 PM EDT Pt was notified to complete a random urine drug screen in our [facility] by 11/09/12. The patientwas also instructed that failure to complete this urine drug screen, as requested, would jeopardizetheir Controlled Substance Contract with [facility]. The patient expressed understanding of the instructions and confirmed that they will arrive by that date. * Telephone Encounter - Jessica Morales M.A. - 11/08/2012 3:01 PM EDT tc Pt needs to be advised of UDS documented in this encounter Plan of Treatment Not on file documented as of this encounter Results * ASSAY, DIHYDROCODEINONE (11/08/2012 3:24 PM EDT) HYDROCODONE UR GCMS NOT DETECTED NOTDETECTED [facility] [employer] Comment: TEST PERFORMED AT: [employer] [address] [facility] [address] HYDROMORPHONE UR GCMS NOT DETECTED NOTDETECTED [facility] Comment: TEST PERFORMED AT: [employer] [address] [facility] [address] 11/08/2012 3:24 PM EDT 11/08/2012 3:25 PM EDT Samuel Cornelius LAB [facility] [employer] * (ABNORMAL) OXYCODONE, URINE (11/08/2012 3:24 PM EDT) URINE OXYCODONE LEVEL POSITIVE( A) NEGATIVE [facility] Comment: Semi-quantitative urine assay for screening purposes only. Unconfirmed screening results should not be used for non-medical purposes. ALTERNATE METHOD CONFIRMATION DONE UPON REQUEST ONLY 11/08/2012 3:24 PM EDT 11/08/2012 3:25 PM EDT Samuel BANEGAS Performing Organization Address City/[facility]/ZIP Co de Phone Number [facility] [address] [facility] * DRUG OF ABUSE SCREEN (11/08/2012 3:24 PM EDT) AMPHETAMINE, URINE NEGATIVE NEGATIVE [facility] BARBITURATES, URINE NEGATIVE NEGATIVE [facility] BENZODIAZEPINE , URINE NEGATIVE NEGATIVE [facility] COCAINE, URINE NEGATIVE NEGATIVE [facility] OPIATES, URINE NEGATIVE NEGATIVE [facility] MARIJUANA(THC) , URINE NEGATIVE NEGATIVE [facility] 11/08/2012 3:24 PM EDT 11/08/2012 3:25 PM EDT Samuel Cornelius LAB Performing Organization Address [facility] Co de Phone Number [facility] [address] [facility] documented in this encounter Visit Diagnoses Diagnosis Encounter for long-term (current) use of other medications- Primary documented in this encounter Care Teams Sales Project Manager Relationship Specialty Start Date End Date Samuel Cornelius PCP - General 08/29/05 12/24/15 Kristina Chatman MD PCP - General Internal Medicine 12/25/15 01/22/16 Scot Owen MD PCP - General Internal Medicine 01/23/1606/30/21 Lukas Bradford MD PCP - General Internal Medicine 07/01/21 08/10/21 Jan Palomino DO PCP - General Internal Medicine 08/11/21 11/16/23 Letitia Khalil MD [address] [place] [place] [address] [place] [address] PCP - General Internal Medicine 11/17/23 06/21/24 [facility] Pcp [address] [place], [place] [address] [address] PCP - General Internal Medicine 06/22/24 Lane Valdes MD Specialist Cardiovascular Disease 01/14/22 Beti Greenwood MD [address] [place] [address] [place] [address] UROGYNECOLOGY 07/07/23 Juani Rhodes, DIRECTOR OF ASSESSING [address] [facility] [place] [address] Cardiology 07/07/23 documented as of this encounter
--- OUTSIDE RECORDS SUMMARY | 2025-05-24 08:41 | XMS_ITS | Encounter Summary ---
Author Organization [facility] Address [address] [place] [address] Care Team Providers Care Tax Manager Cpa Name Role Phone Scot Owen MD Primary Care Provider Unavailable Lukas Bradford MD Primary Care Provider Jan Juárez DO Primary Care Provider UnavailLane Banerjee MD Unavailable Unavailable Beti Greenwood MD Unavailable Juani Rhodes NP Unavailable [phone] Letitia Khalil MD Primary Care Provider Un available [facility], Pcp Primary Care Provider Unavailabl e Encounter Details Date Type Department Care Team Description 06/15/2017 [facility] Medical Records [address] [place] [address] Abstract, Provider Social History Tobacco Use Types [...] on filedocumented in this encounter Care Teams Tax Manager Cpa Relationship Specialty Start Date End Date Scot Owen MD PCP - General Internal Medicine 01/23/1606/30/21 Lukas Bradford MD PCP - General Internal Medicine 07/01/21 08/10/21 Jan Palomino DO PCP - General Internal Medicine 08/11/21 11/16/23 Letitia Khalil MD [address] [place] [address] [place] [address] PCP - General Internal Medicine 11/17/23 06/21/24 [facility] Pcp [address] [place] [address] [place] [address] PCP - General Internal Medicine 06/22/24 Lane Valdes MD Specialist Cardiovascular Disease 01/14/22 Beti Greenwood MD [address] [place] [address] [place] [address] UROGYNECOLOGY 07/07/23 Juani Rhodes NP [address] [facility] [place] [address] Cardiology 07/07/23 documented as of this encounter
--- OUTSIDE RECORDS SUMMARY | 2025-05-24 08:41 | XMS_ITS | Encounter Summary ---
Author Organization [facility] Address [address] [place] [address] Care Team Providers Care Woodworker Helper Name Role Phone Samuel Cornelius Primary Care Provider Kristina Gilbert MD Primary Care Provider UnavailScot Hansen MD Primary Care Provider Unavailable Lukas Bradford MD Primary Care Provider Jan Juárez DO Primary Care Provider Unavaila Lane Villalobos MD Unavailable Unavailable Beti Greenwood MD Unavailable Juani Rhodes NP Unavailable [phone] Letitia Khalil MD Primary Care Provider Un available [facility], Pcp Primary Care Provider Unavailabl e Reason for Visit * Reason Comments E-prescribe Rx Request Encounter Details Date Type Department Care Team Description 11/06/2012 Refill Adult Medicine [address] [address] Samuel Cornelius E-prescribe Rx Request Social History [...] her PCP and potentially beput on a [facility] contract before I can refill the medication [...] DAY Patients current insurance carrier is: Payor: [facility]/HMO FFS Plan: [id number] BLUE NE $20 Product Type:HMO [id number] documented in this encounter Plan of Treatment Not on file documented as of this encounter Visit Diagnoses Not on filedocumented in this encounter Care Teams Woodworker Helper Relationship Specialty Start Date End Date Samuel Cornelius PCP - General 08/29/05 12/24/15 Kristina Chatman MD PCP - General Internal Medicine 12/25/15 01/22/16 Scot Owen MD PCP - General Internal Medicine 01/23/1606/30/21 Lukas Bradford MD PCP - General Internal Medicine 07/01/21 08/10/21 Jan Palomino DO PCP - General Internal Medicine 08/11/21 11/16/23 Letitia Khalil MD [address] [facility] [place] [address] PCP - General Internal Medicine 11/17/23 06/21/24 [facility], Pcp [address] [place] [address] [place] [address] PCP - General Internal Medicine 06/22/24 Lane Valdes MD Specialist Cardiovascular Disease 01/14/22 Beti Greenwood MD [address] [facility] [place] [address] UROGYNECOLOGY 07/07/23 Juani Rhodes, ISAC [address] [facility] [place] [address] Cardiology 07/07/23 documented as of this encounter
--- OUTSIDE RECORDS SUMMARY | 2025-05-24 08:41 | XMS_ITS | Encounter Summary ---
Author Organization [facility] Address [address] [place] [address] Care Team Providers Care Ballpoint Pen Assembly Machine Operator Name Role Phone Jan Palomino DO Primary Care Provider UnavailLane Banerjee MD Unavailable Unavailable Beti Greenwood MD Unavailable Juani Rhodes NP Unavailable [phone] Letitia Khalil MD Primary Care Provider Un available [facility], Pcp Primary Care Provider Unavailabl e Encounter Details Date Type Department Care Team Description 04/21/2022 Pt. Non Urgent Medic al Question Adult Medicine - [address] [address] Jan Palomino DO Social History Tobacco Use [...] about 2 weeks, I went in to [facility] emergency room..They did a cat scan and told me they aren't a doctor office and i have to follow up with my primarycare dr. He gave me a referral to a GI dr at [facility] and i called. They said the earliest [...] on filedocumented in this encounter Care Teams Ballpoint Pen Assembly Machine Operator Relationship Specialty Start Date End Date Jan Palomino DO PCP - General Internal Medicine 08/11/21 11/16/23 Letitia Khalil MD [address] [place] [address] [place] [address] PCP - General Internal Medicine 11/17/23 06/21/24 [facility], [address] [place] [address] PCP - General Internal Medicine 06/22/24 Lane Valdes MD Specialist Cardiovascular Disease 01/14/22 Beti Greenwood MD 4 [facility] [place] [address] UROGYNECOLOGY 07/07/23 Juani Rhodes, ISAC [address] [facility] [place] [address] Cardiology 07/07/23 documented as of this encounter
--- OUTSIDE RECORDS SUMMARY | 2025-05-24 08:41 | XMS_ITS | Clinical Summary ---
Author Organization [facility] Address [address] [place] [address] Care Team Providers Care Flakeboard Line Tender Name Role Phone Jan Palomino DO Primary Care Provider [phone] Allergies Active Allergy Reactions Criticality Noted Date [...] Overview: Added automatically from request for surgery [id number] Vaginal atrophy 03/30/2023 Overview: Added automatically from request for surgery [id number] Social History Tobacco Use Types Packs/Day Years [...] Tdap) 10/25/2022 10/25/2012 COVID-19 Vaccine ( season) 2025 01/06/2022, 11/25/2020, 11/04/2020 Influenza Vaccine (#1) 2025 [...] this topic Medical Devices Implanted Type Area Truck Driver Supervisor Device Identifier Shelf Expiration Date Model / Serial / Lot System Gynecare Tvt Exact 3mm Troc Retro Pubic Urnry Incont [facility] [id number] - [id number] Implanted:Qty: 1 on 05/24/2023 by Beti [place] [facility] N/A: Vagina [facility] [employer] 12/27/2023 TVTRL / / [id number] Care Teams Flakeboard Line Tender Relationship Specialty Start Date End Date Jan Palomino DO [address] [place] [address] PCP - General Family Medicine 05/18/23
--- OUTSIDE RECORDS SUMMARY | 2025-05-24 08:41 | XMS_ITS | Encounter Summary ---
Author Organization [facility] Address [address] [place] [address] Care Team Providers Care Machine Coil Assembler Name Role Phone Jan Palomino DO Primary Care Provider UnavailLane Banerjee MD Unavailable Unavailable Beti Greenwood MD Unavailable Juani Rhodes NP Unavailable [phone] Letitia Khalil MD Primary Care Provider Un available [facility], Pcp Primary Care Provider Unavailabl e Encounter Details Date Type Department Care Team Description 04/21/2022 SCAN Medical Records [address] [place] [id number] [place] [address] Social History Tobacco Use Types Packs/Day Years [...] Date/Time Associated Diagnosis Comments OUTSIDE LAB Routine 04/21/2022 documented in this encounter Results * OUTSIDE LAB (04/21/2022) Provider Default LAB documented in this encounter Visit Diagnoses Not on filedocumented in this encounter Care Teams Machine Coil Assembler Relationship Specialty Start Date End Date Jan Palomino DO PCP - General Internal Medicine 08/11/21 11/16/23 Letitia Khalil MD 444 [facility] [address] PCP - General Internal Medicine 11/17/23 06/21/24 [facility], Pcp [address] [place], [place] [address] [place] [place] [address] PCP - General Internal Medicine 06/22/24 Lane Valdes MD Specialist Cardiovascular Disease 01/14/22 Beti Greenwood MD [address] [facility] [place] [address] UROGYNECOLOGY 07/07/23 Juani Rhodes, ISAC 444 [facility] [place] [address] Cardiology 07/07/23 documented as of this encounter
--- OUTSIDE RECORDS SUMMARY | 2025-05-24 08:41 | XMS_ITS | Encounter Summary ---
Author Organization [facility] Address [address] [place] [address] Care Team Providers Care Research Greenhouse Supervisor Name Role Phone KennyelikennethAlexel Abebe Primary Care Provider Kristina Gilbert MD Primary Care Provider UnavailScot Hansen MD Primary Care Provider Unavailable Lukas Bradford MD Primary Care Provider Jan Juárez DO Primary Care Provider Unavaila Lane Villalobos MD Unavailable Unavailable Beti Greenwood MD Unavailable Juani Rhodes NP Unavailable [phone] Letitia Khalil MD Primary Care Provider Un available [facility], Pcp Primary Care Provider Unavailabl e Reason for Visit * Reason Onset Date Comments Special Procedure 09/29/2012 Encounter Details Date Type Department Care Team Description 09/29/[address] [address] Makayla Giraldo PA-C Special Procedure Social History [...] week 07/12/2023 How often do you attend [facility] or buddhism services? Never 07/12/2023 Do you belong to any clubs o r organizations such as confucianist groups, unions, fraMuzico International or athletic groups, or school groups? Yes [...] to have a Bilateral L4 TFE at [facility] Last one in 06/09 (Appointment Booked for 10/06/2012) documented in this encounter Plan of Treatment Not on file documented as of this encounter Visit Diagnoses Not on filedocumented in this encounter Care Teams Research Greenhouse Supervisor Relationship Specialty Start Date End Date Samuel Cornelius PCP - General 08/29/05 12/24/15 Kristina Chatman MD PCP - General Internal Medicine 12/25/15 01/22/16 Scot Owen MD PCP - General Internal Medicine 01/23/1606/30/21 Lukas Bradford MD PCP - General Internal Medicine 07/01/21 08/10/21 Jan Palomino DO PCP - General Internal Medicine 08/11/21 11/16/23 Letitia Khalil MD 4 [facility] [place] [address] PCP - General Internal Medicine 11/17/23 06/21/24 [facility], [address] [place] [address] PCP - General Internal Medicine 06/22/24 Lane Valdes MD Specialist Cardiovascular Disease 01/14/22 Beti Greenwood MD [address] [facility] [place] [address] UROGYNECOLOGY 07/07/23 Juani Rhodes NP [address] [facility] [place] [address] Cardiology 07/07/23 documented as of this encounter
--- OUTSIDE RECORDS SUMMARY | 2025-05-24 08:41 | XMS_ITS | Encounter Summary ---
Author Organization [facility] Address [address] [place] [address] Care Team Providers Care Steam Bone Press Tender Name Role Phone Scot Owen MD Primary Care Provider Unavailable Lukas Bradford MD Primary Care Provider Jan Juárez DO Primary Care Provider Unavaila Lane Villalobos MD Unavailable Unavailable Beti Greenwood MD Unavailable Juani Rhodes NP Unavailable [phone] Letitia Khalil MD Primary Care Provider Un available [facility], Pcp Primary Care Provider Unavailabl e Reason for Visit * Reason Onset Date Comments Exhibit Display Representative Feedback 03/28/2018 Dr Gtz Encounter Details Date Type Department Care Team Description 03/28/2018 [facility] [address] [address] Niels Gtz DO Cro Feedback (Dr Gtz) Social History Tobacco Use Types Packs/Day Years [...] How often do you attend chur or judaism services? Never 07/12/2023 Do you [...] Miscellaneous Notes * Telephone Encounter - Karen Sheets - 03/28/2018 12:20 PM EDT Referral entered and linked Auth# [id number] * Telephone Encounter - Kristina Samuels - 03/28/2018 12:13 PM EDT Request for a referral to a [facility] Specialist for a patient with a [facility] PCP. If patient does NOT have a [facility] PCP they must obtain a referral from their PCP before being seen-do not submit request to Referrals department-contact patient. Gerald GALLARDO and James GALLARDO should not see patients with community PCP's as they are not billed as specialists. Specialty patient is being referred to: PHYSIATRY Name of Specialist patient is seeing: DR GTZ Reason/diagnosis for visit: 04/10/18 Date of appoinment: BACK AND HIP PAIN If retro, date referral needs to start: N/A Scot Owen Payor: [facility]/O FFS / Plan: [place] $15 / Product Type: HMO [id number] documented in this encounter Plan of Treatment Not on file documented as of this encounter Visit Diagnoses Not on filedocumented in this encounter Care Teams Steam Bone Press Tender Relationship Specialty Start Date End Date Scot Owen MD PCP - General Internal Medicine 01/23/1606/30/21 Lukas Bradford MD PCP - General Internal Medicine 07/01/21 08/10/21 Jan Palomino DO PCP - General Internal Medicine 08/11/21 11/16/23 Letitia Khalil MD [address] [place] [address] [place] [address] PCP - General Internal Medicine 11/17/23 06/21/24 [facility], [address] [place] [address] PCP - General Internal Medicine 06/22/24 Lane Valdes MD Specialist Cardiovascular Disease 01/14/22 Beti Greenwood MD [address] [place] [address] [facility] [place] [address] UROGYNECOLOGY 07/07/23 Juani Rhodes NP 4 [facility] [place] [address] Cardiology 07/07/23 documented as of this encounter
--- OUTSIDE RECORDS SUMMARY | 2025-05-24 08:42 | XMS_ITS | Encounter Summary ---
Author Organization [facility] Address [address] [place] [address] Care Team Providers Care Cardroom Supervisor Name Role Phone Samuel Cornelius Primary Care Provider UnaKristina Herrera MD Primary Care Provider UnavailScot Hansen MD Primary Care Provider Unavailable Lukas Bradford MD Primary Care Provider Jan Juárez DO Primary Care Provider Unavaila Lane Villalobos MD Unavailable Unavailable Beti Greenwood MD Unavailable Juani Rhodes NP Unavailable [phone] Letitia Khalil MD Primary Care Provider Un available [facility], Pcp Primary Care Provider Unavailabl e Encounter Details Date Type Department Care Team Description 10/26/2013 Pt. Non Urgent Medical Question Adult Medicine - [address] [address] Samuel Cornelius Social History Tobacco Use Types [...] r organizations such as methodist groups, unions, fraConnectToHome or athletic groups, or school groups? Yes [...] so tired of not being listen to. Barron Wright documented in this encounter Plan of Treatment Not on file documented as of this encounter Visit Diagnoses Not on filedocumented in this encounter Care Teams Cardroom Supervisor Relationship Specialty Start Date End Date Samuel Cornelius PCP - General 08/29/05 12/24/15 Kristina Chatman MD PCP - General Internal Medicine 12/25/15 01/22/16 Scot Owen MD PCP - General Internal Medicine 01/23/1606/30/21 Lukas Bradford MD PCP - General Internal Medicine 07/01/21 08/10/21 Jan Palomino DO PCP - General Internal Medicine 08/11/21 11/16/23 Letitia Khalil MD [address] [place] [address] [place] [address] PCP - General Internal Medicine 11/17/23 06/21/24 [facility], Pcp [address] [place] [address] [place] [address] PCP - General Internal Medicine 06/22/24 Lane Valdes MD Specialist Cardiovascular Disease 01/14/22 Beti Greenwood MD [address] [place] [address] [place] [address] UROGYNECOLOGY 07/07/23 Juani Rhodes NP 4 [facility] [place] [address] Cardiology 07/07/23 documented as of this encounter
--- OUTSIDE RECORDS SUMMARY | 2025-05-24 08:42 | XMS_ITS | Encounter Summary ---
Author Organization [facility] Address [address] [place] [address] Care Team Providers Care Granite Polisher Apprentice Name Role Phone Jan Palomino DO Primary Care Provider UnavailLane Banerjee MD Unavailable Unavailable Beti Greenwood MD Unavailable Juani Rhodes NP Unavailable [phone] Letitia Khalil MD Primary Care Provider Un available [facility], Pcp Primary Care Provider Unavailabl e Encounter Details Date Type Department Care Team Description 01/07/2022 Pt. Non Urgent Medic al Question Adult Medicine - [address] [address] Jan Palomino DO Social History Tobacco Use [...] How often do you attend chur or moravian services? Never 07/12/2023 Do you [...] on filedocumented in this encounter Care Teams Granite Polisher Apprentice Relationship Specialty Start Date End Date Jan Palomino, PCP - General Internal Medicine 08/11/21 11/16/23 Letitia Khalil MD [address] [place] [address] [place] [address] PCP - General Internal Medicine 11/17/23 06/21/24 [facility], [address] [place] [address] PCP - General Internal Medicine 06/22/24 Lane Valdes MD Specialist Cardiovascular Disease 01/14/22 Beti Greenwood MD [address] [place] [address] [place] [address] UROGYNECOLOGY 07/07/23 Juani Rhodes NP [address] [facility] [place] [address] Cardiology 07/07/23 documented as of this encounter
--- OUTSIDE RECORDS SUMMARY | 2025-05-24 08:42 | XMS_ITS | Encounter Summary ---
Author Organization [facility] Address [address] [place] [address] Care Team Providers Care Montessori Lead Teacher Name Role Phone Scot Owen MD Primary Care Provider Unavailable Lukas Bradford MD Primary Care Provider Jan Juárez DO Primary Care Provider UnavailLane Banerjee MD Unavailable Unavailable Beti Greenwood MD Unavailable Juani Rhodes NP Unavailable [phone] Letitia Khalil MD Primary Care Provider Un available [facility], Pcp Primary Care Provider Unavailabl e Encounter Details Date Type Department Care Team Description 08/18/2017 [facility] Medical Records [address] [place] [address] Abstract, Provider Social History Tobacco Use Types [...] on filedocumented in this encounter Care Teams Montessori Lead Teacher Relationship Specialty Start Date End Date Scot Owen MD PCP - General Internal Medicine 01/23/1606/30/21 Lukas Bradford MD PCP - General Internal Medicine 07/01/21 08/10/21 Jan Palomino DO PCP - General Internal Medicine 08/11/21 11/16/23 Letitia Khalil MD [address] [place] [address] [place] [address] PCP - General Internal Medicine 11/17/23 06/21/24 [facility] Pcp [address] [place] [address] [place] [address] PCP - General Internal Medicine 06/22/24 Lane Valdes MD Specialist Cardiovascular Disease 01/14/22 Beti Greenwood MD [address] [place] [address] [place] [address] UROGYNECOLOGY 07/07/23 Juani Rhodes NP 444 [facility] [place] [address] Cardiology 07/07/23 documented as of this encounter
--- OUTSIDE RECORDS SUMMARY | 2025-05-24 08:42 | XMS_ITS | Encounter Summary ---
Author Organization [facility] Address [address] [place] [address] Care Team Providers Care Forepart Reducer Name Role Phone Scot Owen MD Primary Care Provider Unavailable Lukas Bradford MD Primary Care Provider Jan Juárez DO Primary Care Provider UnavailLane Banerjee MD Unavailable Unavailable Beti Greenwood MD Unavailable Juani Rhodes NP Unavailable [phone] Letitia Khalil MD Primary Care Provider Un available [facility], Pcp Primary Care Provider Unavailabl e Encounter Details Date Type Department Care Team Description 03/29/2017 [facility]rolled [facility] Contract Medical Records [address] [place] [address] Abstract, Provider Social History Tobacco Use Types [...] on filedocumented in this encounter Care Teams Forepart Reducer Relationship Specialty Start Date End Date Scot Owen MD PCP - General Internal Medicine 01/23/1606/30/21 Lukas Bradford MD PCP - General Internal Medicine 07/01/21 08/10/21 Jan Palomino DO PCP - General Internal Medicine 08/11/21 11/16/23 Letitia Khalil MD [address] [place] [address] [place] [address] PCP - General Internal Medicine 11/17/23 06/21/24 [facility], Pcp [address] [place] [address] [place] [address] PCP - General Internal Medicine 06/22/24 Lane Valdes MD Specialist Cardiovascular Disease 01/14/22 Beti Greenwood MD [address] [place] [address] [place] [address] UROGYNECOLOGY 07/07/23 Juani Rhodes NP 444 [facility] [place] [address] Cardiology 07/07/23 documented as of this encounter
--- OUTSIDE RECORDS SUMMARY | 2025-05-24 08:42 | XMS_ITS | Encounter Summary ---
Author Organization [facility] Address [address] [place] [address] Care Team Providers Care Pull Tab Dealer Name Role Phone Scot Owen MD Primary Care Provider Unavailable Lukas Bradford MD Primary Care Provider Jan Juárez DO Primary Care Provider UnavailLane Banerjee MD Unavailable Unavailable Beti Greenwood MD Unavailable Juani Rhodes NP Unavailable [phone] Letitia Khalil MD Primary Care Provider Un available [facility], Pcp Primary Care Provider Unavailabl e Encounter Details Date Type Department Care Team Description 06/30/2016 [facility] Medical Records [address] [place] [address] Abstract, Provider Social History Tobacco Use Types [...] often do you attend chur ch or mandaen services? Never 07/12/2023 Do you belong to [...] on filedocumented in this encounter Care Teams Pull Tab Dealer Relationship Specialty Start Date End Date Scot Owen MD PCP - General Internal Medicine 01/23/1606/30/21 Lukas Bradford MD PCP - General Internal Medicine 07/01/21 08/10/21 Jan Palomino DO PCP - General Internal Medicine 08/11/21 11/16/23 Letitia Khalil MD [address] [place] [address] [place] [address] PCP - General Internal Medicine 11/17/23 06/21/24 [facility] Pcp [address] [place] [address] [place] [address] PCP - General Internal Medicine 06/22/24 Lane Valdes MD Specialist Cardiovascular Disease 01/14/22 Beti Greenwood MD [address] [place] [address] [place] [address] UROGYNECOLOGY 07/07/23 Juani Rhodes NP 444 [facility] [place] [address] Cardiology 07/07/23 documented as of this encounter
--- OUTSIDE RECORDS SUMMARY | 2025-05-24 08:42 | XMS_ITS | Encounter Summary ---
Author Organization [facility] Address [address] [place] [address] Care Team Providers Care Trucking Contractor Name Role Phone Scot Owen MD Primary Care Provider Unavailable Lukas Bradford MD Primary Care Provider Jan Juárez DO Primary Care Provider UnavailLane Banerjee MD Unavailable Unavailable Beti Greenwood MD Unavailable Juani Rhodes NP Unavailable [phone] Letitia Khalil MD Primary Care Provider Un available [facility], Pcp Primary Care Provider Unavailabl e Encounter Details Date Type Department Care Team Description 09/29/2016 [facility] Medical Records [address] [place] [address] Abstract, Provider Social History Tobacco Use Types [...] on filedocumented in this encounter Care Teams Trucking Contractor Relationship Specialty Start Date End Date Scot Owen MD PCP - General Internal Medicine 01/23/1606/30/21 Lukas Bradford MD PCP - General Internal Medicine 07/01/21 08/10/21 Jan Palomino DO PCP - General Internal Medicine 08/11/21 11/16/23 Letitia Khalil MD [address] [place] [address] [place] [address] PCP - General Internal Medicine 11/17/23 06/21/24 [facility] Pcp [address] [place] [address] [place] [address] PCP - General Internal Medicine 06/22/24 Lane Valdes MD Specialist Cardiovascular Disease 01/14/22 Beti Greenwood MD [address] [place] [address] [place] [address] UROGYNECOLOGY 07/07/23 Juani Rhoeds NP [address] [facility] [place] [address] Cardiology 07/07/23 documented as of this encounter
--- OUTSIDE RECORDS SUMMARY | 2025-05-24 08:42 | XMS_ITS | Encounter Summary ---
[facility] Organization [facility] Address [address] [place] [address] Care Team Providers Care Administrative Underwriter Name Role Phone Scot Owen MD Primary [...] Team Description 01/18/2017 Refill Adult Medicine - [address] [address] Scot Owen MD Social History Tobacco Use [...] per tablet [Scot Owen MD] Preferred pharmacy: [id number] [address] Comment: documented in this encounter Plan of Treatment Not on file documented as of this encounter Visit Diagnoses Not on filedocumented in this encounter Care Teams Administrative Underwriter Relationship Specialty Start Date End Date Scot Owen MD PCP - General Internal Medicine 01/23/1606/30/21 Lukas Bradford MD PCP - General Internal Medicine 07/01/21 08/10/21 Jan Palomino DO PCP - General Internal Medicine 08/11/21 11/16/23 Letitia Khalil MD [address] [place] [address] [place] [address] PCP - General Internal Medicine 11/17/23 06/21/24 [facility], Pcp [address] [place] [address] [place] [address] PCP - General Internal Medicine 06/22/24 Lane Valdes MD Specialist Cardiovascular Disease 01/14/22 Beti Greenwood MD [address] [place], [place] [address], [place] [address] UROGYNECOLOGY 07/07/23 Juani Rhodes, ISAC [address] [facility] [place] [address] Cardiology 07/07/23 documented as of this encounter
--- OUTSIDE RECORDS SUMMARY | 2025-05-24 08:42 | XMS_ITS | Encounter Summary ---
[facility] Organization [facility] Address [address] [place] [address] Care Team Providers Care Dairy Technologist Name Role Phone Jan Palomino DO Primary Care Provider UnavailLane Banerjee MD Unavailable Unavailable Beti Greenwood MD Unavailable Juani Rhodes NP Unavailable [phone] Letitia Khalil MD Primary Care Provider Un available [facility], Pcp Primary Care Provider Unavailabl e Encounter Details Date Type Department Care Team Description 03/16/2022 Pt. Non Urgent Medic al Question Adult Medicine - [place] [address] [place] [address] Yelena Garcia MD [address] [place] [address] Social History Tobacco Use Types Packs/Day Years [...] any clubs o r organizations such as oriental orthodox groups, unions, fraternal or athletic groups, [...] on filedocumented in this encounter Care Teams Dairy Technologist Relationship Specialty Start Date End Date Jan Palomino DO PCP - General Internal Medicine 08/11/21 11/16/23 Letitia Khalil MD 4 [facility] [place] [place] [address] PCP - General Internal Medicine 11/17/23 06/21/24 [facility], Pcp [address] [place], [place] [address] [place] [address] PCP - General Internal Medicine 06/22/24 Lane Valdes MD Specialist Cardiovascular Disease 01/14/22 Beti Greenwood MD 4 [facility] [place] [address] UROGYNECOLOGY 07/07/23 Juani Rhodes, ISAC 444 [facility] [place] [address] Cardiology 07/07/23 documented as of this encounter
--- OUTSIDE RECORDS SUMMARY | 2025-05-24 08:42 | XMS_ITS | Encounter Summary ---
[facility] Organization [facility] Address [address] [place] [address] Care Team Providers Care Loading Shovel Oiler Name Role Phone Lukas Bradford MD Primary Care Provider Jan Juárez DO Primary Care Provider Lane Macario MD Unavailable Unavailable Beti Greenwood MD Unavailable Juani Rhodes NP Unavailable [phone] Letitia Khalil MD Primary Care Provider Un available [facility], Pcp Primary Care Provider Unavailabl e Encounter Details Date Type Department Care Team Description 08/03/2021 Hospice Executive Director Report Medical Records [address] [place] [address] Abstract, Provider Social History Tobacco Use Types [...] on filedocumented in this encounter Care Teams Loading Shovel Oiler Relationship Specialty Start Date End Date Lukas Bradford MD PCP - General Internal Medicine 07/01/21 08/10/21 Jan Palomino DO PCP - General Internal Medicine 08/11/21 11/16/23 Letitia Khalil MD 4 [facility] [place] [address] PCP - General Internal Medicine 11/17/23 06/21/24 [facility], Pcp [address] [place], [place] [address] [address] PCP - General Internal Medicine 06/22/24 Lane Valdes MD Specialist Cardiovascular Disease 01/14/22 Beti Greenwood MD 4 [facility] [place] [address] UROGYNECOLOGY 07/07/23 Juani Rhodes, ISAC 444 [facility] [place] [address] Cardiology 07/07/23 documented as of this encounter
--- OUTSIDE RECORDS SUMMARY | 2025-05-24 08:42 | XMS_ITS | Encounter Summary ---
Author Organization [facility] Address [address] [place] [address] Care Team Providers Care Fiction And Nonfiction Writer Prose Name Role Phone Beti Greenwood MD Unavailable Juani Rhodes NP Unavailable [phone] Letitia Khalil MD Primary Care Provider Un available [facility], Pcp Primary Care Provider Unavailabl e Encounter Details Date Type Department Care Team Description 04/27/2024 Acute Care Physical Therapist Report Medical Records [address] [place] [address] Dilcia Meadows NP Social History Tobacco Use [...] week 07/12/2023 [facility] often [facility] you [facility]? Never 07/12/2023 Do you belong to [...] on filedocumented in this encounter Care Teams Fiction And Nonfiction Writer Prose Relationship Specialty Start Date End Date Letitia Khalil MD 444 [facility] [address] PCP - General Internal Medicine 11/17/23 06/21/24 [facility], Pcp 444 [place] [address] PCP - General Internal Medicine 06/22/24 Beti Greenwood MD 444 [place] [address] UROGYNECOLOGY 07/07/23 Juani Rhodes NP 444 [facility] [place] [address] Cardiology 07/07/23 documented as of this encounter
--- OUTSIDE RECORDS SUMMARY | 2025-05-24 08:42 | XMS_ITS | Encounter Summary ---
[facility] Address [address] [place] [address] Care Team Providers Care Geothermal Hvac Technician Name Role Phone Scot Owen MD Primary Care Provider Unavailable Lukas Bradford MD Primary Care Provider Jan Juárez DO Primary Care Provider UnavailLane Banerjee MD Unavailable Unavailable Beti Greenwood MD Unavailable Juani Rhodes NP Unavailable Letitia Khalil MD Primary Care Provider Un available [facility], Pcp Primary Care Provider Unavailabl e Encounter Details Date Type Department Care Team Description 03/16/2017 [facility] Medical Records [address] [place] [address] Abstract, Provider Social History Tobacco Use Types [...] on filedocumented in this encounter Care Teams Geothermal Hvac Technician Relationship Specialty Start Date End Date Scot Owen MD PCP - General Internal Medicine 01/23/1606/30/21 Lukas Bradford MD PCP - General Internal Medicine 07/01/21 08/10/21 Jan Palomino DO PCP - General Internal Medicine 08/11/21 11/16/23 Letitia Khalil MD [address] [place] [address] [place] [address] PCP - General Internal Medicine 11/17/23 06/21/24 [facility] Pcp [address] [place] [address] [place] [address] PCP - General Internal Medicine 06/22/24 Lane Valdes MD Specialist Cardiovascular Disease 01/14/22 Beti Greenwood MD [address] [place] [address] [place] [address] UROGYNECOLOGY 07/07/23 Juani Rhodes NP 444 [facility] [place] [address] Cardiology 07/07/23 documented as of this encounter
--- OUTSIDE RECORDS SUMMARY | 2025-05-24 08:42 | XMS_ITS | Encounter Summary ---
Author Organization [facility] Address [address] [place] [address] Care Team Providers Care Shell Mold Bonding Machine Operator Name Role Phone AshliAlexel Abebe Primary Care Provider Kristina Gilbert MD Primary Care Provider UnavailScot Hansen MD Primary Care Provider Unavailable Lukas Bradford MD Primary Care Provider Jan Juárez DO Primary Care Provider Unavaila Lane Villalobos MD Unavailable Unavailable Beti Greenwood MD Unavailable Juani Rhodes NP Unavailable [phone] Letitia Khalil MD Primary Care Provider Un available [facility], Pcp Primary Care Provider Unavailabl e Encounter Details Date Type Department Care Team Description 04/26/2012 Refill Adult Medicine [address] [address] Lupis Lisa PA-C Social History Tobacco Use Types Packs/Day [...] often do you attend chur ch or catholic services? Never 07/12/2023 Do you [...] encounter Miscellaneous Notes * Telephone Encounter - Jessica Morales M.A. - 04/26/2012 8:48 AM EDT WHEN WAS THE PATIENT'S LAST APPOINTMENT IN ADULT MEDICINE? 04/05/12 WHEN WAS THE LAST TIME THE PATIENT SAW THEIR PCP? Same as above Does patient have an upcoming appointment? No Controlled substance contract and last issue date of medication reviewed. Patient is due for medication. * Telephone Encounter - Jessica Morales M.A. - 04/26/2012 8:48 AM EDTFrom: BARRON ALFARO To: Lupis Lisa PA-C Sent: TueApr 26, 2012 8:08 AM Subject: Medication Renewal Request Original authorizing provider: EJ Wilcox would like a refill of the following medications: oxycodone-acetaminophen (PERCOCET) 10-325 MG per tablet [Lupis Lisa PA-C] [facility] on 04/27/2012 Comment: documented in this encounter Plan of Treatment Not on file documented as of this encounter Visit Diagnoses Not on filedocumented in this encounter Care Teams Shell Mold Bonding Machine Operator Relationship Specialty Start Date End Date Samuel Cornelius PCP - General 08/29/05 12/24/15 Kristina Chatman MD PCP - General Internal Medicine 12/25/15 01/22/16 Scot Owen MD PCP - General Internal Medicine 01/23/1606/30/21 Lukas Bradford MD PCP - General Internal Medicine 07/01/21 08/10/21 Jan Palomino DO PCP - General Internal Medicine 08/11/21 11/16/23 Letitia Khalil MD [address] [place] [address] [place] [address] PCP - General Internal Medicine 11/17/23 06/21/[address] [place] [address] PCP - General Internal Medicine 06/22/24 Lane Valdes MD Specialist Cardiovascular Disease 01/14/22 Beti Greenwood MD [address] [place], [place] [address] [address] UROGYNECOLOGY 07/07/23 Juani Rhodes NP 444 [facility] [place] [address] Cardiology 07/07/23 documented as of this encounter
--- OUTSIDE RECORDS SUMMARY | 2025-05-24 08:42 | XMS_ITS | Encounter Summary ---
Author Organization [facility] Address [address] [place] [address] Care Team Providers Care Coat Operator Insulator Name Role Phone Jan Palomino DO Primary Care Provider UnavailLane Banerjee MD Unavailable Unavailable Beti Greenwood MD Unavailable Juani Rhodes NP Unavailable [phone] Letitia Khalil MD Primary Care Provider Un available [facility], Pcp Primary Care Provider Unavailabl e Encounter Details Date Type Department Care Team Description 09/14/2021 Telephone Adult [facility] - [address] [address] Jan Palomino, Social History Tobacco Use Types [...] on filedocumented in this encounter Care Teams Coat Operator Insulator Relationship Specialty Start Date End Date Jan Palomino DO PCP - General Internal Medicine 08/11/21 11/16/23 Letitia Khalil MD 444 [facility] [place] [address] PCP - General Internal Medicine 11/17/23 06/21/24 [facility], [address] [place] [address] PCP - General Internal Medicine 06/22/24 Lane Valdes MD Specialist Cardiovascular Disease 01/14/22 Beti Greenwood MD 444 [facility] [place] [address] UROGYNECOLOGY 07/07/23 Juani Rhodes, ISAC 444 [facility] [place] [address] Cardiology 07/07/23 documented as of this encounter
--- OUTSIDE RECORDS SUMMARY | 2025-05-24 08:42 | XMS_ITS | Encounter Summary ---
[facility] Organization [facility] Address [address] [place] [address] Care Team Providers Care Metaphysicist Name Role Phone Jan Palomino DO Primary Care Provider UnavailLane Banerjee MD Unavailable Unavailable Beti Greenwood MD Unavailable Juani Rhodes NP Unavailable [phone] Letitia Khalil MD Primary Care Provider Un available [facility], Pcp Primary Care Provider Unavailabl e Encounter Details Date Type Department Care Team Description 03/09/2022 Pt. Non Urgent Medic al Question Adult Medicine - [place] [address] [place] [address] Yelena Garcia MD [address] [place] [address] Social History Tobacco Use Types Packs/Day Years [...] on filedocumented in this encounter Care Teams Metaphysicist Relationship Specialty Start Date End Date Jan Palomino DO PCP - General Internal Medicine 08/11/21 11/16/23 Letitia Khalil MD 4 [facility] [place] [address] PCP - General Internal Medicine 11/17/23 06/21/24 [facility], Pcp [address] [place] [address] [place] [address] PCP - General Internal Medicine 06/22/24 Lane Valdes MD Specialist Cardiovascular Disease 01/14/22 Beti Greenwood MD [address] [place] [address] [place] [address] UROGYNECOLOGY 07/07/23 Juani Rhodes, ISAC 444 [facility] [place] [address] Cardiology 07/07/23 documented as of this encounter
--- OUTSIDE RECORDS SUMMARY | 2025-05-24 08:42 | XMS_ITS | Encounter Summary ---
Author Organization [facility] Address [address] [place] [address] Care Team Providers Care Industrial Truck Mechanic Name Role Phone Jan Palomino DO Primary Care Provider UnavailLane Banerjee MD Unavailable Unavailable Beti Greenwood MD Unavailable Juani Rhodes NP Unavailable Letitia Khalil MD Primary Care Provider Un available [facility], Pcp Primary Care Provider Unavailabl e Encounter Details Date Type Department Care Team Description 01/27/2022 [facility] Medical Records [address] [place] [address] Abstract, Provider Social History Tobacco Use Types [...] often do you attend chur ch or oriental orthodox services? Never 07/12/2023 Do you belong [...] filedocumented in this encounter Care Teams Industrial Truck Mechanic Relationship Specialty Start Date End Date Jan Palomino DO PCP - General Internal Medicine 08/11/21 11/16/23 Letitia Khalil MD [address] [place] [address] [place] [address] PCP - General Internal Medicine 11/17/23 06/21/24 [facility], Pcp [address] [place] [address] [place] [address] PCP - General Internal Medicine 06/22/24 Lane Valdes MD Specialist Cardiovascular Disease 01/14/22 Beti Greenwood MD 4 [facility] [place] [address] UROGYNECOLOGY 07/07/23 Juani Rhodes NP 444 [facility] [place] [address] Cardiology 07/07/23 documented as of this encounter
--- OUTSIDE RECORDS SUMMARY | 2025-05-24 08:42 | XMS_ITS | Encounter Summary ---
Author Organization [facility] Address [address] [place] [address] Care Team Providers Care Road Patcher Name Role Phone Jan Palomino DO Primary Care Provider UnavailLane Banerjee MD Unavailable Unavailable Beti Greenwood MD Unavailable Juani Rhodes NP Unavailable Letitia Khalil MD Primary Care Provider Un available [facility], Pcp Primary Care Provider Unavailabl e Encounter Details Date Type Department Care Team Description 03/09/2022 Pt. Non Urgent Medic al Question Adult Medicine - [address] [address] Jan Palomino DO Social History Tobacco Use [...] on filedocumented in this encounter Care Teams Road Patcher Relationship Specialty Start Date End Date Jan Palomino DO PCP - General Internal Medicine 08/11/21 11/16/23 Letitia Khalil MD 444 [facility] [place] [address] PCP - General Internal Medicine 11/17/23 06/21/24 [facility], Pcp 444 [facility] [place] [address] PCP - General Internal Medicine 06/22/24 Lane Valdes MD Specialist Cardiovascular Disease 01/14/22 Beti Greenwood MD 444 [facility] [place] [address] UROGYNECOLOGY 07/07/23 Juani Rhodes NP 444 [facility] [place] [address] Cardiology 07/07/23 documented as of this encounter
--- OUTSIDE RECORDS SUMMARY | 2025-05-24 08:42 | XMS_ITS | Encounter Summary ---
Author Organization [facility] Address [address] [place] [address] Care Team Providers Care Cnc Specialist Name Role Phone Samuel Cornelius Primary Care Provider Kristina Gilbert MD Primary Care Provider UnavailScot Hansen MD Primary Care Provider Unavailable Lukas Bradford MD Primary Care Provider Jan Juárez DO Primary Care Provider Unavaila Lane Villalobos MD Unavailable Unavailable Beti Greenwood MD Unavailable Juani Rhodes NP Unavailable [phone] Letitia Khalil MD Primary Care Provider Un available [facility], Pcp Primary Care Provider Unavailabl e Reason for Visit * Reason Onset Date Comments medication problems 01/28/2014 Encounter Details Date Type Department Care Team Description 01/28/2014 Telephone Adult Medicine - [address] [address] Samuel Cornelius medication problems Social History Tobacco Use Types Packs/Day [...] Telephone Encounter - Selene Boyle L.P.N. - 01/28/2014 11:53 AM EDT Please see Dr. Kearns recommendation from most recent visit I recommended more regular use of gabapentin at nighttime 300 or 600 mg. * Telephone Encounter - Yi Humphrey - 01/28/2014 10:11 AM EDT What is the name of the medication patient is having a problem with?: Gabapentin What is the problem?: direction change / was written as taken 1 daily but pt states she was told totake 3 a day Is the patient calling about the problem? NO If the patient is not the caller who is? karis feldman / Sarai Is this a NEW medication?: NO How long has the patient been taking this medication? Who prescribed this medication for the patient? 09/05/2013 Who is patients PCP?: Samuel Cornelius Payor: [facility]20 25+/[place] Product Type: HMO [employer] documented in this encounter Plan of Treatment Not on file documented as of this encounter Visit Diagnoses Not on filedocumented in this encounter Care Teams Cnc Specialist Relationship Specialty Start Date End Date Samuel Cornelius PCP - General 08/29/05 12/24/15 Kristina Chatman MD PCP - General Internal Medicine 12/25/15 01/22/16 Scot Owen MD PCP - General Internal Medicine 01/23/1606/30/21 Lukas Bradford MD PCP - General Internal Medicine 07/01/21 08/10/21 Jan Palomino DO PCP - General Internal Medicine 08/11/21 11/16/23 Letitia Khalil MD [address] [place] [address] [place] [address] PCP - General Internal Medicine 11/17/23 06/21/24 [facility], Pcp [address] [place] [address] [place] [address] PCP - General Internal Medicine 06/22/24 Lane Valdes MD Specialist Cardiovascular Disease 01/14/22 Beti Greenwood MD [address] [place] [address] [place] [address] UROGYNECOLOGY 07/07/23 Juani Rhodes NP [address] [place], [place] [address] [address] Cardiology 07/07/23 documented as of this encounter
--- OUTSIDE RECORDS SUMMARY | 2025-05-24 08:42 | XMS_ITS | Encounter Summary ---
Author Organization [facility] Address [address] [place] [address] Care Team Providers Care Spray I Painter Name Role Phone Scot Owen MD Primary Care Provider Unavailable Lukas Bradford MD Primary Care Provider Jan Juárez DO Primary Care Provider UnavailLane Banerjee MD Unavailable Unavailable Beti Greenwood MD Unavailable Juani Rhodse NP Unavailable [phone] Letitia Khalil MD Primary Care Provider Un available [facility], Pcp Primary Care Provider Unavailabl e Encounter Details Date Type Department Care Team Description 11/24/2016 [facility] Medical Records [address] [place] [address] Abstract, Provider Social History Tobacco Use Types [...] often do you attend chur ch or sabianist services? Never 07/12/2023 Do you belong to [...] on filedocumented in this encounter Care Teams Spray I Painter Relationship Specialty Start Date End Date Scot Owen MD PCP - General Internal Medicine 01/23/1606/30/21 Lukas Bradford MD PCP - General Internal Medicine 07/01/21 08/10/21 Jan Palomino DO PCP - General Internal Medicine 08/11/21 11/16/23 Letitia Khalil MD [address] [place] [address] [place] [address] PCP - General Internal Medicine 11/17/23 06/21/24 [facility] Pcp [address] [place] [address] [place] [address] PCP - General Internal Medicine 06/22/24 Lane Valdes MD Specialist Cardiovascular Disease 01/14/22 Beti Greenwood MD [address] [place] [address] [place] [address] UROGYNECOLOGY 07/07/23 Juani Rhodes NP 444 [facility] [place] [address] Cardiology 07/07/23 documented as of this encounter
== END 2025-05-24 08:49 | disposition home or self-care (01) ==
LOC: HO.PMC 08:21
PROVIDERS: PCP Physician Assistant Medical; Visit Provider Nurse Practitioner Family
DX: M47.816 Spondylosis without myelopathy or radiculopathy, lumbar region (principal); G89.4 Chronic pain syndrome; Z79.891 Long term (current) use of opiate analgesic; M50.30 Other cervical disc degeneration, unspecified cervical region
CPT/HCPCS: 99214; G2211

== ENCOUNTER → 2025-05-24 08:20 | Outpatient (BNVA) | payer MEDICARE, SELFPAY | PROVIDERS: PCP Physician Assistant Medical; Visit Provider Nurse Practitioner Family | DX: M47.816 Spondylosis without myelopathy or radiculopathy, lumbar region (principal); Z79.891 Long term (current) use of opiate analgesic; G89.4 Chronic pain syndrome; M50.30 Other cervical disc degeneration, unspecified cervical region; Z87.891 Personal history of nicotine dependence | CPT/HCPCS: 99212 ==

== ENCOUNTER 2025-07-23 08:15 | Outpatient (AMB) | payer MEDICARE, SELFPAY ==
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
--- OUTSIDE RECORDS SUMMARY | 2025-07-23 08:27 | XMS_ITS | Clinical Summary ---
Author Organization [facility] [email or web address] Address [address] [place] [address] Phone Care Team Providers Care Meat Loiner Name Role Phone Chyna Reina MD Primary Care Provider [phone] Allergies Active Allergy Reactions Criticality Noted Date [...] 1 (one) time each day. 3 Active oxyCODONE (ROXICODONE) 5 mg immediate release tabletIndicati ons:acute post op pain Take 1 tablet (5 mg total) by mouth every 6 (six) hours if needed for severe pain. For acute postoperative pain Max Daily Amount: 20 mg 6 each 5 Active estradioL (ESTRACE) 0.01 % (0.1 mg/gram) vaginal cream Apply dime size amount to vagina digitally nightly for 2 weeks, then 2 times per week. 127.5 g 3 Active dilTIAZem CD (CARDIZEM CD) 180 mg 24 hr capsule TAKE 1 CAPSULE BY MOUTH EVERY DAY 90 capsule 3 Active docusate sodium (COLACE) 100 mg capsule Take 1 capsule (100 mg total) by mouth 2 (two) times a day if needed for constipation. Active Active Problems Problem Noted Date Diagnosed [...] of fever, nausea, or vomiting -Follow with uro-senior consumer insights consultant Anxiety 11/17/2023 Vaginal atrophy 03/30/2023 Overview (05/08/2024): Added automatically from request for surgery [id number] Mitral valve prolapse 02/25/2022 Overview (05/29/2024): Last Assessment & Plan: Patient reports that she has history of mitral valve prolapse however her most recent echocardiogram did not show any structural abnormalities. Cardiac function is normal. Assessment & Plan (10/30/2024 11:14 AM EST): Orders: ECG 12 lead SVT (supraventricular tachycardia) (CMS/HCC V24) 02/23/2022 Overview (05/29/2024): Last Assessment & [...] currently following with pain management at [facility] [place] Diverticulitis of colon without hemorrhage 04/07 Degeneration of cervical intervertebral disc 02/2006 Overview (05/29/2024): excision/fusion c5/6- Dr. Contreras Depression with anxiety 02/02/2006 Overview (05/29/2024): [facility] - stopped in 2011 - Samuel [...] 08/19/2003 Overview (05/29/2024): Dr. Maykel Ramírez - [facility] 2003 MRI and bone scan Herpes simplex type II infection 11/17/1995 Overview (05/29/2024): Confirmed by culture 05/22/0711/09 - valacyclovir 500mg qd for suppression Resolved Problems Problem Noted Date Diagnosed Date Resolved Date Uterovaginal prolapse, unspecified 03/30/2023 12/17/2024 Overview (05/08/2024): Added automatically from request for surgery [id number] Encounters Date Type Department Care Team Description 06/20/2025 Telephone [facility] [address] [place] [address] Khari Parrish NP 05/13/2025 8:00 AM EDT Office Visit Internal Medicine - [address] [place] [address] hCyna Reina MD SVT (supraventricular tachycardia) ([facility] V24) (Primary Dx); Hyperlipidemia, unspecified hyperlipidemia type; Diabetes mellitus screening; Chronic pain syndrome; Sprain of right ankle, unspecified ligament, sequela; Laceration of scalp, sequela from Last 3 Months Immunizations Immunization Administration Dates Next Due COVID-19 (Moderna/Spikevax) 11yo [...] SALPINGECTOMY; Surgeon: Beti Greenwood MD; Location: [facility] MAIN OPERATING ROOM; Service: Gynecology; Laterality: N/A; VAGINAL PROLAPSE REPAIR 05/24/2023 N/A PROCEDURE:VAGINAL PROLAPSE REPAIR;COMMENT:Procedure: VAGINAL COLPOPEXY (INTRAPERITONEAL APPROACH); Surgeon: Beti Greenwood MD; Location: [facility] MAIN OPERATING ROOM; Service: Gynecology; Laterality: N/A; COLPORRHAPHY 05/24/2023 N/A PROCEDURE:COLPORRHAPHY;COMM ENT:Procedure: POSTERIOR REPAIR; Surgeon: Beti Greenwood MD; Location: [facility] MAIN OPERATING ROOM; Service: Gynecology; Laterality: N/A; CYSTOSCOPY 05/24/2023 N/A PROCEDURE:CYSTOSCOPY;COMMEN T:Procedure: CYSTOSCOPY; Surgeon: Beti Greenwood MD; Location: [facility] MAIN OPERATING ROOM; Service: Gynecology; Laterality: N/A; OTHER SURGICAL HISTORY 05/24/2023 N/A PROCEDURE:TVT / TOT UTERINE SUSPENSION;COMMENT:Procedur e: PLACEMENT OF MESH MID-URETHRAL SLING; Surgeon: Beti Greenwood MD; Location: [facility] MAIN OPERATING ROOM; Service: Gynecology; Laterality: N/A; OTHER SURGICAL HISTORY 04/22/05 PROCEDURE: AL LAMOPLASTY CERVICAL DCMPRN CORD 2/> SEG RCNSTJ; COMMENT: Dr. Contreras OTHER SURGICAL HISTORY PROCEDURE: AL LIG/TRNSXJ FLP TUBE ABDL/VAG APPR UNI/BI TONSILLECTOMY ADENOIDECTOMY, BILATERAL MYRINGOTOMY AND TUBES PROCEDURE: AL TONSILLECTOMY & ADENOIDECTOMY <AGE 11 COLONOSCOPY 07/16/11 [facility] PROCEDURE: HISTORICAL COLONOSCOPY; COMMENT: tics; repeat in five yrs CARPAL TUNNEL RELEASE 10/08/15 Left PROCEDURE: HISTORICAL CARPAL TUNNEL REL; COMMENT: Dr. Negrete NOSE SURGERY PROCEDURE: AL UNLISTED PROCEDURE NOSE; COMMENT: rhinoplasty Medical History [...] Years Used Date Smoking Tobacco: Former Cigarettes 13.9 0 10/27/2005 - 09/29/2019 Smokeless Tobacco: Never Alcohol Use Standard Drinks/Week Comments Yes 0 (1 standard drink = 0.6 oz pur e alcohol) occassionally Interpersonal Safety Answer Date Record ed Physical Abuse Unrecognized value 12/17/2024 Verbal Abuse Unrecognized value 12/17/2024 Comments No Sex and Gender Information [...] - [address] [place] [address] Chyna Reina MD [address] [place], [place] [id number] Health Maintenance Due Date Last Done Comments [...] this topic Medical Devices Implanted Type Area Home Visitor Device Identifier Shelf Expiration Date Model / Serial / Lot Mesh Y [employer] - Sn/A - [id number] Implanted:Qty: 1 on 12/17/2024 by Beti Greenwood MD at [facility] Surgical Mesh Sling Implants N/A: Urinary Bladder [employer] 02/16/2027 [id number] / N/A / [id number] System Gynecare Tvt Exact 3mm Troc Retro Pubic Urnry Incont [facility] [id number] Implanted:Qty: 1 on 05/24/2023 by Beti Greenwood MD N/A: Vagina [facility] [employer] 12/27/2023 TVTRL / / [id number] Procedures Procedure Name Priority Date/Time Associated Diagnosis [...] on 11/25/2024 5:53 PM. Workstation Name - [id number] -------- FINAL REPORT -------- Dictated By: Nicanor Lerner Dictated Date: 11/24/2024 19:24 ET Assigned Physician: Nicanor Lerner Reviewed and Electronically Signed By: Nicanor Lerner Signed Date: 11/25/2024 17:53 ET Workstation ID: [id number] Transcribed By: Self Edit Transcribed Date: 11/25/2024 [...] Lerner on 11/25/2024 5:53 PM.Workstation Name - [id number] -------- FINAL REPORT -------- Dictated By: Nicanor Lerner Dictated Date: 11/24/2024 19:24 ET Assigned Physician: Nicanor Lerner Reviewed and Electronically Signed By: Nicanor Lerner Signed Date: 11/25/2024 17:53 ET Workstation ID: [id number] Transcribed By: Self Edit Transcribed Date: 11/25/2024 [...] density per current federal guidelines. Exam Location: [facility], [address] [place] [address], [id number], . Report reviewed and signed by : Dr. Jessica Saldivar on 11/27/2024 1:23 PM. Workstation Name - [id number] -------- FINAL REPORT -------- Dictated By: Jessica Saldivar Dictated Date: 11/27/2024 13:18 ET Assigned Physician: Jessica Saldivar Reviewed and Electronically Signed By: Jessica Saldivar Signed Date: 11/27/2024 13:23 ET Workstation ID: [id number] Transcribed By: Self Edit Transcribed Date: 11/27/2024 [...] breastdensity per current federal guidelines. Exam Location: [facility], [address] [place] [address], [facility], . Report reviewed and signed by : Dr. Jessica Saldivar on 11/27/2024 1:23 PM.Workstation Name - [id number] -------- FINAL REPORT -------- Dictated By: Jessica Saldivar Dictated Date: 11/27/2024 13:18 ET Assigned Physician: Jessica Saldivar Reviewed and Electronically Signed By: Jessica Saldivar Signed Date: 11/27/2024 13:23 ET Workstation ID: [id number] Transcribed By: Self Edit Transcribed Date: 11/27/2024 13:18 ET us Chyna Reina MD IM BI PROCEDURES Final Result * (ABNORMAL) Lipid panel with reflex to direct LDL (11/06/2024 8:55 AM EDT) Cholesterol 255(H) 0 - 200 mg/dL LAB CHEMISTRY METHOD 11/06/2024 12:15 PM EDT [facility] Triglycerides 157(H) 0 - 150 mg/dL LAB CHEMISTRY METHOD 11/06/2024 12:15 PM EDT [facility] HDL 72 >=40 mg/dL LAB CHEMISTRY METHOD 11/06/2024 12:15 PM EDT [facility] LDL Calculated 152(H) 0 - 100 mg/dL LAB CHEMISTRY METHOD 11/06/2024 12:15 PM EDT [facility] VLDL Cholesterol Mert 31.4 mg/dL LAB CHEMISTRY METHOD 11/06/2024 12:15 PM EDT [facility] Non HDL Chol. (LDL+VLDL) 183(H) <145 mg/dL LAB CHEMISTRY METHOD 11/06/2024 12:15 PM EDT [facility] Chol/HDL Ratio 3.5 0.0 - 4.4 LAB CHEMISTRY METHOD 11/06/2024 12:15 PM EDT [facility] Blood Venous blood specimen / Unknown Venipuncture / Unknown 11/06/2024 8:55 AM EDT 11/06/2024 8:55 AM EDT Chyna Reina MD LAB BLOOD ORDERABLES Final Resul t [facility] [address] [place] [address], * Falls Risk Assessment (07/12/2023) Pathologist [facility] Falls Risk Assessment abstracted Historical Provider HEALTH MAINTENANCE Final Result * Depression Screening (07/12/2023) Pathologist [facility] Depression Screening abstracted Historical Provider HEALTH MAINTENANCE Final Result * Colonoscopy (05/26/2022) Pathologist [facility] Colonoscopy no interpretation , abstracted Anatomical Region Laterality Modality Other Historical Dorothea MIRANDA HEALTH MAINTENANCE Final Result * Hepatitis C Screening (08/02/2016) Hepatitis C Screening abstracted us Historical Provider HEALTH MAINTENANCE Final Result from Last 3 Months or Most Recently Relevant to Health Maintenance Insurance MEDICARE [employer] Advance Directives * Full Code - Default [...] currently active code status orders. Care Teams Meat Loiner Relationship Specialty Start Date End Date Chyna Reina MD [address] [place] [address] PCP - General Family Medicine 10/26/24
--- OUTSIDE RECORDS SUMMARY | 2025-07-23 08:27 | XMS_ITS | Clinical Summary ---
Author Organization [facility] Address [address] [place] [address] Care Team Providers Care Torch Operator Name Role Phone Jan Palomino DO Primary Care Provider [phone] Allergies Active Allergy Reactions Criticality Noted Date [...] Overview: Added automatically from request for surgery [id number] Vaginal atrophy 03/30/2023 Overview: Added automatically from request for surgery [id number] Social History Tobacco Use Types Packs/Day Years [...] this topic Medical Devices Implanted Type Area Machinist Brake Device Identifier Shelf Expiration Date Model / Serial / Lot System Gynecare Tvt Exact 3mm Troc Retro Pubic Urnry Incont [facility] [id number] - [id number] Implanted:Qty: 1 on 05/24/2023 by Beti Greenwood MD at [facility] N/A: Vagina [facility] [employer] 12/27/2023 TVTRL / / [id number] Care Teams Torch Operator Relationship Specialty Start Date End Date Jan Palomino DO [address] [place] [id number] PCP - General Family Medicine 05/18/23
--- OUTSIDE RECORDS SUMMARY | 2025-07-23 08:27 | XMS_ITS | Data Portability ---
Author Organization [facility], [address] Address [address] [place] [address] Assessment No assessment recorded. Plan of Treatment Reminders Order Date Submit Date Provider Last Modified By Organization Details Last Modified Time Details Appointments None recorded. Lab urinalysis, dipstick 2023 024 [email or web address], [address] [place], [address], 11:46:37 culture, urine 2023 024 VIVIAN [facility] ([facility], [address] [place] [address], [place], [address], 4 18:06:08 Referral None recorded. Procedures None recorded. Surgeries None recorded. Imaging None recorded. Medication Orders Pyridium 100 mg tablet 2023 024 [facility] #[id number], [address] [place], [address], 4 11:46:37 nitrofurant oin monohydrate /macrocryst als 100 mg capsule 2023 024 [id number] [address] [place], [address], 4 18:35:37 Patient TargetsNo targets recorded. Patient InstructionsNo instructions recorded. Reason for Referral None Reported. Results Created Date Observation Date Name Description Value Unit Range Abnormal Flag Note LastModifiedBy Organization Detail LastModifiedTime 02/12/20 24 02/12/2024 urina lysis , dipst ick Unknown Analyte Normal = light yellow Not Available [facility] [address] [place] [address], [address], 02/12/2024 10:50:52 02/12/20 24 02/12/2024 urina lysis , dipst ick Unknown Analyte Dark Yellow Not Available [facility] [address] [place] [address], [address], 02/12/2024 10:50:52 02/12/20 24 02/12/2024 urina lysis , dipst ick Unknown Analyte Normal = clear Not Available [facility] [address] [place] [address], [address], 02/12/2024 10:50:52 02/12/20 24 02/12/2024 urina lysis , dipst ick Unknown Analyte Cloudy Not Available [facility] [address] [place] [address], [address], 02/12/2024 10:50:52 02/12/20 24 02/12/2024 urina lysis , dipst ick Unknown Analyte Normal = negati ve Not Available [facility] [address] [place] [address], [address], 02/12/2024 10:50:52 02/12/20 24 02/12/2024 urina lysis , dipst ick Unknown Analyte 100 mg/dL Not Available [facility] [address] [place] [address], [address], 02/12/2024 10:50:52 02/12/20 24 02/12/2024 urina lysis , dipst ick Unknown Analyte Normal = Negati ve Not Available [facility] [address] [place] [address], [address], 02/12/2024 10:50:52 02/12/20 24 02/12/2024 urina lysis , dipst ick Unknown Analyte Negati ve Not Available [facility] [address] [place] [address], [address], 02/12/2024 10:50:52 02/12/20 24 02/12/2024 urina lysis , dipst ick Unknown Analyte Normal = Negati ve Not Available [facility] [address] [place] [address], [phone], 02/12/2024 10:50:52 02/12/20 24 02/12/2024 urina lysis , dipst ick Unknown Analyte 15 mg/dL Not Available [facility] [address] [place] [address], [address], 02/12/2024 10:50:52 02/12/20 24 02/12/2024 urina lysis , dipst ick Unknown Analyte Normal = 1.010, 1.015, 1.020 Not Available [facility] [address] [place] [address], [address], 02/12/2024 10:50:52 02/12/20 24 02/12/2024 urina lysis , dipst ick Unknown Analyte 1.010 Not Available [facility] [address] [place] [address], [address], 02/12/2024 10:50:52 02/12/20 24 02/12/2024 urina lysis , dipst ick Unknown Analyte Normal = Negati ve Not Available [facility] [address] [place] [address], [address], 02/12/2024 10:50:52 02/12/20 24 02/12/2024 urina lysis , dipst ick Unknown Analyte Trace- intact Not Available [facility] [address] [place] [address], [address], 02/12/2024 10:50:52 02/12/20 24 02/12/2024 urina lysis , dipst ick Unknown Analyte Normal = 6.5, 7.0, 7.5, 8.0 Not Available [facility] [address] [place] [address], [address], 02/12/2024 10:50:52 02/12/20 24 02/12/2024 urina lysis , dipst ick Unknown Analyte 5.0 Not Available [facility] [address] [place] [address], [address], 02/12/2024 10:50:52 02/12/20 24 02/12/2024 urina lysis , dipst ick Unknown Analyte Normal = Negati ve Not Available [facility] [address] [place] [address], [address], 02/12/2024 10:50:52 02/12/20 24 02/12/2024 urina lysis , dipst ick Unknown Analyte Trace Not Available [facility] [address] [place] [address], [address], 02/12/2024 10:50:52 02/12/20 24 02/12/2024 urina lysis , dipst ick Unknown Analyte Normal = 0.2, 1.0 Not Available [facility] [address] [place] [address], [address], 02/12/2024 10:50:52 02/12/20 24 02/12/2024 urina lysis , dipst ick Unknown Analyte 1.0 E.U./d L Not Available [facility] [address] [place] [address], [address], 02/12/2024 10:50:52 02/12/20 24 02/12/2024 urina lysis , dipst ick Unknown Analyte Normal = Negati ve Not Available [facility] [address] [place], [address], 02/12/2024 10:50:52 02/12/20 24 02/12/2024 urina lysis , dipst ick Unknown Analyte Positi ve Not Available [facility] [address] [place] [address], [address], 02/12/2024 10:50:52 02/12/20 24 02/12/2024 urina lysis , dipst ick Unknown Analyte Normal = Negati ve Not Available [facility] [address] [place] [address], [address], 02/12/2024 10:50:52 02/12/20 24 02/12/2024 urina lysis , dipst ick Unknown Analyte Large Not Available [facility] [address] [place] [address], [address], 02/12/2024 10:50:52 02/13/20 24 02/15/2024 URINE CULTU REANDREINA NE urine culture, routine FINAL REPORT abnormal Not Available [facility] ([facility]) [address] [facility], [place], [address], 02/15/2024 14:08:26 02/13/20 24 02/15/2024 URINE CULTU [...] p A). (CLSI ) Not Available [facility] ([facility]) [address] [facility], [place], [address], 02/15/2024 14:08:26 Result Notes None recorded. Problems Name Problem SNOMED Code Status Onset Date Resolution Date Notes Provider Name and Address Organization Details Recorded Time Dysuria-fr equency syndrome 7234944 Active 024 Joan Hopper, [facility] [address] [place], [address] , [place] - [facility] 02/12/2024 11:44:23 Problem Notes None recorded. Medical Equipment None Reported. Allergies Allergen ID Allergen Name Allergen Category Reaction Reaction Severity Criticality Documentation Date Start Date Code Code System Note Provider Name and Address Organization Details Recorded Time 445465 Substance with sulfonami de structure and antibacte rial mechanism of action (substanc e) medicatio n Not available Not available Not available 02/12/2024 95945 8003 SNOMED Sheeba bills, [place] - [facility] 4 10:48:43 278682 Bactrim medicatio n Not available Not available Not available 02/12/2024 05392 9 RxNorm Sheeba bills, [place] - [facility] [...] weight Body temperature Heart rate Oxygen saturation Systolic And Diastolic Provider Name and Address Organization Details Last Updated DateTime 4 18 /min 167.64 cm 25.8 kg/m2 25245.7 8 g 97.9 [degF] 93 /min 97 % 147/84 mm[Hg] Sheeba Polo [place] - [facility] 10:51:36 Social History Question Answer Notes LastModified by Organizat ion Details LastModified Time Tobacco Smoking Status Former Smoker Sheeba Polo [facility] bills [facility] 02/12/2024 10:50:09 When Did You [...] Diagnosis SNOMED-CT Code Diagnosis ICD10 Code Diagnosis IMO Codes Diagnosis Note [id number] [address] [facility] [place] [address] 02/23/2020 08:37:39 02/23/2020 09:36:03 [id number] Joan Hopper NP [address] [address] 02/12/2024 10:37:17 02/12/2024 11:52:13 Dysuria-frequency syndrome 8010996 R30.0 The following are recommenda tions to [...] was prescribed . Thank you for using [facility] - please don't hesistate to call our [...] SUPPLEMENT) Neha Montilla 02/12/2024 1 MEDICARE B-[place]: [employer] Neha Montilla [id number] 1 Neha Montilla Notes Date Note Type Note Provider Name and Address Organization Details Recorded Time 02/12/2024 text/html UTI female UCRep orted by PatientUrinary problemsFor uti symptoms, patient reportsurgency,pain during urination,burning sensation during urination, andabdominal painbut reportsno blood in the urine,no vaginal discharge,no pain in the flank,no fever/chills,no incontinence, andno recurrent uti. For source of patient information, patient reportsinformation obtained from patientandpatient arrived at urgent care ambulatory. For severity, patient reportsmoderate. For duration, patient reportsstarted ___and2 days. For modifying factors, patient reportsnothing gives relief. Urinary Complaint FemaleReported by Patient patient comes in for possible bladder infectionhas hx of UTI, pain when urinating and a little abdominal pain Joan Hopper, [facility] [address] [place], [address], [place] - [facility] 02/14/2024 18:37:58 OBGyn Episode No OBEpisode recorded.
--- OUTSIDE RECORDS SUMMARY | 2025-07-23 08:27 | XMS_ITS | Encounter Summary ---
Author Organization [facility] [place] [address] Care Team Providers Care Golf Ball Cover Treater Name Role Phone Chyna Reina MD Primary Care Provider [phone] Encounter Details Date Type Department Care Team (Late st Contact Info) Description 06/20/2025 Telephone [facility] [address] [place] [address] Khari Parrish NP [address] [place] [address] [address] [place] [address] Social History Tobacco Use Types Packs/Day Years [...] as of this encounter Progress Notes * Judith Miller - 06/20/2025 3:47 PM EDT I called the patient to schedule a follow up office visit and no answer. I left a message on the machine with details and the number to call back and schedule at their earliest convenience. documented in this encounter Plan of Treatment Upcoming Encounters Date Type Department Care Team (Late st Contact Info) Description 2025 8:00 AM EDT Office Visit [facility] [place] [address] Chyna Reina MD [address] [place] [address] documented as of this encounter Visit Diagnoses Not on filedocumented in this encounter Additional Health Concerns Assessment Noted Time PHQ-9 Depression Total Score: 0 05/13/20 8:07 AM EDT A fall risk assessment has been complete d for the patient 11/08/2024 8:27 AM EDT documented as of this encounter Care Teams Golf Ball Cover Treater Relationship Specialty Start Date End Date Chyna Reina MD [address] [place] [address] PCP - General Family Medicine 10/26/24 documented as of this encounter
--- OUTSIDE RECORDS SUMMARY | 2025-07-23 08:27 | XMS_ITS | Clinical Summary ---
Author Organization [facility] Address [address] [place] [address] Care Team Providers Care Family Services Assistant Name Role Phone Pcp, No Primary [...] (10/19/2024): Added automatically from request for surgery [id number] Vaginal atrophy 03/30/2023 Overview (10/19/2024): Added automatically from request for surgery [id number] Mitral valve prolapse 02/25/2022 Overview (10/19/2024): Last [...] Description 04/25/2025 8:00 AM EDT Office Visit [facility] [address] [address] Yonatan Jasmine MD Jaremko, Marcin, MD Laceration of scalp, subsequent encounter (Primary Dx) from Last 3 Months Social History Tobacco [...] - PCV) 1973 Mammogram 1994 Colonoscopy 11/12/1999 RSV Vaccine 50 years and older and Patients (1 - Risk 50-74 years 1-dose series) 2004 Zoster (Shingles) Vaccine (1 of 2) 2004 DXA Bone Density (Females,Ages 65 and older) 11/12/2019 Influenza Vaccine 03/29/2025 04/16/2024, , 04/14/2023, Additional history exists COVID-19 Vaccine ( season) 2025 04/14/2023, 05/07/2022, 01/06/2022, Additional history exists Hepatitis B Vaccines Aged Out No long er eligible based on patient's age to complete this topic Insurance MEDICARE PART A & B [facility] Care Teams Family Services Assistant Relationship Specialty Start Date End Date Pcp, No PCP - General General Medicine 09/27/24
[2025-07-23 08:32] VITALS: BP 150/75; PULSE 94; O2SAT 99; BMI 25.4
== END 2025-07-23 08:51 | disposition home or self-care (01) ==
LOC: HO.PMC 08:15
PROVIDERS: PCP Physician Assistant Medical; Visit Provider Nurse Practitioner Family
DX: M47.816 Spondylosis without myelopathy or radiculopathy, lumbar region (principal); G89.4 Chronic pain syndrome; Z79.891 Long term (current) use of opiate analgesic; M50.30 Other cervical disc degeneration, unspecified cervical region
CPT/HCPCS: 99214; G2211

== ENCOUNTER → 2025-07-23 08:15 | Outpatient (BNVA) | payer MEDICARE, SELFPAY | PROVIDERS: PCP Physician Assistant Medical; Visit Provider Nurse Practitioner Family | DX: M47.816 Spondylosis without myelopathy or radiculopathy, lumbar region (principal); G89.4 Chronic pain syndrome; M50.30 Other cervical disc degeneration, unspecified cervical region; M79.7 Fibromyalgia; Z51.81 Encounter for therapeutic drug level monitoring; Z79.891 Long term (current) use of opiate analgesic | CPT/HCPCS: 99212 ==